=== PATIENT | male | born 1930 | race Caucasian/White ===

== ENCOUNTER 2017-09-30 11:00 | Inpatient (IN) | payer OTHER, BC ==
[2017-10-01 14:30] VITALS: BMI 19.3
[2017-10-01] MEDS ORDERED: SODIUM CHLORIDE 0.45% 1,000 ML IV SCH (15:00)
--- NOTE | 2017-10-01 15:18 | HP ---
Admitting History and Physical - Primary Care Physician PCP: Michael Lenz (While in hospital [facility]) - Admission Chief Complaint: None offered History of Present Illness: 86 yo male with PMHx noted below. Sent in for EVAR 10/01/17. Resting comfortably without complaint. His initial H&P/pre-op clearance was completed on 09/24/[address] Lenz. While patient is in the hospital he will be followed by the [facility]. 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 No: AFIB, Aneurysm, Aortic Insufficiency, Aortic Stenosis, CHF, Deep Vein Thrombosis, [place], Mitral Insufficiency, Mitral Stenosis, Murmur, Pulmonary Hypertension Musculoskeletal: Yes: Chronic low back pain (with radiculopathy) Rheumatology: Yes: Gout, Other (Polymyalgia Rheumatica) Endocrine: Yes: Hypothyroidism. No: [place]'s Disease, [place]'s Disease, Diabetes Insipidus, Diabetes Mellitus, Hyperparathyroidism, Hyperthyroidism, Osteopenia, SIADH, Other - Past Surgical History Past Surgical History: Yes: Appendectomy, CABG ([facility]), Tonsillectomy. No: None, AAA Repair, AICD, Amputation, Arthrosocopy, AV Fistula/Graft, Bariatric Surgery , Breast Biopsy, Bypass, Carotid Endarterectomy, Cataract Removal, Cholecystectomy, Colectomy, Colonoscopy, Colostomy, Craniotomy, , Cystectomy, Hernia Repair, Hysterectomy, Ileal Conduit, Ileosotomy, Joint Replacement, Kidney Transplant, Laminectomy, Liver Transplant, Mastectomy, Nephrectomy, Oopherectomy, Orchiectomy, Permanent Pacemaker, Prostatectomy, Splenectomy, Stent, Thoracotomy, TURP, Tubal Ligation, Upper Endoscopy, Valve Replacement, Vasectomy, Vein Stripping/Ligation - Advance Directives Advance Directives: Yes: Health Care Proxy - Smoking History Smoking history: Never smoked Have you smoked in the past 12 months: No Aproximately how many cigarettes per day: 0 - Alcohol/Substance Use Hx Alcohol Use: Yes (wine rarely) <Elvin Garcia P - Last Filed: 10/01/17 15:13> Home Medications <Elvin Garcia P - Last Filed: 10/01/17 15:13> <Cong Morris - Last Filed: 10/02/17 11:04> - Allergies Allergies/Adverse Reactions: Allergies Allergy/AdvReac Type Severity Reaction Status Date / Time No Known Allergies Allergy Unverified 02/07/12 18:12 - Home Medications Home Medications: Ambulatory Orders Metoprolol Tartrate [Lopressor -] 50 mg PO BID #0 tablet 02/09/12 Levothyroxine [Synthroid -] 50 mcg PO DAILY 12/19/14 Cholecalciferol (Vitamin D3) [Vitamin D3] 5,000 unit PO DAILY 12/20/14 Brimonidine Tartrate/Timolol [Combigan Eye Drops] 1 drop OD DAILY 10/01/17 Brimonidine Tartrate/Timolol [Combigan Eye Drops] 5 ml OS BID 10/01/17 Eluxadoline [Viberzi] 75 mg PO DAILY 10/01/17 Ibuprofen [Advil -] 200 mg PO PRN PRN 10/01/17 Review of Systems - Review of Systems Constitutional: reports: No Symptoms Eyes: reports: No Symptoms HENT: reports: No Symptoms Neck: reports: No Symptoms Cardiovascular: reports: No Symptoms Respiratory: reports: No Symptoms Gastrointestinal: reports: No Symptoms Genitourinary: reports: No Symptoms Musculoskeletal: reports: Back Pain Integumentary: reports: No Symptoms Neurological: reports: No Symptoms Endocrine: reports: No Symptoms Hematology/Lymphatic: reports: No Symptoms Psychiatric: reports: No Symptoms <Elvin Garcia - Last Filed: 10/01/17 15:13> Physical Examination Vital Signs: Vital Signs Temperature 97.3 F L 10/01/17 14:11 Pulse Rate 57 L 10/01/17 14:11 Respiratory Rate 20 10/01/17 14:11 Blood Pressure 88/51 10/01/17 14:11 O2 Sat by Pulse Oximetry (%) 98 10/01/17 14:11 Constitutional: Yes: Well Nourished, No Distress, Calm Eyes: Yes: WNL HENT: Yes: WNL, Atraumatic, Normocephalic Neck: Yes: WNL, Trachea Midline Cardiovascular: Yes: WNL, Regular Rate and Rhythm Respiratory: Yes: WNL, Regular, CTA Bilaterally Gastrointestinal: Yes: WNL, Normal Bowel Sounds. No: Pulsatile Mass ...Rectal Exam: Yes: Deferred Renal/: Yes: WNL Musculoskeletal: Yes: WNL Extremities: Yes: WNL Edema: No Peripheral Pulses WNL: Yes Integumentary: Yes: WNL Neurological: Yes: WNL, Alert ...Motor Strength: WNL Psychiatric: Yes: WNL, Alert <Elvin Garcia P - Last Filed: 10/01/17 15:13> Vital Signs: Vital Signs Temperature 98.5 F 10/02/17 06:00 Pulse Rate 53 L 10/02/17 06:00 Respiratory Rate 20 10/02/17 06:00 Blood Pressure 107/63 10/02/17 06:00 O2 Sat by Pulse Oximetry (%) 100 10/01/17 20:52 <Cong Morris - Last Filed: 10/02/17 11:04> Problem List - Problems (1) Aneurysm of infrarenal abdominal aorta Code(s): I71.4 - ABDOMINAL AORTIC ANEURYSM, WITHOUT RUPTURE <Elvin Garcia P - Last Filed: 10/01/17 15:13> Assessment/Plan Patient is pre-op for EVAR 10/02/17 NPO after midnight except PO meds IV hydration Type and screen SCIP iv abx ordered GI / DVT ppx Medically cleared for procedure (clearance is in pt's paper chart) <Elvin Garcia P - Last Filed: 10/01/17 15:13> History reviewed. Patient with enlarging AAA over past 3 years with rapid rate of growth. Discussed risks of surgery at length with patient and HCP and they wish to proceed. <Cong Morris - Last Filed: 10/02/17 11:04>
[2017-10-01] MEDS: METOPROLOL TARTRATE 50 MG TABLET (FP) PO SCH (21:27)
[2017-10-02] MEDS ORDERED: LEVOTHYROXINE NA 50 MCG TABLET (FP) PO SCH (07:00)
[2017-10-02] MEDS ORDERED: LIDOCAINE HCL 1%, 10 MG/ML (20ML VIAL) ONE (07:30)
[2017-10-02] MEDS ORDERED: HEPARIN NA (PORCINE) 5,000 UNITS/ML 1ML VIAL ONE (07:30)
[2017-10-02] MEDS ORDERED: CEFAZOLIN 1 GM PUSH 1 GM/10 ML DISP.SYRIN IVPUSH ONE (08:00)
[2017-10-02] MEDS ORDERED: MIDAZOLAM HCL 2 MG/2 ML SINGLE DOSE VIAL ONE ×3 (08:11→10:23)
[2017-10-02] MEDS ORDERED: ceFAZolin SODIUM 1 GM VIAL IVPB ONE (08:23)
[2017-10-02] MEDS ORDERED: LIDOCAINE HCL 1%, 10 MG/ML (50 mL VIAL) IJ ONE (08:29)
[2017-10-02] MEDS ORDERED: PROPOFOL 20 ML ONE ×5 (08:33)
[2017-10-02] MEDS ORDERED: PATIENT'S OWN MEDICATION (NON-FORMULARY) (Brimonidine Tartrate/Timolol [Combigan 0.2%-0.5% OD SCH (10:00)
[2017-10-02] MEDS ORDERED: ELUXADOLINE 75 MG PO SCH (10:00)
[2017-10-02] MEDS ORDERED: CHOLECALCIFEROL (VITAMIN D3) 1,000 UNIT TABLET (FP) PO SCH (10:00)
[2017-10-02] MEDS: METOPROLOL TARTRATE 50 MG TABLET (FP) PO SCH ×2 (10:04→21:43)
[2017-10-02] MEDS ORDERED: PROMETHAZINE HCL 25 MG/1 ML VIAL IVPUSH PRN ×2 (11:00→11:45)
[2017-10-02] MEDS ORDERED: oxyCODONE HCL 5 MG TABLET PO PRN ×2 (11:00→11:45)
[2017-10-02] MEDS ORDERED: ONDANSETRON 4 MG/2 ML VIAL IVPUSH PRN ×3 (11:00→21:25)
[2017-10-02] MEDS ORDERED: LACTATED RINGERS SOLUTION 1,000 ML IV SCH ×2 (11:00→11:45)
--- NOTE | 2017-10-02 11:20 | OP ---
Operative Note - Note: Operative Date: 10/02/17 Pre-Operative Diagnosis: Abdominal aortic aneurysm Operation: Percutaneous endovascular repair of abdominal aortic aneurysm. Bilateral iliac angioplasty Findings: Infrarenal saccular aneurysms of abdominal aorta with maximum diameter 6 cm Implants: Cook AAA stent graft main body with 2 docking limbs Post-Operative Diagnosis: Same as Pre-op Surgeon: Cong Morris Hoeing Row Boss: Elvin Garcia Anesthesiologist/FLOOR LAYER TILE: Sathish Ragland Anesthesia: Fractional Estimated Blood Loss (mls): 100
--- NOTE | 2017-10-02 11:36 | SURG ---
Surgery Computer Scientist Note Computer Scientist: Elvin Garcia PA-C Date of Service: 10/02/17 Diagnosis: Infrarenal Abdominal aortic aneurysm Procedure: Percutaneous endovascular repair of abdominal aortic aneurysm. Bilateral iliac angioplasty I was present for the entirety of the operative procedure. For further detail, please refer to operative report. Visit type - Case Type Case Type: Scheduled Admission
--- NOTE | 2017-10-02 13:18 | CONSULT ---
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 No: AFIB, Aneurysm, Aortic Insufficiency, Aortic Stenosis, CHF, Deep Vein Thrombosis, [place], Mitral Insufficiency, Mitral Stenosis, Murmur, Pulmonary Hypertension Musculoskeletal: Yes: Chronic low back pain (with radiculopathy) Rheumatology: Yes: Gout, Other (Polymyalgia Rheumatica) Endocrine: Yes: Hypothyroidism. No: [place]'s Disease, [place]'s Disease, Diabetes Insipidus, Diabetes Mellitus, Hyperparathyroidism, Hyperthyroidism, Osteopenia, SIADH, Other - Past Surgical History Past Surgical History: Yes: Appendectomy, CABG ([facility]), Tonsillectomy. No: None, AAA Repair, AICD, Amputation, Arthrosocopy, AV Fistula/Graft, Bariatric Surgery , Breast Biopsy, Bypass, Carotid Endarterectomy, Cataract Removal, Cholecystectomy, Colectomy, Colonoscopy, Colostomy, Craniotomy, , Cystectomy, Hernia Repair, Hysterectomy, Ileal Conduit, Ileosotomy, Joint Replacement, Kidney Transplant, Laminectomy, Liver Transplant, Mastectomy, Nephrectomy, Oopherectomy, Orchiectomy, Permanent Pacemaker, Prostatectomy, Splenectomy, Stent, Thoracotomy, TURP, Tubal Ligation, Upper Endoscopy, Valve Replacement, Vasectomy, Vein Stripping/Ligation - Alcohol/Substance Use Hx Alcohol Use: Yes (wine rarely) - Smoking History Smoking history: Never smoked Have you smoked in the past 12 months: No Aproximately how many cigarettes per day: 0 Home Medications - Allergies Allergies/Adverse Reactions: Allergies Allergy/AdvReac Type Severity Reaction Status Date / Time No Known Allergies Allergy Unverified 02/07/12 18:12 - Home Medications Home Medications: Ambulatory Orders Metoprolol Tartrate [Lopressor -] 50 mg PO BID #0 tablet 02/09/12 Levothyroxine [Synthroid -] 50 mcg PO DAILY 05/24/15 Cholecalciferol (Vitamin D3) [Vitamin D3] 5,000 unit PO DAILY 12/20/14 Brimonidine Tartrate/Timolol [Combigan Eye Drops] 1 drop OD DAILY 10/01/17 Brimonidine Tartrate/Timolol [Combigan Eye Drops] 5 ml OS BID 10/01/17 Eluxadoline [Viberzi] 75 mg PO DAILY 10/01/17 Ibuprofen [Advil -] 200 mg PO PRN PRN 10/01/17 Review of Systems - Review of Systems Constitutional: denies: Chills, Fever Physical Exam Vital Signs: Vital Signs Temperature 97.6 F 10/02/17 10:57 Pulse Rate 56 L 10/02/17 12:30 Respiratory Rate 16 10/02/17 12:30 Blood Pressure 118/43 10/02/17 12:30 O2 Sat by Pulse Oximetry (%) 100 10/02/17 12:30 Constitutional: Yes: No Distress, Calm Cardiovascular: Yes: Regular Rate and Rhythm Respiratory: Yes: CTA Bilaterally Gastrointestinal: Yes: Normal Bowel Sounds, Soft. No: Tenderness Renal/: Yes: Other (left groin-- surgical site-- no hematoma) Edema: No Imaging - Results EKG: Other (Ekg -- office-- noted -- NSR) Problem List - Problems (1) Aneurysm of infrarenal abdominal aorta Assessment/Plan: s/p repair today check labs in AM check post op EKG clear liquid diet per Surgeon Lovenox sc for DVT prophylaxis Code(s): I71.4 - ABDOMINAL AORTIC ANEURYSM, WITHOUT RUPTURE (2) CAD (coronary artery disease) Assessment/Plan: clinically stable continue with Lopressor and ASA Code(s): I25.10 - ATHSCL HEART DISEASE OF [place] CORONARY ARTERY W/O ANG PCTRS Qualifiers: [place] vs. transplanted heart: [place] heart Associated angina: without angina (3) HTN (hypertension) Assessment/Plan: controlled continue with Lopressor Code(s): I10 - ESSENTIAL (PRIMARY) HYPERTENSION (4) Hypothyroid Assessment/Plan: continue with Synthroid Code(s): E03.9 - HYPOTHYROIDISM, UNSPECIFIED Qualifiers: Hypothyroidism type: other Qualified Code(s): E03.8 - Other specified hypothyroidism Assessment/Plan PLAN Noted meds Pt will start clears per surgeon continue with meds check post op EKG Lovenox sc for DVT prophylaxis
[2017-10-02] MEDS: SODIUM CHLORIDE 0.45% 1,000 ML IV SCH ×2 (14:00)
--- NOTE | 2017-10-02 14:34 | EKG ---
Test Reason : Blood Pressure : / mmHG Vent. Rate : 060 BPM Atrial Rate : 060 BPM P-R Int : 222 ms QRS Dur : 084 ms QT Int : 424 ms P-R-T Axes : 084 031 036 degrees QTc Int : 424 ms SINUS RHYTHM WITH 1ST DEGREE A-V BLOCK LOW VOLTAGE QRS BORDERLINE ECG WHEN COMPARED WITH ECG OF 19-DEC-2014 18:55, IN INTERVAL HAS INCREASED Confirmed by LETHA DOSHI, CHARLOTTE ([id number]) on 10/02/2017 2:34:11 PM Referred By: Cong Morris Confirmed By:CHARLOTTE MONAE MD
[2017-10-02] MEDS: ASPIRIN 81 MG CHEWABLE TABLETS PO SCH (16:08)
[2017-10-02] MEDS: PATIENT'S OWN MEDICATION (NON-FORMULARY) (Brimonidine Tartrate/Timolol [Combigan 0.2%-0.5% OS SCH (16:10)
--- NOTE | 2017-10-02 17:00 | PN ---
Progress Note (short form) - Note Progress Note: Patient received from OR in ICU for close monitoring post op. Pt had Infrarenal saccular aneurysm of abdominal aorta with a diameter of 6cm, underwent Percutaneous endovascular repair of abdominal aortic aneurysm with B/L iliac angioplasty done today. Currently hemodynamically stable. No complaints.
[2017-10-02 17:39] LABS: BASO % 0.2 % (0-2.0); EOS % 1.4 % (0-4.5); HEMATOCRIT 33.4 % (35.4-49); HEMOGLOBIN 11.6 GM/dL (11.7-16.9); LYMPH % 8.1 % (8-40); MCH 31.8 pg (25.7-33.7); MCHC 34.8 g/dl (32.0-35.9); MEAN CELL VOLUME 91.1 fl (80-96); MEAN PLT VOLUME 8.4 fl (7.5-11.1); MONO % 11.2 % (3.8-10.2); NEUT % 79.1 % (42.8-82.8); PLATELET COUNT 166 K/MM3 (134-434); RBC 3.66 M/mm3 (4.00-5.60); RDW 12.7 % (11.9-15.9); WHITE BLOOD COUNT 10.2 K/mm3 (4.0-10.0)
[2017-10-02 17:54] LABS: ALBUMIN 3.4 g/dl (3.4-5.0); ANION GAP 14 (8-16); BILIRUBIN,TOTAL 0.8 mg/dL (0.2-1.0); BLOOD UREA NITROGEN 29 mg/dL (7-18); CALCIUM 8.7 mg/dL (8.5-10.1); CHLORIDE 103 mmol/L (98-107); CO2 24 mmol/L (21-32); CREATININE 1.5 mg/dL (0.7-1.3); GLUCOSE,RANDOM 105 mg/dL (74-106); MAGNESIUM 1.9 mg/dL (1.8-2.4); PHOSPHOROUS 2.6 mg/dL (2.5-4.9); POTASSIUM 3.7 mmol/L (3.5-5.1); SGOT/AST 26 U/L (15-37); SGPT/ALT 25 U/L (12-78); SODIUM 141 mmol/L (136-145); TOT PROT 6.7 g/dl (6.4-8.2)
[2017-10-02 17:55] LABS: ALK PHOS 94 U/L (45-117)
[2017-10-02] MEDS ORDERED: CEFAZOLIN 1 GM/D5W 50 ML IVPB SCH (18:00)
[2017-10-02] MEDS: CEFAZOLIN 1 GM/D5W 1 GM/50 ML BAG IVPB SCH (19:00)
--- NOTE | 2017-10-02 19:08 | CONSULT ---
Consult - text type - Consultation Consultation Note: [facility] CC: POD #0 overnight observation HPI: Briefly Mr Kamara 86 yo male with PMHx of CAD, HTN, HL, known enlarging AAA admitted for EVAR 10/01/[address] Morris. Surgery (Percutaneous endovascular repair of abdominal aortic aneurysm. Bilateral iliac angioplasty) was uneventful, estimated blood loss on 100cc. Pt recovered in PACU well admitted to ICU for overnight observation. Pt alert, mildly confused, without significant pain or distress, ambulatory with assist and tolerating clears. 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 No: AFIB, Aneurysm, Aortic Insufficiency, Aortic Stenosis, CHF, Deep Vein Thrombosis, [place], Mitral Insufficiency, Mitral Stenosis, Murmur, Pulmonary Hypertension Musculoskeletal: Yes: Chronic low back pain (with radiculopathy) Rheumatology: Yes: Gout, Other (Polymyalgia Rheumatica) Endocrine: Yes: Hypothyroidism. No: [place]'s Disease, [place]'s Disease, Diabetes Insipidus, Diabetes Mellitus, Hyperparathyroidism, Hyperthyroidism, Osteopenia, SIADH, Other - Past Surgical History Past Surgical History: Yes: Appendectomy, CABG ([facility]), Tonsillectomy. No: None, AAA Repair, AICD, Amputation, Arthrosocopy, AV Fistula/Graft, Bariatric Surgery , Breast Biopsy, Bypass, Carotid Endarterectomy, Cataract Removal, Cholecystectomy, Colectomy, Colonoscopy, Colostomy, Craniotomy, , Cystectomy, Hernia Repair, Hysterectomy, Ileal Conduit, Ileosotomy, Joint Replacement, Kidney Transplant, Laminectomy, Liver Transplant, Mastectomy, Nephrectomy, Oopherectomy, Orchiectomy, Permanent Pacemaker, Prostatectomy, Splenectomy, Stent, Thoracotomy, TURP, Tubal Ligation, Upper Endoscopy, Valve Replacement, Vasectomy, Vein Stripping/Ligation - Advance Directives Advance Directives: Yes: Health Care Proxy - Smoking History Smoking history: Never smoked Have you smoked in the past 12 months: No Aproximately how many cigarettes per day: 0 - Alcohol/Substance Use Hx Alcohol Use: Yes (wine rarely) Ambulatory Orders Metoprolol Tartrate [Lopressor -] 50 mg PO BID #0 tablet 02/09/12 Levothyroxine [Synthroid -] 50 mcg PO DAILY 12/19/14 Cholecalciferol (Vitamin D3) [Vitamin D3] 5,000 unit PO DAILY 12/20/14 Brimonidine Tartrate/Timolol [Combigan Eye Drops] 1 drop OD DAILY 10/01/17 Brimonidine Tartrate/Timolol [Combigan Eye Drops] 5 ml OS BID 10/01/17 Eluxadoline [Viberzi] 75 mg PO DAILY 10/01/17 Ibuprofen [Advil -] 200 mg PO PRN PRN 10/01/17 Active Medications Aspirin (Asa -) 81 mg PO DAILY [facility] Last Admin: 10/02/17 16:08 Dose: Not Given Chlorhexidine Gluconate (Hibiclens For Decolonization -) 1 applic TP HS [facility] Cholecalciferol (Vitamin D3 -) 5,000 unit PO DAILY [facility] Enoxaparin Sodium (Lovenox -) 40 mg SQ DAILY [facility] Cefazolin Sodium (Ancef 1 Gm Premixed Ivpb -) 1 gm in 50 mls @ 100 mls/hr IVPB Q8H-IV [facility] Stop: 10/03/17 02:29 Sodium Chloride (1/2 Normal Saline) 1,000 mls @ 60 mls/hr IV ASDIR [facility] Last Admin: 10/02/17 14:00 Dose: 0 mls Levothyroxine Sodium (Synthroid -) 50 mcg PO DAILY@0700 [facility] Metoprolol Tartrate (Lopressor -) 50 mg PO BID [facility] Mupirocin (Bactroban Ointment (For Decolonization) -) 1 applic NS BID [facility] Stop: 10/07/17 21:59 Non-Formulary Medication (Brimonidine Tartrate/Timolol [Combigan 0.2%-0.5% Eye Drops]) 1 drop OD DAILY [facility] Non-Formulary Medication (Brimonidine Tartrate/Timolol [Combigan 0.2%-0.5% Eye Drops]) 5 ml OS BID [facility] Non-Formulary Medication (Eluxadoline [Viberzi]) 75 mg PO DAILY [facility] Oxycodone HCl (Roxicodone -) 5 mg PO Q4H PRN PRN Reason: PAIN LEVEL 1-5 Stop: 10/03/17 10:59 CBC, BMP 10/02/17 17:00 10/02/17 17:00 PE: Gen: eld man, awake, alert, mildly confused (apparently baseline) PULM: clear anterior, no wheezes CV: RRR, no m/r/g appreciated ABD: soft, no palpable masses, + BS, loose stool EXT: w/w/p, no edema NEuro: non focal A/ 86 y/o man POD #0 Percutaneous endovascular repair of abdominal aortic aneurysm. Bilateral iliac angioplasty recovering well P/ -o/n observation -lovenox for DVT prophy -oxycodone for pain control -ok for clears diet
--- NOTE | 2017-10-02 20:25 | OP ---
DATE OF OPERATION: 10/02/2017 SURGEON: Cong Godoy M.D. RANCH HAND SUPERVISOR: Sean Lu PROCEDURE: Percutaneous endovascular repair of abdominal aortic aneurysm with bilateral iliac angioplasty. PREOPERATIVE DIAGNOSIS: Abdominal aortic aneurysm. POSTOPERATIVE DIAGNOSIS: Abdominal aortic aneurysm. ANESTHESIA: Fractional. ANESTHESIOLOGIST: Sathish Ragland M.D. OPERATIVE FINDINGS: There were 2 infrarenal saccular aneurysms of the abdominal aorta with the largest measuring approximately 6 cm in greatest diameter. There was moderate stenosis of the proximal common iliac artery on both sides. Both renal arteries were patent with an obvious stenosis in the right renal artery. OPERATIVE PROCEDURE: Following routine patient identification, intravenous sedation was established. The abdomen and both groins were prepped with Chloraprep. Timeout was performed. Using real time duplex imaging, the right common femoral artery was identified at a point proximal to the bifurcation, free of atherosclerotic plaque. Lidocaine was infiltrated in the skin and subcutaneous tissue over the artery, and under duplex guidance, a Micropuncture needle was advanced from the skin into the artery. A Micropuncture wire was advanced proximally into the iliac artery, and the needle was exchanged for a 5 [place] catheter. A DadaJOE.comson wire was then advanced through the catheter into the iliac artery. The catheter was removed and a 6 [place] sheath was replaced. Two Proglide Perclose devices were then placed at 10 o'clock and 2 o'clock positions in the artery but not tightened. An 8 [place] sheath was then exchanged over the wire into the vessel. The left femoral artery sheath was then placed in similar fashion, and again 2 Proglides were placed at the 10 o'clock and 2 o'clock position but not tightened. The 8 [place] sheath was placed to that side. The patient was systemically heparinized. An angle tip wire and catheter were then advanced through the left sheath, then under fluoroscopic guidance the wire catheter advanced into the aorta above the level of the aneurysm. A pigtail marking catheter was then placed over the wire and used to perform a contrast angiogram using digital technique. The location of the renal arteries was marked. A Lunderquist wire was then advanced through the right femoral sheath with the aid of a Glidecath into the thoracic aorta. The Cook bifurcated aortic stent graft main body was then prepped and exchanged over the wire on the right side and advanced into the abdominal aorta. The first 2 stents of the device were deployed, and then repeat magnified imaging of the renal arteries was obtained in order to position the stent graft, which was then deployed at this level. The graft was opened until the contralateral gate was visualized. The pigtail catheter was removed over a wire and then wire and catheter used to cannulate the contralateral gate. This required placement of a 12 [place] sheath, and the left iliac artery for support. The wire was advanced into the thoracic aorta, and pigtail catheter placed over the wire and contrast injected to confirm intraluminal placement. The suprarenal stent was then deployed. The left iliac artery was then mapped with contrast injection through the sheath, and the left iliac docking limb was positioned and deployed down to the bifurcation of the iliac artery. The remainder of the main body was deployed, and then the right iliac artery was mapped with contrast injection, and the right iliac limb placed in a similar fashion. A Coda balloon was used to dilate the proximal stent graft at the area of juncture at the bifurcation and both distal iliac arteries. Pigtail catheter was replaced, and repeat imaging was performed. This revealed a good proximal seal with no evidence of endoleak, and flow through both limbs with evidence of some stenosis at the bifurcated area. Decision was made to perform balloon angioplasty. The wires were replaced through the stent graft and two 10-mm x 40 mm angioplasty balloons were inflated simultaneously in a kissing balloon fashion to treat the iliac arteries. This required dilatation in 2 areas with angiogram in between until a final angiogram showed good flow through both iliac limbs with no significant residual stenosis. The balloons were removed. The left femoral sheath was then backed out while the Perclose sutures were tightened around the wire. Hemostasis looked good. The wire was removed, and the Perclose was fully tightened and then cut. The right femoral sheath was removed in a similar fashion with closure using the Perclose device without complication. Pressure was applied to both groins until bleeding ceased. The skin wounds were closed with subcuticular sutures of 4-0 Biosyn and sterile dressings were applied, and the patient was taken to the recovery room in stable condition. CONG GODOY M.D. [id number]
[2017-10-02] MEDS: QUEtiapine FUMARATE 25 MG TABLET (FP) PO SCH (21:44)
[2017-10-02] MEDS: CHLORHEXIDINE GLUCONATE 4% CLEANSER FOR DECOLONIZATION TP SCH (22:14)
[2017-10-02] MEDS: MUPIROCIN 2% TOPICAL OINTMENT FOR DECOLONIZATION NS SCH (22:15)
[2017-10-03] MEDS: CEFAZOLIN 1 GM/D5W 1 GM/50 ML BAG IVPB SCH (01:37)
[2017-10-03 06:28] LABS: HEMATOCRIT 28.7 % (35.4-49); MCH 31.7 pg (25.7-33.7); MCHC 34.8 g/dl (32.0-35.9); MEAN CELL VOLUME 90.9 fl (80-96); MEAN PLT VOLUME 8.3 fl (7.5-11.1); PLATELET COUNT 148 K/MM3 (134-434); RBC 3.15 M/mm3 (4.00-5.60); RDW 12.5 % (11.9-15.9); WHITE BLOOD COUNT 10.9 K/mm3 (4.0-10.0)
[2017-10-03] MEDS: LEVOTHYROXINE NA 50 MCG TABLET (FP) PO SCH (06:52)
[2017-10-03 06:57] LABS: CHLORIDE 103 mmol/L (98-107); POTASSIUM 3.4 mmol/L (3.5-5.1); SODIUM 141 mmol/L (136-145)
[2017-10-03 07:09] LABS: ALBUMIN 3.1 g/dl (3.4-5.0); ALK PHOS 84 U/L (45-117); ANION GAP 13 (8-16); BILIRUBIN,TOTAL 0.8 mg/dL (0.2-1.0); BLOOD UREA NITROGEN 29 mg/dL (7-18); CALCIUM 8.4 mg/dL (8.5-10.1); CO2 25 mmol/L (21-32); CREATININE 1.7 mg/dL (0.7-1.3); GLUCOSE,RANDOM 115 mg/dL (74-106); SGOT/AST 49 U/L (15-37); SGPT/ALT 25 U/L (12-78); TOT PROT 5.9 g/dl (6.4-8.2)
--- NOTE | 2017-10-03 08:10 | PN ---
Progress Note, Physician Chief Complaint: Day #1 s/p endovasclar AAA repair - Current Medication List Current Medications: Active Medications Aspirin (Asa -) 81 mg PO DAILY [facility] Last Admin: 10/02/17 16:08 Dose: Not Given Chlorhexidine Gluconate (Hibiclens For Decolonization -) 1 applic TP HS [facility] Last Admin: 10/02/17 22:14 Dose: 1 applic Cholecalciferol (Vitamin D3 -) 5,000 unit PO DAILY [facility] Enoxaparin Sodium (Lovenox -) 40 mg SQ DAILY [facility] Sodium Chloride (1/2 Normal Saline) 1,000 mls @ 60 mls/hr IV ASDIR [facility] Last Admin: 10/02/17 14:00 Dose: 60 mls/hr Levothyroxine Sodium (Synthroid -) 50 mcg PO DAILY@0700 [facility] Last Admin: 10/03/17 06:52 Dose: 50 mcg Metoprolol Tartrate (Lopressor -) 50 mg PO BID [facility] Last Admin: 10/02/17 21:43 Dose: 50 mg Mupirocin (Bactroban Ointment (For Decolonization) -) 1 applic NS BID [facility] Stop: 10/07/17 21:59 Last Admin: 10/02/17 22:15 Dose: 1 applic Non-Formulary Medication (Brimonidine Tartrate/Timolol [Combigan 0.2%-0.5% Eye Drops]) 1 drop OD DAILY [facility] Non-Formulary Medication (Brimonidine Tartrate/Timolol [Combigan 0.2%-0.5% Eye Drops]) 5 ml OS BID [facility] Non-Formulary Medication (Eluxadoline [Viberzi]) 75 mg PO DAILY [facility] Ondansetron HCl (Zofran Injection) 4 mg IVPUSH Q6H PRN PRN Reason: NAUSEA Last Admin: 10/02/17 21:43 Dose: 4 mg Oxycodone HCl (Roxicodone -) 5 mg PO Q4H PRN PRN Reason: PAIN LEVEL 1-5 Stop: 10/03/17 10:59 Quetiapine Fumarate (Seroquel -) 25 mg PO HS [facility] Last Admin: 10/02/17 21:44 Dose: 25 mg - Objective Vital Signs: Vital Signs Temperature 98.2 F 10/03/17 06:00 Pulse Rate 67 10/03/17 06:00 Respiratory Rate 16 10/03/17 06:00 Blood Pressure 112/52 10/03/17 06:00 O2 Sat by Pulse Oximetry (%) 95 10/02/17 21:00 Labs: CBC, BMP 10/03/17 05:40 10/03/17 05:40 Assessment/Plan Pt with some confusion this am in ICU. VSS, no apparent anethetic issues
[2017-10-03] MEDS ORDERED: ACETAMINOPHEN 1000 MG/100 ML VIAL (NON FORMULARY) IVPB PRN ×3 (08:14→15:06)
[2017-10-03] MEDS ORDERED: ACETAMINOPHEN 325 MG TABLET (FP) PO PRN ×2 (08:18→15:07)
--- NOTE | 2017-10-03 08:24 | PN ---
Progress Note (short form) - Note Progress Note: POD#1 Pt with confusion overnight, also having diarrhea(non-bloody). Penny catheter placed for urinary retention yesterday. Vital Signs Period Temp Pulse Resp BP Sys/Michel Pulse Ox Last 24 Hr 97.6 F-98.6 F 56-98 14-22 112-1126/43-69 95-100 UOP: 800ml clear/yellow urine GEN: Alert and follows to commands, not oriented to place/person Neuro: moving all extremities. tool and die repair strenth equal b/l CV: RRR Lungs: CTA b/l ABD: soft, non-distended, non-tender. B/l groins c/d/i with dressing. No evidence of hematoma LE: +2 DP pulses/feet warm b/l. 5/5 plantar flexion b/l CBC, BMP 03//18 05:40 03//18 05:40 Laboratory Tests 10/02/18 //18 17:00 17:00 WBC 10.2 H Hgb 11.6 L D Hct 33.4 L D Plt Count 166 Sodium 141 Potassium 3.7 Chloride 103 Carbon Dioxide 24 Anion Gap 14 BUN 29 H Creatinine 1.5 H A/p: 86 yo male s/p EVAR, POD#1 with h/o IBS Pt with multiple diarrhea episodes with a h/o IBS, ordered his IBS medications to start now, also c/diff pending. GI consult with his GI physician Dr. Salazar ordered Continue IV hydration while having diarrhea with some confusion, oral intake may be poor Pt with restraint and augustine, confused but non combative. OOB to chair when less confused Hold narcotics, IV tylenol/oral tylenol for pain D/w Dr. Morris
[2017-10-03] MEDS: ASPIRIN 81 MG CHEWABLE TABLETS PO SCH (09:26)
[2017-10-03] MEDS: ENOXAPARIN NA (PORCINE) 40 MG/0.4 ML DISP.SYRIN SQ SCH (09:27)
[2017-10-03] MEDS: METOPROLOL TARTRATE 50 MG TABLET (FP) PO SCH ×2 (09:27→21:26)
[2017-10-03] MEDS: MUPIROCIN 2% TOPICAL OINTMENT FOR DECOLONIZATION NS SCH ×2 (09:28→21:25)
[2017-10-03] MEDS: CHOLECALCIFEROL (VITAMIN D3) 1,000 UNIT TABLET (FP) PO SCH (09:28)
[2017-10-03] MEDS ORDERED: ENOXAPARIN NA (PORCINE) 40 MG/0.4 ML DISP.SYRIN SQ SCH (10:00)
[2017-10-03] MEDS ORDERED: ELUXADOLINE 75 MG PO SCH (10:00)
[2017-10-03] MEDS ORDERED: POTASSIUM CHLORIDE TABS 20 MEQ TABLET.ER (FP) PO ONE (10:00)
--- NOTE | 2017-10-03 10:28 | PN ---
Progress Note, Physician Chief Complaint: pt confused last night trying to climb out of bed, sotelo also placed yesterday as he was retaining Pt in ICU for observation- POD #2 Pt telling me that he tried going to bank and is unable to d o so Spoke with DR Lenz-- PMD-- pt is mild dementia- able to make needs known - Current Medication List Current Medications: Active Medications Acetaminophen (Tylenol -) 650 mg PO Q6H PRN PRN Reason: PAIN Acetaminophen (Ofirmev Injection -) 1,000 mg IVPB Q8H PRN PRN Reason: PAIN Aspirin (Asa -) 81 mg PO DAILY [facility] Last Admin: 10/03/17 09:26 Dose: 81 mg Chlorhexidine Gluconate (Hibiclens For Decolonization -) 1 applic TP HS [facility] Last Admin: 10/02/17 22:14 Dose: 1 applic Cholecalciferol (Vitamin D3 -) 5,000 unit PO DAILY [facility] Last Admin: 10/03/17 09:28 Dose: 5,000 unit Enoxaparin Sodium (Lovenox -) 40 mg SQ DAILY [facility] Last Admin: 10/03/17 09:27 Dose: 40 mg Sodium Chloride (1/2 Normal Saline) 1,000 mls @ 60 mls/hr IV ASDIR [facility] Last Admin: 10/02/17 14:00 Dose: 60 mls/hr Levothyroxine Sodium (Synthroid -) 50 mcg PO DAILY@0700 [facility] Last Admin: 10/03/17 06:52 Dose: 50 mcg Metoprolol Tartrate (Lopressor -) 50 mg PO BID [facility] Last Admin: 10/03/17 09:27 Dose: 50 mg Mupirocin (Bactroban Ointment (For Decolonization) -) 1 applic NS BID [facility] Stop: 10/07/17 21:59 Last Admin: 10/03/17 09:28 Dose: 1 applic Non-Formulary Medication (Brimonidine Tartrate/Timolol [Combigan 0.2%-0.5% Eye Drops]) 1 drop OD DAILY [facility] Non-Formulary Medication (Brimonidine Tartrate/Timolol [Combigan 0.2%-0.5% Eye Drops]) 5 ml OS BID [facility] Non-Formulary Medication (Eluxadoline [Viberzi]) 75 mg PO BID [facility] Ondansetron HCl (Zofran Injection) 4 mg IVPUSH Q6H PRN PRN Reason: NAUSEA Last Admin: 10/02/17 21:43 Dose: 4 mg Quetiapine Fumarate (Seroquel -) 25 mg PO HS [facility] Last Admin: 10/02/17 21:44 Dose: 25 mg - Objective Vital Signs: Vital Signs Temperature 98.2 F 10/03/17 06:00 Pulse Rate 102 H 10/03/17 08:00 Respiratory Rate 20 10/03/17 08:00 Blood Pressure 133/84 10/03/17 08:00 O2 Sat by Pulse Oximetry (%) 95 10/02/17 21:00 Constitutional: Yes: No Distress, Calm Cardiovascular: Yes: Regular Rate and Rhythm Respiratory: Yes: CTA Bilaterally Gastrointestinal: Yes: Normal Bowel Sounds, Soft. No: Tenderness Genitourinary: Yes: Other (groin-- b/l-- no hematoma) Edema: No Labs: CBC, BMP 10/03/17 05:40 10/03/17 05:40 Problem List - Problems (1) Aneurysm of infrarenal abdominal aorta Assessment/Plan: s/p repair POD #2 post op EKG -- noted-- NSR Lovenox sc for DVT prophylaxis Code(s): I71.4 - ABDOMINAL AORTIC ANEURYSM, WITHOUT RUPTURE (2) CAD (coronary artery disease) Assessment/Plan: clinically stable continue with Lopressor and ASA Code(s): I25.10 - ATHSCL HEART DISEASE OF [place] CORONARY ARTERY W/O ANG PCTRS Qualifiers: [place] vs. transplanted heart: [place] heart Associated angina: without angina (3) HTN (hypertension) Assessment/Plan: controlled continue with Lopressor Code(s): I10 - ESSENTIAL (PRIMARY) HYPERTENSION (4) Hypothyroid Assessment/Plan: continue with Synthroid Code(s): E03.9 - HYPOTHYROIDISM, UNSPECIFIED Qualifiers: Hypothyroidism type: other Qualified Code(s): E03.8 - Other specified hypothyroidism (5) Diarrhea Assessment/Plan: stool for cdiff sent pt received post op antibiotics, but also has a h/o IBS-- GI - Dr wang consulted Code(s): R19.7 - DIARRHEA, UNSPECIFIED (6) Metabolic encephalopathy Assessment/Plan: Mild dementia Altered mental status due to surgery , anesthesia , pain meds Tylenol only for now will try voiding trial in AM Code(s): G93.41 - METABOLIC ENCEPHALOPATHY
[2017-10-03] MEDS ORDERED: SODIUM CHLORIDE 0.45% 1,000 ML IV SCH (11:30)
--- NOTE | 2017-10-03 12:25 | PN ---
Physical Exam: SUBJECTIVE: Pt overnight reported to be confused and agitated pulling off leads and IV's. Pt had augustine vest placed which did not help with his potential for self-harm in his confused state and limb restraints were then added. Pt also reported to have urinary retention with a 600cc bladder scan. Pt had sotelo placed and had 800cc of urine drain. Currently patient is alert and oriented only to self. Pt denies any pain. Pt overnight had multiple watery bowel movements which pt states is his normal IBS response, however a c. diff culture was also sent. No blood in stool was noted at all. OBJECTIVE: Vital Signs Period Temp Pulse Resp BP Sys/Michel Pulse Ox Last 24 Hr 98.0 F-98.6 F 56-102 16-22 112-1126/43-84 95-100 GENERAL: NAD, awake, pleasant, oriented x1 HEENT: No JVD, EOMI, OTTO, NC/AT, sclera anicteric LUNGS: CTA bilaterally, no wheezes, no crackles, no accessory muscle use. HEART: RRR, S1, S2 without murmur ABDOMEN: Soft, nontender, nondistended, normoactive bowel sounds, no guarding, no bruit auscultated, groin incisions C/D/I with Tegaderm and 4x4 EXTREMITIES: 2+ DP pulses, warm, well-perfused, no edema. NEUROLOGICAL: Cranial nerves II through XII grossly intact. Strength 5/5 throughout with appropriate following of commands. Sensations intact throughout. PSYCH: Normal mood, normal affect. SKIN: Warm, dry, normal turgor, no rashes or lesions noted, incisions as above Laboratory Results - last 24 hr 10/03/17 05:40 WBC 10.9 H RBC 3.15 L Hgb 10.0 L D Hct 28.7 L MCV 90.9 MCH 31.7 MCHC 34.8 RDW 12.5 Plt Count 148 MPV 8.3 Neutrophils % Lymphocytes % Monocytes % Eosinophils % Basophils % Sodium Potassium Chloride Carbon Dioxide Anion Gap BUN Creatinine Creat Clearance w eGFR Random Glucose Calcium Phosphorus Magnesium Total Bilirubin AST ALT Alkaline Phosphatase Total Protein Albumin 10/03/17 05:40 WBC RBC Hgb Hct MCV MCH MCHC RDW Plt Count MPV Neutrophils % Lymphocytes % Monocytes % Eosinophils % Basophils % Sodium 141 Potassium 3.4 L Chloride 103 Carbon Dioxide 25 Anion Gap 13 BUN 29 H Creatinine 1.7 H Creat Clearance w eGFR 38.41 Random Glucose 115 H Calcium 8.4 L Phosphorus Magnesium Total Bilirubin 0.8 AST 49 H D ALT 25 Alkaline Phosphatase 84 Total Protein 5.9 L Albumin 3.1 L Active Medications Generic Name Dose Route Start Last Admin Trade Name Freq PRN Reason Stop Dose Admin Acetaminophen 650 mg 10/03/17 08:18 Tylenol - PO Q6H PRN PAIN Acetaminophen 1,000 mg 10/03/17 09:18 Ofirmev Injection - IVPB Q8H PRN PAIN Aspirin 81 mg 10/02/17 11:30 10/03/17 09:26 Asa - PO 81 mg DAILY [facility] Administration Chlorhexidine Gluconate 1 applic 10/02/17 22:00 10/02/17 22:14 Hibiclens For Decolonization - TP 1 applic HS [facility]Y Administration Cholecalciferol 5,000 unit 10/03/17 10:00 10/03/17 09:28 Vitamin D3 - PO 5,000 unit DAILY [facility] Administration Enoxaparin Sodium 40 mg 10/03/17 10:00 10/03/17 09:27 Lovenox - SQ 40 mg DAILY [facility] Administration Sodium Chloride 1,000 mls @ 75 mls/hr 10/03/17 11:30 1/2 Normal Saline IV ASDIR [facility] Levothyroxine Sodium 50 mcg 10/03/17 07:00 10/03/17 06:52 Synthroid - PO 50 mcg DAILY@0700 [facility] Administration Metoprolol Tartrate 50 mg 10/02/17 22:00 10/03/17 09:27 Lopressor - PO 50 mg BID [facility] Administration Mupirocin 1 applic 10/02/17 22:00 10/03/17 09:28 Bactroban Ointment (For Decolonization) - NS 10/07/17 21:59 1 applic BID [facility] Administration Non-Formulary Medication 1 drop 10/03/17 10:00 Brimonidine Tartrate/Timolol [Combigan 0.2%-0.5% Eye Drops] OD DAILY [facility] Non-Formulary Medication 5 ml 10/02/17 22:00 Brimonidine Tartrate/Timolol [Combigan 0.2%-0.5% Eye Drops] OS BID [facility] Non-Formulary Medication 75 mg 10/03/17 10:00 Eluxadoline [Viberzi] PO BID [facility] Ondansetron HCl 4 mg 10/02/17 21:25 10/02/17 21:43 Zofran Injection IVPUSH 4 mg Q6H PRN Administration NAUSEA Quetiapine Fumarate 25 mg 10/02/17 22:00 10/02/17 21:44 Seroquel - PO 25 mg HS [facility]STY Administration ASSESSMENT/PLAN: 86yo M s/p percutaneous EVAR with bilateral angioplasty of the iliac arteries Neuro: Confusion: Most likely sundowning in elderly patient --On rounds with attending patient had improvement to orientation to place and self --Will trial off limb restraints Continue Seroquel 25mg PO HS Continue to reorient as necessary Resp: No respiratory distress Cardiovascular: AAA s/p EVAR POD1 --Dr. Morris on case --Monitor of any signs of bleeding --Clear liquids currently; if tolerates can advance to soft diet ( lactose free) --Control BP with Lopressor 50mg PO BID Renal: Renal insufficiency --Monitor Cr --Pt looks dry today and most likely prerenal with suspected improvement with diet and fluids as needed FEN: Fluids: Can increased to 1/2NS @75cc/hr Electrolyte abnormalities: Hypokalemia repleted with Kdur 40mEq Nutrition: Clear liquids; advance to soft as tolerated PPX: DVT - SCDs in place Deconditioning: OOB to chair today Case discussed with Dr. Shahida Pierson, DO - IM PGY-1 Visit type - Emergency Visit Emergency Visit: No - New Patient This patient is new to me today: No - Critical Care Critical Care patient: Yes Total Critical Care Time (in minutes): 35 Critical Care Statement: The care of this patient involved high complexity decision making to prevent further life threatening deterioration of the patient 's condition and/or to evaluate & treat vital organ system(s) failure or risk of failure.
--- NOTE | 2017-10-03 12:28 | PN ---
Teaching Attending Note Name of Resident: Sathish Pierson ATTENDING PHYSICIAN STATEMENT I saw and evaluated the patient. I reviewed the resident's note and discussed the case with the resident. I agree with the resident's findings and plan as documented. SUBJECTIVE: Patient seen and examined in the ICU. Awake and interactive. Was confused overnight, requiring Seroquel. Denies CP or SOB. Intake & Output 09/30/17 10/01/17 10/02/17 10/03/17 23:59 23:59 23:59 23:59 Intake Total 441 2621 861 Output Total 550 800 Balance 441 2071 61 Weight 126 lb 14.4 oz 137 lb 3.2 oz Last Vital Signs Temp Pulse Resp BP Pulse Ox 98.0 F 66 20 129/63 95 10/03/17 10:00 10/03/17 10:00 10/03/17 10:00 10/03/17 10:00 10/02/17 21:00 Active Medications Acetaminophen (Tylenol -) 650 mg PO Q6H PRN PRN Reason: PAIN Acetaminophen (Ofirmev Injection -) 1,000 mg IVPB Q8H PRN PRN Reason: PAIN Aspirin (Asa -) 81 mg PO DAILY [facility] Last Admin: 10/03/17 09:26 Dose: 81 mg Chlorhexidine Gluconate (Hibiclens For Decolonization -) 1 applic TP HS [facility] Last Admin: 10/02/17 22:14 Dose: 1 applic Cholecalciferol (Vitamin D3 -) 5,000 unit PO DAILY [facility] Last Admin: 10/03/17 09:28 Dose: 5,000 unit Enoxaparin Sodium (Lovenox -) 40 mg SQ DAILY [facility] Last Admin: 10/03/17 09:27 Dose: 40 mg Sodium Chloride (1/2 Normal Saline) 1,000 mls @ 75 mls/hr IV ASDIR [facility] Levothyroxine Sodium (Synthroid -) 50 mcg PO DAILY@0700 [facility] Last Admin: 10/03/17 06:52 Dose: 50 mcg Metoprolol Tartrate (Lopressor -) 50 mg PO BID [facility] Last Admin: 10/03/17 09:27 Dose: 50 mg Mupirocin (Bactroban Ointment (For Decolonization) -) 1 applic NS BID [facility] Stop: 10/07/17 21:59 Last Admin: 10/03/17 09:28 Dose: 1 applic Non-Formulary Medication (Brimonidine Tartrate/Timolol [Combigan 0.2%-0.5% Eye Drops]) 1 drop OD DAILY [facility] Non-Formulary Medication (Brimonidine Tartrate/Timolol [Combigan 0.2%-0.5% Eye Drops]) 5 ml OS BID [facility] Non-Formulary Medication (Eluxadoline [Viberzi]) 75 mg PO BID [facility] Ondansetron HCl (Zofran Injection) 4 mg IVPUSH Q6H PRN PRN Reason: NAUSEA Last Admin: 10/02/17 21:43 Dose: 4 mg Quetiapine Fumarate (Seroquel -) 25 mg PO HS [facility] Last Admin: 10/02/17 21:44 Dose: 25 mg PE: Gen: awake, alert, mildly confused (apparently baseline) PULM: clear anterior, no wheezes CV: RRR, no m/r/g appreciated ABD: soft, no palpable masses, + BS, loose stool EXT: w/w/p, no edema NEuro: non focal Laboratory Results - last 24 hr 10/02/17 10/02/17 10/03/17 17:00 17:00 05:40 WBC 10.2 H 10.9 H RBC 3.66 L 3.15 L Hgb 11.6 L D 10.0 L D Hct 33.4 L D 28.7 L MCV 91.1 90.9 MCH 31.8 31.7 MCHC 34.8 34.8 RDW 12.7 12.5 Plt Count 166 148 MPV 8.4 8.3 Neutrophils % 79.1 D Lymphocytes % 8.1 D Monocytes % 11.2 H Eosinophils % 1.4 Basophils % 0.2 Sodium 141 Potassium 3.7 Chloride 103 Carbon Dioxide 24 Anion Gap 14 BUN 29 H Creatinine 1.5 H Creat Clearance w eGFR 44.37 Random Glucose 105 Calcium 8.7 Phosphorus 2.6 Magnesium 1.9 Total Bilirubin 0.8 D AST 26 D ALT 25 D Alkaline Phosphatase 94 Total Protein 6.7 Albumin 3.4 10/03/17 05:40 WBC RBC Hgb Hct MCV MCH MCHC RDW Plt Count MPV Neutrophils % Lymphocytes % Monocytes % Eosinophils % Basophils % Sodium 141 Potassium 3.4 L Chloride 103 Carbon Dioxide 25 Anion Gap 13 BUN 29 H Creatinine 1.7 H Creat Clearance w eGFR 38.41 Random Glucose 115 H Calcium 8.4 L Phosphorus Magnesium Total Bilirubin 0.8 AST 49 H D ALT 25 Alkaline Phosphatase 84 Total Protein 5.9 L Albumin 3.1 L IMP: 86 M, POD #1 Percutaneous endovascular repair of abdominal aortic aneurysm / Bilateral iliac angioplasty Confusion Renal Insufficiency PLAN: Fall precautions VTE prophylaxis Oxycodone for pain control PO as tolerated IVF Follow renal function Incentive Spirometry Dr Pinedo Critical care time spent in reviewing chart, evaluating patient and formulating plan - 36 minutes.
[2017-10-03] MEDS ORDERED: PT OWN MED DRAWER 7, Y5N ONE (17:35)
[2017-10-03] MEDS: PATIENT'S OWN MEDICATION (NON-FORMULARY) (Brimonidine Tartrate/Timolol [Combigan 0.2%-0.5% OD SCH (19:18)
[2017-10-03] MEDS: ELUXADOLINE 75 MG PO SCH ×2 (19:18→21:25)
--- NOTE | 2017-10-03 20:20 | CON.GI ---
Consult Consult Specialty:: GI Referred by:: Dr Yessy Singh - History of Present Illness History of Present Illness: 86 y/o male with PMH of IBS was asked to be seen because of diarrhea. He was admitted for AAA repair. He underwent percutaneous repair by Dr Morris . He was doing well until today when he developed watery diarrhea. He was previously on clear liquids and today was on soft diet. He received antibiotic this admission. - Past Medical History FOURCHETTE SEWER: Yes: Dementia Cardio/Vascular: Yes: CAD (CABG- 2004), HTN, Hyperlipdemia, Other (infrarenal AAA 4.7cm (November 2014)). No: AFIB, Aneurysm, Aortic Insufficiency, Aortic Stenosis, CHF, Deep Vein Thrombosis, AL, Mitral Insufficiency, Mitral Stenosis, Murmur, Pulmonary Hypertension Musculoskeletal: Yes: Chronic low back pain (with radiculopathy) Rheumatology: Yes: Gout, Other (Polymyalgia Rheumatica) Endocrine: Yes: Hypothyroidism. No: Meally's Disease, Newhall's Disease, Diabetes Insipidus, Diabetes Mellitus, Hyperparathyroidism, Hyperthyroidism, Osteopenia, SIADH, Other - Past Surgical History Past Surgical History: Yes: Appendectomy, CABG ([facility]), Tonsillectomy. No: None, AAA Repair, AICD, Amputation, Arthrosocopy, AV Fistula/Graft, Bariatric Surgery , Breast Biopsy, Bypass, Carotid Endarterectomy, Cataract Removal, Cholecystectomy, Colectomy, Colonoscopy, Colostomy, Craniotomy, , Cystectomy, Hernia Repair, Hysterectomy, Ileal Conduit, Ileosotomy, Joint Replacement, Kidney Transplant, Laminectomy, Liver Transplant, Mastectomy, Nephrectomy, Oopherectomy, Orchiectomy, Permanent Pacemaker, Prostatectomy, Splenectomy, Stent, Thoracotomy, TURP, Tubal Ligation, Upper Endoscopy, Valve Replacement, Vasectomy, Vein Stripping/Ligation - Alcohol/Substance Use Hx Alcohol Use: Yes (wine rarely) - Smoking History Smoking history: Never smoked Have you smoked in the past 12 months: No Aproximately how many cigarettes per day: 0 Home Medications - Allergies Allergies/Adverse Reactions: Allergies Allergy/AdvReac Type Severity Reaction Status Date / Time No Known Allergies Allergy Unverified 02/07/12 18:12 - Home Medications Home Medications: Ambulatory Orders Metoprolol Tartrate [Lopressor -] 50 mg PO BID #0 tablet 02/09/12 Levothyroxine [Synthroid -] 50 mcg PO DAILY 12/19/14 Cholecalciferol (Vitamin D3) [Vitamin D3] 5,000 unit PO DAILY 12/20/14 Brimonidine Tartrate/Timolol [Combigan Eye Drops] 1 drop OD DAILY 10/01/17 Brimonidine Tartrate/Timolol [Combigan Eye Drops] 5 ml OS BID 10/01/17 Eluxadoline [Viberzi] 75 mg PO DAILY 10/01/17 Ibuprofen [Advil -] 200 mg PO PRN PRN 10/01/17 Physical Exam-GI Vital Signs: Vital Signs Temperature 98.6 F 10/03/17 18:00 Pulse Rate 62 10/03/17 18:00 Respiratory Rate 18 10/03/17 18:00 Blood Pressure 127/57 10/03/17 18:00 O2 Sat by Pulse Oximetry (%) 95 10/02/17 21:00 Constitutional: Yes: No Distress Eyes: Yes: Conjunctiva Clear HENT: Yes: Atraumatic Neck: Yes: Supple Cardiovascular: Yes: Regular Rate and Rhythm Respiratory: Yes: CTA Bilaterally ...Palpate: Yes: Soft. No: Firm/Rigid, Guarding, Hepatomegaly, Mass, Pulsatile Mass, Splenomegaly, Tenderness Labs: CBC, BMP 10/03/17 05:40 10/03/17 05:40 Problem List - Problems (1) Diarrhea Assessment/Plan: possibly osmotic diarrhea from increased sugar load , lactose intorance and possibly c.diff colitis R>stool wbc low fiber lactose free diet empiric treatment with Flagyl if no clinical improvement Code(s): R19.7 - DIARRHEA, UNSPECIFIED
[2017-10-03] MEDS: CHLORHEXIDINE GLUCONATE 4% CLEANSER FOR DECOLONIZATION TP SCH (21:26)
[2017-10-03] MEDS: QUEtiapine FUMARATE 25 MG TABLET (FP) PO SCH (21:26)
[2017-10-04] MEDS: LEVOTHYROXINE NA 50 MCG TABLET (FP) PO SCH (06:19)
[2017-10-04 06:28] LABS: HEMATOCRIT 28.9 % (35.4-49); HEMOGLOBIN 10.1 GM/dL (11.7-16.9); MCH 32.1 pg (25.7-33.7); MCHC 35.1 g/dl (32.0-35.9); MEAN CELL VOLUME 91.4 fl (80-96); MEAN PLT VOLUME 8.5 fl (7.5-11.1); PLATELET COUNT 132 K/MM3 (134-434); RBC 3.16 M/mm3 (4.00-5.60); RDW 12.9 % (11.9-15.9); WHITE BLOOD COUNT 10.3 K/mm3 (4.0-10.0)
[2017-10-04 07:00] LABS: ANION GAP 9 (8-16); BLOOD UREA NITROGEN 29 mg/dL (7-18); CALCIUM 8.1 mg/dL (8.5-10.1); CHLORIDE 107 mmol/L (98-107); CO2 25 mmol/L (21-32); CREATININE 2.1 mg/dL (0.7-1.3); GLUCOSE,RANDOM 81 mg/dL (74-106); PHOSPHOROUS 2.5 mg/dL (2.5-4.9); POTASSIUM 3.8 mmol/L (3.5-5.1); SODIUM 141 mmol/L (136-145)
--- NOTE | 2017-10-04 08:17 | PN ---
Physical Exam: SUBJECTIVE: No acute events overnight. Pt was pleasant overnight and slept. Currently pt still has sotelo. Denies any complaints. No reports of diarrhea last night. Pt reports continued tolerance to soft diet and is doing well. OBJECTIVE: Vital Signs Period Temp Pulse Resp BP Sys/Michel Pulse Ox Last 24 Hr 98.0 F-98.6 F 53-66 16-24 85-129/43-63 99 GENERAL: NAD, awake, pleasant, oriented x3 HEENT: No JVD, EOMI, OTTO, NC/AT, sclera anicteric LUNGS: CTA bilaterally, no wheezes, no crackles, no accessory muscle use. HEART: RRR, S1, S2 without murmur ABDOMEN: Soft, nontender, nondistended, normoactive bowel sounds, no guarding, no bruit auscultated, groin incisions C/D/I with Tegaderm and 4x4 EXTREMITIES: 2+ DP pulses, warm, well-perfused, no edema. NEUROLOGICAL: Nonfocal. Normal speech, facial symmetry, gait not observed SKIN: Warm, dry, normal turgor, no rashes or lesions noted, incisions as above Laboratory Results - last 24 hr 10/04/17 10/04/17 05:40 05:40 WBC 10.3 H RBC 3.16 L Hgb 10.1 L Hct 28.9 L MCV 91.4 MCH 32.1 MCHC 35.1 RDW 12.9 Plt Count 132 L MPV 8.5 Neutrophils % No Result Required. Lymphocytes % No Result Required. Sodium 141 Potassium 3.8 Chloride 107 Carbon Dioxide 25 Anion Gap 9 BUN 29 H Creatinine 2.1 H D Random Glucose 81 D Calcium 8.1 L Phosphorus 2.5 Magnesium 2.0 Active Medications Generic Name Dose Route Start Last Admin Trade Name Freq PRN Reason Stop Dose Admin Acetaminophen 1,000 mg 10/03/17 15:06 Ofirmev Injection - IVPB Q8H PRN Pain 7-10 Acetaminophen 650 mg 10/03/17 15:07 Tylenol - PO Q6H PRN Pain 4-6 Aspirin 81 mg 10/02/17 11:30 10/03/17 09:26 Asa - PO 81 mg DAILY [facility]STY Administration Chlorhexidine Gluconate 1 applic 10/02/17 22:00 10/03/17 21:26 Hibiclens For Decolonization - TP 1 applic HS [facility]Y Administration Cholecalciferol 5,000 unit 10/03/17 10:00 10/03/17 09:28 Vitamin D3 - PO 5,000 unit DAILY [facility] Administration Enoxaparin Sodium 40 mg 10/03/17 10:00 10/03/17 09:27 Lovenox - SQ 40 mg DAILY [facility]Y Administration Sodium Chloride 1,000 mls @ 75 mls/hr 10/03/17 11:30 10/03/17 13:00 1/2 Normal Saline IV 75 mls/hr ASDIR [facility] Administration Levothyroxine Sodium 50 mcg 10/03/17 07:00 10/04/17 06:19 Synthroid - PO 50 mcg DAILY@0700 [facility] Administration Metoprolol Tartrate 50 mg 10/02/17 22:00 10/03/17 21:26 Lopressor - PO 50 mg BID [facility]Y Administration Mupirocin 1 applic 10/02/17 22:00 10/03/17 21:25 Bactroban Ointment (For Decolonization) - NS 10/07/17 21:59 1 applic BID [facility]Y Administration Non-Formulary Medication 1 drop 10/03/17 10:00 10/03/17 19:18 Brimonidine Tartrate/Timolol [Combigan 0.2%-0.5% Eye Drops] OD Not Given DAILY [facility] Non-Formulary Medication 75 mg 10/03/17 10:00 10/03/17 21:25 Eluxadoline [Viberzi] PO 75 mg BID [facility]STY Administration Non-Formulary Medication 1 each 10/03/17 15:15 10/03/17 19:19 Patient's Own Med OU Not Given DAILY [facility]Y Ondansetron HCl 4 mg 10/02/17 21:25 10/02/17 21:43 Zofran Injection IVPUSH 4 mg Q6H PRN Administration NAUSEA Quetiapine Fumarate 25 mg 10/02/17 22:00 10/03/17 21:26 Seroquel - PO 25 mg HS [facility]RISTY Administration ASSESSMENT/PLAN: 86yo M s/p percutaneous EVAR with bilateral angioplasty of the iliac arteries Neuro: Confusion: Resolved Most likely sundowning in elderly patient Continue Seroquel 25mg PO HS --Discontinue Resp: No respiratory distress Cardiovascular: AAA s/p EVAR POD2 --Dr. Morris on case --Monitor of any signs of bleeding --Tolerating soft diet; will f/u C diff and discuss with surgery about potential of discharge --Control BP with Lopressor 50mg PO BID Renal: MALINDA --Monitor Cr --DAVE vs. Prerenal causes from decreased fluid intake --Continue to encourage intake of fluids --Discontinue sotelo today and trial voiding ID: Watery diarrhea --F/u c diff culture --No episodes since FEN: Fluids: Can bolus as needed Electrolyte abnormalities: None currently Nutrition: Soft diet (lactose free) PPX: DVT - SCDs in place Deconditioning: OOB to continue Dispo: Finalizing workup; d/c planning; can at least transfer out of ICU Case discussed with Dr. Shahida Pierson, DO - IM PGY-1 Visit type - Emergency Visit Emergency Visit: No - New Patient This patient is new to me today: No - Critical Care Critical Care patient: No
--- NOTE | 2017-10-04 08:28 | PN ---
Progress Note (short form) - Note Progress Note: POD #2 Alert. In bed with augustine restraints. Per RN notes, patient continues to have watery diarrhea (condition present prior too surgery). Dr. Salazar(GI) consult appreciated. Appears less confused today (h/o Dementia). Denies n/v/f/c, CP, palpitations, SOB, numbness/tingling to LE. Last Vital Signs Temp Pulse Resp BP Pulse Ox 98.4 F 53 L 20 93/59 99 10/04/17 06:00 10/04/17 06:00 10/04/17 06:00 10/04/17 06:00 10/03/17 20:25 CBC, BMP 10/04/17 05:40 10/04/17 05:40 Gen: alert. nad ABD: soft. nt. nd Bilat groins: dressings c/d/i. no hematoma LE: + dp pulses bilat <Elvin Garcia P - Last Filed: 10/04/17 08:29> - Note Progress Note: Cr increase 2.1. Mild dehydration from diarrhea. Recheck tomorrow. <Cong Morris - Last Filed: 10/04/17 12:23> Problem List - Problems (1) Aneurysm of infrarenal abdominal aorta Assessment/Plan: POD #3 s/p EVAR, bilat iliac angioplasty. IBS with continuous watery diarrhea. C.Diff pending. If negative can go home today with his girlfriend/caregiver if she feels comfortable. If not, arrangements must be made for custodial. Spoke with ICU resident Daren Garcia and let him know that Case management/Production Operator should be made aware. From a surgical standpoint, patient is cleared for discharge. Cont ICU management at this time Code(s): I71.4 - ABDOMINAL AORTIC ANEURYSM, WITHOUT RUPTURE <Elvin Garcia - Last Filed: 10/04/17 08:29>
[2017-10-04] MEDS ORDERED: PT OWN MED DRAWER 7, Y5N ONE (09:15)
--- NOTE | 2017-10-04 09:27 | PN ---
Progress Note, Physician History of Present Illness: pt seen/ examined in icu. chart reviewed. comfortable. happy mood today -- pt reports diarrhea better denies abd pain. pod # 3 - Current Medication List Current Medications: Active Medications Acetaminophen (Ofirmev Injection -) 1,000 mg IVPB Q8H PRN PRN Reason: Pain 7-10 Acetaminophen (Tylenol -) 650 mg PO Q6H PRN PRN Reason: Pain 4-6 Aspirin (Asa -) 81 mg PO DAILY [facility] Last Admin: 10/03/17 09:26 Dose: 81 mg Chlorhexidine Gluconate (Hibiclens For Decolonization -) 1 applic TP HS [facility] Last Admin: 10/03/17 21:26 Dose: 1 applic Cholecalciferol (Vitamin D3 -) 5,000 unit PO DAILY [facility] Last Admin: 10/03/17 09:28 Dose: 5,000 unit Enoxaparin Sodium (Lovenox -) 40 mg SQ DAILY [facility] Last Admin: 10/03/17 09:27 Dose: 40 mg Potassium Chloride 10 meq/ (Sodium Chloride) 1,005 mls @ 100 mls/hr IVPB Q10H [facility] Levothyroxine Sodium (Synthroid -) 50 mcg PO DAILY@0700 [facility] Last Admin: 10/04/17 06:19 Dose: 50 mcg Metoprolol Tartrate (Lopressor -) 50 mg PO BID [facility] Last Admin: 10/03/17 21:26 Dose: 50 mg Mupirocin (Bactroban Ointment (For Decolonization) -) 1 applic NS BID [facility] Stop: 10/07/17 21:59 Last Admin: 10/03/17 21:25 Dose: 1 applic Non-Formulary Medication (Brimonidine Tartrate/Timolol [Combigan 0.2%-0.5% Eye Drops]) 1 drop OD DAILY [facility] Last Admin: 10/03/17 19:18 Dose: Not Given Non-Formulary Medication (Eluxadoline [Viberzi]) 75 mg PO BID [facility] Last Admin: 10/03/17 21:25 Dose: 75 mg Non-Formulary Medication (Patient's Own Med) 1 each OU DAILY [facility] Last Admin: 10/03/17 19:19 Dose: Not Given Ondansetron HCl (Zofran Injection) 4 mg IVPUSH Q6H PRN PRN Reason: NAUSEA Last Admin: 10/02/17 21:43 Dose: 4 mg Quetiapine Fumarate (Seroquel -) 25 mg PO HS [facility] Last Admin: 10/03/17 21:26 Dose: 25 mg - Objective Vital Signs: Vital Signs Temperature 98.4 F 10/04/17 06:00 Pulse Rate 53 L 10/04/17 06:00 Respiratory Rate 20 10/04/17 06:00 Blood Pressure 93/59 10/04/17 06:00 O2 Sat by Pulse Oximetry (%) 99 10/03/17 20:25 Constitutional: Yes: No Distress, Calm Eyes: Yes: Conjunctiva Clear Neck: Yes: Supple Cardiovascular: Yes: Regular Rate and Rhythm Respiratory: Yes: CTA Bilaterally Gastrointestinal: Yes: Soft Edema: No Neurological: Yes: Alert Labs: CBC, BMP 10/04/17 05:40 10/04/17 05:40 Problem List - Problems (1) Acute renal insufficiency Code(s): N28.9 - DISORDER OF KIDNEY AND URETER, UNSPECIFIED (2) Aneurysm of infrarenal abdominal aorta Code(s): I71.4 - ABDOMINAL AORTIC ANEURYSM, WITHOUT RUPTURE (3) CAD (coronary artery disease) Code(s): I25.10 - ATHSCL HEART DISEASE OF [place] CORONARY ARTERY W/O ANG PCTRS Qualifiers: [place] vs. transplanted heart: [place] heart Associated angina: without angina (4) Diarrhea Code(s): R19.7 - DIARRHEA, UNSPECIFIED Assessment/Plan Fluids-- increase BP on low side gi consult noted/ appreciated diet changed monitor f/u labs monitor renal function. oob - chair physical therapy. Can transfer to floor. will follow
[2017-10-04] MEDS: MUPIROCIN 2% TOPICAL OINTMENT FOR DECOLONIZATION NS SCH (09:32)
[2017-10-04] MEDS: PATIENT'S OWN MEDICATION (NON-FORMULARY) (Brimonidine Tartrate/Timolol [Combigan 0.2%-0.5% OD SCH (09:32)
[2017-10-04] MEDS: ELUXADOLINE 75 MG PO SCH ×2 (09:32→21:29)
[2017-10-04] MEDS: METOPROLOL TARTRATE 50 MG TABLET (FP) PO SCH (09:33)
[2017-10-04] MEDS: ASPIRIN 81 MG CHEWABLE TABLETS PO SCH (09:33)
[2017-10-04] MEDS: ENOXAPARIN NA (PORCINE) 40 MG/0.4 ML DISP.SYRIN SQ SCH (09:33)
[2017-10-04 09:55] LABS: ANISOCYTOSIS 0; MACROCYTOSIS 0; OVALOCYTE 1+; PLATELET ESTIMATE DECREASED
[2017-10-04] MEDS ORDERED: POTASSIUM CHLORIDE 10 MEQ in SODIUM CHLORIDE 1,000 ML IVPB SCH (10:30)
--- NOTE | 2017-10-04 11:46 | PN ---
Teaching Attending Note Name of Resident: Sathish Pierson ATTENDING PHYSICIAN STATEMENT I saw and evaluated the patient. I reviewed the resident's note and discussed the case with the resident. I agree with the resident's findings and plan as documented. SUBJECTIVE: Patient seen and examined in the ICU. Awake and alert. Feels well. Denies CP or SOB. Intake & Output 10/01/17 10/02/17 10/03/17 10/04/17 23:59 23:59 23:59 23:59 Intake Total 441 2621 2161 625 Output Total 550 1400 400 Balance 441 2071 761 225 Weight 126 lb 14.4 oz 137 lb 3.2 oz 127 lb 5 oz Last Vital Signs Temp Pulse Resp BP Pulse Ox 98 F 74 18 116/49 99 10/04/17 10:00 10/04/17 10:00 10/04/17 10:00 10/04/17 10:00 10/04/17 09:00 Active Medications Acetaminophen (Ofirmev Injection -) 1,000 mg IVPB Q8H PRN PRN Reason: Pain 7-10 Acetaminophen (Tylenol -) 650 mg PO Q6H PRN PRN Reason: Pain 4-6 Aspirin (Asa -) 81 mg PO DAILY [facility] Last Admin: 10/04/17 09:33 Dose: 81 mg Chlorhexidine Gluconate (Hibiclens For Decolonization -) 1 applic TP HS [facility] Last Admin: 10/03/17 21:26 Dose: 1 applic Cholecalciferol (Vitamin D3 -) 5,000 unit PO DAILY [facility] Last Admin: 10/03/17 09:28 Dose: 5,000 unit Enoxaparin Sodium (Lovenox -) 40 mg SQ DAILY [facility] Last Admin: 10/04/17 09:33 Dose: 40 mg Potassium Chloride 10 meq/ (Sodium Chloride) 1,005 mls @ 100 mls/hr IVPB Q10H [facility] Last Admin: 10/04/17 11:21 Dose: 100 mls/hr Levothyroxine Sodium (Synthroid -) 50 mcg PO DAILY@0700 [facility] Last Admin: 10/04/17 06:19 Dose: 50 mcg Metoprolol Tartrate (Lopressor -) 50 mg PO BID [facility] Last Admin: 10/04/17 09:33 Dose: 50 mg Mupirocin (Bactroban Ointment (For Decolonization) -) 1 applic NS BID [facility] Stop: 10/07/17 21:59 Last Admin: 10/04/17 09:32 Dose: 1 applic Non-Formulary Medication (Brimonidine Tartrate/Timolol [Combigan 0.2%-0.5% Eye Drops]) 1 drop OD DAILY [facility] Last Admin: 10/04/17 09:32 Dose: 1 drop Non-Formulary Medication (Eluxadoline [Viberzi]) 75 mg PO BID [facility] Last Admin: 10/04/17 09:32 Dose: 75 mg Non-Formulary Medication (Patient's Own Med) 1 each OU DAILY [facility] Last Admin: 10/04/17 09:32 Dose: 1 each Ondansetron HCl (Zofran Injection) 4 mg IVPUSH Q6H PRN PRN Reason: NAUSEA Last Admin: 10/02/17 21:43 Dose: 4 mg Quetiapine Fumarate (Seroquel -) 25 mg PO HS [facility] Last Admin: 10/03/17 21:26 Dose: 25 mg PE: Gen: awake, alert, NAD PULM: clear anterior, no wheezes CV: RRR, no m/r/g appreciated ABD: soft, no palpable masses, + BS EXT: w/w/p, no edema NEuro: non focal Laboratory Results - last 24 hr 10/04/17 10/04/17 10/04/17 05:40 05:40 06:00 WBC 10.3 H RBC 3.16 L Hgb 10.1 L Hct 28.9 L MCV 91.4 MCH 32.1 MCHC 35.1 RDW 12.9 Plt Count 132 L MPV 8.5 Neutrophils % No Result Required. Lymphocytes % No Result Required. Sodium 141 Potassium 3.8 Chloride 107 Carbon Dioxide 25 Anion Gap 9 BUN 29 H Creatinine 2.1 H D Random Glucose 81 D Calcium 8.1 L Phosphorus 2.5 Magnesium 2.0 Stool Occult Blood Negative IMP: 86 M, POD #2 Percutaneous endovascular repair of abdominal aortic aneurysm / Bilateral iliac angioplasty Confusion Renal Insufficiency (?) Component of DAVE PLAN: Fall precautions VTE prophylaxis Oxycodone for pain control PO as tolerated IVF Follow renal function Incentive Spirometry Floor Dr Pinedo
[2017-10-04] MEDS: CHOLECALCIFEROL (VITAMIN D3) 1,000 UNIT TABLET (FP) PO SCH (12:11)
--- NOTE | 2017-10-04 15:34 | PN ---
Progress Note, Physician Chief Complaint: diarrhea History of Present Illness: Received patient in chair s/p AAA repair, doing well. He reported one episode of diarrhea today, he denies abdominal pain, nausea and vomiting tolerating soft diet, however patient's nurse Marylou reported that there was no evidence of diarrhea when changing patient's diaper today. negative C-Diff. - Current Medication List Current Medications: Active Medications Acetaminophen (Ofirmev Injection -) 1,000 mg IVPB Q8H PRN PRN Reason: Pain 7-10 Acetaminophen (Tylenol -) 650 mg PO Q6H PRN PRN Reason: Pain 4-6 Aspirin (Asa -) 81 mg PO DAILY [facility] Last Admin: 10/04/17 09:33 Dose: 81 mg Chlorhexidine Gluconate (Hibiclens For Decolonization -) 1 applic TP HS [facility] Last Admin: 10/03/17 21:26 Dose: 1 applic Cholecalciferol (Vitamin D3 -) 5,000 unit PO DAILY [facility] Last Admin: 10/04/17 12:11 Dose: 5,000 unit Enoxaparin Sodium (Lovenox -) 40 mg SQ DAILY [facility] Last Admin: 10/04/17 09:33 Dose: 40 mg Potassium Chloride 10 meq/ (Sodium Chloride) 1,005 mls @ 100 mls/hr IVPB Q10H [facility] Last Admin: 10/04/17 11:21 Dose: 100 mls/hr Levothyroxine Sodium (Synthroid -) 50 mcg PO DAILY@0700 [facility] Last Admin: 10/04/17 06:19 Dose: 50 mcg Metoprolol Tartrate (Lopressor -) 50 mg PO BID [facility] Last Admin: 10/04/17 09:33 Dose: 50 mg Mupirocin (Bactroban Ointment (For Decolonization) -) 1 applic NS BID [facility] Stop: 10/07/17 21:59 Last Admin: 10/04/17 09:32 Dose: 1 applic Non-Formulary Medication (Brimonidine Tartrate/Timolol [Combigan 0.2%-0.5% Eye Drops]) 1 drop OD DAILY [facility] Last Admin: 10/04/17 09:32 Dose: 1 drop Non-Formulary Medication (Eluxadoline [Viberzi]) 75 mg PO BID [facility] Last Admin: 10/04/17 09:32 Dose: 75 mg Non-Formulary Medication (Patient's Own Med) 1 each OU DAILY [facility] Last Admin: 10/04/17 09:32 Dose: 1 each Ondansetron HCl (Zofran Injection) 4 mg IVPUSH Q6H PRN PRN Reason: NAUSEA Last Admin: 10/02/17 21:43 Dose: 4 mg Quetiapine Fumarate (Seroquel -) 25 mg PO HS [facility] Last Admin: 10/03/17 21:26 Dose: 25 mg - Objective Vital Signs: Vital Signs Temperature 98 F 10/04/17 10:00 Pulse Rate 63 10/04/17 12:00 Respiratory Rate 19 10/04/17 12:00 Blood Pressure 104/49 10/04/17 12:00 O2 Sat by Pulse Oximetry (%) 99 10/04/17 09:00 Constitutional: Yes: Well Nourished, No Distress, Calm Eyes: Yes: Conjunctiva Clear HENT: Yes: Atraumatic Cardiovascular: Yes: Regular Rate and Rhythm Respiratory: Yes: Regular, CTA Bilaterally Gastrointestinal: Yes: Normal Bowel Sounds, Soft. No: Distention, Palpable Mass , Rectal Bleeding, Tenderness, Epigastrium, Tenderness, Rebound, Vomiting Labs: CBC, BMP 10/04/17 05:40 10/04/17 05:40 Problem List - Problems (1) Diarrhea Assessment/Plan: recommendations: 1) continue Lactose free diet 2) colonoscopy outpatient Code(s): R19.7 - DIARRHEA, UNSPECIFIED
[2017-10-04] MEDS ORDERED: ACETAMINOPHEN 1000 MG/100 ML VIAL (NON FORMULARY) IVPB PRN (19:15)
[2017-10-04] MEDS ORDERED: ACETAMINOPHEN 325 MG TABLET (FP) PO PRN (19:15)
[2017-10-04] MEDS: METOPROLOL TARTRATE 25 MG TABLET (FP) PO SCH (21:29)
[2017-10-04] MEDS ORDERED: METOPROLOL TARTRATE 50 MG TABLET (FP) PO SCH (22:00)
[2017-10-04] MEDS ORDERED: QUEtiapine FUMARATE 25 MG TABLET (FP) PO SCH (22:00)
[2017-10-05 06:27] LABS: BASO % 0.3 % (0-2.0); EOS % 8.4 % (0-4.5); HEMATOCRIT 25.1 % (35.4-49); HEMOGLOBIN 8.8 GM/dL (11.7-16.9); LYMPH % 19.5 % (8-40); MCH 32.2 pg (25.7-33.7); MCHC 34.9 g/dl (32.0-35.9); MEAN CELL VOLUME 92.1 fl (80-96); MEAN PLT VOLUME 8.5 fl (7.5-11.1); MONO % 13.3 % (3.8-10.2); NEUT % 58.5 % (42.8-82.8); PLATELET COUNT 131 K/MM3 (134-434); RBC 2.73 M/mm3 (4.00-5.60); WHITE BLOOD COUNT 6.3 K/mm3 (4.0-10.0)
[2017-10-05] MEDS: LEVOTHYROXINE NA 50 MCG TABLET (FP) PO SCH (06:27)
[2017-10-05 06:40] LABS: ALBUMIN 2.5 g/dl (3.4-5.0); ANION GAP 10 (8-16); BLOOD UREA NITROGEN 34 mg/dL (7-18); CALCIUM 7.7 mg/dL (8.5-10.1); CHLORIDE 108 mmol/L (98-107); CO2 23 mmol/L (21-32); GLUCOSE,RANDOM 79 mg/dL (74-106); POTASSIUM 3.5 mmol/L (3.5-5.1); SODIUM 141 mmol/L (136-145)
[2017-10-05 06:44] LABS: ALK PHOS 60 U/L (45-117); BILIRUBIN,TOTAL 0.5 mg/dL (0.2-1.0); CREATININE 1.8 mg/dL (0.7-1.3); SGOT/AST 30 U/L (15-37); SGPT/ALT 15 U/L (12-78)
[2017-10-05] MEDS ORDERED: PT OWN MED DRAWER 7, Y5N ONE ×4 (08:56→16:28)
--- NOTE | 2017-10-05 09:44 | PN ---
Progress Note (short form) - Note Progress Note: Seen and examined in ICU Denies: CP/SOB/N/V/abd pain awaiting transfer to floor Penny placed for failure to void Current Medications Acetaminophen (Tylenol -) 650 mg PO Q6H PRN PRN Reason: Pain 4-6 Acetaminophen (Ofirmev Injection -) 1,000 mg IVPB Q8H PRN PRN Reason: Pain 7-10 Aspirin (Asa -) 81 mg PO DAILY [facility] Cholecalciferol (Vitamin D3 -) 5,000 unit PO DAILY [facility] Enoxaparin Sodium (Lovenox -) 30 mg SQ DAILY [facility] Levothyroxine Sodium (Synthroid -) 50 mcg PO DAILY@0700 [facility] Last Admin: 10/05/17 06:27 Dose: 50 mcg Metoprolol Tartrate (Lopressor -) 25 mg PO BID [facility] Last Admin: 10/04/17 21:29 Dose: Not Given Non-Formulary Medication (Brimonidine Tartrate/Timolol [Combigan 0.2%-0.5% Eye Drops]) 1 drop OD DAILY [facility] Non-Formulary Medication (Eluxadoline [Viberzi]) 75 mg PO BID [facility] Last Admin: 10/04/17 21:29 Dose: 75 mg Non-Formulary Medication (Patient's Own Med) 1 each OU DAILY [facility] Quetiapine Fumarate (Seroquel -) 25 mg PO HS [facility] Last Admin: 10/04/17 21:29 Dose: 25 mg Vital Signs Period Temp Pulse Resp BP Sys/Michel Pulse Ox Last 24 Hr 98 F-99.2 F 53-74 17-22 101-144/48-65 99-100 Intake & Output 10/02/17 10/03/17 10/04/17 10/05/17 23:59 23:59 23:59 23:59 Intake Total 2621 2161 2165 700 Output Total 550 8500 655 2502 Balance 2071 761 1465 -500 Weight 62.233 kg 57.748 kg 59.449 kg General: awake, alert and cooperative Neuro: CN grossly intact Pulm: CTA CV: RRR Abd: SNTND, groin dressing c/d/i Ext: WWP no edema CBCD WBC 6.3 K/mm3 (4.0-10.0) D 10/05/17 06:00 RBC 2.73 M/mm3 (4.00-5.60) L 10/05/17 06:00 Hgb 8.8 GM/dL (11.7-16.9) L D 10/05/17 06:00 Hct 25.1 % (35.4-49) L 10/05/17 06:00 MCV 92.1 fl (80-96) 10/05/17 06:00 MCHC 34.9 g/dl (32.0-35.9) 10/05/17 06:00 RDW 13.0 % (11.9-15.9) 10/05/17 06:00 Plt Count 131 K/MM3 (134-434) L 10/05/17 06:00 MPV 8.5 fl (7.5-11.1) 10/05/17 06:00 CMP Sodium 141 mmol/L (136-145) 10/05/17 06:00 Potassium 3.5 mmol/L (3.5-5.1) 10/05/17 06:00 Chloride 108 mmol/L (98-107) H 10/05/17 06:00 Carbon Dioxide 23 mmol/L (21-32) 10/05/17 06:00 Anion Gap 10 (8-16) 10/05/17 06:00 BUN 34 mg/dL (7-18) H 10/05/17 06:00 Creatinine 1.8 mg/dL (0.7-1.3) H 10/05/17 06:00 Creat Clearance w eGFR 35.95 (>60) 10/05/17 06:00 Calcium 7.7 mg/dL (8.5-10.1) L 10/05/17 06:00 Total Bilirubin 0.5 mg/dL (0.2-1.0) D 10/05/17 06:00 AST 30 U/L (15-37) D 10/05/17 06:00 ALT 15 U/L (12-78) D 10/05/17 06:00 Alkaline Phosphatase 60 U/L (45-117) D 10/05/17 06:00 Total Protein 5.0 g/dl (6.4-8.2) L 10/05/17 06:00 Albumin 2.5 g/dl (3.4-5.0) L 10/05/17 06:00 IMP: 86 M, POD #3 Percutaneous endovascular repair of abdominal aortic aneurysm / Bilateral iliac angioplasty Resolving Confusion Renal Insufficiency (?) Component of DAVE PLAN: Hgb drown trending, no sign of bleeding will recheck in PM Fall precautions VTE prophylaxis Oxycodone for pain control PO as tolerated IVF Follow renal function Incentive Spirometry Floor
[2017-10-05] MEDS ORDERED: ENOXAPARIN NA (PORCINE) 40 MG/0.4 ML DISP.SYRIN SQ SCH (10:00)
[2017-10-05] MEDS: ASPIRIN 81 MG CHEWABLE TABLETS PO SCH (10:11)
[2017-10-05] MEDS: METOPROLOL TARTRATE 25 MG TABLET (FP) PO SCH ×2 (10:11→23:09)
[2017-10-05] MEDS: ELUXADOLINE 75 MG PO SCH ×2 (10:14→23:09)
[2017-10-05] MEDS: PATIENT'S OWN MEDICATION (NON-FORMULARY) (Brimonidine Tartrate/Timolol [Combigan 0.2%-0.5% OD SCH (10:15)
[2017-10-05] MEDS: ENOXAPARIN NA (PORCINE) 30 MG/0.3 ML DISP.SYRIN SQ SCH (10:18)
[2017-10-05] MEDS: CHOLECALCIFEROL (VITAMIN D3) 1,000 UNIT TABLET (FP) PO SCH (10:19)
--- NOTE | 2017-10-05 11:03 | PN ---
Progress Note, Physician Chief Complaint: had urinary retention last night -- sotelo replaced again no complaints - Current Medication List Current Medications: Active Medications Acetaminophen (Tylenol -) 650 mg PO Q6H PRN PRN Reason: Pain 4-6 Acetaminophen (Ofirmev Injection -) 1,000 mg IVPB Q8H PRN PRN Reason: Pain 7-10 Aspirin (Asa -) 81 mg PO DAILY [facility] Last Admin: 10/05/17 10:11 Dose: 81 mg Cholecalciferol (Vitamin D3 -) 5,000 unit PO DAILY [facility] Last Admin: 10/05/17 10:19 Dose: 5,000 unit Enoxaparin Sodium (Lovenox -) 30 mg SQ DAILY [facility] Last Admin: 10/05/17 10:18 Dose: 30 mg Levothyroxine Sodium (Synthroid -) 50 mcg PO DAILY@0700 [facility] Last Admin: 10/05/17 06:27 Dose: 50 mcg Metoprolol Tartrate (Lopressor -) 25 mg PO BID [facility] Last Admin: 10/05/17 10:11 Dose: 25 mg Non-Formulary Medication (Brimonidine Tartrate/Timolol [Combigan 0.2%-0.5% Eye Drops]) 1 drop OD DAILY [facility] Last Admin: 10/05/17 10:15 Dose: 1 drop Non-Formulary Medication (Eluxadoline [Viberzi]) 75 mg PO BID [facility] Last Admin: 10/05/17 10:14 Dose: 75 mg Non-Formulary Medication (Patient's Own Med) 1 each OU DAILY [facility] Last Admin: 10/05/17 10:15 Dose: 1 each Quetiapine Fumarate (Seroquel -) 25 mg PO HS [facility] Last Admin: 10/04/17 21:29 Dose: 25 mg - Objective Vital Signs: Vital Signs Temperature 98.3 F 10/05/17 10:00 Pulse Rate 80 10/05/17 10:00 Respiratory Rate 17 10/05/17 10:00 Blood Pressure 136/62 10/05/17 10:00 O2 Sat by Pulse Oximetry (%) 100 10/05/17 08:00 Constitutional: Yes: No Distress Cardiovascular: Yes: Regular Rate and Rhythm Respiratory: Yes: CTA Bilaterally Gastrointestinal: Yes: Normal Bowel Sounds, Soft. No: Abdomen, Obese, Tenderness Edema: No Labs: CBC, BMP 10/05/17 06:00 10/05/17 06:00 Problem List - Problems (1) Aneurysm of infrarenal abdominal aorta Code(s): I71.4 - ABDOMINAL AORTIC ANEURYSM, WITHOUT RUPTURE (2) CAD (coronary artery disease) Code(s): I25.10 - ATHSCL HEART DISEASE OF [place] CORONARY ARTERY W/O ANG PCTRS Qualifiers: [place] vs. transplanted heart: [place] heart Associated angina: without angina (3) HTN (hypertension) Code(s): I10 - ESSENTIAL (PRIMARY) HYPERTENSION (4) Hypothyroid Code(s): E03.9 - HYPOTHYROIDISM, UNSPECIFIED Qualifiers: Hypothyroidism type: other Qualified Code(s): E03.8 - Other specified hypothyroidism (5) Diarrhea Code(s): R19.7 - DIARRHEA, UNSPECIFIED (6) Metabolic encephalopathy Code(s): G93.41 - METABOLIC ENCEPHALOPATHY Assessment/Plan PLAN failed voiding trial As per nurse, there was resistance when placing a sotelo-- start Flomax-- possible BPH baseline mental status now-- pt is more alert and oriented-- dc Seroquel-- was started here when pt became agitated post op Lovenox for DVT prophylaxis renal function better OOB
--- NOTE | 2017-10-05 12:22 | PN ---
Progress Note (short form) - Note Progress Note: VSS Had catheter placed due to inability to void Groin wounds clean and dry Mental status improving Cr at baseline 1.8 Stable OK for discharge or transfer. If catheter can be removed it would be preferable.
[2017-10-05] MEDS: TAMSULOSIN HCL 0.4 MG CAP.ER.24H (FP) PO SCH (14:00)
[2017-10-05 15:42] LABS: HEMATOCRIT 26.2 % (35.4-49); MCH 31.5 pg (25.7-33.7); MCHC 34.4 g/dl (32.0-35.9); MEAN CELL VOLUME 91.7 fl (80-96); MEAN PLT VOLUME 7.9 fl (7.5-11.1); PLATELET COUNT 133 K/MM3 (134-434); RBC 2.85 M/mm3 (4.00-5.60); RDW 12.9 % (11.9-15.9); WHITE BLOOD COUNT 6.8 K/mm3 (4.0-10.0)
[2017-10-05] MEDS: PATIENT'S OWN MEDICATION (NON-FORMULARY) (Brimonidine Tartrate/Timolol [Combigan 0.2%-0.5% OS SCH ×2 (17:47)
[2017-10-06] MEDS: LEVOTHYROXINE NA 50 MCG TABLET (FP) PO SCH (06:17)
[2017-10-06 08:23] LABS: HEMOGLOBIN 9.3 GM/dL (11.7-16.9); MCH 31.7 pg (25.7-33.7); MCHC 34.6 g/dl (32.0-35.9); MEAN CELL VOLUME 91.4 fl (80-96); MEAN PLT VOLUME 7.9 fl (7.5-11.1); PLATELET COUNT 154 K/MM3 (134-434); RBC 2.95 M/mm3 (4.00-5.60); WHITE BLOOD COUNT 6.2 K/mm3 (4.0-10.0)
[2017-10-06 08:30] LABS: ANION GAP 10 (8-16); BLOOD UREA NITROGEN 29 mg/dL (7-18); CHLORIDE 106 mmol/L (98-107); CO2 24 mmol/L (21-32); CREATININE 1.4 mg/dL (0.7-1.3); GLUCOSE,RANDOM 83 mg/dL (74-106); PHOSPHOROUS 1.9 mg/dL (2.5-4.9); POTASSIUM 3.3 mmol/L (3.5-5.1); SODIUM 140 mmol/L (136-145)
[2017-10-06] MEDS ORDERED: POTASSIUM CHLORIDE TABS 20 MEQ TABLET.ER (FP) PO ONE (08:41)
[2017-10-06] MEDS: TAMSULOSIN HCL 0.4 MG CAP.ER.24H (FP) PO SCH (08:56)
[2017-10-06] MEDS: METOPROLOL TARTRATE 25 MG TABLET (FP) PO SCH ×2 (09:50→22:13)
[2017-10-06] MEDS: ASPIRIN 81 MG CHEWABLE TABLETS PO SCH (09:50)
[2017-10-06] MEDS: CHOLECALCIFEROL (VITAMIN D3) 1,000 UNIT TABLET (FP) PO SCH (09:50)
[2017-10-06] MEDS: ENOXAPARIN NA (PORCINE) 30 MG/0.3 ML DISP.SYRIN SQ SCH (09:50)
[2017-10-06] MEDS: ELUXADOLINE 75 MG PO SCH ×2 (09:51→22:13)
[2017-10-06] MEDS: PATIENT'S OWN MEDICATION (NON-FORMULARY) (Brimonidine Tartrate/Timolol [Combigan 0.2%-0.5% OD SCH (09:52)
--- NOTE | 2017-10-06 12:05 | PN ---
Progress Note, Physician Chief Complaint: no complaints wants to remove sotelo - Current Medication List Current Medications: Active Medications Acetaminophen (Tylenol -) 650 mg PO Q6H PRN PRN Reason: Pain 4-6 Acetaminophen (Ofirmev Injection -) 1,000 mg IVPB Q8H PRN PRN Reason: Pain 7-10 Aspirin (Asa -) 81 mg PO DAILY [facility] Last Admin: 10/06/17 09:50 Dose: 81 mg Cholecalciferol (Vitamin D3 -) 5,000 unit PO DAILY [facility] Last Admin: 10/06/17 09:50 Dose: 5,000 unit Enoxaparin Sodium (Lovenox -) 30 mg SQ DAILY [facility] Last Admin: 10/06/17 09:50 Dose: 30 mg Levothyroxine Sodium (Synthroid -) 50 mcg PO DAILY@0700 [facility] Last Admin: 10/06/17 06:17 Dose: 50 mcg Metoprolol Tartrate (Lopressor -) 25 mg PO BID [facility] Last Admin: 10/06/17 09:50 Dose: 25 mg Non-Formulary Medication (Brimonidine Tartrate/Timolol [Combigan 0.2%-0.5% Eye Drops]) 1 drop OD DAILY [facility] Last Admin: 10/06/17 09:52 Dose: 1 drop Non-Formulary Medication (Eluxadoline [Viberzi]) 75 mg PO BID [facility] Last Admin: 10/06/17 09:51 Dose: 75 mg Non-Formulary Medication (Patient's Own Med) 1 each OU DAILY [facility] Last Admin: 10/06/17 09:51 Dose: 1 each Tamsulosin HCl (Flomax -) 0.4 mg PO DAILY@0830 [facility] Last Admin: 10/06/17 08:56 Dose: 0.4 mg - Objective Vital Signs: Vital Signs Temperature 99.1 F 10/06/17 11:01 Pulse Rate 67 10/06/17 11:01 Respiratory Rate 20 10/06/17 11:01 Blood Pressure 141/72 10/06/17 11:01 O2 Sat by Pulse Oximetry (%) 100 10/05/17 21:00 Constitutional: Yes: No Distress Cardiovascular: Yes: Regular Rate and Rhythm Respiratory: Yes: CTA Bilaterally Gastrointestinal: Yes: Normal Bowel Sounds, Soft. No: Tenderness Edema: No Labs: CBC, BMP 10/06/17 06:48 10/06/17 06:48 Problem List - Problems (1) Aneurysm of infrarenal abdominal aorta Code(s): I71.4 - ABDOMINAL AORTIC ANEURYSM, WITHOUT RUPTURE (2) CAD (coronary artery disease) Code(s): I25.10 - ATHSCL HEART DISEASE OF [place] CORONARY ARTERY W/O ANG PCTRS Qualifiers: [place] vs. transplanted heart: [place] heart Associated angina: without angina (3) HTN (hypertension) Code(s): I10 - ESSENTIAL (PRIMARY) HYPERTENSION (4) Hypothyroid Code(s): E03.9 - HYPOTHYROIDISM, UNSPECIFIED Qualifiers: Hypothyroidism type: other Qualified Code(s): E03.8 - Other specified hypothyroidism (5) Diarrhea Code(s): R19.7 - DIARRHEA, UNSPECIFIED (6) Metabolic encephalopathy Code(s): G93.41 - METABOLIC ENCEPHALOPATHY Assessment/Plan PLAN failed voiding trial As per nurse, there was resistance when placing a sotelo-- started Flomax-- possible BPH baseline mental status now-- pt is more alert and oriented-- dc Seroquel-- was started here when pt became agitated post op Lovenox for DVT prophylaxis renal function better OOB replace potassium OOB daily will remove sotelo in AM
[2017-10-07] MEDS: LEVOTHYROXINE NA 50 MCG TABLET (FP) PO SCH (06:20)
[2017-10-07 08:24] LABS: ANION GAP 11 (8-16); BLOOD UREA NITROGEN 25 mg/dL (7-18); CHLORIDE 105 mmol/L (98-107); CO2 25 mmol/L (21-32); CREATININE 1.4 mg/dL (0.7-1.3); GLUCOSE,RANDOM 82 mg/dL (74-106); POTASSIUM 3.8 mmol/L (3.5-5.1); SODIUM 141 mmol/L (136-145)
--- NOTE | 2017-10-07 08:34 | PN ---
Progress Note (short form) - Note Progress Note: No c/o VSS Abd soft Groins healing well, no swelling Feet warm Stable Discharge as per Medicine I will see in my office in 1 week.
--- NOTE | 2017-10-07 10:28 | DS ---
Physical Examination Vital Signs: Vital Signs Temperature 99 F 10/07/17 06:43 Pulse Rate 56 L 10/07/17 06:43 Respiratory Rate 20 10/07/17 06:43 Blood Pressure 130/62 10/07/17 06:43 O2 Sat by Pulse Oximetry (%) 99 10/06/17 21:00 Findings/Remarks: patient seen and examined. Comfortable No complaints Feels well. All follow-ups noted. Constitutional: Yes: No Distress Eyes: Yes: Conjunctiva Clear Neck: Yes: Supple Cardiovascular: Yes: Regular Rate and Rhythm Respiratory: Yes: CTA Bilaterally Gastrointestinal: Yes: Soft Edema: No Neurological: Yes: Alert Psychiatric: Yes: Alert Labs: CBC, BMP 10/06/17 06:48 10/07/17 07:35 Discharge Summary Reason For Visit: ABDOMINAL AORTIC ANEURYSM Current Active Problems Acute renal insufficiency (Acute) Aneurysm of infrarenal abdominal aorta (Acute) CAD (coronary artery disease) (Acute) Diarrhea (Acute) Diarrhea (Acute) HTN (hypertension) (Acute) Hypothyroid (Acute) Metabolic encephalopathy (Acute) Hospital Course: patient 86 year-old male--- with past medical history as mentioned--- underwent , S/P Percutaneous endovascular repair of abdominal aortic aneurysm / Bilateral iliac angioplasty. hospital course complicated by confusion/and acute renal insufficiency Now much better Renal function back to baseline. the patient now cleared by his--- vascular surgeon for discharge Medications reconciled. Will discharge today Penny removed today for voiding trial If patient passes urine--- Will discharge today patient also started on Flomax Plan discussed in detail with nursing staff. Patient also instructed to follow up with his PMD next week as well as surgeon as advised. Medications prescribed as needed. Condition: Stable - Instructions Diet, Activity, Other Instructions: Dr. Morris's Discharge Instructions Post Operative Instructions Physical activity Resume your normal everyday activity as tolerated no heavy lifting or exercise until seen by your surgeon. You may walk unlimited amounts of and climb stairs. You may resume driving the car when you feel safe and comfortable behind the wheel. Wound care If you have a bandage, leave it on, and keep dry for 48 - 72 hours. After that time discard the outer bandage. Diet There are no dietary restrictions. Eat healthy, high-fiber foods. Drink 6 to 8 glasses of liquid each day. This will assist in keeping your bowels are regular. Pain management You may take Tylenol or acetaminophen or Ibuprofen (for example, Motrin, Advil etc.) Any pain prescription medication ordered should be taken as prescribed for moderate to severe pain. Call Dr. Morris for any of the following: Severe pain not relieved by medication Fever of 101 or higher Excessive bleeding or drainage on dressing Inability to urinate Call the office for a post operative appointment in 7 - 10 days. Referrals: Beto Alonso MD [Staff Physician] - Michael Lezn MD [Staff Physician] - Disposition: HOME - Home Medications Comprehensive Discharge Medication List: Ambulatory Orders Levothyroxine [Synthroid -] 50 mcg PO DAILY 12/19/14 Cholecalciferol (Vitamin D3) [Vitamin D3] 5,000 unit PO DAILY 12/20/14 Brimonidine Tartrate/Timolol [Combigan 0.2%-0.5% Eye Drops] 1 drop OD DAILY 01/13 Brimonidine Tartrate/Timolol [Combigan 0.2%-0.5% Eye Drops] 5 ml OS BID Eluxadoline [Viberzi] 75 mg PO DAILY 10/01/17 Acetaminophen [Tylenol .Regular Strength -] 650 mg PO Q6H PRN tablet 10/07/17 Aspirin [ASA -] 81 mg PO DAILY tab.chew 10/07/17 Metoprolol Tartrate [Lopressor -] 25 mg PO BID #60 tablet 10/07/17 Tamsulosin HCl [Flomax -] 0.4 mg PO DAILY@0830 #30 cap.er.24h 10/07/17
[2017-10-07] MEDS: TAMSULOSIN HCL 0.4 MG CAP.ER.24H (FP) PO SCH (10:53)
[2017-10-07] MEDS: ASPIRIN 81 MG CHEWABLE TABLETS PO SCH (10:53)
[2017-10-07] MEDS: PATIENT'S OWN MEDICATION (NON-FORMULARY) (Brimonidine Tartrate/Timolol [Combigan 0.2%-0.5% OD SCH (10:54)
[2017-10-07] MEDS: ENOXAPARIN NA (PORCINE) 30 MG/0.3 ML DISP.SYRIN SQ SCH (10:55)
[2017-10-07] MEDS: METOPROLOL TARTRATE 25 MG TABLET (FP) PO SCH (10:55)
[2017-10-07] MEDS: ELUXADOLINE 75 MG PO SCH (10:55)
--- NOTE | 2017-10-07 10:55 | PN ---
Progress Note (short form) - Note Progress Note: Feels well. No acute events overnight. Denies CP or SOB. Intake & Output 10/04/17 10/05/17 10/06/17 10/07/17 22:59 22:59 23:59 23:59 Intake Total Output Total 600 Balance -600 Weight 110 lb 6 oz Last Vital Signs Temp Pulse Resp BP Pulse Ox 99 F 56 L 20 130/62 99 10/07/17 06:43 10/07/17 06:43 10/07/17 06:43 10/07/17 06:43 10/06/17 21:00 Active Medications Acetaminophen (Tylenol -) 650 mg PO Q6H PRN PRN Reason: Pain 4-6 Acetaminophen (Ofirmev Injection -) 1,000 mg IVPB Q8H PRN PRN Reason: Pain 7-10 Aspirin (Asa -) 81 mg PO DAILY [facility] Last Admin: 10/06/17 09:50 Dose: 81 mg Cholecalciferol (Vitamin D3 -) 5,000 unit PO DAILY [facility] Last Admin: 10/06/17 09:50 Dose: 5,000 unit Enoxaparin Sodium (Lovenox -) 30 mg SQ DAILY [facility] Last Admin: 10/06/17 09:50 Dose: 30 mg Levothyroxine Sodium (Synthroid -) 50 mcg PO DAILY@0700 [facility] Last Admin: 10/07/17 06:20 Dose: 50 mcg Metoprolol Tartrate (Lopressor -) 25 mg PO BID [facility] Last Admin: 10/06/17 22:13 Dose: 25 mg Non-Formulary Medication (Brimonidine Tartrate/Timolol [Combigan 0.2%-0.5% Eye Drops]) 1 drop OD DAILY [facility] Last Admin: 10/06/17 09:52 Dose: 1 drop Non-Formulary Medication (Eluxadoline [Viberzi]) 75 mg PO BID [facility] Last Admin: 10/06/17 22:13 Dose: 75 mg Non-Formulary Medication (Patient's Own Med) 1 each OU DAILY [facility] Last Admin: 10/06/17 09:51 Dose: 1 each Tamsulosin HCl (Flomax -) 0.4 mg PO DAILY@0830 [facility] Last Admin: 10/06/17 08:56 Dose: 0.4 mg PE: Gen: awake, alert, NAD PULM: clear, no wheezes CV: RRR ABD: soft, no palpable masses, + BS EXT: w/w/p, no edema Neuro: non focal Laboratory Results - last 24 hr 10/07/17 07:35 Sodium 141 Potassium 3.8 Chloride 105 Carbon Dioxide 25 Anion Gap 11 BUN 25 H Creatinine 1.4 H Random Glucose 82 Calcium 8.0 L IMP: 86 M, S/P Percutaneous endovascular repair of abdominal aortic aneurysm / Bilateral iliac angioplasty Resolved confusion Renal Insufficiency (?) Component of DAVE PLAN: Pain control PO as tolerated Incentive Spirometry D/C planning Dr Pinedo
[2017-10-07] MEDS: CHOLECALCIFEROL (VITAMIN D3) 1,000 UNIT TABLET (FP) PO SCH (10:56)
--- NOTE | 2017-10-07 15:53 | PN ---
Progress Note, Physician Chief Complaint: diarrhea History of Present Illness: Patient in bed he denies diarrhea, pending discharge if passes trial of void. No nausea, no vomiting, no abdominal pain. VSS. - Current Medication List Current Medications: Active Medications Acetaminophen (Tylenol -) 650 mg PO Q6H PRN PRN Reason: Pain 4-6 Acetaminophen (Ofirmev Injection -) 1,000 mg IVPB Q8H PRN PRN Reason: Pain 7-10 Aspirin (Asa -) 81 mg PO DAILY [facility] Last Admin: 10/07/17 10:53 Dose: 81 mg Cholecalciferol (Vitamin D3 -) 5,000 unit PO DAILY [facility] Last Admin: 10/07/17 10:56 Dose: 5,000 unit Enoxaparin Sodium (Lovenox -) 30 mg SQ DAILY [facility] Last Admin: 10/07/17 10:55 Dose: 30 mg Levothyroxine Sodium (Synthroid -) 50 mcg PO DAILY@0700 [facility] Last Admin: 10/07/17 06:20 Dose: 50 mcg Metoprolol Tartrate (Lopressor -) 25 mg PO BID [facility] Last Admin: 10/07/17 10:55 Dose: 25 mg Non-Formulary Medication (Brimonidine Tartrate/Timolol [Combigan 0.2%-0.5% Eye Drops]) 1 drop OD DAILY [facility] Last Admin: 10/07/17 10:54 Dose: 1 drop Non-Formulary Medication (Eluxadoline [Viberzi]) 75 mg PO BID [facility] Last Admin: 10/07/17 10:55 Dose: 75 mg Non-Formulary Medication (Patient's Own Med) 1 each OU DAILY [facility] Last Admin: 10/07/17 10:56 Dose: 1 each Tamsulosin HCl (Flomax -) 0.4 mg PO DAILY@0830 [facility] Last Admin: 10/07/17 10:53 Dose: 0.4 mg - Objective Vital Signs: Vital Signs Temperature 98.2 F 10/07/17 15:11 Pulse Rate 67 10/07/17 15:11 Respiratory Rate 16 10/07/17 15:11 Blood Pressure 135/87 10/07/17 15:11 O2 Sat by Pulse Oximetry (%) 99 10/06/17 21:00 Constitutional: Yes: Well Nourished, No Distress, Calm Eyes: Yes: Conjunctiva Clear HENT: Yes: Atraumatic Cardiovascular: Yes: Regular Rate and Rhythm Respiratory: Yes: Regular, CTA Bilaterally Gastrointestinal: Yes: Normal Bowel Sounds, Soft. No: Hemorrhoids, Rectal Bleeding, Tenderness, Tenderness, Epigastrium Genitourinary: Yes: Anuria Labs: CBC, BMP 10/06/17 06:48 10/07/17 07:35 Problem List - Problems (1) Diarrhea Assessment/Plan: recommendations: 1) continue Lactose free diet 2) colonoscopy outpatient Code(s): R19.7 - DIARRHEA, UNSPECIFIED
[2017-10-07 18:05] VITALS: BP 144/69; PULSE 58; TEMP 99.7
== END 2017-10-07 19:04 | disposition home health service (06) | DRG 268 ==
LOC: J6S 10-01 13:27 → EDSTATUS 10-02 11:30 → JICU 10-02 16:15 → J8W 10-05 16:50
PROVIDERS: ADMIT Surgery; ATTEND Surgery
PROC: 047 Lower Arteries, Dilation (ICD-10-PCS; 2017-10-02)
PROC: 047D3ZZ Dilation of Left Common Iliac Artery, Percutaneous Approach (ICD-10-PCS; 2017-10-02)
PROC: 047C3ZZ Dilation of Right Common Iliac Artery, Percutaneous Approach (ICD-10-PCS; 2017-10-02)
PROC: 3E05317 Introduction of Other Thrombolytic into Peripheral Artery, Percutaneous Approach (ICD-10-PCS; 2017-10-02)
PROC: B41DZZZ Fluoroscopy of Aorta and Bilateral Lower Extremity Arteries (ICD-10-PCS; 2017-10-02)
PROC: [UNRECOGNIZED PROCEDURE] (principal; 2017-10-02 08:00)
DX: I71.4 Abdominal aortic aneurysm, without rupture (principal); G93.41 Metabolic encephalopathy; N17.9 Acute kidney failure, unspecified; Z78.1 Physical restraint status; I25.10 Atherosclerotic heart disease of native coronary artery without angina pectoris; I10 Essential (primary) hypertension; E78.5 Hyperlipidemia, unspecified; M54.16 Radiculopathy, lumbar region; E03.9 Hypothyroidism, unspecified; M35.3 Polymyalgia rheumatica; M10.9 Gout, unspecified; R33.9 Retention of urine, unspecified; E87.6 Hypokalemia; R41.0 Disorientation, unspecified; K58.0 Irritable bowel syndrome with diarrhea; I70.203 Unspecified atherosclerosis of native arteries of extremities, bilateral legs; I70.1 Atherosclerosis of renal artery
CPT/HCPCS: 36415; 71045-TC-FY; 76000-TC-FY; 80048; 80053; 82272; 83735; 84100; 85025; 85027; 86850; 86900; 86901; 87205; 87324; 87449; 93005; 93010; 94010; 94760; 97116-GP; 97161-GP; J1644; J7030

== ENCOUNTER 2017-10-14 20:10 | Emergency (ER) | payer OTHER, BC ==
[2017-10-14 20:15] VITALS: BP 140/70; PULSE 64; TEMP 97.6; BMI 19.3
--- NOTE | 2017-10-14 21:17 | PDOC ---
History of Present Illness - General History Source: Patient Exam Limitations: No Limitations - History of Present Illness Initial Comments: 10/14/17 21:18 The patient is a 86 year old male with a significant past medical history of HTN , hypothyroidism and CAD who presents to the ED with complaints of urinary retention since earlier today. Patient states he had a AAA surgery last week and was discharged home with a sotelo catheter this morning. He reports his visiting nurse removed the catheter at 7am this morning and he has not been able to urinate since then. Denies fevers or chills. Denies any other symptoms PAST MEDICAL HISTORY: HTN, hypothyroidism, CAD PAST SURGICAL HISTORY: AAA surgery FAMILY HISTORY: no pertinent history SOCIAL HISTORY: Pt lives with family and is employed. MEDICATIONS: reviewed ALLERGIES: As per nursing notes General: No fevers or chills, no weakness, no weight loss HEENT: No change in vision. No sore throat,. No ear pain CardioVascular: No chest pain or shortness of breath Respiratory:No cough, or wheezing. Gastrointestinal: no nausea, vomiting, diarrhea or constipation, No rectal bleeding Genitourinary: + urinary retention. No dysuria, hematuria, or frequency Musculoskeletal: No joint or muscle pain or swelling Neurologic: No headache, vertigo, dizziness or loss of consciousness Psychiatric: nor depression Skin: No rashes or easy bruising Endocrine: no increased thirst or abnormal weight change Allergic: no skin or latex allergy All other systems reviewed and normal GENERAL: The patient is awake, alert, and fully oriented, in no acute distress. HEAD: Normal with no signs of trauma. EYES: Pupils equal, round and reactive to light, extraocular movements intact, sclera anicteric, conjunctiva clear. EXTREMITIES: Normal range of motion, no edema. Abdomen: + Bladder palpable to below the umbilicus, no flank pain. Soft, nondistended, normal bowel sounds, nontender to palpation diffusely NEUROLOGICAL: Normal speech, normal gait. PSYCH: Normal mood, normal affect. SKIN: Warm, Dry, normal turgor, no rashes or lesions noted. <Nikos Shea - Last Filed: 10/14/17 21:17> - General History Source: Patient Exam Limitations: No Limitations - History of Present Illness Initial Comments: A portion of this note was documented by scribe services under my direction. I have reviewed the details of the note, within reason, and agree with the documentation. The case summary and management plan written by me. Assessment and plan: This is a 6-year-old male who comes in complaining of acute urinary retention times approximately 14 hours since his catheter is removed at 7 AM this morning. Nursing attempted to place a urinary catheter and attempted to place a coud without success. Dr. Shabazz urology was called and was successful at placing a catheter. Make sure he gets into the joint patient was started on Cipro and Flomax. Patient will follow-up with Dr. Shabazz in one week for removal of the catheter. Patient discharged home <Leo Iraheta I - Last Filed: 10/14/17 22:05> - General Chief Complaint: Urinary Problem Stated Complaint: URINARY RETENTION Time Seen by Provider: 10/14/17 20:13 Past History <Nikos Shea - Last Filed: 10/14/17 21:17> - Past Medical History Cardiac Disorders: Yes (H/O AORTIC ANEURYSM) COPD: No GI Disorders: Yes (? diarrhea ?IBS) Disorders: No HTN: Yes Thyroid Disease: Yes (hypothyroidism, POLYMYALGIA) - Surgical History Abdominal Surgery: Yes (HERNIA REPAIR UMBILICAL) Cardiac Surgery: Yes (CABG) - Suicide/Smoking/Psychosocial Hx Smoking Status: No Smoking History: Never smoked Have you smoked in the past 12 months: No Number of Cigarettes Smoked Daily: 0 Hx Alcohol Use: Yes (wine rarely) Drug/Substance Use Hx: No Substance Use Type: None Hx Substance Use Treatment: No <Leo Iraheta I - Last Filed: 10/14/17 22:05> - Past Medical History Allergies/Adverse Reactions: Allergies Allergy/AdvReac Type Severity Reaction Status Date / Time Penicillins Allergy Verified 10/14/17 20:12 Home Medications: Ambulatory Orders Levothyroxine [Synthroid -] 50 mcg PO DAILY 12/19/14 Cholecalciferol (Vitamin D3) [Vitamin D3] 5,000 unit PO DAILY 12/20/14 Brimonidine Tartrate/Timolol [Combigan 0.2%-0.5% Eye Drops] 1 drop OD DAILY 01/13 Brimonidine Tartrate/Timolol [Combigan 0.2%-0.5% Eye Drops] 5 ml OS BID Eluxadoline [Viberzi] 75 mg PO DAILY 10/01/17 Acetaminophen [Tylenol .Regular Strength -] 650 mg PO Q6H PRN tablet 10/07/17 Aspirin [ASA -] 81 mg PO DAILY tab.chew 10/07/17 Metoprolol Tartrate [Lopressor -] 25 mg PO BID #60 tablet 10/07/17 Tamsulosin HCl [Flomax -] 0.4 mg PO DAILY@0830 #30 cap.er.24h 10/07/17 Ciprofloxacin [Cipro (Restricted To Id)] 250 mg PO BID #14 tablet 10/14/17 Tamsulosin HCl [Flomax] 0.4 mg PO DAILY #7 cap.er.24h 10/14/17 *Physical Exam - Vital Signs Last Vital Signs Temp Pulse Resp BP Pulse Ox 97.6 F 64 18 140/70 100 10/14/17 20:10 10/14/17 20:10 10/14/17 20:10 10/14/17 20:10 10/14/17 20:10 <Nikos Shea - Last Filed: 10/14/17 21:17> - Vital Signs Last Vital Signs Temp Pulse Resp BP Pulse Ox 97.6 F 64 18 140/70 100 10/14/17 20:10 10/14/17 20:10 10/14/17 20:10 10/14/17 20:10 10/14/17 20:10 <Leo Iraheta I - Last Filed: 10/14/17 22:05> *DC/Admit/Observation/Transfer - Attestations Scribe Attestion: 10/14/17 21:19 Documentation prepared by Nikos Shea, acting as medical geneticist for Leo Iraheta MD <Nikos Shea - Last Filed: 10/14/17 21:17> - Discharge Dispostion Admit: No <Leo Iraheta I - Last Filed: 10/14/17 22:05> Diagnosis at time of Disposition: Urinary retention - Discharge Dispostion Disposition: HOME Condition at time of disposition: Stable - Referrals Referrals: Michael Lenz MD [Primary Care Provider] - - Patient Instructions Additional Instructions: Keep the catheter in until you see Dr. Shabazz in 1 week. Follow-up with Dr. Shabazz in 1 week/ Take Cipro to prevent infection one tablet twice a day. Take Flomax to help keep your urine flowing. Return to the emergency department immediately with ANY new, persistent or worsening symptoms. Continue any medications as previously prescribed by your physician. You should follow up with your primary doctor as soon as possible regarding today's emergency department visit. . Please make sure your doctor reviews the results of your emergency evaluation. Thank you for coming to the Emergency Department today for your care. It was a pleasure to see you today. Please note that your evaluation is INCOMPLETE until you follow-up with your doctor. - Post Discharge Activity
[2017-10-14] MEDS ORDERED: CIPROFLOXACIN 500 MG TABLET (RESTRICTED TO ID) PO ONE (21:55)
[2017-10-14] MEDS ORDERED: TAMSULOSIN HCL 0.4 MG CAP.ER.24H (FP) PO ONE (22:00)
[2017-10-14] MEDS ORDERED: TAMSULOSIN HCL 0.4 MG CAP.ER.24H (FP) ONE (22:13)
[2017-10-14] MEDS ORDERED: CIPROFLOXACIN 250 MG TABLET (RESTRICTED TO ID) PO ONE (22:13)
== END 2017-10-14 22:25 | disposition home or self-care (01) ==
LOC: FER 20:10
PROC: 0T9B70Z Drainage of Bladder with Drainage Device, Via Natural or Artificial Opening (ICD-10-PCS; principal; 2017-10-14)
DX: R33.9 Retention of urine, unspecified (principal); I10 Essential (primary) hypertension; I25.10 Atherosclerotic heart disease of native coronary artery without angina pectoris; E03.9 Hypothyroidism, unspecified
CPT/HCPCS: 99281-25

== ENCOUNTER 2018-02-15 20:06 | Inpatient (IN) | payer OTHER, BC ==
--- NOTE | 2018-02-15 21:27 | PDOC ---
History of Present Illness - General Chief Complaint: Back Pain Stated Complaint: BACK PAIN Time Seen by Provider: 02/15/18 20:38 History Source: Patient, Family Exam Limitations: Dementia - History of Present Illness Initial Comments: This is an 87 YOM with h/o HTN, hypothyroidism, CAD, AAA with repair earlier this year, and chronic lumbar back pain and spinal stenosis noted on imaging 3 years ago, who presents to the ED with increased chronic low back pain for the past 4 days with worsening of his chronic BLE weakness. His attempted to get him up from his bed several times today and he would not get up, which is abnormal for him. He stated his legs were to weak to stand or walk. He did not eat anything all day. Otherwise he denies any new f/c/n/v/d/c, DUEÑAS, CP, SOB, numbness, tingling, cough, runny nose, congestion, dysuria, or other symptoms. Past History - Past Medical History Allergies/Adverse Reactions: Allergies Allergy/AdvReac Type Severity Reaction Status Date / Time No Known Allergies Allergy Verified 02/15/18 21:28 Home Medications: Ambulatory Orders Levothyroxine [Synthroid -] 50 mcg PO DAILY 12/19/14 Cholecalciferol (Vitamin D3) [Vitamin D3] 5,000 unit PO DAILY 12/20/14 Brimonidine Tartrate/Timolol [Combigan 0.2%-0.5% Eye Drops] 1 drop OD DAILY 01/13 Brimonidine Tartrate/Timolol [Combigan 0.2%-0.5% Eye Drops] 5 ml OS BID Eluxadoline [Viberzi] 75 mg PO DAILY 10/01/17 Acetaminophen [Tylenol .Regular Strength -] 650 mg PO Q6H PRN tablet 10/07/17 Aspirin [ASA -] 81 mg PO DAILY tab.chew 10/07/17 Metoprolol Tartrate [Lopressor -] 25 mg PO BID #60 tablet 10/07/17 Cardiac Disorders: Yes (H/O AORTIC ANEURYSM) COPD: No GI Disorders: Yes (? diarrhea ?IBS) Disorders: No HTN: Yes Thyroid Disease: Yes (hypothyroidism, POLYMYALGIA) - Surgical History Abdominal Surgery: Yes (HERNIA REPAIR UMBILICAL) Cardiac Surgery: Yes (CABG) - Suicide/Smoking/Psychosocial Hx Smoking Status: No Smoking History: Never smoked Have you smoked in the past 12 months: No Number of Cigarettes Smoked Daily: 0 Information on smoking cessation initiated: No Hx Alcohol Use: Yes Drug/Substance Use Hx: No Substance Use Type: None Hx Substance Use Treatment: No Review of Systems - Review of Systems Able to Perform ROS?: No (dementia) *Physical Exam - Vital Signs Last Vital Signs Temp Pulse Resp BP Pulse Ox 99.0 F 82 18 178/89 98 02/15/18 20:26 02/15/18 20:26 02/15/18 20:26 02/15/18 20:02/15/18 20:26 - Physical Exam General Appearance: Yes: Nourished, Appropriately Dressed, Other (awake, alert, oriented to self and date and city and hospital but not to age, answers simple questions appropriately, at bedside). No: Apparent Distress HEENT: positive: EOMI, Normal Voice, Hearing Grossly Normal, Other (right pupil round and reactive to light, left pupil fixed dilated nonreactive stated chronic d/t multiple surgeries and eye injury). negative: Scleral Icterus (R), Scleral Icterus (L), Nasal Congestion Neck: positive: Trachea midline, Supple. negative: Tender, Rigid Respiratory/Chest: positive: Lungs Clear, Normal Breath Sounds. negative: Respiratory Distress, Crackles, Rhonchi, Stridor, Wheezing Cardiovascular: positive: Regular Rhythm, Regular Rate. negative: Edema, JVD, Murmur Gastrointestinal/Abdominal: positive: Normal Bowel Sounds, Soft. negative: Tender, Organomegaly, Pulsatile Mass, Guarding Musculoskeletal: positive: Normal Inspection. negative: Decreased Range of Motion, Vertebral Tenderness Extremity: positive: Normal Capillary Refill, Normal Inspection, Normal Range of Motion. negative: Tender, Cyanosis Integumentary: positive: Normal Color, Dry, Warm. negative: Erythema, Rash, Bruising Neurologic: positive: bar tacker sewing machine II-XII NML intact, Fully Oriented, Alert, Normal Mood/ Affect, Normal Response, Finger to Nose (normal), Other (gait not tested, motor strength 4/5 BLE and 5/5 BUE). negative: EOM Palsy, Facial Droop, Numbness, Sensory Deficit Heart Score/ECG Review #1 Sinus rhythm, rate of 53, 1st degree AV block, normal axis, normal QTc, no ST-T changes. ED Treatment Course - LABORATORY CBC & Chemistry Diagram: 02/16/18 09:05 02/16/18 09:05 Medical Decision Making - Medical Decision Making Pt with h/o milder low back pain and lumbar spinal stenosis p/w worsened low back pain, worsened chronic BLE weakness. No additional new red flag symptoms (see HPI). Initial Vital Signs Temp Pulse Resp BP Pulse Ox 99.0 F 82 18 178/89 98 02/15/18 20:26 02/15/18 20:26 02/15/18 20:26 02/15/18 20:26 02/15/18 20:26 Exam: As noted in Physical Exam section. DDX IBNLT: spinal stenosis, DDD, DJD, osteophyte, cauda equina syndrome, disc herniation or vertebral fracture with cord or nerve compression, infectious disease (meningitis, encephalitis, spinal epidural abscess jian w/ IVDA), cancer mets, spinal epidural hematoma, conus medullaris, Guillain-[place], botulism, neurosyphilis, syringomyelia, muscle strain/sprain, muscle weakness related to electrolyte derangement, infection, malnourishment, muscle breakdown e.g. statin use, etc W/U ordered: Labs as noted below, EKG, lumbar spine CT, CXR TX ordered: IVF Laboratory Tests 02/15/18 02/15/18 02/15/18 23:00 23:00 23:00 WBC 7.8 RBC 4.07 Hgb 12.1 Hct 35.4 D MCV 87.0 MCH 29.6 MCHC 34.1 RDW 13.7 Plt Count 197 D MPV 7.2 L Absolute Neuts (auto) 4.2 Neutrophils % 54.0 Lymphocytes % 31.1 D Monocytes % 10.4 H Eosinophils % 4.0 Basophils % 0.5 Nucleated RBC % 0 Sodium 142 Potassium 4.0 Chloride 109 H Carbon Dioxide 29 Anion Gap 4 L BUN 30 H Creatinine 2.0 H Creat Clearance w eGFR 31.76 Random Glucose 86 Calcium 9.4 Phosphorus 2.9 D Total Bilirubin 0.9 AST 15 D ALT 14 Alkaline Phosphatase 59 Creatine Kinase 27 L Troponin I < 0.02 Total Protein 6.9 Albumin 3.9 Urine Color Urine Appearance Urine pH Ur Specific [place] Urine Protein Urine Glucose (UA) Urine Ketones Urine Blood Urine Nitrite Urine Bilirubin Urine Urobilinogen Ur Leukocyte Esterase Urine WBC (Auto) Urine RBC (Auto) Urine Mucus 02/16/18 02:10 WBC RBC Hgb Hct MCV MCH MCHC RDW Plt Count MPV Absolute Neuts (auto) Neutrophils % Lymphocytes % Monocytes % Eosinophils % Basophils % Nucleated RBC % Sodium Potassium Chloride Carbon Dioxide Anion Gap BUN Creatinine Creat Clearance w eGFR Random Glucose Calcium Phosphorus Total Bilirubin AST ALT Alkaline Phosphatase Creatine Kinase Troponin I Total Protein Albumin Urine Color Yellow Urine Appearance Clear Urine pH 7.[address] 1.015 Urine Protein 2+ H Urine Glucose (UA) Negative Urine Ketones Negative Urine Blood Negative Urine Nitrite Negative Urine Bilirubin Negative Urine Urobilinogen Negative Ur Leukocyte Esterase Negative Urine WBC (Auto) 1 Urine RBC (Auto) 7 Urine Mucus Rare CXR: Nothing acute. CT/LUMBAR SPINE CT W/O CONTRAST CT scan of the lumbar spine performed in the axial plane with multiplanar reformatting HISTORY: Leg weakness FINDINGS: Degenerative discogenic narrowing L4-5 with irregularity of the superior endplate of L5 and inferior endplate of L4. Grade 1 anterolisthesis L4 on L5 Relative spinal stenosis at L4-5 Degenerative discogenic narrowing L5-S1 Irregular superior endplate of L3 compatible with wedging or compression fracture type deformity Abdominal aortic aneurysm with stent graft repair of lower abdominal aorta and iliac arteries IMPRESSION: Significant degenerative changes of lower lumbar spine as described Recommend MRI for better characterization. Consider neurology consult PRELIMINARY REPORT PROVIDED BY RADIOLOGIST [employer]ODUCTION ASSISTANT Reassessment: Exam unchanged, patient comfortable staying for further workup. ADMIT The patient require further hospital observation, workup, and treatment. Microblog sent to [facility] for admission. Spoke with admitting team business services representative, in agreement Pt to be admitted to Med/ Surg Obs. Decision to Admit order placed to admitting team covering attending Dr. Geronimo. *DC/Admit/Observation/Transfer Diagnosis at time of Disposition: MALINDA (acute kidney injury) Spinal stenosis Qualifiers: Spinal region: unspecified Qualified Code(s): M48.00 - Spinal stenosis, site unspecified Failure to thrive Qualifiers: Failure to thrive age range: in adult Qualified Code(s): R62.7 - Adult failure to thrive - Discharge Dispostion Condition at time of disposition: Guarded Decision to Admit order: Yes - Referrals - Patient Instructions - Post Discharge Activity
--- NOTE | 2018-02-15 22:08 | PDOC ---
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 The patients states that the patient has a chronic history of back pain and lower leg weakness but she states its been worse than usual. She states that this morning he did not get out of bed because he complained of difficulty moving his legs. She also reports decreased PO intake of both solids/liquids. Patient has baseline dementia and is unable to provide the rest of his history. He denies any current pain. 02/15/18 22:47 <Shelia Neumann - Last Filed: 02/15/18 22:47> - Resident Resident Name: Rema Fuchs - ED Attending Attestation I have performed the following: I have examined & evaluated the patient, The case was reviewed & discussed with the resident, I agree w/resident's findings & plan, Exceptions are as noted - Physicial Exam PE: GENERAL: Awake, alert, and fully oriented, in no acute distress HEAD: No signs of trauma EYES: PERRLA, EOMI, sclera anicteric, conjunctiva clear ENT: Auricles normal inspection, hearing grossly normal, nares patent, oropharynx clear without exudates. Moist mucosa NECK: Normal ROM, supple, no lymphadenopathy, JVD, or masses LUNGS: Breath sounds equal, clear to auscultation bilaterally. No wheezes, and no crackles HEART: Regular rate and rhythm, normal S1 and S2, no murmurs, rubs or gallops ABDOMEN: Soft, nontender, normoactive bowel sounds. No guarding, no rebound. No masses EXTREMITIES: Normal range of motion, no edema. No clubbing or cyanosis. No cords, erythema, or tenderness NEUROLOGICAL: Cranial nerves II through XII grossly intact. Normal speech. Sensation intact. Motor 5/5 LLE. R foot 4/5 plantarflexion. SKIN: Warm, Dry, normal turgor, no rashes or lesions noted. SPINE: No midline tenderness. - Medical Decision Making Pt is poor historian, presenting with lower extremity weakness and low back pain. He has history of low back pain in the past, but never accompanied by weakness. Will obtain CT lumbar spine to start evaluation, as MRI is not available at this hour. Likely admission. <Lorraine Bhatt - Last Filed: 02/20/18 08:28>
[2018-02-15 23:17] LABS: BASO % 0.5 % (0-2.0); HEMATOCRIT 35.4 % (35.4-49); HEMOGLOBIN 12.1 GM/dL (11.7-16.9); LYMPH % 31.1 % (8-40); MCH 29.6 pg (25.7-33.7); MCHC 34.1 g/dl (32.0-35.9); MEAN PLT VOLUME 7.2 fl (7.5-11.1); MONO % 10.4 % (3.8-10.2); PLATELET COUNT 197 K/MM3 (134-434); RBC 4.07 M/mm3 (4.00-5.60); RDW 13.7 % (11.9-15.9); WHITE BLOOD COUNT 7.8 K/mm3 (4.0-10.0)
[2018-02-15 23:40] LABS: ALBUMIN 3.9 g/dl (3.4-5.0); ALK PHOS 59 U/L (45-117); ANION GAP 4 (8-16); BILIRUBIN,TOTAL 0.9 mg/dL (0.2-1.0); BLOOD UREA NITROGEN 30 mg/dL (7-18); CALCIUM 9.4 mg/dL (8.5-10.1); CHLORIDE 109 mmol/L (98-107); CO2 29 mmol/L (21-32); GLUCOSE,RANDOM 86 mg/dL (74-106); PHOSPHOROUS 2.9 mg/dL (2.5-4.9); SGOT/AST 15 U/L (15-37); SGPT/ALT 14 U/L (12-78); SODIUM 142 mmol/L (136-145); TOT PROT 6.9 g/dl (6.4-8.2)
[2018-02-16 02:31] LABS: URINE APPEARANCE CLEAR; URINE BILIRUBIN NEGATIVE (<2.0 mg/dL); URINE COLOR YELLOW; URINE GLUCOSE (UA) NEGATIVE (NEGATIVE); URINE KETONE NEGATIVE (NEGATIVE); URINE LEUK ESTERASE NEGATIVE (NEGATIVE); URINE NITRITE NEGATIVE (NEGATIVE); URINE UROBILINOGEN NEGATIVE mg/dL (0.2-1.0)
[2018-02-16 02:37] LABS: URINE PROTEIN 2+ (NEGATIVE)
[2018-02-16 02:39] LABS: URINE MUCUS RARE
--- NOTE | 2018-02-16 03:34 | PN ---
Teaching Attending Note Name of Resident: Ganga Corrales ATTENDING PHYSICIAN STATEMENT I saw and evaluated the patient. I reviewed the resident's note and discussed the case with the resident. I agree with the resident's findings and plan as documented. 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 The patients states that the patient has a chronic history of back pain and lower leg weakness but she states its been worse than usual. She states that this morning he did not get out of bed because he complained of difficulty moving his legs. She also reports decreased PO intake of both solids/liquids. Patient has baseline dementia and is unable to provide the rest of his history. He denies any current pain. OBJECTIVE: Alert, frail looking and in no distress Vital Signs Period Temp Pulse Resp BP Sys/Michel Pulse Ox Last 24 Hr 99.0 F 82 18 178-178/89-89 98 HEENT: No Jaundice, eye redness or discharge, PERRLA, EOMI. Normocephalic, atraumatic. External ears are normal and hearing is grossly intact. No nasal discharge. Neck: Supple, nontender. No palpable adenopathy or thyromegaly. No JVD Chest: Good effort. Clear to auscultation and percussion. Heart: Regular. No S3, rub or murmur Abdomen: Not distended, soft, nontender and no HSM. No rebound or guarding. Normoactive bowel sounds. Ext: Peripheral pulses intact. No leg edema. Lumbar spine tenderness. Skin: Warm and dry. No petechiae, rash or ecchymosis. Neuro: Alert. Oriented x3. CN 2-12 grossly intact. Sensation grossly intact in all four extremities; right LE weakness. Plantar reflexes are flexor. Gait not tested for safety reasons. Home Medications Medication Instructions Recorded Levothyroxine [Synthroid -] 50 mcg PO DAILY 12/19/14 Cholecalciferol (Vitamin D3) 5,000 unit PO DAILY 12/20/14 [Vitamin D3] Brimonidine Tartrate/Timolol 1 drop OD DAILY 10/01/17 [Combigan 0.2%-0.5% Eye Drops] Brimonidine Tartrate/Timolol 5 ml OS BID 10/01/17 [Combigan 0.2%-0.5% Eye Drops] Eluxadoline [Viberzi] 75 mg PO DAILY 10/01/17 Acetaminophen [Tylenol .Regular 650 mg PO Q6H PRN tablet 10/07/17 Strength -] Aspirin [ASA -] 81 mg PO DAILY tab.chew 10/07/17 Metoprolol Tartrate [Lopressor -] 25 mg PO BID #60 tablet 10/07/17 Abnormal Lab Results 02/15/18 02/15/18 02/15/18 23:00 23:00 23:00 MPV 7.2 L Monocytes % 10.4 H Chloride 109 H Anion Gap 4 L BUN 30 H Creatinine 2.0 H Creatine Kinase 27 L Urine Protein 02/16/18 02:10 MPV Monocytes % Chloride Anion Gap BUN Creatinine Creatine Kinase Urine Protein 2+ H ASSESSMENT AND PLAN: 1. Low back pain - CT shows L3 compression fracture of uncertain age and spinal stenosis. Will get MRI, consult neurology and PT. Tylenol, warm compress and lidoderm patch for pain control. 2. CKD - Unclear if it has ever been evaluated. Low anion gap suggests multiple myeloma. Get kidney sonogram, SPEP, UPEP; Encourage liberal oral fluid intake (> 2.5L/day) to correct any superimposed dehydration. Consult nephrology and avoid nephrotoxic agents such as NSAIDS, aminoglycosides, contrast dyes and certain alternative medicine products. 3. DVT prophylaxis - Heparin 5000u sq tid. 4. Advance directives - Full code
--- NOTE | 2018-02-16 06:31 | HP ---
CHIEF COMPLAINT: low back pain PCP: HISTORY OF PRESENT ILLNESS: Pt. is a poor historian. pt. stated that the back pain began in his dentist chair about a week ago. States the pain is 3/10. Dring the middle of acquiring the Hx. Pt. forgets why he is in the hospital and tries to talk about a woman he is in love with, named Brandy(?) ER course was notable for: (1)EKG, CXR, Lumbar Spine CT (2)Tylenol (3)UA, Trop Recent Travel: Did not ask PAST MEDICAL HISTORY: Prostate problems, syncope, HTN as per nurse PAST SURGICAL HISTORY: CABG(2004) x4 Stent, AAA repair (09/2017) Social History: Smoking:no Alcohol:no Drugs: no Family History: None Allergies No Known Allergies Allergy (Verified 02/15/18 21:28) HOME MEDICATIONS: Home Medications Medication Instructions Recorded Levothyroxine [Synthroid -] 50 mcg PO DAILY 12/19/14 Cholecalciferol (Vitamin D3) 5,000 unit PO DAILY 12/20/14 [Vitamin D3] Brimonidine Tartrate/Timolol 1 drop OD DAILY 10/01/17 [Combigan 0.2%-0.5% Eye Drops] Brimonidine Tartrate/Timolol 5 ml OS BID 10/01/17 [Combigan 0.2%-0.5% Eye Drops] Eluxadoline [Viberzi] 75 mg PO DAILY 10/01/17 Acetaminophen [Tylenol .Regular 650 mg PO Q6H PRN tablet 10/07/17 Strength -] Aspirin [ASA -] 81 mg PO DAILY tab.chew 10/07/17 Metoprolol Tartrate [Lopressor -] 25 mg PO BID #60 tablet 10/07/17 REVIEW OF SYSTEMS CONSTITUTIONAL: Absent: fever, chills, diaphoresis, generalized weakness, malaise, loss of appetite, weight change HEENT: Absent: rhinorrhea, nasal congestion, throat pain, throat swelling, difficulty swallowing, mouth swelling, ear pain, eye pain, visual changes CARDIOVASCULAR: Absent: chest pain, syncope, palpitations, irregular heart rate, lightheadedness , peripheral edema RESPIRATORY: Absent: cough, shortness of breath, dyspnea with exertion, orthopnea, wheezing, stridor, hemoptysis GASTROINTESTINAL: Absent: abdominal pain, abdominal distension, nausea, vomiting, diarrhea, constipation, melena, hematochezia GENITOURINARY: Absent: dysuria, frequency, urgency, hesitancy, hematuria, flank pain, genital pain MUSCULOSKELETAL: Absent: myalgia, arthralgia, joint swelling, back pain, neck pain SKIN: Absent: rash, itching, pallor HEMATOLOGIC/IMMUNOLOGIC: Absent: easy bleeding, easy bruising, lymphadenopathy, frequent infections ENDOCRINE: Absent: unexplained weight gain, unexplained weight loss, heat intolerance, cold intolerance NEUROLOGIC: unsteady gait Absent: headache, focal weakness or paresthesias, dizziness, seizure, mental status changes, bladder or bowel incontinence PSYCHIATRIC: Absent: anxiety, depression, suicidal or homicidal ideation, hallucinations. PHYSICAL EXAMINATION Vital Signs - 24 hr 02/15/18 02/15/18 20:26 21:20 Temperature 99.0 F Pulse Rate 82 Respiratory 18 Rate Blood Pressure 178/89 178/89 O2 Sat by Pulse 98 Oximetry (%) GENERAL: Awake, alert, and oriented only to name, in no acute distress. EYES: Pupils equal, round and reactive to light, extraocular movements intact, sclera anicteric, conjunctiva clear. EARS, NOSE, THROAT: nares patent, oropharynx with yellowish-green plaques, discolored teeth, mal odor, moist mucous membranes. LUNGS: Breath sounds equal, clear to auscultation bilaterally. No wheezes, and no crackles. No accessory muscle use. No CVA tenderness HEART: Regular rate and rhythm, normal S1 and S2 without murmur ABDOMEN: Soft, nontender, not distended, normoactive bowel sounds, no guarding, no rebound. UPPER EXTREMITIES: 5/5 strength, warm, well-perfused. No cyanosis. No peripheral edema. LOWER EXTREMITIES: 5/5 strength, warm, well-perfused. No calf tenderness. No peripheral edema. NEUROLOGICAL: Cranial nerves II-XII intact. Normal speech. Abnormal gait, could not stand. PSYCHIATRIC: Cooperative. Good eye contact. Appropriate mood and affect. SKIN: Warm, dry, normal turgor Laboratory Results - last 24 hr 02/15/18 02/15/18 02/15/18 23:00 23:00 23:00 WBC 7.8 RBC 4.07 Hgb 12.1 Hct 35.4 D MCV 87.0 MCH 29.6 MCHC 34.1 RDW 13.7 Plt Count 197 D MPV 7.2 L Absolute Neuts (auto) 4.2 Neutrophils % 54.0 Lymphocytes % 31.1 D Monocytes % 10.4 H Eosinophils % 4.0 Basophils % 0.5 Nucleated RBC % 0 Sodium 142 Potassium 4.0 Chloride 109 H Carbon Dioxide 29 Anion Gap 4 L BUN 30 H Creatinine 2.0 H Creat Clearance w eGFR 31.76 Random Glucose 86 Calcium 9.4 Phosphorus 2.9 D Total Bilirubin 0.9 AST 15 D ALT 14 Alkaline Phosphatase 59 Creatine Kinase 27 L Troponin I < 0.02 Total Protein 6.9 Albumin 3.9 Urine Color Urine Appearance Urine pH Ur Specific [place] Urine Protein Urine Glucose (UA) Urine Ketones Urine Blood Urine Nitrite Urine Bilirubin Urine Urobilinogen Ur Leukocyte Esterase Urine WBC (Auto) Urine RBC (Auto) Urine Mucus 02/16/18 02:10 WBC RBC Hgb Hct MCV MCH MCHC RDW Plt Count MPV Absolute Neuts (auto) Neutrophils % Lymphocytes % Monocytes % Eosinophils % Basophils % Nucleated RBC % Sodium Potassium Chloride Carbon Dioxide Anion Gap BUN Creatinine Creat Clearance w eGFR Random Glucose Calcium Phosphorus Total Bilirubin AST ALT Alkaline Phosphatase Creatine Kinase Troponin I Total Protein Albumin Urine Color Yellow Urine Appearance Clear Urine pH 7.0 Ur Specific [place] 1.015 Urine Protein 2+ H Urine Glucose (UA) Negative Urine Ketones Negative Urine Blood Negative Urine Nitrite Negative Urine Bilirubin Negative Urine Urobilinogen Negative Ur Leukocyte Esterase Negative Urine WBC (Auto) 1 Urine RBC (Auto) 7 Urine Mucus Rare Kidney US(02/16/18): Right kidney slightly atrophic ASSESSMENT/PLAN: 87 y.o. M, w/ PMHx. of CABG(2004) x4 Stent, AAA repair (09/2017), Prostate problems, syncope, HTN as per nurse, presents with difficulty standing. #Low back pain - Tylenol - warm compress - CBC, CMP, Mag, Phos - Lidodderm patch - MRI - PT #Proteinuria - SPEP - UPEP - Kidney US - encourage 2.5 L fluid intake - f/u Hx. of Prostate "problems" #HTN - moitor BP - resume home BP medications #DVT PPx. - Heparin 5k SQ #Dispo -med/surg Visit type - Emergency Visit Emergency Visit: Yes ED Registration Date: 02/16/18 Care time: The patient presented to the Emergency Department on the above date and was hospitalized for further evaluation of their emergent condition. - New Patient This patient is new to me today: Yes Date on this admission: 02/18/18 - Critical Care Critical Care patient: No Hospitalist Screening - Colonoscopy Questionnaire Colonoscopy Questionnaire: Colonoscopy Questionnaire - Patient: 50 - 75 years old and never had a screening colonoscopy: Unknown (Pt. cannot recall) History of colon or rectal polyps, or CA: Unknown History of IBD, Crohn's disease or UC: Unknown History of abdominal radiation therapy as a child: Unknown - Relative: 1 with colon or rectal CA, or polyps at age 60 or younger: Unknown Colon or rectal CA diagnosed at age 45 or younger: Unknown Multiple relatives with colon or rectal CA: Unknown (Pt. cannot recall) - Outcome: Screening Result: Negative Screen
[2018-02-16] MEDS ORDERED: ACETAMINOPHEN 325 MG TABLET (FP) PO PRN ×2 (07:40→19:47)
--- NOTE | 2018-02-16 08:35 | EKG ---
Test Reason : Blood Pressure : / mmHG Vent. Rate : 053 BPM Atrial Rate : 053 BPM P-R Int : 210 ms QRS Dur : 070 ms QT Int : 422 ms P-R-T Axes : 097 012 038 degrees QTc Int : 395 ms SINUS BRADYCARDIA WITH 1ST DEGREE A-V BLOCK OTHERWISE NORMAL ECG WHEN COMPARED WITH ECG OF 02-OCT-2017 13:32, NO SIGNIFICANT CHANGE WAS FOUND Confirmed by LETHA DOSHI, CHARLOTTE ([id number]) on 02/16/2018 8:35:07 AM Referred By: Confirmed By:CHARLOTTE MONAE MD
[2018-02-16] MEDS ORDERED: HEPARIN NA (PORCINE) 5,000 UNITS/ML 1ML VIAL ONE (09:26)
[2018-02-16 09:33] LABS: BASO % 0.4 % (0-2.0); EOS % 3.9 % (0-4.5); HEMATOCRIT 37.7 % (35.4-49); HEMOGLOBIN 12.8 GM/dL (11.7-16.9); LYMPH % 28.7 % (8-40); MCH 29.4 pg (25.7-33.7); MCHC 33.9 g/dl (32.0-35.9); MEAN CELL VOLUME 86.8 fl (80-96); PLATELET COUNT 215 K/MM3 (134-434); RBC 4.35 M/mm3 (4.00-5.60); RDW 13.9 % (11.9-15.9); WHITE BLOOD COUNT 7.9 K/mm3 (4.0-10.0)
[2018-02-16] MEDS: HEPARIN NA (PORCINE) 5,000 UNITS/ML 1ML VIAL SQ SCH ×2 (09:40→22:30)
[2018-02-16 09:55] LABS: ANION GAP 11 (8-16); BLOOD UREA NITROGEN 27 mg/dL (7-18); CALCIUM 9.5 mg/dL (8.5-10.1); CHLORIDE 107 mmol/L (98-107); CO2 26 mmol/L (21-32); CREATININE 1.9 mg/dL (0.7-1.3); GLUCOSE,RANDOM 82 mg/dL (74-106); MAGNESIUM 2.1 mg/dL (1.8-2.4); PHOSPHOROUS 2.7 mg/dL (2.5-4.9); POTASSIUM 3.5 mmol/L (3.5-5.1); SODIUM 144 mmol/L (136-145)
--- NOTE | 2018-02-16 10:23 | CONSULT ---
Consult - text type - Consultation Consultation Note: Renal Consult for MALINDA vs. CKD This is a 87 year old Gentleman with PMhx of Hypertension, CAD, AAA s/p repair earlier this year, Chronic lower back pain, Spinal Stenosis who presented with increased Lower back pain and LE weakness with Cr of 2. Pt denies any history of CKD, kidney stones, hematuira. Does use NSAIDs on occasion for back pain. Has back pain but no bone pain elsewhere in the body. No CP, sob, abd pain, N/V/ D. Urinating w/o difficulty. no KI/ARBs on Home meds. No rash, fever, chills. no recent contrast exposure or abx use. PMhx: as above Allergies: NKDA Family Hx: NC Social Hx: No T/A/D ROS: as per HPI, all other pertinent ros negative Home Medications Medication Instructions Recorded Levothyroxine [Synthroid -] 50 mcg PO DAILY 12/19/14 Cholecalciferol (Vitamin D3) 5,000 unit PO DAILY 12/20/14 [Vitamin D3] Brimonidine Tartrate/Timolol 1 drop OD DAILY 10/01/17 [Combigan 0.2%-0.5% Eye Drops] Brimonidine Tartrate/Timolol 5 ml OS BID 10/01/17 [Combigan 0.2%-0.5% Eye Drops] Eluxadoline [Viberzi] 75 mg PO DAILY 10/01/17 Acetaminophen [Tylenol .Regular 650 mg PO Q6H PRN tablet 10/07/17 Strength -] Aspirin [ASA -] 81 mg PO DAILY tab.chew 10/07/17 Metoprolol Tartrate [Lopressor -] 25 mg PO BID #60 tablet 10/07/17 Vital Signs Temperature 99.2 F 02/16/18 06:52 Pulse Rate 63 02/16/18 06:52 Respiratory Rate 15 02/16/18 06:52 Blood Pressure 123/104 02/16/18 06:52 O2 Sat by Pulse Oximetry (%) 98 02/16/18 06:52 Intake & Output 02/13/18 02/14/18 02/15/18 02/16/18 23:59 23:59 23:59 23:59 Weight 57.606 kg NAD awake and alert neck supple, no JVD, Dry MM RRR, No M/R/G B/L AE, CTA, no rales or wheeze soft NT/ND, no rebound/guarding, hepatomegaly no bladder distension or tenderness No LE edema, clubbing or cyanosis CBC, BMP 02/16/18 09:05 02/16/18 09:05 Laboratory Tests 02/16/18 02/16/18 02/16/18 02:10 09:05 09:05 Calcium 9.5 Magnesium 2.1 Urine Protein 2+ H Urine Nitrite Negative Urine WBC (Auto) 1 Urine RBC (Auto) 7 SIMRAN M-Varun Pending Current Medications Acetaminophen (Tylenol -) 650 mg PO Q6H PRN PRN Reason: Fever Or Pain Heparin Sodium (Porcine) (Heparin -) 5,000 unit SQ TID KRISTY Last Admin: 02/16/18 09:40 Dose: 5,000 unit Lidocaine (Lidoderm Patch -) 1 patch TP DAILY [facility] Miscellaneous (Lidoderm Patch Removal) 1 each MC DAILY@2200 [facility] 87 year old Gentleman with PMhx of Hypertension, CAD, AAA s/p repair earlier this year, Chronic lower back pain, Spinal Stenosis who presented with increased Lower back pain and LE weakness with Cr of 2. #MALINDA on CKD vs. Progressive CKD #Lower back pain #Proteinuria #Low Anion gap r/o MM Prior labs from this year correlate with CKD Check urine studies for FeNa, UPCR Check US of the kidney and bladder would benefit from trial of isotoinc saline continue pain control w/o NSIADs dose all meds for CrCL < 30 no indication for [employer] agree that myloma should be ruled out, however no hypercalceima/anemia at the present time SPEP collected f/u imaging studies of the lower back Thank you Will follow Jay Diaz DO
[2018-02-16] MEDS: LIDOCAINE 5% TOPICAL PATCH TP SCH (10:42)
[2018-02-16] MEDS: SODIUM CHLORIDE 1,000 ML IV SCH (16:57)
[2018-02-16] MEDS ORDERED: LIDOCAINE PATCH REMOVAL MC SCH (22:00)
[2018-02-16] MEDS ORDERED: METOPROLOL TARTRATE 25 MG TABLET (FP) PO SCH (22:00)
[2018-02-16] MEDS: traMADol HCL 50 MG TABLET PO PRN (22:30)
[2018-02-16] MEDS: GABAPENTIN 100 MG CAPSULE (FP) PO SCH (22:31)
[2018-02-17] MEDS ORDERED: hydrALAZINE HCL 20 MG/ML VIAL IVPUSH ONE ×2 (00:04→07:30)
[2018-02-17] MEDS ORDERED: hydrALAZINE HCL 25 MG TABLET (FP) PO ONE ×3 (00:09→05:47)
[2018-02-17] MEDS: SODIUM CHLORIDE 1,000 ML IV SCH (03:23)
[2018-02-17] MEDS: traMADol HCL 50 MG TABLET PO PRN (04:49)
[2018-02-17] MEDS ORDERED: SODIUM CHLORIDE 1,000 ML IV SCH (06:00)
[2018-02-17] MEDS: GABAPENTIN 100 MG CAPSULE (FP) PO SCH ×3 (06:02→21:46)
[2018-02-17] MEDS: HEPARIN NA (PORCINE) 5,000 UNITS/ML 1ML VIAL SQ SCH (06:03)
[2018-02-17] MEDS ORDERED: LEVOTHYROXINE NA 50 MCG TABLET (FP) PO SCH (07:00)
[2018-02-17 07:13] LABS: BASO % 0.5 % (0-2.0); EOS % 2.6 % (0-4.5); HEMATOCRIT 39.1 % (35.4-49); HEMOGLOBIN 13.6 GM/dL (11.7-16.9); LYMPH % 24.5 % (8-40); MCH 29.8 pg (25.7-33.7); MCHC 34.8 g/dl (32.0-35.9); MEAN CELL VOLUME 85.6 fl (80-96); MEAN PLT VOLUME 6.9 fl (7.5-11.1); MONO % 10.5 % (3.8-10.2); NEUT % 61.9 % (42.8-82.8); PLATELET COUNT 226 K/MM3 (134-434); RBC 4.56 M/mm3 (4.00-5.60); RDW 13.8 % (11.9-15.9); WHITE BLOOD COUNT 7.3 K/mm3 (4.0-10.0)
--- NOTE | 2018-02-17 07:21 | HOSP ---
Physical Examination Vital Signs: Vital Signs Temperature 98.9 F 02/17/18 07:00 Pulse Rate 60 02/17/18 07:00 Respiratory Rate 19 02/17/18 07:00 Blood Pressure 196/84 02/17/18 07:00 O2 Sat by Pulse Oximetry (%) 99 02/17/18 07:00 Hospitalist Encounter Assessment: Was called to see patient because of elevated BP. On arriving at the bedside, pt was groaning and holding his penis. BP was 215 systolic. Hydralazine was ordered. Bladder scan was ordered and revealed retention of 800 ml. Pt was alert and oriented to self only. Chart revealed hx of dementia, but unclear what pt's baseline was. Emily richter was called. Head CT revealed subdural with mass effect and midline shift. All code richter labs were drawn, and pt was transferred to Tele. Visit type - Emergency Visit Emergency Visit: No - New Patient This patient is new to me today: Yes Date on this admission: 02/17/18 - Critical Care Critical Care patient: No
[2018-02-17 07:36] LABS: ALBUMIN 4.1 g/dl (3.4-5.0); ANION GAP 9 (8-16); BLOOD UREA NITROGEN 26 mg/dL (7-18); CALCIUM 9.3 mg/dL (8.5-10.1); CHLORIDE 108 mmol/L (98-107); CO2 26 mmol/L (21-32); GLUCOSE,RANDOM 86 mg/dL (74-106); POTASSIUM 3.7 mmol/L (3.5-5.1); SGOT/AST 24 U/L (15-37); SODIUM 143 mmol/L (136-145)
[2018-02-17 07:39] LABS: ALK PHOS 67 U/L (45-117); BILIRUBIN,TOTAL 1.1 mg/dL (0.2-1.0); CREATININE 1.8 mg/dL (0.7-1.3); HDL CHOLESTEROL 44 mg/dL (40-60); PHOSPHOROUS 2.5 mg/dL (2.5-4.9); SGPT/ALT 14 U/L (12-78); TOT PROT 7.4 g/dl (6.4-8.2)
[2018-02-17] MEDS ORDERED: DEXAMETHASONE SOD PHOSPHATE 10 MG/1 ML VIAL IVPUSH SCH (07:40)
[2018-02-17] MEDS ORDERED: FUROSEMIDE 40 MG/4 ML INJECTABLE VIAL IVPUSH ONE (08:00)
[2018-02-17] MEDS ORDERED: LABETALOL HCL 5 MG/1 ML (100MG/20 ML VIAL) ONE (08:53)
--- NOTE | 2018-02-17 08:59 | CONSULT ---
Consult - text type - Consultation Consultation Note: Neurology History of Present Illness Initial Comments: This is an 87 YOM with h/o HTN, hypothyroidism, CAD, AAA with repair earlier this year, and chronic lumbar back pain and spinal stenosis noted on imaging 3 years ago, who presented to the ED with increased chronic low back pain for the past 4 days with worsening of his chronic BLE weakness. His attempted to get him up from his bed but would not get up, which is abnormal for him. He stated his legs were too weak to stand or walk. He was admitted to the hospital and CT L spine showed degenerative changes. Overnight, with altered mental status and CT head completed which I reviewed and showed acute SDH 1.7-1.9cm in size per report with mass effect and right to left shift. NSGY consulted, awaiting evaluation. Patient transferred to ICU and under close monitoring. BPs during my visit were >200 systolic, advised tighter control, goal <160 for today and < 140 overnight. Discussed with residents in detail and nurse. Also recommended seizure ppx, Keppra 750mg twice daily given large size of blood products. Past History - Past Medical History Allergies/Adverse Reactions: Allergies Allergy/AdvReac Type Severity Reaction Status Date / Time No Known Allergies Allergy Verified 02/15/18 21:28 Home Medications: Ambulatory Orders Levothyroxine [Synthroid -] 50 mcg PO DAILY 12/19/14 Cholecalciferol (Vitamin D3) [Vitamin D3] 5,000 unit PO DAILY 12/20/14 Brimonidine Tartrate/Timolol [Combigan 0.2%-0.5% Eye Drops] 1 drop OD DAILY 01/13 Brimonidine Tartrate/Timolol [Combigan 0.2%-0.5% Eye Drops] 5 ml OS BID Eluxadoline [Viberzi] 75 mg PO DAILY 10/01/17 Acetaminophen [Tylenol .Regular Strength -] 650 mg PO Q6H PRN tablet 10/07/17 Aspirin [ASA -] 81 mg PO DAILY tab.chew 10/07/17 Metoprolol Tartrate [Lopressor -] 25 mg PO BID #60 tablet 10/07/17 Cardiac Disorders: Yes (H/O AORTIC ANEURYSM) COPD: No GI Disorders: Yes (? diarrhea ?IBS) Disorders: No HTN: Yes Thyroid Disease: Yes (hypothyroidism, POLYMYALGIA) - Surgical History Abdominal Surgery: Yes (HERNIA REPAIR UMBILICAL) Cardiac Surgery: Yes (CABG) - Suicide/Smoking/Psychosocial Hx Smoking Status: No Smoking History: Never smoked Have you smoked in the past 12 months: No Number of Cigarettes Smoked Daily: 0 Information on smoking cessation initiated: No Hx Alcohol Use: Yes Drug/Substance Use Hx: No Substance Use Type: None Hx Substance Use Treatment: No Review of Systems - Review of Systems Able to Perform ROS?: No (dementia) *Physical Exam Vital Signs Period Temp Pulse Resp BP Sys/Michel Pulse Ox Last 24 Hr 98.0 F-98.9 F 59-77 18-20 149-215/74-141 98-99 - Physical Exam General Appearance: Yes: Nourished, Appropriately Dressed, Not answering questions, somnolent HEENT: positive: EOMI, Normal Voice, Hearing Grossly Normal, Other (right pupil round and reactive to light, left pupil fixed dilated nonreactive stated chronic d/t multiple surgeries and eye injury). negative: Scleral Icterus (R), Scleral Icterus (L), Nasal Congestion Neck: positive: Trachea midline, Supple. negative: Tender, Rigid Respiratory/Chest: positive: Lungs Clear, Normal Breath Sounds. negative: Respiratory Distress, Crackles, Rhonchi, Stridor, Wheezing Cardiovascular: positive: Regular Rhythm, Regular Rate. negative: Edema, JVD, Murmur Gastrointestinal/Abdominal: positive: Normal Bowel Sounds, Soft. negative: Tender, Organomegaly, Pulsatile Mass, Guarding Musculoskeletal: positive: Normal Inspection. negative: Decreased Range of Motion, Vertebral Tenderness Extremity: positive: Normal Capillary Refill, Normal Inspection, Normal Range of Motion. negative: Tender, Cyanosis Integumentary: positive: Normal Color, Dry, Warm. negative: Erythema, Rash, Bruising Neurologic: No facial droop, responds to voice, sensory intact to tactile stim , moves extremities but not participating in confrontation testing CBCD WBC 7.3 K/mm3 (4.0-10.0) 02/17/18 05:30 RBC 4.56 M/mm3 (4.00-5.60) 02/17/18 05:30 Hgb 13.6 GM/dL (11.7-16.9) 02/17/18 05:30 Hct 39.1 % (35.4-49) 02/17/18 05:30 MCV 85.6 fl (80-96) 02/17/18 05:30 MCHC 34.8 g/dl (32.0-35.9) 02/17/18 05:30 RDW 13.8 % (11.9-15.9) 02/17/18 05:30 Plt Count 226 K/MM3 (134-434) 02/17/18 05:30 MPV 6.9 fl (7.5-11.1) L 02/17/18 05:30 CMP Sodium 143 mmol/L (136-145) 02/17/18 05:30 Potassium 3.7 mmol/L (3.5-5.1) 02/17/18 05:30 Chloride 108 mmol/L (98-107) H 02/17/18 05:30 Carbon Dioxide 26 mmol/L (21-32) 02/17/18 05:30 Anion Gap 9 (8-16) 02/17/18 05:30 BUN 26 mg/dL (7-18) H 02/17/18 05:30 Creatinine 1.8 mg/dL (0.7-1.3) H 02/17/18 05:30 Creat Clearance w eGFR 35.87 (>60) 02/17/18 05:30 Calcium 9.3 mg/dL (8.5-10.1) 02/17/18 05:30 Total Bilirubin 1.1 mg/dL (0.2-1.0) H 02/17/18 05:30 AST 24 U/L (15-37) D 02/17/18 05:30 ALT 14 U/L (12-78) 02/17/18 05:30 Alkaline Phosphatase 67 U/L (45-117) 02/17/18 05:30 Total Protein 7.4 g/dl (6.4-8.2) 02/17/18 05:30 Albumin 4.1 g/dl (3.4-5.0) 02/17/18 05:[address] L spine reviewed Medical Decision Making 87 YOM with h/o HTN, hypothyroidism, CAD, AAA with repair earlier this year, and chronic lumbar back pain and spinal stenosis noted on imaging 3 years ago, who presented to the ED with increased chronic low back pain for the past 4 days with worsening of his chronic BLE weakness. His attempted to get him up from his bed but would not get up, which is abnormal for him. He stated his legs were too weak to stand or walk. He was admitted to the hospital and CT L spine showed degenerative changes. Overnight, with altered mental status and CT head completed which I reviewed and showed acute SDH 1.7-1.9cm in size per report with mass effect and right to left shift. Patient transferred to ICU and under close monitoring. BPs during my visit were >200 systolic, advised tighter control, goal <160 for today and < 140 overnight. Discussed with residents in detail and nurse. Also recommended seizure ppx, Keppra 750mg twice daily given large size of blood products. Monitor airway protection, intubation if required. Hold any antiplatelet medication (on ASA, Plavix at home) NSGY consulted, awaiting evaluation. Critical care 45 mins.
[2018-02-17] MEDS: LABETALOL HCL INJECTION 1,000 MG in SODIUM CHLORIDE 800 ML IV SCH (09:00)
[2018-02-17] MEDS ORDERED: METOPROLOL TARTRATE 5 MG/5 ML VIAL IVPUSH ONE (09:30)
[2018-02-17] MEDS ORDERED: PATIENT'S OWN MEDICATION (NON-FORMULARY) (Brimonidine Tartrate/Timolol [Combigan 0.2%-0.5% OD SCH (10:00)
[2018-02-17] MEDS ORDERED: TIMOLOL 0.5% OPHTHALMIC SOL 5 ML BOTTLE OD SCH (10:00)
[2018-02-17] MEDS ORDERED: BRIMONIDINE TARTRATE 0.2% OPHTHALMIC 5 ML BOTTLE OD SCH (10:00)
[2018-02-17] MEDS ORDERED: ASPIRIN 81 MG CHEWABLE TABLETS PO SCH (10:00)
[2018-02-17] MEDS ORDERED: traMADol HCL 50 MG TABLET PO PRN (10:19)
[2018-02-17] MEDS ORDERED: ACETAMINOPHEN 325 MG TABLET (FP) PO PRN (10:19)
[2018-02-17 10:24] LABS: INR 1.34 (0.82-1.09); PROTHROMBIN TIME (PATIENT) 15.1 SEC (9.7-13.0)
--- NOTE | 2018-02-17 10:51 | CONSULT ---
Admitting History and Physical - Primary Care Physician PCP: Marv Harding - Admission History of Present Illness: 87 year old Gentleman with PMhx of Hypertension, CAD, AAA s/p repair earlier this year, Chronic lower back pain, Spinal Stenosis who presented with increased Lower back pain and LE weakness with Cr of 2. 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 No: AFIB, Aneurysm, Aortic Insufficiency, Aortic Stenosis, CHF, Deep Vein Thrombosis, NE, Mitral Insufficiency, Mitral Stenosis, Murmur, Pulmonary Hypertension Musculoskeletal: Yes: Chronic low back pain (with radiculopathy) Rheumatology: Yes: Gout, Other (Polymyalgia Rheumatica) Endocrine: Yes: Hypothyroidism. No: Brandt's Disease, [place]'s Disease, Diabetes Insipidus, Diabetes Mellitus, Hyperparathyroidism, Hyperthyroidism, Osteopenia, SIADH, Other - Past Surgical History Past Surgical History: Yes: Appendectomy, CABG ([facility]), Tonsillectomy. No: None, AAA Repair, AICD, Amputation, Arthrosocopy, AV Fistula/Graft, Bariatric Surgery , Breast Biopsy, Bypass, Carotid Endarterectomy, Cataract Removal, Cholecystectomy, Colectomy, Colonoscopy, Colostomy, Craniotomy, , Cystectomy, Hernia Repair, Hysterectomy, Ileal Conduit, Ileosotomy, Joint Replacement, Kidney Transplant, Laminectomy, Liver Transplant, Mastectomy, Nephrectomy, Oopherectomy, Orchiectomy, Permanent Pacemaker, Prostatectomy, Splenectomy, Stent, Thoracotomy, TURP, Tubal Ligation, Upper Endoscopy, Valve Replacement, Vasectomy, Vein Stripping/Ligation - Advance Directives Advance Directives: Yes: Health Care Proxy - Smoking History Smoking history: Never smoked Have you smoked in the past 12 months: No Aproximately how many cigarettes per day: 0 - Alcohol/Substance Use Hx Alcohol Use: Yes (SOCIALLY) History - Admission Reason For Visit: ACUTE KIDNEY INJURY/FAILURE TO THRIVE/ - Diagnostics CT Scan: Report Reviewed (CT head-acute SDH 1.7-1.9cm in size per report with mass effect and right to left shift) - General Mental Status: Awake and Alert, Able to Follow Commands (simple 1 stage only), Forgetful, Vague, Confused Attention: Distractible, Mild Impairment Ability to Follow Directions: Fair Head/Neck Control: Fair - Hearing Hearing: Impaired Hearing Aide: No With Patient: No Speech Evaluation - Communication Primary Language: TANZANIAN Communication: Yes: Simple Responses Oral Expression Ability: Yes: Mild Impairment, Moderate Impairment - Speech Production Able to Make Needs Known: Yes: Mildly Impaired, Moderately Impaired Intelligibility: Yes: Mildly Impaired - Speech Characteristics Voice Loudness: Normal Voice Pitch: Yes: Normal Voice Phonatory-based Quality: Yes: Normal Speech Pattern: Impaired Speech Clarity: < 50% Nasal Resonance: Normal Articulation: Yes: Imprecise Rate of Speech: Too Slow - Language/Auditory Comprehension Follows: Yes: 1 Stage Simple Commands Observation: Comprehends Conversational Speech: Yes (simple, if loud enough), Benefits from Slow Speech: Yes, Benefits from Repetiton: Yes, Benefits from Increased Volume of Speech: Yes - Language/Verbal Expression Aphasia: Yes: Anomia (perseverative), Impaired Repetition (on low probability, longer sentences), Apraxia, Sound Errors Able to Respond to Simple Queries: Yes: Moderately Impaired Able to Communicate Wants and Needs: Yes: Moderately Impaired Functional Communication Status: Yes: Moderately Impaired Aware of Errors: No Attempts to Correct Errors: No Attention: Yes: Distractible - Swallow Evaluation/Bedside Assessment Current Nutritional Intake: NPO Oral Secretions: Yes: WFL Dentition: Yes: Adequate, Missing Teeth (posteriorally) Facial Symmetry at Rest: Facial Droop Right Against Resistance Opening: Weak Against Resistance Closing: Weak Pucker Lips: Normal Smile: Normal Lingual Movement: Symmetric Lingual Speed of Movement: Reduced Lingual Movement Strgth Against Opposition: Reduced Velopharyngeal Movement: Normal Laryngeal Movement: Labored,delay initiation Rate of Intake: Slow/Holding Labial Seal: WFL Oral Prep Time: Increased A-P Transit: Impaired Timing of Swallow: Delayed Coughing/Throat Clear: Yes (1 hard, brief cough with 3 oz water test) Recommendations - Speech Evaluation, Impression/Plan Impression: Pt is verbal, imprecise slow articulation, perseverative responses, limited ability to respond to simple questions, Language deficits/confusion. Delayed swalow. Nursing has concern of Apnea/risk of need for intubation/ not stable neurologically. To keep NPO today. Meds ok in applesauce. - Disposition Discharge to: To be Determined - Dysphagia Impressions/Plan Swallowing Skills: Impaired Dysphagia Impressions: Ongoing Evaluation *Silent aspiration: cannot be R/O at bedside - Recommendations Diet Consistency: NPO Medication Administration: Crushed with applesauce Liquids: NPO
[2018-02-17] MEDS: levETIRAcetam 500 MG/5 ML INJECTION VIAL IVPB SCH ×2 (11:00→21:58)
--- NOTE | 2018-02-17 11:17 | PN ---
Progress Note (short form) - Note Progress Note: Renal follow up for MALINDA/CKD Pt seen and examined at the bedside s/p FINGER BUFF SEWER for hyperetnsion yesterday and CT head showed acute on chronic subdural hematoma Bladder scan showed urinary retention and sotelo was inserted BP being controlled with IV Labetalol Vital Signs Temperature 98.9 F 02/17/18 07:00 Pulse Rate 64 02/17/18 09:36 Respiratory Rate 19 02/17/18 07:00 Blood Pressure 170/73 02/17/18 09:36 O2 Sat by Pulse Oximetry (%) 99 02/17/18 07:00 Intake & Output 02/14/18 02/15/18 02/16/18 02/17/18 23:59 23:59 23:59 23:59 Intake Total 150 1100 Output Total 900 Balance 150 200 Weight 57.606 kg 57.606 kg NAD awake and alert speech appears more garbled today Neck supple, no JVD RRR, no M/R no rales soft NT/ND no LE edema, clubbing or cyanosis CBC, BMP 02/17/18 05:30 02/17/18 05:30 Current Medications Acetaminophen (Tylenol -) 650 mg PO Q6H PRN PRN Reason: FEVER Brimonidine Tartrate (Alphagan 0.2% -) 1 drop OD BID [facility] Gabapentin (Neurontin -) 100 mg PO TID [facility] Labetalol HCl 1,000 mg/ Sodium (Chloride) 1,000 mls @ 120 mls/hr IV TITR [facility] Last Admin: 02/17/18 09:00 Dose: 2 mg/min, 120 mls/hr Levetiracetam (Keppra Injection -) 750 mg IVPB BID [facility] Last Admin: 02/17/18 11:00 Dose: 750 mg Levothyroxine Sodium (Synthroid -) 50 mcg PO DAILY@0700 [facility] Lidocaine (Lidoderm Patch -) 1 patch TP DAILY [facility] Miscellaneous (Lidoderm Patch Removal) 1 each MC DAILY@2200 [facility] Timolol Maleate (Timoptic 0.5%) 1 drop OD BID [facility] Tramadol HCl (Ultram -) 50 mg PO Q6H PRN PRN Reason: PAIN LEVEL 4 - 6 87 year old Gentleman with PMhx of Hypertension, CAD, AAA s/p repair earlier this year, Chronic lower back pain, Spinal Stenosis who presented with increased Lower back pain and LE weakness with Cr of 2. #MALINDA on CKD vs. 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
--- NOTE | 2018-02-17 11:32 | EKG ---
Test Reason : Blood Pressure : / mmHG Vent. Rate : 051 BPM Atrial Rate : 051 BPM P-R Int : 210 ms QRS Dur : 086 ms QT Int : 474 ms P-R-T Axes : 059 -03 044 degrees QTc Int : 436 ms SINUS BRADYCARDIA WITH 1ST DEGREE A-V BLOCK OTHERWISE NORMAL ECG WHEN COMPARED WITH ECG OF 15-FEB-2018 23:53, NO SIGNIFICANT CHANGE WAS FOUND Confirmed by LETHA DOSHI, CHARLOTTE ([id number]) on 02/17/2018 11:32:12 AM Referred By: ERIK THOMAS DR Confirmed By:CHARLOTTE MONAE MD
--- NOTE | 2018-02-17 11:39 | PN ---
Progress Note (short form) - Note Progress Note: Pt seen/ examined in icu Chart reviewed awake/ comfortable denies pain answers simple questions slowly Vital Signs Temp 98.9 F 02/17/18 07:00 Pulse 64 02/17/18 09:36 Resp 19 02/17/18 07:00 BP 170/73 02/17/18 09:36 Pulse Ox 99 02/17/18 07:00 Intake & Output 02/16/18 02/16/18 02/17/18 11:59 23:59 11:59 Intake Total 150 1100 Output Total 900 Balance 150 200 Weight 127 lb Intake: IV 150 900 Normal Saline - 1,000 ml 150 900 @ 75 mls/hr IV ASDIR KRISTY Rx#:[id number] Oral 200 Output: Urine 900 Penny 900 Other: Voiding Method Urinal Indwelling Catheter # Unmeasured Voids Void 2 1 Height 5 ft 8 in Body Mass Index (BMI) 19.3 Weight Measurement Method Stated by Patient Active Medications Acetaminophen (Tylenol -) 650 mg PO Q6H PRN PRN Reason: FEVER Brimonidine Tartrate (Alphagan 0.2% -) 1 drop OD BID [facility] Gabapentin (Neurontin -) 100 mg PO TID [facility] Labetalol HCl 1,000 mg/ Sodium (Chloride) 1,000 mls @ 120 mls/hr IV TITR [facility] Last Admin: 02/17/18 09:00 Dose: 2 mg/min, 120 mls/hr Levetiracetam (Keppra Injection -) 750 mg IVPB BID [facility] Last Admin: 02/17/18 11:00 Dose: 750 mg Levothyroxine Sodium (Synthroid -) 50 mcg PO DAILY@0700 [facility] Lidocaine (Lidoderm Patch -) 1 patch TP DAILY [facility] Miscellaneous (Lidoderm Patch Removal) 1 each MC DAILY@2200 [facility] Timolol Maleate (Timoptic 0.5%) 1 drop OD BID [facility] Tramadol HCl (Ultram -) 50 mg PO Q6H PRN PRN Reason: PAIN LEVEL 4 - 6 CBC, BMP 02/17/18 05:30 02/17/18 05:30 Microbiology 02/16/18 02:10 Urine Culture - Final Urine - Urine Clean Catch NO GROWTH OBTAINED ct head - reviewed Physical exam Awake. heent- no jvd PERRLA lungs- clear cvs- s1, s2 rrr abd- soft ext- no edema neuro- non focal A/p Acute Left SDH 1.7-1.9 cm-- with mass effect and shift. HTN Hypothyroidism AAA CAD Monitor closely in icu Meds reviewed Discussed with Resident team' Discussed with also No steroids per Neurology Neurosurgery consult requested condition gaurded continue present care Discussed with pts also cc time 40 min will follow
[2018-02-17] MEDS: LIDOCAINE 5% TOPICAL PATCH TP SCH (12:29)
--- NOTE | 2018-02-17 15:28 | PN ---
Teaching Attending Note Name of Resident: Farhan Armijo ATTENDING PHYSICIAN STATEMENT I saw and evaluated the patient. I reviewed the resident's note and discussed the case with the resident. I agree with the resident's findings and plan as documented. SUBJECTIVE: Patient seen and examined in the ICU. Awake and interactive but confused. Denies CP or SOB. Denies DUEÑAS, BOV, dizziness, etc. Intake & Output 02/14/18 02/15/18 02/16/18 02/17/18 23:59 23:59 23:59 23:59 Intake Total 150 1100 Output Total 900 Balance 150 200 Weight 126 lb 15.992 oz 127 lb Last Vital Signs Temp Pulse Resp BP Pulse Ox 98.9 F 53 L 19 144/67 99 02/17/18 07:00 02/17/18 13:30 02/17/18 07:00 02/17/18 13:30 02/17/18 07:00 Active Medications Acetaminophen (Tylenol -) 650 mg PO Q6H PRN PRN Reason: FEVER Brimonidine Tartrate (Alphagan 0.2% -) 1 drop OD BID [facility] Gabapentin (Neurontin -) 100 mg PO TID [facility] Last Admin: 02/17/18 14:32 Dose: Not Given Labetalol HCl 1,000 mg/ Sodium (Chloride) 1,000 mls @ 120 mls/hr IV TITR [facility] Last Infusion: 02/17/18 13:30 Dose: 0 mg/min, 0 mls/hr Levetiracetam (Keppra Injection -) 750 mg IVPB BID [facility] Last Admin: 02/17/18 11:00 Dose: 750 mg Levothyroxine Sodium (Synthroid -) 50 mcg PO DAILY@0700 [facility] Lidocaine (Lidoderm Patch -) 1 patch TP DAILY [facility] Miscellaneous (Lidoderm Patch Removal) 1 each MC DAILY@2200 [facility] Timolol Maleate (Timoptic 0.5%) 1 drop OD BID [facility] Tramadol HCl (Ultram -) 50 mg PO Q6H PRN PRN Reason: PAIN LEVEL 4 - 6 General Appearance: Yes: Awake and alert, NAD HEENT: (-) Pallor, left pupillary changes, (-) Icterus Neck: positive: Trachea midline, Supple. negative: Tender, Rigid Respiratory/Chest: positive: Clear, (-) Crackles, Wheezing Cardiovascular: positive: Regular Rhythm, Regular Rate. negative: Edema, JVD, Murmur Gastrointestinal/Abdominal: positive: Normal Bowel Sounds, Soft. negative: Organomegaly, Pulsatile Mass, Guarding Musculoskeletal: positive: Normal Inspection. negative: Decreased Range of Motion, Vertebral Tenderness Extremity: positive: Normal Capillary Refill, Normal Inspection, Normal Range of Motion. negative: Tender, Cyanosis Integumentary: positive: Normal Color, Dry, Warm. negative: Erythema, Rash, Bruising Neurologic: No facial droop, non-focal CBCD WBC 7.3 K/mm3 (4.0-10.0) 02/17/18 05:30 RBC 4.56 M/mm3 (4.00-5.60) 02/17/18 05:30 Hgb 13.6 GM/dL (11.7-16.9) 02/17/18 05:30 Hct 39.1 % (35.4-49) 02/17/18 05:30 MCV 85.6 fl (80-96) 02/17/18 05:30 MCHC 34.8 g/dl (32.0-35.9) 02/17/18 05:30 RDW 13.8 % (11.9-15.9) 02/17/18 05:30 Plt Count 226 K/MM3 (134-434) 02/17/18 05:30 MPV 6.9 fl (7.5-11.1) L 02/17/18 05:30 CMP Sodium 143 mmol/L (136-145) 02/17/18 05:30 Potassium 3.7 mmol/L (3.5-5.1) 02/17/18 05:30 Chloride 108 mmol/L (98-107) H 02/17/18 05:30 Carbon Dioxide 26 mmol/L (21-32) 02/17/18 05:30 Anion Gap 9 (8-16) 02/17/18 05:30 BUN 26 mg/dL (7-18) H 02/17/18 05:30 Creatinine 1.8 mg/dL (0.7-1.3) H 02/17/18 05:30 Creat Clearance w eGFR 35.87 (>60) 02/17/18 05:30 Calcium 9.3 mg/dL (8.5-10.1) 02/17/18 05:30 Total Bilirubin 1.1 mg/dL (0.2-1.0) H 02/17/18 05:30 AST 24 U/L (15-37) D 02/17/18 05:30 ALT 14 U/L (12-78) 02/17/18 05:30 Alkaline Phosphatase 67 U/L (45-117) 02/17/18 05:30 Total Protein 7.4 g/dl (6.4-8.2) 02/17/18 05:30 Albumin 4.1 g/dl (3.4-5.0) 02/17/18 05:30 IMP: Acute Left SDH 1.7-1.9 cm mass effect and shift. HTN Hypothyroidism AAA CAD PLAN: Follow Neuro exam O2 as needed Aspiration precautions Neurosurigcal consult and for possible OR Intervention SCDkeith Franks BP control: goal < 140, unless symptoms of hypoperfusion with lowering Seizure precautions ICU monitoring Dr Pinedo Critical care time spent in reviewing chart, evaluating patient and formulating plan - 36 minutes.
[2018-02-17] MEDS ORDERED: LIDOCAINE 1%/EPI 1:100000 (20 ML MULTI DOSE VIAL) ONE (17:38)
[2018-02-17] MEDS ORDERED: BUPIVACAINE HCL/PF 0.5% (5MG/ML) 10 ML VIAL ONE (17:38)
--- NOTE | 2018-02-17 20:58 | PN ---
Physical Exam: SUBJECTIVE: Patient seen and examined today in icu. Pt is disoriented and does not remember how he arrived at hospital. Was scheduled for surgical evacuation of subdural hematoma but surgery postponed until tomorrow per neurosurgery. OBJECTIVE: Vital Signs Period Temp Pulse Resp BP Sys/Michel Pulse Ox Last 24 Hr 98.2 F-98.9 F 49-77 10-20 140-215/64-141 98-100 GENERAL: Disoriented HEAD: NC/AT EYES: Clouding. EOMI. ENT: WNL NECK: No JVD. LUNGS: CTA B/L HEART: RRR ABDOMEN: NT, No Distension, No HSM EXTREMITIES: No CCE NEUROLOGICAL: Unable to observe observed. SKIN: Warm. Laboratory Results - last 24 hr 02/17/18 02/17/18 02/17/18 05:30 05:30 05:30 WBC 7.3 RBC 4.56 Hgb 13.6 Hct 39.1 MCV 85.6 MCH 29.8 MCHC 34.8 RDW 13.8 Plt Count 226 MPV 6.9 L Absolute Neuts (auto) 4.5 Neutrophils % 61.9 Lymphocytes % 24.5 Monocytes % 10.5 H Eosinophils % 2.6 Basophils % 0.5 Nucleated RBC % 0 PT with INR INR Sodium 143 Cancelled Potassium 3.7 Cancelled Chloride 108 H Cancelled Carbon Dioxide 26 Cancelled Anion Gap 9 Cancelled BUN 26 H Cancelled Creatinine 1.8 H Cancelled Creat Clearance w eGFR 35.87 Cancelled POC Glucometer Random Glucose 86 Cancelled Calcium 9.3 Cancelled Phosphorus 2.5 Magnesium 2.0 Total Bilirubin 1.1 H Cancelled AST 24 D Cancelled ALT 14 Cancelled Alkaline Phosphatase 67 Cancelled Total Protein 7.4 Cancelled Albumin 4.1 Cancelled HDL Cholesterol 44 Cancelled Blood Type Antibody Screen 02/17/18 02/17/18 02/17/18 05:30 10:15 18:23 WBC RBC Hgb Hct MCV MCH MCHC RDW Plt Count MPV Absolute Neuts (auto) Neutrophils % Lymphocytes % Monocytes % Eosinophils % Basophils % Nucleated RBC % PT with INR 15.10 H INR 1.34 H Sodium Potassium Chloride Carbon Dioxide Anion Gap BUN Creatinine Creat Clearance w eGFR POC Glucometer [id number] Random Glucose Calcium Phosphorus Magnesium Total Bilirubin AST ALT Alkaline Phosphatase Total Protein Albumin HDL Cholesterol Blood Type O NEGATIVE Antibody Screen Negative Active Medications Generic Name Dose Route Start Last Admin Trade Name Freq PRN Reason Stop Dose Admin Acetaminophen 650 mg 02/17/18 10:19 Tylenol - PO Q6H PRN FEVER Brimonidine Tartrate 1 drop 02/17/18 22:00 Alphagan 0.2% - OD BID [facility] Gabapentin 100 mg 02/17/18 14:00 02/17/18 14:32 Neurontin - PO Not Given TID KRISTY Labetalol HCl 1,000 mg/ Sodium 1,000 mls @ 120 mls/hr 02/17/18 08:45 13:30 Chloride IV 0 mg/min TITR KRISTY 0 mls/hr Infusion 2 MG/MIN Levetiracetam 750 mg 02/17/18 10:00 02/17/18 11:00 Keppra Injection - IVPB 750 mg BID KRIST[facility] Administration Levothyroxine Sodium 50 mcg 02/18/18 07:00 Synthroid - PO DAILY@0700 [facility] Lidocaine 1 patch 02/18/18 10:00 Lidoderm Patch - TP DAILY [facility] Miscellaneous 1 each 02/17/18 22:00 Lidoderm Patch Removal MC DAILY@2200 [facility] Timolol Maleate 1 drop 02/17/18 22:00 Timoptic 0.5% OD BID [facility] Tramadol HCl 50 mg 02/17/18 10:19 Ultram - PO Q6H PRN PAIN LEVEL 4 - 6 ASSESSMENT/PLAN: 87 y/o gentleman with a PMH of HTN, Dementia, HLD, 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 Neuro- Disoriented Neurosurgery on board. Pt to have subdural hematoma evacuated by Dr Nolasco either tonight or early tomorrow morning. Keppra [address] Head 02/17/18---> acute SDH 1.7-1.9cm in size per report with mass effect and right to left shift. Hypertensive Urgency: Labetalol gtt 120 mls/hr Hypothyroidism: -Levothyroxine 50 mcg PO Daily FEN No Fluids Monitor Electrolytes NPO DVT ppx: SCD's Dispo: Monitor in ICU. Neurosurgical evac tomorrow. BP control: goal 140-160, unless symptoms of hypoperfusion with lowering Visit type - Emergency Visit Emergency Visit: Yes ED Registration Date: 02/16/18 Care time: The patient presented to the Emergency Department on the above date and was hospitalized for further evaluation of their emergent condition. - New Patient This patient is new to me today: Yes Date on this admission: 02/17/18 - Critical Care Critical Care patient: Yes Total Critical Care Time (in minutes): 37 Critical Care Statement: The care of this patient involved high complexity decision making to prevent further life threatening deterioration of the patient 's condition and/or to evaluate & treat vital organ system(s) failure or risk of failure.
[2018-02-17] MEDS ORDERED: PT OWN MED DRAWER 7, Y5N ONE (21:00)
[2018-02-17] MEDS: BRIMONIDINE TARTRATE 0.2% OPHTHALMIC 5 ML BOTTLE OD SCH (21:45)
[2018-02-17] MEDS: TIMOLOL 0.5% OPHTHALMIC SOL 5 ML BOTTLE OD SCH (21:46)
[2018-02-17] MEDS ORDERED: LIDOCAINE PATCH REMOVAL MC SCH ×2 (22:00)
[2018-02-17 22:02] LABS: INR 1.35 (0.82-1.09); PROTHROMBIN TIME (PATIENT) 15.2 SEC (9.7-13.0)
[2018-02-17 22:21] LABS: BASO % 0.3 % (0-2.0); EOS % 1.1 % (0-4.5); HEMATOCRIT 36.4 % (35.4-49); HEMOGLOBIN 12.5 GM/dL (11.7-16.9); LYMPH % 18.5 % (8-40); MCH 29.8 pg (25.7-33.7); MCHC 34.3 g/dl (32.0-35.9); MEAN CELL VOLUME 86.8 fl (80-96); MEAN PLT VOLUME 6.9 fl (7.5-11.1); MONO % 11.8 % (3.8-10.2); NEUT % 68.3 % (42.8-82.8); PLATELET COUNT 216 K/MM3 (134-434); RBC 4.19 M/mm3 (4.00-5.60); RDW 13.8 % (11.9-15.9)
[2018-02-17 22:42] LABS: TRIGLYCERIDES 114 mg/dL (35-160)
[2018-02-17 22:44] LABS: CHOLESTEROL 173 mg/dL (50-200)
[2018-02-18 05:58] LABS: BASO % 0.4 % (0-2.0); EOS % 2.2 % (0-4.5); HEMATOCRIT 33.1 % (35.4-49); HEMOGLOBIN 11.5 GM/dL (11.7-16.9); LYMPH % 24.4 % (8-40); MCH 29.9 pg (25.7-33.7); MCHC 34.8 g/dl (32.0-35.9); MONO % 12.3 % (3.8-10.2); NEUT % 60.7 % (42.8-82.8); PLATELET COUNT 189 K/MM3 (134-434); RBC 3.85 M/mm3 (4.00-5.60); RDW 13.9 % (11.9-15.9); WHITE BLOOD COUNT 8.1 K/mm3 (4.0-10.0)
[2018-02-18 06:33] LABS: ALBUMIN 3.5 g/dl (3.4-5.0); ANION GAP 8 (8-16); BLOOD UREA NITROGEN 27 mg/dL (7-18); CALCIUM 8.6 mg/dL (8.5-10.1); CHLORIDE 108 mmol/L (98-107); CO2 27 mmol/L (21-32); GLUCOSE,RANDOM 81 mg/dL (74-106); POTASSIUM 3.8 mmol/L (3.5-5.1); SODIUM 143 mmol/L (136-145)
[2018-02-18 06:36] LABS: ALK PHOS 56 U/L (45-117); BILIRUBIN,TOTAL 0.8 mg/dL (0.2-1.0); CREATININE 2.1 mg/dL (0.7-1.3); SGOT/AST 13 U/L (15-37); SGPT/ALT 12 U/L (12-78); TOT PROT 6.2 g/dl (6.4-8.2)
[2018-02-18] MEDS: GABAPENTIN 100 MG CAPSULE (FP) PO SCH ×3 (06:47→21:28)
[2018-02-18] MEDS ORDERED: LEVOTHYROXINE NA 50 MCG TABLET (FP) PO SCH (07:00)
--- NOTE | 2018-02-18 09:15 | PN ---
Progress Note (short form) - Note Progress Note: Neurology History of Present Illness Initial Comments: 87 YOM with h/o HTN, hypothyroidism, CAD, AAA with repair earlier this year, and chronic lumbar back pain and spinal stenosis noted on imaging 3 years ago, who presented to the ED with increased chronic low back pain for the past 4 days with worsening of his chronic BLE weakness. His attempted to get him up from his bed but would not get up, which is abnormal for him. He stated his legs were too weak to stand or walk. He was admitted to the hospital and CT L spine showed degenerative changes. On night of admission, noted to have altered mental status and CT head completed which I reviewed and showed acute SDH 1.7- 1.9cm in size per report with mass effect and right to left shift. NSGY consulted, reportedly for surgical intervention per resident notes. Remains ICU and under close monitoring. BPs during my visit were >160 systolic, advised tighter control, goal <140 now. Discussed with residents. Started on Keppra 750mg twice daily given large size of blood products. No seizure events. Is more awake and alert for me today. Able to tell me he's in the hospital. Was not aware of date. Active Medications Acetaminophen (Tylenol -) 650 mg PO Q6H PRN PRN Reason: FEVER Brimonidine Tartrate (Alphagan 0.2% -) [address] [facility] Last Admin: 02/17/18 21:45 Dose: 1 drop Gabapentin (Neurontin -) [address] [facility] Last Admin: 02/18/18 06:47 Dose: Not Given Labetalol HCl 1,000 mg/ Sodium (Chloride) 1,000 mls @ 120 mls/hr IV TITR [facility] Last Infusion: 02/17/18 13:30 Dose: 0 mg/min, 0 mls/hr Levetiracetam (Keppra Injection -) [address] [facility] Last Admin: 02/17/18 21:58 Dose: 750 mg Levothyroxine Sodium (Synthroid -) 50 mcg PO DAILY@0700 [facility] Last Admin: 02/18/18 06:47 Dose: Not Given Lidocaine (Lidoderm Patch -) [address] [facility] Miscellaneous (Lidoderm Patch Removal) 1 each MC DAILY@2200 [facility] Last Admin: 02/17/18 21:45 Dose: 1 each Timolol Maleate (Timoptic 0.5%) 1 drop OD BID [facility] Last Admin: 02/17/18 21:46 Dose: 1 drop Tramadol HCl (Ultram -) 50 mg PO Q6H PRN PRN Reason: PAIN LEVEL 4 - 6 *Physical Exam Vital Signs Period Temp Pulse Resp BP Sys/Michel Pulse Ox Last 24 Hr 97.8 F-98.6 F 47-66 8-18 140-172/48-83 100-100 - Physical Exam General Appearance: Yes: Nourished, Appropriately Dressed, Not answering questions, somnolent HEENT: positive: EOMI, Normal Voice, Hearing Grossly Normal, Other (right pupil round and reactive to light, left pupil fixed dilated nonreactive stated chronic d/t multiple surgeries and eye injury). negative: Scleral Icterus (R), Scleral Icterus (L), Nasal Congestion Neck: positive: Trachea midline, Supple. negative: Tender, Rigid Respiratory/Chest: positive: Lungs Clear, Normal Breath Sounds. negative: Respiratory Distress, Crackles, Rhonchi, Stridor, Wheezing Cardiovascular: positive: Regular Rhythm, Regular Rate. negative: Edema, JVD, Murmur Gastrointestinal/Abdominal: positive: Normal Bowel Sounds, Soft. negative: Tender, Organomegaly, Pulsatile Mass, Guarding Musculoskeletal: positive: Normal Inspection. negative: Decreased Range of Motion, Vertebral Tenderness Extremity: positive: Normal Capillary Refill, Normal Inspection, Normal Range of Motion. negative: Tender, Cyanosis Integumentary: positive: Normal Color, Dry, Warm. negative: Erythema, Rash, Bruising Neurologic: No facial droop, responds to voice, sensory intact to tactile stim , moves extremities but not participating in confrontation testing CBCD WBC 8.1 K/mm3 (4.0-10.0) 02/18/18 05:30 RBC 3.85 M/mm3 (4.00-5.60) L 02/18/18 05:30 Hgb 11.5 GM/dL (11.7-16.9) L 02/18/18 05:30 Hct 33.1 % (35.4-49) L 02/18/18 05:30 MCV 86.0 fl (80-96) 02/18/18 05:30 MCHC 34.8 g/dl (32.0-35.9) 02/18/18 05:30 RDW 13.9 % (11.9-15.9) 02/18/18 05:30 Plt Count 189 K/MM3 (134-434) 02/18/18 05:30 MPV 7.0 fl (7.5-11.1) L 02/18/18 05:30 CMP Sodium 143 mmol/L (136-145) 02/18/18 05:30 Potassium 3.8 mmol/L (3.5-5.1) 02/18/18 05:30 Chloride 108 mmol/L (98-107) H 02/18/18 05:30 Carbon Dioxide 27 mmol/L (21-32) 02/18/18 05:30 Anion Gap 8 (8-16) 02/18/18 05:30 BUN 27 mg/dL (7-18) H 02/18/18 05:30 Creatinine 2.1 mg/dL (0.7-1.3) H 02/18/18 05:30 Creat Clearance w eGFR 30.02 (>60) 02/18/18 05:30 Calcium 8.6 mg/dL (8.5-10.1) 02/18/18 05:30 Total Bilirubin 0.8 mg/dL (0.2-1.0) 02/18/18 05:30 AST 13 U/L (15-37) L D 02/18/18 05:30 ALT 12 U/L (12-78) 02/18/18 05:30 Alkaline Phosphatase 56 U/L (45-117) D 02/18/18 05:30 Total Protein 6.2 g/dl (6.4-8.2) L 02/18/18 05:30 Albumin 3.5 g/dl (3.4-5.0) 02/18/18 05:[address] L spine reviewed Medical Decision Making 87 YOM with h/o HTN, hypothyroidism, CAD, AAA with repair earlier this year, and chronic lumbar back pain and spinal stenosis noted on imaging 3 years ago, who presented to the ED with increased chronic low back pain for the past 4 days with worsening of his chronic BLE weakness. His attempted to get him up from his bed but would not get up, which is abnormal for him. He stated his legs were too weak to stand or walk. He was admitted to the hospital and CT L spine showed degenerative changes. On night of admission, noted to have altered mental status and CT head completed which I reviewed and showed acute SDH 1.7- 1.9cm in size per report with mass effect and right to left shift. NSGY consulted, reportedly for surgical intervention per resident notes. Remains ICU and under close monitoring. BPs during my visit were >160 systolic, advised tighter control, goal <140 now. Discussed with residents. Started on Keppra 750mg twice daily given large size of blood products. No seizure events. Is more awake and alert for me today. Able to tell me he's in the hospital. Was not aware of date. Hold any antiplatelet medication (on ASA, Plavix at home) Defer to NSGY regarding operative mgmt if indicated. Continue close monitoring, stat CT head for any deterioration in mental status. Monitor airway protection, intubation if required. Critical care 40 mins.
--- NOTE | 2018-02-18 09:25 | CONSULT ---
Consult - text type - Consultation Consultation Note: NEUROSURGERY CONSULTATION Donta Kamara is an 87 year old male who presented to the [facility] ER yesterday with a 4 day history of altered mental status. On examination, he is sleeping, but awakens to voice. He is confused and does not answer questions, although he acknowledges his name. He is able to follow complex commands with some coaxing and has a Right Pronator drift. CT Head reveals a 1.9 cm Left subacute Subdural hematoma with a fluid level. He is not known to be taking any anticoagulation and while this may represent the appearance of a hyperacute Subdural hematoma in a fully anticoagulated patient, the history, time course and medical record all strongly suggest a subacute subdural hematoma which is liquifying. There appears to be a membrane between the hematoma and the pial surface and there is CSF within sulci adjacent to the hematoma and no underlying edema which is a positive prognostic sign. Although irregular, the hematoma does not appear to be multiloculated. The patient has 8 mm of midline shift. The risks, benefits and alternatives to craniotomy and evacuation of the hematoma were discussed with the medical team and the patient' s significant other who consent to surgery. All questions were answered.
[2018-02-18] MEDS: TIMOLOL 0.5% OPHTHALMIC SOL 5 ML BOTTLE OD SCH ×2 (09:29→21:27)
[2018-02-18] MEDS: BRIMONIDINE TARTRATE 0.2% OPHTHALMIC 5 ML BOTTLE OD SCH ×2 (09:30→21:27)
[2018-02-18] MEDS: LABETALOL HCL INJECTION 1,000 MG in SODIUM CHLORIDE 800 ML IV SCH (09:34)
[2018-02-18] MEDS: LIDOCAINE 5% TOPICAL PATCH TP SCH ×2 (09:36→10:00)
[2018-02-18] MEDS: levETIRAcetam 500 MG/5 ML INJECTION VIAL IVPB SCH ×2 (09:36→21:28)
[2018-02-18] MEDS ORDERED: GENTAMICIN SO4 80 MG/2 ML VIAL ONE (09:42)
[2018-02-18] MEDS ORDERED: LIDOCAINE 1%/EPI 1:100000 (20 ML MULTI DOSE VIAL) ONE (09:42)
[2018-02-18] MEDS ORDERED: BUPIVACAINE HCL/PF 0.5% (5MG/ML) 10 ML VIAL ONE (09:43)
[2018-02-18] MEDS ORDERED: THROMBIN (BOVINE) 20,000 UNIT VIAL TP ONE (09:43)
--- NOTE | 2018-02-18 10:32 | PN ---
Progress Note, Physician Chief Complaint: Undergoing PT no distress awaiting to go to OR for craniotomy Found to have altered mentation on the floors-- CT head showed SDH - Current Medication List Current Medications: Active Medications Acetaminophen (Tylenol -) 650 mg PO Q6H PRN PRN Reason: FEVER Brimonidine Tartrate (Alphagan 0.2% -) 1 drop OD BID [facility] Last Admin: 02/18/18 09:30 Dose: 1 drop Gabapentin (Neurontin -) 100 mg PO TID [facility] Last Admin: 02/18/18 06:47 Dose: Not Given Labetalol HCl 1,000 mg/ Sodium (Chloride) 1,000 mls @ 120 mls/hr IV TITR [facility] Last Admin: 02/18/18 09:34 Dose: Not Given Levetiracetam (Keppra Injection -) 750 mg IVPB BID [facility] Last Admin: 02/18/18 09:36 Dose: 750 mg Levothyroxine Sodium (Synthroid -) 50 mcg PO DAILY@0700 [facility] Last Admin: 02/18/18 06:47 Dose: Not Given Lidocaine (Lidoderm Patch -) 1 patch TP DAILY [facility] Last Admin: 02/18/18 09:36 Dose: 1 patch Miscellaneous (Lidoderm Patch Removal) 1 each MC DAILY@2200 [facility] Last Admin: 02/17/18 21:45 Dose: 1 each Timolol Maleate (Timoptic 0.5%) 1 drop OD BID [facility] Last Admin: 02/18/18 09:29 Dose: 1 drop Tramadol HCl (Ultram -) 50 mg PO Q6H PRN PRN Reason: PAIN LEVEL 4 - 6 - Objective Vital Signs: Vital Signs Temperature 97.8 F 02/18/18 02:00 Pulse Rate 50 L 02/18/18 09:34 Respiratory Rate 13 02/18/18 09:00 Blood Pressure 155/68 02/18/18 09:34 O2 Sat by Pulse Oximetry (%) 100 02/18/18 08:06 Constitutional: Yes: No Distress, Calm Cardiovascular: Yes: Regular Rate and Rhythm Respiratory: Yes: CTA Bilaterally Gastrointestinal: Yes: Normal Bowel Sounds, Soft. No: Tenderness Edema: No Labs: CBC, BMP 02/18/18 05:30 02/18/18 05:30 INR, PTT INR 1.35 (0.82-1.09) H 02/17/18 21:15 Problem List - Problems (1) Subdural hemorrhage Code(s): I62.00 - NONTRAUMATIC SUBDURAL HEMORRHAGE, UNSPECIFIED (2) CAD (coronary artery disease) Code(s): I25.10 - ATHSCL HEART DISEASE OF [place] CORONARY ARTERY W/O ANG PCTRS Qualifiers: [place] vs. transplanted heart: [place] heart Associated angina: without angina (3) HTN (hypertension) Code(s): I10 - ESSENTIAL (PRIMARY) HYPERTENSION (4) Hypothyroid Code(s): E03.9 - HYPOTHYROIDISM, UNSPECIFIED Qualifiers: Hypothyroidism type: other Qualified Code(s): E03.8 - Other specified hypothyroidism (5) Metabolic encephalopathy Code(s): G93.41 - METABOLIC ENCEPHALOPATHY Assessment/Plan PLAN For OR today Neurosurgery eval noted post op ICU continue with current care Spoke with ICU team
--- NOTE | 2018-02-18 11:41 | PN ---
Teaching Attending Note Name of Resident: Farhan Armijo ATTENDING PHYSICIAN STATEMENT I saw and evaluated the patient. I reviewed the resident's note and discussed the case with the resident. I agree with the resident's findings and plan as documented. SUBJECTIVE: Patient seen and examined in the ICU. Awake and interactive but mildly confused. Denies CP or SOB. Denies DUEÑAS, BOV, dizziness, etc. Neuro exam unchanged. Intake & Output 02/15/18 02/16/18 02/17/18 02/18/18 23:59 23:59 23:59 23:59 Intake Total 150 1400 120 Output Total 1550 75 Balance 150 -150 45 Weight 126 lb 15.992 oz 127 lb Last Vital Signs Temp Pulse Resp BP Pulse Ox 98.1 F 54 L 15 149/46 100 02/18/18 10:00 02/18/18 11:00 02/18/18 11:00 02/18/18 11:00 02/18/18 08:06 Active Medications Acetaminophen (Tylenol -) 650 mg PO Q6H PRN PRN Reason: FEVER Brimonidine Tartrate (Alphagan 0.2% -) 1 drop OD BID [facility] Last Admin: 02/18/18 09:30 Dose: 1 drop Gabapentin (Neurontin -) 100 mg PO TID [facility] Last Admin: 02/18/18 06:47 Dose: Not Given Labetalol HCl 1,000 mg/ Sodium (Chloride) 1,000 mls @ 120 mls/hr IV TITR [facility] Last Admin: 02/18/18 09:34 Dose: Not Given Levetiracetam (Keppra Injection -) 750 mg IVPB BID [facility] Last Admin: 02/18/18 09:36 Dose: 750 mg Levothyroxine Sodium (Synthroid -) 50 mcg PO DAILY@0700 [facility] Last Admin: 02/18/18 06:47 Dose: Not Given Lidocaine (Lidoderm Patch -) 1 patch TP DAILY [facility] Last Admin: 02/18/18 09:36 Dose: 1 patch Miscellaneous (Lidoderm Patch Removal) 1 each MC DAILY@2200 [facility] Last Admin: 02/17/18 21:45 Dose: 1 each Timolol Maleate (Timoptic 0.5%) 1 drop OD BID [facility] Last Admin: 02/18/18 09:29 Dose: 1 drop Tramadol HCl (Ultram -) 50 mg PO Q6H PRN PRN Reason: PAIN LEVEL 4 - 6 General Appearance: Yes: Awake and alert, NAD HEENT: (-) Pallor, left pupillary changes, (-) Icterus Neck: positive: Trachea midline, Supple. negative: Tender, Rigid Respiratory/Chest: positive: Clear, (-) Crackles, Wheezing Cardiovascular: positive: Regular Rhythm, Regular Rate. negative: Edema, JVD, Murmur Gastrointestinal/Abdominal: positive: Normal Bowel Sounds, Soft. negative: Organomegaly, Pulsatile Mass, Guarding Musculoskeletal: positive: Normal Inspection. negative: Decreased Range of Motion, Vertebral Tenderness Extremity: positive: Normal Capillary Refill, Normal Inspection, Normal Range of Motion. negative: Tender, Cyanosis Integumentary: positive: Normal Color, Dry, Warm. negative: Erythema, Rash, Bruising Neurologic: No facial droop, non-focal Laboratory Results - last 24 hr 02/17/18 02/17/18 02/17/18 18:23 21:15 21:45 WBC RBC Hgb Hct MCV MCH MCHC RDW Plt Count MPV Absolute Neuts (auto) Neutrophils % Lymphocytes % Monocytes % Eosinophils % Basophils % Nucleated RBC % PT with INR 15.20 H INR 1.35 H Sodium Potassium Chloride Carbon Dioxide Anion Gap BUN Creatinine Creat Clearance w eGFR POC Glucometer 95.32484 Random Glucose Calcium Phosphorus Magnesium Total Bilirubin AST ALT Alkaline Phosphatase Creatine Kinase 49 Troponin I < 0.02 Total Protein Albumin Triglycerides Cholesterol 173 Total LDL Cholesterol Blood Type Antibody Screen 02/17/18 02/17/18 02/17/18 21:45 21:45 21:45 WBC 8.0 RBC 4.19 Hgb 12.5 Hct 36.4 MCV 86.8 MCH 29.8 MCHC 34.3 RDW 13.8 Plt Count 216 MPV 6.9 L Absolute Neuts (auto) 5.5 Neutrophils % 68.3 Lymphocytes % 18.5 D Monocytes % 11.8 H Eosinophils % 1.1 Basophils % 0.3 Nucleated RBC % 0 PT with INR INR Sodium Potassium Chloride Carbon Dioxide Anion Gap BUN Creatinine Creat Clearance w eGFR POC Glucometer Random Glucose Calcium Phosphorus Magnesium Total Bilirubin AST ALT Alkaline Phosphatase Creatine Kinase Troponin I Total Protein Albumin Triglycerides 114 Cholesterol Total LDL Cholesterol 116 H Blood Type O NEGATIVE Antibody Screen Negative 02/18/18 02/18/18 05:30 05:30 WBC 8.1 RBC 3.85 L Hgb 11.5 L Hct 33.1 L MCV 86.0 MCH 29.9 MCHC 34.8 RDW 13.9 Plt Count 189 MPV 7.0 L Absolute Neuts (auto) 4.9 Neutrophils % 60.7 Lymphocytes % 24.4 D Monocytes % 12.3 H Eosinophils % 2.2 D Basophils % 0.4 Nucleated RBC % 0 PT with INR INR Sodium 143 Potassium 3.8 Chloride 108 H Carbon Dioxide 27 Anion Gap 8 BUN 27 H Creatinine 2.1 H Creat Clearance w eGFR 30.02 POC Glucometer Random Glucose 81 Calcium 8.6 Phosphorus 4.0 D Magnesium 2.0 Total Bilirubin 0.8 AST 13 L D ALT 12 Alkaline Phosphatase 56 D Creatine Kinase Troponin I Total Protein 6.2 L Albumin 3.5 Triglycerides Cholesterol Total LDL Cholesterol Blood Type Antibody Screen IMP: Acute Left SDH 1.7-1.9 cm mass effect and shift. HTN Hypothyroidism AAA CAD PLAN: For OR today Follow Neuro exam O2 as needed Aspiration precautions SCDs Tiny BP monitoring: keep below [address] Pinedo Critical care time spent in reviewing chart, evaluating patient and formulating plan - 36 minutes.
[2018-02-18] MEDS ORDERED: ROCURONIUM BROMIDE 50 MG/5 ML VIAL ONE ×2 (11:49→13:21)
[2018-02-18] MEDS ORDERED: PROPOFOL 20 ML ONE ×5 (11:49)
[2018-02-18] MEDS ORDERED: fentaNYL CITRATE 250 MCG/5 ML VIAL ONE (11:49)
[2018-02-18] MEDS ORDERED: SUCCINYLCHOLINE CHLORIDE 200 MG/10 ML VIAL ONE (11:50)
[2018-02-18] MEDS ORDERED: LIDOCAINE HCL/PF 2% SDV 5ML VIAL ONE (11:53)
[2018-02-18 12:48] LABS: URINE APPEARANCE CLEAR; URINE BILIRUBIN NEGATIVE (<2.0 mg/dL); URINE COLOR DKYELLOW; URINE GLUCOSE (UA) NEGATIVE (NEGATIVE); URINE KETONE NEGATIVE (NEGATIVE); URINE LEUK ESTERASE 1+ (NEGATIVE); URINE NITRITE NEGATIVE (NEGATIVE); URINE PROTEIN 2+ (NEGATIVE); URINE UROBILINOGEN NEGATIVE mg/dL (0.2-1.0)
[2018-02-18 12:50] LABS: URINE HYALINE CAST 1 /lpf; URINE MUCUS RARE
[2018-02-18] MEDS ORDERED: ePHEDrine SULFATE 50 MG/1 ML AMPULE ONE (13:01)
[2018-02-18] MEDS ORDERED: VANCOMYCIN 1,000 MG VIAL (RESTRICTED TO ID ONLY) ONE (13:03)
[2018-02-18] MEDS ORDERED: ceFAZolin SODIUM 1 GM VIAL ONE ×2 (13:03→20:34)
[2018-02-18] MEDS ORDERED: ceFAZolin SODIUM 1 GM VIAL IVPB ONE (13:06)
[2018-02-18] MEDS ORDERED: VANCOMYCIN 1,000 MG VIAL (RESTRICTED TO ID ONLY) IVPB ONE ×2 (13:07)
[2018-02-18] MEDS ORDERED: THROMBIN (BOVINE) 5,000 UNIT VIAL TP ONE (13:19)
[2018-02-18] MEDS ORDERED: DEXAMETHASONE SOD PHOSPHATE 4 MG/1 ML VIAL ONE (13:21)
[2018-02-18] MEDS ORDERED: NEOSTIGMINE METHYLSULFATE 0.5 MG/ML - 10 ML MDV ONE (13:42)
[2018-02-18] MEDS ORDERED: LIDOCAINE HCL 1%, 10 MG/ML (20ML VIAL) INF ONE (14:00)
[2018-02-18] MEDS ORDERED: ONDANSETRON 4 MG/2 ML VIAL ONE (14:06)
[2018-02-18] MEDS ORDERED: LABETALOL HCL 5 MG/1 ML (100MG/20 ML VIAL) ONE (14:35)
[2018-02-18] MEDS ORDERED: ACETAMINOPHEN 1000 MG/100 ML VIAL (NON FORMULARY) IVPB PRN (14:51)
--- NOTE | 2018-02-18 14:57 | OP ---
Operative Note - Note: Operative Date: 02/18/18 Pre-Operative Diagnosis: left subdural hematoma Operation: craniotomy and evaucation of hematoma Surgeon: Judd Nolasco Steel Pourer: Miriam Carroll Anesthesiologist/ELECTRICAL ENGINEERING DRAFTSPERSON: Alexandria Trimble Anesthesia: General Estimated Blood Loss (mls): 30 Drains, Volume Out (mls): 200 (sotelo) Fluid Volume Replaced (mls): 1,700 Operative Report Dictated: Yes
--- NOTE | 2018-02-18 15:13 | SURG ---
Surgery Health Club Manager Note Health Club Manager: Miriam Carroll PA-C Date of Service: 02/18/18 Diagnosis: left subdural hematoma Procedure: craniotomy and evacuation of hematoma I was present for the entirety of the operative procedure. For further detail, please refer to operative report. Visit type - Case Type Case Type: ED Admission - Emergency Emergency Visit: Yes ED Registration Date: 02/16/18 Care time: The patient presented to the Emergency Department on the above date and was hospitalized for further evaluation of their emergent condition. - New patient This patient is new to me today: Yes Date on this admission: 02/18/18
[2018-02-18] MEDS: SODIUM CHLORIDE 1,000 ML IV SCH (15:35)
--- NOTE | 2018-02-18 16:44 | PN ---
Physical Exam: SUBJECTIVE: Patient seen and examined today in icu. Pt resting in bed, S/P subdural evacuation. Incoherent. OBJECTIVE: Vital Signs Period Temp Pulse Resp BP Sys/Michel Pulse Ox Last 24 Hr 97.7 F-98.5 F 47-74 8-17 136-184/33-94 100-100 GENERAL: Not oriented to place or time. HEAD: NC/AT EYES: EOMI. ENT: MMM NECK: Supple. LUNGS: CTA B/L. HEART: RRR ABDOMEN: ND, NT, No HSM. EXTREMITIES: No CCE NEUROLOGICAL: PSYCH: Normal mood, normal affect. SKIN: Warm, pale. Laboratory Results - last 24 hr 02/17/18 02/17/18 02/17/18 18:23 21:15 21:45 WBC RBC Hgb Hct MCV MCH MCHC RDW Plt Count MPV Absolute Neuts (auto) Neutrophils % Lymphocytes % Monocytes % Eosinophils % Basophils % Nucleated RBC % PT with INR 15.20 H INR 1.35 H Sodium Potassium Chloride Carbon Dioxide Anion Gap BUN Creatinine Creat Clearance w eGFR POC Glucometer 95.03784 Random Glucose Calcium Phosphorus Magnesium Total Bilirubin AST ALT Alkaline Phosphatase Creatine Kinase 49 Troponin I < 0.02 Total Protein Albumin Triglycerides Cholesterol 173 Total LDL Cholesterol Urine Color Urine Appearance Urine pH Ur Specific [place] Urine Protein Urine Glucose (UA) Urine Ketones Urine Blood Urine Nitrite Urine Bilirubin Urine Urobilinogen Ur Leukocyte Esterase Urine WBC (Auto) Urine RBC (Auto) Hyaline Casts Urine Mucus Blood Type Antibody Screen 02/17/18 02/17/18 02/17/18 21:45 21:45 21:45 WBC 8.0 RBC 4.19 Hgb 12.5 Hct 36.4 MCV 86.8 MCH 29.8 MCHC 34.3 RDW 13.8 Plt Count 216 MPV 6.9 L Absolute Neuts (auto) 5.5 Neutrophils % 68.3 Lymphocytes % 18.5 D Monocytes % 11.8 H Eosinophils % 1.1 Basophils % 0.3 Nucleated RBC % 0 PT with INR INR Sodium Potassium Chloride Carbon Dioxide Anion Gap BUN Creatinine Creat Clearance w eGFR POC Glucometer Random Glucose Calcium Phosphorus Magnesium Total Bilirubin AST ALT Alkaline Phosphatase Creatine Kinase Troponin I Total Protein Albumin Triglycerides 114 Cholesterol Total LDL Cholesterol 116 H Urine Color Urine Appearance Urine pH Ur Specific [place] Urine Protein Urine Glucose (UA) Urine Ketones Urine Blood Urine Nitrite Urine Bilirubin Urine Urobilinogen Ur Leukocyte Esterase Urine WBC (Auto) Urine RBC (Auto) Hyaline Casts Urine Mucus Blood Type O NEGATIVE Antibody Screen Negative 02/18/18 02/18/18 02/18/18 05:30 05:30 11:30 WBC 8.1 RBC 3.85 L Hgb 11.5 L Hct 33.1 L MCV 86.0 MCH 29.9 MCHC 34.8 RDW 13.9 Plt Count 189 MPV 7.0 L Absolute Neuts (auto) 4.9 Neutrophils % 60.7 Lymphocytes % 24.4 D Monocytes % 12.3 H Eosinophils % 2.2 D Basophils % 0.4 Nucleated RBC % 0 PT with INR INR Sodium 143 Potassium 3.8 Chloride 108 H Carbon Dioxide 27 Anion Gap 8 BUN 27 H Creatinine 2.1 H Creat Clearance w eGFR 30.02 POC Glucometer Random Glucose 81 Calcium 8.6 Phosphorus 4.0 D Magnesium 2.0 Total Bilirubin 0.8 AST 13 L D ALT 12 Alkaline Phosphatase 56 D Creatine Kinase Troponin I Total Protein 6.2 L Albumin 3.5 Triglycerides Cholesterol Total LDL Cholesterol Urine Color Dkyellow Urine Appearance Clear Urine pH 5.0 D Ur Specific [place] 1.024 Urine Protein 2+ H Urine Glucose (UA) Negative Urine Ketones Negative Urine Blood Negative Urine Nitrite Negative Urine Bilirubin Negative Urine Urobilinogen Negative Ur Leukocyte Esterase 1+ H Urine WBC (Auto) 38 Urine RBC (Auto) 7 Hyaline Casts 1 Urine Mucus Rare Blood Type Antibody Screen Active Medications Generic Name Dose Route Start Last Admin Trade Name Freq PRN Reason Stop Dose Admin Acetaminophen 650 mg 02/17/18 10:19 Tylenol - PO Q6H PRN FEVER Acetaminophen 1,000 mg 02/18/18 14:51 Ofirmev Injection - IVPB Q6H PRN PAIN LEVEL 1 - 3 Brimonidine Tartrate 1 drop 02/17/18 22:00 02/18/18 09:30 Alphagan 0.2% - OD 1 drop BID [facility] Administration Chlorhexidine Gluconate 1 applic 02/18/18 22:00 Hibiclens For Decolonization - TP HS [facility] Gabapentin 100 mg 02/17/18 14:00 02/18/18 14:00 Neurontin - PO Not Given TID [facility] Labetalol HCl 1,000 mg/ Sodium 1,000 mls @ 120 mls/hr 02/17/18 08:45 09:34 Chloride IV Not Given TITR [facility] 2 MG/MIN Sodium Chloride 1,000 mls @ 75 mls/hr 02/18/18 15:00 02/18/18 15:35 Normal Saline - IV 75 mls/hr ASDIR [facility] Administration Cefazolin Sodium 1 gm/ 50 mls @ 100 mls/hr 02/18/18 21:00 Dextrose IVPB 02/19/18 05:29 Q8H [facility] Levetiracetam 750 mg 02/17/18 10:00 02/18/18 09:36 Keppra Injection - IVPB 750 mg BID [facility] Administration Levothyroxine Sodium 50 mcg 02/18/18 07:00 02/18/18 06:47 Synthroid - PO Not Given DAILY@0700 [facility] Lidocaine 1 patch 02/18/18 10:00 02/18/18 09:36 Lidoderm Patch - TP 1 patch DAILY [facility] Administration Miscellaneous 1 each 02/17/18 22:00 02/17/18 21:45 Lidoderm Patch Removal MC 1 each DAILY@2200 [facility] Administration Morphine Sulfate 2 mg 02/18/18 14:52 Morphine Sulfate IVPUSH Q4H PRN PAIN LEVEL 1-5 Mupirocin 1 applic 02/18/18 22:00 Bactroban Ointment (For Decolonization) - NS 02/23/18 21:59 BID [facility] Timolol Maleate 1 drop 02/17/18 22:00 02/18/18 09:29 Timoptic 0.5% OD 1 drop BID [facility] Administration Tramadol HCl 50 mg 02/17/18 10:19 Ultram - PO Q6H PRN PAIN LEVEL 4 - 6 ASSESSMENT/PLAN: 87 y/o gentleman with a PMH of HTN, Dementia, HLD, 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 Neuro- Disoriented Neurosurgery on board. Pt s/p subdural hematoma evacuated by Dr Nolasco this afternoon. Keppra [address] Head 02/17/18---> acute SDH 1.7-1.9cm in size per report with mass effect and right to left shift. Hypertensive Urgency: Labetalol gtt 120 mls/hr I.D Cefazolin Sodium 1 gm/ 50 mls @ 100 mls/hr IVPB Q8H Hypothyroidism: -Levothyroxine 50 mcg PO Daily FEN Normal Saline Monitor Electrolytes NPO DVT ppx: SCD's Dispo: Monitor in ICU. Visit type - Emergency Visit Emergency Visit: Yes ED Registration Date: 02/16/18 Care time: The patient presented to the Emergency Department on the above date and was hospitalized for further evaluation of their emergent condition. - New Patient This patient is new to me today: No - Critical Care Critical Care patient: Yes Total Critical Care Time (in minutes): 35 Critical Care Statement: The care of this patient involved high complexity decision making to prevent further life threatening deterioration of the patient 's condition and/or to evaluate & treat vital organ system(s) failure or risk of failure.
--- NOTE | 2018-02-18 16:50 | PN ---
Progress Note (short form) - Note Progress Note: Renal follow up for MALINDA/CKD Pt seen and examined in the ICU S/P subdural evacuation. awake but confused making urine not able to provide ROS Vital Signs Temperature 97.8 F 02/18/18 16:28 Pulse Rate 78 02/18/18 16:28 Respiratory Rate 20 02/18/18 16:28 Blood Pressure 172/80 02/18/18 16:28 O2 Sat by Pulse Oximetry (%) 100 02/18/18 08:06 Intake & Output 02/15/18 02/16/18 02/17/18 02/18/18 23:59 23:59 23:59 23:59 Intake Total 150 1400 120 Output Total 1550 825 Balance 150 -150 -705 Weight 57.606 kg 57.606 kg NAD dressing over head Neck supple, no JVD RRR, no M/R no rales soft NT/ND no LE edema, clubbing or cyanosis CBC, BMP 02/18/18 05:30 02/18/18 05:30 Current Medications Acetaminophen (Tylenol -) 650 mg PO Q6H PRN PRN Reason: FEVER Acetaminophen (Ofirmev Injection -) 1,000 mg IVPB Q6H PRN PRN Reason: PAIN LEVEL 1 - 3 Brimonidine Tartrate (Alphagan 0.2% -) 1 drop OD BID [facility] Last Admin: 02/18/18 09:30 Dose: 1 drop Chlorhexidine Gluconate (Hibiclens For Decolonization -) 1 applic TP HS [facility] Gabapentin (Neurontin -) 100 mg PO TID [facility] Last Admin: 02/18/18 14:00 Dose: Not Given Labetalol HCl 1,000 mg/ Sodium (Chloride) 1,000 mls @ 120 mls/hr IV TITR [facility] Last Admin: 02/18/18 09:34 Dose: Not Given Sodium Chloride (Normal Saline -) 1,000 mls @ 75 mls/hr IV ASDIR [facility] Last Admin: 02/18/18 15:35 Dose: 75 mls/hr Cefazolin Sodium 1 gm/ (Dextrose) 50 mls @ 100 mls/hr IVPB Q8H [facility] Stop: 02/19/18 05:29 Levetiracetam (Keppra Injection -) 750 mg IVPB BID [facility] Last Admin: 07/24/18 09:36 Dose: 750 mg Levothyroxine Sodium (Synthroid -) 50 mcg PO DAILY@0700 [facility] Last Admin: 02/18/18 06:47 Dose: Not Given Lidocaine (Lidoderm Patch -) 1 patch TP DAILY [facility] Last Admin: 02/18/18 09:36 Dose: 1 patch Miscellaneous (Lidoderm Patch Removal) 1 each MC DAILY@2200 [facility] Last Admin: 02/17/18 21:45 Dose: 1 each Morphine Sulfate (Morphine Sulfate) 2 mg IVPUSH Q4H PRN PRN Reason: PAIN LEVEL 1-5 Mupirocin (Bactroban Ointment (For Decolonization) -) 1 applic NS BID [facility] Stop: 02/23/18 21:59 Timolol Maleate (Timoptic 0.5%) 1 drop OD BID [facility] Last Admin: 02/18/18 09:29 Dose: 1 drop Tramadol HCl (Ultram -) 50 mg PO Q6H PRN PRN Reason: PAIN LEVEL 4 - 6 87 year old Gentleman with PMhx of Hypertension, CAD, AAA s/p repair earlier this year, Chronic lower back pain, Spinal Stenosis who presented with increased Lower back pain and LE weakness with Cr of 2. #MALINDA on CKD vs. Progressive CKD #Lower back pain #Proteinuria #Subdrual Hematoma Cr darren today, ? related to BP control causing mild renal hypoprofusion no nephrotoxin exposure noted would continue to trend BUN/Cr and electrolytes continue Labetalol gtt for BP control neurosurgical follow up Jay Diaz DO
[2018-02-18] MEDS ORDERED: traMADol HCL 50 MG TABLET PO PRN (17:10)
[2018-02-18] MEDS ORDERED: ACETAMINOPHEN 325 MG TABLET (FP) PO PRN (17:10)
[2018-02-18] MEDS ORDERED: LABETALOL HCL INJECTION 1,000 MG in SODIUM CHLORIDE 800 ML IV SCH (19:15)
[2018-02-18] MEDS ORDERED: DEXTROSE 5%-WATER - 50 ML IVPB ONE (20:34)
[2018-02-18] MEDS ORDERED: PT OWN MED DRAWER 7, Y5N ONE (21:02)
[2018-02-18] MEDS: CEFAZOLIN 1 GM in DEXTROSE 5%-WATER - 50 ML IVPB SCH (21:26)
[2018-02-18] MEDS: MUPIROCIN 2% TOPICAL OINTMENT FOR DECOLONIZATION NS SCH (21:27)
[2018-02-18] MEDS ORDERED: LIDOCAINE PATCH REMOVAL MC SCH ×2 (22:00)
[2018-02-18] MEDS ORDERED: CHLORHEXIDINE GLUCONATE 4% CLEANSER FOR DECOLONIZATION TP SCH (22:00)
[2018-02-18] MEDS: MORPHINE SULFATE 2 MG/ML VIAL IVPUSH PRN (22:16)
[2018-02-19] MEDS: MORPHINE SULFATE 2 MG/ML VIAL IVPUSH PRN (02:51)
[2018-02-19 05:51] LABS: HEMOGLOBIN 10.9 GM/dL (11.7-16.9); LYMPH % 6.4 % (8-40); MCH 29.6 pg (25.7-33.7); MCHC 34.1 g/dl (32.0-35.9); MEAN CELL VOLUME 86.9 fl (80-96); MEAN PLT VOLUME 7.2 fl (7.5-11.1); MONO % 6.3 % (3.8-10.2); NEUT % 87.3 % (42.8-82.8); PLATELET COUNT 209 K/MM3 (134-434); RBC 3.68 M/mm3 (4.00-5.60); RDW 13.8 % (11.9-15.9); WHITE BLOOD COUNT 7.8 K/mm3 (4.0-10.0)
[2018-02-19] MEDS ORDERED: ceFAZolin SODIUM 1 GM VIAL ONE ×2 (05:51→09:20)
[2018-02-19] MEDS ORDERED: DEXTROSE 5%-WATER - 50 ML IVPB ONE ×2 (05:51→09:20)
[2018-02-19] MEDS: CEFAZOLIN 1 GM in DEXTROSE 5%-WATER - 50 ML IVPB SCH (05:55)
[2018-02-19] MEDS: GABAPENTIN 100 MG CAPSULE (FP) PO SCH ×3 (05:56→22:01)
[2018-02-19 06:15] LABS: CALCIUM 8.1 mg/dL (8.5-10.1); CHLORIDE 109 mmol/L (98-107); POTASSIUM 3.6 mmol/L (3.5-5.1); SODIUM 142 mmol/L (136-145)
[2018-02-19 06:19] LABS: ALBUMIN 3.3 g/dl (3.4-5.0); ALK PHOS 57 U/L (45-117); ANION GAP 10 (8-16); BILIRUBIN,TOTAL 0.5 mg/dL (0.2-1.0); BLOOD UREA NITROGEN 29 mg/dL (7-18); CO2 23 mmol/L (21-32); CREATININE 2.2 mg/dL (0.7-1.3); GLUCOSE,RANDOM 121 mg/dL (74-106); MAGNESIUM 1.8 mg/dL (1.8-2.4); PHOSPHOROUS 3.2 mg/dL (2.5-4.9); SGOT/AST 42 U/L (15-37); SGPT/ALT 15 U/L (12-78); TOT PROT 6.1 g/dl (6.4-8.2)
[2018-02-19] MEDS ORDERED: LEVOTHYROXINE NA 50 MCG TABLET (FP) PO SCH (07:00)
[2018-02-19] MEDS: SODIUM CHLORIDE 1,000 ML IV SCH ×3 (07:48→18:25)
--- NOTE | 2018-02-19 08:57 | PN ---
Progress Note (short form) - Note Progress Note: Neurology History of Present Illness Initial Comments: 87 YOM with h/o HTN, hypothyroidism, CAD, AAA with repair earlier this year, and chronic lumbar back pain and spinal stenosis noted on imaging 3 years ago, who presented to the ED with increased chronic low back pain for the past 4 days with worsening of his chronic BLE weakness. His attempted to get him up from his bed but would not get up, which is abnormal for him. He stated his legs were too weak to stand or walk. He was admitted to the hospital and CT L spine showed degenerative changes. On night of admission, noted to have altered mental status and CT head completed which I reviewed and showed acute SDH 1.7- 1.9cm in size per report with mass effect and right to left shift. NSGY completed surgical intervention as documented. Remains ICU and under close monitoring. BPs during my visit are now < 130 systolic. Discussed with nurse. Remains on Keppra 750mg twice daily given large size of blood products. No seizure events. Remains awake and alert for me today. Able to tell me he's in the hospital. Was not aware of date. Per nurse was aggitated, wrist restraints in place. Otherwise cooperative for me. Active Medications Acetaminophen (Ofirmev Injection -) 1,000 mg IVPB Q6H PRN PRN Reason: PAIN LEVEL 1 - 3 Acetaminophen (Tylenol -) 650 mg PO Q6H PRN PRN Reason: FEVER Brimonidine Tartrate (Alphagan 0.2% -) 1 drop OD BID [facility] Last Admin: 02/18/18 21:27 Dose: 1 drop Chlorhexidine Gluconate (Hibiclens For Decolonization -) 1 applic TP HS [facility] Last Admin: 02/18/18 21:28 Dose: 1 applic Gabapentin (Neurontin -) 100 mg PO TID [facility] Last Admin: 02/19/18 05:56 Dose: 100 mg Sodium Chloride (Normal Saline -) 1,000 mls @ 75 mls/hr IV ASDIR [facility] Last Admin: 02/19/18 07:48 Dose: 75 mls/hr Labetalol HCl 1,000 mg/ Sodium (Chloride) 1,000 mls @ 120 mls/hr IV TITR [facility]; Protocol Last Admin: 02/19/18 02:00 Dose: 1 mg/min, 60 mls/hr Levetiracetam (Keppra Injection -) 750 mg IVPB BID [facility] Last Admin: 02/18/18 21:28 Dose: 750 mg Levothyroxine Sodium (Synthroid -) 50 mcg PO DAILY@0700 [facility] Last Admin: 02/19/18 06:25 Dose: 50 mcg Lidocaine (Lidoderm Patch -) 1 patch TP DAILY [facility] Miscellaneous (Lidoderm Patch Removal) 1 each MC DAILY@2200 [facility] Last Admin: 02/18/18 21:28 Dose: Not Given Morphine Sulfate (Morphine Sulfate) 2 mg IVPUSH Q4H PRN PRN Reason: PAIN LEVEL 1-5 Last Admin: 02/19/18 02:51 Dose: 2 mg Mupirocin (Bactroban Ointment (For Decolonization) -) 1 applic NS BID [facility] Stop: 02/23/18 21:59 Last Admin: 02/18/18 21:27 Dose: 1 applic Timolol Maleate (Timoptic 0.5%) 1 drop OD BID [facility] Last Admin: 02/18/18 21:27 Dose: 1 drop Tramadol HCl (Ultram -) 50 mg PO Q6H PRN PRN Reason: PAIN LEVEL 4 - 6 *Physical Exam Vital Signs Period Temp Pulse Resp BP Sys/Michel Pulse Ox Last 24 Hr 97.7 F-98.2 F 49-82 13-20 135-187/33-94 100-100 - Physical Exam General Appearance: Yes: Nourished, Appropriately Dressed, Not answering questions, somnolent HEENT: positive: EOMI, Normal Voice, Hearing Grossly Normal, Other (right pupil round and reactive to light, left pupil fixed dilated nonreactive stated chronic d/t multiple surgeries and eye injury). negative: Scleral Icterus (R), Scleral Icterus (L), Nasal Congestion Neck: positive: Trachea midline, Supple. negative: Tender, Rigid Respiratory/Chest: positive: Lungs Clear, Normal Breath Sounds. negative: Respiratory Distress, Crackles, Rhonchi, Stridor, Wheezing Cardiovascular: positive: Regular Rhythm, Regular Rate. negative: Edema, JVD, Murmur Gastrointestinal/Abdominal: positive: Normal Bowel Sounds, Soft. negative: Tender, Organomegaly, Pulsatile Mass, Guarding Musculoskeletal: positive: Normal Inspection. negative: Decreased Range of Motion, Vertebral Tenderness Extremity: positive: Normal Capillary Refill, Normal Inspection, Normal Range of Motion. negative: Tender, Cyanosis Integumentary: positive: Normal Color, Dry, Warm. negative: Erythema, Rash, Bruising Neurologic: No facial droop, responds to voice, sensory intact to tactile stim , moves extremities but not participating in confrontation testing CBCD WBC 7.8 K/mm3 (4.0-10.0) 02/19/18 05:30 RBC 3.68 M/mm3 (4.00-5.60) L 02/19/18 05:30 Hgb 10.9 GM/dL (11.7-16.9) L 02/19/18 05:30 Hct 32.0 % (35.4-49) L 02/19/18 05:30 MCV 86.9 fl (80-96) 02/19/18 05:30 MCHC 34.1 g/dl (32.0-35.9) 02/19/18 05:30 RDW 13.8 % (11.9-15.9) 02/19/18 05:30 Plt Count 209 K/MM3 (134-434) 02/19/18 05:30 MPV 7.2 fl (7.5-11.1) L 02/19/18 05:30 CMP Sodium 142 mmol/L (136-145) 02/19/18 05:30 Potassium 3.6 mmol/L (3.5-5.1) 02/19/18 05:30 Chloride 109 mmol/L (98-107) H 02/19/18 05:30 Carbon Dioxide 23 mmol/L (21-32) 02/19/18 05:30 Anion Gap 10 (8-16) 02/19/18 05:30 BUN 29 mg/dL (7-18) H 02/19/18 05:30 Creatinine 2.2 mg/dL (0.7-1.3) H 02/19/18 05:30 Creat Clearance w eGFR 28.45 (>60) 02/19/18 05:30 Calcium 8.1 mg/dL (8.5-10.1) L 02/19/18 05:30 Total Bilirubin 0.5 mg/dL (0.2-1.0) 02/19/18 05:30 AST 42 U/L (15-37) H D 02/19/18 05:30 ALT 15 U/L (12-78) D 02/19/18 05:30 Alkaline Phosphatase 57 U/L (45-117) 02/19/18 05:30 Total Protein 6.1 g/dl (6.4-8.2) L 02/19/18 05:30 Albumin 3.3 g/dl (3.4-5.0) L 02/19/18 05:[address] L spine reviewed Medical Decision Making 87 YOM with h/o HTN, hypothyroidism, CAD, AAA with repair earlier this year, and chronic lumbar back pain and spinal stenosis noted on imaging 3 years ago, who presented to the ED with increased chronic low back pain for the past 4 days with worsening of his chronic BLE weakness. His attempted to get him up from his bed but would not get up, which is abnormal for him. He stated his legs were too weak to stand or walk. He was admitted to the hospital and CT L spine showed degenerative changes. On night of admission, noted to have altered mental status and CT head completed which I reviewed and showed acute SDH 1.7- 1.9cm in size per report with mass effect and right to left shift. NSGY consulted, reportedly for surgical intervention per resident notes. Remains ICU and under close monitoring. BPs during my visit are now < 130 systolic. Discussed with nurse. Remains on Keppra 750mg twice daily given large size of blood products. No seizure events. Remains awake and alert for me today. Able to tell me he's in the hospital. Was not aware of date. Per nurse was aggitated , wrist restraints in place. Otherwise cooperative for me. Continue to hold any antiplatelet medication (on ASA, Plavix at home) Continue close monitoring, stat CT head for any deterioration in mental status. Monitor airway protection, repeat CT head, post-op recommended to evaluate for any residual blood products. Critical care 35 mins.
--- NOTE | 2018-02-19 09:27 | PN ---
Progress Note (short form) - Note Progress Note: POD#1 Pt in ICU overnight, started labetolol drip for SBP over 160 last night Vital Signs Period Temp Pulse Resp BP Sys/Michel Pulse Ox Last 24 Hr 97.7 F-98.2 F 50-82 13-20 135-187/33-94 99-100 FC:1350 urine GEN: Pt resting comfortably Neuro: confused but follows commands, b/l manager human capital strength equal and moving all extremities. His incision remains intact/aquacel dressing. No evidence of bleeding. CBC, BMP 02/19/18 05:30 02/19/18 05:30 A/P: 87 yo male s/p craniotomy with left subdural hematoma evacuation PT remains stable Npo for now, awaiting speech and swallow eval IV hydration Continue aquacel dressing D/w the pts evaluation/plan with Dr. Nolasco
[2018-02-19] MEDS: levETIRAcetam 500 MG/5 ML INJECTION VIAL IVPB SCH ×2 (09:51→22:00)
[2018-02-19] MEDS: MUPIROCIN 2% TOPICAL OINTMENT FOR DECOLONIZATION NS SCH ×2 (09:52→22:03)
[2018-02-19] MEDS: BRIMONIDINE TARTRATE 0.2% OPHTHALMIC 5 ML BOTTLE OD SCH ×2 (09:52→22:02)
[2018-02-19] MEDS: TIMOLOL 0.5% OPHTHALMIC SOL 5 ML BOTTLE OD SCH ×2 (09:52→22:02)
[2018-02-19] MEDS ORDERED: LIDOCAINE 5% TOPICAL PATCH TP SCH (10:00)
--- NOTE | 2018-02-19 10:33 | PN ---
Progress Note, Physician Chief Complaint: s/p craniotomy Pt is awake, moves all limbs no headaches - Current Medication List Current Medications: Active Medications Acetaminophen (Ofirmev Injection -) 1,000 mg IVPB Q6H PRN PRN Reason: PAIN LEVEL 1 - 3 Acetaminophen (Tylenol -) 650 mg PO Q6H PRN PRN Reason: FEVER Brimonidine Tartrate (Alphagan 0.2% -) 1 drop OD BID [facility] Last Admin: 02/19/18 09:52 Dose: 1 drop Chlorhexidine Gluconate (Hibiclens For Decolonization -) 1 applic TP HS [facility] Last Admin: 02/18/18 21:28 Dose: 1 applic Gabapentin (Neurontin -) 100 mg PO TID [facility] Last Admin: 02/19/18 05:56 Dose: 100 mg Sodium Chloride (Normal Saline -) 1,000 mls @ 75 mls/hr IV ASDIR [facility] Last Admin: 02/19/18 07:48 Dose: 75 mls/hr Labetalol HCl 1,000 mg/ Sodium (Chloride) 1,000 mls @ 120 mls/hr IV TITR [facility]; Protocol Last Admin: 02/19/18 02:00 Dose: 1 mg/min, 60 mls/hr Levetiracetam (Keppra Injection -) 750 mg IVPB BID [facility] Last Admin: 02/19/18 09:51 Dose: 750 mg Levothyroxine Sodium (Synthroid -) 50 mcg PO DAILY@0700 [facility] Last Admin: 02/19/18 06:25 Dose: 50 mcg Lidocaine (Lidoderm Patch -) 1 patch TP DAILY [facility] Miscellaneous (Lidoderm Patch Removal) 1 each MC DAILY@2200 [facility] Last Admin: 02/18/18 21:28 Dose: Not Given Morphine Sulfate (Morphine Sulfate) 2 mg IVPUSH Q4H PRN PRN Reason: PAIN LEVEL 1-5 Last Admin: 02/19/18 02:51 Dose: 2 mg Mupirocin (Bactroban Ointment (For Decolonization) -) 1 applic NS BID [facility] Stop: 02/23/18 21:59 Last Admin: 02/19/18 09:52 Dose: 1 applic Timolol Maleate (Timoptic 0.5%) 1 drop OD BID [facility] Last Admin: 02/19/18 09:52 Dose: 1 drop Tramadol HCl (Ultram -) 50 mg PO Q6H PRN PRN Reason: PAIN LEVEL 4 - 6 - Objective Vital Signs: Vital Signs Temperature 98.0 F 02/19/18 10:00 Pulse Rate 74 02/19/18 10:00 Respiratory Rate 12 02/19/18 10:00 Blood Pressure 152/59 02/19/18 10:00 O2 Sat by Pulse Oximetry (%) 99 02/19/18 09:00 Constitutional: Yes: No Distress, Calm Cardiovascular: Yes: Regular Rate and Rhythm Respiratory: Yes: Diminished Gastrointestinal: Yes: Normal Bowel Sounds, Soft. No: Tenderness Edema: No Neurological: Yes: Alert ...Motor Strength: WNL Psychiatric: Yes: Alert Labs: CBC, BMP 02/19/18 05:30 02/19/18 05:30 INR, PTT INR 1.35 (0.82-1.09) H 02/17/18 21:15 Problem List - Problems (1) Subdural hemorrhage Code(s): I62.00 - NONTRAUMATIC SUBDURAL HEMORRHAGE, UNSPECIFIED (2) CAD (coronary artery disease) Code(s): I25.10 - ATHSCL HEART DISEASE OF [place] CORONARY ARTERY W/O ANG PCTRS Qualifiers: [place] vs. transplanted heart: [place] heart Associated angina: without angina (3) Acute renal insufficiency Code(s): N28.9 - DISORDER OF KIDNEY AND URETER, UNSPECIFIED (4) Hypothyroid Code(s): E03.9 - HYPOTHYROIDISM, UNSPECIFIED Qualifiers: Hypothyroidism type: other Qualified Code(s): E03.8 - Other specified hypothyroidism Assessment/Plan PLAN s/p craniotomy iv fluids Swallow eval trial of puree diet Pt eval post op ICU continue with current care Spoke with ICU team
--- NOTE | 2018-02-19 11:38 | PN ---
Progress Note, Physician Chief Complaint: s/p evacuation of subdural hematoma under general anesthesia History of Present Illness: post op day one. - Current Medication List Current Medications: Active Medications Acetaminophen (Ofirmev Injection -) 1,000 mg IVPB Q6H PRN PRN Reason: PAIN LEVEL 1 - 3 Acetaminophen (Tylenol -) 650 mg PO Q6H PRN PRN Reason: FEVER Brimonidine Tartrate (Alphagan 0.2% -) 1 drop OD BID [facility] Last Admin: 02/19/18 09:52 Dose: 1 drop Chlorhexidine Gluconate (Hibiclens For Decolonization -) 1 applic TP HS [facility] Last Admin: 02/18/18 21:28 Dose: 1 applic Gabapentin (Neurontin -) 100 mg PO TID [facility] Last Admin: 02/19/18 05:56 Dose: 100 mg Sodium Chloride (Normal Saline -) 1,000 mls @ 75 mls/hr IV ASDIR [facility] Last Admin: 02/19/18 07:48 Dose: 75 mls/hr Labetalol HCl 1,000 mg/ Sodium (Chloride) 1,000 mls @ 120 mls/hr IV TITR [facility]; Protocol Last Admin: 02/19/18 02:00 Dose: 1 mg/min, 60 mls/hr Levetiracetam (Keppra Injection -) 750 mg IVPB BID [facility] Last Admin: 02/19/18 09:51 Dose: 750 mg Levothyroxine Sodium (Synthroid -) 50 mcg PO DAILY@0700 [facility] Last Admin: 02/19/18 06:25 Dose: 50 mcg Lidocaine (Lidoderm Patch -) 1 patch TP DAILY [facility] Last Admin: 02/19/18 10:30 Dose: Not Given Miscellaneous (Lidoderm Patch Removal) 1 each MC DAILY@2200 [facility] Last Admin: 02/18/18 21:28 Dose: Not Given Morphine Sulfate (Morphine Sulfate) 2 mg IVPUSH Q4H PRN PRN Reason: PAIN LEVEL 1-5 Last Admin: 02/19/18 02:51 Dose: 2 mg Mupirocin (Bactroban Ointment (For Decolonization) -) 1 applic NS BID [facility] Stop: 02/23/18 21:59 Last Admin: 02/19/18 09:52 Dose: 1 applic Timolol Maleate (Timoptic 0.5%) 1 drop OD BID [facility] Last Admin: 02/19/18 09:52 Dose: 1 drop Tramadol HCl (Ultram -) 50 mg PO Q6H PRN PRN Reason: PAIN LEVEL 4 - 6 - Objective Vital Signs: Vital Signs Temperature 98.0 F 02/19/18 10:00 Pulse Rate 74 02/19/18 10:00 Respiratory Rate 12 02/19/18 10:00 Blood Pressure 152/59 02/19/18 10:00 O2 Sat by Pulse Oximetry (%) 99 02/19/18 09:00 Constitutional: Yes: Well Nourished Cardiovascular: Yes: WNL Respiratory: Yes: WNL Gastrointestinal: Yes: WNL Labs: CBC, BMP 02/19/18 05:30 02/19/18 05:30 INR, PTT INR 1.35 (0.82-1.09) H 02/17/18 21:15 Assessment/Plan Patient confused but responsive. No acute distress. No adverse events from anesthetic apparent. Will sign off care at this time.
--- NOTE | 2018-02-19 11:51 | PN ---
Teaching Attending Note Name of Resident: Farhan Armijo ATTENDING PHYSICIAN STATEMENT I saw and evaluated the patient. I reviewed the resident's note and discussed the case with the resident. I agree with the resident's findings and plan as documented. SUBJECTIVE: Patient seen and examined in the ICU. POD #1: Left craniotomy and evacuation of a Sudural hematoma Awake and interactive but slightly more confused than yesterday. Denies CP or SOB. Less LUE drift is noted. Denies DUEÑAS, BOV, dizziness, etc. Intake & Output 02/16/18 02/17/18 02/18/18 02/19/18 23:59 23:59 23:59 23:59 Intake Total 150 1400 595 895 Output Total 1550 1125 300 Balance 150 -150 -530 595 Weight 127 lb 127 lb Last Vital Signs Temp Pulse Resp BP Pulse Ox 98.0 F 74 12 152/59 99 02/19/18 10:00 02/19/18 10:00 02/19/18 10:00 02/19/18 10:00 02/19/18 09:00 Active Medications Acetaminophen (Ofirmev Injection -) 1,000 mg IVPB Q6H PRN PRN Reason: PAIN LEVEL 1 - 3 Acetaminophen (Tylenol -) 650 mg PO Q6H PRN PRN Reason: FEVER Brimonidine Tartrate (Alphagan 0.2% -) 1 drop OD BID [facility] Last Admin: 02/19/18 09:52 Dose: 1 drop Chlorhexidine Gluconate (Hibiclens For Decolonization -) 1 applic TP HS [facility] Last Admin: 02/18/18 21:28 Dose: 1 applic Gabapentin (Neurontin -) 100 mg PO TID [facility] Last Admin: 02/19/18 05:56 Dose: 100 mg Sodium Chloride (Normal Saline -) 1,000 mls @ 75 mls/hr IV ASDIR [facility] Last Admin: 02/19/18 07:48 Dose: 75 mls/hr Labetalol HCl 1,000 mg/ Sodium (Chloride) 1,000 mls @ 120 mls/hr IV TITR [facility]; Protocol Last Admin: 02/19/18 02:00 Dose: 1 mg/min, 60 mls/hr Levetiracetam (Keppra Injection -) 750 mg IVPB BID [facility] Last Admin: 02/19/18 09:51 Dose: 750 mg Levothyroxine Sodium (Synthroid -) 50 mcg PO DAILY@0700 [facility] Last Admin: 02/19/18 06:25 Dose: 50 mcg Lidocaine (Lidoderm Patch -) 1 patch TP DAILY [facility] Last Admin: 02/19/18 10:30 Dose: Not Given Miscellaneous (Lidoderm Patch Removal) 1 each MC DAILY@2200 [facility] Last Admin: 02/18/18 21:28 Dose: Not Given Morphine Sulfate (Morphine Sulfate) 2 mg IVPUSH Q4H PRN PRN Reason: PAIN LEVEL 1-5 Last Admin: 02/19/18 02:51 Dose: 2 mg Mupirocin (Bactroban Ointment (For Decolonization) -) 1 applic NS BID [facility] Stop: 02/23/18 21:59 Last Admin: 02/19/18 09:52 Dose: 1 applic Timolol Maleate (Timoptic 0.5%) 1 drop OD BID [facility] Last Admin: 02/19/18 09:52 Dose: 1 drop Tramadol HCl (Ultram -) 50 mg PO Q6H PRN PRN Reason: PAIN LEVEL 4 - 6 General Appearance: Yes: Awake and alert, NAD HEENT: (-) Pallor, left pupillary changes, (-) Icterus Neck: positive: Trachea midline, Supple. negative: Tender, Rigid Respiratory/Chest: positive: Clear, (-) Crackles, Wheezing Cardiovascular: positive: Regular Rhythm, Regular Rate. negative: Edema, JVD, Murmur Gastrointestinal/Abdominal: positive: Normal Bowel Sounds, Soft. negative: Organomegaly, Pulsatile Mass, Guarding Musculoskeletal: positive: Normal Inspection. negative: Decreased Range of Motion, Vertebral Tenderness Extremity: positive: Normal Capillary Refill, Normal Inspection, Normal Range of Motion. negative: Tender, Cyanosis Integumentary: positive: Normal Color, Dry, Warm. negative: Erythema, Rash, Bruising Neurologic: No facial droop, non-focal Laboratory Results - last 24 hr 02/16/18 02/18/18 02/19/18 09:05 11:30 05:30 WBC 7.8 RBC 3.68 L Hgb 10.9 L Hct 32.0 L MCV 86.9 MCH 29.6 MCHC 34.1 RDW 13.8 Plt Count 209 MPV 7.2 L Absolute Neuts (auto) 6.8 Neutrophils % 87.3 H D Lymphocytes % 6.4 L D Monocytes % 6.3 Eosinophils % 0.0 D Basophils % 0.0 Nucleated RBC % 0 Sodium Potassium Chloride Carbon Dioxide Anion Gap BUN Creatinine Creat Clearance w eGFR Random Glucose Calcium Phosphorus Magnesium Total Bilirubin AST ALT Alkaline Phosphatase Total Protein Total Protein (PEP) 6.6 Albumin Albumin (PEP) 3.5 Globulin 3.1 Albumin/Globulin Ratio 1.1 Beta Globulins 1.0 Urine Color Dkyellow Urine Appearance Clear Urine pH 5.0 D Ur Specific [place] 1.024 Urine Protein 2+ H Urine Glucose (UA) Negative Urine Ketones Negative Urine Blood Negative Urine Nitrite Negative Urine Bilirubin Negative Urine Urobilinogen Negative Ur Leukocyte Esterase 1+ H Urine WBC (Auto) 38 Urine RBC (Auto) 7 Hyaline Casts 1 Urine Mucus Rare SIMRAN M-Varun Not observed 02/19/18 05:30 WBC RBC Hgb Hct MCV MCH MCHC RDW Plt Count MPV Absolute Neuts (auto) Neutrophils % Lymphocytes % Monocytes % Eosinophils % Basophils % Nucleated RBC % Sodium 142 Potassium 3.6 Chloride 109 H Carbon Dioxide 23 Anion Gap 10 BUN 29 H Creatinine 2.2 H Creat Clearance w eGFR 28.45 Random Glucose 121 H D Calcium 8.1 L Phosphorus 3.2 Magnesium 1.8 Total Bilirubin 0.5 AST 42 H D ALT 15 D Alkaline Phosphatase 57 Total Protein 6.1 L Total Protein (PEP) Albumin 3.3 L Albumin (PEP) Globulin Albumin/Globulin Ratio Beta Globulins Urine Color Urine Appearance Urine pH Ur Specific [place] Urine Protein Urine Glucose (UA) Urine Ketones Urine Blood Urine Nitrite Urine Bilirubin Urine Urobilinogen Ur Leukocyte Esterase Urine WBC (Auto) Urine RBC (Auto) Hyaline Casts Urine Mucus SIMRAN M-Varun IMP: POD #1: Left craniotomy and evacuation of a Sudural hematoma Acute Left SDH 1.7-1.9 cm mass effect and shift. HTN Hypothyroidism AAA CAD PLAN: Follow Neuro exam O2 as needed Aspiration precautions SCDs Kepp BP monitoring: keep below [address] Pinedo Critical care time spent in reviewing chart, evaluating patient and formulating plan - 36 minutes.
--- NOTE | 2018-02-19 12:49 | PN ---
Progress Note, [employer] - Note Progress Note: Attempted to see pt yeserday but NPO/sx. Looking well today, s/p Pre-Operative Diagnosis: left subdural hematoma Operation: craniotomy and evaucation of hematoma Verbal, confused. Good vocal quality. Speech production more precise than 02/17 and more alert. Tolerating puree and nectar thick. Aspiration risk as he talks and jokes/ laughs with food in oral cavity/pharynx. Greater risk with solids. 3 oz water still with responsive cough. Continue puree/nectar for now. Encourage pt not to speak until after he swallows. Neck roll for head support to eliminate head extension which opens airway and increases risk of aspiration.
[2018-02-19] MEDS ORDERED: LYTES/YERBA SANTA 240 ML BOTTLE MM PRN ×2 (13:03→18:25)
--- NOTE | 2018-02-19 13:06 | PN ---
Progress Note (short form) - Note Progress Note: Renal follow up for MALINDA/CKD Pt seen and examined in the ICU awake and alert speech appears better denies any acute compalints nurse reports confusion and some agitation overnight Vital Signs Temperature 98.3 F 02/19/18 12:00 Pulse Rate 72 02/19/18 12:00 Respiratory Rate 17 02/19/18 12:00 Blood Pressure 132/60 02/19/18 12:00 O2 Sat by Pulse Oximetry (%) 99 02/19/18 09:00 Intake & Output 02/16/18 02/17/18 02/18/18 02/19/18 23:59 23:59 23:59 23:59 Intake Total 150 1400 595 995 Output Total 1550 1125 300 Balance 150 -150 -530 695 Weight 57.606 kg 57.606 kg NAD Dry MM dressing over head Neck supple, no JVD RRR, no M/R no rales soft NT/ND no LE edema, clubbing or cyanosis CBC, BMP 02/19/18 05:30 02/19/18 05:30 Current Medications Acetaminophen (Ofirmev Injection -) 1,000 mg IVPB Q6H PRN PRN Reason: PAIN LEVEL 1 - 3 Acetaminophen (Tylenol -) 650 mg PO Q6H PRN PRN Reason: FEVER Brimonidine Tartrate (Alphagan 0.2% -) 1 drop OD BID [facility] Last Admin: 02/19/18 09:52 Dose: 1 drop Chlorhexidine Gluconate (Hibiclens For Decolonization -) 1 applic TP HS [facility] Last Admin: 02/18/18 21:28 Dose: 1 applic Gabapentin (Neurontin -) 100 mg PO TID [facility] Last Admin: 02/19/18 13:03 Dose: 100 mg Sodium Chloride (Normal Saline -) 1,000 mls @ 75 mls/hr IV ASDIR [facility] Last Admin: 02/19/18 07:48 Dose: 75 mls/hr Labetalol HCl 1,000 mg/ Sodium (Chloride) 1,000 mls @ 120 mls/hr IV TITR [facility]; Protocol Last Admin: 02/19/18 02:00 Dose: 1 mg/min, 60 mls/hr Levetiracetam (Keppra Injection -) 750 mg IVPB BID [facility] Last Admin: 02/19/18 09:51 Dose: 750 mg Levothyroxine Sodium (Synthroid -) 50 mcg PO DAILY@0700 [facility] Last Admin: 02/19/18 06:25 Dose: 50 mcg Lidocaine (Lidoderm Patch -) 1 patch TP DAILY [facility] Last Admin: 02/19/18 10:30 Dose: Not Given Miscellaneous (Lidoderm Patch Removal) 1 each MC DAILY@2200 [facility] Last Admin: 02/18/18 21:28 Dose: Not Given Morphine Sulfate (Morphine Sulfate) 2 mg IVPUSH Q4H PRN PRN Reason: PAIN LEVEL 1-5 Last Admin: 02/19/18 02:51 Dose: 2 mg Mupirocin (Bactroban Ointment (For Decolonization) -) 1 applic NS BID [facility] Stop: 02/23/18 21:59 Last Admin: 02/19/18 09:52 Dose: 1 applic Saliva Substitute (Mouthkote Solution -) 1 applic MM DAILY PRN PRN Reason: dry mouth Timolol Maleate (Timoptic 0.5%) 1 drop OD BID [facility] Last Admin: 02/19/18 09:52 Dose: 1 drop Tramadol HCl (Ultram -) 50 mg PO Q6H PRN PRN Reason: PAIN LEVEL 4 - 6 87 year old Gentleman with PMhx of Hypertension, CAD, AAA s/p repair earlier this year, Chronic lower back pain, Spinal Stenosis who presented with increased Lower back pain and LE weakness with Cr of 2. #MALINDA on CKD vs. Progressive CKD #Proteinuria #Subdrual Hematoma Renal function unchanged at this time BP controlled with Labetalol gtt started on IVF yesterday, would continue for now as long as BP does not rise too much Trend renal function and electrolytes Jay Diaz DO
[2018-02-19] MEDS ORDERED: METOPROLOL TARTRATE 25 MG TABLET (FP) PO ONE (14:30)
[2018-02-19] MEDS ORDERED: MORPHINE SULFATE 2 MG/ML VIAL IVPUSH PRN (18:25)
[2018-02-19] MEDS ORDERED: ACETAMINOPHEN 325 MG TABLET (FP) PO PRN (18:25)
[2018-02-19] MEDS ORDERED: ACETAMINOPHEN 1000 MG/100 ML VIAL (NON FORMULARY) IVPB PRN (18:25)
[2018-02-19] MEDS ORDERED: traMADol HCL 50 MG TABLET PO PRN (18:25)
--- NOTE | 2018-02-19 19:23 | PN ---
Physical Exam: SUBJECTIVE: Patient seen and examined this am and evening in icu. Pt remains confused. Responds to verbal commands. Denies cp, sob, jeffries, fever, nausea, or vomiting. OBJECTIVE: Vital Signs Period Temp Pulse Resp BP Sys/Michel Pulse Ox Last 24 Hr 97.8 F-98.3 F 57-82 12-18 128-187/55-92 99-100 GENERAL: Not oriented to place or time. HEAD: Bandage on head s/p craniotomy. EYES: EOMI. ENT: MMM NECK: Supple. LUNGS: CTA B/L. HEART: RRR ABDOMEN: ND, NT, No HSM. EXTREMITIES: No CCE NEUROLOGICAL: Strength improving all extremities. No Sensory deficits observed. PSYCH: Normal mood, normal affect. SKIN: Warm, pale Laboratory Results - last 24 hr 02/16/18 02/19/18 02/19/18 09:05 05:30 05:30 WBC 7.8 RBC 3.68 L Hgb 10.9 L Hct 32.0 L MCV 86.9 MCH 29.6 MCHC 34.1 RDW 13.8 Plt Count 209 MPV 7.2 L Absolute Neuts (auto) 6.8 Neutrophils % 87.3 H D Lymphocytes % 6.4 L D Monocytes % 6.3 Eosinophils % 0.0 D Basophils % 0.0 Nucleated RBC % 0 Sodium 142 Potassium 3.6 Chloride 109 H Carbon Dioxide 23 Anion Gap 10 BUN 29 H Creatinine 2.2 H Creat Clearance w eGFR 28.45 Random Glucose 121 H D Calcium 8.1 L Phosphorus 3.2 Magnesium 1.8 Total Bilirubin 0.5 AST 42 H D ALT 15 D Alkaline Phosphatase 57 Total Protein 6.1 L Total Protein (PEP) 6.6 Albumin 3.3 L Albumin (PEP) 3.5 Globulin 3.1 Albumin/Globulin Ratio 1.1 Beta Globulins 1.0 SIMRAN M-Varun Not observed Active Medications Generic Name Dose Route Start Last Admin Trade Name Freq PRN Reason Stop Dose Admin Acetaminophen 650 mg 02/19/18 18:25 Tylenol - PO Q6H PRN FEVER Acetaminophen 1,000 mg 02/19/18 18:25 Ofirmev Injection - IVPB Q6H PRN PAIN LEVEL 1 - 3 Brimonidine Tartrate 1 drop 02/19/18 22:00 Alphagan 0.2% - OD BID [facility] Chlorhexidine Gluconate 1 applic 02/19/18 22:00 Hibiclens For Decolonization - TP HS [facility] Gabapentin 100 mg 02/19/18 22:00 Neurontin - PO TID [facility] Sodium Chloride 1,000 mls @ 75 mls/hr 02/19/18 18:25 02/19/18 18:25 Normal Saline - IV 75 mls/hr ASDIR KRISTY Administration Levetiracetam 500 mg 02/19/18 22:00 Keppra Injection - IVPB BID [facility] Levothyroxine Sodium 50 mcg 02/20/18 07:00 Synthroid - PO DAILY@0700 [facility] Lidocaine 1 patch 02/20/18 10:00 Lidoderm Patch - TP DAILY [facility] Metoprolol Tartrate 25 mg 02/19/18 22:00 Lopressor - PO BID [facility] Miscellaneous 1 each 02/19/18 22:00 Lidoderm Patch Removal MC DAILY@2200 [facility] Morphine Sulfate 2 mg 02/19/18 18:25 Morphine Sulfate IVPUSH Q4H PRN PAIN LEVEL 1-3 Mupirocin 1 applic 02/19/18 22:00 Bactroban Ointment (For Decolonization) - NS 02/23/18 21:59 BID [facility] Saliva Substitute 1 applic 02/19/18 18:25 Mouthkote Solution - MM DAILY PRN dry mouth Timolol Maleate 1 drop 02/19/18 22:00 Timoptic 0.5% OD BID [facility] Tramadol HCl 50 mg 02/19/18 18:25 Ultram - PO Q6H PRN PAIN LEVEL 4 - 6 ASSESSMENT/PLAN: 87 y/o gentleman with a PMH of HTN, Dementia, HLD, 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 Neuro- Disoriented Pt s/p subdural hematoma evacuated by Dr Nolasco yesterday Keppra 750 mg IVPB BID for seizure ppx. CT Head 02/17/18---> acute SDH 1.7-1.9cm in size per report with mass effect and right to left shift. Hypertensive Urgency: Labetalol gtt 120 mls/hr. Currently off. will continue if BP rises. Renal BUN/CR 29/2.2. MALINDA on CKD vs. Progressive CKD? Urine Protein 2+. Continue to trend renal function and electrolytes. Hypothyroidism: -Levothyroxine 50 mcg PO Daily FEN Normal Saline Monitor Electrolytes NPO DVT ppx: SCD's Dispo: Monitor in ICU. Visit type - Emergency Visit Emergency Visit: Yes ED Registration Date: 02/19/18 Care time: The patient presented to the Emergency Department on the above date and was hospitalized for further evaluation of their emergent condition. - New Patient This patient is new to me today: No - Critical Care Critical Care patient: Yes Total Critical Care Time (in minutes): 35 Critical Care Statement: The care of this patient involved high complexity decision making to prevent further life threatening deterioration of the patient 's condition and/or to evaluate & treat vital organ system(s) failure or risk of failure.
[2018-02-19] MEDS: LIDOCAINE PATCH REMOVAL MC SCH (21:51)
[2018-02-19] MEDS ORDERED: PT OWN MED DRAWER 7, Y5N ONE (21:55)
[2018-02-19] MEDS: CHLORHEXIDINE GLUCONATE 4% CLEANSER FOR DECOLONIZATION TP SCH (22:00)
[2018-02-19] MEDS ORDERED: METOPROLOL TARTRATE 25 MG TABLET (FP) PO SCH (22:00)
[2018-02-19] MEDS ORDERED: LIDOCAINE PATCH REMOVAL MC SCH (22:00)
[2018-02-20] MEDS: METOPROLOL TARTRATE 25 MG TABLET (FP) PO SCH ×3 (00:54→22:25)
[2018-02-20] MEDS: SODIUM CHLORIDE 1,000 ML IV SCH (05:49)
[2018-02-20] MEDS: GABAPENTIN 100 MG CAPSULE (FP) PO SCH ×3 (05:58→22:24)
[2018-02-20] MEDS: LEVOTHYROXINE NA 50 MCG TABLET (FP) PO SCH (06:00)
[2018-02-20 06:44] LABS: BASO % 0.3 % (0-2.0); EOS % 1.5 % (0-4.5); HEMATOCRIT 27.1 % (35.4-49); HEMOGLOBIN 9.4 GM/dL (11.7-16.9); LYMPH % 27.2 % (8-40); MCH 30.3 pg (25.7-33.7); MCHC 34.8 g/dl (32.0-35.9); MEAN PLT VOLUME 7.3 fl (7.5-11.1); MONO % 10.2 % (3.8-10.2); NEUT % 60.8 % (42.8-82.8); PLATELET COUNT 172 K/MM3 (134-434); RBC 3.12 M/mm3 (4.00-5.60); RDW 13.9 % (11.9-15.9); WHITE BLOOD COUNT 7.3 K/mm3 (4.0-10.0)
[2018-02-20 06:58] LABS: CHLORIDE 117 mmol/L (98-107); POTASSIUM 4.3 mmol/L (3.5-5.1); SODIUM 147 mmol/L (136-145)
[2018-02-20 07:10] LABS: ALBUMIN 2.9 g/dl (3.4-5.0); ALK PHOS 45 U/L (45-117); ANION GAP 9 (8-16); BILIRUBIN,TOTAL 0.6 mg/dL (0.2-1.0); BLOOD UREA NITROGEN 29 mg/dL (7-18); CALCIUM 7.8 mg/dL (8.5-10.1); CO2 21 mmol/L (21-32); CREATININE 1.8 mg/dL (0.7-1.3); GLUCOSE,RANDOM 75 mg/dL (74-106); PHOSPHOROUS 1.9 mg/dL (2.5-4.9); SGOT/AST 58 U/L (15-37); SGPT/ALT 14 U/L (12-78); TOT PROT 5.1 g/dl (6.4-8.2)
[2018-02-20] MEDS: levETIRAcetam 500 MG/5 ML INJECTION VIAL IVPB SCH ×2 (09:49→22:24)
[2018-02-20] MEDS: TIMOLOL 0.5% OPHTHALMIC SOL 5 ML BOTTLE OD SCH ×2 (09:50→22:25)
[2018-02-20] MEDS: BRIMONIDINE TARTRATE 0.2% OPHTHALMIC 5 ML BOTTLE OD SCH ×2 (09:50→22:25)
[2018-02-20] MEDS: LIDOCAINE 5% TOPICAL PATCH TP SCH (09:51)
[2018-02-20] MEDS: MUPIROCIN 2% TOPICAL OINTMENT FOR DECOLONIZATION NS SCH ×2 (09:51→22:26)
--- NOTE | 2018-02-20 10:15 | PN ---
Progress Note (short form) - Note Progress Note: Neurology History of Present Illness Initial Comments: 87 YOM with h/o HTN, hypothyroidism, CAD, AAA with repair earlier this year, and chronic lumbar back pain and spinal stenosis noted on imaging 3 years ago, who presented to the ED with increased chronic low back pain for the past 4 days with worsening of his chronic BLE weakness. His attempted to get him up from his bed but would not get up, which is abnormal for him. He stated his legs were too weak to stand or walk. He was admitted to the hospital and CT L spine showed degenerative changes. On night of admission, noted to have altered mental status and CT head completed which I reviewed and showed acute SDH 1.7- 1.9cm in size per report with mass effect and right to left shift. NSGY completed surgical intervention as documented. Remains ICU and under close monitoring. BPs during my visit are > 150 systolic. Discussed with nurse. Remains on Keppra 750mg twice daily given large size of blood products. No seizure events. Remains awake and alert for me today. Able to tell me he's in the hospital. Was not aware of date. Repeat CT head 02/18 with still midline some midline shift. Active Medications Acetaminophen (Tylenol -) 650 mg PO Q6H PRN PRN Reason: FEVER Acetaminophen (Ofirmev Injection -) 1,000 mg IVPB Q6H PRN PRN Reason: PAIN LEVEL 1 - 3 Last Admin: 02/19/18 22:00 Dose: 1,000 mg Brimonidine Tartrate (Alphagan 0.2% -) 1 drop OD BID [facility] Last Admin: 02/20/18 09:50 Dose: 1 drop Chlorhexidine Gluconate (Hibiclens For Decolonization -) 1 applic TP HS [facility] Last Admin: 02/19/18 22:00 Dose: 1 applic Gabapentin (Neurontin -) 100 mg PO TID [facility] Last Admin: 02/20/18 05:58 Dose: 100 mg Sodium Chloride (Normal Saline -) 1,000 mls @ 75 mls/hr IV ASDIR [facility] Last Admin: 02/20/18 05:49 Dose: 75 mls/hr Levetiracetam (Keppra Injection -) 500 mg IVPB BID [facility] Last Admin: 02/20/18 09:49 Dose: 500 mg Levothyroxine Sodium (Synthroid -) 50 mcg PO DAILY@0700 [facility] Last Admin: 02/20/18 06:00 Dose: 50 mcg Lidocaine (Lidoderm Patch -) 1 patch TP DAILY [facility] Last Admin: 02/20/18 09:51 Dose: 1 patch Metoprolol Tartrate (Lopressor -) 25 mg PO BID [facility] Last Admin: 02/20/18 09:51 Dose: Not Given Miscellaneous (Lidoderm Patch Removal) 1 each MC DAILY@2200 [facility] Last Admin: 02/19/18 21:51 Dose: Not Given Morphine Sulfate (Morphine Sulfate) 2 mg IVPUSH Q4H PRN PRN Reason: PAIN LEVEL 1-3 Mupirocin (Bactroban Ointment (For Decolonization) -) 1 applic NS BID [facility] Stop: 02/23/18 21:59 Last Admin: 02/20/18 09:51 Dose: 1 applic Saliva Substitute (Mouthkote Solution -) 1 applic MM DAILY PRN PRN Reason: dry mouth Timolol Maleate (Timoptic 0.5%) 1 drop OD BID [facility] Last Admin: 02/20/18 09:50 Dose: 1 drop Tramadol HCl (Ultram -) 50 mg PO Q6H PRN PRN Reason: PAIN LEVEL 4 - 6 *Physical Exam Vital Signs Period Temp Pulse Resp BP Sys/Michel Pulse Ox Last 24 Hr 97.9 F-98.6 F 40-82 14-18 126-158/56-92 99-99 - Physical Exam General Appearance: Yes: Nourished, Appropriately Dressed, Not answering questions, somnolent HEENT: positive: EOMI, Normal Voice, Hearing Grossly Normal, Other (right pupil round and reactive to light, left pupil fixed dilated nonreactive stated chronic d/t multiple surgeries and eye injury). negative: Scleral Icterus (R), Scleral Icterus (L), Nasal Congestion Neck: positive: Trachea midline, Supple. negative: Tender, Rigid Respiratory/Chest: positive: Lungs Clear, Normal Breath Sounds. negative: Respiratory Distress, Crackles, Rhonchi, Stridor, Wheezing Cardiovascular: positive: Regular Rhythm, Regular Rate. negative: Edema, JVD, Murmur Gastrointestinal/Abdominal: positive: Normal Bowel Sounds, Soft. negative: Tender, Organomegaly, Pulsatile Mass, Guarding Musculoskeletal: positive: Normal Inspection. negative: Decreased Range of Motion, Vertebral Tenderness Extremity: positive: Normal Capillary Refill, Normal Inspection, Normal Range of Motion. negative: Tender, Cyanosis Integumentary: positive: Normal Color, Dry, Warm. negative: Erythema, Rash, Bruising Neurologic: No facial droop, responds to voice, sensory intact to tactile stim , moves extremities but not participating in confrontation testing CBCD WBC 7.3 K/mm3 (4.0-10.0) 02/20/18 05:30 RBC 3.12 M/mm3 (4.00-5.60) L 02/20/18 05:30 Hgb 9.4 GM/dL (11.7-16.9) L 02/20/18 05:30 Hct 27.1 % (35.4-49) L D 02/20/18 05:30 MCV 87.0 fl (80-96) 02/20/18 05:30 MCHC 34.8 g/dl (32.0-35.9) 02/20/18 05:30 RDW 13.9 % (11.9-15.9) 02/20/18 05:30 Plt Count 172 K/MM3 (134-434) 02/20/18 05:30 MPV 7.3 fl (7.5-11.1) L 02/20/18 05:30 CMP Sodium 147 mmol/L (136-145) H 02/20/18 05:30 Potassium 4.3 mmol/L (3.5-5.1) 02/20/18 05:30 Chloride 117 mmol/L (98-107) H 02/20/18 05:30 Carbon Dioxide 21 mmol/L (21-32) 02/20/18 05:30 Anion Gap 9 (8-16) 02/20/18 05:30 BUN 29 mg/dL (7-18) H 02/20/18 05:30 Creatinine 1.8 mg/dL (0.7-1.3) H 02/20/18 05:30 Creat Clearance w eGFR 35.87 (>60) 02/20/18 05:30 Random Glucose 75 mg/dL (74-106) D 02/20/18 05:30 Calcium 7.8 mg/dL (8.5-10.1) L 02/20/18 05:30 Total Bilirubin 0.6 mg/dL (0.2-1.0) 02/20/18 05:30 AST 58 U/L (15-37) H D 02/20/18 05:30 ALT 14 U/L (12-78) 02/20/18 05:30 Alkaline Phosphatase 45 U/L (45-117) D 02/20/18 05:30 Total Protein 5.1 g/dl (6.4-8.2) L 02/20/18 05:30 Albumin 2.9 g/dl (3.4-5.0) L 02/20/18 05:30 CARDIAC ENZYMES Creatine Kinase 49 IU/L (39-308) 02/17/18 21:45 Troponin I < 0.02 ng/ml (0.00-0.05) 02/17/18 21:[address] L spine reviewed Medical Decision Making 87 YOM with h/o HTN, hypothyroidism, CAD, AAA with repair earlier this year, and chronic lumbar back pain and spinal stenosis noted on imaging 3 years ago, who presented to the ED with increased chronic low back pain for the past 4 days with worsening of his chronic BLE weakness. His attempted to get him up from his bed but would not get up, which is abnormal for him. He stated his legs were too weak to stand or walk. He was admitted to the hospital and CT L spine showed degenerative changes. On night of admission, noted to have altered mental status and CT head completed which I reviewed and showed acute SDH 1.7- 1.9cm in size per report with mass effect and right to left shift. NSGY consulted, reportedly for surgical intervention per resident notes. Remains ICU and under close monitoring. BPs during my visit are > 150 systolic. Discussed with nurse. Remains on Keppra 750mg twice daily given large size of blood products. No seizure events. Remains awake and alert for me today. Able to tell me he's in the hospital. Was not aware of date. Per nurse was aggitated, wrist restraints in place. Otherwise cooperative for me. Continue to hold any antiplatelet medication (on ASA, Plavix at home) Continue close monitoring, stat CT head for any deterioration in mental status. Monitor airway protection. Critical care 35 mins.
--- NOTE | 2018-02-20 10:53 | PN ---
Progress Note, Physician Chief Complaint: s/p craniotomy Pt is awake, moves all limbs no headaches - Current Medication List Current Medications: Active Medications Acetaminophen (Tylenol -) 650 mg PO Q6H PRN PRN Reason: FEVER Acetaminophen (Ofirmev Injection -) 1,000 mg IVPB Q6H PRN PRN Reason: PAIN LEVEL 1 - 3 Last Admin: 02/19/18 22:00 Dose: 1,000 mg Brimonidine Tartrate (Alphagan 0.2% -) 1 drop OD BID [facility] Last Admin: 02/20/18 09:50 Dose: 1 drop Chlorhexidine Gluconate (Hibiclens For Decolonization -) 1 applic TP HS [facility] Last Admin: 02/19/18 22:00 Dose: 1 applic Gabapentin (Neurontin -) 100 mg PO TID [facility] Last Admin: 02/20/18 05:58 Dose: 100 mg Sodium Chloride (Normal Saline -) 1,000 mls @ 75 mls/hr IV ASDIR [facility] Last Admin: 02/20/18 05:49 Dose: 75 mls/hr Levetiracetam (Keppra Injection -) 500 mg IVPB BID [facility] Last Admin: 02/20/18 09:49 Dose: 500 mg Levothyroxine Sodium (Synthroid -) 50 mcg PO DAILY@0700 [facility] Last Admin: 02/20/18 06:00 Dose: 50 mcg Lidocaine (Lidoderm Patch -) 1 patch TP DAILY [facility] Last Admin: 02/20/18 09:51 Dose: 1 patch Metoprolol Tartrate (Lopressor -) 25 mg PO BID [facility] Last Admin: 02/20/18 09:51 Dose: Not Given Miscellaneous (Lidoderm Patch Removal) 1 each MC DAILY@2200 [facility] Last Admin: 02/19/18 21:51 Dose: Not Given Morphine Sulfate (Morphine Sulfate) 2 mg IVPUSH Q4H PRN PRN Reason: PAIN LEVEL 1-3 Mupirocin (Bactroban Ointment (For Decolonization) -) 1 applic NS BID [facility] Stop: 02/23/18 21:59 Last Admin: 02/20/18 09:51 Dose: 1 applic Saliva Substitute (Mouthkote Solution -) 1 applic MM DAILY PRN PRN Reason: dry mouth Timolol Maleate (Timoptic 0.5%) 1 drop OD BID [facility] Last Admin: 02/20/18 09:50 Dose: 1 drop Tramadol HCl (Ultram -) 50 mg PO Q6H PRN PRN Reason: PAIN LEVEL 4 - 6 - Objective Vital Signs: Vital Signs Temperature 98.1 F 02/20/18 10:00 Pulse Rate 55 L 02/20/18 10:00 Respiratory Rate 15 02/20/18 10:00 Blood Pressure 158/67 02/20/18 10:00 O2 Sat by Pulse Oximetry (%) 99 02/20/18 08:00 Constitutional: Yes: No Distress, Calm Cardiovascular: Yes: Regular Rate and Rhythm Respiratory: Yes: CTA Bilaterally Gastrointestinal: Yes: Normal Bowel Sounds, Soft. No: Tenderness Edema: No Neurological: Yes: Alert ...Motor Strength: WNL Labs: CBC, BMP 02/20/18 05:30 02/20/18 05:30 INR, PTT INR 1.35 (0.82-1.09) H 02/17/18 21:15 Problem List - Problems (1) Subdural hemorrhage Code(s): I62.00 - NONTRAUMATIC SUBDURAL HEMORRHAGE, UNSPECIFIED (2) CAD (coronary artery disease) Code(s): I25.10 - ATHSCL HEART DISEASE OF [place] CORONARY ARTERY W/O ANG PCTRS Qualifiers: [place] vs. transplanted heart: burns [place] heart Associated angina: without angina (3) Acute renal insufficiency Code(s): N28.9 - DISORDER OF KIDNEY AND URETER, UNSPECIFIED (4) Hypothyroid Code(s): E03.9 - HYPOTHYROIDISM, UNSPECIFIED Qualifiers: Hypothyroidism type: other Qualified Code(s): E03.8 - Other specified hypothyroidism Assessment/Plan PLAN s/p craniotomy and evacuation of SDH Swallow eval noted Pt eval continue with current care renal function better
--- NOTE | 2018-02-20 12:16 | PN ---
Progress Note (short form) - Note Progress Note: surgery POD #2 Craniotomy with evacuation of SDH. Patient seen and examined at the bedside resting comfortably. Vital Signs Temp 97.9 F 02/20/18 12:00 Pulse 42 L 02/20/18 12:00 Resp 15 02/20/18 12:00 BP 148/64 02/20/18 12:00 Pulse Ox 99 02/20/18 08:00 Intake & Output 02/19/18 02/20/18 02/20/18 23:59 11:59 23:59 Intake Total 2125 625 Output Total 550 800 Balance 1575 -175 Intake: IV 1485 525 Normal Saline - 1,000 ml 1275 525 @ 75 mls/hr IV ASDIR KRISTY Rx#:[id number] Normodyne Injection - 1, 210 000 mg In Normal Saline - 800 ml @ 2 MG/MIN 120 mls/hr IV TITR KRISTY Rx#: [id number] IVPB 300 100 Oral 340 Output: Urine 550 800 Penny 550 800 Other: Voiding Method Indwelling Catheter Indwelling Catheter CBC, BMP 02/20/18 05:30 02/20/18 05:30 PE: resting comfortably, NAD, confused but easily follow commands unlabored resp on RA PEERRL Neuro: following commands, 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 His incision remains intact/aquacel dressing. No evidence of d/c or bleeding. B/L LE comartments soft, supple and non-tender with +2 pedal pulses. + dorsi/ plantar flexion. Problem List - Problems (1) S/P craniotomy Assessment/Plan: s/p Evacuation of SDH doing well and remains stable. 1) maintain Aquacell dressing, may apply clean dry dressing as needed 2) OOB with assist as tolerated- fall risk 3) pain mngt 4) d/c planning Evaluation and plan discussed with Dr. Nolasco Code(s): Z98.890 - OTHER SPECIFIED POSTPROCEDURAL STATES
--- NOTE | 2018-02-20 12:51 | PN ---
Progress Note, LOAN INSPECTOR - Note Progress Note: Tolerating puree and nectar thick. Aspiration risk as he talks and jokes/ laughs with food in oral cavity/pharynx. Greater risk with solids. 3 oz water still with responsive cough. Continue puree/nectar. Encourage pt not to speak until after he swallows. Neck roll for head support to eliminate head extension which opens airway and increases risk of aspiration. Defer diet upgrade due to increased aspiration risk. Pt enjoys present diet and is tolerating it well
--- NOTE | 2018-02-20 14:14 | PN ---
Teaching Attending Note Name of Resident: Farhan Armijo ATTENDING PHYSICIAN STATEMENT I saw and evaluated the patient. I reviewed the resident's note and discussed the case with the resident. I agree with the resident's findings and plan as documented. SUBJECTIVE: Patient seen and examined in the ICU. POD #2: Left craniotomy and evacuation of a Sudural hematoma Slepy but easily arousable. Interactive but remains confused. Denies CP or SOB. Denies DUEÑAS, BOV, dizziness, etc. Intake & Output 02/17/18 02/18/18 02/19/18 02/20/18 23:59 23:59 23:59 23:59 Intake Total 9457 599 6527 1275 Output Total 1550 5811 720 3334 Balance -150 -530 2170 -25 Weight 127 lb 132 lb 6 oz Last Vital Signs Temp Pulse Resp BP Pulse Ox 97.9 F 42 L 15 148/64 99 02/20/18 12:00 02/20/18 12:00 02/20/18 12:00 02/20/18 12:00 02/20/18 08:00 Active Medications Acetaminophen (Tylenol -) 650 mg PO Q6H PRN PRN Reason: FEVER Acetaminophen (Ofirmev Injection -) 1,000 mg IVPB Q6H PRN PRN Reason: PAIN LEVEL 1 - 3 Last Admin: 02/19/18 22:00 Dose: 1,000 mg Brimonidine Tartrate (Alphagan 0.2% -) 1 drop OD BID [facility] Last Admin: 02/20/18 09:50 Dose: 1 drop Chlorhexidine Gluconate (Hibiclens For Decolonization -) 1 applic TP HS [facility] Last Admin: 02/19/18 22:00 Dose: 1 applic Chlorthalidone (Hygroton -) 25 mg PO DAILY [facility] Gabapentin (Neurontin -) 100 mg PO TID [facility] Last Admin: 02/20/18 13:38 Dose: 100 mg Levetiracetam (Keppra Injection -) 500 mg IVPB BID [facility] Last Admin: 02/20/18 09:49 Dose: 500 mg Levothyroxine Sodium (Synthroid -) 50 mcg PO DAILY@0700 [facility] Last Admin: 02/20/18 06:00 Dose: 50 mcg Lidocaine (Lidoderm Patch -) 1 patch TP DAILY [facility] Last Admin: 02/20/18 09:51 Dose: 1 patch Metoprolol Tartrate (Lopressor -) 25 mg PO BID [facility] Last Admin: 02/20/18 09:51 Dose: Not Given Miscellaneous (Lidoderm Patch Removal) 1 each MC DAILY@2200 [facility] Last Admin: 02/19/18 21:51 Dose: Not Given Morphine Sulfate (Morphine Sulfate) 2 mg IVPUSH Q4H PRN PRN Reason: PAIN LEVEL 1-3 Mupirocin (Bactroban Ointment (For Decolonization) -) 1 applic NS BID [facility] Stop: 02/23/18 21:59 Last Admin: 02/20/18 09:51 Dose: 1 applic Saliva Substitute (Mouthkote Solution -) 1 applic MM DAILY PRN PRN Reason: dry mouth Timolol Maleate (Timoptic 0.5%) 1 drop OD BID [facility] Last Admin: 02/20/18 09:50 Dose: 1 drop Tramadol HCl (Ultram -) 50 mg PO Q6H PRN PRN Reason: PAIN LEVEL 4 - 6 General Appearance: Yes: Awake and alert, NAD HEENT: (-) Pallor, left pupillary changes, (-) Icterus Neck: positive: Trachea midline, Supple. negative: Tender, Rigid Respiratory/Chest: positive: Clear, (-) Crackles, Wheezing Cardiovascular: positive: Regular Rhythm, Regular Rate. negative: Edema, JVD, Murmur Gastrointestinal/Abdominal: positive: Normal Bowel Sounds, Soft. negative: Organomegaly, Pulsatile Mass, Guarding Musculoskeletal: positive: Normal Inspection. negative: Decreased Range of Motion, Vertebral Tenderness Extremity: positive: Normal Capillary Refill, Normal Inspection, Normal Range of Motion. negative: Tender, Cyanosis Integumentary: positive: Normal Color, Dry, Warm. negative: Erythema, Rash, Bruising Neurologic: No facial droop, non-focal Laboratory Results - last 24 hr 02/20/18 02/20/18 05:30 05:30 WBC 7.3 RBC 3.12 L Hgb 9.4 L Hct 27.1 L D MCV 87.0 MCH 30.3 MCHC 34.8 RDW 13.9 Plt Count 172 MPV 7.3 L Absolute Neuts (auto) 4.5 Neutrophils % 60.8 D Lymphocytes % 27.2 D Monocytes % 10.2 Eosinophils % 1.5 D Basophils % 0.3 D Nucleated RBC % 0 Sodium 147 H Potassium 4.3 Chloride 117 H Carbon Dioxide 21 Anion Gap 9 BUN 29 H Creatinine 1.8 H Creat Clearance w eGFR 35.87 Random Glucose 75 D Calcium 7.8 L Phosphorus 1.9 L D Magnesium 2.0 Total Bilirubin 0.6 AST 58 H D ALT 14 Alkaline Phosphatase 45 D Total Protein 5.1 L Albumin 2.9 L IMP: POD #2: Left craniotomy and evacuation of a Sudural hematoma Acute Left SDH 1.7-1.9 cm mass effect and shift. HTN Hypothyroidism AAA CAD PLAN: Follow Neuro exam O2 as needed Aspiration precautions SCDs Tiny BP monitoring: keep below [address] Pinedo Critical care time spent in reviewing chart, evaluating patient and formulating plan - 36 minutes.
[2018-02-20] MEDS ORDERED: PT OWN MED DRAWER 7, Y5N ONE (14:17)
[2018-02-20] MEDS: CHLORTHALIDONE 25 MG TABLET PO SCH (16:15)
--- NOTE | 2018-02-20 16:21 | PN ---
Progress Note (short form) - Note Progress Note: Renal follow up for MALINDA/CKD Pt seen and examined in the ICU sleeping but arouseable no overnight events on IVF Vital Signs Temperature 98.1 F 02/20/18 16:00 Pulse Rate 45 L 02/20/18 16:00 Respiratory Rate 16 02/20/18 16:00 Blood Pressure 156/57 02/20/18 16:00 O2 Sat by Pulse Oximetry (%) 99 02/20/18 08:00 Intake & Output 02/17/18 02/18/18 02/19/18 02/20/18 23:59 23:59 23:59 23:59 Intake Total 0046 822 2490 1425 Output Total 1550 8983 644 0206 Balance -150 -530 2170 125 Weight 57.606 kg 60.044 kg NAD Dry MM dressing over head Neck supple, no JVD RRR, no M/R no rales soft NT/ND no LE edema, clubbing or cyanosis CBC, BMP 02/20/18 05:30 02/20/18 05:30 Current Medications Acetaminophen (Tylenol -) 650 mg PO Q6H PRN PRN Reason: FEVER Brimonidine Tartrate (Alphagan 0.2% -) 1 drop OD BID [facility] Last Admin: 02/20/18 09:50 Dose: 1 drop Chlorhexidine Gluconate (Hibiclens For Decolonization -) 1 applic TP HS [facility] Last Admin: 02/19/18 22:00 Dose: 1 applic Chlorthalidone (Hygroton -) 25 mg PO DAILY [facility] Last Admin: 02/20/18 16:15 Dose: 25 mg Gabapentin (Neurontin -) 100 mg PO TID [facility] Last Admin: 02/20/18 13:38 Dose: 100 mg Levetiracetam (Keppra Injection -) 500 mg IVPB BID [facility] Last Admin: 02/20/18 09:49 Dose: 500 mg Levothyroxine Sodium (Synthroid -) 50 mcg PO DAILY@0700 [facility] Last Admin: 02/20/18 06:00 Dose: 50 mcg Lidocaine (Lidoderm Patch -) 1 patch TP DAILY [facility] Last Admin: 02/20/18 09:51 Dose: 1 patch Metoprolol Tartrate (Lopressor -) 25 mg PO BID [facility] Last Admin: 02/20/18 09:51 Dose: Not Given Miscellaneous (Lidoderm Patch Removal) 1 each DAILY@2200 [facility] Last Admin: 02/19/18 21:51 Dose: Not Given Morphine Sulfate (Morphine Sulfate) 2 mg IVPUSH Q4H PRN PRN Reason: PAIN LEVEL 1-3 Mupirocin (Bactroban Ointment (For Decolonization) -) 1 applic NS BID [facility] Stop: 02/23/18 21:59 Last Admin: 02/20/18 09:51 Dose: 1 applic Saliva Substitute (Mouthkote Solution -) 1 applic MM DAILY PRN PRN Reason: dry mouth Timolol Maleate (Timoptic 0.5%) 1 drop OD BID [facility] Last Admin: 02/20/18 09:50 Dose: 1 drop Tramadol HCl (Ultram -) 50 mg PO Q6H PRN PRN Reason: PAIN LEVEL 4 - 6 87 year old Gentleman with PMhx of Hypertension, CAD, AAA s/p repair earlier this year, Chronic lower back pain, Spinal Stenosis who presented with increased Lower back pain and LE weakness with Cr of 2. #MALINDA on CKD vs. Progressive CKD #Proteinuria #Subdrual Hematoma Renal function stable at this time and pt with good urine output can d/c IVF as BP is high and pt with ICH BP meds changed to oral, can consider starting CCB for better BP control (i.e. Nifedipine 30mg daily) Trend renal function and electrolytes Neurosurgery follow up ICU monitoring Jay Diaz DO
--- NOTE | 2018-02-20 18:46 | PN ---
Physical Exam: SUBJECTIVE: Patient seen and examined OBJECTIVE: Vital Signs Period Temp Pulse Resp BP Sys/Michel Pulse Ox Last 24 Hr 97.9 F-98.6 F 40-82 13-18 126-170/57-90 99-99 GENERAL: The patient is awake, alert, and fully oriented, in no acute distress. HEAD: Normal with no signs of trauma. EYES: PERRL, extraocular movements intact, sclera anicteric, conjunctiva clear. No ptosis. ENT: Ears normal, nares patent, oropharynx clear without exudates, moist mucous membranes. NECK: Trachea midline, full range of motion, supple. LUNGS: Breath sounds equal, clear to auscultation bilaterally, no wheezes, no crackles, no accessory muscle use. HEART: Regular rate and rhythm, S1, S2 without murmur, rub or gallop. ABDOMEN: Soft, nontender, nondistended, normoactive bowel sounds, no guarding, no rebound, no hepatosplenomegaly, no masses. EXTREMITIES: 2+ pulses, warm, well-perfused, no edema. NEUROLOGICAL: Cranial nerves II through XII grossly intact. Normal speech, gait not observed. PSYCH: Normal mood, normal affect. SKIN: Warm, dry, normal turgor, no rashes or lesions noted Laboratory Results - last 24 hr 02/20/18 02/20/18 05:30 05:30 WBC 7.3 RBC 3.12 L Hgb 9.4 L Hct 27.1 L D MCV 87.0 MCH 30.3 MCHC 34.8 RDW 13.9 Plt Count 172 MPV 7.3 L Absolute Neuts (auto) 4.5 Neutrophils % 60.8 D Lymphocytes % 27.2 D Monocytes % 10.2 Eosinophils % 1.5 D Basophils % 0.3 D Nucleated RBC % 0 Sodium 147 H Potassium 4.3 Chloride 117 H Carbon Dioxide 21 Anion Gap 9 BUN 29 H Creatinine 1.8 H Creat Clearance w eGFR 35.87 Random Glucose 75 D Calcium 7.8 L Phosphorus 1.9 L D Magnesium 2.0 Total Bilirubin 0.6 AST 58 H D ALT 14 Alkaline Phosphatase 45 D Total Protein 5.1 L Albumin 2.9 L Active Medications Generic Name Dose Route Start Last Admin Trade Name Freq PRN Reason Stop Dose Admin Acetaminophen 650 mg 02/19/18 18:25 Tylenol - PO Q6H PRN FEVER Brimonidine Tartrate 1 drop 02/19/18 22:00 02/20/18 09:50 Alphagan 0.2% - OD 1 drop BID K[facility]ST[facility] Administration Chlorhexidine Gluconate 1 applic 02/19/18 22:00 02/19/18 22:00 Hibiclens For Decolonization - TP 1 applic HS KRISTY Administration Chlorthalidone 25 mg 02/20/18 13:00 02/20/18 16:15 Hygroton - PO 25 mg DAILY K[facility]ST[facility] Administration Gabapentin 100 mg 02/19/18 22:00 02/20/18 13:38 Neurontin - PO 100 mg TID KRISTY Administration Levetiracetam 500 mg 02/19/18 22:00 02/20/18 09:49 Keppra Injection - IVPB 500 mg BID [facility] Administration Levothyroxine Sodium 50 mcg 02/20/18 07:00 02/20/18 06:00 Synthroid - PO 50 mcg DAILY@0700 [facility] Administration Lidocaine 1 patch 02/20/18 10:00 02/20/18 09:51 Lidoderm Patch - TP 1 patch DAILY [facility] Administration Metoprolol Tartrate 25 mg 02/19/18 22:00 02/20/18 09:51 Lopressor - PO Not Given BID [facility] Miscellaneous 1 each 02/19/18 22:00 02/19/18 21:51 Lidoderm Patch Removal MC Not Given DAILY@2200 K[facility]ST[facility] Morphine Sulfate 2 mg 02/19/18 18:25 Morphine Sulfate IVPUSH Q4H PRN PAIN LEVEL 1-3 Mupirocin 1 applic 02/19/18 22:00 02/20/18 09:51 Bactroban Ointment (For Decolonization) - NS 02/23/18 21:59 1 applic BID [facility] Administration Saliva Substitute 1 applic 02/19/18 18:25 Mouthkote Solution - MM DAILY PRN dry mouth Timolol Maleate 1 drop 02/19/18 22:00 02/20/18 09:50 Timoptic 0.5% OD 1 drop BID [facility] Administration Tramadol HCl 50 mg 02/19/18 18:25 Ultram - PO Q6H PRN PAIN LEVEL 4 - 6 ASSESSMENT/PLAN: 87 y/o gentleman with a PMH of HTN, Dementia, HLD, 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 Neuro- Disoriented Pt s/p subdural hematoma evacuated by Dr Nolasco. Keppra 750 mg IVPB BID for seizure ppx. CT Head 02/18/18---> No Discrete infarct seen. Periventricular white matter microvascular ischemic gliosis. No Obhstructive Hydrocephalus. No Gross soft tissue or mass noted. Hypertensive Urgency: Lopressor 25 mg PO BID Chlorthalidone 25 mg PO Daily Renal BUN/CR 29/1.8 today 02/20/18. Continue to trend renal function and electrolytes. Hypothyroidism: -Levothyroxine 50 mcg PO Daily FEN No Fluids Monitor Electrolytes Dysphagia Puree DVT ppx: SCD's Dispo: Monitor in ICU. Visit type - Emergency Visit Emergency Visit: Yes ED Registration Date: 02/19/18 Care time: The patient presented to the Emergency Department on the above date and was hospitalized for further evaluation of their emergent condition. - New Patient This patient is new to me today: No - Critical Care Critical Care patient: Yes Total Critical Care Time (in minutes): 36 Critical Care Statement: The care of this patient involved high complexity decision making to prevent further life threatening deterioration of the patient 's condition and/or to evaluate & treat vital organ system(s) failure or risk of failure.
[2018-02-20] MEDS ORDERED: amLODIPine BESYLATE 10 MG TABLET (FP) PO ONE (20:45)
[2018-02-20] MEDS: CHLORHEXIDINE GLUCONATE 4% CLEANSER FOR DECOLONIZATION TP SCH (22:25)
[2018-02-20] MEDS: LIDOCAINE PATCH REMOVAL MC SCH (22:27)
[2018-02-21] MEDS: LEVOTHYROXINE NA 50 MCG TABLET (FP) PO SCH (06:54)
[2018-02-21] MEDS: GABAPENTIN 100 MG CAPSULE (FP) PO SCH ×3 (06:54→22:25)
[2018-02-21 08:51] LABS: BASO % 0.4 % (0-2.0); EOS % 2.8 % (0-4.5); HEMATOCRIT 31.8 % (35.4-49); HEMOGLOBIN 10.9 GM/dL (11.7-16.9); LYMPH % 23.9 % (8-40); MCH 29.8 pg (25.7-33.7); MCHC 34.2 g/dl (32.0-35.9); MEAN CELL VOLUME 87.1 fl (80-96); MEAN PLT VOLUME 7.2 fl (7.5-11.1); MONO % 10.4 % (3.8-10.2); NEUT % 62.5 % (42.8-82.8); PLATELET COUNT 203 K/MM3 (134-434); RBC 3.65 M/mm3 (4.00-5.60); RDW 13.9 % (11.9-15.9); WHITE BLOOD COUNT 7.8 K/mm3 (4.0-10.0)
[2018-02-21 09:01] LABS: ALBUMIN 3.1 g/dl (3.4-5.0); ALK PHOS 51 U/L (45-117); ANION GAP 8 (8-16); BILIRUBIN,TOTAL 0.7 mg/dL (0.2-1.0); BLOOD UREA NITROGEN 22 mg/dL (7-18); CALCIUM 8.4 mg/dL (8.5-10.1); CHLORIDE 114 mmol/L (98-107); CO2 25 mmol/L (21-32); CREATININE 1.6 mg/dL (0.7-1.3); GLUCOSE,RANDOM 83 mg/dL (74-106); POTASSIUM 3.5 mmol/L (3.5-5.1); SGOT/AST 53 U/L (15-37); SGPT/ALT 14 U/L (12-78); SODIUM 147 mmol/L (136-145); TOT PROT 5.6 g/dl (6.4-8.2)
[2018-02-21] MEDS ORDERED: hydrALAZINE HCL 20 MG/ML VIAL IVPUSH PRN (09:16)
[2018-02-21] MEDS ORDERED: PT OWN MED DRAWER 7, Y5N ONE ×2 (09:53→22:23)
--- NOTE | 2018-02-21 09:54 | PN ---
Progress Note, Physician Chief Complaint: s/p craniotomy Pt is awake, moves all limbs no headaches confused able to eat - Current Medication List Current Medications: Active Medications Acetaminophen (Tylenol -) 650 mg PO Q6H PRN PRN Reason: FEVER Brimonidine Tartrate (Alphagan 0.2% -) 1 drop OD BID [facility] Last Admin: 02/20/18 22:25 Dose: 1 drop Chlorhexidine Gluconate (Hibiclens For Decolonization -) 1 applic TP HS [facility] Last Admin: 02/20/18 22:25 Dose: 1 applic Chlorthalidone (Hygroton -) 25 mg PO DAILY [facility] Last Admin: 02/20/18 16:15 Dose: 25 mg Docusate Sodium (Colace -) 100 mg PO DAILY [facility] Gabapentin (Neurontin -) 100 mg PO TID [facility] Last Admin: 02/21/18 06:54 Dose: 100 mg Hydralazine HCl (Apresoline Injection -) 10 mg IVPUSH Q6H PRN PRN Reason: HYPERTENSION Levetiracetam (Keppra Injection -) 500 mg IVPB BID [facility] Last Admin: 02/20/18 22:24 Dose: 500 mg Levothyroxine Sodium (Synthroid -) 50 mcg PO DAILY@0700 [facility] Last Admin: 02/21/18 06:54 Dose: 50 mcg Lidocaine (Lidoderm Patch -) 1 patch TP DAILY [facility] Last Admin: 02/20/18 09:51 Dose: 1 patch Metoprolol Tartrate (Lopressor -) 25 mg PO BID [facility] Last Admin: 02/20/18 22:25 Dose: Not Given Miscellaneous (Lidoderm Patch Removal) 1 each MC DAILY@2200 [facility] Last Admin: 02/20/18 22:27 Dose: Not Given Morphine Sulfate (Morphine Sulfate) 2 mg IVPUSH Q4H PRN PRN Reason: PAIN LEVEL 1-3 Mupirocin (Bactroban Ointment (For Decolonization) -) 1 applic NS BID [facility] Stop: 02/23/18 21:59 Last Admin: 02/20/18 22:26 Dose: 1 applic Saliva Substitute (Mouthkote Solution -) 1 applic MM DAILY PRN PRN Reason: dry mouth Timolol Maleate (Timoptic 0.5%) 1 drop OD BID [facility] Last Admin: 02/20/18 22:25 Dose: 1 drop Tramadol HCl (Ultram -) 50 mg PO Q6H PRN PRN Reason: PAIN LEVEL 4 - 6 Last Admin: 02/20/18 23:24 Dose: 50 mg - Objective Vital Signs: Vital Signs Temperature 98.0 F 02/21/18 02:00 Pulse Rate 61 02/21/18 06:00 Respiratory Rate 16 02/21/18 06:00 Blood Pressure 170/71 02/21/18 06:00 O2 Sat by Pulse Oximetry (%) 99 02/20/18 20:25 Constitutional: Yes: No Distress Cardiovascular: Yes: Regular Rate and Rhythm Respiratory: Yes: CTA Bilaterally Gastrointestinal: Yes: Normal Bowel Sounds, Soft. No: Tenderness Edema: No Labs: CBC, BMP 02/21/18 08:36 02/21/18 08:36 INR, PTT INR 1.35 (0.82-1.09) H 02/17/18 21:15 Problem List - Problems (1) Subdural hemorrhage Code(s): I62.00 - NONTRAUMATIC SUBDURAL HEMORRHAGE, UNSPECIFIED (2) CAD (coronary artery disease) Code(s): I25.10 - ATHSCL HEART DISEASE OF [place] CORONARY ARTERY W/O ANG PCTRS Qualifiers: [place] vs. transplanted heart: [place] heart Associated angina: without angina (3) Acute renal insufficiency Code(s): N28.9 - DISORDER OF KIDNEY AND URETER, UNSPECIFIED (4) Hypothyroid Code(s): E03.9 - HYPOTHYROIDISM, UNSPECIFIED Qualifiers: Hypothyroidism type: other Qualified Code(s): E03.8 - Other specified hypothyroidism Assessment/Plan PLAN s/p craniotomy and evacuation of SDH renal function better Pt eval continue with current care
[2018-02-21] MEDS: DOCUSATE SODIUM 100 MG CAPSULE (FP) PO SCH (09:57)
[2018-02-21] MEDS: MUPIROCIN 2% TOPICAL OINTMENT FOR DECOLONIZATION NS SCH ×2 (09:58→22:28)
[2018-02-21] MEDS: METOPROLOL TARTRATE 25 MG TABLET (FP) PO SCH ×2 (09:59→22:26)
[2018-02-21] MEDS: LIDOCAINE 5% TOPICAL PATCH TP SCH (09:59)
[2018-02-21] MEDS: CHLORTHALIDONE 25 MG TABLET PO SCH (09:59)
[2018-02-21] MEDS: levETIRAcetam 500 MG/5 ML INJECTION VIAL IVPB SCH ×2 (09:59→22:25)
[2018-02-21] MEDS: TIMOLOL 0.5% OPHTHALMIC SOL 5 ML BOTTLE OD SCH ×2 (10:03→22:27)
[2018-02-21] MEDS: BRIMONIDINE TARTRATE 0.2% OPHTHALMIC 5 ML BOTTLE OD SCH ×2 (10:03→22:27)
--- NOTE | 2018-02-21 10:04 | PN ---
Progress Note (short form) - Note Progress Note: Neurology History of Present Illness Initial Comments: 87 YOM with h/o HTN, hypothyroidism, CAD, AAA with repair earlier this year, and chronic lumbar back pain and spinal stenosis noted on imaging 3 years ago, who presented to the ED with increased chronic low back pain for the past 4 days with worsening of his chronic BLE weakness. His attempted to get him up from his bed but would not get up, which is abnormal for him. He stated his legs were too weak to stand or walk. He was admitted to the hospital and CT L spine showed degenerative changes. On night of admission, noted to have altered mental status and CT head completed which I reviewed and showed acute SDH 1.7- 1.9cm in size per report with mass effect and right to left shift. NSGY completed surgical intervention as documented. Remains ICU and under close monitoring. BPs during my visit are > 170 systolic. Discussed with nurse. Remains on Keppra 750mg twice daily for now. No seizure events. Remains awake and alert for me today. Able to tell me he's in the hospital. Was not aware of date. Repeat CT head 02/18 with still midline some midline shift but evacuated blood products. His BP's are elevated and discussed with ICU team for tighter control though heart rate has been low (40's at times) making it difficult. Has been ordered for hydralazine. Active Medications Acetaminophen (Tylenol -) 650 mg PO Q6H PRN PRN Reason: FEVER Brimonidine Tartrate (Alphagan 0.2% -) 1 drop OD BID [facility] Last Admin: 02/20/18 22:25 Dose: 1 drop Chlorhexidine Gluconate (Hibiclens For Decolonization -) 1 applic TP HS [facility] Last Admin: 02/20/18 22:25 Dose: 1 applic Chlorthalidone (Hygroton -) 25 mg PO DAILY [facility] Last Admin: 02/20/18 16:15 Dose: 25 mg Docusate Sodium (Colace -) 100 mg PO DAILY [facility] Gabapentin (Neurontin -) 100 mg PO TID [facility] Last Admin: 02/21/18 06:54 Dose: 100 mg Hydralazine HCl (Apresoline Injection -) 10 mg IVPUSH Q6H PRN PRN Reason: HYPERTENSION Levetiracetam (Keppra Injection -) 500 mg IVPB BID [facility] Last Admin: 02/20/18 22:24 Dose: 500 mg Levothyroxine Sodium (Synthroid -) 50 mcg PO DAILY@0700 [facility] Last Admin: 02/21/18 06:54 Dose: 50 mcg Lidocaine (Lidoderm Patch -) 1 patch TP DAILY [facility] Last Admin: 02/20/18 09:51 Dose: 1 patch Metoprolol Tartrate (Lopressor -) 25 mg PO BID [facility] Last Admin: 02/20/18 22:25 Dose: Not Given Miscellaneous (Lidoderm Patch Removal) 1 each MC DAILY@2200 [facility] Last Admin: 02/20/18 22:27 Dose: Not Given Morphine Sulfate (Morphine Sulfate) 2 mg IVPUSH Q4H PRN PRN Reason: PAIN LEVEL 1-3 Mupirocin (Bactroban Ointment (For Decolonization) -) 1 applic NS BID [facility] Stop: 02/23/18 21:59 Last Admin: 02/20/18 22:26 Dose: 1 applic Saliva Substitute (Mouthkote Solution -) 1 applic MM DAILY PRN PRN Reason: dry mouth Timolol Maleate (Timoptic 0.5%) 1 drop OD BID [facility] Last Admin: 02/20/18 22:25 Dose: 1 drop Tramadol HCl (Ultram -) 50 mg PO Q6H PRN PRN Reason: PAIN LEVEL 4 - 6 Last Admin: 02/20/18 23:24 Dose: 50 mg *Physical Exam Vital Signs Period Temp Pulse Resp BP Sys/Michel Pulse Ox Last 24 Hr 97.9 F-98.2 F 40-68 13-21 148-180/57-83 99 - Physical Exam General Appearance: Yes: Nourished, Appropriately Dressed, Not answering questions, somnolent HEENT: positive: EOMI, Normal Voice, Hearing Grossly Normal, Other (right pupil round and reactive to light, left pupil fixed dilated nonreactive stated chronic d/t multiple surgeries and eye injury). negative: Scleral Icterus (R), Scleral Icterus (L), Nasal Congestion Neck: positive: Trachea midline, Supple. negative: Tender, Rigid Respiratory/Chest: positive: Lungs Clear, Normal Breath Sounds. negative: Respiratory Distress, Crackles, Rhonchi, Stridor, Wheezing Cardiovascular: positive: Regular Rhythm, Regular Rate. negative: Edema, JVD, Murmur Gastrointestinal/Abdominal: positive: Normal Bowel Sounds, Soft. negative: Tender, Organomegaly, Pulsatile Mass, Guarding Musculoskeletal: positive: Normal Inspection. negative: Decreased Range of Motion, Vertebral Tenderness Extremity: positive: Normal Capillary Refill, Normal Inspection, Normal Range of Motion. negative: Tender, Cyanosis Integumentary: positive: Normal Color, Dry, Warm. negative: Erythema, Rash, Bruising Neurologic: No facial droop, responds to voice, sensory intact to tactile stim , moves extremities but not participating in confrontation testing CBCD WBC 7.8 K/mm3 (4.0-10.0) 02/21/18 08:36 RBC 3.65 M/mm3 (4.00-5.60) L 02/21/18 08:36 Hgb 10.9 GM/dL (11.7-16.9) L 02/21/18 08:36 Hct 31.8 % (35.4-49) L D 02/21/18 08:36 MCV 87.1 fl (80-96) 02/21/18 08:36 MCHC 34.2 g/dl (32.0-35.9) 02/21/18 08:36 RDW 13.9 % (11.9-15.9) 02/21/18 08:36 Plt Count 203 K/MM3 (134-434) 02/21/18 08:36 MPV 7.2 fl (7.5-11.1) L 02/21/18 08:36 CMP Sodium 147 mmol/L (136-145) H 02/21/18 08:36 Potassium 3.5 mmol/L (3.5-5.1) 02/21/18 08:36 Chloride 114 mmol/L (98-107) H 02/21/18 08:36 Carbon Dioxide 25 mmol/L (21-32) 02/21/18 08:36 Anion Gap 8 (8-16) 02/21/18 08:36 BUN 22 mg/dL (7-18) H 02/21/18 08:36 Creatinine 1.6 mg/dL (0.7-1.3) H 02/21/18 08:36 Creat Clearance w eGFR 41.09 (>60) 02/21/18 08:36 Calcium 8.4 mg/dL (8.5-10.1) L 02/21/18 08:36 Total Bilirubin 0.7 mg/dL (0.2-1.0) 02/21/18 08:36 AST 53 U/L (15-37) H 02/21/18 08:36 ALT 14 U/L (12-78) 02/21/18 08:36 Alkaline Phosphatase 51 U/L (45-117) 02/21/18 08:36 Total Protein 5.6 g/dl (6.4-8.2) L 02/21/18 08:36 Albumin 3.1 g/dl (3.4-5.0) L 02/21/18 08:[address] L spine reviewed Medical Decision Making 87 YOM with h/o HTN, hypothyroidism, CAD, AAA with repair earlier this year, and chronic lumbar back pain and spinal stenosis noted on imaging 3 years ago, who presented to the ED with increased chronic low back pain for the past 4 days with worsening of his chronic BLE weakness. His attempted to get him up from his bed but would not get up, which is abnormal for him. He stated his legs were too weak to stand or walk. He was admitted to the hospital and CT L spine showed degenerative changes. On night of admission, noted to have altered mental status and CT head completed which I reviewed and showed acute SDH 1.7- 1.9cm in size per report with mass effect and right to left shift. NSGY consulted, reportedly for surgical intervention per resident notes. Remains ICU and under close monitoring. BPs during my visit are > 170 systolic. Discussed with ICU staff. Remains on Keppra 750mg twice daily for now. Can be taperred to 500mg twice daily on discharge, then discontinued in 6-8 weeks. No seizure events. Remains awake and alert for me today. Able to tell me he's in the hospital. Was not aware of date. Continue to hold any antiplatelet medication ( on ASA, Plavix at home) Continue close monitoring, stat CT head for any deterioration in mental status. His BP's are elevated and discussed with ICU team for tighter control though heart rate has been low (40's at times) making it difficult. Has been ordered for hydralazine.. Critical care 40 mins.
[2018-02-21 10:43] LABS: PHOSPHOROUS 1.9 mg/dL (2.5-4.9)
[2018-02-21] MEDS: amLODIPine BESYLATE 5 MG TABLET (FP) PO SCH (12:05)
--- NOTE | 2018-02-21 13:12 | PN ---
Teaching Attending Note Name of Resident: Farhan Armijo ATTENDING PHYSICIAN STATEMENT I saw and evaluated the patient. I reviewed the resident's note and discussed the case with the resident. I agree with the resident's findings and plan as documented. SUBJECTIVE: Patient seen and examined in the ICU. POD #3: Left craniotomy and evacuation of a Sudural hematoma More awake and alert today. Knows he is in the hospital. Remains confused. Denies CP or SOB. Denies DUEÑAS, BOV, dizziness, etc. Intake & Output 02/18/18 02/19/18 02/20/18 02/21/18 23:59 23:59 23:59 23:59 Intake Total 595 3020 1425 260 Output Total 5897 338 0612 2600 Balance -530 2170 -575 -2340 Weight 127 lb 132 lb 6 oz 137 lb 9.095 oz 132 lb 0.91 oz Last Vital Signs Temp Pulse Resp BP Pulse Ox 98.8 F 52 L 19 157/59 99 02/21/18 10:00 02/21/18 12:00 02/21/18 12:00 02/21/18 12:00 02/21/18 09:00 Active Medications Acetaminophen (Tylenol -) 650 mg PO Q6H PRN PRN Reason: FEVER Amlodipine Besylate (Norvasc -) 5 mg PO DAILY [facility] Last Admin: 02/21/18 12:05 Dose: 5 mg Brimonidine Tartrate (Alphagan 0.2% -) 1 drop OD BID [facility] Last Admin: 02/21/18 10:03 Dose: 1 drop Chlorhexidine Gluconate (Hibiclens For Decolonization -) 1 applic TP HS [facility] Last Admin: 02/20/18 22:25 Dose: 1 applic Chlorthalidone (Hygroton -) 25 mg PO DAILY [facility] Last Admin: 02/21/18 09:59 Dose: 25 mg Docusate Sodium (Colace -) 100 mg PO DAILY [facility] Last Admin: 02/21/18 09:57 Dose: 100 mg Gabapentin (Neurontin -) 100 mg PO TID [facility] Last Admin: 02/21/18 06:54 Dose: 100 mg Levetiracetam (Keppra Injection -) 500 mg IVPB BID [facility] Last Admin: 02/21/18 09:59 Dose: 500 mg Levothyroxine Sodium (Synthroid -) 50 mcg PO DAILY@0700 [facility] Last Admin: 02/21/18 06:54 Dose: 50 mcg Lidocaine (Lidoderm Patch -) 1 patch TP DAILY [facility] Last Admin: 02/21/18 09:59 Dose: 1 patch Metoprolol Tartrate (Lopressor -) 25 mg PO BID [facility] Last Admin: 02/21/18 09:59 Dose: Not Given Miscellaneous (Lidoderm Patch Removal) 1 each MC DAILY@2200 [facility] Last Admin: 02/20/18 22:27 Dose: Not Given Morphine Sulfate (Morphine Sulfate) 2 mg IVPUSH Q4H PRN PRN Reason: PAIN LEVEL 1-3 Mupirocin (Bactroban Ointment (For Decolonization) -) 1 applic NS BID [facility] Stop: 02/23/18 21:59 Last Admin: 02/21/18 09:58 Dose: 1 applic Saliva Substitute (Mouthkote Solution -) 1 applic MM DAILY PRN PRN Reason: dry mouth Timolol Maleate (Timoptic 0.5%) 1 drop OD BID [facility] Last Admin: 02/21/18 10:03 Dose: 1 drop Tramadol HCl (Ultram -) 50 mg PO Q6H PRN PRN Reason: PAIN LEVEL 4 - 6 Last Admin: 02/20/18 23:24 Dose: 50 mg General Appearance: Yes: Awake and alert, NAD HEENT: (-) Pallor, left pupillary changes, (-) Icterus Neck: positive: Trachea midline, Supple. negative: Tender, Rigid Respiratory/Chest: positive: Clear, (-) Crackles, Wheezing Cardiovascular: positive: Regular Rhythm, Regular Rate. negative: Edema, JVD, Murmur Gastrointestinal/Abdominal: positive: Normal Bowel Sounds, Soft. negative: Organomegaly, Pulsatile Mass, Guarding Musculoskeletal: positive: Normal Inspection. negative: Decreased Range of Motion, Vertebral Tenderness Extremity: positive: Normal Capillary Refill, Normal Inspection, Normal Range of Motion. negative: Tender, Cyanosis Integumentary: positive: Normal Color, Dry, Warm. negative: Erythema, Rash, Bruising Neurologic: No facial droop, non-focal Laboratory Results - last 24 hr 02/21/18 02/21/18 02/21/18 08:36 08:36 09:55 WBC 7.8 RBC 3.65 L Hgb 10.9 L Hct 31.8 L D MCV 87.1 MCH 29.8 MCHC 34.2 RDW 13.9 Plt Count 203 MPV 7.2 L Absolute Neuts (auto) 4.9 Neutrophils % 62.5 Lymphocytes % 23.9 Monocytes % 10.4 H Eosinophils % 2.8 D Basophils % 0.4 Nucleated RBC % 0 Sodium 147 H Potassium 3.5 Chloride 114 H Carbon Dioxide 25 Anion Gap 8 BUN 22 H Creatinine 1.6 H Creat Clearance w eGFR 41.09 Random Glucose 83 Calcium 8.4 L Phosphorus 1.9 L Magnesium 2.0 Total Bilirubin 0.7 AST 53 H ALT 14 Alkaline Phosphatase 51 Total Protein 5.6 L Albumin 3.1 L IMP: POD #3: Left craniotomy and evacuation of a Sudural hematoma Acute Left SDH 1.7-1.9 cm mass effect and shift. HTN Hypothyroidism AAA CAD PLAN: Follow Neuro exam O2 as needed Aspiration precautions SCDs Tiny BP monitoring: keep below 140 Seizure precautions Stroke unit monitoring Dr Pinedo Critical care time spent in reviewing chart, evaluating patient and formulating plan - 36 minutes.
--- NOTE | 2018-02-21 14:07 | PN ---
Progress Note (short form) - Note Progress Note: covering dr hatfield 87 year old Gentleman with PMhx of Hypertension, CAD, AAA s/p repair earlier this year, Chronic lower back pain, Spinal Stenosis/increased Lower back pain and LE weakness with Cr of 2. MALINDA on CKD vs. Progressive CKD Proteinuria Subdrual Hematoma Current Medications Acetaminophen (Tylenol -) 650 mg PO Q6H PRN PRN Reason: FEVER Amlodipine Besylate (Norvasc -) 5 mg PO DAILY [facility] Last Admin: 02/21/18 12:05 Dose: 5 mg Brimonidine Tartrate (Alphagan 0.2% -) 1 drop OD BID [facility] Last Admin: 02/21/18 10:03 Dose: 1 drop Chlorhexidine Gluconate (Hibiclens For Decolonization -) 1 applic TP HS [facility] Last Admin: 02/20/18 22:25 Dose: 1 applic Chlorthalidone (Hygroton -) 25 mg PO DAILY [facility] Last Admin: 02/21/18 09:59 Dose: 25 mg Docusate Sodium (Colace -) 100 mg PO DAILY [facility] Last Admin: 02/21/18 09:57 Dose: 100 mg Gabapentin (Neurontin -) 100 mg PO TID [facility] Last Admin: 02/21/18 06:54 Dose: 100 mg Levetiracetam (Keppra Injection -) 500 mg IVPB BID [facility] Last Admin: 02/21/18 09:59 Dose: 500 mg Levothyroxine Sodium (Synthroid -) 50 mcg PO DAILY@0700 [facility] Last Admin: 02/21/18 06:54 Dose: 50 mcg Lidocaine (Lidoderm Patch -) 1 patch TP DAILY [facility] Last Admin: 02/21/18 09:59 Dose: 1 patch Metoprolol Tartrate (Lopressor -) 25 mg PO BID [facility] Last Admin: 02/21/18 09:59 Dose: Not Given Miscellaneous (Lidoderm Patch Removal) 1 each MC DAILY@2200 [facility] Last Admin: 02/20/18 22:27 Dose: Not Given Morphine Sulfate (Morphine Sulfate) 2 mg IVPUSH Q4H PRN PRN Reason: PAIN LEVEL 1-3 Mupirocin (Bactroban Ointment (For Decolonization) -) 1 applic NS BID [facility] Stop: 02/23/18 21:59 Last Admin: 02/21/18 09:58 Dose: 1 applic Saliva Substitute (Mouthkote Solution -) 1 applic MM DAILY PRN PRN Reason: dry mouth Timolol Maleate (Timoptic 0.5%) 1 drop OD BID [facility] Last Admin: 02/21/18 10:03 Dose: 1 drop Tramadol HCl (Ultram -) 50 mg PO Q6H PRN PRN Reason: PAIN LEVEL 4 - 6 Last Admin: 02/20/18 23:24 Dose: 50 mg Last Vital Signs Temp Pulse Resp BP Pulse Ox 98.8 F 52 L 19 157/59 99 02/21/18 10:00 02/21/18 12:00 02/21/18 12:00 02/21/18 12:00 02/21/18 09:00 CBC, BMP 02/21/18 08:36 02/21/18 08:36 malinda renal function improved hypernatremia 2/2 poor intake/dysphagia
--- NOTE | 2018-02-21 19:00 | PN ---
Physical Exam: SUBJECTIVE: Patient seen and examined this am and evening in icu. Pt oob and sitting in chair (feeding himself), eating dinner. Much more functional and alert. Girlfriend at bedside. OBJECTIVE: Vital Signs Period Temp Pulse Resp BP Sys/Michel Pulse Ox Last 24 Hr 97.2 F-98.8 F 40-72 14-21 150-180/59-76 99-99 GENERAL: Sitting in chair, appropriately responding to questions. HEAD: Bandage on head. EYES: EOMI. ENT: WNL NECK: No JVD. Trachea midline LUNGS: CTA B/L HEART: RRR. ABDOMEN: NT, ND, No HSM EXTREMITIES: No CCE. NEUROLOGICAL: Strength upper and lower extremities 4-5+. SKIN: No observed lesions or rashes. Laboratory Results - last 24 hr 02/21/18 02/21/18 02/21/18 08:36 08:36 09:55 WBC 7.8 RBC 3.65 L Hgb 10.9 L Hct 31.8 L D MCV 87.1 MCH 29.8 MCHC 34.2 RDW 13.9 Plt Count 203 MPV 7.2 L Absolute Neuts (auto) 4.9 Neutrophils % 62.5 Lymphocytes % 23.9 Monocytes % 10.4 H Eosinophils % 2.8 D Basophils % 0.4 Nucleated RBC % 0 Sodium 147 H Potassium 3.5 Chloride 114 H Carbon Dioxide 25 Anion Gap 8 BUN 22 H Creatinine 1.6 H Creat Clearance w eGFR 41.09 Random Glucose 83 Calcium 8.4 L Phosphorus 1.9 L Magnesium 2.0 Total Bilirubin 0.7 AST 53 H ALT 14 Alkaline Phosphatase 51 Total Protein 5.6 L Albumin 3.1 L Active Medications Generic Name Dose Route Start Last Admin Trade Name Freq PRN Reason Stop Dose Admin Acetaminophen 650 mg 02/19/18 18:25 Tylenol - PO Q6H PRN FEVER Amlodipine Besylate 5 mg 02/21/18 11:30 02/21/18 12:05 Norvasc - PO 5 mg DAILY [facility] Administration Brimonidine Tartrate 1 drop 02/19/18 22:00 02/21/18 10:03 Alphagan 0.2% - OD 1 drop BID [facility] Administration Chlorhexidine Gluconate 1 applic 02/19/18 22:00 02/20/18 22:25 Hibiclens For Decolonization - TP 1 applic HS [facility] Administration Chlorthalidone 25 mg 02/20/18 13:00 02/21/18 09:59 Hygroton - PO 25 mg DAILY [facility] Administration Docusate Sodium 100 mg 02/21/18 10:00 02/21/18 09:57 Colace - PO 100 mg DAILY [facility] Administration Gabapentin 100 mg 02/19/18 22:00 02/21/18 14:36 Neurontin - PO 100 mg TID [facility] Administration Levetiracetam 500 mg 02/19/18 22:00 02/21/18 09:59 Keppra Injection - IVPB 500 mg BID [facility] Administration Levothyroxine Sodium 50 mcg 02/20/18 07:00 02/21/18 06:54 Synthroid - PO 50 mcg DAILY@0700 [facility] Administration Lidocaine 1 patch 02/20/18 10:00 02/21/18 09:59 Lidoderm Patch - TP 1 patch DAILY [facility] Administration Metoprolol Tartrate 25 mg 02/19/18 22:00 02/21/18 09:59 Lopressor - PO Not Given BID [facility] Miscellaneous 1 each 02/19/18 22:00 02/20/18 22:27 Lidoderm Patch Removal MC Not Given DAILY@2200 [facility] Morphine Sulfate 2 mg 02/19/18 18:25 Morphine Sulfate IVPUSH Q4H PRN PAIN LEVEL 1-3 Mupirocin 1 applic 02/19/18 22:00 02/21/18 09:58 Bactroban Ointment (For Decolonization) - NS 02/23/18 21:59 1 applic BID [facility] Administration Saliva Substitute 1 applic 02/19/18 18:25 Mouthkote Solution - MM DAILY PRN dry mouth Timolol Maleate 1 drop 02/19/18 22:00 02/21/18 10:03 Timoptic 0.5% OD 1 drop BID [facility] Administration Tramadol HCl 50 mg 02/19/18 18:25 02/20/18 23:24 Ultram - PO 50 mg Q6H PRN Administration PAIN LEVEL 4 - 6 ASSESSMENT/PLAN: 87 y/o gentleman with a PMH of HTN, Dementia, HLD, 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 Neuro: Pt s/p subdural hematoma evacuated by Dr Nolasco. POD #3 Keppra 750 mg IVPB BID for seizure ppx. CT Head 02/18/18---> No Discrete infarct seen. Periventricular white matter microvascular ischemic gliosis. No Obhstructive Hydrocephalus. No Gross soft tissue or mass noted. Hypertensive Urgency: Started today on Norvasc 5 mg po daily Lopressor 25 mg PO BID-Not given due to Bradycardia Chlorthalidone 25 mg PO Daily Renal BUN/CR 22/1.6 today 02/20/18. Continue to trend renal function and electrolytes. Hypothyroidism: -Levothyroxine 50 mcg PO Daily FEN No Fluids Monitor Electrolytes Dysphagia Puree DVT ppx: SCD's Dispo: Monitor in ICU. Visit type - Emergency Visit Emergency Visit: Yes ED Registration Date: 02/19/18 Care time: The patient presented to the Emergency Department on the above date and was hospitalized for further evaluation of their emergent condition. - New Patient This patient is new to me today: No - Critical Care Critical Care patient: Yes Total Critical Care Time (in minutes): 35 Critical Care Statement: The care of this patient involved high complexity decision making to prevent further life threatening deterioration of the patient 's condition and/or to evaluate & treat vital organ system(s) failure or risk of failure.
[2018-02-21] MEDS: CHLORHEXIDINE GLUCONATE 4% CLEANSER FOR DECOLONIZATION TP SCH (22:28)
[2018-02-21] MEDS: LIDOCAINE PATCH REMOVAL MC SCH (22:28)
[2018-02-22 05:49] LABS: HEMATOCRIT 32.9 % (35.4-49); HEMOGLOBIN 11.5 GM/dL (11.7-16.9); MCH 29.9 pg (25.7-33.7); MCHC 34.9 g/dl (32.0-35.9); MEAN CELL VOLUME 85.7 fl (80-96); MEAN PLT VOLUME 7.1 fl (7.5-11.1); PLATELET COUNT 221 K/MM3 (134-434); RBC 3.83 M/mm3 (4.00-5.60); RDW 13.6 % (11.9-15.9); WHITE BLOOD COUNT 7.3 K/mm3 (4.0-10.0)
[2018-02-22] MEDS: LEVOTHYROXINE NA 50 MCG TABLET (FP) PO SCH (06:14)
[2018-02-22] MEDS: GABAPENTIN 100 MG CAPSULE (FP) PO SCH ×3 (06:14→21:46)
[2018-02-22 06:20] LABS: ALBUMIN 3.2 g/dl (3.4-5.0); ANION GAP 9 (8-16); BLOOD UREA NITROGEN 21 mg/dL (7-18); CALCIUM 8.5 mg/dL (8.5-10.1); CHLORIDE 109 mmol/L (98-107); CO2 26 mmol/L (21-32); CREATININE 1.6 mg/dL (0.7-1.3); GLUCOSE,RANDOM 83 mg/dL (74-106); MAGNESIUM 1.8 mg/dL (1.8-2.4); POTASSIUM 3.3 mmol/L (3.5-5.1); SODIUM 144 mmol/L (136-145)
[2018-02-22] MEDS: DOCUSATE SODIUM 100 MG CAPSULE (FP) PO SCH (09:29)
[2018-02-22] MEDS: amLODIPine BESYLATE 5 MG TABLET (FP) PO SCH (09:29)
[2018-02-22] MEDS: levETIRAcetam 500 MG/5 ML INJECTION VIAL IVPB SCH ×2 (09:30→21:45)
[2018-02-22] MEDS: LIDOCAINE 5% TOPICAL PATCH TP SCH (09:30)
[2018-02-22] MEDS: METOPROLOL TARTRATE 25 MG TABLET (FP) PO SCH ×2 (09:30→21:45)
[2018-02-22] MEDS: CHLORTHALIDONE 25 MG TABLET PO SCH (09:32)
[2018-02-22] MEDS: BRIMONIDINE TARTRATE 0.2% OPHTHALMIC 5 ML BOTTLE OD SCH ×2 (09:53→22:00)
[2018-02-22] MEDS: TIMOLOL 0.5% OPHTHALMIC SOL 5 ML BOTTLE OD SCH ×2 (09:53→22:00)
[2018-02-22] MEDS: MUPIROCIN 2% TOPICAL OINTMENT FOR DECOLONIZATION NS SCH ×2 (09:54→21:44)
--- NOTE | 2018-02-22 11:16 | PN ---
Progress Note, Physician Chief Complaint: s/p craniotomy Pt is awake, moves all limbs no headaches confused able to eat - Current Medication List Current Medications: Active Medications Acetaminophen (Tylenol -) 650 mg PO Q6H PRN PRN Reason: FEVER Amlodipine Besylate (Norvasc -) 5 mg PO DAILY [facility] Last Admin: 02/22/18 09:29 Dose: 5 mg Brimonidine Tartrate (Alphagan 0.2% -) 1 drop OD BID [facility] Last Admin: 02/22/18 09:53 Dose: 1 drop Chlorhexidine Gluconate (Hibiclens For Decolonization -) 1 applic TP HS [facility] Last Admin: 02/21/18 22:28 Dose: 1 applic Chlorthalidone (Hygroton -) 25 mg PO DAILY [facility] Last Admin: 02/22/18 09:32 Dose: 25 mg Docusate Sodium (Colace -) 100 mg PO DAILY [facility] Last Admin: 02/22/18 09:29 Dose: 100 mg Gabapentin (Neurontin -) 100 mg PO TID [facility] Last Admin: 02/22/18 06:14 Dose: 100 mg Levetiracetam (Keppra Injection -) 500 mg IVPB BID [facility] Last Admin: 02/22/18 09:30 Dose: 500 mg Levothyroxine Sodium (Synthroid -) 50 mcg PO DAILY@0700 [facility] Last Admin: 02/22/18 06:14 Dose: 50 mcg Lidocaine (Lidoderm Patch -) 1 patch TP DAILY [facility] Last Admin: 02/22/18 09:30 Dose: 1 patch Metoprolol Tartrate (Lopressor -) 25 mg PO BID [facility] Last Admin: 02/22/18 09:30 Dose: 25 mg Miscellaneous (Lidoderm Patch Removal) 1 each MC DAILY@2200 [facility] Last Admin: 02/21/18 22:28 Dose: 1 each Morphine Sulfate (Morphine Sulfate) 2 mg IVPUSH Q4H PRN PRN Reason: PAIN LEVEL 1-3 Mupirocin (Bactroban Ointment (For Decolonization) -) 1 applic NS BID [facility] Stop: 02/23/18 21:59 Last Admin: 02/22/18 09:54 Dose: 1 applic Saliva Substitute (Mouthkote Solution -) 1 applic MM DAILY PRN PRN Reason: dry mouth Timolol Maleate (Timoptic 0.5%) 1 drop OD BID [facility] Last Admin: 02/22/18 09:53 Dose: 1 drop Tramadol HCl (Ultram -) 50 mg PO Q6H PRN PRN Reason: PAIN LEVEL 4 - 6 Last Admin: 02/20/18 23:24 Dose: 50 mg - Objective Vital Signs: Vital Signs Temperature 97.6 F 02/22/18 10:00 Pulse Rate 70 02/22/18 10:00 Respiratory Rate 22 02/22/18 10:00 Blood Pressure 177/92 02/22/18 10:00 O2 Sat by Pulse Oximetry (%) 99 02/22/18 09:00 Constitutional: Yes: No Distress Cardiovascular: Yes: Regular Rate and Rhythm Respiratory: Yes: CTA Bilaterally Gastrointestinal: Yes: Normal Bowel Sounds, Soft. No: Tenderness Edema: No Labs: CBC, BMP 02/22/18 05:30 02/22/18 05:30 INR, PTT INR 1.35 (0.82-1.09) H 02/17/18 21:15 Problem List - Problems (1) Subdural hemorrhage Code(s): I62.00 - NONTRAUMATIC SUBDURAL HEMORRHAGE, UNSPECIFIED (2) CAD (coronary artery disease) Code(s): I25.10 - ATHSCL HEART DISEASE OF [place] CORONARY ARTERY W/O ANG PCTRS Qualifiers: [place] vs. transplanted heart: [place] heart Associated angina: without angina (3) Acute renal insufficiency Code(s): N28.9 - DISORDER OF KIDNEY AND URETER, UNSPECIFIED (4) Hypothyroid Code(s): E03.9 - HYPOTHYROIDISM, UNSPECIFIED Qualifiers: Hypothyroidism type: other Qualified Code(s): E03.8 - Other specified hypothyroidism Assessment/Plan PLAN s/p craniotomy and evacuation of SDH renal function better Pt eval continue with current care
--- NOTE | 2018-02-22 12:12 | PN ---
Progress Note (short form) - Note Progress Note: Neurology History of Present Illness Initial Comments: 87 YOM with h/o HTN, hypothyroidism, CAD, AAA with repair earlier this year, and chronic lumbar back pain and spinal stenosis noted on imaging 3 years ago, who presented to the ED with increased chronic low back pain for the past 4 days with worsening of his chronic BLE weakness. His attempted to get him up from his bed but would not get up, which is abnormal for him. He stated his legs were too weak to stand or walk. He was admitted to the hospital and CT L spine showed degenerative changes. On night of admission, noted to have altered mental status and CT head completed which I reviewed and showed acute SDH 1.7- 1.9cm in size per report with mass effect and right to left shift. NSGY completed surgical intervention as documented. Remains ICU and under close monitoring. BPs during my visit are > 170 systolic. Discussed with nurse. Remains on Keppra 750mg twice daily for now. No seizure events. Remains awake but remains confused. BP's remain elevated and discussed with ICU team for tighter control though heart rate has been low (40's at times) making it difficult. Has been ordered for hydralazine. Advised tighter bp control. Active Medications Acetaminophen (Tylenol -) 650 mg PO Q6H PRN PRN Reason: FEVER Amlodipine Besylate (Norvasc -) 5 mg PO DAILY [facility] Last Admin: 02/22/18 09:29 Dose: 5 mg Brimonidine Tartrate (Alphagan 0.2% -) 1 drop OD BID [facility] Last Admin: 02/22/18 09:53 Dose: 1 drop Chlorhexidine Gluconate (Hibiclens For Decolonization -) 1 applic TP HS [facility] Last Admin: 02/21/18 22:28 Dose: 1 applic Chlorthalidone (Hygroton -) 25 mg PO DAILY [facility] Last Admin: 02/22/18 09:32 Dose: 25 mg Docusate Sodium (Colace -) 100 mg PO DAILY [facility] Last Admin: 02/22/18 09:29 Dose: 100 mg Gabapentin (Neurontin -) 100 mg PO TID [facility] Last Admin: 02/22/18 06:14 Dose: 100 mg Levetiracetam (Keppra Injection -) 500 mg IVPB BID [facility] Last Admin: 02/22/18 09:30 Dose: 500 mg Levothyroxine Sodium (Synthroid -) 50 mcg PO DAILY@0700 [facility] Last Admin: 02/22/18 06:14 Dose: 50 mcg Lidocaine (Lidoderm Patch -) 1 patch TP DAILY [facility] Last Admin: 02/22/18 09:30 Dose: 1 patch Metoprolol Tartrate (Lopressor -) 25 mg PO BID [facility] Last Admin: 02/22/18 09:30 Dose: 25 mg Miscellaneous (Lidoderm Patch Removal) 1 each MC DAILY@2200 [facility] Last Admin: 02/21/18 22:28 Dose: 1 each Morphine Sulfate (Morphine Sulfate) 2 mg IVPUSH Q4H PRN PRN Reason: PAIN LEVEL 1-3 Mupirocin (Bactroban Ointment (For Decolonization) -) 1 applic NS BID [facility] Stop: 02/23/18 21:59 Last Admin: 02/22/18 09:54 Dose: 1 applic Saliva Substitute (Mouthkote Solution -) 1 applic MM DAILY PRN PRN Reason: dry mouth Timolol Maleate (Timoptic 0.5%) 1 drop OD BID [facility] Last Admin: 02/22/18 09:53 Dose: 1 drop Tramadol HCl (Ultram -) 50 mg PO Q6H PRN PRN Reason: PAIN LEVEL 4 - 6 Last Admin: 02/20/18 23:24 Dose: 50 mg *Physical Exam Vital Signs Temperature 97.6 F 02/22/18 10:00 Pulse Rate 70 02/22/18 10:00 Respiratory Rate 22 02/22/18 10:00 Blood Pressure 177/92 02/22/18 10:00 O2 Sat by Pulse Oximetry (%) 99 02/22/18 09:00 - Physical Exam General Appearance: Yes: Nourished, Appropriately Dressed, Not answering questions, somnolent HEENT: positive: EOMI, Normal Voice, Hearing Grossly Normal, Other (right pupil round and reactive to light, left pupil fixed dilated nonreactive stated chronic d/t multiple surgeries and eye injury). negative: Scleral Icterus (R), Scleral Icterus (L), Nasal Congestion Neck: positive: Trachea midline, Supple. negative: Tender, Rigid Respiratory/Chest: positive: Lungs Clear, Normal Breath Sounds. negative: Respiratory Distress, Crackles, Rhonchi, Stridor, Wheezing Cardiovascular: positive: Regular Rhythm, Regular Rate. negative: Edema, JVD, Murmur Gastrointestinal/Abdominal: positive: Normal Bowel Sounds, Soft. negative: Tender, Organomegaly, Pulsatile Mass, Guarding Musculoskeletal: positive: Normal Inspection. negative: Decreased Range of Motion, Vertebral Tenderness Extremity: positive: Normal Capillary Refill, Normal Inspection, Normal Range of Motion. negative: Tender, Cyanosis Integumentary: positive: Normal Color, Dry, Warm. negative: Erythema, Rash, Bruising Neurologic: No facial droop, responds to voice, sensory intact to tactile stim , moves extremities but not participating in confrontation testing CBCD WBC 7.3 K/mm3 (4.0-10.0) 02/22/18 05:30 RBC 3.83 M/mm3 (4.00-5.60) L 02/22/18 05:30 Hgb 11.5 GM/dL (11.7-16.9) L 02/22/18 05:30 Hct 32.9 % (35.4-49) L 02/22/18 05:30 MCV 85.7 fl (80-96) 02/22/18 05:30 MCHC 34.9 g/dl (32.0-35.9) 02/22/18 05:30 RDW 13.6 % (11.9-15.9) 02/22/18 05:30 Plt Count 221 K/MM3 (134-434) 02/22/18 05:30 MPV 7.1 fl (7.5-11.1) L 02/22/18 05:30 CMP Sodium 144 mmol/L (136-145) 02/22/18 05:30 Potassium 3.3 mmol/L (3.5-5.1) L 02/22/18 05:30 Chloride 109 mmol/L (98-107) H 02/22/18 05:30 Carbon Dioxide 26 mmol/L (21-32) 02/22/18 05:30 Anion Gap 9 (8-16) 02/22/18 05:30 BUN 21 mg/dL (7-18) H 02/22/18 05:30 Creatinine 1.6 mg/dL (0.7-1.3) H 02/22/18 05:30 Creat Clearance w eGFR 41.09 (>60) 02/22/18 05:30 Calcium 8.5 mg/dL (8.5-10.1) 02/22/18 05:30 Total Bilirubin 0.7 mg/dL (0.2-1.0) 02/21/18 08:36 AST 53 U/L (15-37) H 02/21/18 08:36 ALT 14 U/L (12-78) 02/21/18 08:36 Alkaline Phosphatase 51 U/L (45-117) 02/21/18 08:36 Total Protein 5.6 g/dl (6.4-8.2) L 02/21/18 08:36 Albumin 3.2 g/dl (3.4-5.0) L 02/22/18 05:[address] L spine reviewed Medical Decision Making 87 YOM with h/o HTN, hypothyroidism, CAD, AAA with repair earlier this year, and chronic lumbar back pain and spinal stenosis noted on imaging 3 years ago, who presented to the ED with increased chronic low back pain for the past 4 days with worsening of his chronic BLE weakness. His attempted to get him up from his bed but would not get up, which is abnormal for him. He stated his legs were too weak to stand or walk. He was admitted to the hospital and CT L spine showed degenerative changes. On night of admission, noted to have altered mental status and CT head completed which I reviewed and showed acute SDH 1.7- 1.9cm in size per report with mass effect and right to left shift. NSGY consulted, reportedly for surgical intervention per resident notes. Remains ICU and under close monitoring. BPs during my visit are > 170 systolic. Discussed with ICU staff. Remains on Keppra 750mg twice daily for now. Can be taperred to 500mg twice daily on discharge, then discontinued in 6-8 weeks. No seizure events. Remains awake and alert for me today. Able to tell me he's in the hospital. Was not aware of date. Continue to hold any antiplatelet medication ( on ASA, Plavix at home) Continue close monitoring, stat CT head for any deterioration in mental status. His BP's are elevated and discussed with ICU team for tighter control though heart rate has been low (40's at times) making it difficult. Has been ordered for hydralazine, use as able. Critical care 35 mins.
[2018-02-22] MEDS ORDERED: hydrALAZINE HCL 20 MG/ML VIAL IVPUSH PRN (14:15)
--- NOTE | 2018-02-22 17:14 | PN ---
Progress Note (short form) - Note Progress Note: PULM CCM SUBJECTIVE: Patient seen and examined in the ICU. Now POD #4: Left craniotomy and evacuation of a Sudural hematoma 24Hr -no acute events, awaiting bed on floor/stroke unit Vital Signs Temp 97.8 F 02/22/18 14:00 Pulse 54 L 02/22/18 16:00 Resp 17 02/22/18 16:00 BP 142/66 02/22/18 16:00 Pulse Ox 99 02/22/18 09:00 Intake & Output 02/21/18 02/22/18 02/22/18 23:59 11:59 23:59 Intake Total 510 50 220 Output Total 1200 1400 820 Balance -690 -1350 -600 Weight 59.9 kg Intake: IVPB 100 100 Oral 410 50 120 Output: Urine 1200 1400 820 Penny 1200 1400 820 Other: Voiding Method Indwelling Catheter Indwelling Catheter Bowel Movement Yes # Bowel Movements 1 Body Mass Index (BMI) 20.0 Current Medications Acetaminophen (Tylenol -) 650 mg PO Q6H PRN PRN Reason: FEVER Amlodipine Besylate (Norvasc -) 5 mg PO DAILY [facility] Last Admin: 02/22/18 09:29 Dose: 5 mg Brimonidine Tartrate (Alphagan 0.2% -) 1 drop OD BID [facility] Last Admin: 02/22/18 09:53 Dose: 1 drop Chlorhexidine Gluconate (Hibiclens For Decolonization -) 1 applic TP HS [facility] Last Admin: 02/21/18 22:28 Dose: 1 applic Chlorthalidone (Hygroton -) 25 mg PO DAILY [facility] Last Admin: 02/22/18 09:32 Dose: 25 mg Docusate Sodium (Colace -) 100 mg PO DAILY [facility] Last Admin: 02/22/18 09:29 Dose: 100 mg Gabapentin (Neurontin -) 100 mg PO TID [facility] Last Admin: 02/22/18 13:08 Dose: 100 mg Hydralazine HCl (Apresoline Injection -) 10 mg IVPUSH Q6H PRN PRN Reason: HYPERTENSION Levetiracetam (Keppra Injection -) 500 mg IVPB BID [facility] Last Admin: 02/22/18 09:30 Dose: 500 mg Levothyroxine Sodium (Synthroid -) 50 mcg PO DAILY@0700 [facility] Last Admin: 02/22/18 06:14 Dose: 50 mcg Lidocaine (Lidoderm Patch -) 1 patch TP DAILY [facility] Last Admin: 02/22/18 09:30 Dose: 1 patch Metoprolol Tartrate (Lopressor -) 25 mg PO BID [facility] Last Admin: 02/22/18 09:30 Dose: 25 mg Miscellaneous (Lidoderm Patch Removal) 1 each MC DAILY@2200 [facility] Last Admin: 02/21/18 22:28 Dose: 1 each Morphine Sulfate (Morphine Sulfate) 2 mg IVPUSH Q4H PRN PRN Reason: PAIN LEVEL 1-3 Mupirocin (Bactroban Ointment (For Decolonization) -) 1 applic NS BID [facility] Stop: 02/23/18 21:59 Last Admin: 02/22/18 09:54 Dose: 1 applic Saliva Substitute (Mouthkote Solution -) 1 applic MM DAILY PRN PRN Reason: dry mouth Timolol Maleate (Timoptic 0.5%) 1 drop OD BID [facility] Last Admin: 02/22/18 09:53 Dose: 1 drop Tramadol HCl (Ultram -) 50 mg PO Q6H PRN PRN Reason: PAIN LEVEL 4 - 6 Last Admin: 02/20/18 23:24 Dose: 50 mg General Appearance: Yes: Awake and alert, mildly confused but oriented to self, hospital HEENT: non icteric, EOMI Neck: positive: Trachea midline, Supple. negative: Tender, Rigid Respiratory/Chest: positive: Clear, (-) Crackles, Wheezing Cardiovascular: positive: Regular Rhythm, Regular Rate. negative: Edema, JVD, Murmur Gastrointestinal/Abdominal: soft, NT, ND Musculoskeletal: WNL Extremity: positive: Normal Capillary Refill, Normal Inspection, Normal Range of Motion. negative: Tender, Cyanosis Integumentary: positive: Normal Color, Dry, Warm. negative: Erythema, Rash, Bruising Neurologic: No facial droop, non-focal Laboratory Results - last 24 hr 02/22/18 02/22/18 05:30 05:30 WBC 7.3 RBC 3.83 L Hgb 11.5 L Hct 32.9 L MCV 85.7 MCH 29.9 MCHC 34.9 RDW 13.6 Plt Count 221 MPV 7.1 L Sodium 144 Potassium 3.3 L Chloride 109 H Carbon Dioxide 26 Anion Gap 9 BUN 21 H Creatinine 1.6 H Creat Clearance w eGFR 41.09 Random Glucose 83 Calcium 8.5 Phosphorus 2.0 L Magnesium 1.8 Albumin 3.2 L IMP: POD #3: Left craniotomy and evacuation of a Sudural hematoma Acute Left SDH 1.7-1.9 cm mass effect and shift. HTN Hypothyroidism AAA CAD PLAN: Follow Neuro exam O2 as needed Aspiration precautions SCDs Keppra BP monitoring: keep below 140 , Hydralazine PRN, yanet limiting increase in BB Seizure precautions Stroke unit monitoring [place] ACNP 4868
--- NOTE | 2018-02-22 21:10 | PN ---
Progress Note (short form) - Note Progress Note: covering dr hatfield 87 year old Gentleman with PMhx of Hypertension, CAD, AAA s/p repair earlier this year, Chronic lower back pain, Spinal Stenosis/increased Lower back pain and LE weakness with Cr of 2. MALINDA on CKD vs. Progressive CKD Proteinuria Subdrual Hematoma Current Medications Acetaminophen (Tylenol -) 650 mg PO Q6H PRN PRN Reason: FEVER Amlodipine Besylate (Norvasc -) 5 mg PO DAILY [facility] Last Admin: 02/22/18 09:29 Dose: 5 mg Brimonidine Tartrate (Alphagan 0.2% -) 1 drop OD BID [facility] Last Admin: 02/22/18 09:53 Dose: 1 drop Chlorhexidine Gluconate (Hibiclens For Decolonization -) 1 applic TP HS [facility] Last Admin: 02/21/18 22:28 Dose: 1 applic Chlorthalidone (Hygroton -) 25 mg PO DAILY [facility] Last Admin: 02/22/18 09:32 Dose: 25 mg Docusate Sodium (Colace -) 100 mg PO DAILY [facility] Last Admin: 02/22/18 09:29 Dose: 100 mg Gabapentin (Neurontin -) 100 mg PO TID [facility] Last Admin: 02/22/18 13:08 Dose: 100 mg Hydralazine HCl (Apresoline Injection -) 10 mg IVPUSH Q6H PRN PRN Reason: HYPERTENSION Levetiracetam (Keppra Injection -) 500 mg IVPB BID [facility] Last Admin: 02/22/18 09:30 Dose: 500 mg Levothyroxine Sodium (Synthroid -) 50 mcg PO DAILY@0700 [facility] Last Admin: 02/22/18 06:14 Dose: 50 mcg Lidocaine (Lidoderm Patch -) 1 patch TP DAILY [facility] Last Admin: 02/22/18 09:30 Dose: 1 patch Metoprolol Tartrate (Lopressor -) 25 mg PO BID [facility] Last Admin: 02/22/18 09:30 Dose: 25 mg Miscellaneous (Lidoderm Patch Removal) 1 each MC DAILY@2200 [facility] Last Admin: 02/21/18 22:28 Dose: 1 each Morphine Sulfate (Morphine Sulfate) 2 mg IVPUSH Q4H PRN PRN Reason: PAIN LEVEL 1-3 Mupirocin (Bactroban Ointment (For Decolonization) -) 1 applic NS BID [facility] Stop: 02/23/18 21:59 Last Admin: 02/22/18 09:54 Dose: 1 applic Saliva Substitute (Mouthkote Solution -) 1 applic MM DAILY PRN PRN Reason: dry mouth Timolol Maleate (Timoptic 0.5%) 1 drop OD BID [facility] Last Admin: 02/22/18 09:53 Dose: 1 drop Tramadol HCl (Ultram -) 50 mg PO Q6H PRN PRN Reason: PAIN LEVEL 4 - 6 Last Admin: 02/20/18 23:24 Dose: 50 mg Last Vital Signs Temp Pulse Resp BP Pulse Ox 97.8 F 60 16 150/72 99 02/22/18 14:00 02/22/18 20:00 02/22/18 20:00 02/22/18 20:00 02/22/18 09:00 CBC, BMP 02/22/18 05:30 02/22/18 05:30 malinda renal function improved hypernatremia improved hypokalemia/ nutritional depleted
[2018-02-22] MEDS: CHLORHEXIDINE GLUCONATE 4% CLEANSER FOR DECOLONIZATION TP SCH (21:44)
[2018-02-22] MEDS: LIDOCAINE PATCH REMOVAL MC SCH (21:45)
[2018-02-23] MEDS: GABAPENTIN 100 MG CAPSULE (FP) PO SCH ×3 (06:04→22:05)
[2018-02-23] MEDS: LEVOTHYROXINE NA 50 MCG TABLET (FP) PO SCH (06:04)
[2018-02-23] MEDS: METOPROLOL TARTRATE 25 MG TABLET (FP) PO SCH ×2 (09:20→22:05)
[2018-02-23] MEDS: DOCUSATE SODIUM 100 MG CAPSULE (FP) PO SCH (09:20)
[2018-02-23] MEDS: levETIRAcetam 500 MG/5 ML INJECTION VIAL IVPB SCH ×2 (09:20→22:05)
[2018-02-23] MEDS: CHLORTHALIDONE 25 MG TABLET PO SCH (09:21)
[2018-02-23] MEDS: MUPIROCIN 2% TOPICAL OINTMENT FOR DECOLONIZATION NS SCH (09:21)
[2018-02-23] MEDS: TIMOLOL 0.5% OPHTHALMIC SOL 5 ML BOTTLE OD SCH ×2 (09:24→22:16)
[2018-02-23] MEDS: LIDOCAINE 5% TOPICAL PATCH TP SCH (09:24)
[2018-02-23] MEDS: BRIMONIDINE TARTRATE 0.2% OPHTHALMIC 5 ML BOTTLE OD SCH ×2 (09:24→22:15)
[2018-02-23] MEDS: amLODIPine BESYLATE 5 MG TABLET (FP) PO SCH (09:30)
--- NOTE | 2018-02-23 10:27 | PN ---
Progress Note, Physician Chief Complaint: s/p craniotomy Pt is awake, moves all limbs no headaches confused able to eat - Current Medication List Current Medications: Active Medications Acetaminophen (Tylenol -) 650 mg PO Q6H PRN PRN Reason: FEVER Amlodipine Besylate (Norvasc -) 5 mg PO DAILY [facility] Last Admin: 02/23/18 09:30 Dose: 5 mg Brimonidine Tartrate (Alphagan 0.2% -) 1 drop OD BID [facility] Last Admin: 02/23/18 09:24 Dose: 1 drop Chlorhexidine Gluconate (Hibiclens For Decolonization -) 1 applic TP HS [facility] Last Admin: 02/22/18 21:44 Dose: 1 applic Chlorthalidone (Hygroton -) 25 mg PO DAILY [facility] Last Admin: 02/23/18 09:21 Dose: 25 mg Docusate Sodium (Colace -) 100 mg PO DAILY [facility] Last Admin: 02/23/18 09:20 Dose: 100 mg Gabapentin (Neurontin -) 100 mg PO TID [facility] Last Admin: 02/23/18 06:04 Dose: 100 mg Hydralazine HCl (Apresoline Injection -) 10 mg IVPUSH Q6H PRN PRN Reason: HYPERTENSION Levetiracetam (Keppra Injection -) 500 mg IVPB BID [facility] Last Admin: 02/23/18 09:20 Dose: 500 mg Levothyroxine Sodium (Synthroid -) 50 mcg PO DAILY@0700 [facility] Last Admin: 02/23/18 06:04 Dose: 50 mcg Lidocaine (Lidoderm Patch -) 1 patch TP DAILY [facility] Last Admin: 02/23/18 09:24 Dose: 1 patch Metoprolol Tartrate (Lopressor -) 25 mg PO BID [facility] Last Admin: 02/23/18 09:20 Dose: 25 mg Miscellaneous (Lidoderm Patch Removal) 1 each MC DAILY@2200 [facility] Last Admin: 02/22/18 21:45 Dose: 1 each Morphine Sulfate (Morphine Sulfate) 2 mg IVPUSH Q4H PRN PRN Reason: PAIN LEVEL 1-3 Mupirocin (Bactroban Ointment (For Decolonization) -) 1 applic NS BID [facility] Stop: 02/23/18 21:59 Last Admin: 02/23/18 09:21 Dose: 1 applic Saliva Substitute (Mouthkote Solution -) 1 applic MM DAILY PRN PRN Reason: dry mouth Timolol Maleate (Timoptic 0.5%) 1 drop OD BID [facility] Last Admin: 02/23/18 09:24 Dose: 1 drop Tramadol HCl (Ultram -) 50 mg PO Q6H PRN PRN Reason: PAIN LEVEL 4 - 6 Last Admin: 02/20/18 23:24 Dose: 50 mg - Objective Vital Signs: Vital Signs Temperature 98.6 F 02/23/18 06:00 Pulse Rate 56 L 02/23/18 10:00 Respiratory Rate 17 02/23/18 10:00 Blood Pressure 164/75 02/23/18 10:00 O2 Sat by Pulse Oximetry (%) 99 02/22/18 09:00 Constitutional: Yes: No Distress, Calm Cardiovascular: Yes: Regular Rate and Rhythm Respiratory: Yes: CTA Bilaterally Gastrointestinal: Yes: Normal Bowel Sounds, Soft. No: Tenderness Edema: No Labs: CBC, BMP 02/22/18 05:30 02/22/18 05:30 INR, PTT INR 1.35 (0.82-1.09) H 02/17/18 21:15 Problem List - Problems (1) Subdural hemorrhage Code(s): I62.00 - NONTRAUMATIC SUBDURAL HEMORRHAGE, UNSPECIFIED (2) CAD (coronary artery disease) Code(s): I25.10 - ATHSCL HEART DISEASE OF [place] CORONARY ARTERY W/O ANG PCTRS Qualifiers: [place] vs. transplanted heart: [place] heart Associated angina: without angina (3) Acute renal insufficiency Code(s): N28.9 - DISORDER OF KIDNEY AND URETER, UNSPECIFIED (4) Hypothyroid Code(s): E03.9 - HYPOTHYROIDISM, UNSPECIFIED Qualifiers: Hypothyroidism type: other Qualified Code(s): E03.8 - Other specified hypothyroidism Assessment/Plan PLAN s/p craniotomy and evacuation of SDH renal function better Pt eval continue with current care awaiting transfer to floors
--- NOTE | 2018-02-23 13:03 | PN ---
Progress Note (short form) - Note Progress Note: Neurology History of Present Illness Initial Comments: 87 YOM with h/o HTN, hypothyroidism, CAD, AAA with repair earlier this year, and chronic lumbar back pain and spinal stenosis noted on imaging 3 years ago, who presented to the ED with increased chronic low back pain for the past 4 days with worsening of his chronic BLE weakness. His attempted to get him up from his bed but would not get up, which is abnormal for him. He stated his legs were too weak to stand or walk. He was admitted to the hospital and CT L spine showed degenerative changes. On night of admission, noted to have altered mental status and CT head completed which I reviewed and showed acute SDH 1.7- 1.9cm in size per report with mass effect and right to left shift. NSGY completed surgical intervention as documented. Remains ICU and under close monitoring. BPs during my visit are > 170 systolic. Discussed with nurse. On Keppra 500mg twice daily for now. No seizure events. Blood pressure improved, 150's with stable hr in 60's during my visit. Has been ordered for hydralazine. Advised tight bp control. Remains interactive and cooperative but unsure of location and with confusion. Active Medications Acetaminophen (Tylenol -) 650 mg PO Q6H PRN PRN Reason: FEVER Amlodipine Besylate (Norvasc -) 5 mg PO DAILY [facility] Last Admin: 02/23/18 09:30 Dose: 5 mg Brimonidine Tartrate (Alphagan 0.2% -) 1 drop OD BID [facility] Last Admin: 02/23/18 09:24 Dose: 1 drop Chlorhexidine Gluconate (Hibiclens For Decolonization -) 1 applic TP HS [facility] Last Admin: 02/22/18 21:44 Dose: 1 applic Chlorthalidone (Hygroton -) 25 mg PO DAILY [facility] Last Admin: 02/23/18 09:21 Dose: 25 mg Docusate Sodium (Colace -) 100 mg PO DAILY [facility] Last Admin: 02/23/18 09:20 Dose: 100 mg Gabapentin (Neurontin -) 100 mg PO TID [facility] Last Admin: 02/23/18 13:01 Dose: 100 mg Hydralazine HCl (Apresoline Injection -) 10 mg IVPUSH Q6H PRN PRN Reason: HYPERTENSION Levetiracetam (Keppra Injection -) 500 mg IVPB BID [facility] Last Admin: 02/23/18 09:20 Dose: 500 mg Levothyroxine Sodium (Synthroid -) 50 mcg PO DAILY@0700 [facility] Last Admin: 02/23/18 06:04 Dose: 50 mcg Lidocaine (Lidoderm Patch -) 1 patch TP DAILY [facility] Last Admin: 02/23/18 09:24 Dose: 1 patch Metoprolol Tartrate (Lopressor -) 25 mg PO BID [facility] Last Admin: 02/23/18 09:20 Dose: 25 mg Miscellaneous (Lidoderm Patch Removal) 1 each MC DAILY@2200 [facility] Last Admin: 02/22/18 21:45 Dose: 1 each Morphine Sulfate (Morphine Sulfate) 2 mg IVPUSH Q4H PRN PRN Reason: PAIN LEVEL 1-3 Mupirocin (Bactroban Ointment (For Decolonization) -) 1 applic NS BID [facility] Stop: 02/23/18 21:59 Last Admin: 02/23/18 09:21 Dose: 1 applic Saliva Substitute (Mouthkote Solution -) 1 applic MM DAILY PRN PRN Reason: dry mouth Timolol Maleate (Timoptic 0.5%) 1 drop OD BID [facility] Last Admin: 02/23/18 09:24 Dose: 1 drop Tramadol HCl (Ultram -) 50 mg PO Q6H PRN PRN Reason: PAIN LEVEL 4 - 6 Last Admin: 02/20/18 23:24 Dose: 50 mg *Physical Exam Vital Signs Period Temp Pulse Resp BP Sys/Michel Pulse Ox Last 24 Hr 97.8 F-98.6 F 49-68 16-24 131-169/57-91 - Physical Exam General Appearance: Yes: Nourished, Appropriately Dressed, Not answering questions, somnolent HEENT: positive: EOMI, Normal Voice, Hearing Grossly Normal, Other (right pupil round and reactive to light, left pupil fixed dilated nonreactive stated chronic d/t multiple surgeries and eye injury). negative: Scleral Icterus (R), Scleral Icterus (L), Nasal Congestion Neck: positive: Trachea midline, Supple. negative: Tender, Rigid Respiratory/Chest: positive: Lungs Clear, Normal Breath Sounds. negative: Respiratory Distress, Crackles, Rhonchi, Stridor, Wheezing Cardiovascular: positive: Regular Rhythm, Regular Rate. negative: Edema, JVD, Murmur Gastrointestinal/Abdominal: positive: Normal Bowel Sounds, Soft. negative: Tender, Organomegaly, Pulsatile Mass, Guarding Musculoskeletal: positive: Normal Inspection. negative: Decreased Range of Motion, Vertebral Tenderness Extremity: positive: Normal Capillary Refill, Normal Inspection, Normal Range of Motion. negative: Tender, Cyanosis Integumentary: positive: Normal Color, Dry, Warm. negative: Erythema, Rash, Bruising Neurologic: No facial droop, responds to voice, sensory intact to tactile stim , moves extremities but not participating in confrontation testing CBCD WBC 7.3 K/mm3 (4.0-10.0) 02/22/18 05:30 RBC 3.83 M/mm3 (4.00-5.60) L 02/22/18 05:30 Hgb 11.5 GM/dL (11.7-16.9) L 02/22/18 05:30 Hct 32.9 % (35.4-49) L 02/22/18 05:30 MCV 85.7 fl (80-96) 02/22/18 05:30 MCHC 34.9 g/dl (32.0-35.9) 02/22/18 05:30 RDW 13.6 % (11.9-15.9) 02/22/18 05:30 Plt Count 221 K/MM3 (134-434) 02/22/18 05:30 MPV 7.1 fl (7.5-11.1) L 02/22/18 05:30 CMP Sodium 144 mmol/L (136-145) 02/22/18 05:30 Potassium 3.3 mmol/L (3.5-5.1) L 02/22/18 05:30 Chloride 109 mmol/L (98-107) H 02/22/18 05:30 Carbon Dioxide 26 mmol/L (21-32) 02/22/18 05:30 Anion Gap 9 (8-16) 02/22/18 05:30 BUN 21 mg/dL (7-18) H 02/22/18 05:30 Creatinine 1.6 mg/dL (0.7-1.3) H 02/22/18 05:30 Creat Clearance w eGFR 41.09 (>60) 02/22/18 05:30 Calcium 8.5 mg/dL (8.5-10.1) 02/22/18 05:30 Total Bilirubin 0.7 mg/dL (0.2-1.0) 02/21/18 08:36 AST 53 U/L (15-37) H 02/21/18 08:36 ALT 14 U/L (12-78) 02/21/18 08:36 Alkaline Phosphatase 51 U/L (45-117) 02/21/18 08:36 Total Protein 5.6 g/dl (6.4-8.2) L 02/21/18 08:36 Albumin 3.2 g/dl (3.4-5.0) L 02/22/18 05:[address] L spine reviewed Medical Decision Making 87 YOM with h/o HTN, hypothyroidism, CAD, AAA with repair earlier this year, and chronic lumbar back pain and spinal stenosis noted on imaging 3 years ago, who presented to the ED with increased chronic low back pain for the past 4 days with worsening of his chronic BLE weakness. His attempted to get him up from his bed but would not get up, which is abnormal for him. He stated his legs were too weak to stand or walk. He was admitted to the hospital and CT L spine showed degenerative changes. On night of admission, noted to have altered mental status and CT head completed which I reviewed and showed acute SDH 1.7- 1.9cm in size per report with mass effect and right to left shift. NSGY consulted, reportedly for surgical intervention per resident notes. Remains ICU and under close monitoring. BPs during my visit are > 170 systolic. Discussed with ICU staff. On Keppra 500mg twice daily for now. No seizure events. Blood pressure improved, 150's with stable hr in 60's during my visit. Has been ordered for hydralazine. Advised tight bp control. Remains interactive and cooperative but unsure of location and with confusion. No seizure events. Remains awake and alert for me today. Able to tell me he's in the hospital. Was not aware of date. If NSGY ok to restart antiplatelet medication, this should be considered. Critical care 35 mins.
--- NOTE | 2018-02-23 15:36 | PN ---
Progress Note (short form) - Note Progress Note: PULM CCM SUBJECTIVE: Patient seen and examined in the ICU. Now POD #5: Left craniotomy and evacuation of a Sudural hematoma 24Hr -in for floor bed -BP sligtly better controlled Vital Signs Temp 98.2 F 02/23/18 12:00 Pulse 56 L 02/23/18 14:00 Resp 17 02/23/18 14:00 BP 156/67 02/23/18 14:00 Pulse Ox 99 02/22/18 09:00 Intake & Output 02/22/18 02/23/18 02/23/18 23:59 11:59 23:59 Intake Total 220 220 220 Output Total 820 500 800 Balance -600 -280 -580 Weight 60.373 kg Intake: IVPB 100 100 100 Oral 120 120 120 Output: Urine 820 500 Penny 820 500 Emesis 800 Other: Voiding Method Indwelling Catheter Indwelling Catheter # Unmeasured Voids Void 2 Bowel Movement Yes Yes Yes # Bowel Movements 1 2 1 Weight Measurement Method Built in [facility] Current Medications Acetaminophen (Tylenol -) 650 mg PO Q6H PRN PRN Reason: FEVER Amlodipine Besylate (Norvasc -) 5 mg PO DAILY [facility] Last Admin: 02/23/18 09:30 Dose: 5 mg Brimonidine Tartrate (Alphagan 0.2% -) 1 drop OD BID [facility] Last Admin: 02/23/18 09:24 Dose: 1 drop Chlorhexidine Gluconate (Hibiclens For Decolonization -) 1 applic TP HS [facility] Last Admin: 02/22/18 21:44 Dose: 1 applic Chlorthalidone (Hygroton -) 25 mg PO DAILY [facility] Last Admin: 02/23/18 09:21 Dose: 25 mg Docusate Sodium (Colace -) 100 mg PO DAILY [facility] Last Admin: 02/23/18 09:20 Dose: 100 mg Gabapentin (Neurontin -) 100 mg PO TID [facility] Last Admin: 02/23/18 13:01 Dose: 100 mg Hydralazine HCl (Apresoline Injection -) 10 mg IVPUSH Q6H PRN PRN Reason: HYPERTENSION Levetiracetam (Keppra Injection -) 500 mg IVPB BID [facility] Last Admin: 02/23/18 09:20 Dose: 500 mg Levothyroxine Sodium (Synthroid -) 50 mcg PO DAILY@0700 [facility] Last Admin: 02/23/18 06:04 Dose: 50 mcg Lidocaine (Lidoderm Patch -) 1 patch TP DAILY [facility] Last Admin: 02/23/18 09:24 Dose: 1 patch Metoprolol Tartrate (Lopressor -) 25 mg PO BID [facility] Last Admin: 02/23/18 09:20 Dose: 25 mg Miscellaneous (Lidoderm Patch Removal) 1 each MC DAILY@2200 [facility] Last Admin: 02/22/18 21:45 Dose: 1 each Morphine Sulfate (Morphine Sulfate) 2 mg IVPUSH Q4H PRN PRN Reason: PAIN LEVEL 1-3 Mupirocin (Bactroban Ointment (For Decolonization) -) 1 applic NS BID [facility] Stop: 02/23/18 21:59 Last Admin: 02/23/18 09:21 Dose: 1 applic Saliva Substitute (Mouthkote Solution -) 1 applic MM DAILY PRN PRN Reason: dry mouth Timolol Maleate (Timoptic 0.5%) 1 drop OD BID [facility] Last Admin: 02/23/18 09:24 Dose: 1 drop Tramadol HCl (Ultram -) 50 mg PO Q6H PRN PRN Reason: PAIN LEVEL 4 - 6 Last Admin: 02/20/18 23:24 Dose: 50 mg General Appearance: Yes: Awake and alert, thinks is at rehab HEENT: non icteric, EOMI Neck: positive: Trachea midline, Supple. negative: Tender, Rigid Respiratory/Chest: positive: Clear, (-) Crackles, Wheezing Cardiovascular: positive: Regular Rhythm, Regular Rate. negative: Edema, JVD, Murmur Gastrointestinal/Abdominal: soft, NT, ND Musculoskeletal: WNL Extremity: positive: Normal Capillary Refill, Normal Inspection, Normal Range of Motion. negative: Tender, Cyanosis Integumentary: positive: Normal Color, Dry, Warm. negative: Erythema, Rash, Bruising Neurologic: No facial droop, non-focal, more confused today. thinks is Fall and at Rehab. CBC, BMP 02/22/18 05:30 02/22/18 05:30 IMP: POD #3: Left craniotomy and evacuation of a Sudural hematoma Acute Left SDH 1.7-1.9 cm mass effect and shift. HTN Hypothyroidism AAA CAD PLAN: Follow Neuro exams O2 as needed Aspiration precautions SCDs Keppra BP monitoring: keep below 140 , Hydralazine PRN, yanet limiting increase in BB Seizure precautions Restart ASA if ok with neuro surgery Stroke unit monitoring, still awaiting bed on floor Monalisa ACNP [id number]
--- NOTE | 2018-02-23 15:37 | PN ---
Progress Note (short form) - Note Progress Note: PULM CCM SUBJECTIVE: Patient seen and examined in the ICU. Now POD #5: Left craniotomy and evacuation of a Sudural hematoma 24Hr -in for floor bed -BP sligtly better controlled Vital Signs Temp 98.2 F 02/23/18 12:00 Pulse 56 L 02/23/18 14:00 Resp 17 02/23/18 14:00 BP 156/67 02/23/18 14:00 Pulse Ox 99 02/22/18 09:00 Intake & Output 02/22/18 02/23/18 02/23/18 23:59 11:59 23:59 Intake Total 220 220 220 Output Total 820 500 800 Balance -600 -280 -580 Weight 60.373 kg Intake: IVPB 100 100 100 Oral 120 120 120 Output: Urine 820 500 Penny 820 500 Emesis 800 Other: Voiding Method Indwelling Catheter Indwelling Catheter # Unmeasured Voids Void 2 Bowel Movement Yes Yes Yes # Bowel Movements 1 2 1 Weight Measurement Method Built in [facility] Current Medications Acetaminophen (Tylenol -) 650 mg PO Q6H PRN PRN Reason: FEVER Amlodipine Besylate (Norvasc -) 5 mg PO DAILY [facility] Last Admin: 02/23/18 09:30 Dose: 5 mg Brimonidine Tartrate (Alphagan 0.2% -) 1 drop OD BID [facility] Last Admin: 02/23/18 09:24 Dose: 1 drop Chlorhexidine Gluconate (Hibiclens For Decolonization -) 1 applic TP HS [facility] Last Admin: 02/22/18 21:44 Dose: 1 applic Chlorthalidone (Hygroton -) 25 mg PO DAILY [facility] Last Admin: 02/23/18 09:21 Dose: 25 mg Docusate Sodium (Colace -) 100 mg PO DAILY [facility] Last Admin: 02/23/18 09:20 Dose: 100 mg Gabapentin (Neurontin -) 100 mg PO TID [facility] Last Admin: 02/23/18 13:01 Dose: 100 mg Hydralazine HCl (Apresoline Injection -) 10 mg IVPUSH Q6H PRN PRN Reason: HYPERTENSION Levetiracetam (Keppra Injection -) 500 mg IVPB BID [facility] Last Admin: 02/23/18 09:20 Dose: 500 mg Levothyroxine Sodium (Synthroid -) 50 mcg PO DAILY@0700 [facility] Last Admin: 02/23/18 06:04 Dose: 50 mcg Lidocaine (Lidoderm Patch -) 1 patch TP DAILY [facility] Last Admin: 02/23/18 09:24 Dose: 1 patch Metoprolol Tartrate (Lopressor -) 25 mg PO BID [facility] Last Admin: 02/23/18 09:20 Dose: 25 mg Miscellaneous (Lidoderm Patch Removal) 1 each MC DAILY@2200 [facility] Last Admin: 02/22/18 21:45 Dose: 1 each Morphine Sulfate (Morphine Sulfate) 2 mg IVPUSH Q4H PRN PRN Reason: PAIN LEVEL 1-3 Mupirocin (Bactroban Ointment (For Decolonization) -) 1 applic NS BID [facility] Stop: 02/23/18 21:59 Last Admin: 02/23/18 09:21 Dose: 1 applic Saliva Substitute (Mouthkote Solution -) 1 applic MM DAILY PRN PRN Reason: dry mouth Timolol Maleate (Timoptic 0.5%) 1 drop OD BID [facility] Last Admin: 02/23/18 09:24 Dose: 1 drop Tramadol HCl (Ultram -) 50 mg PO Q6H PRN PRN Reason: PAIN LEVEL 4 - 6 Last Admin: 02/20/18 23:24 Dose: 50 mg General Appearance: Yes: Awake and alert, thinks is at rehab HEENT: non icteric, EOMI Neck: positive: Trachea midline, Supple. negative: Tender, Rigid Respiratory/Chest: positive: Clear, (-) Crackles, Wheezing Cardiovascular: positive: Regular Rhythm, Regular Rate. negative: Edema, JVD, Murmur Gastrointestinal/Abdominal: soft, NT, ND Musculoskeletal: WNL Extremity: positive: Normal Capillary Refill, Normal Inspection, Normal Range of Motion. negative: Tender, Cyanosis Integumentary: positive: Normal Color, Dry, Warm. negative: Erythema, Rash, Bruising Neurologic: No facial droop, non-focal, more confused today. thinks is Fall and at Rehab. CBC, BMP 02/22/18 05:30 02/22/18 05:30 IMP: POD #3: Left craniotomy and evacuation of a Sudural hematoma Acute Left SDH 1.7-1.9 cm mass effect and shift. HTN Hypothyroidism AAA CAD PLAN: Follow Neuro exams O2 as needed Aspiration precautions SCDs Keppra BP monitoring: keep below 140 , Hydralazine PRN, yanet limiting increase in BB Seizure precautions Restart ASA if ok with neuro surgery Stroke unit monitoring, still awaiting bed on floor Monalisa ACNP [id number]
[2018-02-23] MEDS: KCL 10 MEQ IVPB 10 MEQ/100 ML INFUS.BAG IVPB SCH ×2 (17:34→18:34)
[2018-02-23] MEDS ORDERED: PT OWN MED DRAWER 7, Y5N ONE (21:57)
[2018-02-23] MEDS: LIDOCAINE PATCH REMOVAL MC SCH (22:06)
[2018-02-23] MEDS: CHLORHEXIDINE GLUCONATE 4% CLEANSER FOR DECOLONIZATION TP SCH (22:06)
[2018-02-24 05:51] LABS: HEMATOCRIT 33.2 % (35.4-49); HEMOGLOBIN 11.8 GM/dL (11.7-16.9); MCH 30.2 pg (25.7-33.7); MCHC 35.5 g/dl (32.0-35.9); MEAN CELL VOLUME 84.9 fl (80-96); PLATELET COUNT 220 K/MM3 (134-434); RBC 3.91 M/mm3 (4.00-5.60); RDW 13.6 % (11.9-15.9); WHITE BLOOD COUNT 8.2 K/mm3 (4.0-10.0)
[2018-02-24] MEDS: GABAPENTIN 100 MG CAPSULE (FP) PO SCH ×3 (06:21→21:30)
[2018-02-24 06:45] LABS: ALBUMIN 3.4 g/dl (3.4-5.0); ANION GAP 6 (8-16); BLOOD UREA NITROGEN 23 mg/dL (7-18); CALCIUM 8.5 mg/dL (8.5-10.1); CHLORIDE 108 mmol/L (98-107); CO2 27 mmol/L (21-32); CREATININE 1.7 mg/dL (0.7-1.3); GLUCOSE,RANDOM 81 mg/dL (74-106); POTASSIUM 3.4 mmol/L (3.5-5.1); SGOT/AST 21 U/L (15-37); SGPT/ALT 15 U/L (12-78); SODIUM 141 mmol/L (136-145)
[2018-02-24 06:47] LABS: ALK PHOS 60 U/L (45-117); BILIRUBIN,TOTAL 0.8 mg/dL (0.2-1.0); TOT PROT 6.2 g/dl (6.4-8.2)
[2018-02-24] MEDS: LEVOTHYROXINE NA 50 MCG TABLET (FP) PO SCH (06:53)
--- NOTE | 2018-02-24 09:42 | PN ---
Progress Note (short form) - Note Progress Note: Neurology History of Present Illness Initial Comments: 87 YOM with h/o HTN, hypothyroidism, CAD, AAA with repair earlier this year, and chronic lumbar back pain and spinal stenosis noted on imaging 3 years ago, who presented to the ED with increased chronic low back pain for the past 4 days with worsening of his chronic BLE weakness. His attempted to get him up from his bed but would not get up, which is abnormal for him. He stated his legs were too weak to stand or walk. He was admitted to the hospital and CT L spine showed degenerative changes. On night of admission, noted to have altered mental status and CT head completed which I reviewed and showed acute SDH 1.7- 1.9cm in size per report with mass effect and right to left shift. NSGY completed surgical intervention as documented. Remains ICU and under close monitoring.On Keppra 500mg twice daily for now, changed from IV to PO. No seizure events. Blood pressure improved, 150's/160's. Remains interactive and cooperative but unsure of location and with confusion. Will likely need rehab once stabilized. Active Medications Acetaminophen (Tylenol -) 650 mg PO Q6H PRN PRN Reason: FEVER Amlodipine Besylate (Norvasc -) 5 mg PO DAILY [facility] Last Admin: 02/23/18 09:30 Dose: 5 mg Brimonidine Tartrate (Alphagan 0.2% -) 1 drop OD BID [facility] Last Admin: 02/23/18 22:15 Dose: 1 drop Chlorhexidine Gluconate (Hibiclens For Decolonization -) 1 applic TP HS [facility] Last Admin: 02/23/18 22:06 Dose: 1 applic Chlorthalidone (Hygroton -) 25 mg PO DAILY [facility] Last Admin: 02/23/18 09:21 Dose: 25 mg Docusate Sodium (Colace -) 100 mg PO DAILY [facility] Last Admin: 02/23/18 09:20 Dose: 100 mg Gabapentin (Neurontin -) 100 mg PO TID [facility] Last Admin: 02/24/18 06:21 Dose: 100 mg Hydralazine HCl (Apresoline Injection -) 10 mg IVPUSH Q6H PRN PRN Reason: HYPERTENSION Levetiracetam (Keppra -) 500 mg PO BID [facility] Levothyroxine Sodium (Synthroid -) 50 mcg PO DAILY@0700 [facility] Last Admin: 02/24/18 06:53 Dose: 50 mcg Lidocaine (Lidoderm Patch -) 1 patch TP DAILY [facility] Last Admin: 02/23/18 09:24 Dose: 1 patch Metoprolol Tartrate (Lopressor -) 25 mg PO BID [facility] Last Admin: 02/23/18 22:05 Dose: 25 mg Miscellaneous (Lidoderm Patch Removal) 1 each MC DAILY@2200 [facility] Last Admin: 02/23/18 22:06 Dose: 1 each Saliva Substitute (Mouthkote Solution -) 1 applic MM DAILY PRN PRN Reason: dry mouth Timolol Maleate (Timoptic 0.5%) 1 drop OD BID [facility] Last Admin: 02/23/18 22:16 Dose: 1 drop *Physical Exam Vital Signs Temperature 97.5 F L 02/24/18 06:00 Pulse Rate 54 L 02/24/18 08:00 Respiratory Rate 20 02/24/18 08:00 Blood Pressure 161/58 02/24/18 08:00 O2 Sat by Pulse Oximetry (%) 99 02/22/18 09:00 - Physical Exam General Appearance: Yes: Nourished, Appropriately Dressed, Not answering questions, somnolent HEENT: positive: EOMI, Normal Voice, Hearing Grossly Normal, Other (right pupil round and reactive to light, left pupil fixed dilated nonreactive stated chronic d/t multiple surgeries and eye injury). negative: Scleral Icterus (R), Scleral Icterus (L), Nasal Congestion Neck: positive: Trachea midline, Supple. negative: Tender, Rigid Respiratory/Chest: positive: Lungs Clear, Normal Breath Sounds. negative: Respiratory Distress, Crackles, Rhonchi, Stridor, Wheezing Cardiovascular: positive: Regular Rhythm, Regular Rate. negative: Edema, JVD, Murmur Gastrointestinal/Abdominal: positive: Normal Bowel Sounds, Soft. negative: Tender, Organomegaly, Pulsatile Mass, Guarding Musculoskeletal: positive: Normal Inspection. negative: Decreased Range of Motion, Vertebral Tenderness Extremity: positive: Normal Capillary Refill, Normal Inspection, Normal Range of Motion. negative: Tender, Cyanosis Integumentary: positive: Normal Color, Dry, Warm. negative: Erythema, Rash, Bruising Neurologic: No facial droop, responds to voice, sensory intact to tactile stim , moves extremities but not participating in confrontation testing CBCD WBC 8.2 K/mm3 (4.0-10.0) 02/24/18 05:30 RBC 3.91 M/mm3 (4.00-5.60) L 02/24/18 05:30 Hgb 11.8 GM/dL (11.7-16.9) 02/24/18 05:30 Hct 33.2 % (35.4-49) L 02/24/18 05:30 MCV 84.9 fl (80-96) 02/24/18 05:30 MCHC 35.5 g/dl (32.0-35.9) 02/24/18 05:30 RDW 13.6 % (11.9-15.9) 02/24/18 05:30 Plt Count 220 K/MM3 (134-434) 02/24/18 05:30 MPV 7.0 fl (7.5-11.1) L 02/24/18 05:30 CMP Sodium 141 mmol/L (136-145) 02/24/18 05:30 Potassium 3.4 mmol/L (3.5-5.1) L 02/24/18 05:30 Chloride 108 mmol/L (98-107) H 02/24/18 05:30 Carbon Dioxide 27 mmol/L (21-32) 02/24/18 05:30 Anion Gap 6 (8-16) L 02/24/18 05:30 BUN 23 mg/dL (7-18) H 02/24/18 05:30 Creatinine 1.7 mg/dL (0.7-1.3) H 02/24/18 05:30 Creat Clearance w eGFR 38.32 (>60) 02/24/18 05:30 Calcium 8.5 mg/dL (8.5-10.1) 02/24/18 05:30 Total Bilirubin 0.8 mg/dL (0.2-1.0) 02/24/18 05:30 AST 21 U/L (15-37) D 02/24/18 05:30 ALT 15 U/L (12-78) 02/24/18 05:30 Alkaline Phosphatase 60 U/L (45-117) 02/24/18 05:30 Total Protein 6.2 g/dl (6.4-8.2) L 02/24/18 05:30 Albumin 3.4 g/dl (3.4-5.0) 02/24/18 05:[address] L spine reviewed Medical Decision Making 87 YOM with h/o HTN, hypothyroidism, CAD, AAA with repair earlier this year, and chronic lumbar back pain and spinal stenosis noted on imaging 3 years ago, who presented to the ED with increased chronic low back pain for the past 4 days with worsening of his chronic BLE weakness. His attempted to get him up from his bed but would not get up, which is abnormal for him. He stated his legs were too weak to stand or walk. He was admitted to the hospital and CT L spine showed degenerative changes. On night of admission, noted to have altered mental status and CT head completed which I reviewed and showed acute SDH 1.7- 1.9cm in size per report with mass effect and right to left shift with neurosurgical intervention Remains ICU and under close monitoring. On Keppra 500mg twice daily for now, changed from IV to PO. No seizure events. Blood pressure improved, 150's-160's Has been ordered for hydralazine. Advised tight bp control. Remains interactive and cooperative but unsure of location and with confusion. If NSGY ok to restart antiplatelet medication, this should be considered. Critical care 35 mins.
[2018-02-24] MEDS ORDERED: levETIRAcetam 500 MG TABLET (FP) PO SCH (10:00)
[2018-02-24] MEDS: TIMOLOL 0.5% OPHTHALMIC SOL 5 ML BOTTLE OD SCH ×2 (10:01→21:40)
[2018-02-24] MEDS: DOCUSATE SODIUM 100 MG CAPSULE (FP) PO SCH (10:01)
[2018-02-24] MEDS: BRIMONIDINE TARTRATE 0.2% OPHTHALMIC 5 ML BOTTLE OD SCH ×2 (10:01→21:40)
[2018-02-24] MEDS: amLODIPine BESYLATE 5 MG TABLET (FP) PO SCH (10:02)
[2018-02-24] MEDS: LIDOCAINE 5% TOPICAL PATCH TP SCH (10:02)
[2018-02-24] MEDS: CHLORTHALIDONE 25 MG TABLET PO SCH (10:02)
[2018-02-24] MEDS: METOPROLOL TARTRATE 25 MG TABLET (FP) PO SCH ×2 (10:02→21:30)
--- NOTE | 2018-02-24 11:06 | PN ---
Progress Note, Physician Chief Complaint: The patient seen in the ICU. Seems awake, but slightly confused. Not in any distress. History of Present Illness: 87 YOM with h/o HTN, hypothyroidism, CAD, AAA with repair earlier this year, and chronic lumbar back pain and spinal stenosis noted on imaging 3 years ago, who presented to the ED with increased chronic low back pain with worsening of his chronic BLE weakness. He was admitted to the hospital and CT L spine showed degenerative changes. On night of admission, noted to have altered mental status and CT head showed acute SDH 1.7-1.9cm in size with mass effect and right to left shift. Had surgical intervention. Remains ICU and under close monitoring. Had developed acute deterioration of the kidney functions and hence the renal follow up. - Current Medication List Current Medications: Active Medications Acetaminophen (Tylenol -) 650 mg PO Q6H PRN PRN Reason: FEVER Amlodipine Besylate (Norvasc -) 5 mg PO DAILY [facility] Last Admin: 02/24/18 10:02 Dose: 5 mg Brimonidine Tartrate (Alphagan 0.2% -) 1 drop OD BID [facility] Last Admin: 02/24/18 10:01 Dose: 1 drop Chlorhexidine Gluconate (Hibiclens For Decolonization -) 1 applic TP HS [facility] Last Admin: 02/23/18 22:06 Dose: 1 applic Chlorthalidone (Hygroton -) 25 mg PO DAILY [facility] Last Admin: 02/24/18 10:02 Dose: 25 mg Docusate Sodium (Colace -) 100 mg PO DAILY [facility] Last Admin: 02/24/18 10:01 Dose: 100 mg Gabapentin (Neurontin -) 100 mg PO TID [facility] Last Admin: 02/24/18 06:21 Dose: 100 mg Hydralazine HCl (Apresoline Injection -) 10 mg IVPUSH Q6H PRN PRN Reason: HYPERTENSION Levetiracetam (Keppra -) 500 mg PO BID [facility] Last Admin: 02/24/18 10:05 Dose: 500 mg Levothyroxine Sodium (Synthroid -) 50 mcg PO DAILY@0700 [facility] Last Admin: 02/24/18 06:53 Dose: 50 mcg Lidocaine (Lidoderm Patch -) 1 patch TP DAILY [facility] Last Admin: 02/24/18 10:02 Dose: 1 patch Metoprolol Tartrate (Lopressor -) 25 mg PO BID [facility] Last Admin: 02/24/18 10:02 Dose: Not Given Miscellaneous (Lidoderm Patch Removal) 1 each MC DAILY@2200 [facility] Last Admin: 02/23/18 22:06 Dose: 1 each Saliva Substitute (Mouthkote Solution -) 1 applic MM DAILY PRN PRN Reason: dry mouth Timolol Maleate (Timoptic 0.5%) 1 drop OD BID [facility] Last Admin: 02/24/18 10:01 Dose: 1 drop - Objective Vital Signs: Vital Signs Temperature 98.3 F 02/24/18 10:00 Pulse Rate 60 02/24/18 10:00 Respiratory Rate 19 02/24/18 10:00 Blood Pressure 153/53 02/24/18 10:00 O2 Sat by Pulse Oximetry (%) 99 02/22/18 09:00 Constitutional: Yes: No Distress, Calm Eyes: Yes: Conjunctiva Clear HENT: Yes: Other (Surgical dressing in place) Neck: Yes: Trachea Midline Cardiovascular: Yes: S1, S2 Respiratory: Yes: CTA Bilaterally Gastrointestinal: Yes: Normal Bowel Sounds Musculoskeletal: Yes: Back Pain Neurological: Yes: Weakness. No: Oriented Labs: CBC, BMP 02/24/18 05:30 02/24/18 05:30 INR, PTT INR 1.35 (0.82-1.09) H 02/17/18 21:15 Problem List - Problems (1) MALINDA (acute kidney injury) Code(s): N17.9 - ACUTE KIDNEY FAILURE, UNSPECIFIED (2) S/P craniotomy Code(s): Z98.890 - OTHER SPECIFIED POSTPROCEDURAL STATES (3) Spinal stenosis Code(s): M48.00 - SPINAL STENOSIS, SITE UNSPECIFIED Qualifiers: Spinal region: unspecified Qualified Code(s): M48.00 - Spinal stenosis, site unspecified (4) Subdural hemorrhage Code(s): I62.00 - NONTRAUMATIC SUBDURAL HEMORRHAGE, UNSPECIFIED (5) Aneurysm of infrarenal abdominal aorta Code(s): I71.4 - ABDOMINAL AORTIC ANEURYSM, WITHOUT RUPTURE (6) CAD (coronary artery disease) Code(s): I25.10 - ATHSCL HEART DISEASE OF [place] CORONARY ARTERY W/O ANG PCTRS Qualifiers: [place] vs. transplanted heart: [place] heart Associated angina: without angina (7) HTN (hypertension) Code(s): I10 - ESSENTIAL (PRIMARY) HYPERTENSION (8) Hypothyroid Code(s): E03.9 - HYPOTHYROIDISM, UNSPECIFIED Qualifiers: Hypothyroidism type: other Qualified Code(s): E03.8 - Other specified hypothyroidism Assessment/Plan 87 year old Gentleman with PMhx of Hypertension, CAD, AAA s/p repair earlier this year, Chronic lower back pain, Spinal Stenosis who presented with increased Lower back pain and LE weakness with Cr of 2. The patient had craniotomy for subdural hematoma. The renal functions are slowly improving. No overt Electrolyte abnormalities, except for mild Hypokalemia, which is due to the long acting Thiazide diuretic. #MALINDA on CKD ..Renal functions stable at this point. #Proteinuria #Subdrual Hematoma # Hypokalemia. Will start KCl supplements. Check serum Mg levels. Thanks again. Diana Almeida MD
--- NOTE | 2018-02-24 11:27 | PN ---
Teaching Attending Note Name of Resident: Farhan Armijo ATTENDING PHYSICIAN STATEMENT I saw and evaluated the patient. I reviewed the resident's note and discussed the case with the resident. I agree with the resident's findings and plan as documented. SUBJECTIVE: Patient seen and examined in the ICU. POD #6: Left craniotomy and evacuation of a Sudural hematoma Awake and alert. Remains mildly confused. Denies CP or SOB. Denies DUEÑAS, BOV, dizziness, etc. Intake & Output 02/21/18 02/22/18 02/23/18 02/24/18 23:59 23:59 23:59 23:59 Intake Total 770 270 540 230 Output Total 3800 2220 2200 1100 Balance -3030 -1950 -1660 -870 Weight 132 lb 0.91 oz 132 lb 0.91 oz 133 lb 1.6 oz 125 lb 10.616 oz Last Vital Signs Temp Pulse Resp BP Pulse Ox 98.3 F 60 19 153/53 99 02/24/18 10:00 02/24/18 10:00 02/24/18 10:00 02/24/18 10:00 02/22/18 09:00 Active Medications Acetaminophen (Tylenol -) 650 mg PO Q6H PRN PRN Reason: FEVER Amlodipine Besylate (Norvasc -) 5 mg PO DAILY [facility] Last Admin: 02/24/18 10:02 Dose: 5 mg Brimonidine Tartrate (Alphagan 0.2% -) 1 drop OD BID [facility] Last Admin: 02/24/18 10:01 Dose: 1 drop Chlorhexidine Gluconate (Hibiclens For Decolonization -) 1 applic TP HS [facility] Last Admin: 02/23/18 22:06 Dose: 1 applic Chlorthalidone (Hygroton -) 25 mg PO DAILY [facility] Last Admin: 02/24/18 10:02 Dose: 25 mg Docusate Sodium (Colace -) 100 mg PO DAILY [facility] Last Admin: 02/24/18 10:01 Dose: 100 mg Gabapentin (Neurontin -) 100 mg PO TID [facility] Last Admin: 02/24/18 06:21 Dose: 100 mg Hydralazine HCl (Apresoline Injection -) 10 mg IVPUSH Q6H PRN PRN Reason: HYPERTENSION Levetiracetam (Keppra -) 500 mg PO BID [facility] Last Admin: 02/24/18 10:05 Dose: 500 mg Levothyroxine Sodium (Synthroid -) 50 mcg PO DAILY@0700 [facility] Last Admin: 02/24/18 06:53 Dose: 50 mcg Lidocaine (Lidoderm Patch -) 1 patch TP DAILY [facility] Last Admin: 02/24/18 10:02 Dose: 1 patch Metoprolol Tartrate (Lopressor -) 25 mg PO BID [facility] Last Admin: 02/24/18 10:02 Dose: Not Given Miscellaneous (Lidoderm Patch Removal) 1 each MC DAILY@2200 [facility] Last Admin: 02/23/18 22:06 Dose: 1 each Potassium Chloride (K-Dur -) 20 meq PO DAILY [facility] Saliva Substitute (Mouthkote Solution -) 1 applic MM DAILY PRN PRN Reason: dry mouth Timolol Maleate (Timoptic 0.5%) 1 drop OD BID [facility] Last Admin: 02/24/18 10:01 Dose: 1 drop General Appearance: Yes: Awake and alert, NAD HEENT: (-) Pallor, left pupillary changes, (-) Icterus Neck: positive: Trachea midline, Supple. negative: Tender, Rigid Respiratory/Chest: positive: Clear, (-) Crackles, Wheezing Cardiovascular: positive: Regular Rhythm, Regular Rate. negative: Edema, JVD, Murmur Gastrointestinal/Abdominal: positive: Normal Bowel Sounds, Soft. negative: Organomegaly, Pulsatile Mass, Guarding Musculoskeletal: positive: Normal Inspection. negative: Decreased Range of Motion, Vertebral Tenderness Extremity: positive: Normal Capillary Refill, Normal Inspection, Normal Range of Motion. negative: Tender, Cyanosis Integumentary: positive: Normal Color, Dry, Warm. negative: Erythema, Rash, Bruising Neurologic: No facial droop, non-focal Laboratory Results - last 24 hr 02/24/18 02/24/18 05:30 05:30 WBC 8.2 RBC 3.91 L Hgb 11.8 Hct 33.2 L MCV 84.9 MCH 30.2 MCHC 35.5 RDW 13.6 Plt Count 220 MPV 7.0 L Sodium 141 Potassium 3.4 L Chloride 108 H Carbon Dioxide 27 Anion Gap 6 L BUN 23 H Creatinine 1.7 H Creat Clearance w eGFR 38.32 Random Glucose 81 Calcium 8.5 Total Bilirubin 0.8 AST 21 D ALT 15 Alkaline Phosphatase 60 Total Protein 6.2 L Albumin 3.4 IMP: POD #6: Left craniotomy and evacuation of a Sudural hematoma Acute Left SDH 1.7-1.9 cm mass effect and shift. HTN Hypothyroidism AAA CAD PLAN: Follow Neuro exam O2 as needed Aspiration precautions SCDs Tiny Seizure precautions Clarify with Neurosurgery when ok for antiplatelet Stroke unit monitoring Dr Pinedo
--- NOTE | 2018-02-24 11:46 | PN ---
Progress Note (short form) - Note Progress Note: Pt seen/ examined in icu. Chart reviewed. awake/ comfortable denies pain somewhat confused afebrile Pod # 6 Vital Signs Temp 98.3 F 02/24/18 10:00 Pulse 60 02/24/18 10:00 Resp 19 02/24/18 10:00 BP 153/53 02/24/18 10:00 Pulse Ox 99 02/22/18 09:00 Intake & Output 02/23/18 02/23/18 02/24/18 11:59 23:59 11:59 Intake Total 220 320 230 Output Total 500 1700 1100 Balance -280 -1380 -870 Weight 133 lb 1.6 oz 125 lb 10.616 oz Intake: IVPB 100 200 Oral 120 120 230 Output: Urine 698 967 0326 Penny 218 152 0727 Emesis 800 Other: Voiding Method Indwelling Catheter Indwelling Catheter Indwelling Catheter Bowel Movement Yes Yes # Bowel Movements 2 1 Weight Measurement Method Built in Bedscale Built in Bedscale Active Medications Acetaminophen (Tylenol -) 650 mg PO Q6H PRN PRN Reason: FEVER Amlodipine Besylate (Norvasc -) 5 mg PO DAILY [facility] Last Admin: 02/24/18 10:02 Dose: 5 mg Brimonidine Tartrate (Alphagan 0.2% -) 1 drop OD BID [facility] Last Admin: 02/24/18 10:01 Dose: 1 drop Chlorhexidine Gluconate (Hibiclens For Decolonization -) 1 applic TP HS [facility] Last Admin: 02/23/18 22:06 Dose: 1 applic Chlorthalidone (Hygroton -) 25 mg PO DAILY [facility] Last Admin: 02/24/18 10:02 Dose: 25 mg Docusate Sodium (Colace -) 100 mg PO DAILY [facility] Last Admin: 02/24/18 10:01 Dose: 100 mg Gabapentin (Neurontin -) 100 mg PO TID [facility] Last Admin: 02/24/18 06:21 Dose: 100 mg Hydralazine HCl (Apresoline Injection -) 10 mg IVPUSH Q6H PRN PRN Reason: HYPERTENSION Levetiracetam (Keppra -) 500 mg PO BID [facility] Last Admin: 02/24/18 10:05 Dose: 500 mg Levothyroxine Sodium (Synthroid -) 50 mcg PO DAILY@0700 [facility] Last Admin: 02/24/18 06:53 Dose: 50 mcg Lidocaine (Lidoderm Patch -) 1 patch TP DAILY [facility] Last Admin: 02/24/18 10:02 Dose: 1 patch Metoprolol Tartrate (Lopressor -) 25 mg PO BID [facility] Last Admin: 02/24/18 10:02 Dose: Not Given Miscellaneous (Lidoderm Patch Removal) 1 each MC DAILY@2200 [facility] Last Admin: 02/23/18 22:06 Dose: 1 each Potassium Chloride (K-Dur -) 20 meq PO DAILY [facility] Saliva Substitute (Mouthkote Solution -) 1 applic MM DAILY PRN PRN Reason: dry mouth Timolol Maleate (Timoptic 0.5%) 1 drop OD BID [facility] Last Admin: 02/24/18 10:01 Dose: 1 drop CBC, BMP 02/24/18 05:30 02/24/18 05:30 physical Exam. Constitutional: Yes: No Distress, Calm. comfortable. Cardiovascular: Yes: Regular Rate and Rhythm Respiratory: Yes: CTA Bilaterally. Gastrointestinal: Yes: Normal Bowel Sounds, Soft. No: Tenderness Edema: No Problem List - Problems (1) Subdural hemorrhage Code(s): I62.00 - NONTRAUMATIC SUBDURAL HEMORRHAGE, UNSPECIFIED (2) CAD (coronary artery disease) Code(s): I25.10 - ATHSCL HEART DISEASE OF [place] CORONARY ARTERY W/O ANG PCTRS Qualifiers: [place] vs. transplanted heart: [place] heart Associated angina: without angina (3) Acute renal insufficiency Code(s): N28.9 - DISORDER OF KIDNEY AND URETER, UNSPECIFIED (4) Hypothyroid Code(s): E03.9 - HYPOTHYROIDISM, UNSPECIFIED Qualifiers: Hypothyroidism type: other Qualified Code(s): E03.8 - Other specified hypothyroidism Assessment/Plan stable s/p craniotomy and evacuation of SDH continue present care meds reviewed physical therapy will need str d/c planning discussed with icu attending Discussed with nursing staff also. will follow.
[2018-02-24] MEDS: ASPIRIN 81 MG CHEWABLE TABLETS PO SCH (12:50)
[2018-02-24] MEDS: HEPARIN NA (PORCINE) 5,000 UNITS/ML 1ML VIAL SQ SCH ×2 (15:08→21:31)
[2018-02-24] MEDS ORDERED: LYTES/YERBA SANTA 240 ML BOTTLE MM PRN (16:54)
[2018-02-24] MEDS ORDERED: hydrALAZINE HCL 20 MG/ML VIAL IVPUSH PRN (16:54)
[2018-02-24] MEDS ORDERED: ACETAMINOPHEN 325 MG TABLET (FP) PO PRN (16:54)
--- NOTE | 2018-02-24 17:05 | PN ---
Physical Exam: SUBJECTIVE: Patient seen and examined this am and early afternoon. Pt sitting upright in bed, feeding himself. Pt thought he was home. Still disoriented. Denies any cp, sob, jeffries, nausea, or vomiting. OBJECTIVE: Vital Signs Period Temp Pulse Resp BP Sys/Michel Pulse Ox Last 24 Hr 97.5 F-98.8 F 48-64 15-21 139-185/53-73 GENERAL: Sitting upright in bed, appropriately responding to questions. HEAD: Bandage on head. EYES: EOMI. ENT: WNL NECK: No JVD. Trachea midline LUNGS: CTA B/L HEART: RRR. ABDOMEN: NT, ND, No HSM EXTREMITIES: No CCE. NEUROLOGICAL: Strength upper and lower extremities 4+ SKIN: Bandage on head. Laboratory Results - last 24 hr 02/24/18 02/24/18 05:30 05:30 WBC 8.2 RBC 3.91 L Hgb 11.8 Hct 33.2 L MCV 84.9 MCH 30.2 MCHC 35.5 RDW 13.6 Plt Count 220 MPV 7.0 L Sodium 141 Potassium 3.4 L Chloride 108 H Carbon Dioxide 27 Anion Gap 6 L BUN 23 H Creatinine 1.7 H Creat Clearance w eGFR 38.32 Random Glucose 81 Calcium 8.5 Total Bilirubin 0.8 AST 21 D ALT 15 Alkaline Phosphatase 60 Total Protein 6.2 L Albumin 3.4 Active Medications Generic Name Dose Route Start Last Admin Trade Name Freq PRN Reason Stop Dose Admin Acetaminophen 650 mg 02/19/18 18:25 Tylenol - PO Q6H PRN FEVER Amlodipine Besylate 5 mg 02/21/18 11:30 02/24/18 10:02 Norvasc - PO 5 mg DAILY [facility] Administration Aspirin 81 mg 02/24/18 12:45 02/24/18 12:50 Asa - PO 81 mg DAILY [facility] Administration Brimonidine Tartrate 1 drop 02/19/18 22:00 02/24/18 10:01 Alphagan 0.2% - OD 1 drop BID [facility] Administration Chlorhexidine Gluconate 1 applic 02/19/18 22:00 02/23/18 22:06 Hibiclens For Decolonization - TP 1 applic HS [facility] Administration Chlorthalidone 25 mg 02/20/18 13:00 02/24/18 10:02 Hygroton - PO 25 mg DAILY [facility] Administration Docusate Sodium 100 mg 02/21/18 10:00 02/24/18 10:01 Colace - PO 100 mg DAILY [facility] Administration Gabapentin 100 mg 02/19/18 22:00 02/24/18 13:03 Neurontin - PO 100 mg TID [facility] Administration Heparin Sodium (Porcine) 5,000 unit 02/24/18 14:00 02/24/18 15:08 Heparin - SQ 5,000 unit TID [facility] Administration Hydralazine HCl 10 mg 02/22/18 14:15 Apresoline Injection - IVPUSH Q6H PRN HYPERTENSION Levetiracetam 500 mg 02/24/18 10:00 02/24/18 10:05 Keppra - PO 500 mg BID [facility] Administration Levothyroxine Sodium 50 mcg 02/20/18 07:00 02/24/18 06:53 Synthroid - PO 50 mcg DAILY@0700 [facility] Administration Lidocaine 1 patch 02/20/18 10:00 02/24/18 10:02 Lidoderm Patch - TP 1 patch DAILY [facility] Administration Metoprolol Tartrate 25 mg 02/19/18 22:00 02/24/18 10:02 Lopressor - PO Not Given BID [facility] Miscellaneous 1 each 02/19/18 22:00 02/23/18 22:06 Lidoderm Patch Removal MC 1 each DAILY@2200 [facility] Administration Potassium Chloride 20 meq 02/25/18 10:00 K-Dur - PO DAILY [facility] Saliva Substitute 1 applic 02/19/18 18:25 Mouthkote Solution - MM DAILY PRN dry mouth Timolol Maleate 1 drop 02/19/18 22:00 02/24/18 10:01 Timoptic 0.5% OD 1 drop BID [facility] Administration ASSESSMENT/PLAN: 87 y/o gentleman with a PMH of HTN, Dementia, HLD, 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 Neuro: Pt s/p subdural hematoma evacuated by Dr Nolasco. POD #6 Keppra 500 mg PO BID for seizure ppx. Changed from IV to PO. CT Head 02/18/18---> No Discrete infarct seen. Periventricular white matter microvascular ischemic gliosis. No Obstructive Hydrocephalus. No Gross soft tissue or mass noted. -Spoke with Dr Nolasco today--Resume ASA 81 mg po and Heparin SQ 5,000 U TID. Hypertensive Urgency: - Norvasc 5 mg po daily - Lopressor 25 mg PO BID-Not given due to Bradycardia - Chlorthalidone 25 mg PO Daily -Hydralazine 10 mg IVPUSH Q6H PRN---> Started today -Blood pressure improved, 150's-160's Renal -BUN/CR 23/1.7 today 02/20/18. -Continue to trend renal function and electrolytes. -Nephro on board. Dr Almeida. Recommendations below: 1. Will start KCl supplements. 2. Check serum Mg levels. Hypothyroidism: -Levothyroxine 50 mcg PO Daily FEN No Fluids Monitor Electrolytes- K+ 3.4 this AM. Dysphagia Puree DVT ppx: SCD's. Per Neurosurgery, OK to start Heparin SQ TID 5K U. Dispo: Pt transferred to med-surg this afternoon. . Visit type - Emergency Visit Emergency Visit: Yes ED Registration Date: 02/19/18 Care time: The patient presented to the Emergency Department on the above date and was hospitalized for further evaluation of their emergent condition. - New Patient This patient is new to me today: No - Critical Care Critical Care patient: Yes Total Critical Care Time (in minutes): 36 Critical Care Statement: The care of this patient involved high complexity decision making to prevent further life threatening deterioration of the patient 's condition and/or to evaluate & treat vital organ system(s) failure or risk of failure.
[2018-02-24] MEDS: levETIRAcetam 500 MG TABLET (FP) PO SCH (21:30)
[2018-02-24] MEDS ORDERED: LIDOCAINE PATCH REMOVAL MC SCH ×2 (22:00)
[2018-02-24] MEDS ORDERED: PT OWN MED DRAWER 7, Y5N ONE (23:10)
[2018-02-25] MEDS: GABAPENTIN 100 MG CAPSULE (FP) PO SCH ×2 (06:04→14:23)
[2018-02-25] MEDS: HEPARIN NA (PORCINE) 5,000 UNITS/ML 1ML VIAL SQ SCH ×2 (06:04→14:23)
[2018-02-25] MEDS ORDERED: LEVOTHYROXINE NA 50 MCG TABLET (FP) PO SCH (07:00)
[2018-02-25] MEDS ORDERED: PT OWN MED DRAWER 7, Y5N ONE (09:24)
[2018-02-25] MEDS: levETIRAcetam 500 MG TABLET (FP) PO SCH (09:34)
[2018-02-25] MEDS: ASPIRIN 81 MG CHEWABLE TABLETS PO SCH (09:34)
[2018-02-25] MEDS: BRIMONIDINE TARTRATE 0.2% OPHTHALMIC 5 ML BOTTLE OD SCH (09:34)
--- NOTE | 2018-02-25 09:34 | PN ---
Progress Note (short form) - Note Progress Note: Neurology History of Present Illness Initial Comments: 87 YOM with h/o HTN, hypothyroidism, CAD, AAA with repair earlier this year, and chronic lumbar back pain and spinal stenosis noted on imaging 3 years ago, who presented to the ED with increased chronic low back pain for the past 4 days with worsening of his chronic BLE weakness. His attempted to get him up from his bed but would not get up, which is abnormal for him. He stated his legs were too weak to stand or walk. He was admitted to the hospital and CT L spine showed degenerative changes. On night of admission, noted to have altered mental status and CT head completed which I reviewed and showed acute SDH 1.7- 1.9cm in size per report with mass effect and right to left shift. NSGY completed surgical intervention as documented. Downgraded to floor from ICU. On Keppra 500mg twice daily for now, on PO. No seizure events. Blood pressure improved, 150's/160's. Remains interactive and cooperative but unsure of location and with confusion. Will likely need rehab, placement planning now that downgraded. Antiplatelet medication has been restarted. Active Medications Acetaminophen (Tylenol -) 650 mg PO Q6H PRN PRN Reason: FEVER Last Admin: 02/25/18 02:11 Dose: 650 mg Amlodipine Besylate (Norvasc -) 5 mg PO DAILY [facility] Aspirin (Asa -) 81 mg PO DAILY [facility] Last Admin: 02/24/18 12:50 Dose: 81 mg Brimonidine Tartrate (Alphagan 0.2% -) 1 drop OD BID [facility] Last Admin: 02/24/18 21:40 Dose: 1 drop Chlorthalidone (Hygroton -) 25 mg PO DAILY [facility] Docusate Sodium (Colace -) 100 mg PO DAILY [facility] Gabapentin (Neurontin -) 100 mg PO TID [facility] Last Admin: 02/25/18 06:04 Dose: 100 mg Heparin Sodium (Porcine) (Heparin -) 5,000 unit SQ TID [facility] Last Admin: 02/25/18 06:04 Dose: 5,000 unit Hydralazine HCl (Apresoline Injection -) 10 mg IVPUSH Q6H PRN PRN Reason: HYPERTENSION Last Admin: 02/25/18 01:12 Dose: 10 mg Levetiracetam (Keppra -) 500 mg PO BID [facility] Last Admin: 02/24/18 21:30 Dose: 500 mg Levothyroxine Sodium (Synthroid -) 50 mcg PO DAILY@0700 [facility] Last Admin: 02/25/18 06:04 Dose: 50 mcg Lidocaine (Lidoderm Patch -) 1 patch TP DAILY [facility] Metoprolol Tartrate (Lopressor -) 25 mg PO BID [facility] Last Admin: 02/24/18 21:30 Dose: 25 mg Miscellaneous (Lidoderm Patch Removal) 1 each MC DAILY@2200 [facility] Last Admin: 02/24/18 21:31 Dose: 1 each Potassium Chloride (K-Dur -) 20 meq PO DAILY [facility] Saliva Substitute (Mouthkote Solution -) 1 applic MM DAILY PRN PRN Reason: dry mouth Timolol Maleate (Timoptic 0.5%) 1 drop OD BID [facility] Last Admin: 02/24/18 21:40 Dose: 1 drop *Physical Exam Vital Signs Temperature 98.5 F 02/25/18 06:00 Pulse Rate 68 02/25/18 06:00 Respiratory Rate 20 02/25/18 06:00 Blood Pressure 150/72 02/25/18 06:00 O2 Sat by Pulse Oximetry (%) 96 02/24/18 20:53 - Physical Exam General Appearance: Yes: Nourished, Appropriately Dressed, Not answering questions, somnolent HEENT: positive: EOMI, Normal Voice, Hearing Grossly Normal, Other (right pupil round and reactive to light, left pupil fixed dilated nonreactive stated chronic d/t multiple surgeries and eye injury). negative: Scleral Icterus (R), Scleral Icterus (L), Nasal Congestion Neck: positive: Trachea midline, Supple. negative: Tender, Rigid Respiratory/Chest: positive: Lungs Clear, Normal Breath Sounds. negative: Respiratory Distress, Crackles, Rhonchi, Stridor, Wheezing Cardiovascular: positive: Regular Rhythm, Regular Rate. negative: Edema, JVD, Murmur Gastrointestinal/Abdominal: positive: Normal Bowel Sounds, Soft. negative: Tender, Organomegaly, Pulsatile Mass, Guarding Musculoskeletal: positive: Normal Inspection. negative: Decreased Range of Motion, Vertebral Tenderness Extremity: positive: Normal Capillary Refill, Normal Inspection, Normal Range of Motion. negative: Tender, Cyanosis Integumentary: positive: Normal Color, Dry, Warm. negative: Erythema, Rash, Bruising Neurologic: No facial droop, responds to voice, sensory intact to tactile stim , moves extremities but not participating in confrontation testing CBCD WBC 8.2 K/mm3 (4.0-10.0) 02/24/18 05:30 RBC 3.91 M/mm3 (4.00-5.60) L 02/24/18 05:30 Hgb 11.8 GM/dL (11.7-16.9) 02/24/18 05:30 Hct 33.2 % (35.4-49) L 02/24/18 05:30 MCV 84.9 fl (80-96) 02/24/18 05:30 MCHC 35.5 g/dl (32.0-35.9) 02/24/18 05:30 RDW 13.6 % (11.9-15.9) 02/24/18 05:30 Plt Count 220 K/MM3 (134-434) 02/24/18 05:30 MPV 7.0 fl (7.5-11.1) L 02/24/18 05:30 CMP Sodium 141 mmol/L (136-145) 02/24/18 05:30 Potassium 3.4 mmol/L (3.5-5.1) L 02/24/18 05:30 Chloride 108 mmol/L (98-107) H 02/24/18 05:30 Carbon Dioxide 27 mmol/L (21-32) 02/24/18 05:30 Anion Gap 6 (8-16) L 02/24/18 05:30 BUN 23 mg/dL (7-18) H 02/24/18 05:30 Creatinine 1.7 mg/dL (0.7-1.3) H 02/24/18 05:30 Creat Clearance w eGFR 38.32 (>60) 02/24/18 05:30 Random Glucose 81 mg/dL (74-106) 02/24/18 05:30 Calcium 8.5 mg/dL (8.5-10.1) 02/24/18 05:30 Total Bilirubin 0.8 mg/dL (0.2-1.0) 02/24/18 05:30 AST 21 U/L (15-37) D 02/24/18 05:30 ALT 15 U/L (12-78) 02/24/18 05:30 Alkaline Phosphatase 60 U/L (45-117) 02/24/18 05:30 Total Protein 6.2 g/dl (6.4-8.2) L 02/24/18 05:30 Albumin 3.4 g/dl (3.4-5.0) 02/24/18 05:30 CARDIAC ENZYMES Creatine Kinase 49 IU/L (39-308) 02/17/18 21:45 Troponin I < 0.02 ng/ml (0.00-0.05) 02/17/18 21:[address] L spine reviewed Medical Decision Making 87 YOM with h/o HTN, hypothyroidism, CAD, AAA with repair earlier this year, and chronic lumbar back pain and spinal stenosis noted on imaging 3 years ago, who presented to the ED with increased chronic low back pain for the past 4 days with worsening of his chronic BLE weakness. His attempted to get him up from his bed but would not get up, which is abnormal for him. He stated his legs were too weak to stand or walk. He was admitted to the hospital and CT L spine showed degenerative changes. On night of admission, noted to have altered mental status and CT head completed which I reviewed and showed acute SDH 1.7- 1.9cm in size per report with mass effect and right to left shift with neurosurgical intervention Downgraded to floor On Keppra 500mg twice daily for now, PO. No seizure events. Blood pressure improved, 150's-160's Has been ordered for hydralazine. Advised tight bp control. Remains interactive and cooperative but unsure of location and with confusion. Antiplatelet medication restated Neurologically stable, rehab placement/planning fall precautions avoid any further head injury
[2018-02-25] MEDS: TIMOLOL 0.5% OPHTHALMIC SOL 5 ML BOTTLE OD SCH (09:35)
[2018-02-25] MEDS: METOPROLOL TARTRATE 25 MG TABLET (FP) PO SCH (09:36)
[2018-02-25] MEDS ORDERED: DOCUSATE SODIUM 100 MG CAPSULE (FP) PO SCH (10:00)
[2018-02-25] MEDS ORDERED: POTASSIUM CHLORIDE TABS 10 MEQ TABLET.ER (FP) PO SCH ×2 (10:00)
[2018-02-25] MEDS ORDERED: amLODIPine BESYLATE 5 MG TABLET (FP) PO SCH (10:00)
[2018-02-25] MEDS ORDERED: CHLORTHALIDONE 25 MG TABLET PO SCH (10:00)
[2018-02-25] MEDS ORDERED: LIDOCAINE 5% TOPICAL PATCH TP SCH (10:00)
--- NOTE | 2018-02-25 10:14 | PN ---
Progress Note, Physician Chief Complaint: see dc summary - Current Medication List Current Medications: Active Medications Acetaminophen (Tylenol -) 650 mg PO Q6H PRN PRN Reason: FEVER Last Admin: 02/25/18 02:11 Dose: 650 mg Amlodipine Besylate (Norvasc -) 5 mg PO DAILY [facility] Last Admin: 02/25/18 09:34 Dose: 5 mg Aspirin (Asa -) 81 mg PO DAILY [facility] Last Admin: 02/25/18 09:34 Dose: 81 mg Brimonidine Tartrate (Alphagan 0.2% -) 1 drop OD BID [facility] Last Admin: 02/25/18 09:34 Dose: 1 drop Chlorthalidone (Hygroton -) 25 mg PO DAILY [facility] Last Admin: 02/25/18 09:34 Dose: 25 mg Docusate Sodium (Colace -) 100 mg PO DAILY [facility] Last Admin: 02/25/18 09:34 Dose: 100 mg Gabapentin (Neurontin -) 100 mg PO TID [facility] Last Admin: 02/25/18 06:04 Dose: 100 mg Heparin Sodium (Porcine) (Heparin -) 5,000 unit SQ TID [facility] Last Admin: 02/25/18 06:04 Dose: 5,000 unit Hydralazine HCl (Apresoline Injection -) 10 mg IVPUSH Q6H PRN PRN Reason: HYPERTENSION Last Admin: 02/25/18 01:12 Dose: 10 mg Levetiracetam (Keppra -) 500 mg PO BID [facility] Last Admin: 02/25/18 09:34 Dose: 500 mg Levothyroxine Sodium (Synthroid -) 50 mcg PO DAILY@0700 [facility] Last Admin: 02/25/18 06:04 Dose: 50 mcg Lidocaine (Lidoderm Patch -) 1 patch TP DAILY [facility] Last Admin: 02/25/18 09:35 Dose: 1 patch Metoprolol Tartrate (Lopressor -) 25 mg PO BID [facility] Last Admin: 02/25/18 09:36 Dose: 25 mg Miscellaneous (Lidoderm Patch Removal) 1 each MC DAILY@2200 [facility] Last Admin: 02/24/18 21:31 Dose: 1 each Potassium Chloride (K-Dur -) 20 meq PO DAILY [facility] Last Admin: 02/25/18 09:36 Dose: 20 meq Saliva Substitute (Mouthkote Solution -) 1 applic MM DAILY PRN PRN Reason: dry mouth Timolol Maleate (Timoptic 0.5%) 1 drop OD BID [facility] Last Admin: 02/25/18 09:35 Dose: 1 drop - Objective Vital Signs: Vital Signs Temperature 98.5 F 02/25/18 06:00 Pulse Rate 68 02/25/18 06:00 Respiratory Rate 20 02/25/18 06:00 Blood Pressure 150/72 02/25/18 06:00 O2 Sat by Pulse Oximetry (%) 96 02/24/18 20:53 Labs: CBC, BMP 02/24/18 05:30 02/24/18 05:30 INR, PTT INR 1.35 (0.82-1.09) H 02/17/18 21:15 Problem List - Problems (1) Subdural hemorrhage Code(s): I62.00 - NONTRAUMATIC SUBDURAL HEMORRHAGE, UNSPECIFIED (2) CAD (coronary artery disease) Code(s): I25.10 - ATHSCL HEART DISEASE OF [place] CORONARY ARTERY W/O ANG PCTRS Qualifiers: [place] vs. transplanted heart: [place] heart Associated angina: without angina (3) Acute renal insufficiency Code(s): N28.9 - DISORDER OF KIDNEY AND URETER, UNSPECIFIED (4) Hypothyroid Code(s): E03.9 - HYPOTHYROIDISM, UNSPECIFIED Qualifiers: Hypothyroidism type: other Qualified Code(s): E03.8 - Other specified hypothyroidism
--- NOTE | 2018-02-25 11:09 | PN ---
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 Aspiration risk as he talks and jokes/ laughs with food in oral cavity/pharynx. Greater risk with solids. 3 oz water still with responsive cough. Encourage pt not to speak until after he swallows. Neck roll for head support to eliminate head extension which opens airway and increases risk of aspiration. . Selected Entries 02/19/18 02/20/18 02/24/18 09:01 08:00 10:29 Breakfast 100% 100% Lunch 75% Supper Temperature 02/24/18 02/24/18 02/25/18 13:43 18:00 00:57 Breakfast Lunch 50% Supper 50% Temperature 98.7 F 02/25/18 02/25/18 06:00 10:00 Breakfast Lunch Supper Temperature 98.5 F 98.3 F Laboratory Tests 02/24/18 05:30 WBC 8.2 Pt sleepy. Defer diet upgrade due to increased aspiration risk. Pt enjoys present diet and is tolerating it well . Continue puree/nectar
--- NOTE | 2018-02-25 12:19 | DS ---
Physical Examination Vital Signs: Vital Signs Temperature 98.3 F 02/25/18 10:00 Pulse Rate 88 02/25/18 10:00 Respiratory Rate 20 02/25/18 10:00 Blood Pressure 156/76 02/25/18 10:00 O2 Sat by Pulse Oximetry (%) 96 02/25/18 09:00 Constitutional: Yes: No Distress Cardiovascular: Yes: Regular Rate and Rhythm Respiratory: Yes: CTA Bilaterally Gastrointestinal: Yes: Normal Bowel Sounds, Soft. No: Tenderness Edema: No Labs: CBC, BMP 02/24/18 05:30 02/24/18 05:30 Discharge Summary Reason For Visit: ACUTE KIDNEY INJURY/FAILURE TO THRIVE/ Current Active Problems MALINDA (acute kidney injury) (Acute) Failure to thrive (Acute) S/P craniotomy (Acute) Spinal stenosis (Acute) Subdural hemorrhage (Acute) Hospital Course: ER HISTORY - History of Present Illness Initial Comments: This is an 87 Yr male with h/o HTN, hypothyroidism, CAD, AAA with repair earlier this year, and chronic lumbar back pain and spinal stenosis noted on imaging 3 years ago, who presents to the ED with increased chronic low back pain for the past 4 days with worsening of his chronic BLE weakness. His attempted to get him up from his bed several times today and he would not get up , which is abnormal for him. He stated his legs were to weak to stand or walk. He did not eat anything all day. Hospital Course Pt had HTN emergency- CT head- subdural hemorrhage on left Evacuated by Neurosurgeon on 02/18 Had acute on CKD - seen by Renal - renal function better BP better pt was in ICU post op-- post op uneventful will need SNF for rehab Condition: Improved - Instructions Referrals: Michael Lenz MD [Primary Care Provider] - Disposition: [facility]ILITY - Home Medications Comprehensive Discharge Medication List: Ambulatory Orders Levothyroxine [Synthroid -] 50 mcg PO DAILY 12/19/14 Cholecalciferol (Vitamin D3) [Vitamin D3] 5,000 unit PO DAILY 12/20/14 Brimonidine Tartrate/Timolol [Combigan 0.2%-0.5% Eye Drops] 1 drop OD DAILY 01/13 Brimonidine Tartrate/Timolol [Combigan 0.2%-0.5% Eye Drops] 5 ml OS BID Eluxadoline [Viberzi] 75 mg PO DAILY 10/01/17 Acetaminophen [Tylenol .Regular Strength -] 650 mg PO Q6H PRN tablet 10/07/17 Aspirin [ASA -] 81 mg PO DAILY tab.chew 10/07/17 Metoprolol Tartrate [Lopressor -] 25 mg PO BID #60 tablet 10/07/17
[2018-02-25] MEDS ORDERED: amLODIPine BESYLATE 10 MG TABLET (FP) PO SCH (12:32)
[2018-02-25 13:46] VITALS: BP 124/63; PULSE 62; TEMP 97.5
== END 2018-02-25 18:30 | DRG 26 ==
LOC: SUPCPDRO 20:06 → JER 20:06 → JERBED 02-16 00:35 → UNDOADMOB 02-16 00:35 → INTOOBSV 02-16 00:35 → JERBED 02-16 07:30 → J6S 02-16 16:25 → JERBED 02-17 06:39 → J4W 02-17 06:40 → JICU 02-17 08:26 → OBSVTOIN 02-19 11:30 → JICU 02-19 13:59 → J7W 02-24 16:13
PROVIDERS: ADMIT Internal Medicine; ATTEND Internal Medicine
PROC: 00940ZZ Drainage of Intracranial Subdural Space, Open Approach (ICD-10-PCS; principal; 2018-02-18 11:00)
DX: I62.01 Nontraumatic acute subdural hemorrhage (principal); N17.9 Acute kidney failure, unspecified; E87.0 Hyperosmolality and hypernatremia; R62.7 Adult failure to thrive; I16.0 Hypertensive urgency; E87.6 Hypokalemia; R13.10 Dysphagia, unspecified; I12.9 Hypertensive chronic kidney disease with stage 1 through stage 4 chronic kidney disease, or unspecified chronic kidney disease; N18.9 Chronic kidney disease, unspecified; E03.9 Hypothyroidism, unspecified; M48.061 Spinal stenosis, lumbar region without neurogenic claudication; R80.9 Proteinuria, unspecified; I25.10 Atherosclerotic heart disease of native coronary artery without angina pectoris; M54.5 Low back pain; Z95.1 Presence of aortocoronary bypass graft; I44.0 Atrioventricular block, first degree; F03.90 Unspecified dementia, unspecified severity, without behavioral disturbance, psychotic disturbance, mood disturbance, and anxiety; M10.9 Gout, unspecified; M35.3 Polymyalgia rheumatica
CPT/HCPCS: 36415; 70450-TC; 71045-TC-FY; 72131-TC; 76775-TC; 80048; 80053; 81003; 81015; 82040; 82465; 82550; 82570; 82962; 83718; 83721; 83735; 84100; 84155; 84156; 84165; 84300; 84478; 84484; 85025; 85027; 85610; 86850; 86900; 86901; 87086; 93005; 93010; 97116-GP; 97161-GP; 99284-25; G0378; J0131; J1644; J7030

== ENCOUNTER 2018-03-16 12:45 | Inpatient (IN) | payer OTHER, BC ==
--- NOTE | 2018-03-16 12:56 | PDOC ---
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 The patient's GF/MOPA states that over the last week the patient has had a gradual decrease in functionality including decreased ability to ambulate, feed himself and write. Per the MOPA, he is also eating less than usual and per the fdc, he has been hiding food/ requiring more assistance to eat. Per MOPA, no recent fevers, on ASA 81 daily, no cough, no V/D. 03/16/18 13:01 Past History - Past Medical History Allergies/Adverse Reactions: Allergies Allergy/AdvReac Type Severity Reaction Status Date / Time No Known Allergies Allergy Verified 03/16/18 12:52 Home Medications: Ambulatory Orders Brimonidine Tartrate/Timolol [Combigan 0.2%-0.5% Eye Drops] 1 drop OD DAILY 01/13 Eluxadoline [Viberzi] 75 mg PO DAILY 10/01/17 Aspirin [ASA -] 81 mg PO DAILY tab.chew 10/07/17 Metoprolol Tartrate [Lopressor -] 25 mg PO BID #60 tablet 10/07/17 Acetaminophen [Tylenol .Regular Strength -] 650 mg PO Q6H PRN #30 tablet Amlodipine Besylate [Norvasc -] 10 mg PO DAILY #30 tablet 02/25/18 Chlorthalidone [Hygroton -] 25 mg PO DAILY #30 tablet 02/25/18 Docusate Sodium [Colace -] 100 mg PO DAILY #60 capsule 02/25/18 Gabapentin [Neurontin -] 100 mg PO TID #90 capsule 02/25/18 Potassium Chloride [K-Dur -] 20 meq PO DAILY #30 tablet.er 02/25/18 levETIRAcetam [Keppra -] 500 mg PO BID #60 tablet 02/25/18 Levothyroxine [Synthroid -] 50 mcg PO DAILY@0600 03/16/18 Cardiac Disorders: Yes (AAA- repair september 2017, AAA repair, CABG) COPD: No GI Disorders: Yes (IBS) Disorders: Yes (prostate disease) HTN: Yes Thyroid Disease: Yes (hypothyroidism, POLYMYALGIA) - Surgical History Abdominal Surgery: Yes (UMBILICAL HERNIA REPAIR-) Cardiac Surgery: Yes (CABG) - Suicide/Smoking/Psychosocial Hx Smoking Status: No Smoking History: Never smoked Have you smoked in the past 12 months: No Number of Cigarettes Smoked Daily: 0 Hx Alcohol Use: Yes (SOCIALLY) Drug/Substance Use Hx: No Substance Use Type: None Hx Substance Use Treatment: No Review of Systems - Review of Systems Able to Perform ROS?: Yes Comments:: GENERAL/CONSTITUTIONAL: No fever or chills CARDIOVASCULAR: No chest pain RESPIRATORY: No cough GASTROINTESTINAL: No vomiting, diarrhea GENITOURINARY: No dysuria, frequency, or change in urination NEUROLOGIC: No headache 03/16/18 18:39 *Physical Exam - Vital Signs Vital Signs Temp Pulse Resp BP Pulse Ox 98.0 F 69 20 152/62 100 03/16/18 19:30 03/16/18 19:30 03/16/18 19:30 03/16/18 19:30 03/16/18 19:30 03/16/18 23:40 - Physical Exam Comments: GENERAL: Awake, oriented to person not place or time HEAD: Left parietal bandage EYES: R pupil 2mm reactive; L pupil fixed (looks traumatic and per MOPA has been like that for 3.5y) ENT: Auricles normal inspection, hearing grossly normal, nares patent, oropharynx clear without exudates. Moist mucosa NECK: Normal ROM, supple, no lymphadenopathy LUNGS: No distress, speaks full sentences, clear to auscultation bilaterally HEART:Regular rate and rhythm, normal S1 and S2, no murmurs appreciated, peripheral pulses normal and equal bilaterally ABDOMEN: Soft, nontender, normoactive bowel sounds. No guarding, no rebound. EXTREMITIES : No edema. No clubbing or cyanosis NEUROLOGICAL: Cranial nerves II through XII grossly intact. No focal sensorimotor deficits. Strength 4/5 throughout SKIN: Warm, Dry, normal turgor 03/16/18 18:41 Critical Care Time/MDM Note - Medical Decision Making Note: The patient is an 87M with a history of CVA s/p evacuation (02/18/2018), AAA s/p repair, and CABG who presents from [facility] for altered mental status and failure to thrive. ED Course CMP, CBC, Trop I, UA, UCx, Coags CT Head, ECG, CXR Trop I mild elevation to 0.09, ECG without acute change or ST elevation CT Head with evidence of acute subdural hematoma Dr. Nolasco contacted given recent surgical hx 03/16/18 14:[address] Harding, will admit with ICU consult/placement 03/16/18 14:51 Patient transfused plt given ASA usage at fdc and re-bleed Plan for admission to ICU for neuro checks and obs for re-bleed 03/16/18 15:29 Dispo: ICU 03/16/18 18:44 03/16/18 18:46 Discharge Disposition - Diagnosis Cerebrovascular accident (CVA) - Discharge Dispostion Condition at time of disposition: Guarded Decision to Admit order: Yes - Referrals - Patient Instructions - Post Discharge Activity
--- NOTE | 2018-03-16 12:57 | PDOC ---
Attending Attestation - Medical Decision Making 03/16/18 14:37 Pt presents to the ED complaining of 03/16/18 14:39 Pt presents to the ED after sent in for 5 days of slowly declining mental status. History of subdural, s/p craniotomy. On exam, patient is awake and cooperative but clearly confused. CT shows acute on chronic subdural. Ct from 02/18 shows complete evacuation of the subdural . Case discussed with Dr. Rhoades who recommends admission, holding ASA and platelet function testing. Will consult critical care and admit to medicine. <Cassy Alford - Last Filed: 03/16/18 14:37> - HPI HPI: 03/16/18 15:19 The patient is an 87-year-old male presents to the emergency department via EMS from [facility] with AMS. As per the NV, the patient presents secondary to altered mental status for the past 5 days with failure to thrive. NV reports, the patient at baseline was able to ambulate, feed himself and was able to write. For the past 5 days, the patients been nonambulatory and unable to feed himself. The patient is s/p craniotomy and evacuation of hematoma 02/18/[address] Patrick Nolasco PMHx: HTN, Prostate problems, L. orbital fracture with decreased vision, Gout, Osteopenia, CAD, and hx of umbilical hernia. PSHx: CABG(2004) x4 Stent, Percutaneous endovascular repair of Abdominal Aortic Aneurysm. Bilateral iliac angioplasty (09/2017), Craniotomy and evacuation of hematoma (02/18/2018). Appendectomy, tonsillectomy PCP: Michael Wells MD Neurosurgery: Dr. Patrick Nolasco. - Physicial Exam PE: 03/16/18 15:26 GENERAL: (+) Alert and oriented x1. No acute distress. HEAD: No signs of trauma LUNGS: Breath sounds equal, clear to auscultation bilaterally. No wheezes, and no crackles HEART: Regular rate and rhythm, normal S1 and S2, no murmurs, rubs or gallops ABDOMEN: Soft, nontender, normoactive bowel sounds. No guarding, no rebound. No masses EXTREMITIES: Moving all extremity. no edema. No clubbing or cyanosis. No cords , erythema, or tenderness NEUROLOGICAL: 4/5 B/l lower extremity strength. Oriented to person only. Response to questions and answers them but appears mildly confused. SKIN: Warm, Dry, normal turgor, no rashes or lesions noted. - Medical Decision Making 03/16/18 14:[address] Nolasco at 2:27 pm, spoke with the answering service, who informed us that Dr. Nolasco [place] and the best way to contact the doctor is through [employer]. Fragegglog was sent at 14:32. Fragegglog was responded by Dr. Nolasco at 14:34. 03/16/18 14:[address] Yessy Rothman for admission, spoke with the answering service. Waiting for a call back from Dr. Harding. 03/16/18 15:[address] Harding. <Yuli Gale - Last Filed: 03/16/18 15:44>
[2018-03-16 13:28] LABS: HEMATOCRIT 30.8 % (35.4-49); HEMOGLOBIN 11.1 GM/dL (11.7-16.9); MCH 30.2 pg (25.7-33.7); MCHC 36.1 g/dl (32.0-35.9); MEAN CELL VOLUME 83.7 fl (80-96); MEAN PLT VOLUME 6.8 fl (7.5-11.1); PLATELET COUNT 231 K/MM3 (134-434); RBC 3.68 M/mm3 (4.00-5.60); RDW 12.7 % (11.9-15.9); WHITE BLOOD COUNT 7.4 K/mm3 (4.0-10.0)
[2018-03-16 13:39] LABS: INR 1.33 (0.83-1.09)
[2018-03-16 13:42] LABS: ACTIVATED PTT 33.5 SECONDS (25.2-36.5)
[2018-03-16] MEDS ORDERED: SODIUM CHLORIDE 0.9% 500 ML INFUS.BAG IV ONE (13:46)
[2018-03-16 13:50] LABS: ALBUMIN 3.3 g/dl (3.4-5.0); ANION GAP 10 (8-16); BILIRUBIN,TOTAL 0.5 mg/dL (0.2-1.0); BLOOD UREA NITROGEN 35 mg/dL (7-18); CALCIUM 9.1 mg/dL (8.5-10.1); CHLORIDE 97 mmol/L (98-107); CO2 30 mmol/L (21-32); GLUCOSE,RANDOM 119 mg/dL (74-106); POTASSIUM 3.1 mmol/L (3.5-5.1); SGOT/AST 18 U/L (15-37); SGPT/ALT 15 U/L (12-78); SODIUM 137 mmol/L (136-145); TOT PROT 6.7 g/dl (6.4-8.2)
[2018-03-16 13:51] LABS: ALK PHOS 96 U/L (45-117)
--- NOTE | 2018-03-16 16:35 | CONSULT ---
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 Pt denies any complaints at this time including DUEÑAS, dizziness, visual changes, hearing changes, N/V/F/C, CP, SOB, dysuria, diarrhea, abd pain. He is AAOx2 (knows his name and that he is in a hospital). Pt denies falling. Pt was found to have acute on chronic subdural hematoma with midline shift of 0.8 cm which is unchanged from previous head CT. Subdural hematoma is measured at 1.2 cm currently. 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 PSHx: CABG(2004) x4 Stent, AAA repair (09/2017), Craniectomy s/p subdural hematoma (January 2018) SH: denies smoking, drinking, drugs Allergies: NKDA REVIEW OF SYSTEMS: CONSTITUTIONAL: Absent: fever, chills HEENT: Absent: hearing changes, visual changes CARDIOVASCULAR: Absent: chest pain, lightheadedness RESPIRATORY: Absent: shortness of breath GASTROINTESTINAL: Absent: abdominal pain, nausea, vomiting, diarrhea GENITOURINARY: Absent: dysuria NEUROLOGIC: Absent: headache, focal weakness or paresthesias, dizziness PHYSICAL EXAMINATION Vital Signs - 24 hr 03/16/18 03/16/18 12:52 14:48 Temperature 98.6 F Pulse Rate 57 L Pulse Rate [ 61 Apical] Respiratory 17 16 Rate Blood Pressure 131/61 Blood Pressure 144/67 [Right Arm] O2 Sat by Pulse 99 100 Oximetry (%) GENERAL: Awake, alert, and oriented to self and place. In no acute distress. HEAD: s/p L sided craniectomy EYES: R eye round and reactive to light. L pupil fixed and dilated (was noted on previous admission chart work). EARS, NOSE, THROAT: Ears normal, nares patent. Moist mucous membranes. NECK: Normal range of motion, supple. LUNGS: Breath sounds equal, clear to auscultation bilaterally. HEART: Regular rate and rhythm, normal S1 and S2 ABDOMEN: Soft, nontender, not distended, normoactive bowel sounds MUSCULOSKELETAL: No CVA tenderness. UPPER EXTREMITIES: warm, well-perfused. LOWER EXTREMITIES: warm, well-perfused. No calf tenderness. No peripheral edema. NEUROLOGICAL: Cranial nerves II-XII intact. Normal speech. 5/5 b/l UE and LE strength. PSYCHIATRIC: Cooperative. Good eye contact. Appropriate mood and affect. SKIN: Warm, dry Laboratory Results - last 24 hr 03/16/18 03/16/18 03/16/18 13:00 13:00 13:00 WBC 7.4 RBC 3.68 L Hgb 11.1 L Hct 30.8 L MCV 83.7 MCH 30.2 MCHC 36.1 H RDW 12.7 Plt Count 231 MPV 6.8 L PT with INR INR PTT (Actin FS) Sodium 137 Potassium 3.1 L Chloride 97 L D Carbon Dioxide 30 Anion Gap 10 BUN 35 H Creatinine 2.0 H Creat Clearance w eGFR 31.76 Random Glucose 119 H D Calcium 9.1 Total Bilirubin 0.5 AST 18 ALT 15 Alkaline Phosphatase 96 D Creatine Kinase 21 L Troponin I 0.09 H D Total Protein 6.7 Albumin 3.3 L Blood Type Antibody Screen 03/16/18 03/16/18 13:00 14:31 WBC RBC Hgb Hct MCV MCH MCHC RDW Plt Count MPV PT with INR 15.00 H INR 1.33 H PTT (Actin FS) 33.5 Sodium Potassium Chloride Carbon Dioxide Anion Gap BUN Creatinine Creat Clearance w eGFR Random Glucose Calcium Total Bilirubin AST ALT Alkaline Phosphatase Creatine Kinase Troponin I Total Protein Albumin Blood Type O NEGATIVE Antibody Screen Negative ASSESSMENT/PLAN: 87 y/o M w/PMH HTN, Dementia, HLD, 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 Found to have acute on chronic subdural hematoma. -Acute on chronic subdural hematoma -Stop ASA -Neurosurgery consult -Midline shift is same as previous admission's midline shift -No focal neurological deficits seen at this time -Neuro checks q2h -CT head tomorrow to check for evolution of subdural hematoma -receiving platelets in ER -Keep head of bed elevated to 30 degrees -NPO for now -continue keppra -goal BP <140 systolic unless signs of hypoperfusion -Elevated trops -will continue to trend, unlikely to be ACS -pt has CKD and may be not be clearing trops -CKD -Cr near baseline -Continue to monitor -HTN -goal sBP <140 unless signs of hypoperfusion -DVT ppx -SCDs -FEN -No fluids at this time -Monitor electrolytes. Hypokalemia - repleted -NPO Dispo: Can monitor in ICU. If pt remains stable and no evolution of subdural hematoma or neurological deficits seen pt can likely be monitored on tele. Visit type - Emergency Visit Emergency Visit: Yes ED Registration Date: 03/16/18 Care time: The patient presented to the Emergency Department on the above date and was hospitalized for further evaluation of their emergent condition. - New Patient This patient is new to me today: Yes Date on this admission: 03/16/18 - Critical Care Critical Care patient: Yes Total Critical Care Time (in minutes): 49 Critical Care Statement: The care of this patient involved high complexity decision making to prevent further life threatening deterioration of the patient 's condition and/or to evaluate & treat vital organ system(s) failure or risk of failure.
[2018-03-16] MEDS ORDERED: KCL 10 MEQ IVPB 10 MEQ/100 ML INFUS.BAG IVPB ONE ×2 (17:03→18:10)
[2018-03-16] MEDS: KCL 10 MEQ IVPB 10 MEQ/100 ML INFUS.BAG IVPB SCH ×3 (17:21→19:30)
--- NOTE | 2018-03-16 19:12 | EKG ---
Test Reason : Blood Pressure : / mmHG Vent. Rate : 062 BPM Atrial Rate : 061 BPM P-R Int : 000 ms QRS Dur : 084 ms QT Int : 412 ms P-R-T Axes : 000 029 030 degrees QTc Int : 418 ms POOR DATA QUALITY, INTERPRETATION MAY BE ADVERSELY AFFECTED NORMAL SINUS RHYTHM NONSPECIFIC ST ABNORMALITY ABNORMAL ECG Confirmed by MD VENKATA, JOSÉ MANUEL ([id number]) on 03/16/2018 7:12:05 PM Referred By: Confirmed By:JOSÉ MANUEL HASTINGS MD
--- NOTE | 2018-03-16 19:13 | EKG ---
Test Reason : Blood Pressure : / mmHG Vent. Rate : 055 BPM Atrial Rate : 055 BPM P-R Int : 000 ms QRS Dur : 086 ms QT Int : 428 ms P-R-T Axes : 000 013 012 degrees QTc Int : 409 ms POOR DATA QUALITY, INTERPRETATION MAY BE ADVERSELY AFFECTED NORMAL SINUS RHYTHM NONSPECIFIC ST ABNORMALITY ST DEPRESSION, CONSIDER SUBENDOCARDIAL INJURY OR DIGITALIS EFFECT ABNORMAL ECG Confirmed by MD VENKATA, JOSÉ MANUEL (2013) on 03/16/2018 7:13:21 PM Referred By: Confirmed By:JOSÉ MANUEL HASTINGS MD
[2018-03-16] MEDS: levETIRAcetam 500 MG/5 ML INJECTION VIAL IVPB SCH (22:58)
[2018-03-17] MEDS ORDERED: PT OWN MED DRAWER 7, Y5N ONE (06:03)
[2018-03-17 06:32] LABS: BASO % 0.4 % (0-2.0); HEMATOCRIT 27.8 % (35.4-49); HEMOGLOBIN 10.2 GM/dL (11.7-16.9); LYMPH % 19.1 % (8-40); MCH 30.3 pg (25.7-33.7); MCHC 36.7 g/dl (32.0-35.9); MEAN CELL VOLUME 82.6 fl (80-96); MEAN PLT VOLUME 7.3 fl (7.5-11.1); MONO % 11.6 % (3.8-10.2); NEUT % 64.9 % (42.8-82.8); PLATELET COUNT 283 K/MM3 (134-434); RBC 3.37 M/mm3 (4.00-5.60); RDW 12.7 % (11.9-15.9); WHITE BLOOD COUNT 7.3 K/mm3 (4.0-10.0)
[2018-03-17 06:49] LABS: ALBUMIN 3.4 g/dl (3.4-5.0); ALK PHOS 92 U/L (45-117); ANION GAP 11 (8-16); BILIRUBIN,TOTAL 0.7 mg/dL (0.2-1.0); BLOOD UREA NITROGEN 28 mg/dL (7-18); CALCIUM 9.2 mg/dL (8.5-10.1); CHLORIDE 99 mmol/L (98-107); CO2 29 mmol/L (21-32); CREATININE 1.6 mg/dL (0.7-1.3); GLUCOSE,RANDOM 81 mg/dL (74-106); SGOT/AST 17 U/L (15-37); SGPT/ALT 19 U/L (12-78); SODIUM 139 mmol/L (136-145); TOT PROT 6.8 g/dl (6.4-8.2)
[2018-03-17 06:50] LABS: INR 1.35 (0.83-1.09); PROTHROMBIN TIME (PATIENT) 15.2 SEC (9.7-13.0)
[2018-03-17 06:53] LABS: ACTIVATED PTT 33.6 SECONDS (25.2-36.5)
[2018-03-17] MEDS ORDERED: LEVOTHYROXINE SODIUM 100 MCG VIAL IVPUSH SCH (07:00)
[2018-03-17 07:02] LABS: POTASSIUM 2.7 mmol/L (3.5-5.1)
[2018-03-17] MEDS: KCL 10 MEQ IVPB 10 MEQ/100 ML INFUS.BAG IVPB SCH ×4 (08:00→14:00)
[2018-03-17] MEDS ORDERED: ACETAMINOPHEN 325 MG TABLET (FP) PO PRN (10:07)
[2018-03-17] MEDS: amLODIPine BESYLATE 10 MG TABLET (FP) PO SCH (10:14)
[2018-03-17] MEDS: levETIRAcetam 500 MG/5 ML INJECTION VIAL IVPB SCH ×2 (10:14→22:45)
--- NOTE | 2018-03-17 10:15 | HP ---
Admitting History and Physical - Primary Care Physician PCP: Marv Harding - Admission History of Present Illness: Pt seen/ examined in icu Chart reviewed Case was discussed with er attending yesterday Per er notes The patient is an 87-year-old male presents to the emergency department via EMS from [facility] with AMS. As per the RI, the patient presents secondary to altered mental status for the past 5 days with failure to thrive. RI reports, the patient at baseline was able to ambulate, feed himself and was able to write. For the past 5 days, the patients been nonambulatory and unable to feed himself. The patient is s/p craniotomy and evacuation of hematoma 02/18/[address] Patrick Nolasco PMHx: HTN, Prostate problems, L. orbital fracture with decreased vision, Gout, Osteopenia, CAD, and hx of umbilical hernia. PSHx: CABG(2004) x4 Stent, Percutaneous endovascular repair of Abdominal Aortic Aneurysm. Bilateral iliac angioplasty (09/2017), Craniotomy and evacuation of hematoma (02/18/2018). Appendectomy, tonsillectomy PCP: Michael Wells MD Neurosurgery: Dr. Patrick Nolasco. Pt known to me from recent Hospitalization. 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 No: AFIB, Aneurysm, Aortic Insufficiency, Aortic Stenosis, CHF, Deep Vein Thrombosis, HI, Mitral Insufficiency, Mitral Stenosis, Murmur, Pulmonary Hypertension Musculoskeletal: Yes: Chronic low back pain (with radiculopathy) Rheumatology: Yes: Gout, Other (Polymyalgia Rheumatica) Endocrine: Yes: Hypothyroidism. No: Laurens's Disease, Archie's Disease, Diabetes Insipidus, Diabetes Mellitus, Hyperparathyroidism, Hyperthyroidism, Osteopenia, SIADH, Other - Past Surgical History Past Surgical History: Yes: Appendectomy, CABG ([facility]), Tonsillectomy. No: None, AAA Repair, AICD, Amputation, Arthrosocopy, AV Fistula/Graft, Bariatric Surgery , Breast Biopsy, Bypass, Carotid Endarterectomy, Cataract Removal, Cholecystectomy, Colectomy, Colonoscopy, Colostomy, Craniotomy, , Cystectomy, Hernia Repair, Hysterectomy, Ileal Conduit, Ileosotomy, Joint Replacement, Kidney Transplant, Laminectomy, Liver Transplant, Mastectomy, Nephrectomy, Oopherectomy, Orchiectomy, Permanent Pacemaker, Prostatectomy, Splenectomy, Stent, Thoracotomy, TURP, Tubal Ligation, Upper Endoscopy, Valve Replacement, Vasectomy, Vein Stripping/Ligation - Advance Directives Advance Directives: Yes: Living Will, Health Care Proxy, DNR, Organ Donor, Tissue Donor, MOLST - Smoking History Smoking history: Never smoked Have you smoked in the past 12 months: No Aproximately how many cigarettes per day: 0 - Alcohol/Substance Use Hx Alcohol Use: Yes (SOCIALLY) Home Medications - Allergies Allergies/Adverse Reactions: Allergies Allergy/AdvReac Type Severity Reaction Status Date / Time No Known Allergies Allergy Verified 03/16/18 12:52 - Home Medications Home Medications: Ambulatory Orders Brimonidine Tartrate/Timolol [Combigan 0.2%-0.5% Eye Drops] 1 drop OD DAILY 01/13 Eluxadoline [Viberzi] 75 mg PO DAILY 10/01/17 Aspirin [ASA -] 81 mg PO DAILY tab.chew 10/07/17 Metoprolol Tartrate [Lopressor -] 25 mg PO BID #60 tablet 10/07/17 Acetaminophen [Tylenol .Regular Strength -] 650 mg PO Q6H PRN #30 tablet Amlodipine Besylate [Norvasc -] 10 mg PO DAILY #30 tablet 02/25/18 Chlorthalidone [Hygroton -] 25 mg PO DAILY #30 tablet 02/25/18 Docusate Sodium [Colace -] 100 mg PO DAILY #60 capsule 02/25/18 Gabapentin [Neurontin -] 100 mg PO TID #90 capsule 02/25/18 Potassium Chloride [K-Dur -] 20 meq PO DAILY #30 tablet.er 02/25/18 levETIRAcetam [Keppra -] 500 mg PO BID #60 tablet 02/25/18 Levothyroxine [Synthroid -] 50 mcg PO DAILY@0600 03/16/18 Review of Systems Findings/Remarks: see [place] Physical Examination Vital Signs: Vital Signs Temperature 98.0 F 03/16/18 19:30 Pulse Rate 77 03/17/18 08:00 Respiratory Rate 18 03/17/18 08:00 Blood Pressure 147/66 03/17/18 08:00 O2 Sat by Pulse Oximetry (%) 100 03/16/18 21:00 Constitutional: Yes: No Distress, Calm Eyes: Yes: PERRL Neck: Yes: Supple, Trachea Midline Cardiovascular: Yes: Regular Rate and Rhythm Respiratory: Yes: CTA Bilaterally Gastrointestinal: Yes: Soft Edema: No Neurological: Yes: Alert Labs: CBC, BMP 03/17/18 05:30 03/17/18 05:30 Imaging - Results Chest X-ray: Report Reviewed Cat Scan: Report Reviewed EKG: Report Reviewed Problem List - Problems (1) HTN (hypertension) Code(s): I10 - ESSENTIAL (PRIMARY) HYPERTENSION (2) Hypothyroid Code(s): E03.9 - HYPOTHYROIDISM, UNSPECIFIED Qualifiers: Hypothyroidism type: other Qualified Code(s): E03.8 - Other specified hypothyroidism (3) S/P craniotomy Code(s): Z98.890 - OTHER SPECIFIED POSTPROCEDURAL STATES (4) Subdural hemorrhage Code(s): I62.00 - NONTRAUMATIC SUBDURAL HEMORRHAGE, UNSPECIFIED (5) Hypokalemia Code(s): E87.6 - HYPOKALEMIA Assessment/Plan Monitor in icu Neuro - surgery to follow Meds -- restart-- order written d/c asa condition gaurded discussed with icu team also currently npo Fix levi will follow cc time 35 min
--- NOTE | 2018-03-17 10:58 | PN ---
Teaching Attending Note Name of Resident: Farhan Armijo ATTENDING PHYSICIAN STATEMENT I saw and evaluated the patient. I reviewed the resident's note and discussed the case with the resident. I agree with the resident's findings and plan as documented. SUBJECTIVE: Pt seen and examined in the ICU. Denies headache, nausea or vomiting. No current complaints. OBJECTIVE: Vital Signs Period Temp Pulse Resp BP Sys/Michel Pulse Ox Last 24 Hr 97.8 F-98.6 F 57-77 13-20 131-168/58-71 99-100 Intake & Output 03/14/18 03/15/18 03/16/18 03/17/18 23:59 23:59 23:59 23:59 Intake Total 100 Balance 100 Weight 90.718 kg Gen: NAD at rest Heart: RRR Lung: decreased breath sounds at the bases Abd: soft, nontender Ext: no edema Neuro: nonfocal CBC, BMP 03/17/18 05:30 03/17/18 05:30 Active Medications Acetaminophen (Tylenol -) 650 mg PO Q6H PRN PRN Reason: FEVER Amlodipine Besylate (Norvasc -) 10 mg PO DAILY [facility] Last Admin: 03/17/18 10:14 Dose: 10 mg Brimonidine Tartrate (Alphagan 0.2% -) 1 drop OD DAILY [facility] Chlorhexidine Gluconate (Hibiclens For Decolonization -) 1 applic TP HS [facility] Chlorthalidone (Hygroton -) 25 mg PO DAILY [facility] Docusate Sodium (Colace -) 100 mg PO DAILY [facility] Potassium Chloride (Potassium Chloride 10 Meq Premix Ivpb -) 10 meq in 100 mls @ 100 mls/hr IVPB Q60M [facility] Stop: 03/17/18 11:14 Last Admin: 03/17/18 10:00 Dose: 100 mls/hr Levetiracetam (Keppra Injection -) 500 mg IVPB BID [facility] Last Admin: 03/17/18 10:14 Dose: 500 mg Levothyroxine Sodium (Synthroid -) 50 mcg PO DAILY@0600 [facility] Metoprolol Tartrate (Lopressor -) 25 mg PO BID [facility] Mupirocin (Bactroban Ointment (For Decolonization) -) 1 applic NS BID [facility] Stop: 03/22/18 21:59 Non-Formulary Medication (Eluxadoline [Viberzi]) 75 mg PO DAILY KRISTY Pantoprazole Sodium (Protonix Iv) 40 mg IVPUSH DAILY KRISTY Timolol Maleate (Timoptic 0.5%) 1 drop OD DAILY KRISTY ASSESSMENT AND PLAN: Acute on Chronic Subdural Hematoma +Troponins likely Demand Ischemia HTN CKD Hypothyroidism - repeat CT head - replete lytes - PO as tolerated - on empiric antiepileptics - mechanical DVT prophylaxis - can monitor on floor if no surgical intervention planned
[2018-03-17] MEDS: PANTOPRAZOLE SODIUM 40 MG VIAL IVPUSH SCH (11:00)
[2018-03-17] MEDS ORDERED: FUROSEMIDE 40 MG/4 ML INJECTABLE VIAL IVPUSH ONE (12:00)
[2018-03-17] MEDS ORDERED: GABAPENTIN 100 MG CAPSULE (FP) PO SCH (14:00)
--- NOTE | 2018-03-17 18:26 | PN ---
Physical Exam: SUBJECTIVE: Patient seen and examined this am and afternoon in icu. Pt resting in bed, not oriented to place or time. Denies cp or sob. Family at bedside. Spoke to Brandy, pt's girlfriend this evening. OBJECTIVE: Vital Signs Period Temp Pulse Resp BP Sys/Michel Pulse Ox Last 24 Hr 98.0 F-98.1 F 58-78 18-20 147-168/58-71 97-100 GENERAL: HEAD: Bandage on head. EYES: Left pupil dilated. ENT: MMM NECK: No JVD LUNGS: Dec BS at bases. HEART: RRR. ABDOMEN: Soft, Nt, ND, No HSM. EXTREMITIES: thin, muscle wasting. NEUROLOGICAL: Confused, strength 4+ throughout. PSYCH: Normal mood, normal affect. SKIN: Laboratory Results - last 24 hr 03/16/18 03/17/18 03/17/18 19:10 05:30 05:30 WBC 7.3 RBC 3.37 L Hgb 10.2 L Hct 27.8 L MCV 82.6 MCH 30.3 MCHC 36.7 H RDW 12.7 Plt Count 283 D MPV 7.3 L Absolute Neuts (auto) 4.7 Neutrophils % 64.9 Lymphocytes % 19.1 D Monocytes % 11.6 H Eosinophils % 4.0 Basophils % 0.4 Nucleated RBC % 0 PT with INR 15.20 H INR 1.35 H PTT (Actin FS) 33.6 Sodium Potassium Chloride Carbon Dioxide Anion Gap BUN Creatinine Creat Clearance w eGFR Random Glucose Calcium Total Bilirubin AST ALT Alkaline Phosphatase Troponin I 0.06 H D Total Protein Albumin 03/17/18 05:30 WBC RBC Hgb Hct MCV MCH MCHC RDW Plt Count MPV Absolute Neuts (auto) Neutrophils % Lymphocytes % Monocytes % Eosinophils % Basophils % Nucleated RBC % PT with INR INR PTT (Actin FS) Sodium 139 Potassium 2.7 L* Chloride 99 Carbon Dioxide 29 Anion Gap 11 BUN 28 H Creatinine 1.6 H Creat Clearance w eGFR 41.09 Random Glucose 81 D Calcium 9.2 Total Bilirubin 0.7 AST 17 ALT 19 D Alkaline Phosphatase 92 Troponin I 0.06 H Total Protein 6.8 Albumin 3.4 Active Medications Generic Name Dose Route Start Last Admin Trade Name Freq PRN Reason Stop Dose Admin Acetaminophen 650 mg 03/17/18 10:07 Tylenol - PO Q6H PRN FEVER Amlodipine Besylate 10 mg 08/20/18 10:00 03/17/18 10:14 Norvasc - PO 10 mg DAILY KRISTY Administration Brimonidine Tartrate 1 drop 03/18/18 10:00 Alphagan 0.2% - OD DAILY KRISTY Chlorhexidine Gluconate 1 applic 03/17/18 22:00 Hibiclens For Decolonization - TP HS KRISTY Chlorthalidone 25 mg 03/18/18 10:00 Hygroton - PO DAILY KRISTY Docusate Sodium 100 mg 03/18/18 10:00 Colace - PO DAILY KRISTY Levetiracetam 500 mg 03/16/18 22:00 03/17/18 10:14 Keppra Injection - IVPB 500 mg BID KRISTY Administration Levothyroxine Sodium 50 mcg 03/18/18 06:00 Synthroid - PO DAILY@0600 KRISTY Metoprolol Tartrate 25 mg 03/17/18 22:00 Lopressor - PO BID [facility] Mupirocin 1 applic 03/17/18 22:00 Bactroban Ointment (For Decolonization) - NS 03/22/18 21:59 BID [facility] Non-Formulary Medication 75 mg 03/18/18 10:00 Eluxadoline [Viberzi] PO DAILY [facility] Pantoprazole Sodium 40 mg 03/17/18 10:00 03/17/18 11:00 Protonix Iv IVPUSH 40 mg DAILY [facility] Administration Timolol Maleate 1 drop 03/18/18 10:00 Timoptic 0.5% OD DAILY [facility] ASSESSMENT/PLAN: 87 y/o M w/PMH HTN, Dementia, HLD, 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 for change in mental status over the last 5 days Neuro: Acute on Chronic Subdural Hematoma -Keppra 500 mg IVPB BID - CT Head W/O Contrast 03/17/18--> Large left subdural hematoma with areas of bright signal which could represent subacute or superimposed recent bleed. Midline shift appears worse as compared to yesterday study. Personally reviewed CT scan with Dr Fontaine this afternoon. - Possible Subdural Evacuation of hematoma with Dr Nolasco tomorrow 03/18/18 --NPO HTN -Hygroton 25 mg PO DAILY -Norvasc 10 mg po daily -Lopressor 25 mg PO Daily --Goal SBP <140 unless signs of hypoperfusion FEN No Fluids Monitor electrolytes NPO After Midnight DVT ppx: Mechanical Dispo Continue to monitor in icu. Visit type - Emergency Visit Emergency Visit: Yes ED Registration Date: 03/16/18 Care time: The patient presented to the Emergency Department on the above date and was hospitalized for further evaluation of their emergent condition. - New Patient This patient is new to me today: Yes Date on this admission: 03/17/18 - Critical Care Critical Care patient: Yes Total Critical Care Time (in minutes): 35 Critical Care Statement: The care of this patient involved high complexity decision making to prevent further life threatening deterioration of the patient 's condition and/or to evaluate & treat vital organ system(s) failure or risk of failure.
[2018-03-17] MEDS: CHLORHEXIDINE GLUCONATE 4% CLEANSER FOR DECOLONIZATION TP SCH (22:45)
[2018-03-17] MEDS: MUPIROCIN 2% TOPICAL OINTMENT FOR DECOLONIZATION NS SCH (22:45)
[2018-03-17] MEDS: METOPROLOL TARTRATE 25 MG TABLET (FP) PO SCH (22:45)
[2018-03-18] MEDS ORDERED: LEVOTHYROXINE NA 50 MCG TABLET (FP) PO SCH (06:00)
[2018-03-18 06:27] LABS: BASO % 0.5 % (0-2.0); EOS % 5.1 % (0-4.5); HEMATOCRIT 28.5 % (35.4-49); HEMOGLOBIN 10.4 GM/dL (11.7-16.9); LYMPH % 18.9 % (8-40); MCH 30.1 pg (25.7-33.7); MCHC 36.5 g/dl (32.0-35.9); MEAN CELL VOLUME 82.3 fl (80-96); MEAN PLT VOLUME 6.8 fl (7.5-11.1); MONO % 11.8 % (3.8-10.2); NEUT % 63.7 % (42.8-82.8); PLATELET COUNT 279 K/MM3 (134-434); RBC 3.47 M/mm3 (4.00-5.60); RDW 12.6 % (11.9-15.9); WHITE BLOOD COUNT 7.4 K/mm3 (4.0-10.0)
[2018-03-18 06:52] LABS: CHLORIDE 100 mmol/L (98-107); SODIUM 141 mmol/L (136-145)
[2018-03-18 07:03] LABS: ALBUMIN 3.2 g/dl (3.4-5.0); ALK PHOS 87 U/L (45-117); ANION GAP 11 (8-16); BILIRUBIN,TOTAL 0.8 mg/dL (0.2-1.0); BLOOD UREA NITROGEN 23 mg/dL (7-18); CALCIUM 9.2 mg/dL (8.5-10.1); CO2 30 mmol/L (21-32); CREATININE 1.4 mg/dL (0.7-1.3); GLUCOSE,RANDOM 76 mg/dL (74-106); MAGNESIUM 1.6 mg/dL (1.8-2.4); PHOSPHOROUS 2.2 mg/dL (2.5-4.9); SGOT/AST 21 U/L (15-37); SGPT/ALT 15 U/L (12-78); TOT PROT 6.4 g/dl (6.4-8.2)
[2018-03-18] MEDS ORDERED: MAGNESIUM SULF 50% (8.12 MEQ/2 ML-1 GM VIAL) IVPB ONE ×2 (07:21→07:22)
[2018-03-18 07:22] LABS: POTASSIUM 2.9 mmol/L (3.5-5.1)
--- NOTE | 2018-03-18 07:30 | PN ---
Progress Note (short form) - Note Progress Note: Pt seen/ examined with CLIENT PROFESSIONAL Jessie in icu Case discussed comfortable Vital Signs Temp 97.4 F L 03/18/18 06:00 Pulse 64 03/18/18 06:00 Resp 16 03/18/18 04:00 BP 154/75 03/18/18 06:00 Pulse Ox 97 03/17/18 21:00 Intake & Output 03/17/18 03/17/18 03/18/18 11:59 23:59 11:59 Intake Total 600 100 Output Total 300 600 Balance 300 -500 Weight 117 lb 14.4 oz Intake: IVPB 600 100 Output: Urine 300 600 Void 300 600 Other: Voiding Method Indwelling Catheter # Unmeasured Voids Void 1 2 Weight Measurement Method Built in [facility] Active Medications Acetaminophen (Tylenol -) 650 mg PO Q6H PRN PRN Reason: FEVER Amlodipine Besylate (Norvasc -) 10 mg PO DAILY [facility] Last Admin: 03/17/18 10:14 Dose: 10 mg Brimonidine Tartrate (Alphagan 0.2% -) 1 drop OD DAILY [facility] Chlorhexidine Gluconate (Hibiclens For Decolonization -) 1 applic TP HS [facility] Last Admin: 03/17/18 22:45 Dose: 1 applic Chlorthalidone (Hygroton -) 25 mg PO DAILY [facility] Docusate Sodium (Colace -) 100 mg PO DAILY [facility] Potassium Chloride (Potassium Chloride 10 Meq Premix Ivpb -) 10 meq in 100 mls @ 100 mls/hr IVPB Q60M [facility] Stop: 03/18/18 10:29 Potassium Phosphate 30 mm/ (Dextrose) 260 mls @ 62.5 mls/hr IVPB ONCE ONE Stop: 03/18/18 11:34 Levetiracetam (Keppra Injection -) 500 mg IVPB BID [facility] Last Admin: 03/17/18 22:45 Dose: 500 mg Levothyroxine Sodium (Synthroid -) 50 mcg PO DAILY@0600 [facility] Last Admin: 03/18/18 06:25 Dose: 50 mcg Magnesium Sulfate (Magnesium Sulfate) 2 gm IVPB ONCE ONE Stop: 03/18/18 07:22 Magnesium Sulfate (Magnesium Sulfate) 2 gm IVPB ONCE ONE Stop: 03/18/18 07:23 Metoprolol Tartrate (Lopressor -) 25 mg PO BID [facility] Last Admin: 03/17/18 22:45 Dose: 25 mg Mupirocin (Bactroban Ointment (For Decolonization) -) 1 applic NS BID [facility] Stop: 03/22/18 21:59 Last Admin: 03/17/18 22:45 Dose: 1 applic Non-Formulary Medication (Eluxadoline [Viberzi]) 75 mg PO DAILY [facility] Pantoprazole Sodium (Protonix Iv) 40 mg IVPUSH DAILY [facility] Last Admin: 03/17/18 11:00 Dose: 40 mg Timolol Maleate (Timoptic 0.5%) 1 drop OD DAILY KRISTY CBC, BMP 03/18/18 05:30 03/18/18 05:30 Physical Exam. N-awake, confused cvs-s1s2 lungs-clear abd-soft,nt LE- no edema A/P Subdural hematoma - acute on chronic- for possible evacuation s/p craniotomy- 01/2018 CAD- h/o CABG DEMENTIA Infrarenal AAA repair-2017 hypokalemia, hypomagnesemia- replace Discussed with icu Resident also will follow Problem List - Problems (1) HTN (hypertension) Code(s): I10 - ESSENTIAL (PRIMARY) HYPERTENSION (2) Hypothyroid Code(s): E03.9 - HYPOTHYROIDISM, UNSPECIFIED Qualifiers: Hypothyroidism type: other Qualified Code(s): E03.8 - Other specified hypothyroidism (3) S/P craniotomy Code(s): Z98.890 - OTHER SPECIFIED POSTPROCEDURAL STATES (4) Subdural hemorrhage Code(s): I62.00 - NONTRAUMATIC SUBDURAL HEMORRHAGE, UNSPECIFIED (5) Hypokalemia Code(s): E87.6 - HYPOKALEMIA
[2018-03-18] MEDS ORDERED: POTASSIUM PHOSPHATE 15 MM in DEXTROSE 5%-WATER - 250 ML IVPB ONE (08:00)
[2018-03-18] MEDS ORDERED: POTASSIUM PHOSPHATE 30 MM in DEXTROSE 5%-WATER - 250 ML IVPB ONE (08:00)
[2018-03-18] MEDS ORDERED: MAGNESIUM SULFATE IN WATER 2 GM/50 ML IVPB IVPB ONE (08:00)
[2018-03-18] MEDS ORDERED: GENTAMICIN SO4 80 MG/2 ML VIAL ONE (08:10)
[2018-03-18] MEDS ORDERED: LIDOCAINE 1%/EPI 1:100000 (20 ML MULTI DOSE VIAL) ONE (08:10)
[2018-03-18] MEDS ORDERED: ROCURONIUM BROMIDE 50 MG/5 ML VIAL ONE (08:42)
[2018-03-18] MEDS ORDERED: PROPOFOL 20 ML ONE (08:42)
[2018-03-18] MEDS ORDERED: ETOMIDATE 20 MG/10 ML AMPUL IVPUSH ONE (08:42)
[2018-03-18] MEDS ORDERED: MIDAZOLAM HCL 2 MG/2 ML SINGLE DOSE VIAL ONE (08:42)
--- NOTE | 2018-03-18 08:55 | PN ---
Progress Note (short form) - Note Progress Note: patient seen and examined in ICU along with dr JONES Alert oriented x1 no distress for possible OR today Vital Signs Temp 99.3 F 03/18/18 07:58 Pulse 74 03/18/18 07:58 Resp 16 03/18/18 07:58 BP 137/71 03/18/18 07:58 Pulse Ox 96 03/18/18 08:01 Intake & Output 03/17/18 03/17/18 03/18/18 11:59 23:59 11:59 Intake Total 600 100 Output Total 300 600 Balance 300 -500 Weight 117 lb 14.4 oz Intake: IVPB 600 100 Output: Urine 300 600 Void 300 600 Other: Voiding Method Indwelling Catheter # Unmeasured Voids Void 1 2 Weight Measurement Method Built in [facility] Active Medications Acetaminophen (Tylenol -) 650 mg PO Q6H PRN PRN Reason: FEVER Amlodipine Besylate (Norvasc -) 10 mg PO DAILY [facility] Last Admin: 03/17/18 10:14 Dose: 10 mg Brimonidine Tartrate (Alphagan 0.2% -) 1 drop OD DAILY [facility] Chlorhexidine Gluconate (Hibiclens For Decolonization -) 1 applic TP HS [facility] Last Admin: 03/17/18 22:45 Dose: 1 applic Chlorthalidone (Hygroton -) 25 mg PO DAILY [facility] Docusate Sodium (Colace -) 100 mg PO DAILY [facility] Potassium Chloride (Potassium Chloride 10 Meq Premix Ivpb -) 10 meq in 100 mls @ 100 mls/hr IVPB Q60M [facility] Stop: 03/18/18 10:29 Potassium Phosphate 15 mm/ (Dextrose) 255 mls @ 63.75 mls/hr IVPB ONCE ONE Stop: 03/18/18 11:59 Magnesium Sulfate (Magnesium Sulf 2 G/50 Ml Bag) 2 gm in 50 mls @ 50 mls/hr IVPB ONCE ONE Stop: 03/18/18 08:59 Last Admin: 03/18/18 07:47 Dose: 50 mls/hr Levetiracetam (Keppra Injection -) 500 mg IVPB BID [facility] Last Admin: 03/17/18 22:45 Dose: 500 mg Levothyroxine Sodium (Synthroid -) 50 mcg PO DAILY@0600 [facility] Last Admin: 03/18/18 06:25 Dose: 50 mcg Metoprolol Tartrate (Lopressor -) 25 mg PO BID [facility] Last Admin: 03/17/18 22:45 Dose: 25 mg Mupirocin (Bactroban Ointment (For Decolonization) -) 1 applic NS BID [facility] Stop: 03/22/18 21:59 Last Admin: 03/17/18 22:45 Dose: 1 applic Non-Formulary Medication (Eluxadoline [Viberzi]) 75 mg PO DAILY [facility] Pantoprazole Sodium (Protonix Iv) 40 mg IVPUSH DAILY [facility] Last Admin: 03/17/18 11:00 Dose: 40 mg Timolol Maleate (Timoptic 0.5%) 1 drop OD DAILY [facility] CBC,CMP WBC 7.4 K/mm3 (4.0-10.0) 03/18/18 05:30 RBC 3.47 M/mm3 (4.00-5.60) L 03/18/18 05:30 Hgb 10.4 GM/dL (11.7-16.9) L 03/18/18 05:30 Hct 28.5 % (35.4-49) L 03/18/18 05:30 MCV 82.3 fl (80-96) 03/18/18 05:30 MCH 30.1 pg (25.7-33.7) 03/18/18 05:30 MCHC 36.5 g/dl (32.0-35.9) H 03/18/18 05:30 RDW 12.6 % (11.9-15.9) 03/18/18 05:30 Plt Count 279 K/MM3 (134-434) 03/18/18 05:30 MPV 6.8 fl (7.5-11.1) L 03/18/18 05:30 Absolute Neuts (auto) 4.8 K/mm3 (1.5-8.0) 03/18/18 05:30 Neutrophils % 63.7 % (42.8-82.8) 03/18/18 05:30 Lymphocytes % 18.9 % (8-40) 03/18/18 05:30 Monocytes % 11.8 % (3.8-10.2) H 03/18/18 05:30 Eosinophils % 5.1 % (0-4.5) H 03/18/18 05:30 Basophils % 0.5 % (0-2.0) 03/18/18 05:30 Nucleated RBC % 0 % (0-0) 03/18/18 05:30 Sodium 141 mmol/L (136-145) 03/18/18 05:30 Potassium 2.9 mmol/L (3.5-5.1) L* 03/18/18 05:30 Chloride 100 mmol/L (98-107) 03/18/18 05:30 Carbon Dioxide 30 mmol/L (21-32) 03/18/18 05:30 Anion Gap 11 (8-16) 03/18/18 05:30 BUN 23 mg/dL (7-18) H 03/18/18 05:30 Creatinine 1.4 mg/dL (0.7-1.3) H 03/18/18 05:30 Creat Clearance w eGFR 47.94 (>60) 03/18/18 05:30 Random Glucose 76 mg/dL (74-106) 03/18/18 05:30 Calcium 9.2 mg/dL (8.5-10.1) 03/18/18 05:30 Phosphorus 2.2 mg/dL (2.5-4.9) L 03/18/18 05:30 Magnesium 1.6 mg/dL (1.8-2.4) L 03/18/18 05:30 Total Bilirubin 0.8 mg/dL (0.2-1.0) 03/18/18 05:30 AST 21 U/L (15-37) D 03/18/18 05:30 ALT 15 U/L (12-78) D 03/18/18 05:30 Alkaline Phosphatase 87 U/L (45-117) 03/18/18 05:30 Creatine Kinase 21 IU/L (39-308) L 03/16/18 13:00 Troponin I 0.06 ng/ml (0.00-0.05) H 03/17/18 05:30 Total Protein 6.4 g/dl (6.4-8.2) 03/18/18 05:30 Albumin 3.2 g/dl (3.4-5.0) L 03/18/18 05:30 N-awake, confused cvs-s1s2 lungs-clear abd-soft,nt LE- no edema A/P Subdural hematoma - acute on chronic- for possible evacuation s/p craniotomy- 01/2018 CAD- h/o CABG DEMENTIA Infrarenal AAA repair-2018 hypokalemia, hypomagnesemia- replace Problem List - Problems (1) Subdural hemorrhage Code(s): I62.00 - NONTRAUMATIC SUBDURAL HEMORRHAGE, UNSPECIFIED (2) CAD (coronary artery disease) Code(s): I25.10 - ATHSCL HEART DISEASE OF [place] CORONARY ARTERY W/O ANG PCTRS Qualifiers: [place] vs. transplanted heart: [place] heart Associated angina: without angina (3) Hypokalemia Code(s): E87.6 - HYPOKALEMIA (4) Hypokalemia Code(s): E87.6 - HYPOKALEMIA
[2018-03-18] MEDS: KCL 10 MEQ IVPB 10 MEQ/100 ML INFUS.BAG IVPB SCH ×3 (08:59→13:00)
[2018-03-18] MEDS ORDERED: THROMBIN (BOVINE) 5,000 UNIT VIAL TP ONE (09:00)
[2018-03-18] MEDS ORDERED: ceFAZolin SODIUM 1 GM VIAL ONE (09:34)
[2018-03-18] MEDS ORDERED: VANCOMYCIN 1,000 MG VIAL (RESTRICTED TO ID ONLY) ONE (09:34)
[2018-03-18] MEDS ORDERED: ceFAZolin SODIUM 1 GM VIAL IVPB ONE (09:39)
[2018-03-18] MEDS ORDERED: VANCOMYCIN 1,000 MG VIAL (RESTRICTED TO ID ONLY) IVPB ONE (09:39)
[2018-03-18] MEDS ORDERED: LIDOCAINE 1%/EPI 1:100000 (50 ML MULTI DOSE VIAL) INF ONE (09:42)
[2018-03-18] MEDS ORDERED: ePHEDrine SULFATE 50 MG/1 ML AMPULE ONE (09:55)
[2018-03-18] MEDS ORDERED: DOCUSATE SODIUM 100 MG CAPSULE (FP) PO SCH (10:00)
[2018-03-18] MEDS ORDERED: CHLORTHALIDONE 25 MG TABLET PO SCH (10:00)
[2018-03-18] MEDS ORDERED: ELUXADOLINE 75 MG PO SCH (10:00)
[2018-03-18] MEDS ORDERED: PATIENT'S OWN MEDICATION (NON-FORMULARY) (Brimonidine Tartrate/Timolol [Combigan 0.2%-0.5% OD SCH (10:00)
[2018-03-18] MEDS ORDERED: NEOSTIGMINE METHYLSULFATE 0.5 MG/ML - 10 ML MDV ONE (10:21)
[2018-03-18] MEDS ORDERED: GLYCOPYRROLATE 0.2 MG/1 ML VIAL ONE (10:30)
[2018-03-18] MEDS ORDERED: ONDANSETRON 4 MG/2 ML VIAL ONE (10:32)
--- NOTE | 2018-03-18 11:48 | PN ---
Teaching Attending Note Name of Resident: Farhan Armijo ATTENDING PHYSICIAN STATEMENT I saw and evaluated the patient. I reviewed the resident's note and discussed the case with the resident. I agree with the resident's findings and plan as documented. SUBJECTIVE: Pt seen and examined in the ICU. s/p michelle hole/hematoma evacuation. Post op CT head read pending but appears to have post op changes. OBJECTIVE: Vital Signs Period Temp Pulse Resp BP Sys/Michel Pulse Ox Last 24 Hr 97 F-99.3 F 64-94 15-85 129-179/67-87 96-99 Intake & Output 03/15/18 03/16/18 03/17/18 03/18/18 23:59 23:59 23:59 23:59 Intake Total 100 600 500 Output Total 300 603 Balance 100 300 -103 Weight 90.718 kg 53.479 kg Gen: somnolent Heart: RRR Lung: decreased breath sounds at the bases Abd: soft, nontender Ext: no edema CBC, BMP 03/18/18 05:30 03/18/18 05:30 Active Medications Acetaminophen (Tylenol -) 650 mg PO Q6H PRN PRN Reason: FEVER Amlodipine Besylate (Norvasc -) 10 mg PO DAILY [facility] Last Admin: 03/17/18 10:14 Dose: 10 mg Brimonidine Tartrate (Alphagan 0.2% -) 1 drop OD DAILY [facility] Chlorhexidine Gluconate (Hibiclens For Decolonization -) 1 applic TP HS [facility] Last Admin: 03/17/18 22:45 Dose: 1 applic Chlorthalidone (Hygroton -) 25 mg PO DAILY [facility] Docusate Sodium (Colace -) 100 mg PO DAILY [facility] Potassium Phosphate 15 mm/ (Dextrose) 255 mls @ 63.75 mls/hr IVPB ONCE ONE Stop: 03/18/18 11:59 Last Admin: 03/18/18 09:00 Dose: 63.75 mls/hr Levetiracetam (Keppra Injection -) 500 mg IVPB BID [facility] Last Admin: 03/17/18 22:45 Dose: 500 mg Levothyroxine Sodium (Synthroid -) 50 mcg PO DAILY@0600 [facility] Last Admin: 03/18/18 06:25 Dose: 50 mcg Metoprolol Tartrate (Lopressor -) 25 mg PO BID [facility] Last Admin: 03/17/18 22:45 Dose: 25 mg Mupirocin (Bactroban Ointment (For Decolonization) -) 1 applic NS BID [facility] Stop: 03/22/18 21:59 Last Admin: 03/17/18 22:45 Dose: 1 applic Non-Formulary Medication (Eluxadoline [Viberzi]) 75 mg PO DAILY [facility] Pantoprazole Sodium (Protonix Iv) 40 mg IVPUSH DAILY [facility] Last Admin: 03/17/18 11:00 Dose: 40 mg Timolol Maleate (Timoptic 0.5%) 1 drop OD DAILY [facility] ASSESSMENT AND PLAN: Acute on Chronic Subdural Hematoma +Troponins likely Demand Ischemia HTN CKD Hypothyroidism - f/u CT head - replete lytes - PO as tolerated - IVF - on empiric antiepileptics - mechanical DVT prophylaxis
[2018-03-18] MEDS: levETIRAcetam 500 MG/5 ML INJECTION VIAL IVPB SCH (12:00)
[2018-03-18] MEDS: PANTOPRAZOLE SODIUM 40 MG VIAL IVPUSH SCH (12:02)
[2018-03-18] MEDS ORDERED: PT OWN MED DRAWER 7, Y5N ONE ×2 (12:18→14:48)
[2018-03-18] MEDS: BRIMONIDINE TARTRATE 0.2% OPHTHALMIC 5 ML BOTTLE OD SCH (12:21)
[2018-03-18] MEDS ORDERED: SODIUM CHLORIDE 1,000 ML IV SCH (12:30)
[2018-03-18] MEDS: MUPIROCIN 2% TOPICAL OINTMENT FOR DECOLONIZATION NS SCH ×2 (14:39→22:00)
[2018-03-18] MEDS: METOPROLOL TARTRATE 25 MG TABLET (FP) PO SCH ×2 (14:42→23:29)
[2018-03-18] MEDS: amLODIPine BESYLATE 10 MG TABLET (FP) PO SCH (14:43)
[2018-03-18] MEDS: TIMOLOL 0.5% OPHTHALMIC SOL 5 ML BOTTLE OD SCH (14:45)
[2018-03-18] MEDS: ACETAMINOPHEN 1000 MG/100 ML VIAL (NON FORMULARY) IVPB PRN (15:50)
[2018-03-18 16:25] LABS: ALBUMIN 3.3 g/dl (3.4-5.0); ANION GAP 11 MMOL/L (8-16); BILIRUBIN,TOTAL 0.5 mg/dL (0.2-1.0); BLOOD UREA NITROGEN 22 mg/dL (7-18); CHLORIDE 98 mmol/L (98-107); CO2 30 mmol/L (21-32); CREATININE 1.5 mg/dL (0.7-1.3); GLUCOSE,RANDOM 88 mg/dL (74-106); POTASSIUM 3.4 mmol/L (3.5-5.1); SGOT/AST 22 U/L (15-37); SGPT/ALT 16 U/L (12-78); SODIUM 139 mmol/L (136-145); TOT PROT 6.5 g/dl (6.4-8.2)
[2018-03-18 16:26] LABS: ALK PHOS 88 U/L (45-117)
--- NOTE | 2018-03-18 17:05 | PN ---
Physical Exam: SUBJECTIVE: Patient seen and examined this am and afternoon (post-op). Pt underwent evacuation of a subdural hematoma this afternoon with Dr Nolasco. Pt now resting in bed. OBJECTIVE: Vital Signs Period Temp Pulse Resp BP Sys/Michel Pulse Ox Last 24 Hr 97 F-99.3 F 64-94 12-85 129-179/67-87 96-100 GENERAL: Obtunded, not oriented to place or time HEAD: Bandage on left parietal region of head. EYES: Left pupil dilated. ENT: MMM NECK: No JVD LUNGS: Dec BS at bases. HEART: RRR. ABDOMEN: Soft, Nt, ND, No HSM. EXTREMITIES: thin, muscle wasting. SKIN: No Rashes or lesions appreciated. Laboratory Results - last 24 hr 03/18/18 03/18/18 03/18/18 05:30 05:30 15:00 WBC 7.4 RBC 3.47 L Hgb 10.4 L Hct 28.5 L MCV 82.3 MCH 30.1 MCHC 36.5 H RDW 12.6 Plt Count 279 MPV 6.8 L Absolute Neuts (auto) 4.8 Neutrophils % 63.7 Lymphocytes % 18.9 Monocytes % 11.8 H Eosinophils % 5.1 H Basophils % 0.5 Nucleated RBC % 0 Sodium 141 139 Potassium 2.9 L* 3.4 L Chloride 100 98 Carbon Dioxide 30 30 Anion Gap 11 11 BUN 23 H 22 H Creatinine 1.4 H 1.5 H Creat Clearance w eGFR 47.94 44.27 Random Glucose 76 88 Calcium 9.2 9.0 Phosphorus 2.2 L Magnesium 1.6 L Total Bilirubin 0.8 0.5 AST 21 D 22 ALT 15 D 16 Alkaline Phosphatase 87 88 Total Protein 6.4 6.5 Albumin 3.2 L 3.3 L Active Medications Generic Name Dose Route Start Last Admin Trade Name Freq PRN Reason Stop Dose Admin Acetaminophen 650 mg 03/17/18 10:07 Tylenol - PO Q6H PRN FEVER Acetaminophen 1,000 mg 03/18/18 15:11 03/18/18 15:50 Ofirmev Injection - IVPB 1,000 mg Q6H PRN Administration PAIN LEVEL 6-10 Amlodipine Besylate 10 mg 03/17/18 10:00 03/18/18 14:43 Norvasc - PO Not Given DAILY [facility] Brimonidine Tartrate 1 drop 03/18/18 10:00 03/18/18 12:21 Alphagan 0.2% - OD 1 drop DAILY [facility] Administration Chlorhexidine Gluconate 1 applic 03/17/18 22:00 03/17/18 22:45 Hibiclens For Decolonization - TP 1 applic HS [facility] Administration Chlorthalidone 25 mg 03/18/18 10:00 03/18/18 14:42 Hygroton - PO Not Given DAILY [facility] Docusate Sodium 100 mg 03/18/18 10:00 03/18/18 14:42 Colace - PO Not Given DAILY [facility] Sodium Chloride 1,000 mls @ 50 mls/hr 03/18/18 12:30 03/18/18 12:28 Normal Saline - IV 03/19/18 12:26 50 mls/hr ASDIR [facility] Administration Levetiracetam 500 mg 03/16/18 22:00 03/18/18 12:00 Keppra Injection - IVPB 500 mg BID [facility] Administration Levothyroxine Sodium 50 mcg 03/18/18 06:00 03/18/18 06:25 Synthroid - PO 50 mcg DAILY@0600 [facility] Administration Metoprolol Tartrate 25 mg 03/17/18 22:00 03/18/18 14:42 Lopressor - PO Not Given BID [facility] Mupirocin 1 applic 03/17/18 22:00 03/18/18 14:39 Bactroban Ointment (For Decolonization) - NS 03/22/18 21:59 1 applic BID [facility] Administration Non-Formulary Medication 75 mg 03/18/18 10:00 Eluxadoline [Viberzi] PO DAILY [facility] Pantoprazole Sodium 40 mg 03/17/18 10:00 03/18/18 12:02 Protonix Iv IVPUSH 40 mg DAILY [facility] Administration Timolol Maleate 1 drop 03/18/18 10:00 03/18/18 14:45 Timoptic 0.5% OD 1 drop DAILY [facility] Administration ASSESSMENT/PLAN: 87 y/o M w/PMH HTN, Dementia, HLD, 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 Midline shift appears worse as compared to yesterday study. Personally reviewed CT scan with Dr Fontaine this afternoon. POD #0 Evacuation of Subdural Hematoma. CT Head s/p Evacuation 03/18---> Status post left parietal craniotomy. Evacuation of left subdural hematoma. most of left subdural hematoma evacuated. Postsurgical pneumocephalus along the left frontal, parietal convexities is noted. HTN -Hygroton 25 mg PO DAILY -Norvasc 10 mg po daily -Lopressor 25 mg PO Daily --Goal SBP <140 unless signs of hypoperfusion FEN NS @ 50 ml/hr Monitor electrolytes NPO DVT ppx: Mechanical Dispo Continue to monitor in icu. Visit type - Emergency Visit Emergency Visit: Yes ED Registration Date: 03/16/18 Care time: The patient presented to the Emergency Department on the above date and was hospitalized for further evaluation of their emergent condition. - New Patient This patient is new to me today: No - Critical Care Critical Care patient: Yes Total Critical Care Time (in minutes): 35 Critical Care Statement: The care of this patient involved high complexity decision making to prevent further life threatening deterioration of the patient 's condition and/or to evaluate & treat vital organ system(s) failure or risk of failure.
[2018-03-18] MEDS ORDERED: LORazepam 2 MG/ML SDV VIAL IVPUSH ONE ×2 (19:39→19:44)
[2018-03-18] MEDS ORDERED: LORazepam 2 MG/ML SDV VIAL ONE (19:41)
[2018-03-18] MEDS ORDERED: levETIRAcetam 500 MG/5 ML INJECTION VIAL IVPB ONE ×3 (19:49→20:43)
--- NOTE | 2018-03-18 20:49 | PN ---
Progress Note (short form) - Note Progress Note: The patient started seizing-face twitching and grimacing that it generalized. The patient was given Ativan 0.5 mg x 4, keppra 500 mg IV ONCE. I called Dr Nolasco-neurosurgery, that recommended continue medical treatment and if seizure doesn't stop in about an hour to consult neurology and let them decide about imaging. Dr Stokes-neurology, recommended stat CT, CMP, additional dose of Keppra 1000mg and continue 1500 mg BID and Dilantin 1 g if that doesn't help. After reviewing Keppra dose based on Cr clearance, I ordered 1000 mg keppra BID. Will follow. Problem List - Problems (1) MALINDA (acute kidney injury) Code(s): N17.9 - ACUTE KIDNEY FAILURE, UNSPECIFIED (2) Aneurysm of infrarenal abdominal aorta Code(s): I71.4 - ABDOMINAL AORTIC ANEURYSM, WITHOUT RUPTURE (3) CAD (coronary artery disease) Code(s): I25.10 - ATHSCL HEART DISEASE OF [place] CORONARY ARTERY W/O ANG PCTRS Qualifiers: [place] vs. transplanted heart: [place] heart Associated angina: without angina (4) HTN (hypertension) Code(s): I10 - ESSENTIAL (PRIMARY) HYPERTENSION (5) S/P craniotomy Code(s): Z98.890 - OTHER SPECIFIED POSTPROCEDURAL STATES
[2018-03-18 21:42] LABS: ALK PHOS 82 U/L (45-117); ANION GAP 9 MMOL/L (8-16); BILIRUBIN,TOTAL 0.5 mg/dL (0.2-1.0); BLOOD UREA NITROGEN 20 mg/dL (7-18); CALCIUM 8.6 mg/dL (8.5-10.1); CHLORIDE 99 mmol/L (98-107); CO2 30 mmol/L (21-32); CREATININE 1.5 mg/dL (0.7-1.3); GLUCOSE,RANDOM 88 mg/dL (74-106); POTASSIUM 3.3 mmol/L (3.5-5.1); SGOT/AST 22 U/L (15-37); SGPT/ALT 15 U/L (12-78); SODIUM 138 mmol/L (136-145); TOT PROT 6.1 g/dl (6.4-8.2)
[2018-03-18] MEDS ORDERED: METOPROLOL TARTRATE 5 MG/5 ML VIAL IVPUSH ONE (23:18)
[2018-03-18] MEDS: CHLORHEXIDINE GLUCONATE 4% CLEANSER FOR DECOLONIZATION TP SCH (23:29)
[2018-03-19 06:24] LABS: HEMATOCRIT 31.9 % (35.4-49); HEMOGLOBIN 11.1 GM/dL (11.7-16.9); MCH 28.8 pg (25.7-33.7); MCHC 34.9 g/dl (32.0-35.9); MEAN CELL VOLUME 82.5 fl (80-96); MEAN PLT VOLUME 6.6 fl (7.5-11.1); PLATELET COUNT 281 K/MM3 (134-434); RBC 3.87 M/mm3 (4.00-5.60); RDW 12.9 % (11.9-15.9); WHITE BLOOD COUNT 11.2 K/mm3 (4.0-10.0)
[2018-03-19 07:04] LABS: CHLORIDE 99 mmol/L (98-107); SODIUM 140 mmol/L (136-145)
[2018-03-19] MEDS ORDERED: PT OWN MED DRAWER 7, Y5N ONE ×3 (07:31→10:13)
[2018-03-19] MEDS ORDERED: SODIUM CHLORIDE 0.9%/KCL 20 MEQ/1,000 ML INFUS.BAG IV SCH ×2 (07:45→16:36)
[2018-03-19] MEDS ORDERED: KCL 10 MEQ IVPB 10 MEQ/100 ML INFUS.BAG IVPB SCH (08:00)
[2018-03-19] MEDS: KCL 10 MEQ IVPB 10 MEQ/100 ML INFUS.BAG IVPB SCH ×2 (08:20→09:18)
[2018-03-19 08:33] LABS: ALBUMIN 3.2 g/dl (3.4-5.0); ALK PHOS 86 U/L (45-117); ANION GAP 12 MMOL/L (8-16); BILIRUBIN,TOTAL 0.8 mg/dL (0.2-1.0); BLOOD UREA NITROGEN 18 mg/dL (7-18); CALCIUM 8.7 mg/dL (8.5-10.1); CO2 29 mmol/L (21-32); CREATININE 1.4 mg/dL (0.7-1.3); GLUCOSE,RANDOM 80 mg/dL (74-106); MAGNESIUM 1.5 mg/dL (1.8-2.4); PHOSPHOROUS 2.5 mg/dL (2.5-4.9); SGOT/AST 20 U/L (15-37); TOT PROT 6.4 g/dl (6.4-8.2)
[2018-03-19] MEDS: levETIRAcetam 500 MG/5 ML INJECTION VIAL IVPB SCH ×3 (08:35→21:34)
[2018-03-19 08:40] LABS: SGPT/ALT 14 U/L (12-78)
[2018-03-19 08:42] LABS: POTASSIUM 2.8 mmol/L (3.5-5.1)
--- NOTE | 2018-03-19 08:50 | CON.NEURO ---
Consult - Past Medical History [employer]ATEGIST: Yes: Dementia Cardio/Vascular: Yes: CAD (CABG- 2004), HTN, Hyperlipdemia, Other (infrarenal AAA 4.7cm (November 2014)). No: AFIB, Aneurysm, Aortic Insufficiency, Aortic Stenosis, CHF, Deep Vein Thrombosis, MD, Mitral Insufficiency, Mitral Stenosis, Murmur, Pulmonary Hypertension Musculoskeletal: Yes: Chronic low back pain (with radiculopathy) Rheumatology: Yes: Gout, Other (Polymyalgia Rheumatica) Endocrine: Yes: Hypothyroidism. No: Towner's Disease, Archie's Disease, Diabetes Insipidus, Diabetes Mellitus, Hyperparathyroidism, Hyperthyroidism, Osteopenia, SIADH, Other - Past Surgical History Past Surgical History: Yes: Appendectomy, CABG ([facility]), Tonsillectomy. No: None, AAA Repair, AICD, Amputation, Arthrosocopy, AV Fistula/Graft, Bariatric Surgery , Breast Biopsy, Bypass, Carotid Endarterectomy, Cataract Removal, Cholecystectomy, Colectomy, Colonoscopy, Colostomy, Craniotomy, , Cystectomy, Hernia Repair, Hysterectomy, Ileal Conduit, Ileosotomy, Joint Replacement, Kidney Transplant, Laminectomy, Liver Transplant, Mastectomy, Nephrectomy, Oopherectomy, Orchiectomy, Permanent Pacemaker, Prostatectomy, Splenectomy, Stent, Thoracotomy, TURP, Tubal Ligation, Upper Endoscopy, Valve Replacement, Vasectomy, Vein Stripping/Ligation - Alcohol/Substance Use Hx Alcohol Use: Yes (SOCIALLY) - Smoking History Smoking history: Never smoked Have you smoked in the past 12 months: No Aproximately how many cigarettes per day: 0 Home Medications - Allergies Allergies/Adverse Reactions: Allergies Allergy/AdvReac Type Severity Reaction Status Date / Time No Known Allergies Allergy Verified 03/16/18 12:52 - Home Medications Home Medications: Ambulatory Orders Brimonidine Tartrate/Timolol [Combigan 0.2%-0.5% Eye Drops] 1 drop OD DAILY 01/13 Eluxadoline [Viberzi] 75 mg PO DAILY 10/01/17 Aspirin [ASA -] 81 mg PO DAILY tab.chew 10/07/17 Metoprolol Tartrate [Lopressor -] 25 mg PO BID #60 tablet 10/07/17 Acetaminophen [Tylenol .Regular Strength -] 650 mg PO Q6H PRN #30 tablet Amlodipine Besylate [Norvasc -] 10 mg PO DAILY #30 tablet 02/25/18 Chlorthalidone [Hygroton -] 25 mg PO DAILY #30 tablet 02/25/18 Docusate Sodium [Colace -] 100 mg PO DAILY #60 capsule 02/25/18 Gabapentin [Neurontin -] 100 mg PO TID #90 capsule 02/25/18 Potassium Chloride [K-Dur -] 20 meq PO DAILY #30 tablet.er 02/25/18 levETIRAcetam [Keppra -] 500 mg PO BID #60 tablet 02/25/18 Levothyroxine [Synthroid -] 50 mcg PO DAILY@0600 03/16/18 Physical Exam-Neuro Vital Signs: Vital Signs Temperature 97.8 F 03/19/18 06:00 Pulse Rate 94 H 03/19/18 06:00 Respiratory Rate 22 03/19/18 06:00 Blood Pressure 144/82 03/19/18 06:00 O2 Sat by Pulse Oximetry (%) 100 03/18/18 12:00 Labs: CBC, BMP 03/19/18 05:30 03/19/18 05:30 INR, PTT INR 1.35 (0.83-1.09) H 03/17/18 05:30 Assessment/Plan CC seizure after subdural hematoma evacuation HPI 87 year old male came from [place] for mental status change. He has history of craniotomy and evacuation of subdural hematoma on February [address] Rad Wilson. Patient under went repeat craniotectomy and hematoma evacuation. FOllowing surgery he has worsening of seizure and was given ativan and keppra was upped. He keep having right side face seizure this morning. He isnot waking up and remain sedated. PMHx: HTN, Prostate problems, L. orbital fracture with decreased vision, Gout, Osteopenia, CAD, and hx of umbilical hernia. PSHx: CABG(2004) x4 Stent, Percutaneous endovascular repair of Abdominal Aortic Aneurysm. Bilateral iliac angioplasty (09/2017), Craniotomy and evacuation of hematoma (02/18/2018). Appendectomy, tonsillectomy FH,SH,ROS reviewed in chart Allergies/Adverse Reactions: Allergies Allergy/AdvReac Type Severity Reaction Status Date / Time No Known Allergies Allergy Verified 03/16/18 12:52 Home Medications: Brimonidine Tartrate/Timolol [Combigan 0.2%-0.5% Eye Drops] 1 drop OD DAILY 01/13 Eluxadoline [Viberzi] 75 mg PO DAILY 10/01/17 Aspirin [ASA -] 81 mg PO DAILY tab.chew 10/07/17 Metoprolol Tartrate [Lopressor -] 25 mg PO BID #60 tablet 10/07/17 Acetaminophen [Tylenol .Regular Strength -] 650 mg PO Q6H PRN #30 tablet Amlodipine Besylate [Norvasc -] 10 mg PO DAILY #30 tablet 02/25/18 Chlorthalidone [Hygroton -] 25 mg PO DAILY #30 tablet 02/25/18 Docusate Sodium [Colace -] 100 mg PO DAILY #60 capsule 02/25/18 Gabapentin [Neurontin -] 100 mg PO TID #90 capsule 02/25/18 Potassium Chloride [K-Dur -] 20 meq PO DAILY #30 tablet.er 02/25/18 levETIRAcetam [Keppra -] 500 mg PO BID #60 tablet 02/25/18 Levothyroxine [Synthroid -] 50 mcg PO DAILY@0600 03/16/18 Neurological Examinatoin Sedated, and not following command, there is right face twitching seen , THere is withdrawal to painful stimuli right sided facial paralyssi seen pupils are small and left side there is eivdence of old surgery ? glaucoma there is hyper reflexia on right side planter is withdrawal on right side repeat ct showed worsening of subdural on right side Assessment- 1. Worsening of subdural , treatment as per Neurosurgery 2. Focal seizure secondary to subdural and history of craniotectomy twice Plan- EEG 2. continue keppra 1500 mg bid and morning dose can be given now and if remain to have focal seizure than add iv phosphenytoin ( load with 1 gm equivalent and continue 100 mg iv tid) plan was discussed with resident team Thanking you os much Jerardo Stokes MD
--- NOTE | 2018-03-19 08:55 | PN ---
Progress Note (short form) - Note Progress Note: ANESTHESIOLOGY POST-OP CHECK 87M s/p craniotomy and evacuation of subdural hematoma under general anesthesia , POD #1. Seizure activity overnight, lethargic. Vital Signs Temperature 97.8 F 03/19/18 06:00 Pulse Rate 94 H 03/19/18 06:00 Respiratory Rate 22 03/19/18 06:00 Blood Pressure 144/82 03/19/18 06:00 O2 Sat by Pulse Oximetry (%) 100 03/18/18 12:00 Active Medications Acetaminophen (Tylenol -) 650 mg PO Q6H PRN PRN Reason: FEVER Acetaminophen (Ofirmev Injection -) 1,000 mg IVPB Q6H PRN PRN Reason: PAIN LEVEL 6-10 Last Admin: 03/18/18 15:50 Dose: 1,000 mg Amlodipine Besylate (Norvasc -) 10 mg PO DAILY [facility] Last Admin: 03/18/18 14:43 Dose: Not Given Brimonidine Tartrate (Alphagan 0.2% -) 1 drop OD DAILY [facility] Last Admin: 03/18/18 12:21 Dose: 1 drop Chlorhexidine Gluconate (Hibiclens For Decolonization -) 1 applic TP HS [facility] Last Admin: 03/18/18 23:29 Dose: 1 applic Chlorthalidone (Hygroton -) 25 mg PO DAILY [facility] Last Admin: 03/18/18 14:42 Dose: Not Given Docusate Sodium (Colace -) 100 mg PO DAILY [facility] Last Admin: 03/18/18 14:42 Dose: Not Given Potassium Chloride/Sodium Chloride (Ns+20 Meq Kcl -) 20 meq in 1,000 mls @ 50 mls/hr IV ASDIR [facility] Last Admin: 03/19/18 08:13 Dose: 50 mls/hr Potassium Chloride (Potassium Chloride 10 Meq Premix Ivpb -) 10 meq in 100 mls @ 100 mls/hr IVPB Q60M [facility] Stop: 03/19/18 09:59 Last Admin: 03/19/18 08:20 Dose: 100 mls/hr Levetiracetam (Keppra Injection -) 1,000 mg IVPB BID [facility] Last Admin: 03/19/18 08:35 Dose: 1,000 mg Levothyroxine Sodium (Synthroid Injection -) 25 mcg IVPUSH 0700 [facility] Metoprolol Tartrate (Lopressor -) 25 mg PO BID [facility] Last Admin: 03/18/18 23:29 Dose: Not Given Mupirocin (Bactroban Ointment (For Decolonization) -) 1 applic NS BID [facility] Stop: 03/22/18 21:59 Last Admin: 03/18/18 22:00 Dose: 1 applic Non-Formulary Medication (Eluxadoline [Viberzi]) 75 mg PO DAILY [facility] Pantoprazole Sodium (Protonix Iv) 40 mg IVPUSH DAILY [facility] Last Admin: 03/18/18 12:02 Dose: 40 mg Timolol Maleate (Timoptic 0.5%) 1 drop OD DAILY [facility] Last Admin: 03/18/18 14:45 Dose: 1 drop Gen: Lethargic No apparent anesthesia complications. Continue management as per ICU team.
[2018-03-19] MEDS ORDERED: LORazepam 2 MG/ML SDV VIAL ONE (09:56)
[2018-03-19] MEDS ORDERED: LORazepam 2 MG/ML SDV VIAL IVPUSH ONE (10:00)
[2018-03-19] MEDS: BRIMONIDINE TARTRATE 0.2% OPHTHALMIC 5 ML BOTTLE OD SCH (10:08)
[2018-03-19] MEDS: PANTOPRAZOLE SODIUM 40 MG VIAL IVPUSH SCH (10:08)
[2018-03-19] MEDS: TIMOLOL 0.5% OPHTHALMIC SOL 5 ML BOTTLE OD SCH (10:08)
[2018-03-19] MEDS: MUPIROCIN 2% TOPICAL OINTMENT FOR DECOLONIZATION NS SCH ×2 (10:10→21:34)
[2018-03-19] MEDS: ACETAMINOPHEN 1000 MG/100 ML VIAL (NON FORMULARY) IVPB PRN (11:52)
--- NOTE | 2018-03-19 11:53 | PN ---
Teaching Attending Note Name of Resident: Farhan Armijo ATTENDING PHYSICIAN STATEMENT I saw and evaluated the patient. I reviewed the resident's note and discussed the case with the resident. I agree with the resident's findings and plan as documented. SUBJECTIVE: Pt seen and examined in the ICU. More lethargic today. Noted to have focal seizure activity overnight and this AM. Repeat CT head showing reaccumulation of subdural hematoma. Febrile this AM. OBJECTIVE: Vital Signs Period Temp Pulse Resp BP Sys/Michel Pulse Ox Last 24 Hr 97.6 F-101.5 F 58-108 12- 132-160/60-87 95-100 Intake & Output 03/16/18 03/17/18 03/18/18 03/19/18 23:59 23:59 23:59 23:59 Intake Total 474 922 5581 500 Output Total 300 606 Balance 002 860 1165 500 Weight 90.718 kg 53.07 kg 50 kg Gen: lethargic, mildly tachypneic at rest Heart: tachycardic, regular Lung: scattered rhonchi Abd: soft, nontender Ext: no edema CBC, BMP 03/19/18 05:30 03/19/18 05:30 Active Medications Acetaminophen (Tylenol -) 650 mg PO Q6H PRN PRN Reason: FEVER Acetaminophen (Ofirmev Injection -) 1,000 mg IVPB Q6H PRN PRN Reason: PAIN LEVEL 6-10 Last Admin: 03/19/18 11:52 Dose: 1,000 mg Amlodipine Besylate (Norvasc -) 10 mg PO DAILY ON LICENSE OF [facility] Last Admin: 03/18/18 14:43 Dose: Not Given Brimonidine Tartrate (Alphagan 0.2% -) 1 drop OD DAILY ON [facility] OF [facility] Last Admin: 03/19/18 10:08 Dose: 1 drop Chlorhexidine Gluconate (Hibiclens For Decolonization -) 1 applic TP HS ON LICENSE OF [facility] Last Admin: 03/18/18 23:29 Dose: 1 applic Chlorthalidone (Hygroton -) 25 mg PO DAILY ON [facility] Last Admin: 03/18/18 14:42 Dose: Not Given Docusate Sodium (Colace -) 100 mg PO DAILY ON [facility] OF [facility] Last Admin: 03/18/18 14:42 Dose: Not Given Potassium Chloride/Sodium Chloride (Ns+20 Meq Kcl -) 20 meq in 1,000 mls @ 50 mls/hr IV ASDIR ON LICENSE OF [facility] Last Admin: 03/19/18 08:13 Dose: 50 mls/hr Levetiracetam (Keppra Injection -) 1,000 mg IVPB BID ON LICENSE OF [facility] Last Admin: 03/19/18 10:04 Dose: Not Given Levothyroxine Sodium (Synthroid Injection -) 25 mcg IVPUSH 0700 ON [facility] OF [facility] Metoprolol Tartrate (Lopressor -) 25 mg PO BID ON [facility] OF [facility] Last Admin: 03/18/18 23:29 Dose: Not Given Mupirocin (Bactroban Ointment (For Decolonization) -) 1 applic NS BID ON [facility] OF [facility] Stop: 03/22/18 21:59 Last Admin: 03/19/18 10:10 Dose: 1 applic Non-Formulary Medication (Eluxadoline [Viberzi]) 75 mg PO DAILY ON [facility] OF [facility] Pantoprazole Sodium (Protonix Iv) 40 mg IVPUSH DAILY ON [facility] OF [facility] Last Admin: 03/19/18 10:08 Dose: 40 mg Timolol Maleate (Timoptic 0.5%) 1 drop OD DAILY ON [facility] OF [facility] Last Admin: 03/19/18 10:08 Dose: 1 drop ASSESSMENT AND PLAN: Acute on Chronic Subdural Hematoma s/p [place]/Evacuation of Hematoma +Troponins likely Demand Ischemia Acute Kidney Injury HTN CKD Hypothyroidism - send cultures - check CXR - may need intubation for airway protection - replete lytes - NPO - IVF - monitor urine output, creatinine - continue antiepileptics per neuro - mechanical DVT prophylaxis - continue ICU monitoring critical care time spent in reviewing chart, evaluating patient and formulating plan 35 min
--- NOTE | 2018-03-19 13:52 | PN ---
Progress Note (short form) - Note Progress Note: patient seen this am lethargic , had seizures last night s/p craniotomy poorly responsive ?facial twitching Vital Signs Period Temp Pulse Resp BP Sys/Michel Pulse Ox Last 24 Hr 97.8 F-101.5 F 58-108 15-26 139-160/60-87 95 Active Medications Acetaminophen (Tylenol -) 650 mg PO Q6H PRN PRN Reason: FEVER Acetaminophen (Ofirmev Injection -) 1,000 mg IVPB Q6H PRN PRN Reason: PAIN LEVEL 6-10 Last Admin: 03/19/18 11:52 Dose: 1,000 mg Amlodipine Besylate (Norvasc -) 10 mg PO DAILY [facility] Last Admin: 03/18/18 14:43 Dose: Not Given Brimonidine Tartrate (Alphagan 0.2% -) 1 drop OD DAILY [facility] Last Admin: 03/19/18 10:08 Dose: 1 drop Chlorhexidine Gluconate (Hibiclens For Decolonization -) 1 applic TP HS [facility] Last Admin: 03/18/18 23:29 Dose: 1 applic Chlorthalidone (Hygroton -) 25 mg PO DAILY [facility] Last Admin: 03/18/18 14:42 Dose: Not Given Docusate Sodium (Colace -) 100 mg PO DAILY [facility] Last Admin: 03/18/18 14:42 Dose: Not Given Potassium Chloride/Sodium Chloride (Ns+20 Meq Kcl -) 20 meq in 1,000 mls @ 50 mls/hr IV ASDIR [facility] Last Admin: 03/19/18 08:13 Dose: 50 mls/hr Levetiracetam (Keppra Injection -) 1,000 mg IVPB BID [facility] Last Admin: 03/19/18 10:04 Dose: Not Given Levothyroxine Sodium (Synthroid Injection -) 25 mcg IVPUSH 0700 [facility] Metoprolol Tartrate (Lopressor -) 25 mg PO BID [facility] Last Admin: 03/18/18 23:29 Dose: Not Given Mupirocin (Bactroban Ointment (For Decolonization) -) 1 applic NS BID [facility] Stop: 03/22/18 21:59 Last Admin: 03/19/18 10:10 Dose: 1 applic Non-Formulary Medication (Eluxadoline [Viberzi]) 75 mg PO DAILY [facility] Pantoprazole Sodium (Protonix Iv) 40 mg IVPUSH DAILY [facility] Last Admin: 03/19/18 10:08 Dose: 40 mg Timolol Maleate (Timoptic 0.5%) 1 drop OD DAILY [facility] Last Admin: 03/19/18 10:08 Dose: 1 drop CBC,CMP WBC 11.2 K/mm3 (4.0-10.0) H 03/19/18 05:30 RBC 3.87 M/mm3 (4.00-5.60) L 03/19/18 05:30 Hgb 11.1 GM/dL (11.7-16.9) L 03/19/18 05:30 Hct 31.9 % (35.4-49) L 03/19/18 05:30 MCV 82.5 fl (80-96) 03/19/18 05:30 MCH 28.8 pg (25.7-33.7) 03/19/18 05:30 MCHC 34.9 g/dl (32.0-35.9) 03/19/18 05:30 RDW 12.9 % (11.9-15.9) 03/19/18 05:30 Plt Count 281 K/MM3 (134-434) 03/19/18 05:30 MPV 6.6 fl (7.5-11.1) L 03/19/18 05:30 Absolute Neuts (auto) 4.8 K/mm3 (1.5-8.0) 03/18/18 05:30 Neutrophils % 63.7 % (42.8-82.8) 03/18/18 05:30 Lymphocytes % 18.9 % (8-40) 03/18/18 05:30 Monocytes % 11.8 % (3.8-10.2) H 03/18/18 05:30 Eosinophils % 5.1 % (0-4.5) H 03/18/18 05:30 Basophils % 0.5 % (0-2.0) 03/18/18 05:30 Nucleated RBC % 0 % (0-0) 03/18/18 05:30 Sodium 140 mmol/L (136-145) 03/19/18 05:30 Potassium 2.8 mmol/L (3.5-5.1) L* 03/19/18 05:30 Chloride 99 mmol/L (98-107) 03/19/18 05:30 Carbon Dioxide 29 mmol/L (21-32) 03/19/18 05:30 Anion Gap 12 MMOL/L (8-16) 03/19/18 05:30 BUN 18 mg/dL (7-18) 03/19/18 05:30 Creatinine 1.4 mg/dL (0.7-1.3) H 03/19/18 05:30 Creat Clearance w eGFR 47.94 (>60) 03/19/18 05:30 Random Glucose 80 mg/dL (74-106) 03/19/18 05:30 Calcium 8.7 mg/dL (8.5-10.1) 03/19/18 05:30 Phosphorus 2.5 mg/dL (2.5-4.9) 03/19/18 05:30 Magnesium 1.5 mg/dL (1.8-2.4) L 03/19/18 05:30 Total Bilirubin 0.8 mg/dL (0.2-1.0) 03/19/18 05:30 AST 20 U/L (15-37) 03/19/18 05:30 ALT 14 U/L (12-78) 03/19/18 05:30 Alkaline Phosphatase 86 U/L (45-117) 03/19/18 05:30 Creatine Kinase 21 IU/L (39-308) L 03/16/18 13:00 Troponin I 0.06 ng/ml (0.00-0.05) H 03/17/18 05:30 Total Protein 6.4 g/dl (6.4-8.2) 03/19/18 05:30 Albumin 3.2 g/dl (3.4-5.0) L 03/19/18 05:30 PHYSICAL EXAM Lethargic, facial twitching, poorly responsive cvs-s1s2 lungs-scattered rhonchi abd-soft,nt, nd LE- no edema A/P Subdural hematoma - acute on chronic- s/p evacuation post craniotomy seizures- neurology consult antiepileptics s/p craniotomy- 01/2018 CAD- h/o CABG DEMENTIA Infrarenal AAA repair-2017 monitor lytes discussed with dr woodson Problem List - Problems (1) Subdural hemorrhage Code(s): I62.00 - NONTRAUMATIC SUBDURAL HEMORRHAGE, UNSPECIFIED (2) CAD (coronary artery disease) Code(s): I25.10 - ATHSCL HEART DISEASE OF [place] CORONARY ARTERY W/O ANG PCTRS Qualifiers: [place] vs. transplanted heart: [place] heart Associated angina: without angina (3) Hypokalemia Code(s): E87.6 - HYPOKALEMIA (4) Hypokalemia Code(s): E87.6 - HYPOKALEMIA Problem List - Problems (1) Subdural hemorrhage Code(s): I62.00 - NONTRAUMATIC SUBDURAL HEMORRHAGE, UNSPECIFIED (2) CAD (coronary artery disease) Code(s): I25.10 - ATHSCL HEART DISEASE OF [place] CORONARY ARTERY W/O ANG PCTRS Qualifiers: [place] vs. transplanted heart: [place] heart Associated angina: without angina (3) Hypokalemia Code(s): E87.6 - HYPOKALEMIA (4) Hypokalemia Code(s): E87.6 - HYPOKALEMIA (5) Focal seizures Code(s): R56.9 - UNSPECIFIED CONVULSIONS (6) History of craniotomy Code(s): Z98.890 - OTHER SPECIFIED POSTPROCEDURAL STATES (7) S/P craniotomy Code(s): Z98.890 - OTHER SPECIFIED POSTPROCEDURAL STATES
[2018-03-19] MEDS ORDERED: SUCCINYLCHOLINE CHLORIDE 200 MG/10 ML VIAL ONE (14:21)
[2018-03-19] MEDS ORDERED: PROPOFOL 20 ML ONE (14:21)
[2018-03-19] MEDS ORDERED: LIDOCAINE HCL 2% 100 MG/5 ML DISP.SYRIN ONE (14:40)
[2018-03-19] MEDS ORDERED: PROPOFOL 200 MG/20 ML VIAL IVPUSH ONE (15:17)
[2018-03-19] MEDS ORDERED: LIDOCAINE HCL 2% 100 MG/5 ML DISP.SYRIN IVPUSH ONE (15:17)
[2018-03-19] MEDS ORDERED: SUCCINYLCHOLINE CHLORIDE 200 MG/10 ML VIAL IVPUSH ONE (15:17)
--- NOTE | 2018-03-19 15:26 | PROC ---
<Noam Gallego - Last Filed: 03/19/18 15:27> Intubation - Intubation Reason for Intubation: Respiratory Failure Time of Intubation: 03:10 Intubation Method: orotracheal Blade used: Mac (3) Tube Size (cm): 8.0 Tube position confirmed by: CO2 detector, Chest x-ray, Breath sounds Breath Sounds after Intubation: equal Post Intubation Xray: Yes Remarks: Pt sedated with propofol 50 mcg IV, paralyzed with succinylcholine 50 mg IV, and given lidocaine 80 mg IV. Pt then intubated with Mac 3 blade via rapid sequence intubation; grade 1 view, intubated with one pass with 8 Fr ETT, and stylet removed. Placement confirmed with CO2 colometric indicator, audible b/l breath sounds, and confirmation of ETT tip with CXR. Intubation performed under direction supervision of Dr. Anderson. <Gallo Anderson MD - Last Filed: 03/19/18 15:32> Procedure Note Procedure: I supervised and was present during the entire procedure. Gallo Anderson MD
[2018-03-19] MEDS: LEVOTHYROXINE SODIUM 100 MCG VIAL IVPUSH SCH (15:28)
[2018-03-19] MEDS: MIDAZOLAM 100 MG in SODIUM CHLORIDE 100 ML IVPB SCH (15:52)
[2018-03-19 16:26] LABS: ARTERIAL BLD GAS O2 SATURATION 95.8 % (90-98.9); ARTERIAL BLOOD GAS BASE EXCESS 1.5 meq/l (-2-2); ARTERIAL BLOOD GAS PCO2 34.2 mmHg (35-45); ARTERIAL BLOOD GAS pH 7.47 (7.35-7.45)
[2018-03-19 16:28] LABS: ALLENS TEST POSITIVE
[2018-03-19] MEDS ORDERED: PIPERACILLIN/TAZOB 3.375 GM 3.375 GM in DEXTROSE 5%-WATER - 50 ML IVPB ONE (17:00)
--- NOTE | 2018-03-19 17:22 | PN ---
Physical Exam: SUBJECTIVE: Patient seen and examined this am and afternoon in icu. Pt resting in bed s/p evacuation of subdural hematoma pod #1. Unable to arouse patient, non -responsive. Seizure activity overnight. Intubated this afternoon by Dr Noam Gallego. Brandy, girlfriend at bedside. OBJECTIVE: Vital Signs Period Temp Pulse Resp BP Sys/Michel Pulse Ox Last 24 Hr 97.8 F-101.5 F 58-108 15-26 113-160/57-87 95-95 GENERAL: Nonresponsive HEAD: Bandage on left parietal region of head. EYES: Left pupil dilated. ENT: MMM NECK: No JVD LUNGS: Dec BS at bases. Tachypneic HEART: RRR. ABDOMEN: Soft, Nt, ND, No HSM. EXTREMITIES: thin, muscle wasting. SKIN: No Rashes or lesions appreciated. Laboratory Results - last 24 hr 03/18/18 03/19/18 03/19/18 20:50 05:30 05:30 WBC 11.2 H RBC 3.87 L Hgb 11.1 L Hct 31.9 L MCV 82.5 MCH 28.8 MCHC 34.9 RDW 12.9 Plt Count 281 MPV 6.6 L Anticoagulation Therapy Puncture Site ABG pH ABG pCO2 at Pt Temp ABG pO2 at Pt Temp ABG HCO3 ABG O2 Sat (Measured) ABG O2 Content ABG Base Excess Ugo Test O2 Delivery Device Oxygen Flow Rate Vent Mode Vent Rate Mechanical Rate PEEP Pressure Support Vent Sodium 138 140 Potassium 3.3 L 2.8 L* Chloride 99 99 Carbon Dioxide 30 29 Anion Gap 9 12 BUN 20 H 18 Creatinine 1.5 H 1.4 H Creat Clearance w eGFR 44.27 47.94 Random Glucose 88 80 Calcium 8.6 8.7 Phosphorus 2.5 Magnesium 1.5 L Total Bilirubin 0.5 0.8 AST 22 20 ALT 15 14 Alkaline Phosphatase 82 86 Total Protein 6.1 L 6.4 Albumin 3.0 L 3.2 L 03/19/18 16:10 WBC RBC Hgb Hct MCV MCH MCHC RDW Plt Count MPV Anticoagulation Therapy No Result Required. Puncture Site Left radial ABG pH 7.47 H ABG pCO2 at Pt Temp 34.2 L ABG pO2 at Pt Temp 72.0 ABG HCO3 24.5 ABG O2 Sat (Measured) 95.8 ABG O2 Content 13.7 L ABG Base Excess 1.5 Ugo Test Positive O2 Delivery Device Other Oxygen Flow Rate 60% Vent Mode A/c Vent Rate 16 Mechanical Rate No Result Required. PEEP 5.0 Pressure Support Vent 400 Sodium Potassium Chloride Carbon Dioxide Anion Gap BUN Creatinine Creat Clearance w eGFR Random Glucose Calcium Phosphorus Magnesium Total Bilirubin AST ALT Alkaline Phosphatase Total Protein Albumin Active Medications Generic Name Dose Route Start Last Admin Trade Name Freq PRN Reason Stop Dose Admin Acetaminophen 1,000 mg 03/18/18 15:11 03/19/18 11:52 Ofirmev Injection - IVPB 1,000 mg Q6H PRN Administration PAIN LEVEL 6-10 Brimonidine Tartrate 1 drop 03/18/18 10:00 03/19/18 10:08 Alphagan 0.2% - OD 1 drop DAILY KRISYT Administration Chlorhexidine Gluconate 1 applic 03/17/18 22:00 03/18/18 23:29 Hibiclens For Decolonization - TP 1 applic HS [facility]RISTY Administration Chlorhexidine Gluconate 15 ml 03/19/18 22:00 Peridex - MM BID [facility] Docusate Sodium 100 mg 03/18/18 10:00 03/18/18 14:42 Colace - PO Not Given DAILY [facility] Midazolam HCl 100 mg/ Sodium 100 mls @ 2 mls/hr 03/19/18 15:30 03/19/18 15:52 Chloride IVPB 2 mg/hr TITR [facility] 2 mls/hr Administration Protocol 2 MG/HR Piperacillin Sod/Tazobactam 50 mls @ 100 mls/hr 03/19/18 17:00 Sod 3.375 gm/ Dextrose IVPB 03/19/18 17:29 ONCE ONE Protocol Potassium Chloride/Sodium Chloride 20 meq in 1,000 mls @ 75 mls/hr 03/19/18 16 :36 Ns+20 Meq Kcl - IV ASDIR [facility] Levetiracetam 1,000 mg 03/19/18 10:00 03/19/18 10:04 Keppra Injection - IVPB Not Given BID [facility] Levothyroxine Sodium 25 mcg 03/19/18 07:45 03/19/18 15:28 Synthroid Injection - IVPUSH 25 mcg 0700 [facility] Administration Metoprolol Tartrate 25 mg 03/17/18 22:00 03/18/18 23:29 Lopressor - PO Not Given BID [facility] Mupirocin 1 applic 03/17/18 22:00 03/19/18 10:10 Bactroban Ointment (For Decolonization) - NS 03/22/18 21:59 1 applic BID [facility] Administration Non-Formulary Medication 75 mg 03/18/18 10:00 Eluxadoline [Viberzi] PO DAILY [facility] Pantoprazole Sodium 40 mg 03/17/18 10:00 03/19/18 10:08 Protonix Iv IVPUSH 40 mg DAILY [facility] Administration Timolol Maleate 1 drop 03/18/18 10:00 03/19/18 10:08 Timoptic 0.5% OD 1 drop DAILY [facility] Administration ASSESSMENT/PLAN: 87 y/o M w/PMH HTN, Dementia, HLD, 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 s/p evacuation of subdural hematoma w/ craniectomy (d/c'd 02/25/18) presents to the ER from [facility] for change in mental status over the last 5 days Intubated this afternoon by Dr Noam Gallego -Midazolam 100 mls @ 2 mls/hr IVPB Neuro: Acute on Chronic Subdural Hematoma -Keppra 500 mg IVPB BID - CT Head W/O Contrast 03/17/18--> Large left subdural hematoma with areas of bright signal which could represent subacute or superimposed recent bleed. Midline shift appears worse as compared to yesterday study. Personally reviewed CT scan with Dr Fontaine this afternoon. POD #1 Evacuation of Subdural Hematoma. CT Head s/p Evacuation 03/18---> Status post left parietal craniotomy. Evacuation of left subdural hematoma. most of left subdural hematoma evacuated. Postsurgical pneumocephalus along the left frontal, parietal convexities is noted. CT Head 03/18--> shift of midline structures increased to 9 mm with new interval acute/subacute subdural hemorrhage in left posterior frontal/parietal region. -Keppra 1,000 mg BID IVPB HTN -Lopressor 25 mg PO Daily -Goal SBP <140 unless signs of hypoperfusion FEN No Fluids Monitor electrolytes NPO DVT ppx: Mechanical Dispo Continue to monitor in icu. Visit type - Emergency Visit Emergency Visit: Yes ED Registration Date: 03/16/18 Care time: The patient presented to the Emergency Department on the above date and was hospitalized for further evaluation of their emergent condition. - New Patient This patient is new to me today: No - Critical Care Critical Care patient: Yes Total Critical Care Time (in minutes): 35 Critical Care Statement: The care of this patient involved high complexity decision making to prevent further life threatening deterioration of the patient 's condition and/or to evaluate & treat vital organ system(s) failure or risk of failure.
[2018-03-19] MEDS ORDERED: DEXTROSE 5%-WATER - 100 ML IVPB ONE (17:25)
[2018-03-19] MEDS ORDERED: PIPERACILLIN/TAZOBACTAM 3.375 GM VIAL IVPB ONE (17:25)
[2018-03-19 20:37] LABS: ANION GAP 14 MMOL/L (8-16); BLOOD UREA NITROGEN 20 mg/dL (7-18); CALCIUM 8.6 mg/dL (8.5-10.1); CHLORIDE 101 mmol/L (98-107); CO2 25 mmol/L (21-32); CREATININE 1.7 mg/dL (0.7-1.3); GLUCOSE,RANDOM 80 mg/dL (74-106); POTASSIUM 3.1 mmol/L (3.5-5.1); SODIUM 140 mmol/L (136-145)
[2018-03-19] MEDS: CHLORHEXIDINE GLUCONATE 0.12% 15ML CUP MM SCH (21:34)
[2018-03-19] MEDS: CHLORHEXIDINE GLUCONATE 4% CLEANSER FOR DECOLONIZATION TP SCH (21:34)
[2018-03-20] MEDS ORDERED: PT OWN MED DRAWER 7, Y5N ONE ×2 (06:35→08:52)
[2018-03-20 06:46] LABS: HEMATOCRIT 25.9 % (35.4-49); MCH 29.1 pg (25.7-33.7); MCHC 34.7 g/dl (32.0-35.9); MEAN PLT VOLUME 7.1 fl (7.5-11.1); PLATELET COUNT 258 K/MM3 (134-434); RBC 3.09 M/mm3 (4.00-5.60); RDW 12.8 % (11.9-15.9)
[2018-03-20] MEDS: LEVOTHYROXINE SODIUM 100 MCG VIAL IVPUSH SCH (07:15)
[2018-03-20 07:24] LABS: CHLORIDE 102 mmol/L (98-107); SODIUM 143 mmol/L (136-145)
[2018-03-20 07:31] LABS: ALBUMIN 2.6 g/dl (3.4-5.0); ALK PHOS 79 U/L (45-117); ANION GAP 15 MMOL/L (8-16); BILIRUBIN,TOTAL 0.8 mg/dL (0.2-1.0); BLOOD UREA NITROGEN 22 mg/dL (7-18); CALCIUM 8.2 mg/dL (8.5-10.1); CO2 26 mmol/L (21-32); CREATININE 1.8 mg/dL (0.7-1.3); GLUCOSE,RANDOM 70 mg/dL (74-106); MAGNESIUM 1.5 mg/dL (1.8-2.4); PHOSPHOROUS 2.8 mg/dL (2.5-4.9); SGOT/AST 20 U/L (15-37); SGPT/ALT 9 U/L (12-78); TOT PROT 5.5 g/dl (6.4-8.2)
[2018-03-20 07:34] LABS: POTASSIUM 2.9 mmol/L (3.5-5.1)
[2018-03-20] MEDS ORDERED: MAGNESIUM SULF 50% (8.12 MEQ/2 ML-1 GM VIAL) IVPB ONE (08:15)
[2018-03-20] MEDS ORDERED: METOPROLOL TARTRATE 5 MG/5 ML VIAL IVPUSH ONE (08:30)
[2018-03-20] MEDS ORDERED: PIPERACILLIN/TAZOB 3.375 GM 3.375 GM in DEXTROSE 5%-WATER - 50 ML IVPB ONE (08:30)
[2018-03-20] MEDS ORDERED: POTASSIUM CHLORIDE ORAL LIQUID 20 MEQ/15 ML PO ONE (08:30)
[2018-03-20] MEDS ORDERED: DEXTROSE 5%-WATER - 50 ML IVPB ONE ×2 (08:53→17:52)
[2018-03-20] MEDS ORDERED: PIPERACILLIN/TAZOBACTAM 3.375 GM VIAL IVPB ONE ×2 (08:53→17:52)
[2018-03-20] MEDS: KCL 10 MEQ IVPB 10 MEQ/100 ML INFUS.BAG IVPB SCH ×3 (09:00→12:52)
[2018-03-20] MEDS: PANTOPRAZOLE SODIUM 40 MG VIAL IVPUSH SCH (09:42)
[2018-03-20] MEDS: CHLORHEXIDINE GLUCONATE 0.12% 15ML CUP MM SCH ×2 (09:42→21:23)
[2018-03-20] MEDS: BRIMONIDINE TARTRATE 0.2% OPHTHALMIC 5 ML BOTTLE OD SCH (09:43)
[2018-03-20] MEDS: MUPIROCIN 2% TOPICAL OINTMENT FOR DECOLONIZATION NS SCH ×2 (09:43→21:22)
[2018-03-20] MEDS: TIMOLOL 0.5% OPHTHALMIC SOL 5 ML BOTTLE OD SCH (09:43)
[2018-03-20] MEDS: levETIRAcetam 500 MG/5 ML INJECTION VIAL IVPB SCH ×2 (09:46→21:22)
--- NOTE | 2018-03-20 09:54 | PN ---
Progress Note (short form) - Note Progress Note: ID consult dictated imp/reccd 87 yo man admitted for lethargy 03/16 recent cva with hematoma evacuation 02/18, now with recurrent accumulation of subdural s/p burrhole and drainage of hematoma 03/18- yesterday with focal seizures, increased lethargy and fever intubated 03/19 for airway protection now with new RLL infiltrate no diarrhea HAP recurrent subdural hematoma seizures malinda/ckd electrolyte abnl cultures pending vancomycin one dose continue zosyn adjusted for malinda/ckd f/u cultures management of recurrent subdural per NS d/w ICU service over 40 minutes spent in the care of this critically ill ICU patient Problem List - Problems (1) Pneumonia Code(s): J18.9 - PNEUMONIA, UNSPECIFIED ORGANISM (2) Subdural hemorrhage Code(s): I62.00 - NONTRAUMATIC SUBDURAL HEMORRHAGE, UNSPECIFIED (3) Focal seizures Code(s): R56.9 - UNSPECIFIED CONVULSIONS (4) MALINDA (acute kidney injury) Code(s): N17.9 - ACUTE KIDNEY FAILURE, UNSPECIFIED (5) Electrolyte abnormality Code(s): E87.8 - OTH DISORDERS OF ELECTROLYTE AND FLUID BALANCE, NEC
--- NOTE | 2018-03-20 10:40 | PN ---
Progress Note (short form) - Note Progress Note: Pt seen/ examined in icu Intubated/ sedated Vital Signs Temp 100.5 F H 03/20/18 06:00 Pulse 115 H 03/20/18 09:45 Resp 19 03/20/18 10:38 BP 120/55 03/20/18 09:45 Pulse Ox 95 03/20/18 08:19 Intake & Output 03/19/18 03/19/18 03/20/18 11:59 23:59 11:59 Intake Total 500 1308 770 Output Total 800 100 Balance 500 508 670 Weight 110 lb 3.698 oz 50 lb 11.2 oz Intake: IV 500 652 770 NS+20 MEQ KCL - 20 meq In 650 750 1,000 ml @ 75 mls/hr IV ASDIR KRIST[facility] Rx#:[id number] Normal Saline - 1,000 ml 500 @ 50 mls/hr IV ASDIR [facility] Rx#:[id number] Versed - 100 mg In Normal 2 20 Saline - 100 ml @ 2 MG/ HR 2 mls/hr IVPB TITR K[facility] Rx#:[id number] IVPB 450 Platelets 206 Output: Urine 800 100 Void 800 100 Other: Voiding Method Indwelling Catheter Indwelling Catheter Indwelling Catheter # Unmeasured Voids Void 3 1 Bowel Movement Yes # Bowel Movements 1 Weight Measurement Method Built [facility] Bed[facility] Active Medications Acetaminophen (Ofirmev Injection -) 1,000 mg IVPB Q6H PRN PRN Reason: PAIN LEVEL 6-10 Last Admin: 03/19/18 11:52 Dose: 1,000 mg Brimonidine Tartrate (Alphagan 0.2% -) 1 drop OD DAILY [facility] Last Admin: 03/20/18 09:43 Dose: 1 drop Chlorhexidine Gluconate (Hibiclens For Decolonization -) 1 applic TP HS [facility] Last Admin: 03/19/18 21:34 Dose: 1 applic Chlorhexidine Gluconate (Peridex -) 15 ml MM BID [facility] Last Admin: 03/20/18 09:42 Dose: 15 ml Midazolam HCl 100 mg/ Sodium (Chloride) 100 mls @ 2 mls/hr IVPB TITR KRISTY; Protocol Last Admin: 03/19/18 15:52 Dose: 2 mg/hr, 2 mls/hr Potassium Chloride/Sodium Chloride (Ns+20 Meq Kcl -) 20 meq in 1,000 mls @ 75 mls/hr IV ASDIR K[facility] Last Admin: 03/19/18 17:29 Dose: Not Given Potassium Chloride (Potassium Chloride 10 Meq Premix Ivpb -) 10 meq in 100 mls @ 100 mls/hr IVPB Q60M [facility]RISTY Stop: 03/20/18 11:14 Last Admin: 03/20/18 09:00 Dose: 100 mls/hr Vancomycin HCl 1,000 mg/ (Dextrose) 250 mls @ 166.667 mls/hr IVPB ONCE ONE; Protocol Stop: 03/20/18 11:49 Piperacillin Sod/Tazobactam (Sod 3.375 gm/ Dextrose) 50 mls @ 100 mls/hr IVPB Q8H-IV KRISTY; Protocol Levetiracetam (Keppra Injection -) 1,000 mg IVPB BID [facility] Last Admin: 03/20/18 09:46 Dose: 1,000 mg Levothyroxine Sodium (Synthroid Injection -) 25 mcg IVPUSH 0700 [facility] Last Admin: 03/20/18 07:15 Dose: 25 mcg Mupirocin (Bactroban Ointment (For Decolonization) -) 1 applic NS BID [facility] Stop: 03/22/18 21:59 Last Admin: 03/20/18 09:43 Dose: 1 applic Non-Formulary Medication (Eluxadoline [Viberzi]) 75 mg PO DAILY [facility] Pantoprazole Sodium (Protonix Iv) 40 mg IVPUSH DAILY [facility] Last Admin: 03/20/18 09:42 Dose: 40 mg Timolol Maleate (Timoptic 0.5%) 1 drop OD DAILY [facility] Last Admin: 03/20/18 09:43 Dose: 1 drop CBC, BMP 03/20/18 05:25 03/20/18 05:25 Abnormal Lab Results 03/19/18 03/19/18 03/20/18 16:10 19:40 05:25 WBC 19.0 H RBC 3.09 L Hgb 9.0 L Hct 25.9 L D MPV 7.1 L ABG pH 7.47 H ABG pCO2 at Pt Temp 34.2 L ABG O2 Content 13.7 L Potassium 3.1 L BUN 20 H Creatinine 1.7 H Random Glucose Calcium Magnesium ALT Total Protein Albumin 03/20/18 05:25 WBC RBC Hgb Hct MPV ABG pH ABG pCO2 at Pt Temp ABG O2 Content Potassium 2.9 L* BUN 22 H Creatinine 1.8 H Random Glucose 70 L Calcium 8.2 L Magnesium 1.5 L ALT 9 L D Total Protein 5.5 L Albumin 2.6 L cxr - Right base infiltrate PHYSICAL EXAM Intubated/ sedated cvs-s1s2 lungs-scattered rhonchi abd-soft,nt, nd LE- no edema A/P Subdural hematoma - acute on chronic- s/p evacuation. post craniotomy seizures- antiepileptics s/p craniotomy- 01/2018 CAD- h/o CABG DEMENTIA Infrarenal AAA repair-2017 monitor lytes Vent managment abx will follow Discussed with icu team/ id/ also cc time 30 min Problem List - Problems (1) HTN (hypertension) Code(s): I10 - ESSENTIAL (PRIMARY) HYPERTENSION Qualifiers: Hypertension type: essential hypertension Qualified Code(s): I10 - Essential (primary) hypertension (2) Hypothyroid Code(s): E03.9 - HYPOTHYROIDISM, UNSPECIFIED Qualifiers: Hypothyroidism type: other Qualified Code(s): E03.8 - Other specified hypothyroidism (3) S/P craniotomy Code(s): Z98.890 - OTHER SPECIFIED POSTPROCEDURAL STATES (4) Subdural hemorrhage Code(s): I62.00 - NONTRAUMATIC SUBDURAL HEMORRHAGE, UNSPECIFIED (5) Hypokalemia Code(s): E87.6 - HYPOKALEMIA
--- NOTE | 2018-03-20 11:11 | PN ---
Teaching Attending Note Name of Resident: Farhan Armijo ATTENDING PHYSICIAN STATEMENT I saw and evaluated the patient. I reviewed the resident's note and discussed the case with the resident. I agree with the resident's findings and plan as documented. SUBJECTIVE: Pt seen and examined in the ICU. Febrile, tachypneic, lethargic suspicious for aspiration yesterday so subsequently intubated. Went into atrial fibrillation overnight. Seizure activity resolved with versed gtt. OBJECTIVE: Vital Signs Period Temp Pulse Resp BP Sys/Michel Pulse Ox Last 24 Hr 98.6 F-101.5 F 93-115 16-26 112-149/55-77 95-95 Intake & Output 03/17/18 03/18/18 03/19/18 03/20/18 23:59 23:59 23:59 23:59 Intake Total 600 2050 1808 770 Output Total 300 606 800 100 Balance 300 1444 1008 670 Weight 53.07 kg 50 kg 22.997 kg Gen: intubated, sedated Heart: irregular Lung: scattered rhonchi Abd: soft, nontender Ext: no edema CBC, BMP 03/20/18 05:25 03/20/18 05:25 Active Medications Acetaminophen (Ofirmev Injection -) 1,000 mg IVPB Q6H PRN PRN Reason: PAIN LEVEL 6-10 Last Admin: 03/19/18 11:52 Dose: 1,000 mg Brimonidine Tartrate (Alphagan 0.2% -) 1 drop OD DAILY [facility] Last Admin: 03/20/18 09:43 Dose: 1 drop Chlorhexidine Gluconate (Hibiclens For Decolonization -) 1 applic TP HS [facility] Last Admin: 03/19/18 21:34 Dose: 1 applic Chlorhexidine Gluconate (Peridex -) 15 ml MM BID KRISTY Last Admin: 03/20/18 09:42 Dose: 15 ml Midazolam HCl 100 mg/ Sodium (Chloride) 100 mls @ 2 mls/hr IVPB TITR KRISTY; Protocol Last Admin: 03/19/18 15:52 Dose: 2 mg/hr, 2 mls/hr Potassium Chloride/Sodium Chloride (Ns+20 Meq Kcl -) 20 meq in 1,000 mls @ 75 mls/hr IV ASDIR KRISTY Last Admin: 03/19/18 17:29 Dose: Not Given Potassium Chloride (Potassium Chloride 10 Meq Premix Ivpb -) 10 meq in 100 mls @ 100 mls/hr IVPB Q60M [facility] Stop: 03/20/18 11:14 Last Admin: 03/20/18 09:00 Dose: 100 mls/hr Vancomycin HCl (Vancomycin 1 Gm Premix -) 1 gm in 200 mls @ 133.333 mls/hr IVPB ONCE ONE; Protocol Stop: 03/20/18 12:59 Piperacillin Sod/Tazobactam (Sod 3.375 gm/ Dextrose) 50 mls @ 100 mls/hr IVPB Q8H-IV KRISTY; Protocol Levetiracetam (Keppra Injection -) 1,000 mg IVPB BID [facility] Last Admin: 03/20/18 09:46 Dose: 1,000 mg Levothyroxine Sodium (Synthroid Injection -) 25 mcg IVPUSH 0700 [facility] Last Admin: 03/20/18 07:15 Dose: 25 mcg Mupirocin (Bactroban Ointment (For Decolonization) -) 1 applic NS BID [facility] Stop: 03/22/18 21:59 Last Admin: 03/20/18 09:43 Dose: 1 applic Non-Formulary Medication (Eluxadoline [Viberzi]) 75 mg PO DAILY [facility] Pantoprazole Sodium (Protonix Iv) 40 mg IVPUSH DAILY [facility] Last Admin: 03/20/18 09:42 Dose: 40 mg Timolol Maleate (Timoptic 0.5%) 1 drop OD DAILY [facility] Last Admin: 03/20/18 09:43 Dose: 1 drop ASSESSMENT AND PLAN: Acute Respiratory Failure Pneumonia likely Aspiration Sepsis Acute on Chronic Subdural Hematoma s/p [place]/Evacuation of Hematoma Seizures +Troponins likely [place] Ischemia Acute Kidney Injury HTN CKD Hypothyroidism - continue antibiotics - f/u cultures - rate control - defer anticoagulation due to subdural hematoma - repeat CT head - replete lytes - IVF - monitor urine output, creatinine - continue antiepileptics per neuro - mechanical DVT prophylaxis - continue ICU monitoring - prognosis guarded critical care time spent in reviewing chart, evaluating patient and formulating plan 35 min
--- NOTE | 2018-03-20 11:13 | CONS ---
INFECTIOUS DISEASE CONSULTATION DATE OF CONSULTATION: DATE OF DICTATION: 03/20/2018 REQUESTED BY: Dr. Harding HISTORY OF PRESENT ILLNESS: This is an 87-year-old man with a recent history of craniotomy and evacuation of hematoma on February 18 at [facility]. [facility]. [facility] the [facility] with altered mental status for the last 5 days. At baseline was ambulating and feeding himself and now is unable to do this. He had a repeat CAT scan done in the emergency room and was found to have a recurrent subdural. He was admitted to the ICU, and on March 18, he was taken back to the operating room for further drainage of the subdural. His hospital course has been complicated by seizures. Yesterday, he was noted to have a focal seizure, increased lethargy, and required intubation to protect his airway. He was noted to have fever, as well. Chest x-ray was done and he was found to have a right lower lobe infiltrate. He was started on piperacillin and tazobactam. I am asked to see him for further recommendations. He is currently intubated and sedated and all the history if from chart review. PAST MEDICAL HISTORY: Notable for hypertension. He has had a left orbital fracture, gout, osteopenia, coronary artery disease, umbilical hernia, BPH. SURGICAL HISTORY: Notable for a CABG in 2004. He is also status post 4 stents. History of endovascular repair of an abdominal aortic aneurysm, bilateral iliac angioplasties, craniotomy and evacuation of hematoma February 18 of this year, appendectomy, tonsillectomy. He has a history as well of dementia, hypertension, hyperlipidemia, chronic low back pain , hypothyroidism. SOCIAL HISTORY: [facility]. No history of any cigarette use. ALLERGIES: No known drug allergies. MEDICATIONS: At the [facility] include Combigan eye drops, Viberzi, aspirin, Lopressor, amlodipine, chlorthalidone, Colace, Neurontin, potassium, Keppra, and Synthroid. REVIEW OF SYSTEMS: The nurse reports he has had no diarrhea and fevers began yesterday. PHYSICAL EXAMINATION: Vital signs: His T-maximum is 101.5 yesterday, current temperature is 100.5, pulse of 115, blood pressure is 120/55, respiratory rate is 22. He is on the ventilator with an FiO2 of 40%, saturating 95%. HEENT: He has a dressing on the left side of his head at the site of his recent surgery. He is sedated and not responding. He is orally intubated. Lungs: Have diminished breath sounds at the bases. Heart: Regular rate and rhythm. Extremities: He has peripheral IVs. There are no signs of phlebitis. His extremities are without edema. Abdomen: Soft. Nontender. There is no distention. He has a Taxus catheter draining clear, yellow urine. LABORATORIES: Notable this morning for a white count of 19,000, hemoglobin 9, platelets are 258, INR is 1.3, BUN and creatinine are 22 and 1.8 with a potassium of 2.9. Blood cultures and a sputum culture have been sent. He has no prior history of resistant organisms. IMAGING: Chest x-ray reveals a right lower lobe infiltrate. CAT scan from yesterday reveals interval size increase in the subdural hematoma. In summary, this is an 87-year-old man with hospital-acquired pneumonia, recurrent subdural hematoma, seizures, MALINDA, CKD, electrolyte abnormalities, currently intubated for airway protection. Cultures are pending. Would give him 1 dose of vancomycin, given his CKD. Continue Zosyn adjusted for this. Follow up his cultures. Management of recurrent subdural per Neurosurgery. Management of electrolyte abnormalities and volume status per Pulmonary ICU. Further recommendations to follow. The case was discussed with the ICU team. REGINA ALCANTAR M.D. [id number] MTDD
[2018-03-20] MEDS ORDERED: SODIUM CHLORIDE 1,000 ML IV STA (11:20)
[2018-03-20] MEDS ORDERED: VANCOMYCIN 1 GM PREMIX - 1 GM/200 ML BAG IVPB ONE (11:30)
--- NOTE | 2018-03-20 11:38 | PN ---
Progress Note (short form) - Note Progress Note: seizure after subdural hematoma evacuation 87 year old male came from [place] for mental status change. He has history of craniotomy and evacuation of subdural hematoma on February [address] Rad Wilson. Patient under went repeat craniotectomy and hematoma evacuation. FOllowing surgery he has worsening of seizure and was given ativan and keppra was upped. He was intubated to protect airway and now on sedation. He has not been seizing. Case discussed with resident team and ICU attending. ICU attening spoke to Dr Rad Marlow and decided to no further neurosurgery intervention at this time. P Neurological Examinatoin Intuabted and sedated and no twitching or focal seizure was seen NO withdrawal to painful stimuli pupils are small and left side there is eivdence of old surgery ? glaucoma CT scan on Ag morning,showed worsening of subdural on right side Repeat ct is planned and is pending Assessment- 1. 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 Focal seizure secondary to subdural and history of craniotectomy twice Plan- EEG 2. Conitnue keppra for now and if there is breakthrough seizure consider iv phosphenytoin plan was discussed with resident team Thanking you os much Jerardo Stokes MD
--- NOTE | 2018-03-20 15:17 | ECHO ---
Name: JOSE BLOOD Exam:Adult Echocardiogram Study Date: 03/20/2018 12:10 PM Age: 87 yrs Reason For Study: A-Fib Height: 68 in Weight: 130 lb BSA: 1.7 m2 MMode/2D Measurements & Calculations IVSd: 0.90 cm Ao root diam: 4.0 cm LVIDd: 3.8 cm LA dimension: 4.5 cm LVIDs: 2.6 cm ACS: 1.5 cm LVPWd: 0.88 cm IVSs: 1.2 cm LVPWs: 0.94 cm EDV(Teich): 61.0 ml ESV(Teich): 24.3 ml Doppler Measurements & Calculations MV E max berhane: 68.8 cm/sec Ao V2 max: 111.0 cm/sec MV A max berhane: 62.5 cm/sec Ao max P.9 mmHg MV E/A: 1.1 Ao V2 mean: 77.5 cm/sec Ao mean P.7 mmHg Ao V2 VTI: 17.7 cm AI P1/2t: 480.1 msec AI max berhane: 331.2 cm/sec TR max berhane: 241.4 cm/sec AI max P.9 mmHg TR max P.3 mmHg AI dec slope: 202.0 cm/sec2 Med Peak E' Berhane: 6.7 cm/sec Med E/e': 10.3 Lat Peak E' Berhane: 6.5 cm/sec Lat E/e': 10.6 Procedure The study was technically adequate with some images being suboptimal in quality. Left Ventricle Probably mild, concentric LVH (technically limited images for measurement). The left ventricle is nor mal in size. Ejection Fraction = 65%. No regional wall motion abnormalities noted. Right Ventricle The right ventricle is normal in size and function. Atria The left atrium is mildly dilated. Mitral Valve There is severe mitral annular calcification. There is mild to moderate mitral valve thickening. Ther e is no mitral valve stenosis. There is mild mitral regurgitation. Tricuspid Valve The tricuspid valve is not well visualized, but is grossly normal. There is moderate tricuspid regurg itation. Aortic Valve There is moderate aortic valve thickening. The aortic valve is trileaflet. No hemodynamically signifi cant valvular aortic stenosis. Mild aortic regurgitation. Pulmonic Valve The pulmonic valve is not well visualized. Trace pulmonic valvular regurgitation. Great Vessels The aortic root is normal size. Pericardium/Pleura There is no pericardial effusion. Interpretation Summary Probably mild, concentric LVH (technically limited images for measurement). The study was technically adequate with some images being suboptimal in quality. Ejection Fraction = 65%. No regional wall motion abnormalities noted. The right ventricle is normal in size and function. The left atrium is mildly dilated. There is mild mitral regurgitation. There is moderate tricuspid regurgitation. Mild aortic regurgitation. MD Chris Steve 03/20/2018 03:16 PM
--- NOTE | 2018-03-20 15:23 | EKG ---
Test Reason : Blood Pressure : / mmHG Vent. Rate : 114 BPM Atrial Rate : 228 BPM P-R Int : 000 ms QRS Dur : 086 ms QT Int : 330 ms P-R-T Axes : 265 033 -15 degrees QTc Int : 454 ms ATRIAL FLUTTER WITH 2:1 A-V CONDUCTION NONSPECIFIC ST AND T WAVE ABNORMALITY ABNORMAL ECG WHEN COMPARED WITH ECG OF 16-MAR-2018 14:43, ATRIAL FLUTTER HAS REPLACED JUNCTIONAL RHYTHM VENT. RATE HAS INCREASED BY [address] NOW DEPRESSED IN INFERIOR LEADS Confirmed by Sharon Echols ([id number]) on 03/20/2018 3:22:44 PM Referred By: RORY RIVERO DREGH Confirmed By:Sharon Echols
[2018-03-20] MEDS: PIPERACILLIN/TAZOB 3.375 GM 3.375 GM in DEXTROSE 5%-WATER - 50 ML IVPB SCH (17:55)
[2018-03-20] MEDS: SODIUM CHLORIDE 0.45%/POT 20 MEQ/1,000 ML INFUS.BAG IV SCH (17:56)
[2018-03-20 18:29] LABS: ALBUMIN 2.3 g/dl (3.4-5.0); ALK PHOS 77 U/L (45-117); ANION GAP 12 MMOL/L (8-16); BILIRUBIN,TOTAL 0.6 mg/dL (0.2-1.0); BLOOD UREA NITROGEN 26 mg/dL (7-18); CALCIUM 7.9 mg/dL (8.5-10.1); CHLORIDE 107 mmol/L (98-107); CO2 25 mmol/L (21-32); CREATININE 1.8 mg/dL (0.7-1.3); GLUCOSE,RANDOM 104 mg/dL (74-106); POTASSIUM 3.7 mmol/L (3.5-5.1); SGOT/AST 16 U/L (15-37); SGPT/ALT 9 U/L (12-78); SODIUM 144 mmol/L (136-145); TOT PROT 5.1 g/dl (6.4-8.2)
--- NOTE | 2018-03-20 19:31 | PN ---
Physical Exam: SUBJECTIVE: Patient seen and examined this am and afternoon. Pt remains unresponsive to stimuli, remains on versed drip. Sent for CT Head this afternoon. Went into A-Fib overnight. Has not had any seizure activity since yesterday. Girlfriend Brandy and friend at bedside. OBJECTIVE: Vital Signs Period Temp Pulse Resp BP Sys/Michel Pulse Ox Last 24 Hr 98.6 F-100.5 F 93-115 16-23 120-147/55-76 95-95 GENERAL: Nonresponsive HEAD: Bandage on left parietal region of head. EYES: Left pupil dilated. ENT: MMM NECK: No JVD LUNGS: Dec BS at bases. B/L rhonchi. HEART: RRR. ABDOMEN: Soft, NT, ND, No HSM. EXTREMITIES: thin, muscle wasting. SKIN: No Rashes or lesions appreciated. Laboratory Results - last 24 hr 03/19/18 03/19/18 03/20/18 19:25 19:40 05:25 WBC 19.0 H RBC 3.09 L Hgb 9.0 L Hct 25.9 L D MCV 84.0 MCH 29.1 MCHC 34.7 RDW 12.8 Plt Count 258 MPV 7.1 L Sodium 140 Potassium 3.1 L Chloride 101 Carbon Dioxide 25 Anion Gap 14 BUN 20 H Creatinine 1.7 H Creat Clearance w eGFR 38.32 Random Glucose 80 Calcium 8.6 Phosphorus Magnesium Total Bilirubin AST ALT Alkaline Phosphatase Total Protein Albumin Blood Type O NEGATIVE Antibody Screen Negative 03/20/18 03/20/18 05:25 16:15 WBC RBC Hgb Hct MCV MCH MCHC RDW Plt Count MPV Sodium 143 144 Potassium 2.9 L* 3.7 D Chloride 102 107 Carbon Dioxide 26 25 Anion Gap 15 12 BUN 22 H 26 H Creatinine 1.8 H 1.8 H Creat Clearance w eGFR 35.87 35.87 Random Glucose 70 L 104 D Calcium 8.2 L 7.9 L Phosphorus 2.8 Magnesium 1.5 L Total Bilirubin 0.8 0.6 AST 20 16 ALT 9 L D 9 L Alkaline Phosphatase 79 77 Total Protein 5.5 L 5.1 L Albumin 2.6 L 2.3 L Blood Type Antibody Screen Active Medications Generic Name Dose Route Start Last Admin Trade Name Freq PRN Reason Stop Dose Admin Acetaminophen 1,000 mg 03/18/18 15:11 03/19/18 11:52 Ofirmev Injection - IVPB 1,000 mg Q6H PRN Administration PAIN LEVEL 6-10 Brimonidine Tartrate 1 drop 03/18/18 10:00 03/20/18 09:43 Alphagan 0.2% - OD 1 drop DAILY KRISTY Administration Chlorhexidine Gluconate 1 applic 03/17/18 22:00 03/19/18 21:34 Hibiclens For Decolonization - TP 1 applic HS KRISTY Administration Chlorhexidine Gluconate 15 ml 03/19/18 22:00 03/20/18 09:42 Peridex - MM 15 ml BID KRISTY Administration Midazolam HCl 100 mg/ Sodium 100 mls @ 2 mls/hr 03/19/18 15:30 03/19/18 15:52 Chloride IVPB 2 mg/hr TITR KRISTY 2 mls/hr Administration Protocol 2 MG/HR Piperacillin Sod/Tazobactam 50 mls @ 100 mls/hr 03/20/18 18:00 03/20/18 17:55 Sod 3.375 gm/ Dextrose IVPB 100 mls/hr Q8H-IV KRISTY Administration Protocol Potassium Chloride/Sodium Chloride 20 meq in 1,000 mls @ 100 mls/hr 03/20/18 11:30 03/20/18 17:56 1/2ns+20meq Kcl IV 100 mls/hr ASDIR KRISTY Administration Levetiracetam 1,000 mg 03/19/18 10:00 03/20/18 09:46 Keppra Injection - IVPB 1,000 mg BID KRISTY Administration Levothyroxine Sodium 25 mcg 03/19/18 07:45 03/20/18 07:15 Synthroid Injection - IVPUSH 25 mcg 0700 KRISTY Administration Mupirocin 1 applic 03/17/18 22:00 03/20/18 09:43 Bactroban Ointment (For Decolonization) - NS 03/22/18 21:59 1 applic BID KRISTY Administration Pantoprazole Sodium 40 mg 03/17/18 10:00 03/20/18 09:42 Protonix Iv IVPUSH 40 mg DAILY KRISTY Administration Timolol Maleate 1 drop 03/18/18 10:00 03/20/18 09:43 Timoptic 0.5% OD 1 drop DAILY KRISTY Administration ASSESSMENT/PLAN: 87 y/o M w/PMH HTN, Dementia, HLD, 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 - CT Head W/O Contrast 03/17/18--> Large left subdural hematoma with areas of bright signal which could represent subacute or superimposed recent bleed. Midline shift appears worse as compared to yesterday study. Personally reviewed CT scan with Dr Fontaine this afternoon. CT Head 03/20---> Compared to prior CT Head 03/18 slightly diminished size of a left fontoparietal subdural hematoma. POD #2 Evacuation of Subdural Hematoma. CT Head s/p Evacuation 03/18---> Status post left parietal craniotomy. Evacuation of left subdural hematoma. most of left subdural hematoma evacuated. Postsurgical pneumocephalus along the left frontal, parietal convexities is noted. CT Head 03/18--> shift of midline structures increased to 9 mm with new interval acute/subacute subdural hemorrhage in left posterior frontal/parietal region. -Keppra 1,000 mg BID IVPB FEN No Fluids Monitor electrolytes NPO DVT ppx: Mechanical Dispo Continue to monitor in icu. Visit type - Emergency Visit Emergency Visit: Yes ED Registration Date: 03/16/18 Care time: The patient presented to the Emergency Department on the above date and was hospitalized for further evaluation of their emergent condition. - New Patient This patient is new to me today: No - Critical Care Critical Care patient: Yes Total Critical Care Time (in minutes): 35 Critical Care Statement: The care of this patient involved high complexity decision making to prevent further life threatening deterioration of the patient 's condition and/or to evaluate & treat vital organ system(s) failure or risk of failure.
[2018-03-20] MEDS: MIDAZOLAM 100 MG in SODIUM CHLORIDE 100 ML IVPB SCH (21:22)
[2018-03-20] MEDS: CHLORHEXIDINE GLUCONATE 4% CLEANSER FOR DECOLONIZATION TP SCH (21:22)
[2018-03-21] MEDS ORDERED: PIPERACILLIN/TAZOBACTAM 3.375 GM VIAL IVPB ONE ×3 (01:36→17:35)
[2018-03-21] MEDS: PIPERACILLIN/TAZOB 3.375 GM 3.375 GM in DEXTROSE 5%-WATER - 50 ML IVPB SCH ×3 (01:37→18:12)
[2018-03-21] MEDS ORDERED: DEXTROSE 5%-WATER - 50 ML IVPB ONE ×3 (01:37→17:35)
[2018-03-21] MEDS: LEVOTHYROXINE SODIUM 100 MCG VIAL IVPUSH SCH (06:07)
[2018-03-21 06:09] LABS: HEMATOCRIT 25.4 % (35.4-49); HEMOGLOBIN 8.7 GM/dL (11.7-16.9); MCH 28.9 pg (25.7-33.7); MCHC 34.2 g/dl (32.0-35.9); MEAN CELL VOLUME 84.4 fl (80-96); MEAN PLT VOLUME 7.1 fl (7.5-11.1); PLATELET COUNT 218 K/MM3 (134-434); RBC 3.01 M/mm3 (4.00-5.60); WHITE BLOOD COUNT 16.2 K/mm3 (4.0-10.0)
[2018-03-21 06:38] LABS: CHLORIDE 106 mmol/L (98-107); POTASSIUM 3.3 mmol/L (3.5-5.1); SODIUM 141 mmol/L (136-145)
[2018-03-21 06:44] LABS: ALBUMIN 2.2 g/dl (3.4-5.0); ALK PHOS 77 U/L (45-117); ANION GAP 9 MMOL/L (8-16); BILIRUBIN,TOTAL 0.5 mg/dL (0.2-1.0); BLOOD UREA NITROGEN 28 mg/dL (7-18); CALCIUM 7.8 mg/dL (8.5-10.1); CO2 26 mmol/L (21-32); CREATININE 1.8 mg/dL (0.7-1.3); GLUCOSE,RANDOM 101 mg/dL (74-106); MAGNESIUM 1.9 mg/dL (1.8-2.4); SGOT/AST 14 U/L (15-37); SGPT/ALT 7 U/L (12-78)
[2018-03-21] MEDS ORDERED: POTASSIUM PHOSPHATE 30 MM in SODIUM CHLORIDE 250 ML IVPB ONE (09:00)
--- NOTE | 2018-03-21 09:19 | PN ---
Progress Note (short form) - Note Progress Note: Sedated/ intubated All f/u noted afebrile Vital Signs Temp 98.4 F 03/21/18 06:00 Pulse 82 03/21/18 06:00 Resp 16 03/21/18 06:33 BP 138/70 03/21/18 06:00 Pulse Ox 99 03/20/18 19:48 Intake & Output 03/20/18 03/20/18 03/21/18 11:59 23:59 11:59 Intake Total 770 2353 2374 Output Total 100 750 350 Balance 670 1603 2024 Weight 111 lb 12.39 oz 114 lb 3.2 oz Intake: IV 770 1953 2224 1/2NS+20MEQ KCL 20 meq In 933 1200 1,000 ml @ 100 mls/hr IV ASDIR KRISTY Rx#: [id number] NS+20 MEQ KCL - 20 meq In 750 1,000 ml @ 75 mls/hr IV ASDIR KRISTY Rx#:[id number] Normal Saline - 1,000 ml 1000 1000 @ 1000 mls/hr IV ASDIR STA Rx#:[id number] Versed - 100 mg In Normal 20 20 24 Saline - 100 ml @ 2 MG/ HR 2 mls/hr IVPB TITR KRISTY Rx#:[id number] IVPB 400 150 Output: Urine 100 750 350 Penny 350 Void 100 750 Other: Voiding Method Indwelling Catheter External Catheter External Catheter # Unmeasured Voids Void 1 Bowel Movement Yes # Bowel Movements 1 Body Mass Index (BMI) 16.9 Weight Measurement Method Built in Bedscale Built in Bedscale Active Medications Acetaminophen (Ofirmev Injection -) 1,000 mg IVPB Q6H PRN PRN Reason: PAIN LEVEL 6-10 Last Admin: 03/19/18 11:52 Dose: 1,000 mg Brimonidine Tartrate (Alphagan 0.2% -) 1 drop OD DAILY [facility] Last Admin: 03/20/18 09:43 Dose: 1 drop Chlorhexidine Gluconate (Hibiclens For Decolonization -) 1 applic TP HS [facility] Last Admin: 03/20/18 21:22 Dose: 1 applic Chlorhexidine Gluconate (Peridex -) 15 ml MM BID [facility] Last Admin: 03/20/18 21:23 Dose: 15 ml Midazolam HCl 100 mg/ Sodium (Chloride) 100 mls @ 2 mls/hr IVPB TITR KRISTY; Protocol Last Admin: 03/20/18 21:22 Dose: 2 mg/hr, 2 mls/hr Piperacillin Sod/Tazobactam (Sod 3.375 gm/ Dextrose) 50 mls @ 100 mls/hr IVPB Q8H-IV KRISTY; Protocol Last Admin: 03/21/18 01:37 Dose: 100 mls/hr Potassium Chloride/Sodium Chloride (1/2ns+20meq Kcl) 20 meq in 1,000 mls @ 100 mls/hr IV ASDIR KRISTY Last Admin: 03/20/18 17:56 Dose: 100 mls/hr Potassium Phosphate 30 mm/ (Sodium Chloride) 260 mls @ 62.5 mls/hr IVPB ONCE ONE Stop: 03/21/18 13:09 Potassium Chloride (Potassium Chloride 10 Meq Premix Ivpb -) 10 meq in 100 mls @ 100 mls/hr IVPB Q60M KRISTY Stop: 03/21/18 12:29 Levetiracetam (Keppra Injection -) 1,000 mg IVPB BID [facility] Last Admin: 03/20/18 21:22 Dose: 1,000 mg Levothyroxine Sodium (Synthroid Injection -) 25 mcg IVPUSH 0700 [facility]CLUD[facility] Last Admin: 03/21/18 06:07 Dose: 25 mcg Mupirocin (Bactroban Ointment (For Decolonization) -) 1 applic NS BID [facility] Stop: 03/22/18 21:59 Last Admin: 03/20/18 21:22 Dose: 1 applic Pantoprazole Sodium (Protonix Iv) 40 mg IVPUSH DAILY [facility] Last Admin: 03/20/18 09:42 Dose: 40 mg Timolol Maleate (Timoptic 0.5%) 1 drop OD DAILY [facility] Last Admin: 03/20/18 09:43 Dose: 1 drop CBC, BMP 03/21/18 05:30 03/21/18 05:30 Microbiology 03/19/18 17:15 Gram Stain - Final Sputum - Endotrachea Suction/Ventilator 03/19/18 12:48 Blood Culture - Preliminary Blood - Peripheral Venous NO GROWTH OBTAINED AFTER 24 HOURS, INCUBATION TO CONTINUE FOR 4 DAYS. 03/19/18 13:05 Blood Culture - Preliminary Blood - Peripheral Venous NO GROWTH OBTAINED AFTER 24 HOURS, INCUBATION TO CONTINUE FOR [address] head-- Improvement. cxr -- reviewed-- right base infiltrate. Echo- Reviewed PHYSICAL EXAM Intubated/ sedated cvs-s1s2 lungs-scattered rhonchi abd-soft,nt, nd LE- no edema A/P Monitor closly continue present care abx will follow discussed with icu team also will follow Problem List - Problems (1) HTN (hypertension) Code(s): I10 - ESSENTIAL (PRIMARY) HYPERTENSION Qualifiers: Hypertension type: essential hypertension Qualified Code(s): I10 - Essential (primary) hypertension (2) Hypothyroid Code(s): E03.9 - HYPOTHYROIDISM, UNSPECIFIED Qualifiers: Hypothyroidism type: other Qualified Code(s): E03.8 - Other specified hypothyroidism (3) S/P craniotomy Code(s): Z98.890 - OTHER SPECIFIED POSTPROCEDURAL STATES (4) Subdural hemorrhage Code(s): I62.00 - NONTRAUMATIC SUBDURAL HEMORRHAGE, UNSPECIFIED (5) Hypokalemia Code(s): E87.6 - HYPOKALEMIA
--- NOTE | 2018-03-21 10:27 | CON.CARD ---
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 No: AFIB, Aneurysm, Aortic Insufficiency, Aortic Stenosis, CHF, Deep Vein Thrombosis, OR, Mitral Insufficiency, Mitral Stenosis, Murmur, Pulmonary Hypertension Musculoskeletal: Yes: Chronic low back pain (with radiculopathy) Rheumatology: Yes: Gout, Other (Polymyalgia Rheumatica) Endocrine: Yes: Hypothyroidism. No: Brandt's Disease, Houston's Disease, Diabetes Insipidus, Diabetes Mellitus, Hyperparathyroidism, Hyperthyroidism, Osteopenia, SIADH, Other - Past Surgical History Past Surgical History: Yes: Appendectomy, CABG ([facility]), Tonsillectomy. No: None, AAA Repair, AICD, Amputation, Arthrosocopy, AV Fistula/Graft, Bariatric Surgery , Breast Biopsy, Bypass, Carotid Endarterectomy, Cataract Removal, Cholecystectomy, Colectomy, Colonoscopy, Colostomy, Craniotomy, , Cystectomy, Hernia Repair, Hysterectomy, Ileal Conduit, Ileosotomy, Joint Replacement, Kidney Transplant, Laminectomy, Liver Transplant, Mastectomy, Nephrectomy, Oopherectomy, Orchiectomy, Permanent Pacemaker, Prostatectomy, Splenectomy, Stent, Thoracotomy, TURP, Tubal Ligation, Upper Endoscopy, Valve Replacement, Vasectomy, Vein Stripping/Ligation - Alcohol/Substance Use Hx Alcohol Use: Yes (SOCIALLY) - Smoking History Smoking history: Never smoked Have you smoked in the past 12 months: No Aproximately how many cigarettes per day: 0 Home Medications - Allergies Allergies/Adverse Reactions: Allergies Allergy/AdvReac Type Severity Reaction Status Date / Time No Known Allergies Allergy Verified 03/16/18 12:52 - Home Medications Home Medications: Ambulatory Orders Brimonidine Tartrate/Timolol [Combigan 0.2%-0.5% Eye Drops] 1 drop OD DAILY 01/13 Eluxadoline [Viberzi] 75 mg PO DAILY 10/01/17 Aspirin [ASA -] 81 mg PO DAILY tab.chew 10/07/17 Metoprolol Tartrate [Lopressor -] 25 mg PO BID #60 tablet 10/07/17 Acetaminophen [Tylenol .Regular Strength -] 650 mg PO Q6H PRN #30 tablet Amlodipine Besylate [Norvasc -] 10 mg PO DAILY #30 tablet 02/25/18 Chlorthalidone [Hygroton -] 25 mg PO DAILY #30 tablet 02/25/18 Docusate Sodium [Colace -] 100 mg PO DAILY #60 capsule 02/25/18 Gabapentin [Neurontin -] 100 mg PO TID #90 capsule 02/25/18 Potassium Chloride [K-Dur -] 20 meq PO DAILY #30 tablet.er 02/25/18 levETIRAcetam [Keppra -] 500 mg PO BID #60 tablet 02/25/18 Levothyroxine [Synthroid -] 50 mcg PO DAILY@0600 03/16/18 Review of Systems Unable to obtain ROS, reason: Sedated and intubated Vital Signs: Vital Signs Temperature 98.4 F 03/21/18 06:00 Pulse Rate 85 03/21/18 09:45 Respiratory Rate 16 03/21/18 09:10 Blood Pressure 138/70 03/21/18 06:00 O2 Sat by Pulse Oximetry (%) 99 03/21/18 09:45 Constitutional: Yes: No Distress, Calm Neck: Yes: Supple Respiratory: Yes: Intubated, Mechanically Ventilated, Rhonchi Gastrointestinal: Yes: Normal Bowel Sounds, Soft Cardiovascular: Yes: Regular Rate and Rhythm JVD: No Carotid Bruit: No Heart Sounds: Yes: S1, S2 Edema: No - Other Data Labs, Other Data: CBC, BMP 03/21/18 05:30 03/21/18 05:30 INR, PTT INR 1.35 (0.83-1.09) H 03/17/18 05:30 Atypical aflutter @ 114 Ejection Fraction %: LVEF > or = 40 % Imaging - Results Chest X-ray: Report Reviewed (Rt base infiltrate) Cat Scan: Report Reviewed (HCT: 03/20/2018 Decreased left frontoparietal SDH) Problem List - Problems (1) Demand ischemia Code(s): I24.8 - OTHER FORMS OF ACUTE ISCHEMIC HEART DISEASE (2) Atrial flutter Code(s): I48.92 - UNSPECIFIED ATRIAL FLUTTER Qualifiers: Atrial flutter type: atypical Qualified Code(s): I48.4 - Atypical atrial flutter (3) S/P CABG (coronary artery bypass graft) Code(s): Z95.1 - PRESENCE OF AORTOCORONARY BYPASS GRAFT (4) History of endovascular stent graft for abdominal aortic aneurysm (AAA) Code(s): Z95.828 - PRESENCE OF OTHER VASCULAR IMPLANTS AND GRAFTS (5) Focal seizures Code(s): R56.9 - UNSPECIFIED CONVULSIONS (6) History of craniotomy Code(s): Z98.890 - OTHER SPECIFIED POSTPROCEDURAL STATES (7) Pneumonia Code(s): J18.9 - PNEUMONIA, UNSPECIFIED ORGANISM Qualifiers: Pneumonia type: aspiration pneumonia (8) MALINDA (acute kidney injury) Code(s): N17.9 - ACUTE KIDNEY FAILURE, UNSPECIFIED (9) Aneurysm of infrarenal abdominal aorta Code(s): I71.4 - ABDOMINAL AORTIC ANEURYSM, WITHOUT RUPTURE (10) HTN (hypertension) Code(s): I10 - ESSENTIAL (PRIMARY) HYPERTENSION Qualifiers: Hypertension type: essential hypertension Qualified Code(s): I10 - Essential (primary) hypertension (11) Hypothyroid Code(s): E03.9 - HYPOTHYROIDISM, UNSPECIFIED Qualifiers: Hypothyroidism type: other Qualified Code(s): E03.8 - Other specified hypothyroidism (12) Subdural hemorrhage Code(s): I62.00 - NONTRAUMATIC SUBDURAL HEMORRHAGE, UNSPECIFIED (13) Hyperlipidemia Code(s): E78.5 - HYPERLIPIDEMIA, UNSPECIFIED Qualifiers: Hyperlipidemia type: pure hypercholesterolemia Qualified Code(s): E78.00 - Pure hypercholesterolemia, unspecified; E78.0 - Pure hypercholesterolemia (14) Hypokalemia Code(s): E87.6 - HYPOKALEMIA Assessment/Plan Mild cLVH, normal LVEF 65%, normal RV size and fxn, mild LAE, mild MR , AR and mod TR 1. Acute Respiratory Failure referable to pneumonia likely aspiration 2. Atypical atrial flutter 3. CAD s/p CABG, Demand ischemia 4. Acute on Chronic Subdural Hematoma 5. s/p [place] Hole/Evacuation of Hematoma 6. Seizure d/o 7. Acute on chronic kidney Injury 8. HTN 9. Hypothyroidism 10. AAA s/p EVAR 11. Hyperlipidemia P: 1. Resume Lopressor 25 bid, defer anticoagulation due to subdural hematoma, add Lipitor 10 qd 2. Continue antibiotics per C&S 3. Continue antiepileptics per neuro 4. Vent wean per ABG, monitor renal recovery, replete K, trops have peaked 5. Mechanical DVT and GI prophylaxis, enteral feeds 6. Thank you for consultative opportunity
[2018-03-21] MEDS: PANTOPRAZOLE SODIUM 40 MG VIAL IVPUSH SCH (11:31)
[2018-03-21] MEDS: MUPIROCIN 2% TOPICAL OINTMENT FOR DECOLONIZATION NS SCH ×2 (11:35→21:45)
[2018-03-21] MEDS: levETIRAcetam 500 MG/5 ML INJECTION VIAL IVPB SCH ×2 (11:35→21:40)
[2018-03-21] MEDS: BRIMONIDINE TARTRATE 0.2% OPHTHALMIC 5 ML BOTTLE OD SCH (11:36)
[2018-03-21] MEDS: CHLORHEXIDINE GLUCONATE 0.12% 15ML CUP MM SCH ×2 (11:36→21:46)
[2018-03-21] MEDS: SODIUM CHLORIDE 0.45%/POT 20 MEQ/1,000 ML INFUS.BAG IV SCH ×2 (11:37→18:12)
[2018-03-21] MEDS: TIMOLOL 0.5% OPHTHALMIC SOL 5 ML BOTTLE OD SCH (11:37)
--- NOTE | 2018-03-21 12:31 | PN ---
Teaching Attending Note Name of Resident: Farhan Armijo ATTENDING PHYSICIAN STATEMENT I saw and evaluated the patient. I reviewed the resident's note and discussed the case with the resident. I agree with the resident's findings and plan as documented. SUBJECTIVE: Patient seen and examined in the ICU. Remains intubated and sedated on Versed. AC mode of vent, 40% FiO2. No pressors. CXR: no gross change in bibasilar infiltrates Right > left / ETT in position OBJECTIVE: Intake & Output 03/18/18 03/19/18 03/20/18 03/21/18 23:59 23:59 23:59 23:59 Intake Total 2050 1808 3123 2374 Output Total 606 800 850 350 Balance 1444 1008 2273 4 Weight 117 lb 110 lb 3.698 oz 111 lb 12.39 oz 114 lb 3.2 oz Last Vital Signs Temp Pulse Resp BP Pulse Ox 97.1 F L 75 16 142/73 99 03/21/18 12:19 03/21/18 12:19 03/21/18 12:19 03/21/18 12:19 03/21/18 09:45 Active Medications Acetaminophen (Ofirmev Injection -) 1,000 mg IVPB Q6H PRN PRN Reason: PAIN LEVEL 6-10 Last Admin: 03/19/18 11:52 Dose: 1,000 mg Atorvastatin Calcium (Lipitor -) 10 mg NGT HS KRISTY Brimonidine Tartrate (Alphagan 0.2% -) 1 drop OD DAILY KRISTY Last Admin: 03/21/18 11:36 Dose: Not Given Chlorhexidine Gluconate (Hibiclens For Decolonization -) 1 applic TP HS KRISTY Last Admin: 03/20/18 21:22 Dose: 1 applic Chlorhexidine Gluconate (Peridex -) 15 ml MM BID KRISTY Last Admin: 03/21/18 11:36 Dose: 15 ml Midazolam HCl 100 mg/ Sodium (Chloride) 100 mls @ 2 mls/hr IVPB TITR KRISTY; Protocol Last Admin: 03/20/18 21:22 Dose: 2 mg/hr, 2 mls/hr Piperacillin Sod/Tazobactam (Sod 3.375 gm/ Dextrose) 50 mls @ 100 mls/hr IVPB Q8H-IV KRISTY; Protocol Last Admin: 03/21/18 11:31 Dose: 100 mls/hr Potassium Chloride/Sodium Chloride (1/2ns+20meq Kcl) 20 meq in 1,000 mls @ 100 mls/hr IV ASDIR [facility] Last Admin: 03/21/18 11:37 Dose: Not Given Potassium Phosphate 30 mm/ (Sodium Chloride) 260 mls @ 62.5 mls/hr IVPB ONCE ONE Stop: 03/21/18 13:09 Last Admin: 03/21/18 11:32 Dose: 62.5 mls/hr Potassium Chloride (Potassium Chloride 10 Meq Premix Ivpb -) 10 meq in 100 mls @ 100 mls/hr IVPB Q60M [facility] Stop: 03/21/18 12:59 Levetiracetam (Keppra Injection -) 1,000 mg IVPB BID [facility] Last Admin: 03/21/18 11:35 Dose: 1,000 mg Levothyroxine Sodium (Synthroid Injection -) 25 mcg IVPUSH 0700 [facility] Last Admin: 03/21/18 06:07 Dose: 25 mcg Metoprolol Tartrate (Lopressor -) 25 mg NGT BID [facility] Mupirocin (Bactroban Ointment (For Decolonization) -) 1 applic NS BID [facility] Stop: 03/22/18 21:59 Last Admin: 03/21/18 11:35 Dose: 1 applic Pantoprazole Sodium (Protonix Iv) 40 mg IVPUSH DAILY [facility] Last Admin: 03/21/18 11:31 Dose: 40 mg Timolol Maleate (Timoptic 0.5%) 1 drop OD DAILY [facility] Last Admin: 03/21/18 11:37 Dose: Not Given Gen: intubated, sedated Heart: irregular Lung: scattered rhonchi Abd: soft, nontender Ext: no edema Laboratory Results - last 24 hr 03/20/18 03/21/18 03/21/18 16:15 05:30 05:30 WBC 16.2 H RBC 3.01 L Hgb 8.7 L Hct 25.4 L MCV 84.4 MCH 28.9 MCHC 34.2 RDW 13.0 Plt Count 218 MPV 7.1 L Sodium 144 Potassium 3.7 D Chloride 107 Carbon Dioxide 25 Anion Gap 12 BUN 26 H Creatinine 1.8 H Creat Clearance w eGFR 35.87 Random Glucose 104 D Calcium 7.9 L Phosphorus Magnesium Total Bilirubin 0.6 AST 16 ALT 9 L Alkaline Phosphatase 77 Total Protein 5.1 L Albumin 2.3 L Random Vancomycin 12.83 03/21/18 05:30 WBC RBC Hgb Hct MCV MCH MCHC RDW Plt Count MPV Sodium 141 Potassium 3.3 L Chloride 106 Carbon Dioxide 26 Anion Gap 9 BUN 28 H Creatinine 1.8 H Creat Clearance w eGFR 35.87 Random Glucose 101 Calcium 7.8 L Phosphorus 2.0 L D Magnesium 1.9 D Total Bilirubin 0.5 AST 14 L ALT 7 L D Alkaline Phosphatase 77 Total Protein 5.0 L Albumin 2.2 L Random Vancomycin ASSESSMENT AND PLAN: Acute Respiratory Failure Pneumonia likely Aspiration Sepsis Acute on Chronic Subdural Hematoma s/p [place]/Evacuation of Hematoma Seizures +Troponins likely Demand Ischemia Acute Kidney Injury HTN CKD Hypothyroidism - continue antibiotics - rate control - defer anticoagulation due to subdural hematoma - replete lytes - monitor urine output, creatinine - IVF - continue antiepileptics per neuro - mechanical DVT prophylaxis - continue ICU monitoring - prognosis guarded - D/C sedation and start SBTs Dr Pinedo Critical care time spent in reviewing chart, evaluating patient and formulating plan 35 min
[2018-03-21] MEDS: METOPROLOL TARTRATE 25 MG TABLET (FP) NGT SCH ×2 (15:25→21:44)
[2018-03-21] MEDS: KCL 10 MEQ IVPB 10 MEQ/100 ML INFUS.BAG IVPB SCH (15:27)
--- NOTE | 2018-03-21 17:03 | PN ---
Progress Note (short form) - Note Progress Note: remains intubated Vital Signs Period Temp Pulse Resp BP Sys/Michel Pulse Ox Last 24 Hr 96 F-99 F 75-90 16-23 114-142/62-73 95-100 cor-rrr lungs decreased bs at bases abd soft,nt ext no edema CBC, BMP 03/21/18 05:30 03/21/18 05:30 Microbiology 03/19/18 12:48 Blood - Peripheral Venous Blood Culture - Preliminary NO GROWTH OBTAINED AFTER 48 HOURS, INCUBATION TO CONTINUE FOR 3 DAYS. 03/19/18 13:05 Blood - Peripheral Venous Blood Culture - Preliminary NO GROWTH OBTAINED AFTER 48 HOURS, INCUBATION TO CONTINUE FOR 3 DAYS. 03/19/18 17:15 Sputum - Endotrachea Suction/Ventilator Gram Stain - Final 03/19/18 17:15 Sputum - Endotrachea Suction/Ventilator Sputum Culture - Preliminary Yeast Like Organism [id number] infiltrate Current Medications Acetaminophen (Ofirmev Injection -) 1,000 mg IVPB Q6H PRN PRN Reason: PAIN LEVEL 6-10 Last Admin: 03/19/18 11:52 Dose: 1,000 mg Atorvastatin Calcium (Lipitor -) 10 mg NGT HS [facility] Brimonidine Tartrate (Alphagan 0.2% -) 1 drop OD DAILY [facility] Last Admin: 03/21/18 11:36 Dose: Not Given Chlorhexidine Gluconate (Hibiclens For Decolonization -) 1 applic TP HS [facility] Last Admin: 03/20/18 21:22 Dose: 1 applic Chlorhexidine Gluconate (Peridex -) 15 ml MM BID [facility] Last Admin: 03/21/18 11:36 Dose: 15 ml Piperacillin Sod/Tazobactam (Sod 3.375 gm/ Dextrose) 50 mls @ 100 mls/hr IVPB Q8H-IV KRISTY; Protocol Last Admin: 03/21/18 11:31 Dose: 100 mls/hr Potassium Chloride/Sodium Chloride (1/2ns+20meq Kcl) 20 meq in 1,000 mls @ 100 mls/hr IV ASDIR [facility]RIST[facility] Last Admin: 03/21/18 11:37 Dose: Not Given Levetiracetam (Keppra Injection -) 1,000 mg IVPB BID [facility] Last Admin: 03/21/18 11:35 Dose: 1,000 mg Levothyroxine Sodium (Synthroid Injection -) 25 mcg IVPUSH 0700 [facility] Last Admin: 03/21/18 06:07 Dose: 25 mcg Metoprolol Tartrate (Lopressor -) 25 mg NGT BID [facility] Last Admin: 03/21/18 15:25 Dose: 25 mg Mupirocin (Bactroban Ointment (For Decolonization) -) 1 applic NS BID [facility] Stop: 03/22/18 21:59 Last Admin: 03/21/18 11:35 Dose: 1 applic Pantoprazole Sodium (Protonix Iv) 40 mg IVPUSH DAILY [facility] Last Admin: 03/21/18 11:31 Dose: 40 mg Timolol Maleate (Timoptic 0.5%) 1 drop OD DAILY [facility] Last Admin: 03/21/18 11:37 Dose: Not Given a/p HAP recurrent subdural hematoma seizures malinda/ckd electrolyte abnl continue zosyn, f/u sputum culture Problem List - Problems (1) Pneumonia Code(s): J18.9 - PNEUMONIA, UNSPECIFIED ORGANISM Qualifiers: Pneumonia type: aspiration pneumonia (2) Subdural hemorrhage Code(s): I62.00 - NONTRAUMATIC SUBDURAL HEMORRHAGE, UNSPECIFIED (3) Focal seizures Code(s): R56.9 - UNSPECIFIED CONVULSIONS (4) MALINDA (acute kidney injury) Code(s): N17.9 - ACUTE KIDNEY FAILURE, UNSPECIFIED (5) Electrolyte abnormality Code(s): E87.8 - OTH DISORDERS OF ELECTROLYTE AND FLUID BALANCE, NEC
--- NOTE | 2018-03-21 18:24 | PN ---
Progress Note (short form) - Note Progress Note: 87 year old male had seizure after subdural hematoma evacuation .He initially came from [place] for mental status change. He has history of craniotomy and evacuation of subdural hematoma on February [address] Rad Wilson. Patient under went repeat craniotectomy and hematoma evacuation. FOllowing surgery he has worsening of seizure and was given ativan and keppra was upped. He was intubated to protect airway and now on sedation. He was seen by neurosurgery as per primary team, and was advice to treat conservative. Patient has not had any seizure and sedation is being tapered off. she is not repsonding to pain or verbal stimuli. sedation is off since 10 am Neurological Examinatoin Intuabted and and no seizure activity seen NO withdrawal to painful stimuli or verbal stimuli pupils are small and left side there is eivdence of old surgery ? glaucoma CT scan on Ag showed mild improvement Assessment- 1. 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 Focal seizure secondary to subdural and history of craniotectomy twice , and currently it is controlled Plan- currently seizure is controlled 2. Conitnue keppra for now and if there is breakthrough seizure consider maximizing medication and adding AED. plan was discussed with Resident team Thanking you os much Jerardo Stokes MD
--- NOTE | 2018-03-21 20:17 | PN ---
Physical Exam: SUBJECTIVE: Patient seen and examined this am and evening in icu. Pt remains intubated and non-responsive to stimuli. Versed stopped this morning. No acute seizure activity overnight. Girlfriend Brandy at bedside. OBJECTIVE: Vital Signs Period Temp Pulse Resp BP Sys/Michel Pulse Ox Last 24 Hr 96 F-98.6 F 75-90 16-18 114-142/62-73 98-100 GENERAL: Nonresponsive, sedation d/c'ed. HEAD: Bandage on left parietal region of head. ENT: MMM NECK: No JVD LUNGS: Dec BS at bases. B/L rhonchi. HEART: Irregular. ABDOMEN: Soft, NT, ND, No HSM. EXTREMITIES: thin, muscle wasting. SKIN: No Rashes or lesions appreciated. Laboratory Results - last 24 hr 03/21/18 03/21/18 03/21/18 05:30 05:30 05:30 WBC 16.2 H RBC 3.01 L Hgb 8.7 L Hct 25.4 L MCV 84.4 MCH 28.9 MCHC 34.2 RDW 13.0 Plt Count 218 MPV 7.1 L Sodium 141 Potassium 3.3 L Chloride 106 Carbon Dioxide 26 Anion Gap 9 BUN 28 H Creatinine 1.8 H Creat Clearance w eGFR 35.87 Random Glucose 101 Calcium 7.8 L Phosphorus 2.0 L D Magnesium 1.9 D Total Bilirubin 0.5 AST 14 L ALT 7 L D Alkaline Phosphatase 77 Total Protein 5.0 L Albumin 2.2 L Random Vancomycin 12.83 Active Medications Generic Name Dose Route Start Last Admin Trade Name Freq PRN Reason Stop Dose Admin Acetaminophen 1,000 mg 03/18/18 15:11 03/19/18 11:52 Ofirmev Injection - IVPB 1,000 mg Q6H PRN Administration PAIN LEVEL 6-10 Atorvastatin Calcium 10 mg 03/21/18 22:00 Lipitor - NGT HS KRISTY Brimonidine Tartrate 1 drop 03/18/18 10:00 03/21/18 11:36 Alphagan 0.2% - OD Not Given DAILY KRISTY Chlorhexidine Gluconate 1 applic 03/17/18 22:00 03/20/18 21:22 Hibiclens For Decolonization - TP 1 applic HS KRISTY Administration Chlorhexidine Gluconate 15 ml 03/19/18 22:00 03/21/18 11:36 Peridex - MM 15 ml BID KRISTY Administration Piperacillin Sod/Tazobactam 50 mls @ 100 mls/hr 03/20/18 18:00 03/21/18 18:12 Sod 3.375 gm/ Dextrose IVPB 100 mls/hr Q8H-IV KRISTY Administration Protocol Potassium Chloride/Sodium Chloride 20 meq in 1,000 mls @ 100 mls/hr 03/20/18 11:30 03/21/18 18:12 1/2ns+20meq Kcl IV 100 mls/hr ASDIR KRISTY Administration Levetiracetam 1,000 mg 03/19/18 10:00 03/21/18 11:35 Keppra Injection - IVPB 1,000 mg BID KRISTY Administration Levothyroxine Sodium 25 mcg 03/19/18 07:45 03/21/18 06:07 Synthroid Injection - IVPUSH 25 mcg 0700 KRISTY Administration Metoprolol Tartrate 25 mg 03/21/18 11:30 03/21/18 15:25 Lopressor - NGT 25 mg BID KRISTY Administration Mupirocin 1 applic 03/17/18 22:00 03/21/18 11:35 Bactroban Ointment (For Decolonization) - NS 03/22/18 21:59 1 applic BID KRISTY Administration Pantoprazole Sodium 40 mg 03/17/18 10:00 03/21/18 11:31 Protonix Iv IVPUSH 40 mg DAILY KRISTY Administration Timolol Maleate 1 drop 03/18/18 10:00 03/21/18 11:37 Timoptic 0.5% OD Not Given DAILY KRISTY ASSESSMENT/PLAN: 87 y/o M w/PMH HTN, Dementia, HLD, 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 -Remains Intubated -Midazolam D/C'ed this morning Neuro: Acute on Chronic Subdural Hematoma -Keppra 1,000 mg IVPB BID, may add IV Phosphenytoin per Dr Kingston if seizure activity not controlled. - CT Head W/O Contrast 03/17/18--> Large left subdural hematoma with areas of bright signal which could represent subacute or superimposed recent bleed. Midline shift appears worse as compared to yesterday study. Personally reviewed CT scan with Dr Fontaine this afternoon. CT Head 03/20---> Compared to prior CT Head 03/18 slightly diminished size of a left fontoparietal subdural hematoma. POD #3 Evacuation of Subdural Hematoma. CT Head s/p Evacuation 03/18---> Status post left parietal craniotomy. Evacuation of left subdural hematoma. most of left subdural hematoma evacuated. Postsurgical pneumocephalus along the left frontal, parietal convexities is noted. CT Head 03/18--> shift of midline structures increased to 9 mm with new interval acute/subacute subdural hemorrhage in left posterior frontal/parietal region. -Keppra 1,000 mg BID IVPB Cardio Per Dr Su---> Resume Lopressor 25 bid, defer anticoagulation due to subdural hematoma, add Lipitor 10 qd Echo 03/20--> Moderate Tricuspid regurg, EF 65%. Chest X-Ray 03/21---> Persistent right lower base infiltrate. Some infiltrate and fluid left base. FEN Potassium Chloride/Sodium Chloride 20 meq in 1,000 mls @ 100 mls/hr Monitor electrolytes NPO DVT ppx: Mechanical Dispo Continue to monitor in icu. Visit type - Emergency Visit Emergency Visit: Yes ED Registration Date: 03/16/18 Care time: The patient presented to the Emergency Department on the above date and was hospitalized for further evaluation of their emergent condition. - New Patient This patient is new to me today: No - Critical Care Critical Care patient: Yes Total Critical Care Time (in minutes): 35 Critical Care Statement: The care of this patient involved high complexity decision making to prevent further life threatening deterioration of the patient 's condition and/or to evaluate & treat vital organ system(s) failure or risk of failure.
[2018-03-21] MEDS: ATORVASTATIN CA 10 MG TABLET (FP) NGT SCH (21:40)
[2018-03-21] MEDS: CHLORHEXIDINE GLUCONATE 4% CLEANSER FOR DECOLONIZATION TP SCH (21:46)
--- NOTE | 2018-03-22 01:06 | PN ---
Progress Note (short form) - Note Progress Note: off sedation since x 12 hr. Neuro check 1am: woke up and opened eyes to painful stimulus, castellon snot follow commands. + blinking in a twitching, rhythmic movemement. does slightly move lower extremities.
[2018-03-22] MEDS: PIPERACILLIN/TAZOB 3.375 GM 3.375 GM in DEXTROSE 5%-WATER - 50 ML IVPB SCH ×3 (03:00→19:09)
[2018-03-22] MEDS ORDERED: PIPERACILLIN/TAZOBACTAM 3.375 GM VIAL IVPB ONE ×5 (04:10→19:02)
[2018-03-22] MEDS ORDERED: DEXTROSE 5%-WATER - 50 ML IVPB ONE ×4 (04:10→19:02)
[2018-03-22] MEDS ORDERED: PT OWN MED DRAWER 7, Y5N ONE ×2 (05:52→09:27)
[2018-03-22] MEDS: LEVOTHYROXINE SODIUM 100 MCG VIAL IVPUSH SCH (05:58)
[2018-03-22 06:40] LABS: BASO % 0.4 % (0-2.0); EOS % 6.9 % (0-4.5); HEMATOCRIT 24.5 % (35.4-49); HEMOGLOBIN 8.6 GM/dL (11.7-16.9); LYMPH % 9.5 % (8-40); MCH 29.5 pg (25.7-33.7); MCHC 35.2 g/dl (32.0-35.9); MEAN CELL VOLUME 83.9 fl (80-96); MONO % 8.5 % (3.8-10.2); NEUT % 74.7 % (42.8-82.8); PLATELET COUNT 248 K/MM3 (134-434); RBC 2.92 M/mm3 (4.00-5.60); WHITE BLOOD COUNT 9.8 K/mm3 (4.0-10.0)
[2018-03-22 06:55] LABS: ALBUMIN 2.1 g/dl (3.4-5.0); ANION GAP 8 MMOL/L (8-16); BLOOD UREA NITROGEN 27 mg/dL (7-18); CALCIUM 7.7 mg/dL (8.5-10.1); CHLORIDE 105 mmol/L (98-107); CO2 26 mmol/L (21-32); GLUCOSE,RANDOM 89 mg/dL (74-106); MAGNESIUM 1.7 mg/dL (1.8-2.4); POTASSIUM 3.3 mmol/L (3.5-5.1); SODIUM 139 mmol/L (136-145)
[2018-03-22 06:59] LABS: ALK PHOS 95 U/L (45-117); BILIRUBIN,TOTAL 0.5 mg/dL (0.2-1.0); CREATININE 1.6 mg/dL (0.7-1.3); PHOSPHOROUS 2.7 mg/dL (2.5-4.9); SGOT/AST 17 U/L (15-37); SGPT/ALT 8 U/L (12-78); TOT PROT 5.2 g/dl (6.4-8.2)
--- NOTE | 2018-03-22 07:25 | PN ---
Progress Note (short form) - Note Progress Note: Chief complaint: Events noted, notes reviewed, remains intubated not responsive to verbal commands but responsive to painful stimuli History of Present Illness: Seen and examined in the ICU. Events noted, notes reviewed, remains intubated not responsive to verbal commands but responsive to painful stimuli Echocardiography dated 03/20/2018 revealed mild cLVH, normal LVEF 65%, normal RV size and function, mild LAE, mild MR, AR and moderate TR Allergies: NKA. Medical therapy currently includes: Current Medications Acetaminophen (Ofirmev Injection -) 1,000 mg IVPB Q6H PRN PRN Reason: PAIN LEVEL 6-10 Last Admin: 03/19/18 11:52 Dose: 1,000 mg Atorvastatin Calcium (Lipitor -) 10 mg NGT HS [facility] Last Admin: 03/21/18 21:40 Dose: 10 mg Brimonidine Tartrate (Alphagan 0.2% -) 1 drop OD DAILY [facility] Last Admin: 03/21/18 11:36 Dose: Not Given Chlorhexidine Gluconate (Hibiclens For Decolonization -) 1 applic TP HS [facility] Last Admin: 03/21/18 21:46 Dose: 1 applic Chlorhexidine Gluconate (Peridex -) 15 ml MM BID [facility] Last Admin: 03/21/18 21:46 Dose: 15 ml Piperacillin Sod/Tazobactam (Sod 3.375 gm/ Dextrose) 50 mls @ 100 mls/hr IVPB Q8H-IV [facility]; Protocol Last Admin: 03/22/18 03:00 Dose: 100 mls/hr Potassium Chloride/Sodium Chloride (1/2ns+20meq Kcl) 20 meq in 1,000 mls @ 100 mls/hr IV ASDIR [facility] Last Admin: 03/21/18 18:12 Dose: 100 mls/hr Levetiracetam (Keppra Injection -) 1,000 mg IVPB BID [facility] Last Admin: 03/21/18 21:40 Dose: 1,000 mg Levothyroxine Sodium (Synthroid Injection -) 25 mcg IVPUSH 0700 [facility] Last Admin: 03/22/18 05:58 Dose: 25 mcg Metoprolol Tartrate (Lopressor -) 25 mg NGT BID [facility] Last Admin: 03/21/18 21:44 Dose: 25 mg Mupirocin (Bactroban Ointment (For Decolonization) -) 1 applic NS BID [facility] Stop: 03/22/18 21:59 Last Admin: 03/21/18 21:45 Dose: 1 applic Pantoprazole Sodium (Protonix Iv) 40 mg IVPUSH DAILY [facility] Last Admin: 03/21/18 11:31 Dose: 40 mg Timolol Maleate (Timoptic 0.5%) 1 drop OD DAILY [facility] Last Admin: 03/21/18 11:37 Dose: Not Given Review of Systems: Unable to Obtain Physical Examination: Vital Signs: Last Vital Signs Temp Pulse Resp BP Pulse Ox 98.2 F 69 16 130/62 100 03/22/18 05:46 03/22/18 05:46 03/22/18 07:00 03/22/18 05:46 03/21/18 20:41 Intake & Output 03/19/18 03/20/18 03/21/18 03/22/18 23:59 23:59 23:59 23:59 Intake Total 1808 3123 2838 1213 Output Total 800 850 350 700 Balance 1008 2273 2488 513 Weight 110 lb 3.698 oz 111 lb 12.39 oz 114 lb 3.2 oz 122 lb 9.232 oz Neck: Supple negative JVD no bruit appreciated Heart: S1 and S2 Regular Rate and Rhythm Lungs: Diminished Breath Sounds at the Bases Bilateral Scattered Rhonchi Abdomen: Soft benign normoactive bowel sounds Extremities: Negative edema Lab Data: ABG Results ABG pH 7.47 (7.35-7.45) H 03/19/18 16:10 ABG pCO2 at Pt Temp 34.2 mmHg (35-45) L 03/19/18 16:10 ABG pO2 at Pt Temp 72.0 mmHg (68-100) 03/19/18 16:10 ABG HCO3 24.5 meq/L (22-26) 03/19/18 16:10 ABG O2 Sat (Measured) 95.8 % (90-98.9) 03/19/18 16:10 ABG O2 Content 13.7 % vol (15-22) L 03/19/18 16:10 ABG Base Excess 1.5 meq/l (-2-2) 03/19/18 16:10 CBC, BMP 03/22/18 05:30 08/25/18 05:30 Hepatic Panel Total Bilirubin 0.5 mg/dL (0.2-1.0) 03/22/18 05:30 AST 17 U/L (15-37) D 03/22/18 05:30 ALT 8 U/L (12-78) L 03/22/18 05:30 Alkaline Phosphatase 95 U/L (45-117) D 03/22/18 05:30 Albumin 2.1 g/dl (3.4-5.0) L 03/22/18 05:30 ASSESSMENT: 1. Acute Respiratory Failure referable to probable aspiration pneumonia 2. Paroxysmal Atypical atrial flutter [id number] score of 5 3. CAD post CABG angina pectoris demand ischemia 4. Diastolic LV dysfunction with class 0-I NYHA classification LV failure 5. Acute on Chronic Subdural Hematoma post Benjamin Hole/Evacuation of Hematoma 6. Seizure disorder 7. HTN 8. Hypercholesterolemia 9. AAA post EVAR 10. Hypothyroidism 11. Acute on chronic kidney Injury 12. Anemia 13. Hypokalemia PLAN: 1. Continue Lopressor 2. Continue Lipitor 3. Defer anticoagulation due to subdural hematoma 4. Antibiotics as per primary team 5. Continue anti-epileptics per neuro service 6. Hypokalemia correction 7. Ventilator management as per the critical care team Lanre Riggs M.D.
--- NOTE | 2018-03-22 08:15 | PN ---
Progress Note (short form) - Note Progress Note: PULM/CCM Patient seen and examined in the ICU. Versed Off, opens eyes &/or grimaces to pain, remains intubated on AC mode of vent, 40% FiO2. Active Medications Acetaminophen (Ofirmev Injection -) 1,000 mg IVPB Q6H PRN PRN Reason: PAIN LEVEL 6-10 Last Admin: 03/19/18 11:52 Dose: 1,000 mg Atorvastatin Calcium (Lipitor -) 10 mg NGT HS [facility] Last Admin: 03/21/18 21:40 Dose: 10 mg Brimonidine Tartrate (Alphagan 0.2% -) 1 drop OD DAILY [facility] Last Admin: 03/22/18 09:35 Dose: 1 drop Chlorhexidine Gluconate (Hibiclens For Decolonization -) 1 applic TP HS [facility] Last Admin: 03/21/18 21:46 Dose: 1 applic Chlorhexidine Gluconate (Peridex -) 15 ml MM BID [facility] Last Admin: 03/22/18 09:34 Dose: 15 ml Piperacillin Sod/Tazobactam (Sod 3.375 gm/ Dextrose) 50 mls @ 100 mls/hr IVPB Q8H-IV [facility]; Protocol Last Admin: 03/22/18 09:33 Dose: 100 mls/hr Potassium Chloride/Sodium Chloride (1/2ns+20meq Kcl) 20 meq in 1,000 mls @ 100 mls/hr IV ASDIR [facility] Last Admin: 03/21/18 18:12 Dose: 100 mls/hr Levetiracetam (Keppra Injection -) 1,000 mg IVPB BID [facility] Last Admin: 03/22/18 09:32 Dose: 1,000 mg Levothyroxine Sodium (Synthroid Injection -) 25 mcg IVPUSH 0700 [facility] Last Admin: 03/22/18 05:58 Dose: 25 mcg Metoprolol Tartrate (Lopressor -) 25 mg NGT BID [facility] Last Admin: 03/22/18 09:30 Dose: 25 mg Mupirocin (Bactroban Ointment (For Decolonization) -) 1 applic NS BID [facility] Stop: 03/22/18 21:59 Last Admin: 03/22/18 09:35 Dose: 1 applic Pantoprazole Sodium (Protonix Iv) 40 mg IVPUSH DAILY [facility] Last Admin: 03/22/18 09:30 Dose: 40 mg Timolol Maleate (Timoptic 0.5%) 1 drop OD DAILY [facility] Last Admin: 03/22/18 09:35 Dose: 1 drop Vital Signs Period Temp Pulse Resp BP Sys/Michel Pulse Ox Last 24 Hr 97.1 F-98.2 F 67-83 10-21 130-148/60-73 96-100 Intake & Output 03/19/18 03/20/18 03/21/18 03/22/18 23:59 23:59 23:59 23:59 Intake Total 1808 3123 4138 1213 Output Total 800 850 350 700 Balance 1008 2273 3788 513 Weight 50 kg 50.7 kg 51.8 kg 55.6 kg GEN: Elderly man, asleep, intubated on the Vent, HEENT: R pupil 2mm, L pupil surgical, an-icteric, MMM PULM: scattered rhonchi CV: nml S1 S2, irreg/irreg, unalel to apprecaite any G/M?R ABD: + BS, S/S N/T N/D X4Q EXT: + Pulses, WWPX4, no edema CBC, BMP 03/22/18 05:30 03/22/18 05:30 Microbiology 03/19/18 12:48 Blood - Peripheral Venous Blood Culture - Preliminary NO GROWTH OBTAINED AFTER 48 HOURS, INCUBATION TO CONTINUE FOR 3 DAYS. 03/19/18 13:05 Blood - Peripheral Venous Blood Culture - Preliminary NO GROWTH OBTAINED AFTER 48 HOURS, INCUBATION TO CONTINUE FOR 3 DAYS. 03/19/18 17:15 Sputum - Endotrachea Suction/Ventilator Gram Stain - Final 03/19/18 17:15 Sputum - Endotrachea Suction/Ventilator Sputum Culture - Preliminary Yeast Like Organism CXR 03/22: Since the prior study of 03/21/2018 at 0754 hours, the endotracheal tube and nasogastric tube with right base infiltrate persist. The left base still shows some minimal fluid and atelectasis as well. Follow-up recommended Impression : No significant change since prior study ASSESSMENT AND PLAN: Acute Respiratory Failure Pneumonia likely Aspiration Sepsis Acute on Chronic Subdural Hematoma s/p [place] Hole/Evacuation of Hematoma Seizures +Troponins likely Demand Ischemia Acute Kidney Injury HTN CKD Hypothyroidism - SBTs - continue antibiotics - rate control - defer anticoagulation due to subdural hematoma - replete lytes - monitor urine output, creatinine - IVF - continue antiepileptics per neuro - TFs - BR - mechanical DVT prophylaxis - GI ppx (Vent) - prognosis guarded - continue ICU monitoring DGL, ACNP-[facility] ICU PULM/[facility] [id number] Critical Care Total Critical Care Time (in minutes): 38 Critical Care Statement: The care of this patient involved high complexity decision making to prevent further life threatening deterioration of the patient 's condition and/or to evaluate & treat vital organ system(s) failure or risk of failure.
--- NOTE | 2018-03-22 08:50 | PN ---
Progress Note (short form) - Note Progress Note: 87 year old male had seizure after subdural hematoma evacuation .He initially came from [place] for mental status change. He has history of craniotomy and evacuation of subdural hematoma on February [address] Rad Wilson. Patient under went repeat craniotectomy and hematoma evacuation. FOllowing surgery he has worsening of seizure and was given ativan and keppra was upped. His repeat ct head is showing improving, as per primary team, plan is to continue conservative treatment Neurological Examinatoin Intuabted and and no seizure activity seen NO withdrawal to painful stimuli or verbal stimuli pupils are small and left side there is eivdence of old surgery ? glaucoma He is off sedation and now responding to painful stimuli no response to verbal stimuli CT scan on Agust showed mild improvement Assessment- 1. 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 Focal seizure secondary to subdural and history of craniotectomy twice , and currently it is controlled . COntinue current dose of keppra - Overall prognosis is guarded - feel free to call , if any question Thanking you os much Jerardo Stokes MD
--- NOTE | 2018-03-22 09:11 | PN ---
Progress Note (short form) - Note Progress Note: remains intubated versed off NAD Vital Signs Period Temp Pulse Resp BP Sys/Michel Pulse Ox Last 24 Hr 96 F-98.2 F 67-85 10-21 128-142/60-73 96-100 cor-rrr lungs decreased bs at bases abd soft,nt ext +edema both hands CBC, BMP 03/22/18 05:30 03/22/18 05:30 Microbiology 03/19/18 12:48 Blood - Peripheral Venous Blood Culture - Preliminary NO GROWTH OBTAINED AFTER 48 HOURS, INCUBATION TO CONTINUE FOR 3 DAYS. 03/19/18 13:05 Blood - Peripheral Venous Blood Culture - Preliminary NO GROWTH OBTAINED AFTER 48 HOURS, INCUBATION TO CONTINUE FOR 3 DAYS. 03/19/18 17:15 Sputum - Endotrachea Suction/Ventilator Gram Stain - Final 03/19/18 17:15 Sputum - Endotrachea Suction/Ventilator Sputum Culture - Preliminary Yeast Like Organism a/p HAP recurrent subdural hematoma seizures malinda/ckd electrolyte abnl wbc trending down, cxray unchanged continue zosyn, f/u sputum culture final results Problem List - Problems (1) Pneumonia Code(s): J18.9 - PNEUMONIA, UNSPECIFIED ORGANISM Qualifiers: Pneumonia type: aspiration pneumonia (2) Subdural hemorrhage Code(s): I62.00 - NONTRAUMATIC SUBDURAL HEMORRHAGE, UNSPECIFIED (3) Focal seizures Code(s): R56.9 - UNSPECIFIED CONVULSIONS (4) MALINDA (acute kidney injury) Code(s): N17.9 - ACUTE KIDNEY FAILURE, UNSPECIFIED (5) Electrolyte abnormality Code(s): E87.8 - OTH DISORDERS OF ELECTROLYTE AND FLUID BALANCE, NEC
[2018-03-22] MEDS: METOPROLOL TARTRATE 25 MG TABLET (FP) NGT SCH ×2 (09:30→21:34)
[2018-03-22] MEDS: PANTOPRAZOLE SODIUM 40 MG VIAL IVPUSH SCH (09:30)
[2018-03-22] MEDS: levETIRAcetam 500 MG/5 ML INJECTION VIAL IVPB SCH ×2 (09:32→21:34)
[2018-03-22] MEDS: CHLORHEXIDINE GLUCONATE 0.12% 15ML CUP MM SCH ×2 (09:34→21:34)
[2018-03-22] MEDS: MUPIROCIN 2% TOPICAL OINTMENT FOR DECOLONIZATION NS SCH (09:35)
[2018-03-22] MEDS: BRIMONIDINE TARTRATE 0.2% OPHTHALMIC 5 ML BOTTLE OD SCH (09:35)
[2018-03-22] MEDS: TIMOLOL 0.5% OPHTHALMIC SOL 5 ML BOTTLE OD SCH (09:35)
--- NOTE | 2018-03-22 12:34 | PN ---
Progress Note (short form) - Note Progress Note: pt seen/ examined in icu off sedation remains intubated all f/u noted Vital Signs Temp 98.2 F 03/22/18 09:50 Pulse 84 03/22/18 11:49 Resp 22 03/22/18 11:49 BP 132/67 03/22/18 11:49 Pulse Ox 96 03/22/18 09:18 Intake & Output 03/21/18 03/22/18 03/22/18 23:59 11:59 23:59 Intake Total 1764 1213 Output Total 700 Balance 1764 513 Weight 122 lb 9.232 oz Intake: IV 1214 1163 1/2NS+20MEQ KCL 20 meq In 1200 1163 1,000 ml @ 100 mls/hr IV ASDIR [facility] Rx#: [id number] Versed - 100 mg In Normal 14 Saline - 100 ml @ 2 MG/ HR 2 mls/hr IVPB TITR [facility] Rx#:[id number] IVPB 550 50 Output: Urine 700 Void 700 Other: Voiding Method Indwelling Catheter External Catheter Bowel Movement No Weight Measurement Method Built in [facility] Active Medications Acetaminophen (Ofirmev Injection -) 1,000 mg IVPB Q6H PRN PRN Reason: PAIN LEVEL 6-10 Last Admin: 03/19/18 11:52 Dose: 1,000 mg Atorvastatin Calcium (Lipitor -) 10 mg NGT HS [facility] Last Admin: 03/21/18 21:40 Dose: 10 mg Brimonidine Tartrate (Alphagan 0.2% -) 1 drop OD DAILY [facility] Last Admin: 03/22/18 09:35 Dose: 1 drop Chlorhexidine Gluconate (Hibiclens For Decolonization -) 1 applic TP HS [facility] Last Admin: 03/21/18 21:46 Dose: 1 applic Chlorhexidine Gluconate (Peridex -) 15 ml MM BID [facility] Last Admin: 03/22/18 09:34 Dose: 15 ml Piperacillin Sod/Tazobactam (Sod 3.375 gm/ Dextrose) 50 mls @ 100 mls/hr IVPB Q8H-IV [facility]; Protocol Last Admin: 03/22/18 09:33 Dose: 100 mls/hr Potassium Chloride/Sodium Chloride (1/2ns+20meq Kcl) 20 meq in 1,000 mls @ 100 mls/hr IV ASDIR [facility] Last Admin: 03/21/18 18:12 Dose: 100 mls/hr Potassium Chloride (Potassium Chloride 10 Meq Premix Ivpb -) 10 meq in 100 mls @ 100 mls/hr IVPB Q60M [facility] Stop: 03/22/18 15:29 Levetiracetam (Keppra Injection -) 1,000 mg IVPB BID [facility] Last Admin: 03/22/18 09:32 Dose: 1,000 mg Levothyroxine Sodium (Synthroid Injection -) 25 mcg IVPUSH 0700 [facility] Last Admin: 03/22/18 05:58 Dose: 25 mcg Metoprolol Tartrate (Lopressor -) 25 mg NGT BID [facility] Last Admin: 03/22/18 09:30 Dose: 25 mg Mupirocin (Bactroban Ointment (For Decolonization) -) 1 applic NS BID [facility] Stop: 03/22/18 21:59 Last Admin: 03/22/18 09:35 Dose: 1 applic Pantoprazole Sodium (Protonix Iv) 40 mg IVPUSH DAILY [facility] Last Admin: 03/22/18 09:30 Dose: 40 mg Timolol Maleate (Timoptic 0.5%) 1 drop OD DAILY [facility] Last Admin: 03/22/18 09:35 Dose: 1 drop CBC, BMP 03/22/18 05:30 03/22/18 05:30 Microbiology 03/19/18 12:48 Blood Culture - Preliminary Blood - Peripheral Venous NO GROWTH OBTAINED AFTER 48 HOURS, INCUBATION TO CONTINUE FOR 3 DAYS. 03/19/18 13:05 Blood Culture - Preliminary Blood - Peripheral Venous NO GROWTH OBTAINED AFTER 48 HOURS, INCUBATION TO CONTINUE FOR 3 DAYS. 03/19/18 17:15 Gram Stain - Final Sputum - Endotrachea Suction/Ventilator Sputum Culture - Preliminary Yeast Like Organism cxr- no change PHYSICAL EXAM Intubated/opens eyes cvs-s1s2 lungs-scattered rhonchi abd-soft,nt, nd LE- no edema A/P continue present care abx weaning as tolerated start on feeding discussed with icu team/ nursing staff will follow Problem List - Problems (1) HTN (hypertension) Code(s): I10 - ESSENTIAL (PRIMARY) HYPERTENSION Qualifiers: Hypertension type: essential hypertension Qualified Code(s): I10 - Essential (primary) hypertension (2) Hypothyroid Code(s): E03.9 - HYPOTHYROIDISM, UNSPECIFIED Qualifiers: Hypothyroidism type: other Qualified Code(s): E03.8 - Other specified hypothyroidism (3) S/P craniotomy Code(s): Z98.890 - OTHER SPECIFIED POSTPROCEDURAL STATES (4) Subdural hemorrhage Code(s): I62.00 - NONTRAUMATIC SUBDURAL HEMORRHAGE, UNSPECIFIED (5) Hypokalemia Code(s): E87.6 - HYPOKALEMIA
[2018-03-22] MEDS: SODIUM CHLORIDE 0.45%/POT 20 MEQ/1,000 ML INFUS.BAG IV SCH (14:31)
[2018-03-22] MEDS: KCL 10 MEQ IVPB 10 MEQ/100 ML INFUS.BAG IVPB SCH ×3 (14:32→19:02)
[2018-03-22] MEDS: ATORVASTATIN CA 10 MG TABLET (FP) NGT SCH (21:34)
[2018-03-22] MEDS: CHLORHEXIDINE GLUCONATE 4% CLEANSER FOR DECOLONIZATION TP SCH (21:35)
[2018-03-23] MEDS ORDERED: DEXTROSE 5%-WATER - 50 ML IVPB ONE ×2 (01:21→09:40)
[2018-03-23] MEDS ORDERED: PIPERACILLIN/TAZOBACTAM 3.375 GM VIAL IVPB ONE (01:21)
[2018-03-23] MEDS: PIPERACILLIN/TAZOB 3.375 GM 3.375 GM in DEXTROSE 5%-WATER - 50 ML IVPB SCH (01:30)
[2018-03-23] MEDS: LEVOTHYROXINE SODIUM 100 MCG VIAL IVPUSH SCH (06:25)
--- NOTE | 2018-03-23 07:40 | PN ---
Progress Note (short form) - Note Progress Note: PULM/CCM Patient seen and examined in the ICU. Versed Off, remains intubated on AC mode of vent, 40% FiO2. Completely obtunded +/- sz activity through max dose Keppra. High index of suspicion for FAIL. Transfer patient to NEURO ICU Unit. NOW. Active Medications Acetaminophen (Ofirmev Injection -) 1,000 mg IVPB Q6H PRN PRN Reason: PAIN LEVEL 6-10 Last Admin: 03/19/18 11:52 Dose: 1,000 mg Atorvastatin Calcium (Lipitor -) 10 mg NGT HS [facility] Last Admin: 03/22/18 21:34 Dose: 10 mg Brimonidine Tartrate (Alphagan 0.2% -) 1 drop OD DAILY [facility] Last Admin: 03/23/18 09:45 Dose: 1 drop Chlorhexidine Gluconate (Hibiclens For Decolonization -) 1 applic TP [facility] Last Admin: 03/22/18 21:35 Dose: 1 applic Chlorhexidine Gluconate (Peridex -) 15 ml MM BID [facility] Last Admin: 03/23/18 09:45 Dose: 15 ml Potassium Chloride/Sodium Chloride (1/2ns+20meq Kcl) 20 meq in 1,000 mls @ 100 mls/hr IV ASDIR [facility] Last Admin: 03/22/18 14:31 Dose: 100 mls/hr Ceftriaxone Sodium 1 gm/ (Dextrose) 50 mls @ 100 mls/hr IVPB DAILY [facility]; Protocol Last Admin: 03/23/18 09:46 Dose: 100 mls/hr Levetiracetam (Keppra Injection -) 1,000 mg IVPB BID [facility] Last Admin: 03/23/18 09:45 Dose: 1,000 mg Levothyroxine Sodium (Synthroid Injection -) 25 mcg IVPUSH 0700 [facility] Last Admin: 03/23/18 06:25 Dose: 25 mcg Metoprolol Tartrate (Lopressor -) 25 mg NGT BID [facility] Last Admin: 03/23/18 09:45 Dose: 25 mg Pantoprazole Sodium (Protonix Iv) 40 mg IVPUSH DAILY [facility] Last Admin: 03/23/18 09:45 Dose: 40 mg Timolol Maleate (Timoptic 0.5%) 1 drop OD DAILY [facility] Last Admin: 03/23/18 09:46 Dose: 1 drop V/S Period Temp Pulse Resp BP Sys/Michel Pulse Ox Last 24 Hr 98 F-98.7 F 63-84 5-22 132-154/56-86 96-100 Intake & Output 03/20/18 03/21/18 03/22/18 03/23/18 23:59 23:59 23:59 23:59 Intake Total 3123 4138 2813 1520 Output Total 028 461 9019 500 Balance 2273 3788 1213 1020 Weight 50.7 kg 51.8 kg 55.6 kg 54.93 kg GEN: Elderly man, uncon/unresp on the Vent, HEENT: R pupil 2mm, L pupil surgical, an-icteric, MMM PULM: diminished @ the bases CV: nml S1 S2, irreg/irreg, unabele to apprecaite any G/M/R ABD: + BS, S/S N/T N/D X4Q EXT: + Pulses, WWPX4, no edema CBC, BMP 03/22/18 05:30 03/22/18 05:30 Microbiology 03/19/18 17:15 Sputum - Endotrachea Suction/Ventilator Gram Stain - Final 03/19/18 17:15 Sputum - Endotrachea Suction/Ventilator Sputum Culture - Final Yeast Like Organism 03/19/18 12:48 Blood - Peripheral Venous Blood Culture - Preliminary NO GROWTH OBTAINED AFTER 72 HOURS, INCUBATION TO CONTINUE FOR 2 DAYS. 03/19/18 13:05 Blood - Peripheral Venous Blood Culture - Preliminary NO GROWTH OBTAINED AFTER 72 HOURS, INCUBATION TO CONTINUE FOR 2 DAYS. CXR 03/22: Since the prior study of 03/21/2018 at 0754 hours, the endotracheal tube and nasogastric tube with right base infiltrate persist. The left base still shows some minimal fluid and atelectasis as well. Follow-up recommended Impression : No significant change since prior study. TTE 03/20: mild cLVH, normal LVEF 65%, normal RV size and function, mild LAE, mild MR, AR and moderate TR. ASSESS: Acute Respiratory Failure Pneumonia likely Aspiration Sepsis Acute on Chronic Subdural Hematoma s/p [place] Hole/Evacuation of Hematoma Seizures +Troponins likely Demand Ischemia Acute Kidney Injury HTN CKD Hypothyroidism PLAN: - Load fospheny X 1G - Start 100 BID Pheny - Cont Keppra - Repeat [facility] - Transfer patient to NEURO ICU Unit - [facility] Neuro - continue abx for HAP 10/05 - rate control - defer anticoagulation due to subdural hematoma - replete lytes - monitor urine output, creatinine - IVF - TFs - BR - mechanical DVT prophylaxis - GI ppx (Vent) - continue ICU monitoring DGL, ACNP-[facility] ICU PULM/CCM [id number] Critical Care Total Critical Care Time (in minutes): 38 Critical Care Statement: The care of this patient involved high complexity decision making to prevent further life threatening deterioration of the patient 's condition and/or to evaluate & treat vital organ system(s) failure or risk of failure.
--- NOTE | 2018-03-23 07:44 | PN ---
Progress Note (short form) - Note Progress Note: Chief complaint: Events noted, notes reviewed, remains intubated not responsive to verbal commands but responsive to deep tactile stimuli, sinus rhythm is noted History of Present Illness: Seen and examined in the ICU. Events noted, notes reviewed, remains intubated not responsive to verbal commands but responsive to deep tactile stimuli, sinus rhythm is noted Echocardiography dated 03/20/2018 revealed mild cLVH, normal LVEF 65%, normal RV size and function, mild LAE, mild MR, AR and moderate TR Allergies: NKA. Medical therapy currently includes: Current Medications Acetaminophen (Ofirmev Injection -) 1,000 mg IVPB Q6H PRN PRN Reason: PAIN LEVEL 6-10 Last Admin: 03/19/18 11:52 Dose: 1,000 mg Atorvastatin Calcium (Lipitor -) 10 mg NGT HS [facility] Last Admin: 03/22/18 21:34 Dose: 10 mg Brimonidine Tartrate (Alphagan 0.2% -) 1 drop OD DAILY [facility] Last Admin: 03/22/18 09:35 Dose: 1 drop Chlorhexidine Gluconate (Hibiclens For Decolonization -) 1 applic TP HS [facility] Last Admin: 03/22/18 21:35 Dose: 1 applic Chlorhexidine Gluconate (Peridex -) 15 ml MM BID [facility] Last Admin: 03/22/18 21:34 Dose: 15 ml Piperacillin Sod/Tazobactam (Sod 3.375 gm/ Dextrose) 50 mls @ 100 mls/hr IVPB Q8H-IV [facility]; Protocol Last Admin: 03/23/18 01:30 Dose: 100 mls/hr Potassium Chloride/Sodium Chloride (1/2ns+20meq Kcl) 20 meq in 1,000 mls @ 100 mls/hr IV ASDIR [facility] Last Admin: 03/22/18 14:31 Dose: 100 mls/hr Levetiracetam (Keppra Injection -) 1,000 mg IVPB BID [facility] Last Admin: 03/22/18 21:34 Dose: 1,000 mg Levothyroxine Sodium (Synthroid Injection -) 25 mcg IVPUSH 0700 [facility] Last Admin: 03/23/18 06:25 Dose: 25 mcg Metoprolol Tartrate (Lopressor -) 25 mg NGT BID [facility] Last Admin: 03/22/18 21:34 Dose: 25 mg Pantoprazole Sodium (Protonix Iv) 40 mg IVPUSH DAILY [facility] Last Admin: 03/22/18 09:30 Dose: 40 mg Timolol Maleate (Timoptic 0.5%) 1 drop OD DAILY [facility] Last Admin: 03/22/18 09:35 Dose: 1 drop Review of Systems: Unable to Obtain Physical Examination: Vital Signs: Last Vital Signs Temp Pulse Resp BP Pulse Ox 98.3 F 66 18 154/74 99 03/23/18 06:00 03/23/18 06:00 03/23/18 06:00 03/23/18 06:00 03/22/18 20:33 Intake & Output 03/20/18 03/21/18 03/22/18 03/23/18 23:59 23:59 23:59 23:59 Intake Total 3123 4138 2813 1520 Output Total 436 052 2274 500 Balance 2273 3788 1213 1020 Weight 111 lb 12.39 oz 114 lb 3.2 oz 122 lb 9.232 oz 121 lb 1.6 oz Neck: Supple negative JVD no bruit appreciated Heart: S1 and S2 Regular Rate and Rhythm Lungs: Diminished Breath Sounds at the Bases Bilateral Scattered Rhonchi Abdomen: Soft benign normoactive bowel sounds Extremities: Negative edema Lab Data: CBC, BMP 03/22/18 05:30 03/22/18 05:30 Hepatic Panel Total Bilirubin 0.5 mg/dL (0.2-1.0) 03/22/18 05:30 AST 17 U/L (15-37) D 03/22/18 05:30 ALT 8 U/L (12-78) L 03/22/18 05:30 Alkaline Phosphatase 95 U/L (45-117) D 03/22/18 05:30 Albumin 2.1 g/dl (3.4-5.0) L 03/22/18 05:30 ASSESSMENT: 1. Acute Respiratory Failure referable to probable aspiration pneumonia 2. Paroxysmal Atypical atrial flutter [id number] score of 5 currently on no A/ C 3. CAD post CABG angina pectoris demand ischemia 4. Diastolic LV dysfunction with class 0-I NYHA classification LV failure, compensated/euvolemic 5. Acute on Chronic Subdural Hematoma post Benjamin Hole/Evacuation of Hematoma 6. Seizure disorder 7. HTN 8. Hypercholesterolemia 9. AAA post EVAR 10. Hypothyroidism 11. Acute on chronic kidney Injury 12. Anemia 13. Hypokalemia PLAN: 1. Continue Lopressor 2. Continue Lipitor 3. Defer anticoagulation due to subdural hematoma 4. Antibiotics as per primary team 5. Continue anti-epileptics per neuro service 6. Follow labs from this AM 7. Ventilator management as per the critical care team Lanre Riggs M.D.
--- NOTE | 2018-03-23 08:02 | PN ---
Progress Note (short form) - Note Progress Note: remains intubated off sedation, minimally responsive Vital Signs Period Temp Pulse Resp BP Sys/Michel Pulse Ox Last 24 Hr 98 F-98.7 F 63-84 16-22 132-154/56-86 96-100 cor-rrr lungs decreased bs at bases abd soft,nt ext no edema CBC, BMP 03/22/18 05:30 03/22/18 05:30 cxray unchanged Microbiology 03/19/18 17:15 Sputum - Endotrachea Suction/Ventilator Gram Stain - Final 03/19/18 17:15 Sputum - Endotrachea Suction/Ventilator Sputum Culture - Final Yeast Like Organism 03/19/18 12:48 Blood - Peripheral Venous Blood Culture - Preliminary NO GROWTH OBTAINED AFTER 72 HOURS, INCUBATION TO CONTINUE FOR 2 DAYS. 03/19/18 13:05 Blood - Peripheral Venous Blood Culture - Preliminary NO GROWTH OBTAINED AFTER 72 HOURS, INCUBATION TO CONTINUE FOR 2 DAYS. a/p respiratory failure HAP-zosyn day #3 recurrent subdural hematoma seizures malinda/ckd electrolyte abnl wbc trending down, cxray unchanged sputum culture no pseudomonas, will de-escalate to ceftriaxone management of subdural per NS Problem List - Problems (1) Pneumonia Code(s): J18.9 - PNEUMONIA, UNSPECIFIED ORGANISM Qualifiers: Pneumonia type: aspiration pneumonia (2) Subdural hemorrhage Code(s): I62.00 - NONTRAUMATIC SUBDURAL HEMORRHAGE, UNSPECIFIED (3) Focal seizures Code(s): R56.9 - UNSPECIFIED CONVULSIONS (4) MALINDA (acute kidney injury) Code(s): N17.9 - ACUTE KIDNEY FAILURE, UNSPECIFIED (5) Electrolyte abnormality Code(s): E87.8 - OTH DISORDERS OF ELECTROLYTE AND FLUID BALANCE, NEC
[2018-03-23] MEDS ORDERED: FOSPHENYTOIN SODIUM 1,000 MG in SODIUM CHLORIDE 100 ML IVPB ONE (08:45)
--- NOTE | 2018-03-23 08:46 | PN ---
Progress Note (short form) - Note Progress Note: 87 year old male had seizure after subdural hematoma evacuation .He initially came from [place] for mental status change. He has history of craniotomy and evacuation of subdural hematoma on February [address] Rad Wilson. Patient under went repeat craniotectomy and hematoma evacuation. SUBJECTIVE : Patient is not waking up and right sided face focal seizure were noticed. Neurological Examinatoin Intuabted and off sedation and not waking up He has right sided facial twitching seen eye are conjugate deviated to right side pupils are small and left side there is eivdence of old surgery ? glaucoma He is off sedation and now responding to painful stimuli no response to verbal stimuli CT scan on Agust showed mild improvement Assessment- 1. Acute on chronic subdural , There is no no neurosurgery coverage , I suggest to repeat stat ct head and if there is worsening consider transferring to [facility] , spoke to Critical care team. 2. Focal seizure secondary to subdural and history of craniotectomy twice , a having breakthrough seizure, currently on maximal dose of keppra. I advice to load with phosphenytoin and continue iv phsphenytoin. Communicated to Critical care team. - Overall prognosis is guarded - feel free to call , if any question Thanking you os much Jerardo Stokes MD
[2018-03-23] MEDS ORDERED: cefTRIAXone SODIUM 1 GM VIAL ONE (09:40)
[2018-03-23] MEDS: levETIRAcetam 500 MG/5 ML INJECTION VIAL IVPB SCH ×2 (09:45→21:08)
[2018-03-23] MEDS: CHLORHEXIDINE GLUCONATE 0.12% 15ML CUP MM SCH (09:45)
[2018-03-23] MEDS: PANTOPRAZOLE SODIUM 40 MG VIAL IVPUSH SCH (09:45)
[2018-03-23] MEDS: BRIMONIDINE TARTRATE 0.2% OPHTHALMIC 5 ML BOTTLE OD SCH (09:45)
[2018-03-23] MEDS: METOPROLOL TARTRATE 25 MG TABLET (FP) NGT SCH ×2 (09:45→21:08)
[2018-03-23] MEDS: CEFTRIAXONE 1 GM in DEXTROSE 5%-WATER - 50 ML IVPB SCH (09:46)
[2018-03-23] MEDS: TIMOLOL 0.5% OPHTHALMIC SOL 5 ML BOTTLE OD SCH (09:46)
--- NOTE | 2018-03-23 13:12 | PN ---
Progress Note (short form) - Note Progress Note: Pt seen/ examined in icu All f/u noted Intubated off sedation but poorly responsive afebrile Vital Signs Temp 98.3 F 03/23/18 06:00 Pulse 72 03/23/18 10:00 Resp 16 03/23/18 11:59 BP 137/73 03/23/18 10:00 Pulse Ox 100 03/23/18 11:59 Intake & Output 03/22/18 03/23/18 03/23/18 23:59 11:59 23:59 Intake Total 1600 1520 Output Total 900 500 Balance 700 1020 Weight 121 lb 1.6 oz Intake: IV 1200 1200 1/2NS+20MEQ KCL 20 meq In 1200 1200 1,000 ml @ 100 mls/hr IV ASDIR KRISTY Rx#: [id number] IVPB 400 200 Tube Feeding 120 Output: Urine 900 500 Penny 400 Void 500 500 Other: Voiding Method External Catheter External Catheter Bowel Movement No Weight Measurement Method Built in [facility] Active Medications Acetaminophen (Ofirmev Injection -) 1,000 mg IVPB Q6H PRN PRN Reason: PAIN LEVEL 6-10 Last Admin: 03/19/18 11:52 Dose: 1,000 mg Atorvastatin Calcium (Lipitor -) 10 mg NGT HS [facility] Last Admin: 03/22/18 21:34 Dose: 10 mg Brimonidine Tartrate (Alphagan 0.2% -) 1 drop OD DAILY [facility] Last Admin: 03/23/18 09:45 Dose: 1 drop Chlorhexidine Gluconate (Hibiclens For Decolonization -) 1 applic TP HS [facility] Last Admin: 03/22/18 21:35 Dose: 1 applic Chlorhexidine Gluconate (Peridex -) 15 ml MM BID [facility] Last Admin: 03/23/18 09:45 Dose: 15 ml Potassium Chloride/Sodium Chloride (1/2ns+20meq Kcl) 20 meq in 1,000 mls @ 100 mls/hr IV ASDIR KRISTY Last Admin: 03/22/18 14:31 Dose: 100 mls/hr Ceftriaxone Sodium 1 gm/ (Dextrose) 50 mls @ 100 mls/hr IVPB DAILY [facility]; Protocol Last Admin: 03/23/18 09:46 Dose: 100 mls/hr Levetiracetam (Keppra Injection -) 1,000 mg IVPB BID [facility] Last Admin: 03/23/18 09:45 Dose: 1,000 mg Levothyroxine Sodium (Synthroid Injection -) 25 mcg IVPUSH 0700 [facility] Last Admin: 03/23/18 06:25 Dose: 25 mcg Metoprolol Tartrate (Lopressor -) 25 mg NGT BID [facility] Last Admin: 03/23/18 09:45 Dose: 25 mg Pantoprazole Sodium (Protonix Iv) 40 mg IVPUSH DAILY [facility] Last Admin: 03/23/18 09:45 Dose: 40 mg Phenytoin Sodium (Dilantin Injection -) 100 mg IVPB BID [facility] Timolol Maleate (Timoptic 0.5%) 1 drop OD DAILY [facility] Last Admin: 03/23/18 09:46 Dose: 1 drop CBC, BMP 03/22/18 05:30 03/22/18 05:30 Microbiology 03/19/18 17:15 Gram Stain - Final Sputum - Endotrachea Suction/Ventilator Sputum Culture - Final Yeast Like Organism 03/19/18 12:48 Blood Culture - Preliminary Blood - Peripheral Venous NO GROWTH OBTAINED AFTER 72 HOURS, INCUBATION TO CONTINUE FOR 2 DAYS. 03/19/18 13:05 Blood Culture - Preliminary Blood - Peripheral Venous NO GROWTH OBTAINED AFTER 72 HOURS, INCUBATION TO CONTINUE FOR 2 DAYS. PHYSICAL EXAM Intubated/poorly responsive cvs-s1s2 lungs-scattered rhonchi abd-soft,nt, LE- no edema A/P Overall condition same No improvement Repeat ct scan ordered continue present care abx weaning as tolerated- not candidate yet started on feeding discussed with icu team/ nursing staff will follow. Problem List - Problems (1) HTN (hypertension) Code(s): I10 - ESSENTIAL (PRIMARY) HYPERTENSION Qualifiers: Hypertension type: essential hypertension Qualified Code(s): I10 - Essential (primary) hypertension (2) Hypothyroid Code(s): E03.9 - HYPOTHYROIDISM, UNSPECIFIED Qualifiers: Hypothyroidism type: other Qualified Code(s): E03.8 - Other specified hypothyroidism (3) S/P craniotomy Code(s): Z98.890 - OTHER SPECIFIED POSTPROCEDURAL STATES (4) Subdural hemorrhage Code(s): I62.00 - NONTRAUMATIC SUBDURAL HEMORRHAGE, UNSPECIFIED (5) Hypokalemia Code(s): E87.6 - HYPOKALEMIA
[2018-03-23] MEDS: PHENYTOIN SODIUM 100 MG/2 ML VIAL IVPB SCH (17:42)
[2018-03-23] MEDS: ATORVASTATIN CA 10 MG TABLET (FP) NGT SCH (21:08)
[2018-03-23] MEDS: CHLORHEXIDINE GLUCONATE 4% CLEANSER FOR DECOLONIZATION TP SCH (21:08)
[2018-03-24] MEDS: SODIUM CHLORIDE 0.45%/POT 20 MEQ/1,000 ML INFUS.BAG IV SCH (05:10)
[2018-03-24 06:05] LABS: HEMATOCRIT 28.9 % (35.4-49); MCH 29.2 pg (25.7-33.7); MCHC 34.6 g/dl (32.0-35.9); MEAN CELL VOLUME 84.3 fl (80-96); MEAN PLT VOLUME 6.9 fl (7.5-11.1); PLATELET COUNT 296 K/MM3 (134-434); RBC 3.43 M/mm3 (4.00-5.60); WHITE BLOOD COUNT 7.4 K/mm3 (4.0-10.0)
[2018-03-24] MEDS: LEVOTHYROXINE SODIUM 100 MCG VIAL IVPUSH SCH (06:06)
[2018-03-24 06:30] LABS: ANION GAP 10 MMOL/L (8-16); BLOOD UREA NITROGEN 22 mg/dL (7-18); CALCIUM 8.1 mg/dL (8.5-10.1); CHLORIDE 103 mmol/L (98-107); CO2 25 mmol/L (21-32); GLUCOSE,RANDOM 173 mg/dL (74-106); MAGNESIUM 1.6 mg/dL (1.8-2.4); POTASSIUM 3.5 mmol/L (3.5-5.1); SODIUM 138 mmol/L (136-145)
[2018-03-24 06:34] LABS: ALK PHOS 127 U/L (45-117); BILIRUBIN,TOTAL 0.4 mg/dL (0.2-1.0); CREATININE 1.3 mg/dL (0.7-1.3); PHOSPHOROUS 2.3 mg/dL (2.5-4.9); SGOT/AST 26 U/L (15-37); SGPT/ALT 15 U/L (12-78); TOT PROT 5.1 g/dl (6.4-8.2)
--- NOTE | 2018-03-24 06:58 | PN ---
Progress Note (short form) - Note Progress Note: Chief complaint: Events noted, notes reviewed, remains intubated not responsive to verbal commands but responsive to deep tactile stimuli-opening eyes, sinus rhythm is noted/persists History of Present Illness: Seen and examined in the ICU. Events noted, notes reviewed, remains intubated not responsive to verbal commands but responsive to deep tactile stimuli- opening eyes, sinus rhythm is noted/persists Echocardiography dated 03/20/2018 revealed mild cLVH, normal LVEF 65%, normal RV size and function, mild LAE, mild MR, AR and moderate TR Allergies: NKA. Medical therapy currently includes: Current Medications Acetaminophen (Ofirmev Injection -) 1,000 mg IVPB Q6H PRN PRN Reason: PAIN LEVEL 6-10 Last Admin: 03/19/18 11:52 Dose: 1,000 mg Atorvastatin Calcium (Lipitor -) 10 mg NGT HS [facility] Last Admin: 03/23/18 21:08 Dose: 10 mg Brimonidine Tartrate (Alphagan 0.2% -) 1 drop OD DAILY [facility] Last Admin: 03/23/18 09:45 Dose: 1 drop Chlorhexidine Gluconate (Hibiclens For Decolonization -) 1 applic TP HS [facility] Last Admin: 03/23/18 21:08 Dose: 1 applic Chlorhexidine Gluconate (Peridex -) 15 ml MM BID [facility] Last Admin: 03/24/18 00:00 Dose: 15 ml Potassium Chloride/Sodium Chloride (1/2ns+20meq Kcl) 20 meq in 1,000 mls @ 100 mls/hr IV ASDIR KRISTY Last Admin: 03/24/18 05:10 Dose: 100 mls/hr Ceftriaxone Sodium 1 gm/ (Dextrose) 50 mls @ 100 mls/hr IVPB DAILY [facility]; Protocol Last Admin: 03/23/18 09:46 Dose: 100 mls/hr Levetiracetam (Keppra Injection -) 1,000 mg IVPB BID [facility] Last Admin: 03/23/18 21:08 Dose: 1,000 mg Levothyroxine Sodium (Synthroid Injection -) 25 mcg IVPUSH 0700 [facility] Last Admin: 03/24/18 06:06 Dose: 25 mcg Metoprolol Tartrate (Lopressor -) 25 mg NGT BID [facility] Last Admin: 03/23/18 21:08 Dose: 25 mg Pantoprazole Sodium (Protonix Iv) 40 mg IVPUSH DAILY [facility] Last Admin: 03/23/18 09:45 Dose: 40 mg Phenytoin Sodium (Dilantin Injection -) 100 mg IVPB BID [facility] Last Admin: 03/23/18 17:42 Dose: 100 mg Timolol Maleate (Timoptic 0.5%) 1 drop OD DAILY [facility] Last Admin: 03/23/18 09:46 Dose: 1 drop Review of Systems: Unable to Obtain Physical Examination: Vital Signs: Last Vital Signs Temp Pulse Resp BP Pulse Ox 98.7 F 70 16 157/73 100 03/24/18 06:00 03/24/18 06:00 03/24/18 06:20 03/24/18 06:00 03/23/18 19:45 Intake & Output 03/21/18 03/22/18 03/23/18 03/24/18 23:59 23:59 23:59 23:59 Intake Total 4138 2813 1620 1420 Output Total 350 1600 1100 800 Balance 3788 1213 520 620 Weight 114 lb 3.2 oz 122 lb 9.232 oz 121 lb 1.6 oz 125 lb 10.616 oz Neck: Supple negative JVD no bruit appreciated Heart: S1 and S2 Regular Rate and Rhythm Lungs: Diminished Breath Sounds at the Bases Bilateral Scattered Rhonchi Abdomen: Soft benign normoactive bowel sounds Extremities: Negative edema Lab Data: CBC, BMP 03/24/18 05:30 03/24/18 05:30 ASSESSMENT: 1. Acute Respiratory Failure referable to probable aspiration pneumonia 2. Paroxysmal Atypical atrial flutter [id number] score of 5 currently on no A/ C related to subdural hematoma 3. CAD post CABG angina pectoris demand ischemic injury 4. Diastolic LV dysfunction with class 0-I NYHA classification LV failure, compensated/euvolemic 5. Acute on Chronic Subdural Hematoma post [place]/Evacuation of Hematoma 6. Seizure disorder 7. HTN 8. Hypercholesterolemia 9. AAA post EVAR 10. Hypothyroidism 11. Acute on chronic kidney Injury 12. Anemia PLAN: 1. Continue Lopressor 2. Add ARBS with close monitoring or renal function unless contraindicated 3. Continue Lipitor 4. Defer anticoagulation for atrial flutter with [id number] score of 5 due to subdural hematoma 4. Antibiotics as per primary team 5. Continue anti-epileptics per neuro service 6. Ventilator management as per the critical care team Lanre Riggs M.D.
[2018-03-24] MEDS ORDERED: MAGNESIUM SULF 50% (8.12 MEQ/2 ML-1 GM VIAL) IVPB ONE (08:09)
[2018-03-24] MEDS ORDERED: NAPH,MB-DB/K PH,MBDB POWDER PACKET PO ONE (08:09)
[2018-03-24] MEDS ORDERED: DEXTROSE 5%-WATER - 50 ML IVPB ONE (09:06)
[2018-03-24] MEDS ORDERED: cefTRIAXone SODIUM 1 GM VIAL ONE (09:06)
--- NOTE | 2018-03-24 09:16 | PN ---
Physical Exam: SUBJECTIVE: Patient seen and examined this AM. No acute events overnight. Pt tolerated intubation overnight without sedation. He would grimace to suction, and open eyes to verbal cues. His vitals and O2 sat have been stable on the ventilator. He had no sz activity overnight. He has been draining yellow urine via Sotelo catheter. OBJECTIVE: Vital Signs Period Temp Pulse Resp BP Sys/Michel Pulse Ox Last 24 Hr 98 F-98.7 F 63-82 16-18 127-157/56-73 99-100 GENERAL: The patient is stable on ventilator, O2 sat 100%. Pt opens eyes to verbal stimuli and can squeeze my hand on command. He appears to be lying comfortably and sleeping. HEAD: Clean and intact bandage on L occiput. No visible ecchymosis or bleeds. EYES: PERRL, extraocular movements intact (pt can track my movements), sclera anicteric, conjunctiva clear. No ptosis. ENT: No visible drainage around ET tube (adequate suctioning by nursing staff), moist mucous membranes. NECK: Trachea midline, full range of motion, supple. LUNGS: Breath sounds equal, clear to auscultation bilaterally, slightly diminished and coarse over b/l bases anteriorly. Pt using abdominal/intercostal muscles to pull breaths. HEART: Regular rate and rhythm, S1, S2 without murmur, rub or gallop. ABDOMEN: Soft, nontender, nondistended, normoactive bowel sounds, no guarding, no rebound, no hepatosplenomegaly, no masses. EXTREMITIES: 2+ pulses, warm, well-perfused, no edema. NEUROLOGICAL: Pt not ambulatory, cannot assess CN function. Pt can grab my hand on command, and opens eyes to verbal calling. PSYCH: Not able to assess mood or responses. Pt minimally responsive. SKIN: Warm, dry, normal turgor, no rashes or lesions noted. I/O: 1420/800 via sotelo catheter. Ventilator settings: TV 400, PEEP 5, RR 16, FIO2 40. Laboratory Results - last 24 hr 03/24/18 03/24/18 05:30 05:30 WBC 7.4 RBC 3.43 L Hgb 10.0 L Hct 28.9 L D MCV 84.3 MCH 29.2 MCHC 34.6 RDW 13.0 Plt Count 296 MPV 6.9 L Sodium 138 Potassium 3.5 Chloride 103 Carbon Dioxide 25 Anion Gap 10 BUN 22 H Creatinine 1.3 Creat Clearance w eGFR 52.22 Random Glucose 173 H D Calcium 8.1 L Phosphorus 2.3 L Magnesium 1.6 L Total Bilirubin 0.4 AST 26 D ALT 15 D Alkaline Phosphatase 127 H D Total Protein 5.1 L Albumin 2.0 L Active Medications Generic Name Dose Route Start Last Admin Trade Name Freq PRN Reason Stop Dose Admin Acetaminophen 1,000 mg 03/18/18 15:11 03/19/18 11:52 Ofirmev Injection - IVPB 1,000 mg Q6H PRN Administration PAIN LEVEL 6-10 Atorvastatin Calcium 10 mg 03/21/18 22:00 03/23/18 21:08 Lipitor - NGT 10 mg HS KRISTY Administration Brimonidine Tartrate 1 drop 03/18/18 10:00 03/23/18 09:45 Alphagan 0.2% - OD 1 drop DAILY KRISTY Administration Chlorhexidine Gluconate 1 applic 03/17/18 22:00 03/23/18 21:08 Hibiclens For Decolonization - TP 1 applic HS KRISTY Administration Chlorhexidine Gluconate 15 ml 03/19/18 22:00 03/24/18 00:00 Peridex - MM 15 ml BID KRISTY Administration Potassium Chloride/Sodium Chloride 20 meq in 1,000 mls @ 100 mls/hr 03/20/18 11:30 03/24/18 05:10 1/2ns+20meq Kcl IV 100 mls/hr ASDIR KRISTY Administration Ceftriaxone Sodium 1 gm/ 50 mls @ 100 mls/hr 03/23/18 10:00 03/23/18 09:46 Dextrose IVPB 100 mls/hr DAILY KRISTY Administration Protocol Levetiracetam 1,000 mg 03/19/18 10:00 03/23/18 21:08 Keppra Injection - IVPB 1,000 mg BID KRISTY Administration Levothyroxine Sodium 25 mcg 03/19/18 07:45 03/24/18 06:06 Synthroid Injection - IVPUSH 25 mcg 0700 KRISTY Administration Metoprolol Tartrate 25 mg 03/21/18 11:30 03/23/18 21:08 Lopressor - NGT 25 mg BID KRISTY Administration Pantoprazole Sodium 40 mg 03/17/18 10:00 08/26/18 09:45 Protonix Iv IVPUSH 40 mg DAILY KRISTY Administration Phenytoin Sodium 100 mg 03/23/18 18:00 03/23/18 17:42 Dilantin Injection - IVPB 100 mg BID KRISTY Administration Timolol Maleate 1 drop 03/18/18 10:00 03/23/18 09:46 Timoptic 0.5% OD 1 drop DAILY KRISTY Administration Valsartan 80 mg 03/24/18 10:00 Diovan - NGT DAILY KRISTY ASSESSMENT/PLAN: 87 yo M with PMH of 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 1. Neuro Acute on chronic subdural hematoma. Repeat head CT on 03/23 showed no acute changes to 03/20 (continued L frontal parietal hematoma). Sz controlled with Dilantion 100 mg BID, Keppra 1000 mg BID 2. Cardio CAD with increased troponin - likely due to demand ischemia HTN - continue lipitor 10 mg Qday and Lopressor 25 mg BID Atypical paroxysmal A Flutter - no anti-coagulation due to hematoma 3. Respiratory ARF 2/2 to aspiration pneumonia. No WBC, initial lactic acid WNL. Cultures grew "yeast-like organism". ID following (Dr. Prasad). On Ceftriaxone 1 gm, day 2. Chest x-ray today showed continued bi-basilar infiltrates. Will continue on ventilator as pt continues to have minimal interaction and pneumonia not resolved. Attempted mechanical weaning with 10 pressure support CPAP and pt showed decreased respiratory rate. Will continue weaning challenges in SIMV mode. Daily sedation vacations, as pt hemodynamically stable. 4. Renal CKD, Creatinine and BUN WNL today. 5. GI Past AAA repair. No issues this visit. 6.. Nutrition/Electrolytes Order Processing Manager provided recommendations to advance pt feeds. Orders placed. Will monitor Mg and Phos repleted this morning. Will monitor. Problem List - Problems (1) History of craniotomy Code(s): Z98.890 - OTHER SPECIFIED POSTPROCEDURAL STATES (2) Cerebrovascular accident (CVA) Code(s): I63.9 - CEREBRAL INFARCTION, UNSPECIFIED (3) Demand ischemia Code(s): I24.8 - OTHER FORMS OF ACUTE ISCHEMIC HEART DISEASE (4) Atrial flutter Code(s): I48.92 - UNSPECIFIED ATRIAL FLUTTER Qualifiers: Atrial flutter type: atypical Qualified Code(s): I48.4 - Atypical atrial flutter (5) Electrolyte abnormality Code(s): E87.8 - OTH DISORDERS OF ELECTROLYTE AND FLUID BALANCE, NEC (6) Focal seizures Code(s): R56.9 - UNSPECIFIED CONVULSIONS (7) History of endovascular stent graft for abdominal aortic aneurysm (AAA) Code(s): Z95.828 - PRESENCE OF OTHER VASCULAR IMPLANTS AND GRAFTS Visit type - Emergency Visit Emergency Visit: Yes ED Registration Date: 03/16/18 Care time: The patient presented to the Emergency Department on the above date and was hospitalized for further evaluation of their emergent condition. - New Patient This patient is new to me today: Yes Date on this admission: 03/24/18 - Critical Care Critical Care patient: Yes Total Critical Care Time (in minutes): 40 Critical Care Statement: The care of this patient involved high complexity decision making to prevent further life threatening deterioration of the patient 's condition and/or to evaluate & treat vital organ system(s) failure or risk of failure. - Discharge Referral Referred to [facility] Yes
--- NOTE | 2018-03-24 09:59 | PN ---
Progress Note (short form) - Note Progress Note: 87 year old male had seizure after subdural hematoma evacuation .He initially came from [place] for mental status change. He has history of craniotomy and evacuation of subdural hematoma on February [address] Rad Wilson. Patient under went repeat craniotectomy and hematoma evacuation. SUBJECTIVE : He seems to be more alert and no seizure, no fever and responding to verbal stimuli and his name. Neurological Examinatoin Intuabted and off sedation and not waking up He has right sided facial twitching seen eye are conjugate deviated to right side pupils are small and left side there is eivdence of old surgery ? glaucoma He is off sedation and now responding to painful stimuli no response to verbal stimuli CT scan on Agust seems to be unchanged Assessment- 1. Acute on chronic subdural , Patient has been clinically stable and ct head is unchanged. Advise to continue both dilantin and keppra for now , advice Neurosurgery follow up 2. Focal seizure secondary to subdural and history of craniotectomy twice , no seizure now and he is more alert and reponding to verbal stimuli Overall Prognosis is guarded - feel free to call , if any question Thanking you os much Jerardo Stokes MD
[2018-03-24] MEDS: PANTOPRAZOLE SODIUM 40 MG VIAL IVPUSH SCH (10:03)
[2018-03-24] MEDS: PHENYTOIN SODIUM 100 MG/2 ML VIAL IVPB SCH ×2 (10:04→23:28)
[2018-03-24] MEDS: CEFTRIAXONE 1 GM in DEXTROSE 5%-WATER - 50 ML IVPB SCH (10:04)
[2018-03-24] MEDS: VALSARTAN 80 MG TABLET (UD) NGT SCH (10:05)
[2018-03-24] MEDS: METOPROLOL TARTRATE 25 MG TABLET (FP) NGT SCH ×2 (10:05→23:15)
[2018-03-24] MEDS: levETIRAcetam 500 MG/5 ML INJECTION VIAL IVPB SCH ×2 (10:05→23:14)
[2018-03-24] MEDS: CHLORHEXIDINE GLUCONATE 0.12% 15ML CUP MM SCH ×3 (10:06→23:15)
[2018-03-24] MEDS: BRIMONIDINE TARTRATE 0.2% OPHTHALMIC 5 ML BOTTLE OD SCH (10:15)
[2018-03-24] MEDS ORDERED: PT OWN MED DRAWER 7, Y5N ONE ×2 (10:18→23:17)
[2018-03-24] MEDS: TIMOLOL 0.5% OPHTHALMIC SOL 5 ML BOTTLE OD SCH (10:20)
--- NOTE | 2018-03-24 10:37 | PN ---
Progress Note (short form) - Note Progress Note: remains intubated off sedation, more responsive Vital Signs Period Temp Pulse Resp BP Sys/Michel Pulse Ox Last 24 Hr 98 F-98.7 F 63-82 16-18 127-157/56-73 99-100 cor-rrr lungs clear abd soft,nt ext no edema CBC, BMP 03/24/18 05:30 03/24/18 05:30 Microbiology 03/19/18 13:05 Blood - Peripheral Venous Blood Culture - Preliminary NO GROWTH OBTAINED AFTER 96 HOURS, INCUBATION TO CONTINUE FOR 1 DAYS. 03/19/18 12:48 Blood - Peripheral Venous Blood Culture - Preliminary NO GROWTH OBTAINED AFTER 96 HOURS, INCUBATION TO CONTINUE FOR 1 DAYS. 03/19/18 17:15 Sputum - Endotrachea Suction/Ventilator Gram Stain - Final 03/19/18 17:15 Sputum - Endotrachea Suction/Ventilator Sputum Culture - Final Yeast Like Organism a/p respiratory failure HAP-zosyn day #3 recurrent subdural hematoma seizures malinda/ckd electrolyte abnl wbc trending down, cxray unchanged sputum culture no pseudomonas, will de-escalate to ceftriaxone management of subdural per NS antibioitc day #4 would finish 7 days please call back if needed Problem List - Problems (1) Pneumonia Code(s): J18.9 - PNEUMONIA, UNSPECIFIED ORGANISM Qualifiers: Pneumonia type: aspiration pneumonia (2) Subdural hemorrhage Code(s): I62.00 - NONTRAUMATIC SUBDURAL HEMORRHAGE, UNSPECIFIED (3) Focal seizures Code(s): R56.9 - UNSPECIFIED CONVULSIONS (4) MALINDA (acute kidney injury) Code(s): N17.9 - ACUTE KIDNEY FAILURE, UNSPECIFIED (5) Electrolyte abnormality Code(s): E87.8 - OTH DISORDERS OF ELECTROLYTE AND FLUID BALANCE, NEC
--- NOTE | 2018-03-24 11:29 | PN ---
Progress Note (short form) - Note Progress Note: Pt seen/ examined in icu remains intubated off sedation opens eyes afebrile all f/u noted/ appreciated Vital Signs Temp 98.9 F 03/24/18 10:00 Pulse 64 03/24/18 11:13 Resp 14 03/24/18 11:13 BP 173/88 03/24/18 10:00 Pulse Ox 100 03/24/18 11:15 Intake & Output 03/23/18 03/23/18 03/24/18 11:59 23:59 11:59 Intake Total 1768 624 1620 Output Total 500 600 800 Balance 1020 -500 620 Weight 121 lb 1.6 oz 125 lb 10.616 oz Intake: IV 1200 1200 1/2NS+20MEQ KCL 20 meq In 1200 1,000 ml @ 100 mls/hr IV ASDIR KRISTY Rx#: [id number] saline lock 1200 IVPB 200 100 Tube Feeding 120 120 Tube Irrigant 100 Output: Urine 500 600 800 Void 500 600 800 Other: Voiding Method External Catheter External Catheter Body Mass Index (BMI) 18.3 Weight Measurement Method Built in Bedscale Built in Bedscale Active Medications Acetaminophen (Ofirmev Injection -) 1,000 mg IVPB Q6H PRN PRN Reason: PAIN LEVEL 6-10 Last Admin: 03/19/18 11:52 Dose: 1,000 mg Atorvastatin Calcium (Lipitor -) 10 mg NGT HS [facility] Last Admin: 03/23/18 21:08 Dose: 10 mg Brimonidine Tartrate (Alphagan 0.2% -) 1 drop OD DAILY KRISTY Last Admin: 03/24/18 10:15 Dose: 1 drop Chlorhexidine Gluconate (Hibiclens For Decolonization -) 1 applic TP HS [facility] Last Admin: 03/23/18 21:08 Dose: 1 applic Chlorhexidine Gluconate (Peridex -) 15 ml MM BID KRISTY Last Admin: 03/24/18 10:06 Dose: 15 ml Potassium Chloride/Sodium Chloride (1/2ns+20meq Kcl) 20 meq in 1,000 mls @ 100 mls/hr IV ASDIR KRISTY Last Admin: 03/24/18 05:10 Dose: 100 mls/hr Ceftriaxone Sodium 1 gm/ (Dextrose) 50 mls @ 100 mls/hr IVPB DAILY [facility]; Protocol Last Admin: 03/24/18 10:04 Dose: 100 mls/hr Levetiracetam (Keppra Injection -) 1,000 mg IVPB BID [facility] Last Admin: 03/24/18 10:05 Dose: 1,000 mg Levothyroxine Sodium (Synthroid Injection -) 25 mcg IVPUSH 0700 [facility] Last Admin: 03/24/18 06:06 Dose: 25 mcg Metoprolol Tartrate (Lopressor -) 25 mg NGT BID [facility] Last Admin: 03/24/18 10:05 Dose: 25 mg Pantoprazole Sodium (Protonix Iv) 40 mg IVPUSH DAILY [facility] Last Admin: 03/24/18 10:03 Dose: 40 mg Phenytoin Sodium (Dilantin Injection -) 100 mg IVPB BID [facility] Last Admin: 03/24/18 10:04 Dose: 100 mg Timolol Maleate (Timoptic 0.5%) 1 drop OD DAILY [facility] Last Admin: 03/24/18 10:20 Dose: 1 drop Valsartan (Diovan -) 80 mg NGT DAILY [facility] Last Admin: 03/24/18 10:05 Dose: 80 mg CBC, BMP 03/24/18 05:30 03/24/18 05:30 Microbiology 03/19/18 13:05 Blood Culture - Preliminary Blood - Peripheral Venous NO GROWTH OBTAINED AFTER 96 HOURS, INCUBATION TO CONTINUE FOR 1 DAYS. 03/19/18 12:48 Blood Culture - Preliminary Blood - Peripheral Venous NO GROWTH OBTAINED AFTER 96 HOURS, INCUBATION TO CONTINUE FOR [address] head-- no change. cxr - Reviewed PHYSICAL EXAM Intubated/drowsy- opens eyes cvs-s1s2 lungs-bilateral breath sounds abd-soft,nt, LE- no edema A/P overall stable continue present care abx weaning as tolerated- started on feeding discussed with icu team/ nursing staff Will follow Problem List - Problems (1) HTN (hypertension) Code(s): I10 - ESSENTIAL (PRIMARY) HYPERTENSION Qualifiers: Hypertension type: essential hypertension Qualified Code(s): I10 - Essential (primary) hypertension (2) Hypothyroid Code(s): E03.9 - HYPOTHYROIDISM, UNSPECIFIED Qualifiers: Hypothyroidism type: other Qualified Code(s): E03.8 - Other specified hypothyroidism (3) S/P craniotomy Code(s): Z98.890 - OTHER SPECIFIED POSTPROCEDURAL STATES (4) Subdural hemorrhage Code(s): I62.00 - NONTRAUMATIC SUBDURAL HEMORRHAGE, UNSPECIFIED (5) Hypokalemia Code(s): E87.6 - HYPOKALEMIA
--- NOTE | 2018-03-24 13:05 | PN ---
Teaching Attending Note Name of Resident: China Landry ATTENDING PHYSICIAN STATEMENT I saw and evaluated the patient. I reviewed the resident's note and discussed the case with the resident. I agree with the resident's findings and plan as documented. SUBJECTIVE: Pt seen and examined in the ICU. Remains intubated, somnolent off sedation. Opens eyes but not following commands. OBJECTIVE: Vital Signs Period Temp Pulse Resp BP Sys/Michel Pulse Ox Last 24 Hr 98 F-98.9 F 60-82 12-19 127-173/56-88 99-100 Intake & Output 03/21/18 03/22/18 03/23/18 03/24/18 23:59 23:59 23:59 23:59 Intake Total 4138 2813 1620 1420 Output Total 350 1600 1100 800 Balance 3788 1213 520 620 Weight 51.8 kg 55.6 kg 54.93 kg 57 kg Gen: intubated, somnolent Heart: RRR Lung: decreased breath sounds at the bases Abd: soft, nontender Ext: no edema CBC, BMP 03/24/18 05:30 03/24/18 05:30 Active Medications Acetaminophen (Ofirmev Injection -) 1,000 mg IVPB Q6H PRN PRN Reason: PAIN LEVEL 6-10 Last Admin: 03/19/18 11:52 Dose: 1,000 mg Atorvastatin Calcium (Lipitor -) 10 mg NGT HS [facility] Last Admin: 03/23/18 21:08 Dose: 10 mg Brimonidine Tartrate (Alphagan 0.2% -) 1 drop OD DAILY KRIST[facility] Last Admin: 03/24/18 10:15 Dose: 1 drop Chlorhexidine Gluconate (Hibiclens For Decolonization -) 1 applic TP HS [facility] Last Admin: 03/23/18 21:08 Dose: 1 applic Chlorhexidine Gluconate (Peridex -) 15 ml MM BID [facility]ST[facility] Last Admin: 03/24/18 10:06 Dose: 15 ml Potassium Chloride/Sodium Chloride (1/2ns+20meq Kcl) 20 meq in 1,000 mls @ 100 mls/hr IV ASDIR KRISTY Last Admin: 03/24/18 05:10 Dose: 100 mls/hr Ceftriaxone Sodium 1 gm/ (Dextrose) 50 mls @ 100 mls/hr IVPB DAILY [facility]; Protocol Last Admin: 03/24/18 10:04 Dose: 100 mls/hr Levetiracetam (Keppra Injection -) 1,000 mg IVPB BID [facility] Last Admin: 03/24/18 10:05 Dose: 1,000 mg Levothyroxine Sodium (Synthroid Injection -) 25 mcg IVPUSH 0700 [facility] Last Admin: 03/24/18 06:06 Dose: 25 mcg Metoprolol Tartrate (Lopressor -) 25 mg NGT BID [facility] Last Admin: 03/24/18 10:05 Dose: 25 mg Pantoprazole Sodium (Protonix Iv) 40 mg IVPUSH DAILY [facility] Last Admin: 03/24/18 10:03 Dose: 40 mg Phenytoin Sodium (Dilantin Injection -) 100 mg IVPB BID [facility] Last Admin: 03/24/18 10:04 Dose: 100 mg Timolol Maleate (Timoptic 0.5%) 1 drop OD DAILY [facility] Last Admin: 03/24/18 10:20 Dose: 1 drop Valsartan (Diovan -) 80 mg NGT DAILY [facility] Last Admin: 03/24/18 10:05 Dose: 80 mg ASSESSMENT AND PLAN: Acute Respiratory Failure Pneumonia likely Aspiration Sepsis Acute on Chronic Subdural Hematoma s/p [place] Hole/Evacuation of Hematoma Seizures +Troponins likely Demand Ischemia Atrial Fibrillation Acute Kidney Injury HTN CKD Hypothyroidism - continue antibiotics - rate control - defer anticoagulation due to subdural hematoma - d/c IVF - monitor urine output, creatinine - continue antiepileptics per neuro - hold sedation to assess mental status - spontaneous breathing trials as tolerated but would not extubate until mental status improved - enteral feeds - mechanical DVT prophylaxis - continue ICU monitoring - prognosis guarded critical care time spent in reviewing chart, evaluating patient and formulating plan 35 min
[2018-03-24] MEDS: ATORVASTATIN CA 10 MG TABLET (FP) NGT SCH (23:15)
[2018-03-24] MEDS: CHLORHEXIDINE GLUCONATE 4% CLEANSER FOR DECOLONIZATION TP SCH (23:29)
[2018-03-25] MEDS ORDERED: PT OWN MED DRAWER 7, Y5N ONE ×2 (06:20→17:05)
[2018-03-25] MEDS: LEVOTHYROXINE SODIUM 100 MCG VIAL IVPUSH SCH (06:34)
--- NOTE | 2018-03-25 06:41 | PN ---
Progress Note (short form) - Note Progress Note: Chief complaint: Events noted, notes reviewed, remains intubated not responsive to verbal commands but responsive to deep tactile stimuli-opening eyes/grimacing , sinus rhythm is noted/persists History of Present Illness: Seen and examined in the ICU. Events noted, notes reviewed, remains intubated not responsive to verbal commands but responsive to deep tactile stimuli- opening eyes/grimacing, sinus rhythm is noted/persists Blood pressure control improved Echocardiography dated 03/20/2018 revealed mild cLVH, normal LVEF 65%, normal RV size and function, mild LAE, mild MR, AR and moderate TR Allergies: NKA. Medical therapy currently includes: Current Medications Acetaminophen (Ofirmev Injection -) 1,000 mg IVPB Q6H PRN PRN Reason: PAIN LEVEL 6-10 Last Admin: 03/19/18 11:52 Dose: 1,000 mg Atorvastatin Calcium (Lipitor -) 10 mg NGT HS [facility] Last Admin: 03/24/18 23:15 Dose: 10 mg Brimonidine Tartrate (Alphagan 0.2% -) 1 drop OD DAILY [facility]RIST[facility] Last Admin: 03/24/18 10:15 Dose: 1 drop Chlorhexidine Gluconate (Hibiclens For Decolonization -) 1 applic TP HS [facility] Last Admin: 03/24/18 23:29 Dose: 1 applic Chlorhexidine Gluconate (Peridex -) 15 ml MM BID [facility] Last Admin: 03/24/18 23:15 Dose: 15 ml Ceftriaxone Sodium 1 gm/ (Dextrose) 50 mls @ 100 mls/hr IVPB DAILY [facility]; Protocol Last Admin: 03/24/18 10:04 Dose: 100 mls/hr Levetiracetam (Keppra Injection -) 1,000 mg IVPB BID [facility] Last Admin: 03/24/18 23:14 Dose: 1,000 mg Levothyroxine Sodium (Synthroid Injection -) 25 mcg IVPUSH 0700 [facility] Last Admin: 03/24/18 06:06 Dose: 25 mcg Metoprolol Tartrate (Lopressor -) 25 mg NGT BID [facility] Last Admin: 03/24/18 23:15 Dose: 25 mg Pantoprazole Sodium (Protonix Iv) 40 mg IVPUSH DAILY [facility] Last Admin: 03/24/18 10:03 Dose: 40 mg Phenytoin Sodium (Dilantin Injection -) 100 mg IVPB BID [facility] Last Admin: 03/24/18 23:28 Dose: 100 mg Timolol Maleate (Timoptic 0.5%) 1 drop OD DAILY [facility] Last Admin: 03/24/18 10:20 Dose: 1 drop Valsartan (Diovan -) 80 mg NGT DAILY [facility] Last Admin: 03/24/18 10:05 Dose: 80 mg Review of Systems: Unable to Obtain Physical Examination: Vital Signs: Last Vital Signs Temp Pulse Resp BP Pulse Ox 98 F 78 16 125/68 98 03/25/18 02:00 03/25/18 04:00 03/25/18 04:46 03/25/18 04:00 03/24/18 20:36 Intake & Output 03/22/18 03/23/18 03/24/18 03/25/18 23:59 23:59 23:59 23:59 Intake Total 2813 1620 2500 200 Output Total 1600 1100 1400 500 Balance 4091 559 4573 -300 Weight 122 lb 9.232 oz 121 lb 1.6 oz 125 lb 10.616 oz 131 lb 2 oz Neck: Supple negative JVD no bruit appreciated Heart: S1 and S2 Regular Rate and Rhythm Lungs: Diminished Breath Sounds at the Bases Bilateral Scattered Rhonchi Abdomen: Soft benign normoactive bowel sounds Extremities: Negative edema Lab Data: Blood test pending from this AM ASSESSMENT: 1. Acute Respiratory Failure referable to probable aspiration pneumonia 2. Paroxysmal Atypical atrial flutter [id number] score of 5 currently on no A/ C related to subdural hematoma 3. CAD post CABG angina pectoris demand ischemic injury 4. Diastolic LV dysfunction with class 0-I NYHA classification LV failure, compensated/euvolemic 5. Acute on Chronic Subdural Hematoma post [place] Hole/Evacuation of Hematoma 6. Seizure disorder 7. HTN 8. Hypercholesterolemia 9. AAA post EVAR 10. Hypothyroidism 11. Acute on chronic kidney Injury 12. Anemia PLAN: 1. Continue Lopressor 2. Continue Diovan 3. Continue Lipitor 4. Defer anticoagulation for atrial flutter with [id number] score of 5 due to subdural hematoma 4. Antibiotics as per primary team 5. Continue anti-epileptics per neuro service 6. Ventilator management as per the critical care team, to attempt weaning Lanre Riggs M.D.
[2018-03-25 06:52] LABS: BASO % 0.3 % (0-2.0); EOS % 7.7 % (0-4.5); HEMATOCRIT 27.1 % (35.4-49); HEMOGLOBIN 9.3 GM/dL (11.7-16.9); LYMPH % 17.3 % (8-40); MCH 28.9 pg (25.7-33.7); MCHC 34.4 g/dl (32.0-35.9); MEAN CELL VOLUME 83.9 fl (80-96); MEAN PLT VOLUME 6.9 fl (7.5-11.1); MONO % 16.3 % (3.8-10.2); NEUT % 58.4 % (42.8-82.8); PLATELET COUNT 310 K/MM3 (134-434); RBC 3.23 M/mm3 (4.00-5.60); RDW 13.2 % (11.9-15.9)
[2018-03-25 07:12] LABS: ANION GAP 7 MMOL/L (8-16); BLOOD UREA NITROGEN 19 mg/dL (7-18); CHLORIDE 102 mmol/L (98-107); CO2 28 mmol/L (21-32); CREATININE 1.4 mg/dL (0.7-1.3); GLUCOSE,RANDOM 149 mg/dL (74-106); MAGNESIUM 1.7 mg/dL (1.8-2.4); PHOSPHOROUS 2.1 mg/dL (2.5-4.9); POTASSIUM 3.1 mmol/L (3.5-5.1); SGOT/AST 24 U/L (15-37); SGPT/ALT 14 U/L (12-78); SODIUM 137 mmol/L (136-145)
[2018-03-25 07:15] LABS: ALK PHOS 114 U/L (45-117); BILIRUBIN,TOTAL 0.2 mg/dL (0.2-1.0)
--- NOTE | 2018-03-25 07:55 | PN ---
Physical Exam: SUBJECTIVE: Patient seen and examined this AM. There was no seizure activity overnight, and pt tolerated the SIMV mode without sedation or desaturations. Feeds were advanced yesterday per clinical support associate directions. Pt has been in NSR, no paroxysmal A Flutter noted. OBJECTIVE: Vital Signs Period Temp Pulse Resp BP Sys/Michel Pulse Ox Last 24 Hr 98 F-98.9 F 58-84 9-19 114-173/53-88 98-100 GENERAL: The patient opens eyes to tactile stimulation. Pt producing 13-14 respirations/min, sat 99%. Vitals have been stable, no acute distress. HEAD: Clean and intact dressing over L parietal/occiput craniotomy site. EYES: PERRL, extraocular movements intact, sclera anicteric, conjunctiva clear. No ptosis. ENT: Ears normal, nares patent, moist mucous membranes. No drainage or erythema surrounding tube. Continues to have poor cough reflex. NECK: Trachea midline, full range of motion, supple. LUNGS: Breath sounds equal, clear to auscultation bilaterally (improved at bases from yesterday), no wheezes, no crackles, no accessory muscle use. HEART: Regular rate and rhythm, S1, S2 without murmur, rub or gallop. ABDOMEN: Soft, nontender, nondistended, normoactive bowel sounds, no guarding, no rebound, no hepatosplenomegaly, no masses. EXTREMITIES: 2+ pulses, warm, well-perfused, no edema. NEUROLOGICAL: Alert to tactile stimulation. Did not perform simple command ( squeeze hand) on my exam today. Gait not observed. PSYCH: Mood/affect undetermined as pt is non-verbal and intubated. SKIN: Warm, dry, normal turgor, no rashes or lesions noted. No pitting edema. SCD in place. I/O: 580/500. Drained 300 Penny, yellow urine during exam. Vent: Changed to CPAP; TV 400, PEEP 5, PSV 8, O2 40% Laboratory Results - last 24 hr 03/25/18 03/25/18 05:30 05:30 WBC 7.0 RBC 3.23 L Hgb 9.3 L Hct 27.1 L MCV 83.9 MCH 28.9 MCHC 34.4 RDW 13.2 Plt Count 310 MPV 6.9 L Absolute Neuts (auto) 4.1 Neutrophils % 58.4 D Lymphocytes % 17.3 D Monocytes % 16.3 H D Eosinophils % 7.7 H Basophils % 0.3 Nucleated RBC % 0 Sodium 137 Potassium 3.1 L Chloride 102 Carbon Dioxide 28 Anion Gap 7 L BUN 19 H Creatinine 1.4 H Creat Clearance w eGFR 47.94 Random Glucose 149 H Calcium 8.0 L Phosphorus 2.1 L Magnesium 1.7 L Total Bilirubin 0.2 AST 24 ALT 14 Alkaline Phosphatase 114 D Total Protein 5.0 L Albumin 2.0 L Active Medications Generic Name Dose Route Start Last Admin Trade Name Freq PRN Reason Stop Dose Admin Acetaminophen 1,000 mg 03/18/18 15:11 03/19/18 11:52 Ofirmev Injection - IVPB 1,000 mg Q6H PRN Administration PAIN LEVEL 6-10 Atorvastatin Calcium 10 mg 03/21/18 22:00 03/24/18 23:15 Lipitor - NGT 10 mg HS KRISTY Administration Brimonidine Tartrate 1 drop 03/18/18 10:00 03/24/18 10:15 Alphagan 0.2% - OD 1 drop DAILY KRISTY Administration Chlorhexidine Gluconate 1 applic 03/17/18 22:00 03/24/18 23:29 Hibiclens For Decolonization - TP 1 applic HS KRISTY Administration Chlorhexidine Gluconate 15 ml 03/19/18 22:00 03/24/18 23:15 Peridex - MM 15 ml BID KRISTY Administration Ceftriaxone Sodium 1 gm/ 50 mls @ 100 mls/hr 03/23/18 10:00 03/24/18 10:04 Dextrose IVPB 100 mls/hr DAILY KRISTY Administration Protocol Potassium Chloride 10 meq in 100 mls @ 100 mls/hr 03/25/18 08:00 Potassium Chloride 10 Meq Premix Ivpb - IVPB 03/25/18 08:59 Q60M KRISTY Levetiracetam 1,000 mg 03/19/18 10:00 03/24/18 23:14 Keppra Injection - IVPB 1,000 mg BID KRISTY Administration Levothyroxine Sodium 25 mcg 03/19/18 07:45 03/25/18 06:34 Synthroid Injection - IVPUSH 25 mcg 0700 KRISTY Administration Magnesium Sulfate 1 gm 03/25/18 07:49 Magnesium Sulfate IVPB 03/25/18 07:50 ONCE ONE Metoprolol Tartrate 25 mg 03/21/18 11:30 03/24/18 23:15 Lopressor - NGT 25 mg BID KRISTY Administration Pantoprazole Sodium 40 mg 03/17/18 10:00 03/24/18 10:03 Protonix Iv IVPUSH 40 mg DAILY KRISTY Administration Phenytoin Sodium 100 mg 03/23/18 18:00 03/24/18 23:28 Dilantin Injection - IVPB 100 mg BID KRISTY Administration Potassium Chloride 40 meq 03/25/18 07:47 Potassium Chloride Oral Liquid PO 03/25/18 07:48 ONCE ONE Potassium Phos/Sodium Phos 1 packet 03/25/18 07:50 Phos-Nak Packet - PO 03/25/18 07:51 ONCE ONE Timolol Maleate 1 drop 03/18/18 10:00 03/24/18 10:20 Timoptic 0.5% OD 1 drop DAILY KRISTY Administration Valsartan 80 mg 03/24/18 10:00 03/24/18 10:05 Diovan - NGT 80 mg DAILY KRISTY Administration ASSESSMENT/PLAN: 87 yo M with PMH of 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 1. Neuro Acute on chronic subdural hematoma. Repeat head CT on 03/23 showed no acute changes to 03/20 (continued L frontal parietal hematoma). Focal sz has been controlled with [place] 100 mg BID, Keppra 1000 mg BID 2. Cardio CAD with increased troponin - likely due to demand ischemia HTN - continue lipitor 10 mg Qday and Lopressor 25 mg BID Atypical paroxysmal A Flutter - no anti-coagulation due to hematoma. Pt has been NSR. 3. Respiratory ARF 2/2 to aspiration pneumonia. No WBC, initial lactic acid WNL. Cultures grew "yeast-like organism". ID following (Dr. Prasad). On Ceftriaxone 1 gm, day 3. Chest x-ray today showed continued bi-basilar/patchy infiltrates, no significant changes from 03/24. Will continue on ventilator as pt continues to have minimal interaction and pneumonia not resolved. Pt tolerated SIMV mode, and tolerated CPAP challenge this AM. Will continue on CPAP and monitor. Daily sedation vacations, as pt hemodynamically stable. Pt has not required propofol x2 days. 4. Renal CKD, Creatinine and BUN 19/1.4 today. No intervention. 5. GI Past AAA repair. No issues this visit. 6. Nutrition/Electrolytes [employer] provided recommendations to advance pt feeds. Pt has been receiving feeds (Osmolite, 20 mL/hr, Titrate 58 cc/hr, Target 1400/24 hrs. Mg and Phos repleted this morning (Mg 1.7, Phos 2.1). Will monitor, labs to be re-drawn at 3PM today, and AM tomorrow. Problem List - Problems (1) History of craniotomy Code(s): Z98.890 - OTHER SPECIFIED POSTPROCEDURAL STATES (2) Cerebrovascular accident (CVA) Code(s): I63.9 - CEREBRAL INFARCTION, UNSPECIFIED (3) Demand ischemia Code(s): I24.8 - OTHER FORMS OF ACUTE ISCHEMIC HEART DISEASE (4) Atrial flutter Code(s): I48.92 - UNSPECIFIED ATRIAL FLUTTER Qualifiers: Atrial flutter type: atypical Qualified Code(s): I48.4 - Atypical atrial flutter (5) Electrolyte abnormality Code(s): E87.8 - OTH DISORDERS OF ELECTROLYTE AND FLUID BALANCE, NEC (6) Focal seizures Code(s): R56.9 - UNSPECIFIED CONVULSIONS (7) History of endovascular stent graft for abdominal aortic aneurysm (AAA) Code(s): Z95.828 - PRESENCE OF OTHER VASCULAR IMPLANTS AND GRAFTS Visit type - Emergency Visit Emergency Visit: Yes ED Registration Date: 03/16/18 Care time: The patient presented to the Emergency Department on the above date and was hospitalized for further evaluation of their emergent condition. - New Patient This patient is new to me today: No - Critical Care Critical Care patient: Yes Total Critical Care Time (in minutes): 30 Critical Care Statement: The care of this patient involved high complexity decision making to prevent further life threatening deterioration of the patient 's condition and/or to evaluate & treat vital organ system(s) failure or risk of failure. - Discharge Referral Referred to [facility] Med [facility] Yes
[2018-03-25] MEDS ORDERED: KCL 10 MEQ IVPB 10 MEQ/100 ML INFUS.BAG IVPB SCH (08:30)
[2018-03-25] MEDS ORDERED: POTASSIUM CHLORIDE ORAL LIQUID 20 MEQ/15 ML PO ONE (08:30)
[2018-03-25] MEDS ORDERED: MAGNESIUM 1GM/D5W 100ML - 100 ML IVPB IVPB ONE (08:30)
[2018-03-25] MEDS ORDERED: NAPH,MB-DB/K PH,MBDB POWDER PACKET PO ONE (08:30)
[2018-03-25] MEDS ORDERED: cefTRIAXone SODIUM 1 GM VIAL ONE (08:52)
[2018-03-25] MEDS ORDERED: DEXTROSE 5%-WATER - 50 ML IVPB ONE (08:52)
--- NOTE | 2018-03-25 09:28 | PN ---
Progress Note (short form) - Note Progress Note: pt seen / examined in icu Remains intubated- SIMV dont follow commands Opens eyes. Afebrile Vital Signs Temp 98.3 F 03/25/18 08:00 Pulse 78 03/25/18 08:00 Resp 12 03/25/18 08:38 BP 143/77 03/25/18 08:00 Pulse Ox 100 03/25/18 08:38 Intake & Output 03/24/18 03/24/18 03/25/18 11:59 23:59 11:59 Intake Total 1420 1080 580 Output Total 800 600 500 Balance 620 480 80 Weight 125 lb 10.616 oz 131 lb 2 oz Intake: IV 1200 400 saline lock 1200 400 IVPB 450 200 Tube Feeding 120 130 260 Tube Irrigant 100 100 120 Output: Urine 800 600 500 Void 800 600 500 Other: Voiding Method External Catheter External Catheter External Catheter Bowel Movement No No Weight Measurement Method Built in [facility] Active Medications Acetaminophen (Ofirmev Injection -) 1,000 mg IVPB Q6H PRN PRN Reason: PAIN LEVEL 6-10 Last Admin: 03/19/18 11:52 Dose: 1,000 mg Atorvastatin Calcium (Lipitor -) 10 mg NGT HS [facility] Last Admin: 03/24/18 23:15 Dose: 10 mg Brimonidine Tartrate (Alphagan 0.2% -) 1 drop OD DAILY [facility] Last Admin: 03/24/18 10:15 Dose: 1 drop Chlorhexidine Gluconate (Hibiclens For Decolonization -) 1 applic TP HS [facility] Last Admin: 03/24/18 23:29 Dose: 1 applic Chlorhexidine Gluconate (Peridex -) 15 ml MM BID [facility] Last Admin: 03/24/18 23:15 Dose: 15 ml Ceftriaxone Sodium 1 gm/ (Dextrose) 50 mls @ 100 mls/hr IVPB DAILY [facility]; Protocol Last Admin: 03/24/18 10:04 Dose: 100 mls/hr Potassium Chloride (Potassium Chloride 10 Meq Premix Ivpb -) 10 meq in 100 mls @ 100 mls/hr IVPB Q60M [facility] Stop: 03/25/18 09:29 Levetiracetam (Keppra Injection -) 1,000 mg IVPB BID [facility] Last Admin: 03/24/18 23:14 Dose: 1,000 mg Levothyroxine Sodium (Synthroid Injection -) 25 mcg IVPUSH 0700 [facility] Last Admin: 03/25/18 06:34 Dose: 25 mcg Metoprolol Tartrate (Lopressor -) 25 mg NGT BID [facility] Last Admin: 03/24/18 23:15 Dose: 25 mg Pantoprazole Sodium (Protonix Iv) 40 mg IVPUSH DAILY [facility] Last Admin: 03/24/18 10:03 Dose: 40 mg Phenytoin Sodium (Dilantin Injection -) 100 mg IVPB BID [facility] Last Admin: 03/24/18 23:28 Dose: 100 mg Timolol Maleate (Timoptic 0.5%) 1 drop OD DAILY [facility] Last Admin: 03/24/18 10:20 Dose: 1 drop Valsartan (Diovan -) 80 mg NGT DAILY [facility] Last Admin: 03/24/18 10:05 Dose: 80 mg CBC, BMP 03/25/18 05:30 03/25/18 05:30 cxr- no change PHYSICAL EXAM Intubated/drowsy- opens eyes cvs-s1s2 lungs-bilateral breath sounds-- diminished at bases abd-soft,nt,bs + LE- no edema. A/P Condition same continue present care abx weaning as tolerated- fix electrolytes will follow discussed with icu team. Problem List - Problems (1) HTN (hypertension) Code(s): I10 - ESSENTIAL (PRIMARY) HYPERTENSION Qualifiers: Hypertension type: essential hypertension Qualified Code(s): I10 - Essential (primary) hypertension (2) Hypothyroid Code(s): E03.9 - HYPOTHYROIDISM, UNSPECIFIED Qualifiers: Hypothyroidism type: other Qualified Code(s): E03.8 - Other specified hypothyroidism (3) S/P craniotomy Code(s): Z98.890 - OTHER SPECIFIED POSTPROCEDURAL STATES (4) Subdural hemorrhage Code(s): I62.00 - NONTRAUMATIC SUBDURAL HEMORRHAGE, UNSPECIFIED (5) Hypokalemia Code(s): E87.6 - HYPOKALEMIA
--- NOTE | 2018-03-25 10:56 | PN ---
Progress Note (short form) - Note Progress Note: 87 year old male had seizure after subdural hematoma evacuation .He initially came from [place] for mental status change. He has history of craniotomy and evacuation of subdural hematoma on February [address] Rad Wilson. Patient under went repeat craniotectomy and hematoma evacuation. SUBJECTIVE : condition unchanged, opens eye spontaneously and there is no focal seizure, not following command Neurological Examinatoin Intuabted and off sedation and not waking up no twitching was seen pupils are small and left side there is eivdence of old surgery ? glaucoma withdraws to painful stimuli CT scan on Agust 26 seems to be unchanged Assessment- 1. Acute on chronic subdural , Patient has been clinically stable and ct head is unchanged. Advise to continue both dilantin and keppra for now . 2. 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
[2018-03-25] MEDS: CEFTRIAXONE 1 GM in DEXTROSE 5%-WATER - 50 ML IVPB SCH (11:10)
[2018-03-25] MEDS: PANTOPRAZOLE SODIUM 40 MG VIAL IVPUSH SCH (11:10)
[2018-03-25] MEDS: CHLORHEXIDINE GLUCONATE 0.12% 15ML CUP MM SCH ×2 (11:10→21:08)
[2018-03-25] MEDS: METOPROLOL TARTRATE 25 MG TABLET (FP) NGT SCH ×2 (11:11→21:07)
[2018-03-25] MEDS: VALSARTAN 80 MG TABLET (UD) NGT SCH (11:11)
[2018-03-25] MEDS: levETIRAcetam 500 MG/5 ML INJECTION VIAL IVPB SCH ×2 (11:12→21:07)
[2018-03-25] MEDS: PHENYTOIN SODIUM 100 MG/2 ML VIAL IVPB SCH ×2 (11:12→21:07)
[2018-03-25] MEDS: BRIMONIDINE TARTRATE 0.2% OPHTHALMIC 5 ML BOTTLE OD SCH (11:13)
[2018-03-25] MEDS: TIMOLOL 0.5% OPHTHALMIC SOL 5 ML BOTTLE OD SCH (11:13)
[2018-03-25] MEDS: KCL 10 MEQ IVPB 10 MEQ/100 ML INFUS.BAG IVPB SCH ×2 (11:19→15:13)
--- NOTE | 2018-03-25 12:24 | PN ---
Teaching Attending Note Name of Resident: China Landry ATTENDING PHYSICIAN STATEMENT I saw and evaluated the patient. I reviewed the resident's note and discussed the case with the resident. I agree with the resident's findings and plan as documented. SUBJECTIVE: Pt seen and examined in the ICU. Remains intubated, slightly more alert today. Poor cough on suctioning. Tolerated SIMV yesterday. OBJECTIVE: Vital Signs Period Temp Pulse Resp BP Sys/Michle Pulse Ox Last 24 Hr 98 F-98.8 F 58-84 9-18 114-156/53-80 98-100 Intake & Output 03/22/18 03/23/18 03/24/18 03/25/18 23:59 23:59 23:59 23:59 Intake Total 2813 1620 2500 580 Output Total 1600 1100 1400 500 Balance 2109 389 0153 80 Weight 55.6 kg 54.93 kg 57 kg 59.477 kg Gen: intubated, arousable Heart: RRR Lung: decreased breath sounds at the bases Abd: soft, nontender Ext: no edema CBC, BMP 03/25/18 05:30 03/25/18 05:30 Active Medications Acetaminophen (Ofirmev Injection -) 1,000 mg IVPB Q6H PRN PRN Reason: PAIN LEVEL 6-10 Last Admin: 03/19/18 11:52 Dose: 1,000 mg Atorvastatin Calcium (Lipitor -) 10 mg NGT HS [facility] Last Admin: 03/24/18 23:15 Dose: 10 mg Brimonidine Tartrate (Alphagan 0.2% -) 1 drop OD DAILY [facility] Last Admin: 03/25/18 11:13 Dose: 1 drop Chlorhexidine Gluconate (Hibiclens For Decolonization -) 1 applic TP HS [facility] Last Admin: 03/24/18 23:29 Dose: 1 applic Chlorhexidine Gluconate (Peridex -) 15 ml MM BID [facility] Last Admin: 03/25/18 11:10 Dose: 15 ml Ceftriaxone Sodium 1 gm/ (Dextrose) 50 mls @ 100 mls/hr IVPB DAILY [facility]; Protocol Last Admin: 03/25/18 11:10 Dose: 100 mls/hr Potassium Chloride (Potassium Chloride 10 Meq Premix Ivpb -) 10 meq in 100 mls @ 100 mls/hr IVPB Q60M [facility] Stop: 03/25/18 12:29 Last Admin: 03/25/18 11:19 Dose: 100 mls/hr Levetiracetam (Keppra Injection -) 1,000 mg IVPB BID [facility] Last Admin: 03/25/18 11:12 Dose: 1,000 mg Levothyroxine Sodium (Synthroid Injection -) 25 mcg IVPUSH 0700 [facility] Last Admin: 03/25/18 06:34 Dose: 25 mcg Metoprolol Tartrate (Lopressor -) 25 mg NGT BID [facility] Last Admin: 03/25/18 11:11 Dose: 25 mg Pantoprazole Sodium (Protonix Iv) 40 mg IVPUSH DAILY [facility] Last Admin: 03/25/18 11:10 Dose: 40 mg Phenytoin Sodium (Dilantin Injection -) 100 mg IVPB BID [facility] Last Admin: 03/25/18 11:12 Dose: 100 mg Timolol Maleate (Timoptic 0.5%) 1 drop OD DAILY [facility] Last Admin: 03/25/18 11:13 Dose: 1 drop Valsartan (Diovan -) 80 mg NGT DAILY [facility] Last Admin: 03/25/18 11:11 Dose: 80 mg ASSESSMENT AND PLAN: Acute Respiratory Failure Pneumonia likely Aspiration Sepsis Acute on Chronic Subdural Hematoma s/p Benjamin Hole/Evacuation of Hematoma Seizures +Troponins likely Demand Ischemia Atrial Fibrillation Acute Kidney Injury HTN CKD Hypothyroidism - continue antibiotics - rate control - defer anticoagulation due to subdural hematoma - replete lytes - monitor urine output, creatinine - continue antiepileptics per neuro - hold all sedation to assess mental status - spontaneous breathing trials as tolerated but would not extubate until mental status improved - enteral feeds - mechanical DVT prophylaxis - continue ICU monitoring - prognosis guarded critical care time spent in reviewing chart, evaluating patient and formulating plan 35 min
[2018-03-25 17:25] LABS: ALBUMIN 1.9 g/dl (3.4-5.0); ALK PHOS 109 U/L (45-117); ANION GAP 8 MMOL/L (8-16); BILIRUBIN,TOTAL 0.2 mg/dL (0.2-1.0); BLOOD UREA NITROGEN 19 mg/dL (7-18); CALCIUM 8.1 mg/dL (8.5-10.1); CHLORIDE 103 mmol/L (98-107); CO2 27 mmol/L (21-32); CREATININE 1.3 mg/dL (0.7-1.3); GLUCOSE,RANDOM 168 mg/dL (74-106); POTASSIUM 3.7 mmol/L (3.5-5.1); SGOT/AST 29 U/L (15-37); SGPT/ALT 16 U/L (12-78); SODIUM 138 mmol/L (136-145); TOT PROT 4.7 g/dl (6.4-8.2)
[2018-03-25] MEDS: CHLORHEXIDINE GLUCONATE 4% CLEANSER FOR DECOLONIZATION TP SCH (21:08)
[2018-03-25] MEDS: ATORVASTATIN CA 10 MG TABLET (FP) NGT SCH (21:08)
[2018-03-26 06:12] LABS: BASO % 0.4 % (0-2.0); EOS % 9.7 % (0-4.5); HEMATOCRIT 26.3 % (35.4-49); LYMPH % 20.9 % (8-40); MCH 28.7 pg (25.7-33.7); MCHC 34.4 g/dl (32.0-35.9); MEAN CELL VOLUME 83.6 fl (80-96); MEAN PLT VOLUME 6.8 fl (7.5-11.1); MONO % 18.2 % (3.8-10.2); NEUT % 50.8 % (42.8-82.8); PLATELET COUNT 319 K/MM3 (134-434); RBC 3.15 M/mm3 (4.00-5.60); RDW 12.8 % (11.9-15.9); WHITE BLOOD COUNT 7.4 K/mm3 (4.0-10.0)
[2018-03-26 06:50] LABS: CHLORIDE 103 mmol/L (98-107); POTASSIUM 3.5 mmol/L (3.5-5.1); SODIUM 138 mmol/L (136-145)
[2018-03-26 06:57] LABS: ALBUMIN 1.9 g/dl (3.4-5.0); ALK PHOS 102 U/L (45-117); ANION GAP 8 MMOL/L (8-16); BILIRUBIN,TOTAL 0.2 mg/dL (0.2-1.0); BLOOD UREA NITROGEN 18 mg/dL (7-18); CO2 27 mmol/L (21-32); CREATININE 1.3 mg/dL (0.7-1.3); GLUCOSE,RANDOM 122 mg/dL (74-106); SGOT/AST 28 U/L (15-37); SGPT/ALT 18 U/L (12-78); TOT PROT 4.8 g/dl (6.4-8.2)
--- NOTE | 2018-03-26 07:12 | PN ---
Physical Exam: SUBJECTIVE: Patient seen and examined this morning. Nurse states no acute events overnight, and that he has seemed more alert to verbal and tactile cues. He has had no BM since starting feeds. He has had mild twitching movements over his R eye. He has been afebrile and vitals were stable during weaning with SIMV and CPAP ventilator modes. OBJECTIVE: Vital Signs Period Temp Pulse Resp BP Sys/Michel Pulse Ox Last 24 Hr 98.2 F-98.9 F 58-78 10-18 124-161/60-82 99-100 GENERAL: The patient is alert to verbal and tactile stimuli. Vitals stable, saturating well on ventilator. HEAD: Clean and intact bandage over L parietal/occiput. EYES: L eye possible prior glaucoma (no new changes on this admission). PERRL, extraocular movements intact, sclera anicteric, conjunctiva clear. No ptosis. ENT: Nares patent, oropharynx clear without exudates, moist mucous membranes. No secretions or erythema near tube site. NECK: Trachea midline, full range of motion, supple. LUNGS: Breath sounds equal, clear to auscultation bilaterally (prior diminished sounds at bases have improved), no wheezes, no crackles, no accessory muscle use. HEART: Regular rate and rhythm, S1, S2 without murmur, rub or gallop. ABDOMEN: Slightly distended, but soft, nontender, normoactive bowel sounds, no guarding, no rebound, no hepatosplenomegaly, no masses. EXTREMITIES: 2+ pulses, warm, well-perfused, no pedal edema. NEUROLOGICAL: Pt intubated, CN exam unable to be performed. No facial droop. Mild twitching movements over R eye. PSYCH: Unable to determine. SKIN: Warm, dry, normal turgor, no rashes or lesions noted Laboratory Results - last 24 hr 03/25/18 03/25/18 03/25/18 05:30 05:30 16:00 WBC 7.0 RBC 3.23 L Hgb 9.3 L Hct 27.1 L MCV 83.9 MCH 28.9 MCHC 34.4 RDW 13.2 Plt Count 310 MPV 6.9 L Absolute Neuts (auto) 4.1 Neutrophils % 58.4 D Lymphocytes % 17.3 D Monocytes % 16.3 H D Eosinophils % 7.7 H Basophils % 0.3 Nucleated RBC % 0 Sodium 137 138 Potassium 3.1 L 3.7 Chloride 102 103 Carbon Dioxide 28 27 Anion Gap 7 L 8 BUN 19 H 19 H Creatinine 1.4 H 1.3 Creat Clearance w eGFR 47.94 52.22 Random Glucose 149 H 168 H Calcium 8.0 L 8.1 L Phosphorus 2.1 L 2.0 L Magnesium 1.7 L 2.0 Total Bilirubin 0.2 0.2 AST 24 29 D ALT 14 16 Alkaline Phosphatase 114 D 109 Total Protein 5.0 L 4.7 L Albumin 2.0 L 1.9 L 03/26/18 03/26/18 05:30 05:30 WBC 7.4 RBC 3.15 L Hgb 9.0 L Hct 26.3 L MCV 83.6 MCH 28.7 MCHC 34.4 RDW 12.8 Plt Count 319 MPV 6.8 L Absolute Neuts (auto) 3.7 Neutrophils % 50.8 Lymphocytes % 20.9 D Monocytes % 18.2 H Eosinophils % 9.7 H Basophils % 0.4 Nucleated RBC % 0 Sodium 138 Potassium 3.5 Chloride 103 Carbon Dioxide 27 Anion Gap 8 BUN 18 Creatinine 1.3 Creat Clearance w eGFR 52.22 Random Glucose 122 H D Calcium 8.0 L Phosphorus Magnesium Total Bilirubin 0.2 AST 28 ALT 18 Alkaline Phosphatase 102 Total Protein 4.8 L Albumin 1.9 L Active Medications Generic Name Dose Route Start Last Admin Trade Name Freq PRN Reason Stop Dose Admin Acetaminophen 1,000 mg 03/18/18 15:11 03/19/18 11:52 Ofirmev Injection - IVPB 1,000 mg Q6H PRN Administration PAIN LEVEL 6-10 Atorvastatin Calcium 10 mg 03/21/18 22:00 03/25/18 21:08 Lipitor - NGT 10 mg HS KRISTY Administration Brimonidine Tartrate 1 drop 03/18/18 10:00 03/25/18 11:13 Alphagan 0.2% - OD 1 drop DAILY KRISTY Administration Chlorhexidine Gluconate 1 applic 03/17/18 22:00 03/25/18 21:08 Hibiclens For Decolonization - TP 1 applic HS KRISTY Administration Chlorhexidine Gluconate 15 ml 03/19/18 22:00 03/25/18 21:08 Peridex - MM 15 ml BID KRSITY Administration Ceftriaxone Sodium 1 gm/ 50 mls @ 100 mls/hr 03/23/18 10:00 03/25/18 11:10 Dextrose IVPB 100 mls/hr DAILY K[facility] Administration Protocol Levetiracetam 1,000 mg 03/19/18 10:00 03/25/18 21:07 Keppra Injection - IVPB 1,000 mg BID KRISTY Administration Levothyroxine Sodium 25 mcg 03/19/18 07:45 03/25/18 06:34 Synthroid Injection - IVPUSH 25 mcg 0700 KRISTY Administration Metoprolol Tartrate 25 mg 03/21/18 11:30 03/25/18 21:07 Lopressor - NGT 25 mg BID KRISTY Administration Pantoprazole Sodium 40 mg 03/17/18 10:00 03/25/18 11:10 Protonix Iv IVPUSH 40 mg DAILY K[facility]Y Administration Phenytoin Sodium 100 mg 03/23/18 18:00 03/25/18 21:07 Dilantin Injection - IVPB 100 mg BID KRISTY Administration Timolol Maleate 1 drop 03/18/18 10:00 03/25/18 11:13 Timoptic 0.5% OD 1 drop DAILY [facility] Administration Valsartan 80 mg 03/24/18 10:00 03/25/18 11:11 Diovan - NGT 80 mg DAILY K[facility] Administration ASSESSMENT/PLAN: 87 yo M with PMH of CVA s/p evacuation (January 2018), AAA repair , and CABG, presents from [facility] for monitoring after acute on chronic subdural hematoma, complicated by atypical paroxysmal A Flutter and ARF 2/2 to aspiration pneumonia. 1. Neuro Acute on chronic subdural hematoma. Repeat head CT on 03/23 showed no acute changes to 03/20 (continued L frontal parietal hematoma). Focal sz has been controlled with Dilanton 100 mg BID, Keppra 1000 mg BID 2. Cardio CAD with increased troponin - likely due to demand ischemia HTN - continue lipitor 10 mg Qday and Lopressor 25 mg BID Atypical paroxysmal A Flutter - no anti-coagulation due to hematoma. Pt has been NSR. 3. Respiratory ARF 2/2 to aspiration pneumonia. No WBC, initial lactic acid WNL. Cultures grew "yeast-like organism". ID following (Dr. Prasad). On Ceftriaxone 1 gm, day 4. Chest x-ray today showed continued bi-basilar/patchy infiltrates, but better aeration at L base. Plans to extubate today, respiratory contacted. Pt has had improved cough reflex today. Pt tolerated SIMV mode, and tolerated CPAP challenge since yesterday. Will continue to monitor if extubation possible today. Daily sedation vacations, as pt hemodynamically stable. Pt has not required propofol x3 days. 4. Renal CKD, Creatinine and BUN 18/1.3 today. No intervention. 5. GI Past AAA repair. No issues this visit. Protonix 40 mg for prophylaxis. No BM since feeds - added Senna and Colace. 6. Nutrition/Electrolytes Pharmaceutical Sales Specialist provided recommendations to advance pt feeds. Pt has been receiving feeds (Osmolite, 20 mL/hr, Titrate 58 cc/hr, Target 1400/24 hrs). Phos repleted this morning (Mg 2.0, Phos 2.1). Will monitor, labs to be re- drawn AM tomorrow. Problem List - Problems (1) History of craniotomy Code(s): Z98.890 - OTHER SPECIFIED POSTPROCEDURAL STATES (2) Cerebrovascular accident (CVA) Code(s): I63.9 - CEREBRAL INFARCTION, UNSPECIFIED (3) Demand ischemia Code(s): I24.8 - OTHER FORMS OF ACUTE ISCHEMIC HEART DISEASE (4) Atrial flutter Code(s): I48.92 - UNSPECIFIED ATRIAL FLUTTER Qualifiers: Atrial flutter type: atypical Qualified Code(s): I48.4 - Atypical atrial flutter (5) Electrolyte abnormality Code(s): E87.8 - OTH DISORDERS OF ELECTROLYTE AND FLUID BALANCE, NEC (6) Focal seizures Code(s): R56.9 - UNSPECIFIED CONVULSIONS (7) History of endovascular stent graft for abdominal aortic aneurysm (AAA) Code(s): Z95.828 - PRESENCE OF OTHER VASCULAR IMPLANTS AND GRAFTS Visit type - Emergency Visit Emergency Visit: Yes ED Registration Date: 03/16/18 Care time: The patient presented to the Emergency Department on the above date and was hospitalized for further evaluation of their emergent condition. - New Patient This patient is new to me today: No - Critical Care Critical Care patient: Yes Total Critical Care Time (in minutes): 40 Critical Care Statement: The care of this patient involved high complexity decision making to prevent further life threatening deterioration of the patient 's condition and/or to evaluate & treat vital organ system(s) failure or risk of failure. - Discharge Referral Referred to [facility] Yes
[2018-03-26] MEDS: LEVOTHYROXINE SODIUM 100 MCG VIAL IVPUSH SCH (07:16)
[2018-03-26] MEDS ORDERED: DOCUSATE NA 100 MG/10 ML UNIT-DOSE CUPS PO PRN (07:24)
[2018-03-26] MEDS ORDERED: DOCUSATE NA 100 MG/10 ML UNIT-DOSE CUPS PO ONE (07:26)
--- NOTE | 2018-03-26 09:00 | PN ---
Progress Note (short form) - Note Progress Note: 87 year old male had seizure after subdural hematoma evacuation .He initially came from [place] for mental status change. He has history of craniotomy and evacuation of subdural hematoma on February [address] Rad Wilson. Patient under went repeat craniotectomy and hematoma evacuation. SUBJECTIVE : condition unchanged, opens eye spontaneously and there is no focal seizure, not following command Neurological Examinatoin Intuabted and off sedation and not waking up no twitching was seen, pupils are small and left side there is eivdence of old surgery ? glaucoma withdraws to painful stimuli CT scan on Agust 26 seems to be unchanged Assessment- 1. Acute on chronic subdural , gag reflex is poor and cant extubate. 2. Focal seizure secondary to subdural and history of craniotectomy twice , seizure controlled , continue dilantin and keppra for now continue supportive treatment Thanking you os much Jerardo Stokes MD
[2018-03-26] MEDS ORDERED: cefTRIAXone SODIUM 1 GM VIAL ONE (09:16)
[2018-03-26] MEDS ORDERED: DEXTROSE 5%-WATER - 50 ML IVPB ONE (09:16)
[2018-03-26 09:26] LABS: PHOSPHOROUS 2.1 mg/dL (2.5-4.9)
[2018-03-26] MEDS: levETIRAcetam 500 MG/5 ML INJECTION VIAL IVPB SCH ×2 (09:28→21:07)
[2018-03-26] MEDS: CEFTRIAXONE 1 GM in DEXTROSE 5%-WATER - 50 ML IVPB SCH (09:33)
[2018-03-26] MEDS: CHLORHEXIDINE GLUCONATE 0.12% 15ML CUP MM SCH ×2 (09:36→21:08)
[2018-03-26] MEDS: PANTOPRAZOLE SODIUM 40 MG VIAL IVPUSH SCH (09:51)
[2018-03-26] MEDS: VALSARTAN 80 MG TABLET (UD) NGT SCH (09:51)
[2018-03-26] MEDS: PHENYTOIN SODIUM 100 MG/2 ML VIAL IVPB SCH ×2 (09:51→21:07)
[2018-03-26] MEDS: METOPROLOL TARTRATE 25 MG TABLET (FP) NGT SCH ×3 (09:51→21:10)
[2018-03-26] MEDS: BRIMONIDINE TARTRATE 0.2% OPHTHALMIC 5 ML BOTTLE OD SCH (11:00)
[2018-03-26] MEDS: TIMOLOL 0.5% OPHTHALMIC SOL 5 ML BOTTLE OD SCH (11:00)
--- NOTE | 2018-03-26 11:33 | PN ---
Progress Note (short form) - Note Progress Note: patient seen and examined in ICU. All follow-ups noted Overall condition same--slightly more awake and remains vent dependent Off sedation afebrile Vital Signs Temp 98.9 F 03/26/18 06:00 Pulse 66 03/26/18 06:00 Resp 12 03/26/18 09:31 BP 136/69 03/26/18 06:00 Pulse Ox 99 03/26/18 00:21 Intake & Output 03/25/18 03/25/18 03/26/18 11:59 23:59 11:59 Intake Total 580 550 920 Output Total 500 450 700 Balance 80 100 220 Weight 131 lb 2 oz 130 lb 8.218 oz Intake: IVPB 200 550 200 Tube Feeding 260 600 Tube Irrigant 120 120 Output: Urine 500 450 700 Void 500 450 700 Other: Voiding Method External Catheter External Catheter External Catheter # Unmeasured Voids Void 1 Bowel Movement No No Body Mass Index (BMI) 19.9 Weight Measurement Method Built in [facility] Active Medications Acetaminophen (Ofirmev Injection -) 1,000 mg IVPB Q6H PRN PRN Reason: PAIN LEVEL 6-10 Last Admin: 03/19/18 11:52 Dose: 1,000 mg Atorvastatin Calcium (Lipitor -) 10 mg NGT HS [facility] Last Admin: 03/25/18 21:08 Dose: 10 mg Brimonidine Tartrate (Alphagan 0.2% -) 1 drop OD DAILY [facility] Last Admin: 03/25/18 11:13 Dose: 1 drop Chlorhexidine Gluconate (Hibiclens For Decolonization -) 1 applic TP HS [facility] Last Admin: 03/25/18 21:08 Dose: 1 applic Chlorhexidine Gluconate (Peridex -) 15 ml MM BID [facility] Last Admin: 03/26/18 09:36 Dose: 15 ml Ceftriaxone Sodium 1 gm/ (Dextrose) 50 mls @ 100 mls/hr IVPB DAILY [facility]; Protocol Last Admin: 03/26/18 09:33 Dose: 100 mls/hr Levetiracetam (Keppra Injection -) 1,000 mg IVPB BID [facility] Last Admin: 03/26/18 09:28 Dose: 1,000 mg Levothyroxine Sodium (Synthroid Injection -) 25 mcg IVPUSH 0700 [facility] Last Admin: 03/26/18 07:16 Dose: 25 mcg Metoprolol Tartrate (Lopressor -) 25 mg NGT BID [facility] Last Admin: 03/26/18 09:51 Dose: 25 mg Pantoprazole Sodium (Protonix Iv) 40 mg IVPUSH DAILY [facility] Last Admin: 03/26/18 09:51 Dose: 40 mg Phenytoin Sodium (Dilantin Injection -) 100 mg IVPB BID [facility] Last Admin: 03/26/18 09:51 Dose: 100 mg Senna (Senna Oral Solution -) 8.8 mg PO HS [facility] Timolol Maleate (Timoptic 0.5%) 1 drop OD DAILY [facility] Last Admin: 03/25/18 11:13 Dose: 1 drop Valsartan (Diovan -) 80 mg NGT DAILY [facility] Last Admin: 03/26/18 09:51 Dose: 80 mg CBC, BMP 03/26/18 05:30 03/26/18 05:30 PHYSICAL EXAM Intubated/- opens eyes . Do not respond to commands [id number] lungs-bilateral breath sounds-- diminished at bases abd-soft,nt,bs + LE- no edema. A/P Condition essentially same continue present care abx weaning as tolerated- monitor lites overall condition remains guarded Will follow Continue monitoring --in critical care Problem List - Problems (1) HTN (hypertension) Code(s): I10 - ESSENTIAL (PRIMARY) HYPERTENSION Qualifiers: Hypertension type: essential hypertension Qualified Code(s): I10 - Essential (primary) hypertension (2) Hypothyroid Code(s): E03.9 - HYPOTHYROIDISM, UNSPECIFIED Qualifiers: Hypothyroidism type: other Qualified Code(s): E03.8 - Other specified hypothyroidism (3) S/P craniotomy Code(s): Z98.890 - OTHER SPECIFIED POSTPROCEDURAL STATES (4) Subdural hemorrhage Code(s): I62.00 - NONTRAUMATIC SUBDURAL HEMORRHAGE, UNSPECIFIED (5) Hypokalemia Code(s): E87.6 - HYPOKALEMIA
[2018-03-26] MEDS ORDERED: NAPH,MB-DB/K PH,MBDB POWDER PACKET PO ONE (12:30)
--- NOTE | 2018-03-26 12:38 | PN ---
Teaching Attending Note Name of Resident: China Landry ATTENDING PHYSICIAN STATEMENT I saw and evaluated the patient. I reviewed the resident's note and discussed the case with the resident. I agree with the resident's findings and plan as documented. SUBJECTIVE: Pt seen and examined in the ICU. Remains intubated, slightly more awake off sedation. Cough stronger today. Tolerating CPAP/PS. OBJECTIVE: Vital Signs Period Temp Pulse Resp BP Sys/Michel Pulse Ox Last 24 Hr 98.2 F-98.9 F 58-73 10-19 124-161/60-77 99-100 Intake & Output 03/23/18 03/24/18 03/25/18 03/26/18 23:59 23:59 23:59 23:59 Intake Total 1620 2500 1130 920 Output Total 1100 1400 950 700 Balance 520 1100 180 220 Weight 54.93 kg 57 kg 59.477 kg 59.2 kg Gen: intubated, arousable Heart: RRR Lung: decreased breath sounds at the bases Abd: soft, nontender Ext: no edema CBC, BMP 03/26/18 05:30 03/26/18 05:30 Active Medications Acetaminophen (Ofirmev Injection -) 1,000 mg IVPB Q6H PRN PRN Reason: PAIN LEVEL 6-10 Last Admin: 03/19/18 11:52 Dose: 1,000 mg Atorvastatin Calcium (Lipitor -) 10 mg NGT HS [facility] Last Admin: 03/25/18 21:08 Dose: 10 mg Brimonidine Tartrate (Alphagan 0.2% -) 1 drop OD DAILY [facility] Last Admin: 03/25/18 11:13 Dose: 1 drop Chlorhexidine Gluconate (Hibiclens For Decolonization -) 1 applic TP HS [facility] Last Admin: 03/25/18 21:08 Dose: 1 applic Chlorhexidine Gluconate (Peridex -) 15 ml MM BID [facility] Last Admin: 03/26/18 09:36 Dose: 15 ml Ceftriaxone Sodium 1 gm/ (Dextrose) 50 mls @ 100 mls/hr IVPB DAILY [facility]; Protocol Last Admin: 03/26/18 09:33 Dose: 100 mls/hr Levetiracetam (Keppra Injection -) 1,000 mg IVPB BID [facility] Last Admin: 03/26/18 09:28 Dose: 1,000 mg Levothyroxine Sodium (Synthroid Injection -) 25 mcg IVPUSH 0700 [facility] Last Admin: 03/26/18 07:16 Dose: 25 mcg Metoprolol Tartrate (Lopressor -) 25 mg NGT BID [facility] Last Admin: 03/26/18 09:51 Dose: 25 mg Pantoprazole Sodium (Protonix Iv) 40 mg IVPUSH DAILY [facility] Last Admin: 03/26/18 09:51 Dose: 40 mg Phenytoin Sodium (Dilantin Injection -) 100 mg IVPB BID [facility] Last Admin: 03/26/18 09:51 Dose: 100 mg Senna (Senna Oral Solution -) 8.8 mg PO HS [facility] Timolol Maleate (Timoptic 0.5%) 1 drop OD DAILY [facility] Last Admin: 03/25/18 11:13 Dose: 1 drop Valsartan (Diovan -) 80 mg NGT DAILY [facility] Last Admin: 03/26/18 09:51 Dose: 80 mg ASSESSMENT AND PLAN: Acute Respiratory Failure Pneumonia likely Aspiration Sepsis Acute on Chronic Subdural Hematoma s/p Benjamin Hole/Evacuation of Hematoma Seizures +Troponins likely Demand Ischemia Atrial Fibrillation Acute Kidney Injury HTN CKD Hypothyroidism - wean to extubate - continue antibiotics - rate control - defer anticoagulation due to subdural hematoma - monitor urine output, creatinine - continue antiepileptics per neuro - mechanical DVT prophylaxis - continue ICU monitoring - prognosis guarded critical care time spent in reviewing chart, evaluating patient and formulating plan 35 min
[2018-03-26] MEDS ORDERED: PT OWN MED DRAWER 7, Y5N ONE ×4 (17:29→21:27)
[2018-03-26] MEDS: SENNOSIDES 8.8 MG/5 ML BULK BOTTLE PO SCH ×2 (17:32→21:08)
[2018-03-26] MEDS: ATORVASTATIN CA 10 MG TABLET (FP) NGT SCH ×2 (21:07→21:10)
[2018-03-26] MEDS: CHLORHEXIDINE GLUCONATE 4% CLEANSER FOR DECOLONIZATION TP SCH (21:08)
[2018-03-27 06:35] LABS: BASO % 0.6 % (0-2.0); EOS % 7.1 % (0-4.5); HEMATOCRIT 30.5 % (35.4-49); HEMOGLOBIN 10.6 GM/dL (11.7-16.9); LYMPH % 16.6 % (8-40); MCH 29.1 pg (25.7-33.7); MCHC 34.8 g/dl (32.0-35.9); MEAN CELL VOLUME 83.4 fl (80-96); MEAN PLT VOLUME 6.4 fl (7.5-11.1); MONO % 13.9 % (3.8-10.2); NEUT % 61.8 % (42.8-82.8); PLATELET COUNT 393 K/MM3 (134-434); RBC 3.66 M/mm3 (4.00-5.60); RDW 13.1 % (11.9-15.9); WHITE BLOOD COUNT 9.6 K/mm3 (4.0-10.0)
[2018-03-27] MEDS: LEVOTHYROXINE SODIUM 100 MCG VIAL IVPUSH SCH (06:36)
[2018-03-27 06:51] LABS: CHLORIDE 99 mmol/L (98-107); POTASSIUM 3.4 mmol/L (3.5-5.1); SODIUM 136 mmol/L (136-145)
[2018-03-27 06:58] LABS: ALBUMIN 2.3 g/dl (3.4-5.0); ALK PHOS 133 U/L (45-117); ANION GAP 9 MMOL/L (8-16); BILIRUBIN,TOTAL 0.3 mg/dL (0.2-1.0); BLOOD UREA NITROGEN 14 mg/dL (7-18); CALCIUM 8.3 mg/dL (8.5-10.1); CO2 28 mmol/L (21-32); CREATININE 1.2 mg/dL (0.7-1.3); GLUCOSE,RANDOM 90 mg/dL (74-106); MAGNESIUM 1.7 mg/dL (1.8-2.4); PHOSPHOROUS 2.6 mg/dL (2.5-4.9); SGOT/AST 28 U/L (15-37); SGPT/ALT 19 U/L (12-78); TOT PROT 5.6 g/dl (6.4-8.2)
--- NOTE | 2018-03-27 07:39 | PN ---
Physical Exam: SUBJECTIVE: Patient seen and examined this morning. Overnight, pt has continued to have facial twitching. He has been more alert and has been tolerating extubation on Venti face mask, but has had increased secretions. Pt had 2 loose BMs yesterday after senna administration. He has continued to be afebrile and his vitals were stable. OBJECTIVE: Vital Signs Period Temp Pulse Resp BP Sys/Michel Pulse Ox Last 24 Hr 98.6 F-98.7 F 63-84 12-25 128-174/65-78 99-99 GENERAL: The pt now has spontaneous eye opening. He is alert to tactile and vocal stimuli. HEAD: Clean and intact bandage over L parietal/occiput. EYES: L eye prior/glaucoma or damage (prior L orbital fracture), PERRL, extraocular movements intact, sclera anicteric, conjunctiva clear. No ptosis. ENT: Nares patent, oropharynx clear without exudates, moist mucous membranes. Tolerating Venti face mask, clear secretions, good cough reflex. NECK: Trachea midline, full range of motion, supple. LUNGS: Breath sounds equal, coarse lung sounds at bases, no wheezes, no accessory muscle use. HEART: Regular rate and rhythm, S1, S2 without murmur, rub or gallop. ABDOMEN: Soft, nontender, nondistended, normoactive bowel sounds, no guarding, no rebound, no hepatosplenomegaly, no masses. EXTREMITIES: 2+ pulses, warm, well-perfused, no edema. NEUROLOGICAL: Unable to obtain CN exam. 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 Facial twitching when awoken. Gait not observed. PSYCH: Unable to determine mood and affect. SKIN: Warm, dry, normal turgor, no rashes or lesions noted. Laboratory Results - last 24 hr 03/26/18 03/26/18 03/27/18 05:30 05:30 05:30 WBC 9.6 RBC 3.66 L Hgb 10.6 L Hct 30.5 L D MCV 83.4 MCH 29.1 MCHC 34.8 RDW 13.1 Plt Count 393 D MPV 6.4 L Absolute Neuts (auto) 6.0 Neutrophils % 61.8 D Lymphocytes % 16.6 D Monocytes % 13.9 H Eosinophils % 7.1 H Basophils % 0.6 Nucleated RBC % 0 Sodium 138 Potassium 3.5 Chloride 103 Carbon Dioxide 27 Anion Gap 8 BUN 18 Creatinine 1.3 Creat Clearance w eGFR 52.22 Random Glucose 122 H D Calcium 8.0 L Phosphorus 2.1 L Cancelled Magnesium 2.0 Cancelled Total Bilirubin 0.2 AST 28 ALT 18 Alkaline Phosphatase 102 Total Protein 4.8 L Albumin 1.9 L 03/27/18 05:30 WBC RBC Hgb Hct MCV MCH MCHC RDW Plt Count MPV Absolute Neuts (auto) Neutrophils % Lymphocytes % Monocytes % Eosinophils % Basophils % Nucleated RBC % Sodium 136 Potassium 3.4 L Chloride 99 Carbon Dioxide 28 Anion Gap 9 BUN 14 Creatinine 1.2 Creat Clearance w eGFR 57.27 Random Glucose 90 D Calcium 8.3 L Phosphorus 2.6 D Magnesium 1.7 L Total Bilirubin 0.3 AST 28 ALT 19 Alkaline Phosphatase 133 H D Total Protein 5.6 L Albumin 2.3 L Active Medications Generic Name Dose Route Start Last Admin Trade Name Freq PRN Reason Stop Dose Admin Acetaminophen 1,000 mg 03/18/18 15:11 03/19/18 11:52 Ofirmev Injection - IVPB 1,000 mg Q6H PRN Administration PAIN LEVEL 6-10 Atorvastatin Calcium 10 mg 03/21/18 22:00 03/26/18 21:10 Lipitor - NGT Not Given HS KRISTY Brimonidine Tartrate 1 drop 03/18/18 10:00 03/26/18 11:00 Alphagan 0.2% - OD 1 drop DAILY KRISTY Administration Chlorhexidine Gluconate 1 applic 03/17/18 22:00 03/26/18 21:08 Hibiclens For Decolonization - TP 1 applic HS KRISTY Administration Chlorhexidine Gluconate 15 ml 03/19/18 22:00 03/26/18 21:08 Peridex - MM Not Given BID KRISTY Ceftriaxone Sodium 1 gm/ 50 mls @ 100 mls/hr 03/23/18 10:00 03/26/18 09:33 Dextrose IVPB 100 mls/hr DAILY KRISTY Administration Protocol Levetiracetam 1,000 mg 03/19/18 10:00 03/26/18 21:07 Keppra Injection - IVPB 1,000 mg BID KRISTY Administration Levothyroxine Sodium 25 mcg 03/19/18 07:45 03/27/18 06:36 Synthroid Injection - IVPUSH 25 mcg 0700 KRISTY Administration Metoprolol Tartrate 25 mg 03/21/18 11:30 03/26/18 21:10 Lopressor - NGT Not Given BID KRISTY Pantoprazole Sodium 40 mg 03/17/18 10:00 03/26/18 09:51 Protonix Iv IVPUSH 40 mg DAILY KRISTY Administration Phenytoin Sodium 100 mg 03/23/18 18:00 03/26/18 21:07 Dilantin Injection - IVPB 100 mg BID KRISTY Administration Senna 8.8 mg 03/26/18 07:30 03/26/18 21:08 Senna Oral Solution - PO Not Given HS KRISTY Timolol Maleate 1 drop 03/18/18 10:00 03/26/18 11:00 Timoptic 0.5% OD 1 drop DAILY KRISTY Administration Valsartan 80 mg 03/24/18 10:00 03/26/18 09:51 Diovan - NGT 80 mg DAILY KRISTY Administration ASSESSMENT/PLAN: 87 yo M with PMH of 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 1. Neuro Acute on chronic subdural hematoma. Repeat head CT on 03/23 showed no acute changes to 03/20 (continued L frontal parietal hematoma). Will repeat head CT today, will follow. Focal sz has been controlled with Dil[place] 100 mg BID, Keppra 1000 mg BID 2. Cardio CAD with increased troponin - likely due to demand ischemia HTN - continue lipitor 10 mg Qday and Lopressor 25 mg BID; Lopressor given 5 mg IV today, as pt is NPO for swallow study. Atypical paroxysmal A Flutter - no anti-coagulation due to hematoma. Pt has been NSR. 3. Respiratory ARF 2/2 to aspiration pneumonia. No WBC, initial lactic acid WNL. Cultures grew "yeast-like organism". ID following (Dr. Prasad). On Ceftriaxone 1 gm, day 5. Chest x-ray today showed continued bi-basilar/patchy infiltrates, mildly improved on the R, mildly increased on the L. Pt tolerated SIMV and CPAP, was extubated yesterday due to improved cough reflex. Pt has tolerated Venti mask @40%. Respiratory is following. Daily sedation vacations, as pt hemodynamically stable. Pt has not required propofol x4 days. 4. Renal CKD, Creatinine and BUN 14/1.2 today. No intervention. 5. GI Past AAA repair. No issues this visit. Protonix 40 mg for prophylaxis. Added Senna and Colace to improve BM. Pt had 2 loose BMs yesterday. 6. Nutrition/Electrolytes Electric Motor Fitter provided recommendations to advance pt feeds. Pt has been receiving feeds (Osmolite, 20 mL/hr, Titrate 58 cc/hr, Target 1400/24 hrs). If pt fails swallow study today, we can place NG tube for NG route medications and feeding. Mg 1.7, Phos 2.6, K 3.4 today. Repleted with 10 meQ K IVPB and Mg 1 gm IVPB today. Problem List - Problems (1) History of craniotomy Code(s): Z98.890 - OTHER SPECIFIED POSTPROCEDURAL STATES (2) Cerebrovascular accident (CVA) Code(s): I63.9 - CEREBRAL INFARCTION, UNSPECIFIED (3) Demand ischemia Code(s): I24.8 - OTHER FORMS OF ACUTE ISCHEMIC HEART DISEASE (4) Atrial flutter Code(s): I48.92 - UNSPECIFIED ATRIAL FLUTTER Qualifiers: Atrial flutter type: atypical Qualified Code(s): I48.4 - Atypical atrial flutter (5) Electrolyte abnormality Code(s): E87.8 - OTH DISORDERS OF ELECTROLYTE AND FLUID BALANCE, NEC (6) Focal seizures Code(s): R56.9 - UNSPECIFIED CONVULSIONS (7) History of endovascular stent graft for abdominal aortic aneurysm (AAA) Code(s): Z95.828 - PRESENCE OF OTHER VASCULAR IMPLANTS AND GRAFTS Visit type - Emergency Visit Emergency Visit: Yes ED Registration Date: 03/16/18 Care time: The patient presented to the Emergency Department on the above date and was hospitalized for further evaluation of their emergent condition. - New Patient This patient is new to me today: No - Critical Care Critical Care patient: Yes Total Critical Care Time (in minutes): 40 Critical Care Statement: The care of this patient involved high complexity decision making to prevent further life threatening deterioration of the patient 's condition and/or to evaluate & treat vital organ system(s) failure or risk of failure. - Discharge Referral Referred to [facility] Yes
[2018-03-27] MEDS ORDERED: POTASSIUM CHLORIDE ORAL LIQUID 20 MEQ/15 ML PO ONE (07:41)
[2018-03-27] MEDS ORDERED: MAGNESIUM 1GM/D5W 100ML - 100 ML IVPB IVPB ONE (08:45)
[2018-03-27] MEDS ORDERED: KCL 10 MEQ IVPB 10 MEQ/100 ML INFUS.BAG IVPB SCH (08:45)
[2018-03-27] MEDS ORDERED: cefTRIAXone SODIUM 1 GM VIAL ONE (09:41)
[2018-03-27] MEDS ORDERED: DEXTROSE 5%-WATER - 50 ML IVPB ONE (09:42)
[2018-03-27] MEDS ORDERED: PT OWN MED DRAWER 7, Y5N ONE (09:46)
[2018-03-27] MEDS: CHLORHEXIDINE GLUCONATE 0.12% 15ML CUP MM SCH ×3 (10:00→21:33)
[2018-03-27] MEDS: TIMOLOL 0.5% OPHTHALMIC SOL 5 ML BOTTLE OD SCH (10:00)
[2018-03-27] MEDS: CEFTRIAXONE 1 GM in DEXTROSE 5%-WATER - 50 ML IVPB SCH (10:01)
[2018-03-27] MEDS: PANTOPRAZOLE SODIUM 40 MG VIAL IVPUSH SCH (10:02)
[2018-03-27] MEDS: METOPROLOL TARTRATE 25 MG TABLET (FP) NGT SCH ×2 (10:04→21:32)
[2018-03-27] MEDS: levETIRAcetam 500 MG/5 ML INJECTION VIAL IVPB SCH ×2 (10:04→21:33)
[2018-03-27] MEDS: VALSARTAN 80 MG TABLET (UD) NGT SCH ×2 (10:04→17:00)
[2018-03-27] MEDS: PHENYTOIN SODIUM 100 MG/2 ML VIAL IVPB SCH ×2 (10:06→21:33)
[2018-03-27] MEDS: BRIMONIDINE TARTRATE 0.2% OPHTHALMIC 5 ML BOTTLE OD SCH (10:11)
--- NOTE | 2018-03-27 10:17 | PN ---
Progress Note (short form) - Note Progress Note: Patient seen and examined in ICU Extubated yesterday successfully On Ventimask Slight more responsive/opens eyes off sedation afebrile Vital Signs Temp 98.6 F 03/27/18 02:00 Pulse 67 03/27/18 06:00 Resp 20 03/27/18 06:00 BP 151/73 03/27/18 06:00 Pulse Ox 99 03/27/18 05:10 Intake & Output 03/26/18 03/26/18 03/27/18 11:59 23:59 11:59 Intake Total 920 450 Output Total 700 1000 300 Balance 220 -550 -300 Weight 130 lb 8.218 oz 125 lb 1 oz Intake: IVPB 200 450 Tube Feeding 600 Tube Irrigant 120 Output: Urine 700 1000 300 Penny 700 300 Void 700 300 Other: Voiding Method External Catheter External Catheter # Unmeasured Voids Void 1 Weight Measurement Method Built in Bedscale Built in Bedscale Active Medications Acetaminophen (Ofirmev Injection -) 1,000 mg IVPB Q6H PRN PRN Reason: PAIN LEVEL 6-10 Last Admin: 03/19/18 11:52 Dose: 1,000 mg Atorvastatin Calcium (Lipitor -) 10 mg NGT HS [facility] Last Admin: 03/26/18 21:10 Dose: Not Given Brimonidine Tartrate (Alphagan 0.2% -) 1 drop OD DAILY [facility] Last Admin: 03/27/18 10:11 Dose: 1 drop Chlorhexidine Gluconate (Hibiclens For Decolonization -) 1 applic TP HS [facility] Last Admin: 03/26/18 21:08 Dose: 1 applic Chlorhexidine Gluconate (Peridex -) 15 ml MM BID [facility] Last Admin: 03/27/18 10:03 Dose: 15 ml Ceftriaxone Sodium 1 gm/ (Dextrose) 50 mls @ 100 mls/hr IVPB DAILY [facility]; Protocol Last Admin: 03/27/18 10:01 Dose: 100 mls/hr Levetiracetam (Keppra Injection -) 1,000 mg IVPB BID [facility] Last Admin: 03/27/18 10:04 Dose: 1,000 mg Levothyroxine Sodium (Synthroid Injection -) 25 mcg IVPUSH 0700 [facility] Last Admin: 03/27/18 06:36 Dose: 25 mcg Metoprolol Tartrate (Lopressor -) 25 mg NGT BID [facility] Last Admin: 03/27/18 10:04 Dose: Not Given Pantoprazole Sodium (Protonix Iv) 40 mg IVPUSH DAILY [facility] Last Admin: 03/27/18 10:02 Dose: 40 mg Phenytoin Sodium (Dilantin Injection -) 100 mg IVPB BID [facility] Last Admin: 03/27/18 10:06 Dose: 100 mg Senna (Senna Oral Solution -) 8.8 mg PO HS [facility] Last Admin: 03/26/18 21:08 Dose: Not Given Timolol Maleate (Timoptic 0.5%) 1 drop OD DAILY [facility] Last Admin: 03/27/18 10:00 Dose: 1 drop Valsartan (Diovan -) 80 mg NGT DAILY [facility] Last Admin: 03/27/18 10:04 Dose: Not Given CBC, BMP 03/27/18 05:30 03/27/18 05:30 PHYSICAL EXAM drowsy/ somewhat arousable cvs-s1s2 lungs-bilateral breath sounds-- diminished at bases abd-soft,nt,bs + LE- no edema. A/P slight improvement continue present care abx monitor closely neuro and critical care following Monitor lites Will follow Problem List - Problems (1) HTN (hypertension) Code(s): I10 - ESSENTIAL (PRIMARY) HYPERTENSION Qualifiers: Hypertension type: essential hypertension Qualified Code(s): I10 - Essential (primary) hypertension (2) Hypothyroid Code(s): E03.9 - HYPOTHYROIDISM, UNSPECIFIED Qualifiers: Hypothyroidism type: other Qualified Code(s): E03.8 - Other specified hypothyroidism (3) S/P craniotomy Code(s): Z98.890 - OTHER SPECIFIED POSTPROCEDURAL STATES (4) Subdural hemorrhage Code(s): I62.00 - NONTRAUMATIC SUBDURAL HEMORRHAGE, UNSPECIFIED (5) Hypokalemia Code(s): E87.6 - HYPOKALEMIA
[2018-03-27] MEDS ORDERED: METOPROLOL TARTRATE 5 MG/5 ML VIAL IVPUSH ONE (12:00)
--- NOTE | 2018-03-27 12:31 | PN ---
Teaching Attending Note Name of Resident: China Landry ATTENDING PHYSICIAN STATEMENT I saw and evaluated the patient. I reviewed the resident's note and discussed the case with the resident. I agree with the resident's findings and plan as documented. SUBJECTIVE: Pt seen and examined in the ICU. Extubated yesterday without incident. Remains lethargic but arousable. Saturating well on ventimask. OBJECTIVE: Vital Signs Period Temp Pulse Resp BP Sys/Michel Pulse Ox Last 24 Hr 98.6 F-98.9 F 62-84 18-25 145-174/63-81 99-99 Intake & Output 03/24/18 03/25/18 03/26/18 03/27/18 23:59 23:59 23:59 23:59 Intake Total 2500 1130 1370 Output Total 7896 337 4437 300 Balance 1100 180 -330 -300 Weight 57 kg 59.477 kg 59.2 kg 56.727 kg Gen: lethargic but arousable Heart: RRR Lung: decreased breath sounds at the bases Abd: soft, nontender Ext: no edema CBC, BMP 03/27/18 05:30 03/27/18 05:30 Active Medications Acetaminophen (Ofirmev Injection -) 1,000 mg IVPB Q6H PRN PRN Reason: PAIN LEVEL 6-10 Last Admin: 03/19/18 11:52 Dose: 1,000 mg Atorvastatin Calcium (Lipitor -) 10 mg NGT HS [facility] Last Admin: 03/26/18 21:10 Dose: Not Given Brimonidine Tartrate (Alphagan 0.2% -) 1 drop OD DAILY [facility] Last Admin: 03/27/18 10:11 Dose: 1 drop Chlorhexidine Gluconate (Hibiclens For Decolonization -) 1 applic TP HS [facility] Last Admin: 03/26/18 21:08 Dose: 1 applic Chlorhexidine Gluconate (Peridex -) 15 ml MM BID [facility] Last Admin: 03/27/18 10:03 Dose: 15 ml Ceftriaxone Sodium 1 gm/ (Dextrose) 50 mls @ 100 mls/hr IVPB DAILY [facility]; Protocol Last Admin: 03/27/18 10:01 Dose: 100 mls/hr Levetiracetam (Keppra Injection -) 1,000 mg IVPB BID [facility] Last Admin: 03/27/18 10:04 Dose: 1,000 mg Levothyroxine Sodium (Synthroid Injection -) 25 mcg IVPUSH 0700 [facility] Last Admin: 03/27/18 06:36 Dose: 25 mcg Metoprolol Tartrate (Lopressor -) 25 mg NGT BID [facility] Last Admin: 03/27/18 10:04 Dose: Not Given Pantoprazole Sodium (Protonix Iv) 40 mg IVPUSH DAILY [facility] Last Admin: 03/27/18 10:02 Dose: 40 mg Phenytoin Sodium (Dilantin Injection -) 100 mg IVPB BID [facility] Last Admin: 03/27/18 10:06 Dose: 100 mg Senna (Senna Oral Solution -) 8.8 mg PO HS [facility] Last Admin: 03/26/18 21:08 Dose: Not Given Timolol Maleate (Timoptic 0.5%) 1 drop OD DAILY [facility] Last Admin: 03/27/18 10:00 Dose: 1 drop Valsartan (Diovan -) 80 mg NGT DAILY [facility] Last Admin: 03/27/18 10:04 Dose: Not Given ASSESSMENT AND PLAN: Acute Respiratory Failure Pneumonia likely Aspiration Sepsis Acute on Chronic Subdural Hematoma s/p Fyffe Hole/Evacuation of Hematoma Seizures +Troponins likely Demand Ischemia Atrial Fibrillation Acute Kidney Injury HTN CKD Hypothyroidism - taper FiO2 to keep SpO2 >90% - continue antibiotics - rate control - defer anticoagulation due to subdural hematoma - monitor urine output, creatinine - continue antiepileptics per neuro - swallow eval when more alert - mechanical DVT prophylaxis - continue ICU monitoring - prognosis guarded critical care time spent in reviewing chart, evaluating patient and formulating plan 35 min
--- NOTE | 2018-03-27 12:36 | CONSULT ---
Admitting History and Physical - Primary Care Physician PCP: Yessy Singh - Admission History of Present Illness: The patient is an 87-year-old male presents to the emergency department via EMS from [facility] with AMS 03/16/18. As per the [place], the patient presents secondary to altered mental status for the past 5 days with failure to thrive. [facility] reports , the patient at baseline was able to ambulate, feed himself and was able to write. For the past 5 days, the patients been nonambulatory and unable to feed himself. The patient is s/p craniotomy and evacuation of hematoma 02/18/[address] Patrick Nolasco Patient under went repeat craniotectomy and hematoma evacuation,seizure, intubated 03/19. Pt extubated 03/26 Last seen by me 02/25/18 Tolerating puree and nectar thick. Aspiration risk as he talks and jokes/ laughs with food in oral cavity/pharynx. Greater risk with solids. 3 oz water still with responsive cough. Encourage pt not to speak until after he swallows. Neck roll for head support to eliminate head extension which opens airway and increases risk of aspiration. Pt was on puree/nectar/Ensure Plus (thickened?) at [facility]. 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 No: AFIB, Aneurysm, Aortic Insufficiency, Aortic Stenosis, CHF, Deep Vein Thrombosis, NE, Mitral Insufficiency, Mitral Stenosis, Murmur, Pulmonary Hypertension Musculoskeletal: Yes: Chronic low back pain (with radiculopathy) Rheumatology: Yes: Gout, Other (Polymyalgia Rheumatica) Endocrine: Yes: Hypothyroidism. No: Bartow's Disease, [place]'s Disease, Diabetes Insipidus, Diabetes Mellitus, Hyperparathyroidism, Hyperthyroidism, Osteopenia, SIADH, Other - Past Surgical History Past Surgical History: Yes: Appendectomy, CABG ([facility]), Tonsillectomy. No: None, AAA Repair, AICD, Amputation, Arthrosocopy, AV Fistula/Graft, Bariatric Surgery , Breast Biopsy, Bypass, Carotid Endarterectomy, Cataract Removal, Cholecystectomy, Colectomy, Colonoscopy, Colostomy, Craniotomy, , Cystectomy, Hernia Repair, Hysterectomy, Ileal Conduit, Ileosotomy, Joint Replacement, Kidney Transplant, Laminectomy, Liver Transplant, Mastectomy, Nephrectomy, Oopherectomy, Orchiectomy, Permanent Pacemaker, Prostatectomy, Splenectomy, Stent, Thoracotomy, TURP, Tubal Ligation, Upper Endoscopy, Valve Replacement, Vasectomy, Vein Stripping/Ligation - Advance Directives Advance Directives: Yes: Living Will, Health Care Proxy, DNR, Organ Donor, Tissue Donor, MOLST - Smoking History Smoking history: Never smoked Have you smoked in the past 12 months: No Aproximately how many cigarettes per day: 0 - Alcohol/Substance Use Hx Alcohol Use: Yes (SOCIALLY) History - Admission Reason For Visit: SUBDURAL HEMORRHAGE - Diagnostics X-ray: Report Reviewed CT Scan: Report Reviewed MRI: Report Reviewed - General Mental Status: Lethargic (Brief eye opening and throat clearing-hoarse voice) Ability to Follow Directions: Poor Head/Neck Control: Needs Assist - Hearing Hearing: Normal Hearing Aide: No Speech Evaluation - Communication Primary Language: PERSIAN Communication: Yes: Non-Communicable - Speech Characteristics Voice Phonatory-based Quality: Yes: Hoarse, Dysphonia Articulation: Yes: Imprecise - Language/Auditory Comprehension Observation: Comprehends Conversational Speech: Yes (simple, if loud enough) - Language/Verbal Expression Aphasia: Yes: Anomia (perseverative), Impaired Repetition (on low probability, longer sentences), Apraxia, Sound Errors - Swallow Evaluation/Bedside Assessment Current Nutritional Intake: NPO A-P Transit: Impaired Recommendations - Speech Evaluation, Impression/Plan Impression: Lethargic. Insufficiently arousable for PO trials. Voice hoarse, noted when clearing his throat. Pt with baseline Dysphagia. - Disposition Discharge to: [facility] Facility - Dysphagia Impressions/Plan Swallowing Skills: Impaired Dysphagia Impressions: Too Lethargic to Assess, Suspect Aspiration *Silent aspiration: cannot be R/O at bedside Recommendations: Modified Barium Swallow (once sufficiently arousable before po trials.), Other (Consider NGT for meds/nutrition) - Recommendations Diet Consistency: NPO, Other (NGT) Liquids: NPO
--- NOTE | 2018-03-27 15:15 | PN ---
Progress Note, Physician History of Present Illness: Extubated and maintaining adequate oxygen levels on VM. - Current Medication List Current Medications: Active Medications Acetaminophen (Ofirmev Injection -) 1,000 mg IVPB Q6H PRN PRN Reason: PAIN LEVEL 6-10 Last Admin: 03/19/18 11:52 Dose: 1,000 mg Atorvastatin Calcium (Lipitor -) 10 mg NGT HS [facility] Last Admin: 03/26/18 21:10 Dose: Not Given Brimonidine Tartrate (Alphagan 0.2% -) 1 drop OD DAILY [facility] Last Admin: 03/27/18 10:11 Dose: 1 drop Chlorhexidine Gluconate (Hibiclens For Decolonization -) 1 applic TP HS [facility] Last Admin: 03/26/18 21:08 Dose: 1 applic Chlorhexidine Gluconate (Peridex -) 15 ml MM BID [facility] Last Admin: 03/27/18 10:03 Dose: 15 ml Ceftriaxone Sodium 1 gm/ (Dextrose) 50 mls @ 100 mls/hr IVPB DAILY [facility]; Protocol Last Admin: 03/27/18 10:01 Dose: 100 mls/hr Levetiracetam (Keppra Injection -) 1,000 mg IVPB BID [facility] Last Admin: 03/27/18 10:04 Dose: 1,000 mg Levothyroxine Sodium (Synthroid Injection -) 25 mcg IVPUSH 0700 [facility] Last Admin: 03/27/18 06:36 Dose: 25 mcg Metoprolol Tartrate (Lopressor -) 25 mg NGT BID [facility] Last Admin: 03/27/18 10:04 Dose: Not Given Pantoprazole Sodium (Protonix Iv) 40 mg IVPUSH DAILY [facility] Last Admin: 03/27/18 10:02 Dose: 40 mg Phenytoin Sodium (Dilantin Injection -) 100 mg IVPB BID [facility] Last Admin: 03/27/18 10:06 Dose: 100 mg Senna (Senna Oral Solution -) 8.8 mg PO HS [facility] Last Admin: 03/26/18 21:08 Dose: Not Given Timolol Maleate (Timoptic 0.5%) 1 drop OD DAILY [facility] Last Admin: 03/27/18 10:00 Dose: 1 drop Valsartan (Diovan -) 80 mg NGT DAILY [facility] Last Admin: 03/27/18 10:04 Dose: Not Given - Objective Vital Signs: Vital Signs Temperature 98.9 F 03/27/18 10:00 Pulse Rate 74 03/27/18 14:00 Respiratory Rate 18 03/27/18 14:00 Blood Pressure 142/72 03/27/18 14:00 O2 Sat by Pulse Oximetry (%) 98 03/27/18 10:00 Constitutional: Yes: No Distress, Calm Neck: Yes: Supple Cardiovascular: Yes: Regular Rate and Rhythm Respiratory: Yes: Regular, Diminished, On Venti-Mask Gastrointestinal: Yes: Soft, Hypoactive Bowel Sounds Edema: No Labs: CBC, BMP 03/27/18 05:30 03/27/18 05:30 INR, PTT INR 1.35 (0.83-1.09) H 03/17/18 05:30 - ....Imaging EKG: Report Reviewed (Tele: NSR) Problem List - Problems (1) Demand ischemia Code(s): I24.8 - OTHER FORMS OF ACUTE ISCHEMIC HEART DISEASE (2) Atrial flutter Code(s): I48.92 - UNSPECIFIED ATRIAL FLUTTER Qualifiers: Atrial flutter type: atypical Qualified Code(s): I48.4 - Atypical atrial flutter (3) S/P CABG (coronary artery bypass graft) Code(s): Z95.1 - PRESENCE OF AORTOCORONARY BYPASS GRAFT (4) History of endovascular stent graft for abdominal aortic aneurysm (AAA) Code(s): Z95.828 - PRESENCE OF OTHER VASCULAR IMPLANTS AND GRAFTS (5) Focal seizures Code(s): R56.9 - UNSPECIFIED CONVULSIONS (6) History of craniotomy Code(s): Z98.890 - OTHER SPECIFIED POSTPROCEDURAL STATES (7) Pneumonia Code(s): J18.9 - PNEUMONIA, UNSPECIFIED ORGANISM Qualifiers: Pneumonia type: aspiration pneumonia (8) MALINDA (acute kidney injury) Code(s): N17.9 - ACUTE KIDNEY FAILURE, UNSPECIFIED (9) Aneurysm of infrarenal abdominal aorta Code(s): I71.4 - ABDOMINAL AORTIC ANEURYSM, WITHOUT RUPTURE (10) HTN (hypertension) Code(s): I10 - ESSENTIAL (PRIMARY) HYPERTENSION Qualifiers: Hypertension type: essential hypertension Qualified Code(s): I10 - Essential (primary) hypertension (11) Hypothyroid Code(s): E03.9 - HYPOTHYROIDISM, UNSPECIFIED Qualifiers: Hypothyroidism type: other Qualified Code(s): E03.8 - Other specified hypothyroidism (12) Subdural hemorrhage Code(s): I62.00 - NONTRAUMATIC SUBDURAL HEMORRHAGE, UNSPECIFIED (13) Hyperlipidemia Code(s): E78.5 - HYPERLIPIDEMIA, UNSPECIFIED Qualifiers: Hyperlipidemia type: pure hypercholesterolemia Qualified Code(s): E78.00 - Pure hypercholesterolemia, unspecified; E78.0 - Pure hypercholesterolemia (14) Hypokalemia Code(s): E87.6 - HYPOKALEMIA Assessment/Plan Mild cLVH, normal LVEF 65%, normal RV size and fxn, mild LAE, mild MR , AR and mod TR 1. Post acute Respiratory Failure referable to probable aspiration pneumonia 2. Paroxysmal Atypical atrial flutter [id number] score of 5 currently on no A/ C related to subdural hematoma 3. CAD post CABG angina pectoris demand ischemic injury 4. Diastolic LV dysfunction with class 0-I NYHA classification LV failure, compensated/euvolemic 5. Acute on Chronic Subdural Hematoma post [place] Hole/Evacuation of Hematoma 6. Seizure disorder 7. HTN 8. Hypercholesterolemia 9. AAA post EVAR 10. Hypothyroidism 11. Acute on chronic kidney Injury improved 12. Anemia PLAN: 1. Continue Lopressor 25 bid 2. Continue Diovan 80 qd 3. Continue Lipitor 10 qhs 4. Defer anticoagulation for atrial flutter with [id number] score of 5 due to subdural hematoma 4. Antibiotics as per primary team 5. Continue anti-epileptics per neuro service 6. Taper FiO2 to keep SpO2 >90%, complete abx course 7. Swallow eval when more alert 8. Mechanical DVT and GI prophylaxis, replete K
[2018-03-27] MEDS: ATORVASTATIN CA 10 MG TABLET (FP) NGT SCH (21:33)
[2018-03-27] MEDS: SENNOSIDES 8.8 MG/5 ML BULK BOTTLE PO SCH (21:33)
[2018-03-27] MEDS: CHLORHEXIDINE GLUCONATE 4% CLEANSER FOR DECOLONIZATION TP SCH (21:33)
[2018-03-28] MEDS ORDERED: PT OWN MED DRAWER 7, Y5N ONE ×3 (05:10→10:20)
[2018-03-28 06:10] LABS: BASO % 0.7 % (0-2.0); HEMATOCRIT 27.2 % (35.4-49); HEMOGLOBIN 9.5 GM/dL (11.7-16.9); LYMPH % 17.5 % (8-40); MCH 29.4 pg (25.7-33.7); MCHC 34.9 g/dl (32.0-35.9); MEAN CELL VOLUME 84.1 fl (80-96); MEAN PLT VOLUME 6.1 fl (7.5-11.1); MONO % 11.8 % (3.8-10.2); PLATELET COUNT 360 K/MM3 (134-434); RBC 3.24 M/mm3 (4.00-5.60); RDW 13.1 % (11.9-15.9); WHITE BLOOD COUNT 8.3 K/mm3 (4.0-10.0)
[2018-03-28 06:20] LABS: ALBUMIN 2.2 g/dl (3.4-5.0); ALK PHOS 116 U/L (45-117); ANION GAP 9 MMOL/L (8-16); BILIRUBIN,TOTAL 0.3 mg/dL (0.2-1.0); BLOOD UREA NITROGEN 14 mg/dL (7-18); CALCIUM 8.2 mg/dL (8.5-10.1); CHLORIDE 97 mmol/L (98-107); CO2 30 mmol/L (21-32); CREATININE 1.2 mg/dL (0.7-1.3); GLUCOSE,RANDOM 121 mg/dL (74-106); MAGNESIUM 1.8 mg/dL (1.8-2.4); PHOSPHOROUS 2.6 mg/dL (2.5-4.9); POTASSIUM 3.2 mmol/L (3.5-5.1); SGOT/AST 35 U/L (15-37); SGPT/ALT 22 U/L (12-78); SODIUM 136 mmol/L (136-145); TOT PROT 5.4 g/dl (6.4-8.2)
[2018-03-28] MEDS: LEVOTHYROXINE SODIUM 100 MCG VIAL IVPUSH SCH (06:56)
--- NOTE | 2018-03-28 07:06 | PN ---
Physical Exam: SUBJECTIVE: Patient seen and examined this morning. Pt has been stable on Venti mask (40%), afebrile with stable vitals. NG tube was placed yesterday, which pt tolerated well. Feeds and medications have been continued via NG. No acute events or desaturations overnight. OBJECTIVE: Vital Signs Period Temp Pulse Resp BP Sys/Michel Pulse Ox Last 24 Hr 97.8 F-99.7 F 62-95 16-22 139-172/63-81 97-98 GENERAL: The pt now has spontaneous eye opening. He is alert to tactile and vocal stimuli. Is not following commands this morning. HEAD: Clean and intact bandage over L parietal/occiput. EYES: L eye prior/glaucoma or damage (prior L orbital fracture), PERRL, extraocular movements intact, tracking movements with his eyes, sclera anicteric , conjunctiva clear. No ptosis. ENT: Nares patent, oropharynx clear without exudates, moist mucous membranes. Tolerating Venti face mask, clear secretions, good cough reflex. NECK: Trachea midline, full range of motion, supple. LUNGS: Breath sounds equal, coarse lung sounds at bases with transmitted upper airway noises (secretions), no wheezes, no accessory muscle use. HEART: Regular rate and rhythm, S1, S2 without murmur, rub or gallop. ABDOMEN: Soft, nontender, nondistended, normoactive bowel sounds, no guarding, no rebound, no hepatosplenomegaly, no masses. EXTREMITIES: 2+ pulses, warm, well-perfused, no edema. NEUROLOGICAL: Unable to obtain CN exam. Adequate communications analyst in hands b/l. No facial twitching appreciated today. Gait not observed. PSYCH: Unable to determine mood and affect. Pt interacting with eye tracking and looking to verbal cues today. SKIN: Warm, dry, normal turgor, no rashes or lesions noted. I/O: 440/800, net -360 (feeds started again yesterday afternoon) Laboratory Results - last 24 hr 03/28/18 05:30 Sodium 136 Potassium 3.2 L Chloride 97 L Carbon Dioxide 30 Anion Gap 9 BUN 14 Creatinine 1.2 Creat Clearance w eGFR 57.27 Random Glucose 121 H D Calcium 8.2 L Phosphorus 2.6 Magnesium 1.8 Total Bilirubin 0.3 AST 35 D ALT 22 Alkaline Phosphatase 116 D Total Protein 5.4 L Albumin 2.2 L Active Medications Generic Name Dose Route Start Last Admin Trade Name Edwarq PRN Reason Stop Dose Admin Acetaminophen 1,000 mg 03/18/18 15:11 03/19/18 11:52 Ofirmev Injection - IVPB 1,000 mg Q6H PRN Administration PAIN LEVEL 6-10 Atorvastatin Calcium 10 mg 03/21/18 22:00 03/27/18 21:33 Lipitor - NGT 10 mg HS KRISTY Administration Brimonidine Tartrate 1 drop 03/18/18 10:00 03/27/18 10:11 Alphagan 0.2% - OD 1 drop DAILY KRISTY Administration Chlorhexidine Gluconate 1 applic 03/17/18 22:00 03/27/18 21:33 Hibiclens For Decolonization - TP 1 applic HS KRISTY Administration Chlorhexidine Gluconate 15 ml 03/19/18 22:00 03/27/18 21:33 Peridex - MM Not Given BID KRISTY Ceftriaxone Sodium 1 gm/ 50 mls @ 100 mls/hr 03/23/18 10:00 03/27/18 10:01 Dextrose IVPB 100 mls/hr DAILY KRISTY Administration Protocol Levetiracetam 1,000 mg 03/19/18 10:00 03/27/18 21:33 Keppra Injection - IVPB 1,000 mg BID KRISTY Administration Levothyroxine Sodium 25 mcg 03/19/18 07:45 03/28/18 06:56 Synthroid Injection - IVPUSH 25 mcg 0700 KRISTY Administration Metoprolol Tartrate 25 mg 03/21/18 11:30 03/27/18 21:32 Lopressor - NGT 25 mg BID KRISTY Administration Pantoprazole Sodium 40 mg 03/17/18 10:00 03/27/18 10:02 Protonix Iv IVPUSH 40 mg DAILY KRISTY Administration Phenytoin Sodium 100 mg 03/23/18 18:00 03/27/18 21:33 Dilantin Injection - IVPB 100 mg BID KRISTY Administration Senna 8.8 mg 03/26/18 07:30 03/27/18 21:33 Senna Oral Solution - PO Not Given HS KRISTY Timolol Maleate 1 drop 03/18/18 10:00 03/27/18 10:00 Timoptic 0.5% OD 1 drop DAILY KRISTY Administration Valsartan 80 mg 03/24/18 10:00 03/27/18 17:00 Diovan - NGT 80 mg DAILY KRISTY Administration ASSESSMENT/PLAN: 87 yo M with PMH of CVA s/p evacuation (January 2018), AAA repair , and CABG, presents from [facility] for monitoring after acute on chronic subdural hematoma, complicated by atypical paroxysmal A Flutter ( currently in NSR) and ARF 2/2 to aspiration pneumonia. 1. Neuro Acute on chronic subdural hematoma. Repeat head CT on 03/23 showed no acute changes to 03/20 (continued L frontal parietal hematoma). Repeat head CT showed no acute bleeding, minimal midline shift. Neuro team stated he is stable per neuro perspective. Focal sz has been controlled with [place] 100 mg BID, Keppra 1000 mg BID 2. Cardio CAD with increased troponin - likely due to demand ischemia HTN - continue lipitor 10 mg Qday and Lopressor 25 mg BID; Lopressor given 5 mg IV yesterday due to failing swallow study (was NPO). Continued feeds and medications via NG tube this morning. Dr Harding added: Losartan 50 mg PO Qday, Amlodipine 5 mg PO Qday Atypical paroxysmal A Flutter - no anti-coagulation due to hematoma. Pt has been NSR. 3. Respiratory ARF 2/2 to aspiration pneumonia. No WBC, initial lactic acid WNL. Cultures grew "yeast-like organism". ID following (Dr. Prasad). On Ceftriaxone 1 gm, day 6. Chest x-ray today shows continued bi-basilar/patchy infiltrates, with NG tube in place. Chest x-ray showed appropriate placement of NG tube in the stomach after repositioning. Pt tolerated SIMV and CPAP, was extubated due to improved cough reflex. Pt has tolerated Venti mask @40%. Switched from Venti mask to 3 L NC today. Pt tolerating well, saturation 95- 99% Daily sedation vacations, as pt hemodynamically stable. Pt has not required propofol x5 days. 4. Renal CKD, Creatinine and BUN 14/1.2 today. No intervention. 5. GI Past AAA repair. No issues this visit. Protonix 40 mg for prophylaxis. Added Senna and Colace to improve BM. Pt had 2 loose BMs yesterday. Pt has not needed senna x2 days. 6. Nutrition/Electrolytes Education And Training Coordinator provided recommendations to advance pt feeds. Pt has been receiving feeds (Osmolite, 20 mL/hr, Titrate 58 cc/hr, Target 1400/24 hrs). Pt failed swallow study (not alert enough to participate), continued tube feeds. Mg 1.8, Phos 2.6, K 3.2 today. Repleted with 40 meq PO and Mg 1 gm IVPB today. Problem List - Problems (1) History of craniotomy Code(s): Z98.890 - OTHER SPECIFIED POSTPROCEDURAL STATES (2) Cerebrovascular accident (CVA) Code(s): I63.9 - CEREBRAL INFARCTION, UNSPECIFIED (3) Demand ischemia Code(s): I24.8 - OTHER FORMS OF ACUTE ISCHEMIC HEART DISEASE (4) Atrial flutter Code(s): I48.92 - UNSPECIFIED ATRIAL FLUTTER Qualifiers: Atrial flutter type: atypical Qualified Code(s): I48.4 - Atypical atrial flutter (5) Electrolyte abnormality Code(s): E87.8 - OTH DISORDERS OF ELECTROLYTE AND FLUID BALANCE, NEC (6) Focal seizures Code(s): R56.9 - UNSPECIFIED CONVULSIONS (7) History of endovascular stent graft for abdominal aortic aneurysm (AAA) Code(s): Z95.828 - PRESENCE OF OTHER VASCULAR IMPLANTS AND GRAFTS Visit type - Emergency Visit Emergency Visit: Yes ED Registration Date: 03/16/18 Care time: The patient presented to the Emergency Department on the above date and was hospitalized for further evaluation of their emergent condition. - New Patient This patient is new to me today: No - Critical Care Critical Care patient: Yes Total Critical Care Time (in minutes): 35 Critical Care Statement: The care of this patient involved high complexity decision making to prevent further life threatening deterioration of the patient 's condition and/or to evaluate & treat vital organ system(s) failure or risk of failure. - Discharge Referral Referred to [facility] Med P.C.: Yes
[2018-03-28] MEDS ORDERED: POTASSIUM CHLORIDE ORAL LIQUID 20 MEQ/15 ML PO ONE (07:09)
[2018-03-28] MEDS ORDERED: MAGNESIUM SULF 50% (8.12 MEQ/2 ML-1 GM VIAL) IVPB ONE (07:10)
--- NOTE | 2018-03-28 09:32 | PN ---
Progress Note (short form) - Note Progress Note: more awake comfortable All follow-ups noted NG tube placed--- for nutrition and medications Blood pressure on the higher side--- add amlodipine. Vital Signs Temp 97.7 F 03/28/18 08:00 Pulse 72 03/28/18 08:00 Resp 16 03/28/18 08:00 BP 168/68 03/28/18 08:00 Pulse Ox 97 03/27/18 19:30 Intake & Output 03/27/18 03/27/18 03/28/18 11:59 23:59 11:59 Intake Total 200 440 Output Total 300 800 800 Balance -300 -600 -360 Weight 125 lb 1 oz 123 lb 7 oz Intake: IVPB 200 Tube Feeding 320 Tube Irrigant 120 Output: Urine 300 800 800 Penny 300 800 800 Other: Voiding Method External Catheter External Catheter Bowel Movement Yes # Bowel Movements 2 Weight Measurement Method Built in Bedscale Built in Bedscale Active Medications Acetaminophen (Ofirmev Injection -) 1,000 mg IVPB Q6H PRN PRN Reason: PAIN LEVEL 6-10 Last Admin: 03/19/18 11:52 Dose: 1,000 mg Atorvastatin Calcium (Lipitor -) 10 mg NGT HS [facility] Last Admin: 03/27/18 21:33 Dose: 10 mg Brimonidine Tartrate (Alphagan 0.2% -) 1 drop OD DAILY [facility] Last Admin: 03/27/18 10:11 Dose: 1 drop Chlorhexidine Gluconate (Hibiclens For Decolonization -) 1 applic TP HS [facility] Last Admin: 03/27/18 21:33 Dose: 1 applic Chlorhexidine Gluconate (Peridex -) 15 ml MM BID [facility] Last Admin: 03/27/18 21:33 Dose: Not Given Ceftriaxone Sodium 1 gm/ (Dextrose) 50 mls @ 100 mls/hr IVPB DAILY [facility]; Protocol Last Admin: 03/27/18 10:01 Dose: 100 mls/hr Levetiracetam (Keppra Injection -) 1,000 mg IVPB BID [facility] Last Admin: 03/27/18 21:33 Dose: 1,000 mg Levothyroxine Sodium (Synthroid Injection -) 25 mcg IVPUSH 0700 [facility] Last Admin: 03/28/18 06:56 Dose: 25 mcg Metoprolol Tartrate (Lopressor -) 25 mg NGT BID [facility] Last Admin: 08/30/18 21:32 Dose: 25 mg Pantoprazole Sodium (Protonix Iv) 40 mg IVPUSH DAILY [facility] Last Admin: 03/27/18 10:02 Dose: 40 mg Phenytoin Sodium (Dilantin Injection -) 100 mg IVPB BID [facility] Last Admin: 03/27/18 21:33 Dose: 100 mg Senna (Senna Oral Solution -) 8.8 mg PO HS [facility] Last Admin: 03/27/18 21:33 Dose: Not Given Timolol Maleate (Timoptic 0.5%) 1 drop OD DAILY [facility] Last Admin: 03/27/18 10:00 Dose: 1 drop CBC, BMP 03/28/18 05:30 03/28/18 05:30 cxr -- no change. PHYSICAL EXAM awake--do not follow commands. [id number] lungs-bilateral breath sounds-- diminished at bases abd-soft,nt,bs + LE- no edema. A/P improved continue present care abx monitor closely neuro and critical care following discussed with critical care team Monitor blood pressure Fix electrolytes Will follow Problem List - Problems (1) HTN (hypertension) Code(s): I10 - ESSENTIAL (PRIMARY) HYPERTENSION Qualifiers: Hypertension type: essential hypertension Qualified Code(s): I10 - Essential (primary) hypertension (2) Hypothyroid Code(s): E03.9 - HYPOTHYROIDISM, UNSPECIFIED Qualifiers: Hypothyroidism type: other Qualified Code(s): E03.8 - Other specified hypothyroidism (3) S/P craniotomy Code(s): Z98.890 - OTHER SPECIFIED POSTPROCEDURAL STATES (4) Subdural hemorrhage Code(s): I62.00 - NONTRAUMATIC SUBDURAL HEMORRHAGE, UNSPECIFIED (5) Hypokalemia Code(s): E87.6 - HYPOKALEMIA
--- NOTE | 2018-03-28 09:34 | PN ---
Teaching Attending Note Name of Resident: China Landry ATTENDING PHYSICIAN STATEMENT I saw and evaluated the patient. I reviewed the resident's note and discussed the case with the resident. I agree with the resident's findings and plan as documented. SUBJECTIVE: Pt seen and examined in the ICU. Remains on ventimask 40% saturating well. Slightly more alert. OBJECTIVE: Vital Signs Period Temp Pulse Resp BP Sys/Michel Pulse Ox Last 24 Hr 97.7 F-99.7 F 62-95 16-22 139-172/63-80 97-98 Intake & Output 03/25/18 03/26/18 03/27/18 03/28/18 23:59 23:59 23:59 23:59 Intake Total 1130 1370 200 440 Output Total 950 1700 1100 800 Balance 180 -330 -900 -360 Weight 59.477 kg 59.2 kg 56.727 kg 55.99 kg Gen: more alert Heart: RRR Lung: scattered rhonchi Abd: soft, nontender Ext: no edema CBC, BMP 03/28/18 05:30 03/28/18 05:30 Active Medications Acetaminophen (Ofirmev Injection -) 1,000 mg IVPB Q6H PRN PRN Reason: PAIN LEVEL 6-10 Last Admin: 03/19/18 11:52 Dose: 1,000 mg Amlodipine Besylate (Norvasc -) 5 mg PO DAILY KRISTY Atorvastatin Calcium (Lipitor -) 10 mg NGT HS [facility] Last Admin: 03/27/18 21:33 Dose: 10 mg Brimonidine Tartrate (Alphagan 0.2% -) 1 drop OD DAILY [facility]ST[facility] Last Admin: 03/27/18 10:11 Dose: 1 drop Chlorhexidine Gluconate (Hibiclens For Decolonization -) 1 applic TP HS [facility] Last Admin: 03/27/18 21:33 Dose: 1 applic Chlorhexidine Gluconate (Peridex -) 15 ml MM BID [facility] Last Admin: 03/27/18 21:33 Dose: Not Given Furosemide (Lasix Injection -) 20 mg IVPUSH ONCE ONE Stop: 03/28/18 09:29 Ceftriaxone Sodium 1 gm/ (Dextrose) 50 mls @ 100 mls/hr IVPB DAILY [facility]; Protocol Last Admin: 03/27/18 10:01 Dose: 100 mls/hr Levetiracetam (Keppra Injection -) 1,000 mg IVPB BID [facility] Last Admin: 03/27/18 21:33 Dose: 1,000 mg Levothyroxine Sodium (Synthroid Injection -) 25 mcg IVPUSH 0700 [facility] Last Admin: 03/28/18 06:56 Dose: 25 mcg Losartan Potassium (Cozaar -) 50 mg PO DAILY [facility] Metoprolol Tartrate (Lopressor -) 25 mg NGT BID [facility] Last Admin: 03/27/18 21:32 Dose: 25 mg Pantoprazole Sodium (Protonix Iv) 40 mg IVPUSH DAILY [facility] Last Admin: 03/27/18 10:02 Dose: 40 mg Phenytoin Sodium (Dilantin Injection -) 100 mg IVPB BID [facility] Last Admin: 03/27/18 21:33 Dose: 100 mg Senna (Senna Oral Solution -) 8.8 mg PO HS [facility] Last Admin: 03/27/18 21:33 Dose: Not Given Timolol Maleate (Timoptic 0.5%) 1 drop OD DAILY [facility] Last Admin: 03/27/18 10:00 Dose: 1 drop ASSESSMENT AND PLAN: Acute Respiratory Failure Pneumonia likely Aspiration Sepsis Acute on Chronic Subdural Hematoma s/p [place] Hole/Evacuation of Hematoma Seizures +Troponins likely Demand Ischemia Atrial Fibrillation Acute Kidney Injury HTN CKD Hypothyroidism - taper FiO2 to keep SpO2 >90%, can try nasal cannula - continue antibiotics - rate control - defer anticoagulation due to subdural hematoma - monitor urine output, creatinine - replete lytes - continue antiepileptics per neuro - swallow eval when more alert - mechanical DVT prophylaxis - continue ICU monitoring - prognosis guarded critical care time spent in reviewing chart, evaluating patient and formulating plan 35 min
[2018-03-28] MEDS ORDERED: FUROSEMIDE 40 MG/4 ML INJECTABLE VIAL IVPUSH ONE (09:45)
[2018-03-28] MEDS ORDERED: cefTRIAXone SODIUM 1 GM VIAL ONE (09:59)
[2018-03-28] MEDS ORDERED: DEXTROSE 5%-WATER - 50 ML IVPB ONE (10:00)
[2018-03-28] MEDS: levETIRAcetam 500 MG/5 ML INJECTION VIAL IVPB SCH ×2 (10:07→21:32)
[2018-03-28] MEDS: CEFTRIAXONE 1 GM in DEXTROSE 5%-WATER - 50 ML IVPB SCH (10:08)
[2018-03-28] MEDS: PANTOPRAZOLE SODIUM 40 MG VIAL IVPUSH SCH (10:09)
[2018-03-28] MEDS: TIMOLOL 0.5% OPHTHALMIC SOL 5 ML BOTTLE OD SCH (10:09)
[2018-03-28] MEDS: LOSARTAN POTASSIUM 50 MG TABLET (FP) PO SCH (10:09)
[2018-03-28] MEDS: BRIMONIDINE TARTRATE 0.2% OPHTHALMIC 5 ML BOTTLE OD SCH (10:09)
[2018-03-28] MEDS: METOPROLOL TARTRATE 25 MG TABLET (FP) NGT SCH ×2 (10:09→21:32)
[2018-03-28] MEDS: amLODIPine BESYLATE 5 MG TABLET (FP) PO SCH (10:09)
[2018-03-28] MEDS: CHLORHEXIDINE GLUCONATE 0.12% 15ML CUP MM SCH ×2 (10:10→21:34)
[2018-03-28] MEDS: PHENYTOIN SODIUM 100 MG/2 ML VIAL IVPB SCH ×2 (10:10→21:32)
--- NOTE | 2018-03-28 11:28 | PN ---
Progress Note (short form) - Note Progress Note: 87 year old male had seizure after subdural hematoma evacuation .He initially came from [place] for mental status change. He has history of craniotomy and evacuation of subdural hematoma on February [address] Rad Wilson. Patient under went repeat craniotectomy and hematoma evacuation. SUBJECTIVE : He is extubated and had repeat ct head , unchanged. He is able to track and opens his eye, and withdraw to pain Neurological Examinatoin extubated, has ng tube in place opens eye spontaneously , not able to communicate and track objects no twitching was seen, pupils are small and left side there is eivdence of old surgery ? glaucoma withdraws to painful stimuli CT scan done on march 27 remain unchanged Assessment- 1. 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 Focal seizure secondary to subdural and history of craniotectomy twice , seizure controlled , continue dilantin and keppra for now continue supportive treatment Thanking you os much Jerardo Stokes MD
--- NOTE | 2018-03-28 16:42 | PN ---
Progress Note, Physician History of Present Illness: Resting and maintaining adequate oxygen levels on NC. Remains in SR. - Current Medication List Current Medications: Active Medications Acetaminophen (Ofirmev Injection -) 1,000 mg IVPB Q6H PRN PRN Reason: PAIN LEVEL 6-10 Last Admin: 03/19/18 11:52 Dose: 1,000 mg Amlodipine Besylate (Norvasc -) 5 mg PO DAILY [facility] Last Admin: 03/28/18 10:09 Dose: 5 mg Atorvastatin Calcium (Lipitor -) 10 mg NGT HS [facility] Last Admin: 03/27/18 21:33 Dose: 10 mg Brimonidine Tartrate (Alphagan 0.2% -) 1 drop OD DAILY [facility] Last Admin: 03/28/18 10:09 Dose: 1 drop Chlorhexidine Gluconate (Hibiclens For Decolonization -) 1 applic TP [facility] Last Admin: 03/27/18 21:33 Dose: 1 applic Chlorhexidine Gluconate (Peridex -) 15 ml MM BID [facility] Last Admin: 03/28/18 10:10 Dose: 15 ml Ceftriaxone Sodium 1 gm/ (Dextrose) 50 mls @ 100 mls/hr IVPB DAILY [facility]; Protocol Last Admin: 03/28/18 10:08 Dose: 100 mls/hr Levetiracetam (Keppra Injection -) 1,000 mg IVPB BID [facility] Last Admin: 03/28/18 10:07 Dose: 1,000 mg Levothyroxine Sodium (Synthroid Injection -) 25 mcg IVPUSH 0700 [facility] Last Admin: 03/28/18 06:56 Dose: 25 mcg Losartan Potassium (Cozaar -) 50 mg PO DAILY [facility] Last Admin: 03/28/18 10:09 Dose: 50 mg Metoprolol Tartrate (Lopressor -) 25 mg NGT BID [facility] Last Admin: 03/28/18 10:09 Dose: 25 mg Pantoprazole Sodium (Protonix Iv) 40 mg IVPUSH DAILY [facility] Last Admin: 03/28/18 10:09 Dose: 40 mg Phenytoin Sodium (Dilantin Injection -) 100 mg IVPB BID [facility] Last Admin: 03/28/18 10:10 Dose: 100 mg Senna (Senna Oral Solution -) 8.8 mg PO [facility] Last Admin: 03/27/18 21:33 Dose: Not Given Timolol Maleate (Timoptic 0.5%) 1 drop OD DAILY [facility] Last Admin: 03/28/18 10:09 Dose: 1 drop - Objective Vital Signs: Vital Signs Temperature 98.8 F 03/28/18 12:00 Pulse Rate 60 03/28/18 16:00 Respiratory Rate 18 03/28/18 16:00 Blood Pressure 136/58 03/28/18 16:00 O2 Sat by Pulse Oximetry (%) 98 03/28/18 16:21 Constitutional: Yes: No Distress, Calm, Thin Neck: Yes: Supple Cardiovascular: Yes: Regular Rate and Rhythm Respiratory: Yes: Regular, Diminished, On Nasal O2 Gastrointestinal: Yes: Normal Bowel Sounds, Soft Edema: No Labs: CBC, BMP 03/28/18 05:30 03/28/18 05:30 INR, PTT INR 1.35 (0.83-1.09) H 03/17/18 05:30 Problem List - Problems (1) Demand ischemia Code(s): I24.8 - OTHER FORMS OF ACUTE ISCHEMIC HEART DISEASE (2) Atrial flutter Code(s): I48.92 - UNSPECIFIED ATRIAL FLUTTER Qualifiers: Atrial flutter type: atypical Qualified Code(s): I48.4 - Atypical atrial flutter (3) S/P CABG (coronary artery bypass graft) Code(s): Z95.1 - PRESENCE OF AORTOCORONARY BYPASS GRAFT (4) History of endovascular stent graft for abdominal aortic aneurysm (AAA) Code(s): Z95.828 - PRESENCE OF OTHER VASCULAR IMPLANTS AND GRAFTS (5) Focal seizures Code(s): R56.9 - UNSPECIFIED CONVULSIONS (6) History of craniotomy Code(s): Z98.890 - OTHER SPECIFIED POSTPROCEDURAL STATES (7) Pneumonia Code(s): J18.9 - PNEUMONIA, UNSPECIFIED ORGANISM Qualifiers: Pneumonia type: aspiration pneumonia (8) MALINDA (acute kidney injury) Code(s): N17.9 - ACUTE KIDNEY FAILURE, UNSPECIFIED (9) Aneurysm of infrarenal abdominal aorta Code(s): I71.4 - ABDOMINAL AORTIC ANEURYSM, WITHOUT RUPTURE (10) HTN (hypertension) Code(s): I10 - ESSENTIAL (PRIMARY) HYPERTENSION Qualifiers: Hypertension type: essential hypertension Qualified Code(s): I10 - Essential (primary) hypertension (11) Hypothyroid Code(s): E03.9 - HYPOTHYROIDISM, UNSPECIFIED Qualifiers: Hypothyroidism type: other Qualified Code(s): E03.8 - Other specified hypothyroidism (12) Subdural hemorrhage Code(s): I62.00 - NONTRAUMATIC SUBDURAL HEMORRHAGE, UNSPECIFIED (13) Hyperlipidemia Code(s): E78.5 - HYPERLIPIDEMIA, UNSPECIFIED Qualifiers: Hyperlipidemia type: pure hypercholesterolemia Qualified Code(s): E78.00 - Pure hypercholesterolemia, unspecified; E78.0 - Pure hypercholesterolemia (14) Hypokalemia Code(s): E87.6 - HYPOKALEMIA Assessment/Plan Mild cLVH, normal LVEF 65%, normal RV size and fxn, mild LAE, mild MR , AR and mod TR 1. Post acute Respiratory Failure referable to probable aspiration pneumonia 2. Paroxysmal Atypical atrial flutter [id number] score of 5 currently on no A/ C related to subdural hematoma 3. CAD post CABG angina pectoris demand ischemic injury 4. Diastolic LV dysfunction with class 0-I NYHA classification LV failure, compensated/euvolemic 5. Acute on Chronic Subdural Hematoma post [place] Hole/Evacuation of Hematoma 6. Seizure disorder 7. HTN 8. Hypercholesterolemia 9. AAA post EVAR 10. Hypothyroidism 11. Acute on chronic kidney Injury improved 12. Anemia PLAN: 1. Continue Lopressor 25 bid 2. Continue Diovan 80 qd 3. Continue Lipitor 10 qhs 4. Defer anticoagulation for atrial flutter with [id number] score of 5 due to subdural hematoma 5. Antibiotics as per primary team 6. Continue anti-epileptics per neuro service 7. Taper FiO2 to keep SpO2 >90%, complete abx course 8. Swallow eval when more alert 9. Mechanical DVT and GI prophylaxis, replete K
[2018-03-28] MEDS: ATORVASTATIN CA 10 MG TABLET (FP) NGT SCH (21:32)
[2018-03-28] MEDS: CHLORHEXIDINE GLUCONATE 4% CLEANSER FOR DECOLONIZATION TP SCH (21:32)
[2018-03-29] MEDS ORDERED: PT OWN MED DRAWER 7, Y5N ONE ×3 (04:21→09:48)
[2018-03-29 06:12] LABS: BASO % 0.5 % (0-2.0); EOS % 8.3 % (0-4.5); HEMATOCRIT 28.8 % (35.4-49); LYMPH % 15.9 % (8-40); MCH 29.2 pg (25.7-33.7); MCHC 34.8 g/dl (32.0-35.9); MEAN CELL VOLUME 83.8 fl (80-96); MEAN PLT VOLUME 6.4 fl (7.5-11.1); MONO % 12.6 % (3.8-10.2); NEUT % 62.7 % (42.8-82.8); PLATELET COUNT 335 K/MM3 (134-434); RBC 3.44 M/mm3 (4.00-5.60); WHITE BLOOD COUNT 8.7 K/mm3 (4.0-10.0)
[2018-03-29] MEDS: SENNOSIDES 8.8 MG/5 ML BULK BOTTLE PO SCH ×2 (06:34→22:29)
[2018-03-29] MEDS: LEVOTHYROXINE SODIUM 100 MCG VIAL IVPUSH SCH (06:34)
[2018-03-29 06:44] LABS: ALBUMIN 2.2 g/dl (3.4-5.0); ANION GAP 8 MMOL/L (8-16); BLOOD UREA NITROGEN 13 mg/dL (7-18); CALCIUM 7.9 mg/dL (8.5-10.1); CHLORIDE 96 mmol/L (98-107); CO2 30 mmol/L (21-32); GLUCOSE,RANDOM 117 mg/dL (74-106); MAGNESIUM 1.7 mg/dL (1.8-2.4); POTASSIUM 3.3 mmol/L (3.5-5.1); SODIUM 134 mmol/L (136-145)
[2018-03-29 06:48] LABS: ALK PHOS 118 U/L (45-117); BILIRUBIN,TOTAL 0.1 mg/dL (0.2-1.0); CREATININE 1.2 mg/dL (0.7-1.3); PHOSPHOROUS 2.5 mg/dL (2.5-4.9); SGOT/AST 69 U/L (15-37); SGPT/ALT 37 U/L (12-78); TOT PROT 5.5 g/dl (6.4-8.2)
[2018-03-29] MEDS ORDERED: ACETYLCYSTEINE 20% 200MG/ML 30 ML VIAL *FOR ORAL / INH USE ONLY NEB ONE ×2 (08:11→08:45)
[2018-03-29] MEDS ORDERED: ALBUTEROL SO4 0.083% IH SOL 2.5 MG/3 ML VIAL.NEB. NEB ONE (08:45)
[2018-03-29] MEDS ORDERED: cefTRIAXone SODIUM 1 GM VIAL ONE (08:51)
[2018-03-29] MEDS ORDERED: DEXTROSE 5%-WATER - 50 ML IVPB ONE (08:52)
--- NOTE | 2018-03-29 09:09 | PN ---
Physical Exam: SUBJECTIVE: Patient seen and examined. No acute events overnight. sating 90s on 4L NC. Eye opening. 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 NG tube feeds. OBJECTIVE: Vital Signs Period Temp Pulse Resp BP Sys/Michel Pulse Ox Last 24 Hr 98.2 F-98.8 F 60-90 16-24 113-163/46-73 98-99 GENERAL: The patient is awake, awake, non responsive to stimuli. HEAD: s/p michelle hole evac; with bandage; no erythema, drainage, swelling EYES: equal, reactive pupils ENT:NGT with crusted blood, dry nasal, mucus membranes LUNGS: scattered rhonchi HEART: Regular rate and rhythm, S1, S2 ABDOMEN: Soft, nontender, nondistended, normoactive bowel sounds, no guarding, EXTREMITIES: 2+ pulses, warm, well-perfused, no edema. NEUROLOGICAL:does not follow simple commands; pest control service sales agent strength 1/5 b/l ; unable to move arms; legs when asked; non verbal Laboratory Results - last 24 hr 03/29/18 03/29/18 05:30 05:30 WBC 8.7 RBC 3.44 L Hgb 10.0 L Hct 28.8 L MCV 83.8 MCH 29.2 MCHC 34.8 RDW 13.0 Plt Count 335 MPV 6.4 L Absolute Neuts (auto) 5.5 Neutrophils % 62.7 Lymphocytes % 15.9 Monocytes % 12.6 H Eosinophils % 8.3 H Basophils % 0.5 Nucleated RBC % 0 Sodium 134 L Potassium 3.3 L Chloride 96 L Carbon Dioxide 30 Anion Gap 8 BUN 13 Creatinine 1.2 Creat Clearance w eGFR 57.27 Random Glucose 117 H Calcium 7.9 L Phosphorus 2.5 Magnesium 1.7 L Total Bilirubin 0.1 L AST 69 H D ALT 37 D Alkaline Phosphatase 118 H Total Protein 5.5 L Albumin 2.2 L Active Medications Generic Name Dose Route Start Last Admin Trade Name Freq PRN Reason Stop Dose Admin Acetaminophen 1,000 mg 03/18/18 15:11 03/19/18 11:52 Ofirmev Injection - IVPB 1,000 mg Q6H PRN Administration PAIN LEVEL 6-10 Amlodipine Besylate 5 mg 03/28/18 10:00 03/28/18 10:09 Norvasc - PO 5 mg DAILY [facility] Administration Atorvastatin Calcium 10 mg 03/21/18 22:00 03/28/18 21:32 Lipitor - NGT 10 mg HS [facility] Administration Brimonidine Tartrate 1 drop 03/18/18 10:00 03/28/18 10:09 Alphagan 0.2% - OD 1 drop DAILY [facility] Administration Chlorhexidine Gluconate 1 applic 03/17/18 22:00 03/28/18 21:32 Hibiclens For Decolonization - TP 1 applic HS [facility] Administration Chlorhexidine Gluconate 15 ml 03/19/18 22:00 03/28/18 21:34 Peridex - MM 15 ml BID [facility] Administration Ceftriaxone Sodium 1 gm/ 50 mls @ 100 mls/hr 03/23/18 10:00 03/28/18 10:08 Dextrose IVPB 100 mls/hr DAILY [facility] Administration Protocol Levetiracetam 1,000 mg 03/19/18 10:00 03/28/18 21:32 Keppra Injection - IVPB 1,000 mg BID [facility] Administration Levothyroxine Sodium 25 mcg 03/19/18 07:45 03/29/18 06:34 Synthroid Injection - IVPUSH 25 mcg 0700 [facility] Administration Losartan Potassium 50 mg 03/28/18 10:00 03/28/18 10:09 Cozaar - PO 50 mg DAILY [facility] Administration Metoprolol Tartrate 25 mg 03/21/18 11:30 03/28/18 21:32 Lopressor - NGT 25 mg BID [facility] Administration Pantoprazole Sodium 40 mg 03/17/18 10:00 03/28/18 10:09 Protonix Iv IVPUSH 40 mg DAILY [facility] Administration Phenytoin Sodium 100 mg 03/23/18 18:00 03/28/18 21:32 Dilantin Injection - IVPB 100 mg BID [facility] Administration Senna 8.8 mg 03/26/18 07:30 03/29/18 06:34 Senna Oral Solution - PO Not Given HS [facility] Timolol Maleate 1 drop 03/18/18 10:00 03/28/18 10:09 Timoptic 0.5% OD 1 drop DAILY [facility] Administration Current Medications Generic Name Dose Route Start Last Admin Trade Name Freq PRN Reason Stop Dose Admin Acetaminophen 1,000 mg 03/18/18 15:11 03/19/18 11:52 Ofirmev Injection - IVPB 1,000 mg Q6H PRN Administration PAIN LEVEL 6-10 Amlodipine Besylate 5 mg 03/28/18 10:00 03/29/18 09:13 Norvasc - PO 5 mg DAILY [facility] Administration Atorvastatin Calcium 10 mg 03/21/18 22:00 03/28/18 21:32 Lipitor - NGT 10 mg HS [facility] Administration Brimonidine Tartrate 1 drop 03/18/18 10:00 03/29/18 09:13 Alphagan 0.2% - OD 1 drop DAILY [facility] Administration Chlorhexidine Gluconate 1 applic 03/17/18 22:00 03/28/18 21:32 Hibiclens For Decolonization - TP 1 applic HS [facility] Administration Chlorhexidine Gluconate 15 ml 03/19/18 22:00 03/29/18 09:14 Peridex - MM 15 ml BID [facility] Administration Ceftriaxone Sodium 1 gm/ 50 mls @ 100 mls/hr 03/23/18 10:00 03/29/18 09:13 Dextrose IVPB 100 mls/hr DAILY [facility] Administration Protocol Potassium Chloride 10 meq in 100 mls @ 100 mls/hr 03/29/18 10:00 Potassium Chloride 10 Meq Premix Ivpb - IVPB 03/29/18 12:59 Q60M [facility] Levetiracetam 1,000 mg 03/19/18 10:00 03/29/18 09:12 Keppra Injection - IVPB 1,000 mg BID [facility] Administration Levothyroxine Sodium 25 mcg 03/19/18 07:45 03/29/18 06:34 Synthroid Injection - IVPUSH 25 mcg 0700 [facility] Administration Losartan Potassium 50 mg 03/28/18 10:00 03/29/18 09:14 Cozaar - PO 50 mg DAILY [facility] Administration Metoprolol Tartrate 25 mg 03/21/18 11:30 03/29/18 10:30 Lopressor - NGT Not Given BID [facility] Pantoprazole Sodium 40 mg 03/17/18 10:00 03/29/18 09:13 Protonix Iv IVPUSH 40 mg DAILY [facility] Administration Phenytoin Sodium 100 mg 03/23/18 18:00 03/29/18 09:12 Dilantin Injection - IVPB 100 mg BID [facility] Administration Senna 8.8 mg 03/26/18 07:30 03/29/18 06:34 Senna Oral Solution - PO Not Given HS [facility] Timolol Maleate 1 drop 03/18/18 10:00 03/29/18 09:13 Timoptic 0.5% OD 1 drop DAILY [facility] Administration ASSESSMENT/PLAN: This is a 87 year old male with significant medical history of CAD, a flutter, hx of subdural hematoma s/p [place]/Evacuation, presented with altered mental status, acute hypoxic respiratory failure secondary to likely aspiration pneumonia. #Acute hypoxic respiratory failure secondary to aspiration pna: improved/ resolving -extubated -sating 90s on 3L NC; continue to taper down FiO2 -ceftriaxone for 7 days -cont monitor vitals, pulse ox; -cxr improved #Paroxysmal atrial flutter; currently in sinus -rate controlled with metoprolol -chadvasc 5; hold AC due to hx of subdural/michelle hole evac -scds -appreciate cardio #Diastolic heart failure: -received 20mg IV lasix yesterday with adequate response; -will give another 20mg IV lasix today; -I/Os; daily weights -monitor electrolytes -appreciate cardio #Hx of subdural hematoma; s/p [place] evacuation; 02/12 -neuro status with minimal improvement; -cont prophylactic antiepileptics; keppra -neuro checks -repeat head CT was negative for acute changes; showed some improvement -swallow eval when appropriate; now on tube feeds -appreciate neuro and neuro surgery #Seizure disorder; currently no seizure activity -cont AEs #HTN: -cont losartan ; added amlodipine for better BP control #HLD: -cont statin #hypothyroid: -cont levothyroxine #acute on Chronic CKD: improving -monitor electrolytes while on diuretics #FEN: -hypokalemia: replace -hypomag: replace -Cont tube feeds DVT: ppl: scds GI: protinix Disposition: stable to transfer to [facility] Problem List - Problems (1) Atrial flutter Code(s): I48.92 - UNSPECIFIED ATRIAL FLUTTER Qualifiers: Atrial flutter type: atypical Qualified Code(s): I48.4 - Atypical atrial flutter (2) Electrolyte abnormality Code(s): E87.8 - OTH DISORDERS OF ELECTROLYTE AND FLUID BALANCE, NEC (3) Focal seizures Code(s): R56.9 - UNSPECIFIED CONVULSIONS (4) History of craniotomy Code(s): Z98.890 - OTHER SPECIFIED POSTPROCEDURAL STATES (5) History of endovascular stent graft for abdominal aortic aneurysm (AAA) Code(s): Z95.828 - PRESENCE OF OTHER VASCULAR IMPLANTS AND GRAFTS (6) Hyperlipidemia Code(s): E78.5 - HYPERLIPIDEMIA, UNSPECIFIED Qualifiers: Hyperlipidemia type: pure hypercholesterolemia Qualified Code(s): E78.00 - Pure hypercholesterolemia, unspecified; E78.0 - Pure hypercholesterolemia (7) Hypokalemia Code(s): E87.6 - HYPOKALEMIA (8) Pneumonia Code(s): J18.9 - PNEUMONIA, UNSPECIFIED ORGANISM Qualifiers: Pneumonia type: aspiration pneumonia (9) S/P CABG (coronary artery bypass graft) Code(s): Z95.1 - PRESENCE OF AORTOCORONARY BYPASS GRAFT (10) MALINDA (acute kidney injury) Code(s): N17.9 - ACUTE KIDNEY FAILURE, UNSPECIFIED (11) Acute renal insufficiency Code(s): N28.9 - DISORDER OF KIDNEY AND URETER, UNSPECIFIED (12) Aneurysm of infrarenal abdominal aorta Code(s): I71.4 - ABDOMINAL AORTIC ANEURYSM, WITHOUT RUPTURE (13) CAD (coronary artery disease) Code(s): I25.10 - ATHSCL HEART DISEASE OF [place] CORONARY ARTERY W/O ANG PCTRS Qualifiers: [place] vs. transplanted heart: [place] heart Associated angina: without angina (14) HTN (hypertension) Code(s): I10 - ESSENTIAL (PRIMARY) HYPERTENSION Qualifiers: Hypertension type: essential hypertension Qualified Code(s): I10 - Essential (primary) hypertension (15) Hypothyroid Code(s): E03.9 - HYPOTHYROIDISM, UNSPECIFIED Qualifiers: Hypothyroidism type: other Qualified Code(s): E03.8 - Other specified hypothyroidism (16) S/P craniotomy Code(s): Z98.890 - OTHER SPECIFIED POSTPROCEDURAL STATES (17) Spinal stenosis Code(s): M48.00 - SPINAL STENOSIS, SITE UNSPECIFIED Qualifiers: Spinal region: unspecified Qualified Code(s): M48.00 - Spinal stenosis, site unspecified Visit type - Emergency Visit Emergency Visit: Yes ED Registration Date: 03/16/18 Care time: The patient presented to the Emergency Department on the above date and was hospitalized for further evaluation of their emergent condition. - New Patient This patient is new to me today: Yes Date on this admission: 03/29/18 - Critical Care Critical Care patient: Yes Total Critical Care Time (in minutes): 40 Critical Care Statement: The care of this patient involved high complexity decision making to prevent further life threatening deterioration of the patient 's condition and/or to evaluate & treat vital organ system(s) failure or risk of failure.
[2018-03-29] MEDS: levETIRAcetam 500 MG/5 ML INJECTION VIAL IVPB SCH ×2 (09:12→22:31)
[2018-03-29] MEDS: PHENYTOIN SODIUM 100 MG/2 ML VIAL IVPB SCH ×2 (09:12→22:42)
[2018-03-29] MEDS: amLODIPine BESYLATE 5 MG TABLET (FP) PO SCH (09:13)
[2018-03-29] MEDS: CEFTRIAXONE 1 GM in DEXTROSE 5%-WATER - 50 ML IVPB SCH (09:13)
[2018-03-29] MEDS: TIMOLOL 0.5% OPHTHALMIC SOL 5 ML BOTTLE OD SCH (09:13)
[2018-03-29] MEDS: BRIMONIDINE TARTRATE 0.2% OPHTHALMIC 5 ML BOTTLE OD SCH (09:13)
[2018-03-29] MEDS: PANTOPRAZOLE SODIUM 40 MG VIAL IVPUSH SCH (09:13)
[2018-03-29] MEDS: LOSARTAN POTASSIUM 50 MG TABLET (FP) PO SCH (09:14)
[2018-03-29] MEDS: CHLORHEXIDINE GLUCONATE 0.12% 15ML CUP MM SCH (09:14)
--- NOTE | 2018-03-29 09:58 | PN ---
Progress Note (short form) - Note Progress Note: overall same no new changes Vital Signs Temp 98.4 F 03/29/18 08:00 Pulse 62 03/29/18 08:00 Resp 18 03/29/18 09:00 BP 158/73 03/29/18 08:00 Pulse Ox 98 03/29/18 09:00 Intake & Output 03/28/18 03/28/18 03/29/18 11:59 23:59 11:59 Intake Total 440 880 914 Output Total 800 900 Balance -360 -20 914 Weight 123 lb 7 oz 120 lb 13.013 oz Intake: IVPB 250 200 Tube Feeding 320 510 594 Tube Irrigant 120 120 120 Output: Urine 800 900 External Catheter 900 Penny 800 Other: Voiding Method External Catheter Incontinent Diaper # Unmeasured Voids Void 1 3 Bowel Movement Yes Yes # Bowel Movements 2 1 Body Mass Index (BMI) 18.7 Weight Measurement Method Built in Bedscale Built in Bedscale Active Medications Acetaminophen (Ofirmev Injection -) 1,000 mg IVPB Q6H PRN PRN Reason: PAIN LEVEL 6-10 Last Admin: 03/19/18 11:52 Dose: 1,000 mg Amlodipine Besylate (Norvasc -) 5 mg PO DAILY [facility] Last Admin: 03/29/18 09:13 Dose: 5 mg Atorvastatin Calcium (Lipitor -) 10 mg NGT [facility] Last Admin: 03/28/18 21:32 Dose: 10 mg Brimonidine Tartrate (Alphagan 0.2% -) 1 drop OD DAILY [facility] Last Admin: 03/29/18 09:13 Dose: 1 drop Chlorhexidine Gluconate (Hibiclens For Decolonization -) 1 applic TP [facility] Last Admin: 03/28/18 21:32 Dose: 1 applic Chlorhexidine Gluconate (Peridex -) 15 ml MM BID [facility] Last Admin: 03/29/18 09:14 Dose: 15 ml Ceftriaxone Sodium 1 gm/ (Dextrose) 50 mls @ 100 mls/hr IVPB DAILY [facility]; Protocol Last Admin: 03/29/18 09:13 Dose: 100 mls/hr Potassium Chloride (Potassium Chloride 10 Meq Premix Ivpb -) 10 meq in 100 mls @ 100 mls/hr IVPB Q60M [facility] Stop: 03/29/18 12:59 Levetiracetam (Keppra Injection -) 1,000 mg IVPB BID [facility] Last Admin: 03/29/18 09:12 Dose: 1,000 mg Levothyroxine Sodium (Synthroid Injection -) 25 mcg IVPUSH 0700 [facility] Last Admin: 03/29/18 06:34 Dose: 25 mcg Losartan Potassium (Cozaar -) 50 mg PO DAILY [facility] Last Admin: 03/29/18 09:14 Dose: 50 mg Magnesium Sulfate (Magnesium Sulfate) 2 gm IVPB ONCE ONE Stop: 03/29/18 09:57 Metoprolol Tartrate (Lopressor -) 25 mg NGT BID [facility] Last Admin: 03/28/18 21:32 Dose: 25 mg Pantoprazole Sodium (Protonix Iv) 40 mg IVPUSH DAILY [facility] Last Admin: 03/29/18 09:13 Dose: 40 mg Phenytoin Sodium (Dilantin Injection -) 100 mg IVPB BID [facility] Last Admin: 03/29/18 09:12 Dose: 100 mg Senna (Senna Oral Solution -) 8.8 mg PO HS [facility] Last Admin: 03/29/18 06:34 Dose: Not Given Timolol Maleate (Timoptic 0.5%) 1 drop OD DAILY [facility] Last Admin: 03/29/18 09:13 Dose: 1 drop CBC, BMP 03/29/18 05:30 03/29/18 05:30 cxr - improved PHYSICAL EXAM awake-opens eyes cvs-[id number] lungs-bilateral breath sounds-- diminished at bases abd-soft,nt,bs + LE- no edema. A/P overall same continue present care abx monitor closely Monitor blood pressure Fix electrolytes Will follow Problem List - Problems (1) HTN (hypertension) Code(s): I10 - ESSENTIAL (PRIMARY) HYPERTENSION Qualifiers: Hypertension type: essential hypertension Qualified Code(s): I10 - Essential (primary) hypertension (2) Hypothyroid Code(s): E03.9 - HYPOTHYROIDISM, UNSPECIFIED Qualifiers: Hypothyroidism type: other Qualified Code(s): E03.8 - Other specified hypothyroidism (3) S/P craniotomy Code(s): Z98.890 - OTHER SPECIFIED POSTPROCEDURAL STATES (4) Subdural hemorrhage Code(s): I62.00 - NONTRAUMATIC SUBDURAL HEMORRHAGE, UNSPECIFIED (5) Hypokalemia Code(s): E87.6 - HYPOKALEMIA
[2018-03-29] MEDS ORDERED: MAGNESIUM SULF 50% (8.12 MEQ/2 ML-1 GM VIAL) IVPB ONE (10:00)
[2018-03-29] MEDS ORDERED: POTASSIUM CHLORIDE 20 MEQ PREMIX IVPB 100 ML IVPB ONE (10:12)
--- NOTE | 2018-03-29 10:13 | PN ---
Teaching Attending Note Name of Resident: Ligia Tierney ATTENDING PHYSICIAN STATEMENT I saw and evaluated the patient. I reviewed the resident's note and discussed the case with the resident. I agree with the resident's findings and plan as documented. SUBJECTIVE: Pt seen and examined in the ICU. Remains lethargic but arousable. Saturating well on nasal cannula. OBJECTIVE: Vital Signs Period Temp Pulse Resp BP Sys/Michel Pulse Ox Last 24 Hr 98.2 F-98.8 F 60-90 16-24 113-158/46-73 98-99 Intake & Output 03/26/18 03/27/18 03/28/18 03/29/18 23:59 23:59 23:59 23:59 Intake Total 0059 728 2180 914 Output Total 1700 1100 1700 Balance -330 -900 -380 914 Weight 59.2 kg 56.727 kg 55.99 kg 54.8 kg Gen: lethargic but arousable Heart: RRR Lung: scattered rhonchi Abd: soft, nontender Ext: no edema CBC, BMP 03/29/18 05:30 03/29/18 05:30 Active Medications Acetaminophen (Ofirmev Injection -) 1,000 mg IVPB Q6H PRN PRN Reason: PAIN LEVEL 6-10 Last Admin: 03/19/18 11:52 Dose: 1,000 mg Amlodipine Besylate (Norvasc -) 5 mg PO DAILY [facility] Last Admin: 03/29/18 09:13 Dose: 5 mg Atorvastatin Calcium (Lipitor -) 10 mg NGT HS [facility] Last Admin: 03/28/18 21:32 Dose: 10 mg Brimonidine Tartrate (Alphagan 0.2% -) 1 drop OD DAILY [facility] Last Admin: 03/29/18 09:13 Dose: 1 drop Chlorhexidine Gluconate (Hibiclens For Decolonization -) 1 applic TP HS [facility] Last Admin: 03/28/18 21:32 Dose: 1 applic Chlorhexidine Gluconate (Peridex -) 15 ml MM BID [facility] Last Admin: 03/29/18 09:14 Dose: 15 ml Furosemide (Lasix Injection -) 20 mg IVPUSH ONCE ONE Stop: 03/29/18 10:16 Ceftriaxone Sodium 1 gm/ (Dextrose) 50 mls @ 100 mls/hr IVPB DAILY [facility]; Protocol Last Admin: 03/29/18 09:13 Dose: 100 mls/hr Potassium Chloride (Potassium Chloride 10 Meq Premix Ivpb -) 10 meq in 100 mls @ 100 mls/hr IVPB Q60M [facility] Stop: 03/29/18 12:59 Levetiracetam (Keppra Injection -) 1,000 mg IVPB BID [facility] Last Admin: 03/29/18 09:12 Dose: 1,000 mg Levothyroxine Sodium (Synthroid Injection -) 25 mcg IVPUSH 0700 [facility] Last Admin: 03/29/18 06:34 Dose: 25 mcg Losartan Potassium (Cozaar -) 50 mg PO DAILY [facility] Last Admin: 03/29/18 09:14 Dose: 50 mg Metoprolol Tartrate (Lopressor -) 25 mg NGT BID [facility] Last Admin: 03/28/18 21:32 Dose: 25 mg Pantoprazole Sodium (Protonix Iv) 40 mg IVPUSH DAILY [facility] Last Admin: 03/29/18 09:13 Dose: 40 mg Phenytoin Sodium (Dilantin Injection -) 100 mg IVPB BID [facility] Last Admin: 03/29/18 09:12 Dose: 100 mg Potassium Chloride (Potassium Chloride 20 Meq Premix Ivpb -) 40 meq IVPB ONCE ONE Stop: 03/29/18 10:13 Senna (Senna Oral Solution -) 8.8 mg PO HS [facility] Last Admin: 03/29/18 06:34 Dose: Not Given Timolol Maleate (Timoptic 0.5%) 1 drop OD DAILY [facility] Last Admin: 03/29/18 09:13 Dose: 1 drop ASSESSMENT AND PLAN: Acute Respiratory Failure Pneumonia likely Aspiration Sepsis Acute on Chronic Subdural Hematoma s/p [place]/Evacuation of Hematoma Seizures +Troponins likely [place] Ischemia Atrial Fibrillation Acute Kidney Injury HTN CKD Hypothyroidism - O2 to keep SpO2 >90% - continue antibiotics - rate control - defer anticoagulation due to subdural hematoma - monitor urine output, creatinine - replete lytes - continue antiepileptics per neuro - swallow eval when more alert - mechanical DVT prophylaxis - can monitor on floor with pulse oximetry critical care time spent in reviewing chart, evaluating patient and formulating plan 35 min
[2018-03-29] MEDS ORDERED: FUROSEMIDE 40 MG/4 ML INJECTABLE VIAL IVPUSH ONE (10:15)
[2018-03-29] MEDS: METOPROLOL TARTRATE 25 MG TABLET (FP) NGT SCH ×2 (10:30→22:32)
[2018-03-29] MEDS: KCL 10 MEQ IVPB 10 MEQ/100 ML INFUS.BAG IVPB SCH ×3 (11:13→13:11)
--- NOTE | 2018-03-29 13:35 | PN ---
Progress Note (short form) - Note Progress Note: 87 year old male had seizure after subdural hematoma evacuation .He initially came from [place] for mental status change. He has history of craniotomy and evacuation of subdural hematoma on February [address] Rad Wilson. Patient under went repeat craniotectomy and hematoma evacuation. SUBJECTIVE : He is slightly more responsive but not following command yet. He is afebrile. Neurological Examinatoin extubated, Seems to be more awake , not following command opens eye spontaneously , he is able tot rack objects no twitching was seen, pupils are small and left side there is eivdence of old surgery ? glaucoma withdraws to painful stimuli CT scan done on march 27 remain unchanged Meds: Keppra 1 gm iv bid, dilantin 100 mg iv bid Assessment- 1. Acute on chronic subdural , stable. 2. Focal seizure secondary to subdural and history of craniotectomy twice , seizure controlled , continue dilantin and keppra for now continue supportive treatment Thanking you os much Jerardo Stokes MD
[2018-03-29] MEDS ORDERED: ACETAMINOPHEN 1000 MG/100 ML VIAL (NON FORMULARY) IVPB PRN (15:41)
[2018-03-29] MEDS ORDERED: CHLORHEXIDINE GLUCONATE 4% CLEANSER FOR DECOLONIZATION TP SCH (22:00)
[2018-03-29] MEDS ORDERED: CHLORHEXIDINE GLUCONATE 0.12% 15ML CUP MM SCH (22:00)
[2018-03-29] MEDS: ATORVASTATIN CA 10 MG TABLET (FP) NGT SCH (22:32)
[2018-03-30] MEDS: LEVOTHYROXINE SODIUM 100 MCG VIAL IVPUSH SCH (07:35)
[2018-03-30 07:45] LABS: BASO % 0.5 % (0-2.0); EOS % 8.7 % (0-4.5); HEMATOCRIT 29.5 % (35.4-49); HEMOGLOBIN 10.4 GM/dL (11.7-16.9); LYMPH % 16.6 % (8-40); MCH 29.5 pg (25.7-33.7); MCHC 35.4 g/dl (32.0-35.9); MEAN CELL VOLUME 83.5 fl (80-96); MEAN PLT VOLUME 6.5 fl (7.5-11.1); MONO % 14.2 % (3.8-10.2); PLATELET COUNT 333 K/MM3 (134-434); RBC 3.54 M/mm3 (4.00-5.60); RDW 13.4 % (11.9-15.9); WHITE BLOOD COUNT 8.5 K/mm3 (4.0-10.0)
[2018-03-30 08:52] LABS: CHLORIDE 96 mmol/L (98-107); SODIUM 135 mmol/L (136-145)
[2018-03-30 09:04] LABS: ALBUMIN 2.1 g/dl (3.4-5.0); ALK PHOS 111 U/L (45-117); ANION GAP 12 MMOL/L (8-16); BILIRUBIN,TOTAL 0.2 mg/dL (0.2-1.0); BLOOD UREA NITROGEN 15 mg/dL (7-18); CALCIUM 8.1 mg/dL (8.5-10.1); CO2 27 mmol/L (21-32); CREATININE 1.2 mg/dL (0.7-1.3); GLUCOSE,RANDOM 125 mg/dL (74-106); PHOSPHOROUS 2.9 mg/dL (2.5-4.9); SGPT/ALT 42 U/L (12-78); TOT PROT 5.2 g/dl (6.4-8.2)
[2018-03-30 09:17] LABS: MAGNESIUM 2.2 mg/dL (1.8-2.4); POTASSIUM 3.6 mmol/L (3.5-5.1); SGOT/AST 82 U/L (15-37)
[2018-03-30] MEDS ORDERED: cefTRIAXone SODIUM 1 GM VIAL ONE (09:54)
[2018-03-30] MEDS ORDERED: DEXTROSE 5%-WATER 100 ML IVPB ONE (09:55)
[2018-03-30] MEDS: METOPROLOL TARTRATE 25 MG TABLET (FP) NGT SCH ×2 (10:26→22:19)
[2018-03-30] MEDS: amLODIPine BESYLATE 5 MG TABLET (FP) PO SCH (10:26)
[2018-03-30] MEDS: TIMOLOL 0.5% OPHTHALMIC SOL 5 ML BOTTLE OD SCH (10:27)
[2018-03-30] MEDS: LOSARTAN POTASSIUM 50 MG TABLET (FP) PO SCH (10:27)
[2018-03-30] MEDS: BRIMONIDINE TARTRATE 0.2% OPHTHALMIC 5 ML BOTTLE OD SCH (10:27)
[2018-03-30] MEDS: PANTOPRAZOLE SODIUM 40 MG VIAL IVPUSH SCH (10:28)
[2018-03-30] MEDS: levETIRAcetam 500 MG/5 ML INJECTION VIAL IVPB SCH ×2 (10:28→22:19)
[2018-03-30] MEDS: CEFTRIAXONE 1 GM in DEXTROSE 5%-WATER 100 ML IVPB SCH (10:28)
[2018-03-30] MEDS: PHENYTOIN SODIUM 100 MG/2 ML VIAL IVPB SCH ×3 (10:28→22:19)
[2018-03-30] MEDS ORDERED: PHENYTOIN SODIUM 100 MG/2 ML VIAL IVPB ONE (13:33)
--- NOTE | 2018-03-30 13:36 | PN ---
Progress Note (short form) - Note Progress Note: 87 year old male had seizure after subdural hematoma evacuation .He initially came from [place] for mental status change. He has history of craniotomy and evacuation of subdural hematoma on February [address] Rad Wilson. Patient under went repeat craniotectomy and hematoma evacuation. SUBJECTIVE : He is now on regular floor and his condition remain same. He is not following command and right sided face focal seizure noticed. Patinet is on dilantin 100 mg iv bid and keppra 1gm iv bid. He is not following command. Neurological Examinatoin He is remain comfortable, extubated and on regular floor do not follow command and no spontaneous speech is present opens eye spontaneously , not able to communicate and track objects right sided face twitching was seen pupils are small and left side there is eivdence of old surgery ? glaucoma withdraws to painful stimuli CT scan done on march 27 remain unchanged Assessment- 1. 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 Focal seizure secondary to subdural and history of craniotectomy twice , seizure controlled , continue dilantin and keppra for now there is focal twitching of face was seen I advice to give extra 500 mg of dilantina nd increse dose to 100 mg iv tid add another AED if remain to have focal seizure repeat eeg continue supportive treatment Thanking you os much Jerardo Stokes MD
[2018-03-30] MEDS ORDERED: PT OWN MED DRAWER 7, Y5N ONE (14:02)
--- NOTE | 2018-03-30 14:08 | PN ---
Progress Note, Physician History of Present Illness: Resting and maintaining adequate oxygen levels on NC. Remains in SR. - Current Medication List Current Medications: Active Medications Acetaminophen (Ofirmev Injection -) 1,000 mg IVPB Q6H PRN PRN Reason: PAIN LEVEL 6-10 Last Admin: 03/29/18 22:29 Dose: 1,000 mg Amlodipine Besylate (Norvasc -) 5 mg PO DAILY [facility] Last Admin: 03/30/18 10:26 Dose: 5 mg Atorvastatin Calcium (Lipitor -) 10 mg NGT HS [facility] Last Admin: 03/29/18 22:32 Dose: 10 mg Brimonidine Tartrate (Alphagan 0.2% -) 1 drop OD DAILY [facility] Last Admin: 03/30/18 10:27 Dose: 1 drop Ceftriaxone Sodium 1 gm/ (Dextrose) 100 mls @ 200 mls/hr IVPB DAILY [facility]; Protocol Last Admin: 03/30/18 10:28 Dose: 200 mls/hr Levetiracetam (Keppra Injection -) 1,000 mg IVPB BID [facility] Last Admin: 03/30/18 10:28 Dose: 1,000 mg Levothyroxine Sodium (Synthroid Injection -) 25 mcg IVPUSH DAILY@0700 [facility] Last Admin: 03/30/18 07:35 Dose: 25 mcg Losartan Potassium (Cozaar -) 50 mg PO DAILY [facility] Last Admin: 03/30/18 10:27 Dose: 50 mg Metoprolol Tartrate (Lopressor -) 25 mg NGT BID [facility] Last Admin: 03/30/18 10:26 Dose: 25 mg Pantoprazole Sodium (Protonix Iv) 40 mg IVPUSH DAILY [facility] Last Admin: 03/30/18 10:28 Dose: 40 mg Phenytoin Sodium (Dilantin Injection -) 100 mg IVPB TID [facility] Senna (Senna Oral Solution -) 8.8 mg PO HS [facility] Last Admin: 03/29/18 22:29 Dose: 5 ml Timolol Maleate (Timoptic 0.5%) 1 drop OD DAILY [facility] Last Admin: 03/30/18 10:27 Dose: 1 drop - Objective Vital Signs: Vital Signs Temperature 98.6 F 03/30/18 10:00 Pulse Rate 61 03/30/18 10:00 Respiratory Rate 19 03/30/18 10:00 Blood Pressure 145/59 03/30/18 10:00 O2 Sat by Pulse Oximetry (%) 98 03/29/18 21:00 Constitutional: Yes: No Distress, Calm, Thin Neck: Yes: Supple Cardiovascular: Yes: Regular Rate and Rhythm Respiratory: Yes: Regular, Diminished, On Nasal O2 Gastrointestinal: Yes: Normal Bowel Sounds, Soft Edema: No Labs: CBC, BMP 03/30/18 07:00 03/30/18 07:00 INR, PTT INR 1.35 (0.83-1.09) H 03/17/18 05:30 - ....Imaging EKG: Report Reviewed (Tele: NSR) Problem List - Problems (1) Demand ischemia Code(s): I24.8 - OTHER FORMS OF ACUTE ISCHEMIC HEART DISEASE (2) Atrial flutter Code(s): I48.92 - UNSPECIFIED ATRIAL FLUTTER Qualifiers: Atrial flutter type: atypical Qualified Code(s): I48.4 - Atypical atrial flutter (3) S/P CABG (coronary artery bypass graft) Code(s): Z95.1 - PRESENCE OF AORTOCORONARY BYPASS GRAFT (4) History of endovascular stent graft for abdominal aortic aneurysm (AAA) Code(s): Z95.828 - PRESENCE OF OTHER VASCULAR IMPLANTS AND GRAFTS (5) Focal seizures Code(s): R56.9 - UNSPECIFIED CONVULSIONS (6) History of craniotomy Code(s): Z98.890 - OTHER SPECIFIED POSTPROCEDURAL STATES (7) Pneumonia Code(s): J18.9 - PNEUMONIA, UNSPECIFIED ORGANISM Qualifiers: Pneumonia type: aspiration pneumonia (8) MALINDA (acute kidney injury) Code(s): N17.9 - ACUTE KIDNEY FAILURE, UNSPECIFIED (9) Aneurysm of infrarenal abdominal aorta Code(s): I71.4 - ABDOMINAL AORTIC ANEURYSM, WITHOUT RUPTURE (10) HTN (hypertension) Code(s): I10 - ESSENTIAL (PRIMARY) HYPERTENSION Qualifiers: Hypertension type: essential hypertension Qualified Code(s): I10 - Essential (primary) hypertension (11) Hypothyroid Code(s): E03.9 - HYPOTHYROIDISM, UNSPECIFIED Qualifiers: Hypothyroidism type: other Qualified Code(s): E03.8 - Other specified hypothyroidism (12) Subdural hemorrhage Code(s): I62.00 - NONTRAUMATIC SUBDURAL HEMORRHAGE, UNSPECIFIED (13) Hyperlipidemia Code(s): E78.5 - HYPERLIPIDEMIA, UNSPECIFIED Qualifiers: Hyperlipidemia type: pure hypercholesterolemia Qualified Code(s): E78.00 - Pure hypercholesterolemia, unspecified; E78.0 - Pure hypercholesterolemia (14) Hypokalemia Code(s): E87.6 - HYPOKALEMIA Assessment/Plan Mild cLVH, normal LVEF 65%, normal RV size and fxn, mild LAE, mild MR , AR and mod TR 1. Post acute Respiratory Failure referable to probable aspiration pneumonia 2. Paroxysmal Atypical atrial flutter -> NSR [id number] score of 5 currently on no A/C related to subdural hematoma 3. CAD post CABG angina pectoris demand ischemic injury 4. Diastolic LV dysfunction with class 0-I NYHA classification LV failure, compensated/euvolemic 5. Acute on Chronic Subdural Hematoma post [place] Hole/Evacuation of Hematoma 6. Seizure disorder 7. HTN 8. Hypercholesterolemia 9. AAA post EVAR 10. Hypothyroidism 11. Acute on chronic kidney Injury improved 12. Anemia PLAN: 1. Continue Lopressor 25 bid, Norvasc 5 qd, losartan 50 qd as renal function stabilized 2. Continue Lipitor 10 qhs 3. Defer anticoagulation for atrial flutter with [id number] score of 5 due to subdural hematoma 4. Antibiotics as per primary team 5. Continue anti-epileptics and repeat EEG per neuro service 6. Taper FiO2 to keep SpO2 >90%, complete abx course 7. Swallow eval when more alert 8. Mechanical DVT and GI prophylaxis, replete K
--- NOTE | 2018-03-30 14:40 | PN ---
Progress Note (short form) - Note Progress Note: comfortable still same lethargic afebrile Vital Signs Temp 98.6 F 03/30/18 10:00 Pulse 61 03/30/18 10:00 Resp 19 03/30/18 10:00 BP 145/59 03/30/18 10:00 Pulse Ox 98 03/29/18 21:00 Intake & Output 03/29/18 03/30/18 03/30/18 23:59 11:59 23:59 Intake Total 1646 0 Balance 1646 0 Weight 121 lb Intake: IVPB 650 Oral 0 Tube Feeding 756 Tube Irrigant 240 Other: Voiding Method Incontinent Diaper Incontinent # Unmeasured Voids Void 2 1 2 Bowel Movement Yes Yes # Bowel Movements 1 0 Weight Measurement Method Built [facility] Active Medications Acetaminophen (Ofirmev Injection -) 1,000 mg IVPB Q6H PRN PRN Reason: PAIN LEVEL 6-10 Last Admin: 03/29/18 22:29 Dose: 1,000 mg Amlodipine Besylate (Norvasc -) 5 mg PO DAILY [facility] Last Admin: 03/30/18 10:26 Dose: 5 mg Atorvastatin Calcium (Lipitor -) 10 mg NGT HS [facility] Last Admin: 03/29/18 22:32 Dose: 10 mg Brimonidine Tartrate (Alphagan 0.2% -) 1 drop OD DAILY [facility] Last Admin: 03/30/18 10:27 Dose: 1 drop Ceftriaxone Sodium 1 gm/ (Dextrose) 100 mls @ 200 mls/hr IVPB DAILY [facility]; Protocol Last Admin: 03/30/18 10:28 Dose: 200 mls/hr Levetiracetam (Keppra Injection -) 1,000 mg IVPB BID [facility] Last Admin: 03/30/18 10:28 Dose: 1,000 mg Levothyroxine Sodium (Synthroid Injection -) 25 mcg IVPUSH DAILY@0700 [facility] Last Admin: 03/30/18 07:35 Dose: 25 mcg Losartan Potassium (Cozaar -) 50 mg PO DAILY [facility] Last Admin: 03/30/18 10:27 Dose: 50 mg Metoprolol Tartrate (Lopressor -) 25 mg NGT BID [facility] Last Admin: 03/30/18 10:26 Dose: 25 mg Pantoprazole Sodium (Protonix Iv) 40 mg IVPUSH DAILY [facility] Last Admin: 03/30/18 10:28 Dose: 40 mg Phenytoin Sodium (Dilantin Injection -) 100 mg IVPB TID [facility] Senna (Senna Oral Solution -) 8.8 mg PO HS [facility] Last Admin: 03/29/18 22:29 Dose: 5 ml Timolol Maleate (Timoptic 0.5%) 1 drop OD DAILY [facility] Last Admin: 03/30/18 10:27 Dose: 1 drop CBC, BMP 03/30/18 07:00 03/30/18 07:00 PHYSICAL EXAM drowsy--do not follow commands. ngt + cvs-s1s2 lungs-bilateral breath sounds-- diminished at bases abd-soft,nt,bs + LE- no edema. A/P overall same continue present care abx monitor Problem List - Problems (1) HTN (hypertension) Code(s): I10 - ESSENTIAL (PRIMARY) HYPERTENSION Qualifiers: Hypertension type: essential hypertension Qualified Code(s): I10 - Essential (primary) hypertension (2) Hypothyroid Code(s): E03.9 - HYPOTHYROIDISM, UNSPECIFIED Qualifiers: Hypothyroidism type: other Qualified Code(s): E03.8 - Other specified hypothyroidism (3) S/P craniotomy Code(s): Z98.890 - OTHER SPECIFIED POSTPROCEDURAL STATES (4) Subdural hemorrhage Code(s): I62.00 - NONTRAUMATIC SUBDURAL HEMORRHAGE, UNSPECIFIED (5) Hypokalemia Code(s): E87.6 - HYPOKALEMIA
--- NOTE | 2018-03-30 14:44 | PN ---
Progress Note (short form) - Note Progress Note: PULMONARY Lethargic but arousable. No fevers recorded. Vital Signs Period Temp Pulse Resp BP Sys/Michel Pulse Ox Last 24 Hr 98 F-99.9 F 61-88 16-20 134-145/56-65 98-98 Intake & Output 03/27/18 03/28/18 03/29/18 03/30/18 23:59 23:59 23:59 23:59 Intake Total 200 1320 2560 0 Output Total 1100 1700 Balance -900 -380 2560 0 Weight 56.727 kg 55.99 kg 54.8 kg 54.885 kg Gen: lethargic but arousable Heart: RRR Lung: scattered rhonchi Abd: soft, nontender Ext: no edema CBC, BMP 03/30/18 07:00 03/30/18 07:00 Active Medications Acetaminophen (Ofirmev Injection -) 1,000 mg IVPB Q6H PRN PRN Reason: PAIN LEVEL 6-10 Last Admin: 03/29/18 22:29 Dose: 1,000 mg Amlodipine Besylate (Norvasc -) 5 mg PO DAILY [facility] Last Admin: 03/30/18 10:26 Dose: 5 mg Atorvastatin Calcium (Lipitor -) 10 mg NGT HS [facility] Last Admin: 03/29/18 22:32 Dose: 10 mg Brimonidine Tartrate (Alphagan 0.2% -) 1 drop OD DAILY [facility] Last Admin: 03/30/18 10:27 Dose: 1 drop Ceftriaxone Sodium 1 gm/ (Dextrose) 100 mls @ 200 mls/hr IVPB DAILY [facility]; Protocol Last Admin: 03/30/18 10:28 Dose: 200 mls/hr Levetiracetam (Keppra Injection -) 1,000 mg IVPB BID [facility] Last Admin: 03/30/18 10:28 Dose: 1,000 mg Levothyroxine Sodium (Synthroid Injection -) 25 mcg IVPUSH DAILY@0700 [facility] Last Admin: 03/30/18 07:35 Dose: 25 mcg Losartan Potassium (Cozaar -) 50 mg PO DAILY [facility] Last Admin: 03/30/18 10:27 Dose: 50 mg Metoprolol Tartrate (Lopressor -) 25 mg NGT BID [facility] Last Admin: 03/30/18 10:26 Dose: 25 mg Pantoprazole Sodium (Protonix Iv) 40 mg IVPUSH DAILY [facility] Last Admin: 03/30/18 10:28 Dose: 40 mg Phenytoin Sodium (Dilantin Injection -) 100 mg IVPB TID [facility] Last Admin: 03/30/18 14:42 Dose: Not Given Senna (Senna Oral Solution -) 8.8 mg PO HS [facility] Last Admin: 03/29/18 22:29 Dose: 5 ml Timolol Maleate (Timoptic 0.5%) 1 drop OD DAILY [facility] Last Admin: 03/30/18 10:27 Dose: 1 drop A/P Acute Respiratory Failure Pneumonia likely Aspiration Sepsis Acute on Chronic Subdural Hematoma s/p [place] Hole/Evacuation of Hematoma Seizures +Troponins likely Demand Ischemia Atrial Fibrillation Acute Kidney Injury HTN CKD Hypothyroidism - O2 to keep SpO2 >90% - continue antibiotics - rate control - defer anticoagulation due to subdural hematoma - monitor urine output, creatinine - replete lytes - continue antiepileptics per neuro - swallow eval when more alert - mechanical DVT prophylaxis
[2018-03-30] MEDS: ATORVASTATIN CA 10 MG TABLET (FP) NGT SCH (22:19)
[2018-03-30] MEDS: SENNOSIDES 8.8 MG/5 ML BULK BOTTLE PO SCH (22:20)
[2018-03-31] MEDS: PHENYTOIN SODIUM 100 MG/2 ML VIAL IVPB SCH ×3 (05:30→21:26)
[2018-03-31] MEDS: LEVOTHYROXINE SODIUM 100 MCG VIAL IVPUSH SCH (06:37)
[2018-03-31] MEDS ORDERED: cefTRIAXone SODIUM 1 GM VIAL ONE (09:09)
[2018-03-31] MEDS ORDERED: DEXTROSE 5%-WATER 100 ML IVPB ONE (09:09)
[2018-03-31] MEDS ORDERED: PT OWN MED DRAWER 7, Y5N ONE ×2 (09:12→09:47)
[2018-03-31] MEDS: levETIRAcetam 500 MG/5 ML INJECTION VIAL IVPB SCH ×2 (09:17→21:26)
[2018-03-31] MEDS: PANTOPRAZOLE SODIUM 40 MG VIAL IVPUSH SCH (09:17)
[2018-03-31] MEDS: METOPROLOL TARTRATE 25 MG TABLET (FP) NGT SCH ×2 (10:02→21:27)
[2018-03-31] MEDS: LOSARTAN POTASSIUM 50 MG TABLET (FP) PO SCH (10:02)
[2018-03-31] MEDS: amLODIPine BESYLATE 5 MG TABLET (FP) PO SCH (10:02)
[2018-03-31] MEDS: CEFTRIAXONE 1 GM in DEXTROSE 5%-WATER 100 ML IVPB SCH (10:02)
[2018-03-31] MEDS: TIMOLOL 0.5% OPHTHALMIC SOL 5 ML BOTTLE OD SCH (10:03)
[2018-03-31] MEDS: BRIMONIDINE TARTRATE 0.2% OPHTHALMIC 5 ML BOTTLE OD SCH (10:03)
--- NOTE | 2018-03-31 11:01 | PN ---
Progress Note, Physician History of Present Illness: PULMONARY LETHARGIC,-RESP DISTRESS - Current Medication List Current Medications: Active Medications Acetaminophen (Ofirmev Injection -) 1,000 mg IVPB Q6H PRN PRN Reason: PAIN LEVEL 6-10 Last Admin: 03/29/18 22:29 Dose: 1,000 mg Amlodipine Besylate (Norvasc -) 5 mg PO DAILY [facility] Last Admin: 03/31/18 10:02 Dose: 5 mg Atorvastatin Calcium (Lipitor -) 10 mg NGT HS [facility] Last Admin: 03/30/18 22:19 Dose: 10 mg Brimonidine Tartrate (Alphagan 0.2% -) 1 drop OD DAILY [facility] Last Admin: 03/31/18 10:03 Dose: 1 drop Ceftriaxone Sodium 1 gm/ (Dextrose) 100 mls @ 200 mls/hr IVPB DAILY [facility]; Protocol Last Admin: 03/31/18 10:02 Dose: 200 mls/hr Levetiracetam (Keppra Injection -) 1,000 mg IVPB BID [facility] Last Admin: 03/31/18 09:17 Dose: 1,000 mg Levothyroxine Sodium (Synthroid Injection -) 25 mcg IVPUSH DAILY@0700 [facility] Last Admin: 03/31/18 06:37 Dose: 25 mcg Losartan Potassium (Cozaar -) 50 mg PO DAILY [facility] Last Admin: 03/31/18 10:02 Dose: 50 mg Metoprolol Tartrate (Lopressor -) 25 mg NGT BID [facility] Last Admin: 03/31/18 10:02 Dose: 25 mg Pantoprazole Sodium (Protonix Iv) 40 mg IVPUSH DAILY [facility] Last Admin: 03/31/18 09:17 Dose: 40 mg Phenytoin Sodium (Dilantin Injection -) 100 mg IVPB TID [facility] Last Admin: 03/31/18 05:30 Dose: 100 mg Senna (Senna Oral Solution -) 8.8 mg PO HS [facility] Last Admin: 03/30/18 22:20 Dose: 5 ml Timolol Maleate (Timoptic 0.5%) 1 drop OD DAILY [facility] Last Admin: 03/31/18 10:03 Dose: 1 drop - Objective Vital Signs: Vital Signs Temperature 99.4 F 03/31/18 06:00 Pulse Rate 63 03/31/18 06:00 Respiratory Rate 20 03/31/18 06:00 Blood Pressure 153/73 03/31/18 06:00 O2 Sat by Pulse Oximetry (%) 99 03/30/18 21:00 Constitutional: Yes: Thin, Other (LETHARGIC) Eyes: Yes: WNL HENT: Yes: WNL Neck: Yes: WNL Cardiovascular: Yes: Pulse Irregular, S1, S2 Respiratory: Yes: Diminished Gastrointestinal: Yes: Normal Bowel Sounds, Soft Extremities: Yes: WNL Edema: No Labs: CBC, BMP Problem List - Problems (1) Respiratory failure Code(s): J96.90 - RESPIRATORY FAILURE, UNSP, UNSP W HYPOXIA OR HYPERCAPNIA (2) History of craniotomy Code(s): Z98.890 - OTHER SPECIFIED POSTPROCEDURAL STATES (3) History of endovascular stent graft for abdominal aortic aneurysm (AAA) Code(s): Z95.828 - PRESENCE OF OTHER VASCULAR IMPLANTS AND GRAFTS (4) Pneumonia Code(s): J18.9 - PNEUMONIA, UNSPECIFIED ORGANISM Qualifiers: Pneumonia type: aspiration pneumonia (5) S/P CABG (coronary artery bypass graft) Code(s): Z95.1 - PRESENCE OF AORTOCORONARY BYPASS GRAFT (6) CAD (coronary artery disease) Code(s): I25.10 - ATHSCL HEART DISEASE OF [place] CORONARY ARTERY W/O ANG PCTRS Qualifiers: [place] vs. transplanted heart: [place] heart Associated angina: without angina (7) HTN (hypertension) Code(s): I10 - ESSENTIAL (PRIMARY) HYPERTENSION Qualifiers: Hypertension type: essential hypertension Qualified Code(s): I10 - Essential (primary) hypertension (8) Hypothyroid Code(s): E03.9 - HYPOTHYROIDISM, UNSPECIFIED Qualifiers: Hypothyroidism type: other Qualified Code(s): E03.8 - Other specified hypothyroidism (9) Afib Code(s): I48.91 - UNSPECIFIED ATRIAL FIBRILLATION (10) MALINDA (acute kidney injury) Code(s): N17.9 - ACUTE KIDNEY FAILURE, UNSPECIFIED (11) S/P craniotomy Code(s): Z98.890 - OTHER SPECIFIED POSTPROCEDURAL STATES (12) Subdural hemorrhage Code(s): I62.00 - NONTRAUMATIC SUBDURAL HEMORRHAGE, UNSPECIFIED Assessment/Plan A/P Acute Respiratory Failure Pneumonia likely Aspiration Sepsis Acute on Chronic Subdural Hematoma s/p [place] Hole/Evacuation of Hematoma Seizures +Troponins likely Demand Ischemia Atrial Fibrillation Acute Kidney Injury HTN CKD Hypothyroidism - O2 to keep SpO2 >90% - continue antibiotics - rate control - defer anticoagulation due to subdural hematoma - monitor urine output, creatinine - replete lytes - continue antiepileptics per neuro - swallow eval when more alert - mechanical DVT prophylaxis DR GONSALES
--- NOTE | 2018-03-31 12:10 | PN ---
Progress Note (short form) - Note Progress Note: on floor same dilatin was increased yesterday neurology f/u noted. Vital Signs Temp 99.4 F 03/31/18 06:00 Pulse 63 03/31/18 06:00 Resp 20 03/31/18 06:00 BP 153/73 03/31/18 06:00 Pulse Ox 99 03/30/18 21:00 Intake & Output 03/30/18 03/31/18 03/31/18 23:59 11:59 23:59 Intake Total 850 1000 Balance 850 1000 Intake: IVPB 300 400 Oral 0 Tube Feeding 400 400 Tube Irrigant 150 200 Other: Voiding Method Incontinent Incontinent # Unmeasured Voids Void 1 2 Bowel Movement No No Active Medications Acetaminophen (Ofirmev Injection -) 1,000 mg IVPB Q6H PRN PRN Reason: PAIN LEVEL 6-10 Last Admin: 03/29/18 22:29 Dose: 1,000 mg Amlodipine Besylate (Norvasc -) 5 mg PO DAILY [facility] Last Admin: 03/31/18 10:02 Dose: 5 mg Atorvastatin Calcium (Lipitor -) 10 mg NGT HS [facility] Last Admin: 03/30/18 22:19 Dose: 10 mg Brimonidine Tartrate (Alphagan 0.2% -) 1 drop OD DAILY [facility] Last Admin: 03/31/18 10:03 Dose: 1 drop Ceftriaxone Sodium 1 gm/ (Dextrose) 100 mls @ 200 mls/hr IVPB DAILY [facility]; Protocol Last Admin: 03/31/18 10:02 Dose: 200 mls/hr Levetiracetam (Keppra Injection -) 1,000 mg IVPB BID [facility] Last Admin: 03/31/18 09:17 Dose: 1,000 mg Levothyroxine Sodium (Synthroid Injection -) 25 mcg IVPUSH DAILY@0700 [facility] Last Admin: 03/31/18 06:37 Dose: 25 mcg Losartan Potassium (Cozaar -) 50 mg PO DAILY [facility] Last Admin: 03/31/18 10:02 Dose: 50 mg Metoprolol Tartrate (Lopressor -) 25 mg NGT BID [facility] Last Admin: 03/31/18 10:02 Dose: 25 mg Pantoprazole Sodium (Protonix Iv) 40 mg IVPUSH DAILY [facility] Last Admin: 03/31/18 09:17 Dose: 40 mg Phenytoin Sodium (Dilantin Injection -) 100 mg IVPB TID [facility] Last Admin: 03/31/18 05:30 Dose: 100 mg Senna (Senna Oral Solution -) 8.8 mg PO HS [facility] Last Admin: 03/30/18 22:20 Dose: 5 ml Timolol Maleate (Timoptic 0.5%) 1 drop OD DAILY [facility] Last Admin: 03/31/18 10:03 Dose: 1 drop CBC, BMP 03/30/18 07:00 03/30/18 07:00 PHYSICAL EXAM drowsy--do not follow commands. cvs-s1s2 lungs-bilateral breath sounds-- diminished at bases abd-soft,nt,bs + LE- no edema. A/P same continue present care abx monitor neuro following may need to consider peg will follow Problem List - Problems (1) HTN (hypertension) Code(s): I10 - ESSENTIAL (PRIMARY) HYPERTENSION Qualifiers: Hypertension type: essential hypertension Qualified Code(s): I10 - Essential (primary) hypertension (2) Hypothyroid Code(s): E03.9 - HYPOTHYROIDISM, UNSPECIFIED Qualifiers: Hypothyroidism type: other Qualified Code(s): E03.8 - Other specified hypothyroidism (3) S/P craniotomy Code(s): Z98.890 - OTHER SPECIFIED POSTPROCEDURAL STATES (4) Subdural hemorrhage Code(s): I62.00 - NONTRAUMATIC SUBDURAL HEMORRHAGE, UNSPECIFIED (5) Hypokalemia Code(s): E87.6 - HYPOKALEMIA
--- NOTE | 2018-03-31 14:11 | PN ---
Progress Note (short form) - Note Progress Note: 87 year old male had seizure after subdural hematoma evacuation .He initially came from [place] for mental status change. He has history of craniotomy and evacuation of subdural hematoma on February [address] Rad Wilson. Patient under went repeat craniotectomy and hematoma evacuation. SUBJECTIVE : He is now on regular floor and his condition remain same. yesterday dilantin was increased and no more seizure activity. mental status remains same . Neurological Examinatoin He is remain comfortable, extubated and on regular floor do not follow command and no spontaneous speech is present opens eye spontaneously , not able to communicate and track objects right sided face twitching was seen pupils are small and left side there is eivdence of old surgery ? glaucoma withdraws to painful stimuli CT scan done on march 27 remain unchanged Assessment- 1. 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 Focal seizure secondary to subdural and history of craniotectomy twice , seizure controlled , continue dilantin and keppra for now twitching has subsided continue current dose of AED now continue supportive treatment Thanking you os much Jerardo Stokes MD
--- NOTE | 2018-03-31 14:31 | PN ---
Progress Note, Physician History of Present Illness: Lethargic, remains in SR. - Current Medication List Current Medications: Active Medications Acetaminophen (Ofirmev Injection -) 1,000 mg IVPB Q6H PRN PRN Reason: PAIN LEVEL 6-10 Last Admin: 03/29/18 22:29 Dose: 1,000 mg Amlodipine Besylate (Norvasc -) 5 mg PO DAILY [facility] Last Admin: 03/31/18 10:02 Dose: 5 mg Atorvastatin Calcium (Lipitor -) 10 mg NGT HS [facility] Last Admin: 03/30/18 22:19 Dose: 10 mg Brimonidine Tartrate (Alphagan 0.2% -) 1 drop OD DAILY [facility] Last Admin: 03/31/18 10:03 Dose: 1 drop Ceftriaxone Sodium 1 gm/ (Dextrose) 100 mls @ 200 mls/hr IVPB DAILY [facility]; Protocol Last Admin: 03/31/18 10:02 Dose: 200 mls/hr Levetiracetam (Keppra Injection -) 1,000 mg IVPB BID [facility] Last Admin: 03/31/18 09:17 Dose: 1,000 mg Levothyroxine Sodium (Synthroid Injection -) 25 mcg IVPUSH DAILY@0700 [facility] Last Admin: 03/31/18 06:37 Dose: 25 mcg Losartan Potassium (Cozaar -) 50 mg PO DAILY [facility] Last Admin: 03/31/18 10:02 Dose: 50 mg Metoprolol Tartrate (Lopressor -) 25 mg NGT BID [facility] Last Admin: 03/31/18 10:02 Dose: 25 mg Pantoprazole Sodium (Protonix Iv) 40 mg IVPUSH DAILY [facility] Last Admin: 03/31/18 09:17 Dose: 40 mg Phenytoin Sodium (Dilantin Injection -) 100 mg IVPB TID [facility] Last Admin: 03/31/18 14:18 Dose: 100 mg Senna (Senna Oral Solution -) 8.8 mg PO HS [facility] Last Admin: 03/30/18 22:20 Dose: 5 ml Timolol Maleate (Timoptic 0.5%) 1 drop OD DAILY [facility] Last Admin: 03/31/18 10:03 Dose: 1 drop - Objective Vital Signs: Vital Signs Temperature 98.4 F 03/31/18 10:00 Pulse Rate 71 03/31/18 10:00 Respiratory Rate 20 03/31/18 10:00 Blood Pressure 183/82 03/31/18 10:00 O2 Sat by Pulse Oximetry (%) 95 03/31/18 13:04 Constitutional: Yes: No Distress, Calm Neck: Yes: Supple Cardiovascular: Yes: Regular Rate and Rhythm Respiratory: Yes: Regular, Diminished, On Nasal O2 Gastrointestinal: Yes: Normal Bowel Sounds, Soft Edema: No Labs: CBC, BMP 03/30/18 07:00 03/30/18 07:00 INR, PTT INR 1.35 (0.83-1.09) H 03/17/18 05:30 Problem List - Problems (1) Demand ischemia Code(s): I24.8 - OTHER FORMS OF ACUTE ISCHEMIC HEART DISEASE (2) Atrial flutter Code(s): I48.92 - UNSPECIFIED ATRIAL FLUTTER Qualifiers: Atrial flutter type: atypical Qualified Code(s): I48.4 - Atypical atrial flutter (3) S/P CABG (coronary artery bypass graft) Code(s): Z95.1 - PRESENCE OF AORTOCORONARY BYPASS GRAFT (4) History of endovascular stent graft for abdominal aortic aneurysm (AAA) Code(s): Z95.828 - PRESENCE OF OTHER VASCULAR IMPLANTS AND GRAFTS (5) Focal seizures Code(s): R56.9 - UNSPECIFIED CONVULSIONS (6) History of craniotomy Code(s): Z98.890 - OTHER SPECIFIED POSTPROCEDURAL STATES (7) Pneumonia Code(s): J18.9 - PNEUMONIA, UNSPECIFIED ORGANISM Qualifiers: Pneumonia type: aspiration pneumonia (8) MALINDA (acute kidney injury) Code(s): N17.9 - ACUTE KIDNEY FAILURE, UNSPECIFIED (9) Aneurysm of infrarenal abdominal aorta Code(s): I71.4 - ABDOMINAL AORTIC ANEURYSM, WITHOUT RUPTURE (10) HTN (hypertension) Code(s): I10 - ESSENTIAL (PRIMARY) HYPERTENSION Qualifiers: Hypertension type: essential hypertension Qualified Code(s): I10 - Essential (primary) hypertension (11) Hypothyroid Code(s): E03.9 - HYPOTHYROIDISM, UNSPECIFIED Qualifiers: Hypothyroidism type: other Qualified Code(s): E03.8 - Other specified hypothyroidism (12) Subdural hemorrhage Code(s): I62.00 - NONTRAUMATIC SUBDURAL HEMORRHAGE, UNSPECIFIED (13) Hyperlipidemia Code(s): E78.5 - HYPERLIPIDEMIA, UNSPECIFIED Qualifiers: Hyperlipidemia type: pure hypercholesterolemia Qualified Code(s): E78.00 - Pure hypercholesterolemia, unspecified; E78.0 - Pure hypercholesterolemia (14) Hypokalemia Code(s): E87.6 - HYPOKALEMIA Assessment/Plan Mild cLVH, normal LVEF 65%, normal RV size and fxn, mild LAE, mild MR , AR and mod TR 1. Post acute Respiratory Failure referable to probable aspiration pneumonia 2. Paroxysmal Atypical atrial flutter -> NSR [id number] score of 5 currently on no A/C related to subdural hematoma 3. CAD post CABG angina pectoris demand ischemic injury 4. Diastolic LV dysfunction with class 0-I NYHA classification LV failure, compensated/euvolemic 5. Acute on Chronic Subdural Hematoma post [place] Hole/Evacuation of Hematoma 6. Seizure disorder 7. HTN 8. Hypercholesterolemia 9. AAA post EVAR 10. Hypothyroidism 11. Acute on chronic kidney Injury improved 12. Anemia PLAN: 1. Continue Lopressor 25 bid, Norvasc 5 qd, losartan 50 qd as renal function stabilized 2. Continue Lipitor 10 qhs 3. Defer anticoagulation for atrial flutter with [id number] score of 5 due to subdural hematoma 4. Antibiotics as per primary team 5. Continue anti-epileptics and repeat EEG per neuro service 6. Taper FiO2 to keep SpO2 >90%, complete abx course 7. Swallow eval when more alert 8. Mechanical DVT and GI prophylaxis
[2018-03-31] MEDS: ATORVASTATIN CA 10 MG TABLET (FP) NGT SCH (21:26)
[2018-03-31] MEDS: SENNOSIDES 8.8 MG/5 ML BULK BOTTLE PO SCH (21:28)
[2018-04-01] MEDS: PHENYTOIN SODIUM 100 MG/2 ML VIAL IVPB SCH ×3 (05:38→22:31)
[2018-04-01] MEDS: LEVOTHYROXINE SODIUM 100 MCG VIAL IVPUSH SCH (06:24)
--- NOTE | 2018-04-01 07:56 | PN ---
Progress Note (short form) - Note Progress Note: Chief complaint: Events noted, notes reviewed, remains non verbal, not responsive to verbal commands but responsive to deep tactile stimuli-opening eyes/grimacing, sinus rhythm is noted/persists History of Present Illness: Seen and examined on telemetry. Events noted, notes reviewed, remains non verbal , not responsive to verbal commands but responsive to deep tactile stimuli- opening eyes/grimacing, sinus rhythm is noted/persists Echocardiography dated 03/20/2018 revealed mild cLVH, normal LVEF 65%, normal RV size and function, mild LAE, mild MR, AR and moderate TR Allergies: NKA. Medical therapy currently includes: Current Medications Acetaminophen (Ofirmev Injection -) 1,000 mg IVPB Q6H PRN PRN Reason: PAIN LEVEL 6-10 Last Admin: 03/29/18 22:29 Dose: 1,000 mg Amlodipine Besylate (Norvasc -) 5 mg PO DAILY [facility] Last Admin: 03/31/18 10:02 Dose: 5 mg Atorvastatin Calcium (Lipitor -) 10 mg NGT HS [facility] Last Admin: 03/31/18 21:26 Dose: 10 mg Brimonidine Tartrate (Alphagan 0.2% -) 1 drop OD DAILY [facility] Last Admin: 03/31/18 10:03 Dose: 1 drop Ceftriaxone Sodium 1 gm/ (Dextrose) 100 mls @ 200 mls/hr IVPB DAILY [facility]; Protocol Last Admin: 03/31/18 10:02 Dose: 200 mls/hr Levetiracetam (Keppra Injection -) 1,000 mg IVPB BID [facility] Last Admin: 03/31/18 21:26 Dose: 1,000 mg Levothyroxine Sodium (Synthroid Injection -) 25 mcg IVPUSH DAILY@0700 [facility] Last Admin: 04/01/18 06:24 Dose: 25 mcg Losartan Potassium (Cozaar -) 50 mg PO DAILY [facility] Last Admin: 03/31/18 10:02 Dose: 50 mg Metoprolol Tartrate (Lopressor -) 25 mg NGT BID [facility] Last Admin: 03/31/18 21:27 Dose: 25 mg Pantoprazole Sodium (Protonix Iv) 40 mg IVPUSH DAILY [facility] Last Admin: 03/31/18 09:17 Dose: 40 mg Phenytoin Sodium (Dilantin Injection -) 100 mg IVPB TID [facility] Last Admin: 04/01/18 05:38 Dose: 100 mg Senna (Senna Oral Solution -) 8.8 mg PO HS [facility] Last Admin: 03/31/18 21:28 Dose: 5 ml Timolol Maleate (Timoptic 0.5%) 1 drop OD DAILY [facility] Last Admin: 03/31/18 10:03 Dose: 1 drop Review of Systems: Unable to Obtain Physical Examination: Vital Signs: Last Vital Signs Temp Pulse Resp BP Pulse Ox 99.6 F 79 18 134/79 95 04/01/18 06:00 04/01/18 06:00 04/01/18 06:00 04/01/18 06:00 03/31/18 21:00 Intake & Output 03/29/18 03/30/18 03/31/18 04/01/18 23:59 23:59 23:59 23:59 Intake Total 2560 850 1250 0 Balance 2560 850 1250 0 Weight 120 lb 13.013 oz 121 lb Neck: Supple negative JVD no bruit appreciated Heart: S1 and S2 Regular Rate and Rhythm Lungs: Diminished Breath Sounds at the Bases Bilateral Scattered Rhonchi Abdomen: Soft benign normoactive bowel sounds Extremities: Negative edema Lab Data: CBC, BMP 03/30/18 07:00 03/30/18 07:00 ASSESSMENT: 1. post Respiratory Failure referable to probable aspiration pneumonia 2. Paroxysmal Atypical atrial flutter [id number] score of 5 currently on no A/ C related to subdural hematoma 3. CAD post CABG angina pectoris demand ischemic injury 4. Diastolic LV dysfunction with class 0-I NYHA classification LV failure, compensated/euvolemic 5. Acute on Chronic Subdural Hematoma post [place] Hole/Evacuation of Hematoma 6. Seizure disorder 7. HTN 8. Hypercholesterolemia 9. AAA post EVAR 10. Hypothyroidism 11. Acute on chronic kidney Injury 12. Anemia PLAN: 1. Continue Lopressor 2. Continue Cozaar 3. Continue Lipitor 4. Defer anticoagulation for atrial flutter with [id number] score of 5 due to subdural hematoma 5. Antibiotics as per primary team 6. Continue anti-epileptics per neuro service 7. Overall poor prognosis Lanre Riggs M.D.
[2018-04-01] MEDS ORDERED: PT OWN MED DRAWER 7, Y5N ONE ×2 (08:05→12:57)
[2018-04-01] MEDS: levETIRAcetam 500 MG/5 ML INJECTION VIAL IVPB SCH ×2 (09:12→22:55)
[2018-04-01] MEDS: amLODIPine BESYLATE 5 MG TABLET (FP) PO SCH (09:12)
[2018-04-01] MEDS: PANTOPRAZOLE SODIUM 40 MG VIAL IVPUSH SCH (09:12)
[2018-04-01] MEDS: METOPROLOL TARTRATE 25 MG TABLET (FP) NGT SCH ×2 (09:12→22:32)
[2018-04-01] MEDS: TIMOLOL 0.5% OPHTHALMIC SOL 5 ML BOTTLE OD SCH (09:13)
[2018-04-01] MEDS: BRIMONIDINE TARTRATE 0.2% OPHTHALMIC 5 ML BOTTLE OD SCH (09:13)
[2018-04-01] MEDS: LOSARTAN POTASSIUM 50 MG TABLET (FP) PO SCH (09:13)
[2018-04-01] MEDS ORDERED: cefTRIAXone SODIUM 1 GM VIAL ONE (09:14)
[2018-04-01] MEDS ORDERED: DEXTROSE 5%-WATER 100 ML IVPB ONE (09:14)
--- NOTE | 2018-04-01 09:42 | PN ---
Progress Note (short form) - Note Progress Note: 87 year old male had seizure after subdural hematoma evacuation .He initially came from [place] for mental status change. He has history of craniotomy and evacuation of subdural hematoma on February [address] Rad Wilson. Patient under went repeat craniotectomy and hematoma evacuation. SUBJECTIVE : no more seizure, and mental status remain unchanged. He is non verbal and would track object. Previous ct head were stable. Neurological Examinatoin He is remain comfortable, would open eye, non verbal and not following command opens eye spontaneously , not able to communicate and track objects no face twitching was seen pupils are small and left side there is eivdence of old surgery ? glaucoma withdraws to painful stimuli CT scan done on march 27 remain unchanged Assessment- 1. 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 Focal seizure secondary to subdural and history of craniotectomy twice , seizure controlled , continue dilantin and keppra for now twitching has subsided continue current dose of AED now continue supportive treatment Thanking you os much Jerardo Stokes MD
[2018-04-01] MEDS: CEFTRIAXONE 1 GM in DEXTROSE 5%-WATER 100 ML IVPB SCH (10:57)
--- NOTE | 2018-04-01 12:12 | PN ---
Progress Note, TRAILER STEERER - Note Progress Note: Pt continues to be lethargic, with ngt feedings. Selected Entries 03/31/18 03/31/18 03/31/18 02:00 04:30 06:00 Supper Temperature 98.6 F 98.1 F 99.4 F 03/31/18 03/31/18 03/31/18 10:00 14:00 20:36 Supper Temperature 98.4 F 98.3 F 98.2 F 03/31/18 04/01/18 04/01/18 23:16 02:00 06:00 Supper NPO Temperature 99.5 F 99.6 F Laboratory Tests 03/30/18 07:00 WBC 8.5 What are pt's end of life wishes? Consider Palliative care evaluation. PEG/ Comfort care? Pt is a full code
--- NOTE | 2018-04-01 14:26 | PN ---
Progress Note (short form) - Note Progress Note: Progress Note (short form) - Note Progress Note: lethargic on NG feeds neurology f/u noted. Vital Signs - 24 hr 03/31/18 03/31/18 04/01/18 20:36 21:00 02:00 Temperature 98.2 F 99.5 F Pulse Rate 73 76 Respiratory 18 18 18 Rate Blood Pressure 145/70 140/64 O2 Sat by Pulse 95 Oximetry (%) 04/01/18 06:00 Temperature 99.6 F Pulse Rate 79 Respiratory 18 Rate Blood Pressure 134/79 O2 Sat by Pulse Oximetry (%) Current Medications Generic Name Dose Route Start Last Admin Trade Name Freq PRN Reason Stop Dose Admin Acetaminophen 1,000 mg 03/29/18 15:41 03/29/18 22:29 Ofirmev Injection - IVPB 1,000 mg Q6H PRN Administration PAIN LEVEL 6-10 Amlodipine Besylate 5 mg 03/30/18 10:00 04/01/18 09:12 Norvasc - PO 5 mg DAILY [facility] Administration Atorvastatin Calcium 10 mg 03/29/18 22:00 03/31/18 21:26 Lipitor - NGT 10 mg HS [facility] Administration Brimonidine Tartrate 1 drop 03/30/18 10:00 04/01/18 09:13 Alphagan 0.2% - OD 1 drop DAILY [facility] Administration Ceftriaxone Sodium 1 gm/ 100 mls @ 200 mls/hr 03/30/18 10:00 04/01/18 10:57 Dextrose IVPB 200 mls/hr DAILY [facility] Administration Protocol Levetiracetam 1,000 mg 03/29/18 22:00 04/01/18 09:12 Keppra Injection - IVPB 1,000 mg BID [facility] Administration Levothyroxine Sodium 25 mcg 03/30/18 07:00 04/01/18 06:24 Synthroid Injection - IVPUSH 25 mcg DAILY@0700 [facility] Administration Losartan Potassium 50 mg 03/30/18 10:00 04/01/18 09:13 Cozaar - PO 50 mg DAILY [facility] Administration Metoprolol Tartrate 25 mg 03/29/18 22:00 04/01/18 09:12 Lopressor - NGT 25 mg BID [facility] Administration Pantoprazole Sodium 40 mg 03/30/18 10:00 04/01/18 09:12 Protonix Iv IVPUSH 40 mg DAILY [facility] Administration Phenytoin Sodium 100 mg 03/30/18 14:00 04/01/18 13:13 Dilantin Injection - IVPB 100 mg TID [facility] Administration Senna 8.8 mg 03/29/18 22:00 03/31/18 21:28 Senna Oral Solution - PO 5 ml HS [facility] Administration Timolol Maleate 1 drop 03/30/18 10:00 04/01/18 09:13 Timoptic 0.5% OD 1 drop DAILY [facility] Administration PHYSICAL EXAM drowsy--do not follow commands. cvs-s1s2 lungs-bilateral breath sounds-- diminished at bases abd-soft,nt,bs + LE- no edema. A/P same continue present care abx monitor neuro following may need to consider peg-- called and left a message with significant other- Brandy Moss Problem List - Problems (1) HTN (hypertension) Code(s): I10 - ESSENTIAL (PRIMARY) HYPERTENSION Qualifiers: Hypertension type: essential hypertension Qualified Code(s): I10 - Essential (primary) hypertension (2) Hypothyroid Code(s): E03.9 - HYPOTHYROIDISM, UNSPECIFIED Qualifiers: Hypothyroidism type: other Qualified Code(s): E03.8 - Other specified hypothyroidism (3) S/P craniotomy Code(s): Z98.890 - OTHER SPECIFIED POSTPROCEDURAL STATES (4) Subdural hemorrhage Code(s): I62.00 - NONTRAUMATIC SUBDURAL HEMORRHAGE, UNSPECIFIED (5) Hypokalemia Code(s): E87.6 - HYPOKALEMIA
[2018-04-01 16:20] VITALS: BMI 18.3
[2018-04-01] MEDS: SENNOSIDES 8.8 MG/5 ML BULK BOTTLE PO SCH (22:32)
[2018-04-01] MEDS: ATORVASTATIN CA 10 MG TABLET (FP) NGT SCH (22:32)
[2018-04-02] MEDS: PHENYTOIN SODIUM 100 MG/2 ML VIAL IVPB SCH ×3 (05:28→22:25)
[2018-04-02] MEDS: LEVOTHYROXINE SODIUM 100 MCG VIAL IVPUSH SCH (06:23)
[2018-04-02] MEDS ORDERED: PT OWN MED DRAWER 7, Y5N ONE ×3 (09:30→21:56)
[2018-04-02] MEDS ORDERED: cefTRIAXone SODIUM 1 GM VIAL ONE (09:30)
[2018-04-02] MEDS ORDERED: DEXTROSE 5%-WATER 100 ML IVPB ONE (09:31)
[2018-04-02] MEDS: CEFTRIAXONE 1 GM in DEXTROSE 5%-WATER 100 ML IVPB SCH (09:41)
[2018-04-02] MEDS: BRIMONIDINE TARTRATE 0.2% OPHTHALMIC 5 ML BOTTLE OD SCH (09:42)
[2018-04-02] MEDS: LOSARTAN POTASSIUM 50 MG TABLET (FP) PO SCH (09:42)
[2018-04-02] MEDS: amLODIPine BESYLATE 5 MG TABLET (FP) PO SCH (09:42)
[2018-04-02] MEDS: METOPROLOL TARTRATE 25 MG TABLET (FP) NGT SCH ×2 (09:42→22:26)
[2018-04-02] MEDS: levETIRAcetam 500 MG/5 ML INJECTION VIAL IVPB SCH ×2 (09:43→22:25)
[2018-04-02] MEDS: TIMOLOL 0.5% OPHTHALMIC SOL 5 ML BOTTLE OD SCH (09:44)
[2018-04-02] MEDS: PANTOPRAZOLE SODIUM 40 MG VIAL IVPUSH SCH (09:44)
--- NOTE | 2018-04-02 10:05 | PN ---
Progress Note, Physician History of Present Illness: Lethargic, nonverbal remains in SR. - Current Medication List Current Medications: Active Medications Acetaminophen (Ofirmev Injection -) 1,000 mg IVPB Q6H PRN PRN Reason: PAIN LEVEL 6-10 Last Admin: 03/29/18 22:29 Dose: 1,000 mg Amlodipine Besylate (Norvasc -) 5 mg PO DAILY [facility] Last Admin: 04/02/18 09:42 Dose: 5 mg Atorvastatin Calcium (Lipitor -) 10 mg NGT HS [facility] Last Admin: 04/01/18 22:32 Dose: 10 mg Brimonidine Tartrate (Alphagan 0.2% -) 1 drop OD DAILY [facility] Last Admin: 04/02/18 09:42 Dose: 1 drop Ceftriaxone Sodium 1 gm/ (Dextrose) 100 mls @ 200 mls/hr IVPB DAILY [facility]; Protocol Last Admin: 04/02/18 09:41 Dose: 200 mls/hr Levetiracetam (Keppra Injection -) 1,000 mg IVPB BID [facility] Last Admin: 04/02/18 09:43 Dose: 1,000 mg Levothyroxine Sodium (Synthroid Injection -) 25 mcg IVPUSH DAILY@0700 [facility] Last Admin: 04/02/18 06:23 Dose: 25 mcg Losartan Potassium (Cozaar -) 50 mg PO DAILY [facility] Last Admin: 04/02/18 09:42 Dose: 50 mg Metoprolol Tartrate (Lopressor -) 25 mg NGT BID [facility] Last Admin: 04/02/18 09:42 Dose: 25 mg Pantoprazole Sodium (Protonix Iv) 40 mg IVPUSH DAILY [facility] Last Admin: 04/02/18 09:44 Dose: 40 mg Phenytoin Sodium (Dilantin Injection -) 100 mg IVPB TID [facility] Last Admin: 04/02/18 05:28 Dose: 100 mg Senna (Senna Oral Solution -) 8.8 mg PO [facility] Last Admin: 04/01/18 22:32 Dose: 5 ml Timolol Maleate (Timoptic 0.5%) 1 drop OD DAILY [facility] Last Admin: 04/02/18 09:44 Dose: 1 drop - Objective Vital Signs: Vital Signs Temperature 98.5 F 04/02/18 05:34 Pulse Rate 84 04/02/18 05:34 Respiratory Rate 18 04/02/18 09:00 Blood Pressure 154/75 04/02/18 05:34 O2 Sat by Pulse Oximetry (%) 94 L 04/02/18 09:00 Constitutional: Yes: No Distress, Calm Neck: Yes: Supple Cardiovascular: Yes: Regular Rate and Rhythm Respiratory: Yes: Regular, Diminished, On Nasal O2 Gastrointestinal: Yes: Normal Bowel Sounds, Soft Edema: No Labs: CBC, BMP 03/30/18 07:00 03/30/18 07:00 INR, PTT INR 1.35 (0.83-1.09) H 03/17/18 05:30 Problem List - Problems (1) Demand ischemia Code(s): I24.8 - OTHER FORMS OF ACUTE ISCHEMIC HEART DISEASE (2) Atrial flutter Code(s): I48.92 - UNSPECIFIED ATRIAL FLUTTER Qualifiers: Atrial flutter type: atypical Qualified Code(s): I48.4 - Atypical atrial flutter (3) S/P CABG (coronary artery bypass graft) Code(s): Z95.1 - PRESENCE OF AORTOCORONARY BYPASS GRAFT (4) History of endovascular stent graft for abdominal aortic aneurysm (AAA) Code(s): Z95.828 - PRESENCE OF OTHER VASCULAR IMPLANTS AND GRAFTS (5) Focal seizures Code(s): R56.9 - UNSPECIFIED CONVULSIONS (6) History of craniotomy Code(s): Z98.890 - OTHER SPECIFIED POSTPROCEDURAL STATES (7) Pneumonia Code(s): J18.9 - PNEUMONIA, UNSPECIFIED ORGANISM Qualifiers: Pneumonia type: aspiration pneumonia (8) MALINDA (acute kidney injury) Code(s): N17.9 - ACUTE KIDNEY FAILURE, UNSPECIFIED (9) Aneurysm of infrarenal abdominal aorta Code(s): I71.4 - ABDOMINAL AORTIC ANEURYSM, WITHOUT RUPTURE (10) HTN (hypertension) Code(s): I10 - ESSENTIAL (PRIMARY) HYPERTENSION Qualifiers: Hypertension type: essential hypertension Qualified Code(s): I10 - Essential (primary) hypertension (11) Hypothyroid Code(s): E03.9 - HYPOTHYROIDISM, UNSPECIFIED Qualifiers: Hypothyroidism type: other Qualified Code(s): E03.8 - Other specified hypothyroidism (12) Subdural hemorrhage Code(s): I62.00 - NONTRAUMATIC SUBDURAL HEMORRHAGE, UNSPECIFIED (13) Hyperlipidemia Code(s): E78.5 - HYPERLIPIDEMIA, UNSPECIFIED Qualifiers: Hyperlipidemia type: pure hypercholesterolemia Qualified Code(s): E78.00 - Pure hypercholesterolemia, unspecified; E78.0 - Pure hypercholesterolemia (14) Hypokalemia Code(s): E87.6 - HYPOKALEMIA Assessment/Plan Mild cLVH, normal LVEF 65%, normal RV size and fxn, mild LAE, mild MR , AR and mod TR 1. Post acute Respiratory Failure referable to probable aspiration pneumonia 2. Paroxysmal Atypical atrial flutter -> NSR [id number] score of 5 currently on no A/C related to subdural hematoma 3. CAD post CABG angina pectoris demand ischemic injury 4. Diastolic LV dysfunction with class 0-I NYHA classification LV failure, compensated/euvolemic 5. Acute on Chronic Subdural Hematoma post [place] Hole/Evacuation of Hematoma 6. Seizure disorder 7. HTN 8. Hypercholesterolemia 9. AAA post EVAR 10. Hypothyroidism 11. Acute on chronic kidney Injury improved 12. Anemia PLAN: 1. Continue Lopressor 25 bid, Norvasc 5 qd, Lipitor 10 qhs, losartan 50 qd as renal function stabilized 2. Defer anticoagulation for atrial flutter with [id number] score of 5 due to subdural hematoma 3. Antibiotics as per primary team 4. Continue anti-epileptics and repeat EEG per neuro service 5. Taper FiO2 to keep SpO2 >90%, complete abx course 6. Enteral feeds via NGT 7. Mechanical DVT and GI prophylaxis 8. Goals of care to be established
--- NOTE | 2018-04-02 10:46 | PN ---
Progress Note (short form) - Note Progress Note: Progress Note (short form) - Note Progress Note: awake, does not follow me staring facial twitching undergoing EEG on NG feeds neurology f/u noted. Vital Signs - 24 hr 04/01/18 04/01/18 04/01/18 14:01 20:00 20:40 Temperature 98.4 F Pulse Rate 73 74 Respiratory 16 18 16 Rate Blood Pressure 138/63 130/70 O2 Sat by Pulse 95 95 Oximetry (%) 04/01/18 04/02/18 04/02/18 22:00 02:00 04:00 Temperature 98.6 F 98.4 F 98.4 F Pulse Rate 96 H 79 79 Respiratory 16 18 18 Rate Blood Pressure 150/80 168/84 154/68 O2 Sat by Pulse Oximetry (%) 04/02/18 04/02/18 05:34 09:00 Temperature 98.5 F Pulse Rate 84 Respiratory 18 18 Rate Blood Pressure 154/75 O2 Sat by Pulse 94 L Oximetry (%) Current Medications Generic Name Dose Route Start Last Admin Trade Name Freq PRN Reason Stop Dose Admin Acetaminophen 1,000 mg 03/29/18 15:41 03/29/18 22:29 Ofirmev Injection - IVPB 1,000 mg Q6H PRN Administration PAIN LEVEL 6-10 Amlodipine Besylate 5 mg 03/30/18 10:00 04/02/18 09:42 Norvasc - PO 5 mg DAILY [facility] Administration Atorvastatin Calcium 10 mg 03/29/18 22:00 04/01/18 22:32 Lipitor - NGT 10 mg HS [facility] Administration Brimonidine Tartrate 1 drop 03/30/18 10:00 04/02/18 09:42 Alphagan 0.2% - OD 1 drop DAILY [facility] Administration Ceftriaxone Sodium 1 gm/ 100 mls @ 200 mls/hr 03/30/18 10:00 04/02/18 09:41 Dextrose IVPB 200 mls/hr DAILY [facility] Administration Protocol Levetiracetam 1,000 mg 03/29/18 22:00 04/02/18 09:43 Keppra Injection - IVPB 1,000 mg BID [facility] Administration Levothyroxine Sodium 25 mcg 03/30/18 07:00 04/02/18 06:23 Synthroid Injection - IVPUSH 25 mcg DAILY@0700 [facility] Administration Losartan Potassium 50 mg 03/30/18 10:00 04/02/18 09:42 Cozaar - PO 50 mg DAILY [facility] Administration Metoprolol Tartrate 25 mg 03/29/18 22:00 04/02/18 09:42 Lopressor - NGT 25 mg BID [facility] Administration Pantoprazole Sodium 40 mg 03/30/18 10:00 04/02/18 09:44 Protonix Iv IVPUSH 40 mg DAILY [facility] Administration Phenytoin Sodium 100 mg 03/30/18 14:00 04/02/18 05:28 Dilantin Injection - IVPB 100 mg TID [facility] Administration Senna 8.8 mg 03/29/18 22:00 04/01/18 22:32 Senna Oral Solution - PO 5 ml HS [facility] Administration Timolol Maleate 1 drop 03/30/18 10:00 04/02/18 09:44 Timoptic 0.5% OD 1 drop DAILY [facility] Administration PHYSICAL EXAM drowsy--do not follow commands. cvs-s1s2 lungs-bilateral breath sounds--RONCHI abd-soft,nt,bs + LE- no edema. A/P same continue present care abx monitor neuro following may need to consider peg-- spoke with Brandy Moss -- she is ok for peg placement -- GI eval called spoke with Neurologist poor prognosis Problem List - Problems (1) HTN (hypertension) Code(s): I10 - ESSENTIAL (PRIMARY) HYPERTENSION Qualifiers: Hypertension type: essential hypertension Qualified Code(s): I10 - Essential (primary) hypertension (2) Hypothyroid Code(s): E03.9 - HYPOTHYROIDISM, UNSPECIFIED Qualifiers: Hypothyroidism type: other Qualified Code(s): E03.8 - Other specified hypothyroidism (3) S/P craniotomy Code(s): Z98.890 - OTHER SPECIFIED POSTPROCEDURAL STATES (4) Subdural hemorrhage Code(s): I62.00 - NONTRAUMATIC SUBDURAL HEMORRHAGE, UNSPECIFIED (5) Hypokalemia Code(s): E87.6 - HYPOKALEMIA
--- NOTE | 2018-04-02 11:15 | PN ---
Progress Note, GERMINATION TESTING MANAGER - Note Progress Note: Seen during EEG set up, pt's eyes were open, not following commands or verbalizing. Twitching noted on right side of face.
--- NOTE | 2018-04-02 12:25 | PN ---
Progress Note, Physician History of Present Illness: pulmonary poorly responsive,-resp distress - Current Medication List Current Medications: Active Medications Acetaminophen (Ofirmev Injection -) 1,000 mg IVPB Q6H PRN PRN Reason: PAIN LEVEL 6-10 Last Admin: 03/29/18 22:29 Dose: 1,000 mg Amlodipine Besylate (Norvasc -) 5 mg PO DAILY [facility] Last Admin: 04/02/18 09:42 Dose: 5 mg Atorvastatin Calcium (Lipitor -) 10 mg NGT HS [facility] Last Admin: 04/01/18 22:32 Dose: 10 mg Brimonidine Tartrate (Alphagan 0.2% -) 1 drop OD DAILY [facility] Last Admin: 04/02/18 09:42 Dose: 1 drop Ceftriaxone Sodium 1 gm/ (Dextrose) 100 mls @ 200 mls/hr IVPB DAILY [facility]; Protocol Last Admin: 04/02/18 09:41 Dose: 200 mls/hr Levetiracetam (Keppra Injection -) 1,000 mg IVPB BID [facility] Last Admin: 04/02/18 09:43 Dose: 1,000 mg Levothyroxine Sodium (Synthroid Injection -) 25 mcg IVPUSH DAILY@0700 [facility] Last Admin: 04/02/18 06:23 Dose: 25 mcg Losartan Potassium (Cozaar -) 50 mg PO DAILY [facility] Last Admin: 04/02/18 09:42 Dose: 50 mg Metoprolol Tartrate (Lopressor -) 25 mg NGT BID [facility] Last Admin: 04/02/18 09:42 Dose: 25 mg Pantoprazole Sodium (Protonix Iv) 40 mg IVPUSH DAILY [facility] Last Admin: 04/02/18 09:44 Dose: 40 mg Phenytoin Sodium (Dilantin Injection -) 100 mg IVPB TID [facility] Last Admin: 04/02/18 05:28 Dose: 100 mg Senna (Senna Oral Solution -) 8.8 mg PO HS [facility] Last Admin: 04/01/18 22:32 Dose: 5 ml Timolol Maleate (Timoptic 0.5%) 1 drop OD DAILY [facility] Last Admin: 04/02/18 09:44 Dose: 1 drop - Objective Vital Signs: Vital Signs Temperature 98.5 F 04/02/18 05:34 Pulse Rate 84 04/02/18 05:34 Respiratory Rate 18 04/02/18 09:00 Blood Pressure 154/75 04/02/18 05:34 O2 Sat by Pulse Oximetry (%) 94 L 04/02/18 09:00 Constitutional: Yes: Thin, Other (poorly responsive) Eyes: Yes: WNL HENT: Yes: WNL Neck: Yes: WNL Cardiovascular: Yes: Pulse Irregular, S1, S2 Respiratory: Yes: Diminished Gastrointestinal: Yes: Normal Bowel Sounds, Soft Extremities: Yes: WNL Edema: No Labs: CBC, BMP 03/30/18 07:00 03/30/18 07:00 INR, PTT INR 1.35 (0.83-1.09) H 03/17/18 05:30 Problem List - Problems (1) Respiratory failure Code(s): J96.90 - RESPIRATORY FAILURE, UNSP, UNSP W HYPOXIA OR HYPERCAPNIA (2) History of craniotomy Code(s): Z98.890 - OTHER SPECIFIED POSTPROCEDURAL STATES (3) History of endovascular stent graft for abdominal aortic aneurysm (AAA) Code(s): Z95.828 - PRESENCE OF OTHER VASCULAR IMPLANTS AND GRAFTS (4) Pneumonia Code(s): J18.9 - PNEUMONIA, UNSPECIFIED ORGANISM Qualifiers: Pneumonia type: aspiration pneumonia (5) S/P CABG (coronary artery bypass graft) Code(s): Z95.1 - PRESENCE OF AORTOCORONARY BYPASS GRAFT (6) CAD (coronary artery disease) Code(s): I25.10 - ATHSCL HEART DISEASE OF [place] CORONARY ARTERY W/O ANG PCTRS Qualifiers: [place] vs. transplanted heart: [place] heart Associated angina: without angina (7) HTN (hypertension) Code(s): I10 - ESSENTIAL (PRIMARY) HYPERTENSION Qualifiers: Hypertension type: essential hypertension Qualified Code(s): I10 - Essential (primary) hypertension (8) Hypothyroid Code(s): E03.9 - HYPOTHYROIDISM, UNSPECIFIED Qualifiers: Hypothyroidism type: other Qualified Code(s): E03.8 - Other specified hypothyroidism (9) Afib Code(s): I48.91 - UNSPECIFIED ATRIAL FIBRILLATION (10) MALINDA (acute kidney injury) Code(s): N17.9 - ACUTE KIDNEY FAILURE, UNSPECIFIED (11) S/P craniotomy Code(s): Z98.890 - OTHER SPECIFIED POSTPROCEDURAL STATES (12) Subdural hemorrhage Code(s): I62.00 - NONTRAUMATIC SUBDURAL HEMORRHAGE, UNSPECIFIED Assessment/Plan A/P S/P Acute Respiratory Failure Pneumonia likely Aspiration Sepsis Acute on Chronic Subdural Hematoma s/p [place]/Evacuation of Hematoma Seizures +Troponins likely [place] Ischemia Atrial Fibrillation Acute Kidney Injury HTN CKD Hypothyroidism - O2 to keep SpO2 >90% - continue antibiotics - rate control - defer anticoagulation due to subdural hematoma - monitor urine output, creatinine - replete lytes - continue antiepileptics per neuro - mechanical DVT prophylaxis DR GONSALES
--- NOTE | 2018-04-02 15:27 | CON.GI ---
Consult Consult Specialty:: GI Reason for Consultation:: PEG - History of Present Illness History of Present Illness: Chart reviewed. Events noted. GI service was called for PEG placement. - Past Medical History [employer]: Yes: Dementia Cardio/Vascular: Yes: CAD (CABG- 2004), HTN, Hyperlipdemia, Other (infrarenal AAA 4.7cm (November 2014)). No: AFIB, Aneurysm, Aortic Insufficiency, Aortic Stenosis, CHF, Deep Vein Thrombosis, DE, Mitral Insufficiency, Mitral Stenosis, Murmur, Pulmonary Hypertension Musculoskeletal: Yes: Chronic low back pain (with radiculopathy) Rheumatology: Yes: Gout, Other (Polymyalgia Rheumatica) Endocrine: Yes: Hypothyroidism. No: [place]'s Disease, Archie's Disease, Diabetes Insipidus, Diabetes Mellitus, Hyperparathyroidism, Hyperthyroidism, Osteopenia, SIADH, Other - Past Surgical History Past Surgical History: Yes: Appendectomy, CABG ([facility]), Tonsillectomy. No: None, AAA Repair, AICD, Amputation, Arthrosocopy, AV Fistula/Graft, Bariatric Surgery , Breast Biopsy, Bypass, Carotid Endarterectomy, Cataract Removal, Cholecystectomy, Colectomy, Colonoscopy, Colostomy, Craniotomy, , Cystectomy, Hernia Repair, Hysterectomy, Ileal Conduit, Ileosotomy, Joint Replacement, Kidney Transplant, Laminectomy, Liver Transplant, Mastectomy, Nephrectomy, Oopherectomy, Orchiectomy, Permanent Pacemaker, Prostatectomy, Splenectomy, Stent, Thoracotomy, TURP, Tubal Ligation, Upper Endoscopy, Valve Replacement, Vasectomy, Vein Stripping/Ligation - Alcohol/Substance Use Hx Alcohol Use: Yes (SOCIALLY) - Smoking History Smoking history: Never smoked Have you smoked in the past 12 months: No Aproximately how many cigarettes per day: 0 Home Medications - Allergies Allergies/Adverse Reactions: Allergies Allergy/AdvReac Type Severity Reaction Status Date / Time No Known Allergies Allergy Verified 03/16/18 12:52 - Home Medications Home Medications: Ambulatory Orders Brimonidine Tartrate/Timolol [Combigan 0.2%-0.5% Eye Drops] 1 drop OD DAILY 01/13 Eluxadoline [Viberzi] 75 mg PO DAILY 10/01/17 Aspirin [ASA -] 81 mg PO DAILY tab.chew 10/07/17 Metoprolol Tartrate [Lopressor -] 25 mg PO BID #60 tablet 10/07/17 Acetaminophen [Tylenol .Regular Strength -] 650 mg PO Q6H PRN #30 tablet Amlodipine Besylate [Norvasc -] 10 mg PO DAILY #30 tablet 02/25/18 Chlorthalidone [Hygroton -] 25 mg PO DAILY #30 tablet 02/25/18 Docusate Sodium [Colace -] 100 mg PO DAILY #60 capsule 02/25/18 Gabapentin [Neurontin -] 100 mg PO TID #90 capsule 02/25/18 Potassium Chloride [K-Dur -] 20 meq PO DAILY #30 tablet.er 02/25/18 levETIRAcetam [Keppra -] 500 mg PO BID #60 tablet 02/25/18 Levothyroxine [Synthroid -] 50 mcg PO DAILY@0600 03/16/18 Family Disease History - Family Disease History Family History: Unable to Obtain Physical Exam-GI Vital Signs: Vital Signs Temperature 98.2 F 04/02/18 13:59 Pulse Rate 76 04/02/18 13:59 Respiratory Rate 20 04/02/18 13:59 Blood Pressure 140/63 04/02/18 13:59 O2 Sat by Pulse Oximetry (%) 94 L 04/02/18 09:00 Constitutional: Yes: No Distress, Calm Eyes: Yes: Conjunctiva Clear HENT: Yes: Atraumatic Neck: Yes: Supple Cardiovascular: No: Bradycardia, Tachycardia Respiratory: No: Accessory Muscle Use, Bradypnea, Cough, SOB, Stridor Gastrointestinal Inspection: No: Ascites, Distention ...Auscultate: Yes: Normoactive Bowel Sounds ...Palpate: Yes: Soft. No: Firm/Rigid, Guarding, Mass, Tenderness, Tenderness, Epigastium, Tenderness, Rebound Neurological: Yes: Other (non-communcative) Labs: CBC, BMP 03/30/18 07:00 03/30/18 07:00 INR, PTT INR 1.35 (0.83-1.09) H 03/17/18 05:30 Laboratory Tests 03/16/18 03/16/18 03/16/18 13:00 13:00 13:00 WBC 7.4 RBC 3.68 L Hgb 11.1 L Hct 30.8 L MCV 83.7 MCH 30.2 MCHC 36.1 H RDW 12.7 Plt Count 231 MPV 6.8 L Absolute Neuts (auto) Neutrophils % Lymphocytes % Monocytes % Eosinophils % Basophils % Nucleated RBC % PT with INR INR PTT (Actin FS) Anticoagulation Therapy Puncture Site ABG pH ABG pCO2 at Pt Temp ABG pO2 at Pt Temp ABG HCO3 ABG O2 Sat (Measured) ABG O2 Content ABG Base Excess Ugo Test O2 Delivery Device Oxygen Flow Rate Vent Mode Vent Rate Mechanical Rate PEEP Pressure Support Vent Sodium 137 Potassium 3.1 L Chloride 97 L D Carbon Dioxide 30 Anion Gap 10 BUN 35 H Creatinine 2.0 H Creat Clearance w eGFR 31.76 Random Glucose 119 H D Calcium 9.1 Phosphorus Magnesium Total Bilirubin 0.5 AST 18 ALT 15 Alkaline Phosphatase 96 D Creatine Kinase 21 L Troponin I 0.09 H D Total Protein 6.7 Albumin 3.3 L Random Vancomycin Blood Type Antibody Screen 03/16/18 03/16/18 03/16/18 13:00 14:31 19:10 WBC RBC Hgb Hct MCV MCH MCHC RDW Plt Count MPV Absolute Neuts (auto) Neutrophils % Lymphocytes % Monocytes % Eosinophils % Basophils % Nucleated RBC % PT with INR 15.00 H INR 1.33 H PTT (Actin FS) 33.5 Anticoagulation Therapy Puncture Site ABG pH ABG pCO2 at Pt Temp ABG pO2 at Pt Temp ABG HCO3 ABG O2 Sat (Measured) ABG O2 Content ABG Base Excess Ugo Test O2 Delivery Device Oxygen Flow Rate Vent Mode Vent Rate Mechanical Rate PEEP Pressure Support Vent Sodium Potassium Chloride Carbon Dioxide Anion Gap BUN Creatinine Creat Clearance w eGFR Random Glucose Calcium Phosphorus Magnesium Total Bilirubin AST ALT Alkaline Phosphatase Creatine Kinase Troponin I 0.06 H D Total Protein Albumin Random Vancomycin Blood Type O NEGATIVE Antibody Screen Negative 03/17/18 03/17/18 03/17/18 05:30 05:30 05:30 WBC 7.3 RBC 3.37 L Hgb 10.2 L Hct 27.8 L MCV 82.6 MCH 30.3 MCHC 36.7 H RDW 12.7 Plt Count 283 D MPV 7.3 L Absolute Neuts (auto) 4.7 Neutrophils % 64.9 Lymphocytes % 19.1 D Monocytes % 11.6 H Eosinophils % 4.0 Basophils % 0.4 Nucleated RBC % 0 PT with INR 15.20 H INR 1.35 H PTT (Actin FS) 33.6 Anticoagulation Therapy Puncture Site ABG pH ABG pCO2 at Pt Temp ABG pO2 at Pt Temp ABG HCO3 ABG O2 Sat (Measured) ABG O2 Content ABG Base Excess Ugo Test O2 Delivery Device Oxygen Flow Rate Vent Mode Vent Rate Mechanical Rate PEEP Pressure Support Vent Sodium 139 Potassium 2.7 L* Chloride 99 Carbon Dioxide 29 Anion Gap 11 BUN 28 H Creatinine 1.6 H Creat Clearance w eGFR 41.09 Random Glucose 81 D Calcium 9.2 Phosphorus Magnesium Total Bilirubin 0.7 AST 17 ALT 19 D Alkaline Phosphatase 92 Creatine Kinase Troponin I 0.06 H Total Protein 6.8 Albumin 3.4 Random Vancomycin Blood Type Antibody Screen 03/18/18 03/18/18 03/18/18 05:30 05:30 15:00 WBC 7.4 RBC 3.47 L Hgb 10.4 L Hct 28.5 L MCV 82.3 MCH 30.1 MCHC 36.5 H RDW 12.6 Plt Count 279 MPV 6.8 L Absolute Neuts (auto) 4.8 Neutrophils % 63.7 Lymphocytes % 18.9 Monocytes % 11.8 H Eosinophils % 5.1 H Basophils % 0.5 Nucleated RBC % 0 PT with INR INR PTT (Actin FS) Anticoagulation Therapy Puncture Site ABG pH ABG pCO2 at Pt Temp ABG pO2 at Pt Temp ABG HCO3 ABG O2 Sat (Measured) ABG O2 Content ABG Base Excess Ugo Test O2 Delivery Device Oxygen Flow Rate Vent Mode Vent Rate Mechanical Rate PEEP Pressure Support Vent Sodium 141 139 Potassium 2.9 L* 3.4 L Chloride 100 98 Carbon Dioxide 30 30 Anion Gap 11 11 BUN 23 H 22 H Creatinine 1.4 H 1.5 H Creat Clearance w eGFR 47.94 44.27 Random Glucose 76 88 Calcium 9.2 9.0 Phosphorus 2.2 L Magnesium 1.6 L Total Bilirubin 0.8 0.5 AST 21 D 22 ALT 15 D 16 Alkaline Phosphatase 87 88 Creatine Kinase Troponin I Total Protein 6.4 6.5 Albumin 3.2 L 3.3 L Random Vancomycin Blood Type Antibody Screen 03/18/18 03/19/18 03/19/18 20:50 05:30 05:30 WBC 11.2 H RBC 3.87 L Hgb 11.1 L Hct 31.9 L MCV 82.5 MCH 28.8 MCHC 34.9 RDW 12.9 Plt Count 281 MPV 6.6 L Absolute Neuts (auto) Neutrophils % Lymphocytes % Monocytes % Eosinophils % Basophils % Nucleated RBC % PT with INR INR PTT (Actin FS) Anticoagulation Therapy Puncture Site ABG pH ABG pCO2 at Pt Temp ABG pO2 at Pt Temp ABG HCO3 ABG O2 Sat (Measured) ABG O2 Content ABG Base Excess Ugo Test O2 Delivery Device Oxygen Flow Rate Vent Mode Vent Rate Mechanical Rate PEEP Pressure Support Vent Sodium 138 140 Potassium 3.3 L 2.8 L* Chloride 99 99 Carbon Dioxide 30 29 Anion Gap 9 12 BUN 20 H 18 Creatinine 1.5 H 1.4 H Creat Clearance w eGFR 44.27 47.94 Random Glucose 88 80 Calcium 8.6 8.7 Phosphorus 2.5 Magnesium 1.5 L Total Bilirubin 0.5 0.8 AST 22 20 ALT 15 14 Alkaline Phosphatase 82 86 Creatine Kinase Troponin I Total Protein 6.1 L 6.4 Albumin 3.0 L 3.2 L Random Vancomycin Blood Type Antibody Screen 03/19/18 03/19/18 03/19/18 16:10 19:25 19:40 WBC RBC Hgb Hct MCV MCH MCHC RDW Plt Count MPV Absolute Neuts (auto) Neutrophils % Lymphocytes % Monocytes % Eosinophils % Basophils % Nucleated RBC % PT with INR INR PTT (Actin FS) Anticoagulation Therapy No Result Required. Puncture Site Left radial ABG pH 7.47 H ABG pCO2 at Pt Temp 34.2 L ABG pO2 at Pt Temp 72.0 ABG HCO3 24.5 ABG O2 Sat (Measured) 95.8 ABG O2 Content 13.7 L ABG Base Excess 1.5 Ugo Test Positive O2 Delivery Device Other Oxygen Flow Rate 60% Vent Mode A/c Vent Rate 16 Mechanical Rate No Result Required. PEEP 5.0 Pressure Support Vent 400 Sodium 140 Potassium 3.1 L Chloride 101 Carbon Dioxide 25 Anion Gap 14 BUN 20 H Creatinine 1.7 H Creat Clearance w eGFR 38.32 Random Glucose 80 Calcium 8.6 Phosphorus Magnesium Total Bilirubin AST ALT Alkaline Phosphatase Creatine Kinase Troponin I Total Protein Albumin Random Vancomycin Blood Type O NEGATIVE Antibody Screen Negative 03/20/18 03/20/18 03/20/18 05:25 05:25 16:15 WBC 19.0 H RBC 3.09 L Hgb 9.0 L Hct 25.9 L D MCV 84.0 MCH 29.1 MCHC 34.7 RDW 12.8 Plt Count 258 MPV 7.1 L Absolute Neuts (auto) Neutrophils % Lymphocytes % Monocytes % Eosinophils % Basophils % Nucleated RBC % PT with INR INR PTT (Actin FS) Anticoagulation Therapy Puncture Site ABG pH ABG pCO2 at Pt Temp ABG pO2 at Pt Temp ABG HCO3 ABG O2 Sat (Measured) ABG O2 Content ABG Base Excess Ugo Test O2 Delivery Device Oxygen Flow Rate Vent Mode Vent Rate Mechanical Rate PEEP Pressure Support Vent Sodium 143 144 Potassium 2.9 L* 3.7 D Chloride 102 107 Carbon Dioxide 26 25 Anion Gap 15 12 BUN 22 H 26 H Creatinine 1.8 H 1.8 H Creat Clearance w eGFR 35.87 35.87 Random Glucose 70 L 104 D Calcium 8.2 L 7.9 L Phosphorus 2.8 Magnesium 1.5 L Total Bilirubin 0.8 0.6 AST 20 16 ALT 9 L D 9 L Alkaline Phosphatase 79 77 Creatine Kinase Troponin I Total Protein 5.5 L 5.1 L Albumin 2.6 L 2.3 L Random Vancomycin Blood Type Antibody Screen 03/21/18 03/21/18 03/21/18 05:30 05:30 05:30 WBC 16.2 H RBC 3.01 L Hgb 8.7 L Hct 25.4 L MCV 84.4 MCH 28.9 MCHC 34.2 RDW 13.0 Plt Count 218 MPV 7.1 L Absolute Neuts (auto) Neutrophils % Lymphocytes % Monocytes % Eosinophils % Basophils % Nucleated RBC % PT with INR INR PTT (Actin FS) Anticoagulation Therapy Puncture Site ABG pH ABG pCO2 at Pt Temp ABG pO2 at Pt Temp ABG HCO3 ABG O2 Sat (Measured) ABG O2 Content ABG Base Excess Ugo Test O2 Delivery Device Oxygen Flow Rate Vent Mode Vent Rate Mechanical Rate PEEP Pressure Support Vent Sodium 141 Potassium 3.3 L Chloride 106 Carbon Dioxide 26 Anion Gap 9 BUN 28 H Creatinine 1.8 H Creat Clearance w eGFR 35.87 Random Glucose 101 Calcium 7.8 L Phosphorus 2.0 L D Magnesium 1.9 D Total Bilirubin 0.5 AST 14 L ALT 7 L D Alkaline Phosphatase 77 Creatine Kinase Troponin I Total Protein 5.0 L Albumin 2.2 L Random Vancomycin 12.83 Blood Type Antibody Screen 03/22/18 03/22/18 03/24/18 05:30 05:30 05:30 WBC 9.8 7.4 RBC 2.92 L 3.43 L Hgb 8.6 L 10.0 L Hct 24.5 L 28.9 L D MCV 83.9 84.3 MCH 29.5 29.2 MCHC 35.2 34.6 RDW 13.0 13.0 Plt Count 248 296 MPV 7.0 L 6.9 L Absolute Neuts (auto) 7.3 Neutrophils % 74.7 Lymphocytes % 9.5 D Monocytes % 8.5 Eosinophils % 6.9 H Basophils % 0.4 Nucleated RBC % 0 PT with INR INR PTT (Actin FS) Anticoagulation Therapy Puncture Site ABG pH ABG pCO2 at Pt Temp ABG pO2 at Pt Temp ABG HCO3 ABG O2 Sat (Measured) ABG O2 Content ABG Base Excess Ugo Test O2 Delivery Device Oxygen Flow Rate Vent Mode Vent Rate Mechanical Rate PEEP Pressure Support Vent Sodium 139 Potassium 3.3 L Chloride 105 Carbon Dioxide 26 Anion Gap 8 BUN 27 H Creatinine 1.6 H Creat Clearance w eGFR 41.09 Random Glucose 89 Calcium 7.7 L Phosphorus 2.7 D Magnesium 1.7 L Total Bilirubin 0.5 AST 17 D ALT 8 L Alkaline Phosphatase 95 D Creatine Kinase Troponin I Total Protein 5.2 L Albumin 2.1 L Random Vancomycin Blood Type Antibody Screen 03/24/18 03/25/18 03/25/18 05:30 05:30 05:30 WBC 7.0 RBC 3.23 L Hgb 9.3 L Hct 27.1 L MCV 83.9 MCH 28.9 MCHC 34.4 RDW 13.2 Plt Count 310 MPV 6.9 L Absolute Neuts (auto) 4.1 Neutrophils % 58.4 D Lymphocytes % 17.3 D Monocytes % 16.3 H D Eosinophils % 7.7 H Basophils % 0.3 Nucleated RBC % 0 PT with INR INR PTT (Actin FS) Anticoagulation Therapy Puncture Site ABG pH ABG pCO2 at Pt Temp ABG pO2 at Pt Temp ABG HCO3 ABG O2 Sat (Measured) ABG O2 Content ABG Base Excess Ugo Test O2 Delivery Device Oxygen Flow Rate Vent Mode Vent Rate Mechanical Rate PEEP Pressure Support Vent Sodium 138 137 Potassium 3.5 3.1 L Chloride 103 102 Carbon Dioxide 25 28 Anion Gap 10 7 L BUN 22 H 19 H Creatinine 1.3 1.4 H Creat Clearance w eGFR 52.22 47.94 Random Glucose 173 H D 149 H Calcium 8.1 L 8.0 L Phosphorus 2.3 L 2.1 L Magnesium 1.6 L 1.7 L Total Bilirubin 0.4 0.2 AST 26 D 24 ALT 15 D 14 Alkaline Phosphatase 127 H D 114 D Creatine Kinase Troponin I Total Protein 5.1 L 5.0 L Albumin 2.0 L 2.0 L Random Vancomycin Blood Type Antibody Screen 03/25/18 03/26/18 03/26/18 16:00 05:30 05:30 WBC 7.4 RBC 3.15 L Hgb 9.0 L Hct 26.3 L MCV 83.6 MCH 28.7 MCHC 34.4 RDW 12.8 Plt Count 319 MPV 6.8 L Absolute Neuts (auto) 3.7 Neutrophils % 50.8 Lymphocytes % 20.9 D Monocytes % 18.2 H Eosinophils % 9.7 H Basophils % 0.4 Nucleated RBC % 0 PT with INR INR PTT (Actin FS) Anticoagulation Therapy Puncture Site ABG pH ABG pCO2 at Pt Temp ABG pO2 at Pt Temp ABG HCO3 ABG O2 Sat (Measured) ABG O2 Content ABG Base Excess Ugo Test O2 Delivery Device Oxygen Flow Rate Vent Mode Vent Rate Mechanical Rate PEEP Pressure Support Vent Sodium 138 138 Potassium 3.7 3.5 Chloride 103 103 Carbon Dioxide 27 27 Anion Gap 8 8 BUN 19 H 18 Creatinine 1.3 1.3 Creat Clearance w eGFR 52.22 52.22 Random Glucose 168 H 122 H D Calcium 8.1 L 8.0 L Phosphorus 2.0 L 2.1 L Magnesium 2.0 2.0 Total Bilirubin 0.2 0.2 AST 29 D 28 ALT 16 18 Alkaline Phosphatase 109 102 Creatine Kinase Troponin I Total Protein 4.7 L 4.8 L Albumin 1.9 L 1.9 L Random Vancomycin Blood Type Antibody Screen 03/26/18 03/27/18 03/27/18 05:30 05:30 05:30 WBC 9.6 RBC 3.66 L Hgb 10.6 L Hct 30.5 L D MCV 83.4 MCH 29.1 MCHC 34.8 RDW 13.1 Plt Count 393 D MPV 6.4 L Absolute Neuts (auto) 6.0 Neutrophils % 61.8 D Lymphocytes % 16.6 D Monocytes % 13.9 H Eosinophils % 7.1 H Basophils % 0.6 Nucleated RBC % 0 PT with INR INR PTT (Actin FS) Anticoagulation Therapy Puncture Site ABG pH ABG pCO2 at Pt Temp ABG pO2 at Pt Temp ABG HCO3 ABG O2 Sat (Measured) ABG O2 Content ABG Base Excess Ugo Test O2 Delivery Device Oxygen Flow Rate Vent Mode Vent Rate Mechanical Rate PEEP Pressure Support Vent Sodium 136 Potassium 3.4 L Chloride 99 Carbon Dioxide 28 Anion Gap 9 BUN 14 Creatinine 1.2 Creat Clearance w eGFR 57.27 Random Glucose 90 D Calcium 8.3 L Phosphorus Cancelled 2.6 D Magnesium Cancelled 1.7 L Total Bilirubin 0.3 AST 28 ALT 19 Alkaline Phosphatase 133 H D Creatine Kinase Troponin I Total Protein 5.6 L Albumin 2.3 L Random Vancomycin Blood Type Antibody Screen 03/28/18 03/28/18 03/29/18 05:30 05:30 05:30 WBC 8.3 8.7 RBC 3.24 L 3.44 L Hgb 9.5 L 10.0 L Hct 27.2 L 28.8 L MCV 84.1 83.8 MCH 29.4 29.2 MCHC 34.9 34.8 RDW 13.1 13.0 Plt Count 360 335 MPV 6.1 L 6.4 L Absolute Neuts (auto) 5.2 5.5 Neutrophils % 63.0 62.7 Lymphocytes % 17.5 15.9 Monocytes % 11.8 H 12.6 H Eosinophils % 7.0 H 8.3 H Basophils % 0.7 0.5 Nucleated RBC % 0 0 PT with INR INR PTT (Actin FS) Anticoagulation Therapy Puncture Site ABG pH ABG pCO2 at Pt Temp ABG pO2 at Pt Temp ABG HCO3 ABG O2 Sat (Measured) ABG O2 Content ABG Base Excess Ugo Test O2 Delivery Device Oxygen Flow Rate Vent Mode Vent Rate Mechanical Rate PEEP Pressure Support Vent Sodium 136 Potassium 3.2 L Chloride 97 L Carbon Dioxide 30 Anion Gap 9 BUN 14 Creatinine 1.2 Creat Clearance w eGFR 57.27 Random Glucose 121 H D Calcium 8.2 L Phosphorus 2.6 Magnesium 1.8 Total Bilirubin 0.3 AST 35 D ALT 22 Alkaline Phosphatase 116 D Creatine Kinase Troponin I Total Protein 5.4 L Albumin 2.2 L Random Vancomycin Blood Type Antibody Screen 03/29/18 03/30/18 03/30/18 05:30 07:00 07:00 WBC 8.5 RBC 3.54 L Hgb 10.4 L Hct 29.5 L MCV 83.5 MCH 29.5 MCHC 35.4 RDW 13.4 Plt Count 333 MPV 6.5 L Absolute Neuts (auto) 5.1 Neutrophils % 60.0 Lymphocytes % 16.6 Monocytes % 14.2 H Eosinophils % 8.7 H Basophils % 0.5 Nucleated RBC % 0 PT with INR INR PTT (Actin FS) Anticoagulation Therapy Puncture Site ABG pH ABG pCO2 at Pt Temp ABG pO2 at Pt Temp ABG HCO3 ABG O2 Sat (Measured) ABG O2 Content ABG Base Excess Ugo Test O2 Delivery Device Oxygen Flow Rate Vent Mode Vent Rate Mechanical Rate PEEP Pressure Support Vent Sodium 134 L 135 L Potassium 3.3 L 3.6 Chloride 96 L 96 L Carbon Dioxide 30 27 Anion Gap 8 12 BUN 13 15 Creatinine 1.2 1.2 Creat Clearance w eGFR 57.27 57.27 Random Glucose 117 H 125 H Calcium 7.9 L 8.1 L Phosphorus 2.5 2.9 Magnesium 1.7 L 2.2 D Total Bilirubin 0.1 L 0.2 AST 69 H D 82 H ALT 37 D 42 Alkaline Phosphatase 118 H 111 Creatine Kinase Troponin I Total Protein 5.5 L 5.2 L Albumin 2.2 L 2.1 L Random Vancomycin Blood Type Antibody Screen Problem List - Problems (1) Afib Code(s): I48.91 - UNSPECIFIED ATRIAL FIBRILLATION (2) Cerebrovascular accident (CVA) Code(s): I63.9 - CEREBRAL INFARCTION, UNSPECIFIED (3) Demand ischemia Code(s): I24.8 - OTHER FORMS OF ACUTE ISCHEMIC HEART DISEASE (4) Focal seizures Code(s): R56.9 - UNSPECIFIED CONVULSIONS (5) History of craniotomy Code(s): Z98.890 - OTHER SPECIFIED POSTPROCEDURAL STATES (6) History of endovascular stent graft for abdominal aortic aneurysm (AAA) Code(s): Z95.828 - PRESENCE OF OTHER VASCULAR IMPLANTS AND GRAFTS (7) Hyperlipidemia Code(s): E78.5 - HYPERLIPIDEMIA, UNSPECIFIED Qualifiers: Hyperlipidemia type: pure hypercholesterolemia Qualified Code(s): E78.00 - Pure hypercholesterolemia, unspecified; E78.0 - Pure hypercholesterolemia (8) Hypokalemia Code(s): E87.6 - HYPOKALEMIA (9) Pneumonia Code(s): J18.9 - PNEUMONIA, UNSPECIFIED ORGANISM Qualifiers: Pneumonia type: aspiration pneumonia (10) Respiratory failure Code(s): J96.90 - RESPIRATORY FAILURE, UNSP, UNSP W HYPOXIA OR HYPERCAPNIA (11) S/P CABG (coronary artery bypass graft) Code(s): Z95.1 - PRESENCE OF AORTOCORONARY BYPASS GRAFT (12) MALINDA (acute kidney injury) Code(s): N17.9 - ACUTE KIDNEY FAILURE, UNSPECIFIED (13) Acute renal insufficiency Code(s): N28.9 - DISORDER OF KIDNEY AND URETER, UNSPECIFIED Assessment/Plan An 87M, frail with acute and chronic medical issues as outlined above who is unable to maintain any PO intake due to 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 HCP agreed to PEG placement. I discussed with her that the PEG may not prevent aspiration of food into the lung, or extend patients life. It can be used, however, for providing adequate nutrition, hydration and medications. I explained to the HCP that a small chance of bleeding and infection may occur. I informed her to expect a call from department of anesthesiology to discuss their part and potential risks. Brandy Moss verbalized understanding and consented to the procedure. The conversation was witnessed by the patients nurse.
[2018-04-02] MEDS: ATORVASTATIN CA 10 MG TABLET (FP) NGT SCH (22:26)
[2018-04-02] MEDS: SENNOSIDES 8.8 MG/5 ML BULK BOTTLE PO SCH (22:26)
[2018-04-03] MEDS ORDERED: PT OWN MED DRAWER 7, Y5N ONE ×4 (04:30→22:49)
[2018-04-03] MEDS: PHENYTOIN SODIUM 100 MG/2 ML VIAL IVPB SCH ×3 (05:20→22:48)
[2018-04-03] MEDS: LEVOTHYROXINE SODIUM 100 MCG VIAL IVPUSH SCH (06:28)
[2018-04-03 07:14] LABS: BASO % 0.4 % (0-2.0); EOS % 12.2 % (0-4.5); HEMATOCRIT 30.4 % (35.4-49); HEMOGLOBIN 10.3 GM/dL (11.7-16.9); LYMPH % 17.5 % (8-40); MCH 28.6 pg (25.7-33.7); MCHC 33.7 g/dl (32.0-35.9); MEAN CELL VOLUME 84.7 fl (80-96); MEAN PLT VOLUME 6.5 fl (7.5-11.1); MONO % 12.5 % (3.8-10.2); NEUT % 57.4 % (42.8-82.8); PLATELET COUNT 327 K/MM3 (134-434); RBC 3.59 M/mm3 (4.00-5.60); RDW 13.7 % (11.9-15.9); WHITE BLOOD COUNT 8.3 K/mm3 (4.0-10.0)
[2018-04-03 07:28] LABS: INR 1.5 (0.83-1.09)
[2018-04-03 07:58] LABS: CHLORIDE 98 mmol/L (98-107); POTASSIUM 3.6 mmol/L (3.5-5.1); SODIUM 137 mmol/L (136-145)
[2018-04-03] MEDS ORDERED: ceFAZolin SODIUM 1 GM VIAL IVPB ONE (08:00)
[2018-04-03 08:15] LABS: ALBUMIN 2.5 g/dl (3.4-5.0); ALK PHOS 119 U/L (45-117); ANION GAP 12 MMOL/L (8-16); BILIRUBIN,TOTAL 0.3 mg/dL (0.2-1.0); BLOOD UREA NITROGEN 21 mg/dL (7-18); CALCIUM 8.7 mg/dL (8.5-10.1); CO2 27 mmol/L (21-32); CREATININE 1.1 mg/dL (0.7-1.3); GLUCOSE,RANDOM 95 mg/dL (74-106); SGOT/AST 114 U/L (15-37); SGPT/ALT 78 U/L (12-78); TOT PROT 5.8 g/dl (6.4-8.2)
[2018-04-03] MEDS ORDERED: ceFAZolin SODIUM 1 GM VIAL ONE (08:21)
--- NOTE | 2018-04-03 08:40 | PROC ---
Endoscopy Procedure Endoscopy procedure completed. Please see scanned procedure report. s/p new PEG. Please see orders. Do not use the PEG until cleared by GI
[2018-04-03] MEDS ORDERED: cefTRIAXone SODIUM 1 GM VIAL ONE (09:53)
[2018-04-03] MEDS ORDERED: DEXTROSE 5%-WATER 100 ML IVPB ONE (09:53)
[2018-04-03] MEDS: CEFTRIAXONE 1 GM in DEXTROSE 5%-WATER 100 ML IVPB SCH (10:09)
[2018-04-03] MEDS: PANTOPRAZOLE SODIUM 40 MG VIAL IVPUSH SCH (10:09)
[2018-04-03] MEDS: TIMOLOL 0.5% OPHTHALMIC SOL 5 ML BOTTLE OD SCH (10:09)
[2018-04-03] MEDS: BRIMONIDINE TARTRATE 0.2% OPHTHALMIC 5 ML BOTTLE OD SCH (10:09)
--- NOTE | 2018-04-03 10:34 | PN ---
Progress Note, Physician History of Present Illness: Lethargic and poorly responsive, nonverbal and remains in SR. s/p PEG. - Current Medication List Current Medications: Active Medications Acetaminophen (Ofirmev Injection -) 1,000 mg IVPB Q6H PRN PRN Reason: PAIN LEVEL 6-10 Last Admin: 03/29/18 22:29 Dose: 1,000 mg Amlodipine Besylate (Norvasc -) 5 mg PO DAILY [facility] Last Admin: 04/02/18 09:42 Dose: 5 mg Atorvastatin Calcium (Lipitor -) 10 mg NGT HS [facility] Last Admin: 04/02/18 22:26 Dose: 10 mg Brimonidine Tartrate (Alphagan 0.2% -) 1 drop OD DAILY [facility] Last Admin: 04/03/18 10:09 Dose: 1 drop Ceftriaxone Sodium 1 gm/ (Dextrose) 100 mls @ 200 mls/hr IVPB DAILY [facility]; Protocol Last Admin: 04/03/18 10:09 Dose: 200 mls/hr Levetiracetam (Keppra Injection -) 1,000 mg IVPB BID [facility] Last Admin: 04/02/18 22:25 Dose: 1,000 mg Levothyroxine Sodium (Synthroid Injection -) 25 mcg IVPUSH DAILY@0700 [facility] Last Admin: 04/03/18 06:28 Dose: 25 mcg Losartan Potassium (Cozaar -) 50 mg PO DAILY [facility] Last Admin: 04/02/18 09:42 Dose: 50 mg Metoprolol Tartrate (Lopressor -) 25 mg NGT BID [facility] Last Admin: 04/02/18 22:26 Dose: 25 mg Pantoprazole Sodium (Protonix Iv) 40 mg IVPUSH DAILY [facility] Last Admin: 04/03/18 10:09 Dose: 40 mg Phenytoin Sodium (Dilantin Injection -) 100 mg IVPB TID [facility] Last Admin: 04/03/18 05:20 Dose: 100 mg Phytonadione (Aqua Mephy[place] Injection -) 5 mg SQ ONCE ONE Stop: 04/03/18 10:22 Senna (Senna Oral Solution -) 8.8 mg PO HS [facility] Last Admin: 04/02/18 22:26 Dose: 8.8 ml Timolol Maleate (Timoptic 0.5%) 1 drop OD DAILY [facility] Last Admin: 04/03/18 10:09 Dose: 1 drop - Objective Vital Signs: Vital Signs Temperature 98.2 F 04/03/18 09:24 Pulse Rate 70 04/03/18 09:24 Respiratory Rate 18 04/03/18 09:24 Blood Pressure 158/72 04/03/18 09:24 O2 Sat by Pulse Oximetry (%) 100 04/03/18 09:24 Constitutional: Yes: No Distress, Calm, Thin Neck: Yes: Supple Cardiovascular: Yes: Regular Rate and Rhythm Respiratory: Yes: Regular, Diminished, On Nasal O2 Gastrointestinal: Yes: Soft, Hypoactive Bowel Sounds, Other (PEG in place) Edema: No Labs: CBC, BMP 04/03/18 06:30 04/03/18 06:30 INR, PTT INR 1.50 (0.83-1.09) H 04/03/18 06:30 Problem List - Problems (1) Demand ischemia Code(s): I24.8 - OTHER FORMS OF ACUTE ISCHEMIC HEART DISEASE (2) Atrial flutter Code(s): I48.92 - UNSPECIFIED ATRIAL FLUTTER Qualifiers: Atrial flutter type: atypical Qualified Code(s): I48.4 - Atypical atrial flutter (3) S/P CABG (coronary artery bypass graft) Code(s): Z95.1 - PRESENCE OF AORTOCORONARY BYPASS GRAFT (4) History of endovascular stent graft for abdominal aortic aneurysm (AAA) Code(s): Z95.828 - PRESENCE OF OTHER VASCULAR IMPLANTS AND GRAFTS (5) Focal seizures Code(s): R56.9 - UNSPECIFIED CONVULSIONS (6) History of craniotomy Code(s): Z98.890 - OTHER SPECIFIED POSTPROCEDURAL STATES (7) Pneumonia Code(s): J18.9 - PNEUMONIA, UNSPECIFIED ORGANISM Qualifiers: Pneumonia type: aspiration pneumonia (8) MALINDA (acute kidney injury) Code(s): N17.9 - ACUTE KIDNEY FAILURE, UNSPECIFIED (9) Aneurysm of infrarenal abdominal aorta Code(s): I71.4 - ABDOMINAL AORTIC ANEURYSM, WITHOUT RUPTURE (10) HTN (hypertension) Code(s): I10 - ESSENTIAL (PRIMARY) HYPERTENSION Qualifiers: Hypertension type: essential hypertension Qualified Code(s): I10 - Essential (primary) hypertension (11) Hypothyroid Code(s): E03.9 - HYPOTHYROIDISM, UNSPECIFIED Qualifiers: Hypothyroidism type: other Qualified Code(s): E03.8 - Other specified hypothyroidism (12) Subdural hemorrhage Code(s): I62.00 - NONTRAUMATIC SUBDURAL HEMORRHAGE, UNSPECIFIED (13) Hyperlipidemia Code(s): E78.5 - HYPERLIPIDEMIA, UNSPECIFIED Qualifiers: Hyperlipidemia type: pure hypercholesterolemia Qualified Code(s): E78.00 - Pure hypercholesterolemia, unspecified; E78.0 - Pure hypercholesterolemia (14) Hypokalemia Code(s): E87.6 - HYPOKALEMIA Assessment/Plan Mild cLVH, normal LVEF 65%, normal RV size and fxn, mild LAE, mild MR , AR and mod TR 1. Post acute Respiratory Failure referable to probable aspiration pneumonia 2. Paroxysmal Atypical atrial flutter -> NSR [id number] score of 5 currently on no A/C related to subdural hematoma 3. CAD post CABG angina pectoris demand ischemic injury 4. Diastolic LV dysfunction with class 0-I NYHA classification LV failure, compensated/euvolemic 5. Acute on Chronic Subdural Hematoma post Benjamin Hole/Evacuation of Hematoma and chronic altered sensorium 6. Seizure disorder 7. HTN 8. Hypercholesterolemia 9. AAA post EVAR 10. Hypothyroidism 11. Acute on chronic kidney Injury improved 12. Anemia PLAN: 1. Continue Lopressor 25 bid, Norvasc 5 qd, Lipitor 10 qhs, losartan 50 qd as renal function stabilized 2. Defer anticoagulation for atrial flutter with [id number] score of 5 due to subdural hematoma 3. Antibiotic course per primary team 4. Continue anti-epileptics and repeat EEG per neuro service 5. Taper FiO2 to keep SpO2 >90%, complete abx course 6. Enteral feeds via PEG tube when ready 7. Mechanical DVT and GI prophylaxis
--- NOTE | 2018-04-03 10:44 | PN ---
Progress Note (short form) - Note Progress Note: Progress Note (short form) - Note Progress Note: awake, does not follow me staring facial twitching s/p peg placement 2 Vital Signs - 24 hr 04/02/18 04/02/18 04/02/18 13:59 15:46 21:00 Temperature 98.2 F Pulse Rate 76 Respiratory 20 22 Rate Blood Pressure 140/63 O2 Sat by Pulse 94 L 100 Oximetry (%) 04/02/18 04/03/18 04/03/18 22:00 02:00 06:00 Temperature 98.5 F 98.5 F 98.2 F Pulse Rate 74 73 80 Respiratory 22 19 18 Rate Blood Pressure 172/72 149/113 161/86 O2 Sat by Pulse 100 Oximetry (%) 04/03/18 04/03/18 04/03/18 08:45 09:00 09:15 Temperature 98.7 F Pulse Rate 81 70 75 Respiratory 20 17 14 Rate Blood Pressure 177/75 152/71 152/72 O2 Sat by Pulse 97 95 98 Oximetry (%) 04/03/18 09:24 Temperature 98.2 F Pulse Rate 70 Respiratory 18 Rate Blood Pressure 158/72 O2 Sat by Pulse 100 Oximetry (%) Current Medications Generic Name Dose Route Start Last Admin Trade Name Freq PRN Reason Stop Dose Admin Acetaminophen 1,000 mg 03/29/18 15:41 03/29/18 22:29 Ofirmev Injection - IVPB 1,000 mg Q6H PRN Administration PAIN LEVEL 6-10 Amlodipine Besylate 5 mg 03/30/18 10:00 04/02/18 09:42 Norvasc - PO 5 mg DAILY [facility] Administration Atorvastatin Calcium 10 mg 03/29/18 22:00 04/02/18 22:26 Lipitor - NGT 10 mg HS [facility] Administration Brimonidine Tartrate 1 drop 03/30/18 10:00 04/03/18 10:09 Alphagan 0.2% - OD 1 drop DAILY [facility] Administration Ceftriaxone Sodium 1 gm/ 100 mls @ 200 mls/hr 03/30/18 10:00 04/03/18 10:09 Dextrose IVPB 200 mls/hr DAILY [facility] Administration Protocol Levetiracetam 1,000 mg 03/29/18 22:00 04/03/18 11:00 Keppra Injection - IVPB 1,000 mg BID [facility] Administration Levothyroxine Sodium 25 mcg 03/30/18 07:00 04/03/18 06:28 Synthroid Injection - IVPUSH 25 mcg DAILY@0700 [facility] Administration Losartan Potassium 50 mg 03/30/18 10:00 04/02/18 09:42 Cozaar - PO 50 mg DAILY [facility] Administration Metoprolol Tartrate 25 mg 03/29/18 22:00 04/02/18 22:26 Lopressor - NGT 25 mg BID [facility] Administration Pantoprazole Sodium 40 mg 03/30/18 10:00 04/03/18 10:09 Protonix Iv IVPUSH 40 mg DAILY [facility] Administration Phenytoin Sodium 100 mg 03/30/18 14:00 04/03/18 05:20 Dilantin Injection - IVPB 100 mg TID [facility] Administration Senna 8.8 mg 03/29/18 22:00 04/02/18 22:26 Senna Oral Solution - PO 8.8 ml HS [facility] Administration Timolol Maleate 1 drop 03/30/18 10:00 04/03/18 10:09 Timoptic 0.5% OD 1 drop DAILY [facility] Administration Laboratory Results - last 24 hr 04/03/18 04/03/18 04/03/18 06:30 06:30 06:30 WBC 8.3 RBC 3.59 L Hgb 10.3 L Hct 30.4 L MCV 84.7 MCH 28.6 MCHC 33.7 RDW 13.7 Plt Count 327 MPV 6.5 L Absolute Neuts (auto) 4.7 Neutrophils % 57.4 Lymphocytes % 17.5 Monocytes % 12.5 H Eosinophils % 12.2 H Basophils % 0.4 Nucleated RBC % 0 PT with INR 17.00 H INR 1.50 H Sodium 137 Potassium 3.6 Chloride 98 Carbon Dioxide 27 Anion Gap 12 BUN 21 H Creatinine 1.1 Creat Clearance w eGFR > 60 Random Glucose 95 D Calcium 8.7 Total Bilirubin 0.3 AST 114 H D ALT 78 D Alkaline Phosphatase 119 H Total Protein 5.8 L Albumin 2.5 L PHYSICAL EXAM awake--do not follow commands. cvs-s1s2 lungs-bilateral breath sounds--decreased abd-soft,nt,bs + ,peg+ LE- no edema. A/P same continue present care abx monitor neuro following s/p peg start peg feedings per GI poor prognosis Problem List - Problems (1) HTN (hypertension) Code(s): I10 - ESSENTIAL (PRIMARY) HYPERTENSION Qualifiers: Hypertension type: essential hypertension Qualified Code(s): I10 - Essential (primary) hypertension (2) Hypothyroid Code(s): E03.9 - HYPOTHYROIDISM, UNSPECIFIED Qualifiers: Hypothyroidism type: other Qualified Code(s): E03.8 - Other specified hypothyroidism (3) S/P craniotomy Code(s): Z98.890 - OTHER SPECIFIED POSTPROCEDURAL STATES (4) Subdural hemorrhage Code(s): I62.00 - NONTRAUMATIC SUBDURAL HEMORRHAGE, UNSPECIFIED (5) Hypokalemia Code(s): E87.6 - HYPOKALEMIA
[2018-04-03] MEDS: levETIRAcetam 500 MG/5 ML INJECTION VIAL IVPB SCH ×2 (11:00→22:45)
[2018-04-03] MEDS ORDERED: PHYTONADIONE 10 MG/1 ML AMP SQ ONE (11:15)
[2018-04-03] MEDS: amLODIPine BESYLATE 5 MG TABLET (FP) PO SCH (11:27)
[2018-04-03] MEDS: METOPROLOL TARTRATE 25 MG TABLET (FP) NGT SCH ×2 (11:27→22:45)
[2018-04-03] MEDS: LOSARTAN POTASSIUM 50 MG TABLET (FP) PO SCH (11:27)
--- NOTE | 2018-04-03 13:05 | PN ---
Progress Note, Physician History of Present Illness: pulmonary more responsive today,-resp distress - Current Medication List Current Medications: Active Medications Acetaminophen (Ofirmev Injection -) 1,000 mg IVPB Q6H PRN PRN Reason: PAIN LEVEL 6-10 Last Admin: 03/29/18 22:29 Dose: 1,000 mg Amlodipine Besylate (Norvasc -) 5 mg PO DAILY [facility] Last Admin: 04/03/18 11:27 Dose: 5 mg Atorvastatin Calcium (Lipitor -) 10 mg NGT HS [facility] Last Admin: 04/02/18 22:26 Dose: 10 mg Brimonidine Tartrate (Alphagan 0.2% -) 1 drop OD DAILY [facility] Last Admin: 04/03/18 10:09 Dose: 1 drop Ceftriaxone Sodium 1 gm/ (Dextrose) 100 mls @ 200 mls/hr IVPB DAILY [facility]; Protocol Last Admin: 04/03/18 10:09 Dose: 200 mls/hr Levetiracetam (Keppra Injection -) 1,000 mg IVPB BID [facility] Last Admin: 04/03/18 11:00 Dose: 1,000 mg Levothyroxine Sodium (Synthroid Injection -) 25 mcg IVPUSH DAILY@0700 [facility] Last Admin: 04/03/18 06:28 Dose: 25 mcg Losartan Potassium (Cozaar -) 50 mg PO DAILY [facility] Last Admin: 04/03/18 11:27 Dose: 50 mg Metoprolol Tartrate (Lopressor -) 25 mg NGT BID [facility] Last Admin: 04/03/18 11:27 Dose: 25 mg Pantoprazole Sodium (Protonix Iv) 40 mg IVPUSH DAILY [facility] Last Admin: 04/03/18 10:09 Dose: 40 mg Phenytoin Sodium (Dilantin Injection -) 100 mg IVPB TID [facility] Last Admin: 04/03/18 05:20 Dose: 100 mg Senna (Senna Oral Solution -) 8.8 mg PO HS [facility] Last Admin: 04/02/18 22:26 Dose: 8.8 ml Timolol Maleate (Timoptic 0.5%) 1 drop OD DAILY [facility] Last Admin: 04/03/18 10:09 Dose: 1 drop - Objective Vital Signs: Vital Signs Temperature 98.2 F 04/03/18 09:24 Pulse Rate 70 04/03/18 09:24 Respiratory Rate 18 04/03/18 09:24 Blood Pressure 158/72 04/03/18 09:24 O2 Sat by Pulse Oximetry (%) 100 04/03/18 09:24 Constitutional: Yes: Calm, Thin Eyes: Yes: WNL HENT: Yes: WNL Neck: Yes: WNL Cardiovascular: Yes: Pulse Irregular, S1, S2 Respiratory: Yes: Diminished Gastrointestinal: Yes: Normal Bowel Sounds, Soft Extremities: Yes: WNL Edema: No Labs: CBC, BMP 04/03/18 06:30 04/03/18 06:30 INR, PTT INR 1.50 (0.83-1.09) H 04/03/18 06:30 Problem List - Problems (1) Respiratory failure Code(s): J96.90 - RESPIRATORY FAILURE, UNSP, UNSP W HYPOXIA OR HYPERCAPNIA (2) History of craniotomy Code(s): Z98.890 - OTHER SPECIFIED POSTPROCEDURAL STATES (3) History of endovascular stent graft for abdominal aortic aneurysm (AAA) Code(s): Z95.828 - PRESENCE OF OTHER VASCULAR IMPLANTS AND GRAFTS (4) Pneumonia Code(s): J18.9 - PNEUMONIA, UNSPECIFIED ORGANISM Qualifiers: Pneumonia type: aspiration pneumonia (5) S/P CABG (coronary artery bypass graft) Code(s): Z95.1 - PRESENCE OF AORTOCORONARY BYPASS GRAFT (6) CAD (coronary artery disease) Code(s): I25.10 - ATHSCL HEART DISEASE OF [place] CORONARY ARTERY W/O ANG PCTRS Qualifiers: [place] vs. transplanted heart: [place] heart Associated angina: without angina (7) HTN (hypertension) Code(s): I10 - ESSENTIAL (PRIMARY) HYPERTENSION Qualifiers: Hypertension type: essential hypertension Qualified Code(s): I10 - Essential (primary) hypertension (8) Hypothyroid Code(s): E03.9 - HYPOTHYROIDISM, UNSPECIFIED Qualifiers: Hypothyroidism type: other Qualified Code(s): E03.8 - Other specified hypothyroidism (9) Afib Code(s): I48.91 - UNSPECIFIED ATRIAL FIBRILLATION (10) MALINDA (acute kidney injury) Code(s): N17.9 - ACUTE KIDNEY FAILURE, UNSPECIFIED (11) S/P craniotomy Code(s): Z98.890 - OTHER SPECIFIED POSTPROCEDURAL STATES (12) Subdural hemorrhage Code(s): I62.00 - NONTRAUMATIC SUBDURAL HEMORRHAGE, UNSPECIFIED Assessment/Plan A/P S/P Acute Respiratory Failure Pneumonia likely Aspiration Sepsis Acute on Chronic Subdural Hematoma s/p Benjamin Hole/Evacuation of Hematoma Seizures +Troponins likely Demand Ischemia Atrial Fibrillation Acute Kidney Injury HTN CKD Hypothyroidism - O2 to keep SpO2 >90% - continue antibiotics - rate control - defer anticoagulation due to subdural hematoma - monitor urine output, creatinine - continue antiepileptics - mechanical DVT prophylaxis DR GONSALES
--- NOTE | 2018-04-03 13:20 | PN ---
Progress Note, WELFARE ELIGIBILITY INTERVIEWER - Note Progress Note: PEG inserted. Lethargic.Non verbal. Selected Entries 04/03/18 04/03/18 04/03/18 02:00 06:00 08:45 Supper NPO Temperature 98.5 F 98.2 F 98.7 F 04/03/18 09:24 Supper Temperature 98.2 F Laboratory Tests 04/03/18 06:30 WBC 8.3 No further f/u indicated at this time.
[2018-04-03] MEDS: ATORVASTATIN CA 10 MG TABLET (FP) NGT SCH (22:45)
[2018-04-03] MEDS: SENNOSIDES 8.8 MG/5 ML BULK BOTTLE PO SCH (22:47)
[2018-04-04] MEDS ORDERED: PT OWN MED DRAWER 7, Y5N ONE ×6 (06:30→21:10)
[2018-04-04] MEDS: LEVOTHYROXINE SODIUM 100 MCG VIAL IVPUSH SCH (06:38)
[2018-04-04] MEDS: PHENYTOIN SODIUM 100 MG/2 ML VIAL IVPB SCH ×3 (06:46→21:12)
[2018-04-04 07:31] LABS: BASO % 0.5 % (0-2.0); EOS % 15.4 % (0-4.5); HEMATOCRIT 27.3 % (35.4-49); HEMOGLOBIN 9.4 GM/dL (11.7-16.9); LYMPH % 16.4 % (8-40); MCH 29.1 pg (25.7-33.7); MCHC 34.6 g/dl (32.0-35.9); MEAN CELL VOLUME 84.1 fl (80-96); MEAN PLT VOLUME 6.5 fl (7.5-11.1); MONO % 14.5 % (3.8-10.2); NEUT % 53.2 % (42.8-82.8); PLATELET COUNT 317 K/MM3 (134-434); RBC 3.25 M/mm3 (4.00-5.60); RDW 13.6 % (11.9-15.9); WHITE BLOOD COUNT 8.2 K/mm3 (4.0-10.0)
[2018-04-04] MEDS ORDERED: cefTRIAXone SODIUM 1 GM VIAL ONE (09:21)
[2018-04-04] MEDS ORDERED: DEXTROSE 5%-WATER 100 ML IVPB ONE (09:22)
[2018-04-04] MEDS: amLODIPine BESYLATE 5 MG TABLET (FP) PO SCH (09:26)
[2018-04-04] MEDS: PANTOPRAZOLE SODIUM 40 MG VIAL IVPUSH SCH (09:26)
[2018-04-04] MEDS: CEFTRIAXONE 1 GM in DEXTROSE 5%-WATER 100 ML IVPB SCH (09:26)
[2018-04-04] MEDS: METOPROLOL TARTRATE 25 MG TABLET (FP) NGT SCH ×2 (09:26→21:12)
[2018-04-04] MEDS: LOSARTAN POTASSIUM 50 MG TABLET (FP) PO SCH (09:26)
[2018-04-04] MEDS: BRIMONIDINE TARTRATE 0.2% OPHTHALMIC 5 ML BOTTLE OD SCH (09:27)
[2018-04-04] MEDS: TIMOLOL 0.5% OPHTHALMIC SOL 5 ML BOTTLE OD SCH (09:27)
--- NOTE | 2018-04-04 10:30 | PN ---
Progress Note, Physician History of Present Illness: Lethargic and poorly responsive, nonverbal and remains in SR. s/p PEG. - Current Medication List Current Medications: Active Medications Acetaminophen (Ofirmev Injection -) 1,000 mg IVPB Q6H PRN PRN Reason: PAIN LEVEL 6-10 Last Admin: 03/29/18 22:29 Dose: 1,000 mg Amlodipine Besylate (Norvasc -) 5 mg PO DAILY [facility] Last Admin: 04/04/18 09:26 Dose: 5 mg Atorvastatin Calcium (Lipitor -) 10 mg NGT HS [facility] Last Admin: 04/03/18 22:45 Dose: 10 mg Brimonidine Tartrate (Alphagan 0.2% -) 1 drop OD DAILY [facility] Last Admin: 04/04/18 09:27 Dose: 1 drop Ceftriaxone Sodium 1 gm/ (Dextrose) 100 mls @ 200 mls/hr IVPB DAILY [facility]; Protocol Last Admin: 04/04/18 09:26 Dose: 200 mls/hr Levetiracetam (Keppra Injection -) 1,000 mg IVPB BID [facility] Last Admin: 04/03/18 22:45 Dose: 1,000 mg Levothyroxine Sodium (Synthroid Injection -) 25 mcg IVPUSH DAILY@0700 [facility] Last Admin: 04/04/18 06:38 Dose: 25 mcg Losartan Potassium (Cozaar -) 50 mg PO DAILY [facility] Last Admin: 04/04/18 09:26 Dose: 50 mg Metoprolol Tartrate (Lopressor -) 25 mg NGT BID [facility] Last Admin: 04/04/18 09:26 Dose: 25 mg Pantoprazole Sodium (Protonix Iv) 40 mg IVPUSH DAILY [facility] Last Admin: 04/04/18 09:26 Dose: 40 mg Phenytoin Sodium (Dilantin Injection -) 100 mg IVPB TID [facility] Last Admin: 04/04/18 06:46 Dose: 100 mg Senna (Senna Oral Solution -) 8.8 mg PO [facility] Last Admin: 04/03/18 22:47 Dose: 5 ml Timolol Maleate (Timoptic 0.5%) 1 drop OD DAILY [facility] Last Admin: 04/04/18 09:27 Dose: 1 drop - Objective Vital Signs: Vital Signs Temperature 98.2 F 04/04/18 06:00 Pulse Rate 81 04/04/18 06:00 Respiratory Rate 19 09/07/18 06:00 Blood Pressure 162/74 04/04/18 06:00 O2 Sat by Pulse Oximetry (%) 98 04/04/18 00:00 Constitutional: Yes: No Distress, Calm, Thin Neck: Yes: Supple Cardiovascular: Yes: Regular Rate and Rhythm Respiratory: Yes: Regular, Diminished, On Nasal O2 Gastrointestinal: Yes: Normal Bowel Sounds, Soft, Other (PEG in place) Edema: No Labs: CBC, BMP 04/04/18 06:00 04/03/18 06:30 INR, PTT INR 1.50 (0.83-1.09) H 04/03/18 06:30 - ....Imaging Chest X-ray: Report Reviewed (Right base ATX) EKG: Report Reviewed (Tele: NSR) Problem List - Problems (1) Demand ischemia Code(s): I24.8 - OTHER FORMS OF ACUTE ISCHEMIC HEART DISEASE (2) Atrial flutter Code(s): I48.92 - UNSPECIFIED ATRIAL FLUTTER Qualifiers: Atrial flutter type: atypical Qualified Code(s): I48.4 - Atypical atrial flutter (3) S/P CABG (coronary artery bypass graft) Code(s): Z95.1 - PRESENCE OF AORTOCORONARY BYPASS GRAFT (4) History of endovascular stent graft for abdominal aortic aneurysm (AAA) Code(s): Z95.828 - PRESENCE OF OTHER VASCULAR IMPLANTS AND GRAFTS (5) Focal seizures Code(s): R56.9 - UNSPECIFIED CONVULSIONS (6) History of craniotomy Code(s): Z98.890 - OTHER SPECIFIED POSTPROCEDURAL STATES (7) Pneumonia Code(s): J18.9 - PNEUMONIA, UNSPECIFIED ORGANISM Qualifiers: Pneumonia type: aspiration pneumonia (8) MALINDA (acute kidney injury) Code(s): N17.9 - ACUTE KIDNEY FAILURE, UNSPECIFIED (9) Aneurysm of infrarenal abdominal aorta Code(s): I71.4 - ABDOMINAL AORTIC ANEURYSM, WITHOUT RUPTURE (10) HTN (hypertension) Code(s): I10 - ESSENTIAL (PRIMARY) HYPERTENSION Qualifiers: Hypertension type: essential hypertension Qualified Code(s): I10 - Essential (primary) hypertension (11) Hypothyroid Code(s): E03.9 - HYPOTHYROIDISM, UNSPECIFIED Qualifiers: Hypothyroidism type: other Qualified Code(s): E03.8 - Other specified hypothyroidism (12) Subdural hemorrhage Code(s): I62.00 - NONTRAUMATIC SUBDURAL HEMORRHAGE, UNSPECIFIED (13) Hyperlipidemia Code(s): E78.5 - HYPERLIPIDEMIA, UNSPECIFIED Qualifiers: Hyperlipidemia type: pure hypercholesterolemia Qualified Code(s): E78.00 - Pure hypercholesterolemia, unspecified; E78.0 - Pure hypercholesterolemia (14) Hypokalemia Code(s): E87.6 - HYPOKALEMIA Assessment/Plan Mild cLVH, normal LVEF 65%, normal RV size and fxn, mild LAE, mild MR , AR and mod TR 1. Post acute Respiratory Failure referable to probable aspiration pneumonia 2. Paroxysmal Atypical atrial flutter -> NSR [id number] score of 5 currently on no A/C related to subdural hematoma 3. CAD post CABG angina pectoris demand ischemic injury 4. Diastolic LV dysfunction with class 0-I NYHA classification LV failure, compensated/euvolemic 5. Acute on Chronic Subdural Hematoma post [place] Hole/Evacuation of Hematoma and chronic altered sensorium 6. Seizure disorder 7. HTN 8. Hypercholesterolemia 9. AAA post EVAR 10. Hypothyroidism 11. Acute on chronic kidney Injury improved 12. Anemia PLAN: 1. Continue Lopressor 25 bid, Norvasc 5 qd, Lipitor 10 qhs, losartan 50 qd as renal function stabilized 2. Defer anticoagulation for atrial flutter with [id number] score of 5 due to subdural hematoma 3. Antibiotic course per primary team 4. Continue anti-epileptics and repeat EEG per neuro service 5. Taper FiO2 to keep SpO2 >90%, complete abx course 6. Enteral feeds via PEG tube when ready 7. Mechanical DVT and GI prophylaxis
[2018-04-04] MEDS: levETIRAcetam 500 MG/5 ML INJECTION VIAL IVPB SCH (10:55)
--- NOTE | 2018-04-04 11:46 | PN ---
Progress Note (short form) - Note Progress Note: pt seen/ examined . chart reviewed condition same peg placed nurse reports had seizure like activity earlier afebrile Vital Signs Temp 98.2 F 04/04/18 06:00 Pulse 81 04/04/18 06:00 Resp 19 04/04/18 06:00 BP 162/74 04/04/18 06:00 Pulse Ox 98 04/04/18 00:00 Intake & Output 04/03/18 04/03/18 04/04/18 11:59 23:59 11:59 Intake Total 640 300 100 Balance 640 300 100 Intake: IVPB 300 200 100 Tube Feeding 290 Tube Irrigant 50 100 Other: Voiding Method Incontinent Incontinent Diaper # Unmeasured Voids Void 3 1 2 Bowel Movement Yes No # Bowel Movements 1 Active Medications Acetaminophen (Ofirmev Injection -) 1,000 mg IVPB Q6H PRN PRN Reason: PAIN LEVEL 6-10 Last Admin: 03/29/18 22:29 Dose: 1,000 mg Amlodipine Besylate (Norvasc -) 5 mg PO DAILY [facility] Last Admin: 04/04/18 09:26 Dose: 5 mg Atorvastatin Calcium (Lipitor -) 10 mg NGT HS [facility] Last Admin: 04/03/18 22:45 Dose: 10 mg Brimonidine Tartrate (Alphagan 0.2% -) 1 drop OD DAILY [facility] Last Admin: 04/04/18 09:27 Dose: 1 drop Ceftriaxone Sodium 1 gm/ (Dextrose) 100 mls @ 200 mls/hr IVPB DAILY [facility]; Protocol Last Admin: 04/04/18 09:26 Dose: 200 mls/hr Levetiracetam (Keppra Injection -) 1,000 mg IVPB BID [facility] Last Admin: 04/04/18 10:55 Dose: 1,000 mg Levothyroxine Sodium (Synthroid Injection -) 25 mcg IVPUSH DAILY@0700 [facility] Last Admin: 04/04/18 06:38 Dose: 25 mcg Losartan Potassium (Cozaar -) 50 mg PO DAILY [facility] Last Admin: 04/04/18 09:26 Dose: 50 mg Metoprolol Tartrate (Lopressor -) 25 mg NGT BID [facility] Last Admin: 04/04/18 09:26 Dose: 25 mg Pantoprazole Sodium (Protonix Iv) 40 mg IVPUSH DAILY [facility] Last Admin: 04/04/18 09:26 Dose: 40 mg Phenytoin Sodium (Dilantin Injection -) 100 mg IVPB TID [facility] Last Admin: 04/04/18 06:46 Dose: 100 mg Senna (Senna Oral Solution -) 8.8 mg PO HS [facility] Last Admin: 04/03/18 22:47 Dose: 5 ml Timolol Maleate (Timoptic 0.5%) 1 drop OD DAILY [facility] Last Admin: 04/04/18 09:27 Dose: 1 drop CBC, BMP 04/04/18 06:00 04/03/18 06:30 PHYSICAL EXAM awake--do not follow commands. cvs-s1s2 lungs-bilateral breath sounds--decreased abd-soft,nt,bs + ,peg+ LE- no edema. A/P same continue present care abx-- d/c ? i/d to follow s/p peg increase keppra d/c planning. poor prognosis . discussed with nursing staff Problem List - Problems (1) HTN (hypertension) Code(s): I10 - ESSENTIAL (PRIMARY) HYPERTENSION Qualifiers: Hypertension type: essential hypertension Qualified Code(s): I10 - Essential (primary) hypertension (2) Hypothyroid Code(s): E03.9 - HYPOTHYROIDISM, UNSPECIFIED Qualifiers: Hypothyroidism type: other Qualified Code(s): E03.8 - Other specified hypothyroidism (3) S/P craniotomy Code(s): Z98.890 - OTHER SPECIFIED POSTPROCEDURAL STATES (4) Subdural hemorrhage Code(s): I62.00 - NONTRAUMATIC SUBDURAL HEMORRHAGE, UNSPECIFIED (5) Hypokalemia Code(s): E87.6 - HYPOKALEMIA
--- NOTE | 2018-04-04 12:43 | PN ---
Progress Note (short form) - Note Progress Note: PULMONARY CHART REVIEWED PATIENT EXAMINED NO OVERALL CHANGE IN CLINICAL EXAM LABS/MEDS/NOTES/IMAGES REVIEWED S/P Acute Respiratory Failure Pneumonia likely Aspiration Sepsis Acute on Chronic Subdural Hematoma s/p Benjamin Hole/Evacuation of Hematoma Seizures +Troponins likely Demand Ischemia Atrial Fibrillation Acute Kidney Injury HTN CKD Hypothyroidism - O2 to keep SpO2 >90% - continue antibiotics - rate control - defer anticoagulation due to subdural hematoma - monitor urine output, creatinine - replete lytes - continue antiepileptics per neuro - mechanical DVT prophylaxis Asha SANTOS MD
--- NOTE | 2018-04-04 12:46 | PN ---
Progress Note (short form) - Note Progress Note: Clinically the same. No events overnight. G-tube intact. Abdomen soft. Afebrile with normal CBC. Nutrition evaluation and recommendations noted. Please follow their recommendations. Aspiration precautions. Recall GI as needed. Problem List - Problems (1) Afib Code(s): I48.91 - UNSPECIFIED ATRIAL FIBRILLATION (2) Cerebrovascular accident (CVA) Code(s): I63.9 - CEREBRAL INFARCTION, UNSPECIFIED (3) Demand ischemia Code(s): I24.8 - OTHER FORMS OF ACUTE ISCHEMIC HEART DISEASE (4) Focal seizures Code(s): R56.9 - UNSPECIFIED CONVULSIONS (5) History of craniotomy Code(s): Z98.890 - OTHER SPECIFIED POSTPROCEDURAL STATES (6) History of endovascular stent graft for abdominal aortic aneurysm (AAA) Code(s): Z95.828 - PRESENCE OF OTHER VASCULAR IMPLANTS AND GRAFTS (7) Hyperlipidemia Code(s): E78.5 - HYPERLIPIDEMIA, UNSPECIFIED Qualifiers: Qualified Code(s): E78.00 - Pure hypercholesterolemia, unspecified; E78.0 - Pure hypercholesterolemia (8) Hypokalemia Code(s): E87.6 - HYPOKALEMIA (9) Pneumonia Code(s): J18.9 - PNEUMONIA, UNSPECIFIED ORGANISM (10) Respiratory failure Code(s): J96.90 - RESPIRATORY FAILURE, UNSP, UNSP W HYPOXIA OR HYPERCAPNIA (11) S/P CABG (coronary artery bypass graft) Code(s): Z95.1 - PRESENCE OF AORTOCORONARY BYPASS GRAFT (12) MALINDA (acute kidney injury) Code(s): N17.9 - ACUTE KIDNEY FAILURE, UNSPECIFIED (13) Acute renal insufficiency Code(s): N28.9 - DISORDER OF KIDNEY AND URETER, UNSPECIFIED
--- NOTE | 2018-04-04 17:13 | PN ---
Progress Note (short form) - Note Progress Note: 87 year old male had seizure after subdural hematoma evacuation .He initially came from [place] for mental status change. He has history of craniotomy and evacuation of subdural hematoma on February [address] Rad Wilson. Patient under went repeat craniotectomy and hematoma evacuation. SUBJECTIVE : he remains calm and no seizure activity identified. He had peg tube placement on april 03. His prognosis remains poor as he is not waking up Neurological Examinatoin He is remain comfortable, would open eye, non verbal and not following command opens eye spontaneously , not able to communicate and track objects no face twitching was seen pupils are small and left side there is eivdence of old surgery ? glaucoma withdraws to painful stimuli CT scan done on march 27 remain unchanged Assessment- 1. 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 Focal seizure secondary to subdural and history of craniotectomy twice , seizure controlled , continue dilantin and keppra for now, he is on max dose of keppra, if he have seizure, than low dose depakote could be a good choice. I would speak to his girlfriend about prognosis continue current dose of AED now continue supportive treatment Thanking you os much Jerardo Stokes MD
[2018-04-04] MEDS: levETIRAcetam 500 MG TABLET (FP) PO SCH (21:12)
[2018-04-04] MEDS: SENNOSIDES 8.8 MG/5 ML BULK BOTTLE PO SCH (21:12)
[2018-04-04] MEDS: ATORVASTATIN CA 10 MG TABLET (FP) NGT SCH (21:12)
[2018-04-05] MEDS ORDERED: PT OWN MED DRAWER 7, Y5N ONE ×5 (06:21→23:13)
[2018-04-05] MEDS: PHENYTOIN SODIUM 100 MG/2 ML VIAL IVPB SCH ×3 (06:37→22:00)
[2018-04-05] MEDS: LEVOTHYROXINE SODIUM 100 MCG VIAL IVPUSH SCH (06:37)
[2018-04-05] MEDS ORDERED: cefTRIAXone SODIUM 1 GM VIAL ONE (10:00)
[2018-04-05] MEDS ORDERED: DEXTROSE 5%-WATER 100 ML IVPB ONE (10:01)
[2018-04-05] MEDS: levETIRAcetam 500 MG TABLET (FP) PO SCH ×2 (10:03→22:00)
[2018-04-05] MEDS: PANTOPRAZOLE SODIUM 40 MG VIAL IVPUSH SCH (10:03)
[2018-04-05] MEDS: LOSARTAN POTASSIUM 50 MG TABLET (FP) PO SCH (10:03)
[2018-04-05] MEDS: METOPROLOL TARTRATE 25 MG TABLET (FP) NGT SCH ×2 (10:03→22:00)
[2018-04-05] MEDS: CEFTRIAXONE 1 GM in DEXTROSE 5%-WATER 100 ML IVPB SCH (10:03)
[2018-04-05] MEDS: amLODIPine BESYLATE 5 MG TABLET (FP) PO SCH (10:03)
[2018-04-05] MEDS: TIMOLOL 0.5% OPHTHALMIC SOL 5 ML BOTTLE OD SCH (10:04)
[2018-04-05] MEDS: BRIMONIDINE TARTRATE 0.2% OPHTHALMIC 5 ML BOTTLE OD SCH (10:04)
--- NOTE | 2018-04-05 11:40 | PN ---
Progress Note (short form) - Note Progress Note: Progress Note (short form) - Note Progress Note: awake, does not follow me staring no distress Vital Signs - 24 hr 04/04/18 04/04/18 04/04/18 18:31 21:00 22:00 Temperature 98.7 F 98.8 F Pulse Rate 71 77 Respiratory 20 18 Rate Blood Pressure 159/65 164/74 O2 Sat by Pulse 98 98 Oximetry (%) 04/05/18 04/05/18 04/05/18 02:00 06:00 09:00 Temperature 99.1 F 98.5 F Pulse Rate 70 74 Respiratory 20 20 20 Rate Blood Pressure 145/70 159/80 O2 Sat by Pulse 99 Oximetry (%) 04/05/18 04/05/18 04/05/18 10:00 11:55 14:00 Temperature 97.9 F 98.3 F Pulse Rate 73 84 Respiratory 20 20 Rate Blood Pressure 170/77 158/80 O2 Sat by Pulse 99 Oximetry (%) Current Medications Generic Name Dose Route Start Last Admin Trade Name Freq PRN Reason Stop Dose Admin Acetaminophen 1,000 mg 03/29/18 15:41 03/29/18 22:29 Ofirmev Injection - IVPB 1,000 mg Q6H PRN Administration PAIN LEVEL 6-10 Amlodipine Besylate 10 mg 04/05/18 11:40 Norvasc - PO DAILY KRISTY Atorvastatin Calcium 10 mg 03/29/18 22:00 04/04/18 21:12 Lipitor - NGT 10 mg HS KRISTY Administration Brimonidine Tartrate 1 drop 03/30/18 10:00 04/05/18 10:04 Alphagan 0.2% - OD 1 drop DAILY KRISTY Administration Ceftriaxone Sodium 1 gm/ 100 mls @ 200 mls/hr 03/30/18 10:00 04/05/18 10:03 Dextrose IVPB 200 mls/hr DAILY KRISTY Administration Protocol Levetiracetam 1,000 mg 04/04/18 22:00 04/05/18 10:03 Keppra - PO 1,000 mg BID KRISTY Administration Levothyroxine Sodium 25 mcg 03/30/18 07:00 04/05/18 06:37 Synthroid Injection - IVPUSH 25 mcg DAILY@0700 KRISTY Administration Losartan Potassium 50 mg 03/30/18 10:00 09/08/18 10:03 Cozaar - PO 50 mg DAILY KRISTY Administration Metoprolol Tartrate 25 mg 03/29/18 22:00 04/05/18 10:03 Lopressor - NGT 25 mg BID KRISTY Administration Pantoprazole Sodium 40 mg 03/30/18 10:00 04/05/18 10:03 Protonix Iv IVPUSH 40 mg DAILY KRISTY Administration Phenytoin Sodium 100 mg 03/30/18 14:00 04/05/18 14:03 Dilantin Injection - IVPB 100 mg TID KRISTY Administration Senna 8.8 mg 03/29/18 22:00 04/04/18 21:12 Senna Oral Solution - PO 5 ml HS KRISTY Administration Timolol Maleate 1 drop 03/30/18 10:00 04/05/18 10:04 Timoptic 0.5% OD 1 drop DAILY KRISTY Administration PHYSICAL EXAM awake--do not follow commands. cvs-s1s2 lungs-bilateral breath sounds--decreased abd-soft,nt,bs + ,peg+ LE- no edema. A/P same continue present care abx monitor neuro following s/p peg for MRI brain poor prognosis Problem List - Problems (1) HTN (hypertension) Code(s): I10 - ESSENTIAL (PRIMARY) HYPERTENSION Qualifiers: Hypertension type: essential hypertension Qualified Code(s): I10 - Essential (primary) hypertension (2) Hypothyroid Code(s): E03.9 - HYPOTHYROIDISM, UNSPECIFIED Qualifiers: Hypothyroidism type: other Qualified Code(s): E03.8 - Other specified hypothyroidism (3) S/P craniotomy Code(s): Z98.890 - OTHER SPECIFIED POSTPROCEDURAL STATES (4) Subdural hemorrhage Code(s): I62.00 - NONTRAUMATIC SUBDURAL HEMORRHAGE, UNSPECIFIED (5) Hypokalemia Code(s): E87.6 - HYPOKALEMIA
--- NOTE | 2018-04-05 11:51 | PN ---
Progress Note, Physician Chief Complaint: Events noted Not in distress History of Present Illness: Patient was seen and examined. Awake. Chart was reviewed - Current Medication List Current Medications: Active Medications Acetaminophen (Ofirmev Injection -) 1,000 mg IVPB Q6H PRN PRN Reason: PAIN LEVEL 6-10 Last Admin: 03/29/18 22:29 Dose: 1,000 mg Amlodipine Besylate (Norvasc -) 10 mg PO DAILY [facility] Atorvastatin Calcium (Lipitor -) 10 mg NGT HS [facility] Last Admin: 04/04/18 21:12 Dose: 10 mg Brimonidine Tartrate (Alphagan 0.2% -) 1 drop OD DAILY [facility] Last Admin: 04/05/18 10:04 Dose: 1 drop Ceftriaxone Sodium 1 gm/ (Dextrose) 100 mls @ 200 mls/hr IVPB DAILY [facility]; Protocol Last Admin: 04/05/18 10:03 Dose: 200 mls/hr Levetiracetam (Keppra -) 1,000 mg PO BID [facility] Last Admin: 04/05/18 10:03 Dose: 1,000 mg Levothyroxine Sodium (Synthroid Injection -) 25 mcg IVPUSH DAILY@0700 [facility] Last Admin: 04/05/18 06:37 Dose: 25 mcg Losartan Potassium (Cozaar -) 50 mg PO DAILY [facility] Last Admin: 04/05/18 10:03 Dose: 50 mg Metoprolol Tartrate (Lopressor -) 25 mg NGT BID [facility] Last Admin: 04/05/18 10:03 Dose: 25 mg Pantoprazole Sodium (Protonix Iv) 40 mg IVPUSH DAILY [facility] Last Admin: 04/05/18 10:03 Dose: 40 mg Phenytoin Sodium (Dilantin Injection -) 100 mg IVPB TID [facility] Last Admin: 04/05/18 06:37 Dose: 100 mg Senna (Senna Oral Solution -) 8.8 mg PO HS [facility] Last Admin: 04/04/18 21:12 Dose: 5 ml Timolol Maleate (Timoptic 0.5%) 1 drop OD DAILY [facility] Last Admin: 04/05/18 10:04 Dose: 1 drop - Objective Vital Signs: Vital Signs Temperature 98.5 F 04/05/18 06:00 Pulse Rate 74 04/05/18 06:00 Respiratory Rate 20 04/05/18 09:00 Blood Pressure 159/80 04/05/18 06:00 O2 Sat by Pulse Oximetry (%) 99 04/05/18 09:00 Neck: Yes: Supple Cardiovascular: Yes: Regular Rate and Rhythm, S1, S2 Respiratory: Yes: Diminished Gastrointestinal: Yes: Normal Bowel Sounds, Soft. No: Tenderness Edema: No Labs: CBC, BMP 04/04/18 06:00 04/03/18 06:30 INR, PTT INR 1.50 (0.83-1.09) H 04/03/18 06:30 Problem List - Problems (1) Afib Code(s): I48.91 - UNSPECIFIED ATRIAL FIBRILLATION (2) Cerebrovascular accident (CVA) Code(s): I63.9 - CEREBRAL INFARCTION, UNSPECIFIED (3) Demand ischemia Code(s): I24.8 - OTHER FORMS OF ACUTE ISCHEMIC HEART DISEASE (4) Focal seizures Code(s): R56.9 - UNSPECIFIED CONVULSIONS (5) History of endovascular stent graft for abdominal aortic aneurysm (AAA) Code(s): Z95.828 - PRESENCE OF OTHER VASCULAR IMPLANTS AND GRAFTS (6) Hyperlipidemia Code(s): E78.5 - HYPERLIPIDEMIA, UNSPECIFIED Qualifiers: Hyperlipidemia type: pure hypercholesterolemia Qualified Code(s): E78.00 - Pure hypercholesterolemia, unspecified; E78.0 - Pure hypercholesterolemia (7) S/P CABG (coronary artery bypass graft) Code(s): Z95.1 - PRESENCE OF AORTOCORONARY BYPASS GRAFT (8) CAD (coronary artery disease) Code(s): I25.10 - ATHSCL HEART DISEASE OF [place] CORONARY ARTERY W/O ANG PCTRS Qualifiers: [place] vs. transplanted heart: [place] heart Associated angina: without angina (9) HTN (hypertension) Code(s): I10 - ESSENTIAL (PRIMARY) HYPERTENSION Qualifiers: Hypertension type: essential hypertension Qualified Code(s): I10 - Essential (primary) hypertension (10) Hypothyroid Code(s): E03.9 - HYPOTHYROIDISM, UNSPECIFIED Qualifiers: Hypothyroidism type: other Qualified Code(s): E03.8 - Other specified hypothyroidism (11) Subdural hemorrhage Code(s): I62.00 - NONTRAUMATIC SUBDURAL HEMORRHAGE, UNSPECIFIED Assessment/Plan 1. Post acute Respiratory Failure referable to probable aspiration pneumonia 2. Paroxysmal Atypical atrial flutter in NSR [id number] score of 5 currently on no A/C related to subdural hematoma 3. CAD post CABG angina pectoris demand ischemic injury 4. Diastolic LV dysfunction with class 0-I NYHA classification LV failure, compensated/euvolemic 5. Acute on Chronic Subdural Hematoma post [place] Hole/Evacuation of Hematoma and chronic altered sensorium 6. Seizure disorder 7. HTN 8. Hypercholesterolemia 9. AAA post EVAR 10. Hypothyroidism 11. Acute on chronic kidney Injury improved 12. Anemia PLAN: 1. Continue Lopressor, Norvasc, Lipitor and Losartan as tolerated 2. Patient not an ideal candidate for intermediate accountant anticoagulation due to to subdural hematoma 3. Antibiotic 4. Continue anti-epileptics and repeat EEG per neuro service 5. Taper FiO2 to keep SpO2 >90% 6. Enteral feeds via PEG tube 7. DVT and GI prophylaxis Supportive care Ernie Jamison MD
--- NOTE | 2018-04-05 11:52 | PN ---
Progress Note (short form) - Note Progress Note: 87 year old male had seizure after subdural hematoma evacuation .He initially came from [place] for mental status change. He has history of craniotomy and evacuation of subdural hematoma on February [address] Rad Wilson. Patient under went repeat craniotectomy and hematoma evacuation. SUBJECTIVE : he remains calm and no seizure activity identified. He had peg tube placement on april 03. His prognosis remains poor as he is not waking up Neurological Examinatoin He is remain comfortable, would open eye, non verbal and not following command opens eye spontaneously , not able to communicate and track objects no face twitching was seen pupils are small and left side there is eivdence of old surgery ? glaucoma withdraws to painful stimuli CT scan done on march 27 remain unchanged Assessment- 1. 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 Focal seizure secondary to subdural and history of craniotectomy twice , seizure controlled , continue dilantin and keppra for now, he is on max dose of keppra, if he have seizure, than low dose depakote could be a good choice. continue supportive treatment Thanking you os much Jerardo Stokes MD
[2018-04-05] MEDS: ATORVASTATIN CA 10 MG TABLET (FP) NGT SCH (22:00)
[2018-04-05] MEDS: SENNOSIDES 8.8 MG/5 ML BULK BOTTLE PO SCH (22:00)
[2018-04-06] MEDS: LEVOTHYROXINE SODIUM 100 MCG VIAL IVPUSH SCH (06:54)
[2018-04-06] MEDS: PHENYTOIN SODIUM 100 MG/2 ML VIAL IVPB SCH ×2 (06:54→14:32)
[2018-04-06] MEDS ORDERED: PT OWN MED DRAWER 7, Y5N ONE ×5 (09:09→21:35)
[2018-04-06] MEDS ORDERED: DEXTROSE 5%-WATER 100 ML IVPB ONE (09:10)
[2018-04-06] MEDS ORDERED: cefTRIAXone SODIUM 1 GM VIAL ONE (09:10)
[2018-04-06] MEDS: levETIRAcetam 500 MG TABLET (FP) PO SCH (09:15)
[2018-04-06] MEDS: LOSARTAN POTASSIUM 50 MG TABLET (FP) PO SCH (09:15)
[2018-04-06] MEDS: METOPROLOL TARTRATE 25 MG TABLET (FP) NGT SCH ×2 (09:15→21:37)
[2018-04-06] MEDS: amLODIPine BESYLATE 10 MG TABLET (FP) PO SCH (09:15)
[2018-04-06] MEDS: PANTOPRAZOLE SODIUM 40 MG VIAL IVPUSH SCH (09:15)
[2018-04-06] MEDS: TIMOLOL 0.5% OPHTHALMIC SOL 5 ML BOTTLE OD SCH (09:16)
[2018-04-06] MEDS: BRIMONIDINE TARTRATE 0.2% OPHTHALMIC 5 ML BOTTLE OD SCH (09:16)
--- NOTE | 2018-04-06 10:19 | PN ---
Progress Note, Physician Chief Complaint: Events noted Not in distress History of Present Illness: Patient was seen and examined. Awake. Chart was reviewed - Current Medication List Current Medications: Active Medications Acetaminophen (Ofirmev Injection -) 1,000 mg IVPB Q6H PRN PRN Reason: PAIN LEVEL 6-10 Last Admin: 03/29/18 22:29 Dose: 1,000 mg Amlodipine Besylate (Norvasc -) 10 mg PO DAILY [facility] Last Admin: 04/06/18 09:15 Dose: 10 mg Atorvastatin Calcium (Lipitor -) 10 mg NGT HS [facility] Last Admin: 04/05/18 22:00 Dose: 10 mg Brimonidine Tartrate (Alphagan 0.2% -) 1 drop OD DAILY [facility] Last Admin: 04/06/18 09:16 Dose: 1 drop Levetiracetam (Keppra -) 1,000 mg PO BID [facility] Last Admin: 04/06/18 09:15 Dose: 1,000 mg Levothyroxine Sodium (Synthroid Injection -) 25 mcg IVPUSH DAILY@0700 [facility] Last Admin: 04/06/18 06:54 Dose: 25 mcg Losartan Potassium (Cozaar -) 50 mg PO DAILY [facility] Last Admin: 04/06/18 09:15 Dose: 50 mg Metoprolol Tartrate (Lopressor -) 25 mg NGT BID [facility] Last Admin: 04/06/18 09:15 Dose: 25 mg Pantoprazole Sodium (Protonix Iv) 40 mg IVPUSH DAILY [facility] Last Admin: 04/06/18 09:15 Dose: 40 mg Phenytoin Sodium (Dilantin Injection -) 100 mg IVPB TID [facility] Last Admin: 04/06/18 06:54 Dose: 100 mg Senna (Senna Oral Solution -) 8.8 mg PO [facility] Last Admin: 04/05/18 22:00 Dose: 5 ml Timolol Maleate (Timoptic 0.5%) 1 drop OD DAILY [facility] Last Admin: 04/06/18 09:16 Dose: 1 drop - Objective Vital Signs: Vital Signs Temperature 98.6 F 04/06/18 02:00 Pulse Rate 86 04/06/18 02:00 Respiratory Rate 19 04/06/18 02:00 Blood Pressure 139/51 04/06/18 02:00 O2 Sat by Pulse Oximetry (%) 99 04/05/18 21:00 Neck: Yes: Supple Cardiovascular: Yes: Regular Rate and Rhythm, S1, S2 Respiratory: Yes: Diminished Gastrointestinal: Yes: Normal Bowel Sounds, Soft. No: Tenderness Edema: No Problem List - Problems (1) Afib Code(s): I48.91 - UNSPECIFIED ATRIAL FIBRILLATION (2) Cerebrovascular accident (CVA) Code(s): I63.9 - CEREBRAL INFARCTION, UNSPECIFIED (3) Demand ischemia Code(s): I24.8 - OTHER FORMS OF ACUTE ISCHEMIC HEART DISEASE (4) Focal seizures Code(s): R56.9 - UNSPECIFIED CONVULSIONS (5) History of endovascular stent graft for abdominal aortic aneurysm (AAA) Code(s): Z95.828 - PRESENCE OF OTHER VASCULAR IMPLANTS AND GRAFTS (6) Hyperlipidemia Code(s): E78.5 - HYPERLIPIDEMIA, UNSPECIFIED Qualifiers: Hyperlipidemia type: pure hypercholesterolemia Qualified Code(s): E78.00 - Pure hypercholesterolemia, unspecified; E78.0 - Pure hypercholesterolemia (7) S/P CABG (coronary artery bypass graft) Code(s): Z95.1 - PRESENCE OF AORTOCORONARY BYPASS GRAFT (8) CAD (coronary artery disease) Code(s): I25.10 - ATHSCL HEART DISEASE OF [place] CORONARY ARTERY W/O ANG PCTRS Qualifiers: [place] vs. transplanted heart: [place] heart Associated angina: without angina (9) HTN (hypertension) Code(s): I10 - ESSENTIAL (PRIMARY) HYPERTENSION Qualifiers: Hypertension type: essential hypertension Qualified Code(s): I10 - Essential (primary) hypertension (10) Hypothyroid Code(s): E03.9 - HYPOTHYROIDISM, UNSPECIFIED Qualifiers: Hypothyroidism type: other Qualified Code(s): E03.8 - Other specified hypothyroidism (11) Subdural hemorrhage Code(s): I62.00 - NONTRAUMATIC SUBDURAL HEMORRHAGE, UNSPECIFIED Assessment/Plan 1. Post acute Respiratory Failure referable to probable aspiration pneumonia 2. Paroxysmal Atypical atrial flutter in NSR [id number] score of 5 currently on no A/C related to subdural hematoma 3. CAD post CABG angina pectoris demand ischemic injury 4. Diastolic LV dysfunction with class 0-I NYHA classification LV failure, compensated/euvolemic 5. Acute on Chronic Subdural Hematoma post [place] Hole/Evacuation of Hematoma and chronic altered sensorium 6. Seizure disorder 7. HTN 8. Hypercholesterolemia 9. AAA post EVAR 10. Hypothyroidism 11. Acute on chronic kidney Injury improved 12. Anemia PLAN: 1. Continue Lopressor, Norvasc, Lipitor and Losartan as tolerated 2. 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 Completed antibiotics 4. Continue anti-epileptics and repeat EEG per neuro service. Neuro input noted. Brain MRI pending 5. Taper FiO2 to keep SpO2 >90% 6. Enteral feeds via PEG tube 7. DVT and GI prophylaxis Supportive care Ernie Jamison MD
--- NOTE | 2018-04-06 15:39 | PN ---
Progress Note (short form) - Note Progress Note: Progress Note (short form) - Note Progress Note: awake, moaning staring no distress Vital Signs - 24 hr 04/05/18 04/05/18 04/06/18 18:16 21:00 02:00 Temperature 98.3 F 98.6 F Pulse Rate 83 86 Respiratory 20 19 Rate Blood Pressure 145/83 139/51 O2 Sat by Pulse 99 Oximetry (%) 04/06/18 10:00 Temperature 98.4 F Pulse Rate 82 Respiratory 18 Rate Blood Pressure 134/62 O2 Sat by Pulse 98 Oximetry (%) Current Medications Generic Name Dose Route Start Last Admin Trade Name Freq PRN Reason Stop Dose Admin Acetaminophen 1,000 mg 03/29/18 15:41 03/29/18 22:29 Ofirmev Injection - IVPB 1,000 mg Q6H PRN Administration PAIN LEVEL 6-10 Amlodipine Besylate 10 mg 04/05/18 11:40 04/06/18 09:15 Norvasc - PO 10 mg DAILY KRISTY Administration Atorvastatin Calcium 10 mg 03/29/18 22:00 04/05/18 22:00 Lipitor - NGT 10 mg HS KRISTY Administration Brimonidine Tartrate 1 drop 03/30/18 10:00 04/06/18 09:16 Alphagan 0.2% - OD 1 drop DAILY KRISTY Administration Levetiracetam 1,000 mg 04/04/18 22:00 04/06/18 09:15 Keppra - PO 1,000 mg BID KRISTY Administration Levothyroxine Sodium 25 mcg 03/30/18 07:00 04/06/18 06:54 Synthroid Injection - IVPUSH 25 mcg DAILY@0700 KRISTY Administration Losartan Potassium 50 mg 03/30/18 10:00 04/06/18 09:15 Cozaar - PO 50 mg DAILY KRISTY Administration Metoprolol Tartrate 25 mg 03/29/18 22:00 04/06/18 09:15 Lopressor - NGT 25 mg BID KRISTY Administration Pantoprazole Sodium 40 mg 03/30/18 10:00 04/06/18 09:15 Protonix Iv IVPUSH 40 mg DAILY KRISTY Administration Phenytoin Sodium 100 mg 03/30/18 14:00 04/06/18 14:32 Dilantin Injection - IVPB 100 mg TID KRISTY Administration Senna 8.8 mg 03/29/18 22:00 04/05/18 22:00 Senna Oral Solution - PO 5 ml HS KRISTY Administration Timolol Maleate 1 drop 03/30/18 10:00 04/06/18 09:16 Timoptic 0.5% OD 1 drop DAILY KRISTY Administration PHYSICAL EXAM awake--do not follow commands. cvs-s1s2 lungs-bilateral breath sounds--decreased abd-soft,nt,bs + ,peg+ LE- no edema. A/P same continue present care abx-completed monitor neuro following s/p peg MRI brain done-- noted poor prognosis dc planning to [place] Problem List - Problems (1) HTN (hypertension) Code(s): I10 - ESSENTIAL (PRIMARY) HYPERTENSION Qualifiers: Hypertension type: essential hypertension Qualified Code(s): I10 - Essential (primary) hypertension (2) Hypothyroid Code(s): E03.9 - HYPOTHYROIDISM, UNSPECIFIED Qualifiers: Hypothyroidism type: other Qualified Code(s): E03.8 - Other specified hypothyroidism (3) S/P craniotomy Code(s): Z98.890 - OTHER SPECIFIED POSTPROCEDURAL STATES (4) Subdural hemorrhage Code(s): I62.00 - NONTRAUMATIC SUBDURAL HEMORRHAGE, UNSPECIFIED (5) Hypokalemia Code(s): E87.6 - HYPOKALEMIA
[2018-04-06] MEDS: PHENYTOIN 100 MG/4 ML U-D CUP PEG SCH (21:37)
[2018-04-06] MEDS: SENNOSIDES 8.8 MG/5 ML BULK BOTTLE PO SCH (21:37)
[2018-04-06] MEDS: levETIRAcetam 500 MG/5 ML ORAL SOLUTION (UNIT-DOSE CUPS) PEG SCH (21:37)
[2018-04-06] MEDS: ATORVASTATIN CA 10 MG TABLET (FP) NGT SCH (21:37)
[2018-04-06] MEDS ORDERED: PHENYTOIN 100 MG/4 ML U-D CUP PEG SCH (22:00)
[2018-04-07] MEDS ORDERED: PT OWN MED DRAWER 7, Y5N ONE ×3 (05:38→22:16)
[2018-04-07] MEDS: PHENYTOIN 100 MG/4 ML U-D CUP PEG SCH ×3 (05:40→21:20)
[2018-04-07] MEDS: LEVOTHYROXINE SODIUM 100 MCG VIAL IVPUSH SCH (06:00)
[2018-04-07] MEDS: amLODIPine BESYLATE 10 MG TABLET (FP) PO SCH (09:36)
[2018-04-07] MEDS: LOSARTAN POTASSIUM 50 MG TABLET (FP) PO SCH (09:36)
[2018-04-07] MEDS: METOPROLOL TARTRATE 25 MG TABLET (FP) NGT SCH (09:37)
[2018-04-07] MEDS: levETIRAcetam 500 MG/5 ML ORAL SOLUTION (UNIT-DOSE CUPS) PEG SCH ×2 (09:37→21:21)
[2018-04-07] MEDS: PANTOPRAZOLE SOD 40 MG SUSPENSION PACKET PEG SCH (09:37)
[2018-04-07] MEDS ORDERED: PANTOPRAZOLE 40 MG TABLET (FP) PO SCH (10:00)
--- NOTE | 2018-04-07 10:17 | PN ---
Progress Note, Physician History of Present Illness: Localizes to voice, nonverbal and remains in SR, tolerating enteral feeds. - Current Medication List Current Medications: Active Medications Acetaminophen (Ofirmev Injection -) 1,000 mg IVPB Q6H PRN PRN Reason: PAIN LEVEL 6-10 Last Admin: 03/29/18 22:29 Dose: 1,000 mg Amlodipine Besylate (Norvasc -) 10 mg PO DAILY [facility] Last Admin: 04/07/18 09:36 Dose: 10 mg Atorvastatin Calcium (Lipitor -) 10 mg NGT HS [facility] Last Admin: 04/06/18 21:37 Dose: 10 mg Brimonidine Tartrate (Alphagan 0.2% -) 1 drop OD DAILY [facility] Last Admin: 04/06/18 09:16 Dose: 1 drop Levetiracetam (Keppra Oral Solution -) 1,000 mg PEG BID [facility] Last Admin: 04/07/18 09:37 Dose: 1,000 mg Levothyroxine Sodium (Synthroid Injection -) 25 mcg IVPUSH DAILY@0700 [facility] Last Admin: 04/07/18 06:00 Dose: 25 mcg Losartan Potassium (Cozaar -) 50 mg PO DAILY [facility] Last Admin: 04/07/18 09:36 Dose: 50 mg Metoprolol Tartrate (Lopressor -) 25 mg NGT BID [facility] Last Admin: 04/07/18 09:37 Dose: 25 mg Pantoprazole Sodium (Protonix Packets For Oral Suspension -) 40 mg PEG DAILY [facility] Last Admin: 04/07/18 09:37 Dose: 40 mg Phenytoin Sodium (Dilantin Oral Suspension -) 100 mg PEG TID [facility] Last Admin: 04/07/18 05:40 Dose: 100 mg Senna (Senna Oral Solution -) 8.8 mg PO HS [facility] Last Admin: 04/06/18 21:37 Dose: 5 ml Timolol Maleate (Timoptic 0.5%) 1 drop OD DAILY [facility] Last Admin: 04/06/18 09:16 Dose: 1 drop - Objective Vital Signs: Vital Signs Temperature 98.4 F 04/07/18 06:00 Pulse Rate 79 04/07/18 06:00 Respiratory Rate 20 04/07/18 06:00 Blood Pressure 155/78 04/07/18 06:00 O2 Sat by Pulse Oximetry (%) 100 04/06/18 21:00 Constitutional: Yes: No Distress, Calm, Thin Neck: Yes: Supple Cardiovascular: Yes: Regular Rate and Rhythm Respiratory: Yes: Regular, Diminished Gastrointestinal: Yes: Normal Bowel Sounds, Soft, Other (PEG in place) Edema: No Labs: CBC, BMP 04/04/18 06:00 04/03/18 06:30 INR, PTT INR 1.50 (0.83-1.09) H 04/03/18 06:30 Problem List - Problems (1) Demand ischemia Code(s): I24.8 - OTHER FORMS OF ACUTE ISCHEMIC HEART DISEASE (2) Atrial flutter Code(s): I48.92 - UNSPECIFIED ATRIAL FLUTTER Qualifiers: Atrial flutter type: atypical Qualified Code(s): I48.4 - Atypical atrial flutter (3) S/P CABG (coronary artery bypass graft) Code(s): Z95.1 - PRESENCE OF AORTOCORONARY BYPASS GRAFT (4) History of endovascular stent graft for abdominal aortic aneurysm (AAA) Code(s): Z95.828 - PRESENCE OF OTHER VASCULAR IMPLANTS AND GRAFTS (5) Focal seizures Code(s): R56.9 - UNSPECIFIED CONVULSIONS (6) History of craniotomy Code(s): Z98.890 - OTHER SPECIFIED POSTPROCEDURAL STATES (7) Pneumonia Code(s): J18.9 - PNEUMONIA, UNSPECIFIED ORGANISM Qualifiers: Pneumonia type: aspiration pneumonia (8) MALINDA (acute kidney injury) Code(s): N17.9 - ACUTE KIDNEY FAILURE, UNSPECIFIED (9) Aneurysm of infrarenal abdominal aorta Code(s): I71.4 - ABDOMINAL AORTIC ANEURYSM, WITHOUT RUPTURE (10) HTN (hypertension) Code(s): I10 - ESSENTIAL (PRIMARY) HYPERTENSION Qualifiers: Hypertension type: essential hypertension Qualified Code(s): I10 - Essential (primary) hypertension (11) Hypothyroid Code(s): E03.9 - HYPOTHYROIDISM, UNSPECIFIED Qualifiers: Hypothyroidism type: other Qualified Code(s): E03.8 - Other specified hypothyroidism (12) Subdural hemorrhage Code(s): I62.00 - NONTRAUMATIC SUBDURAL HEMORRHAGE, UNSPECIFIED (13) Hyperlipidemia Code(s): E78.5 - HYPERLIPIDEMIA, UNSPECIFIED Qualifiers: Hyperlipidemia type: pure hypercholesterolemia Qualified Code(s): E78.00 - Pure hypercholesterolemia, unspecified; E78.0 - Pure hypercholesterolemia (14) Hypokalemia Code(s): E87.6 - HYPOKALEMIA Assessment/Plan Mild cLVH, normal LVEF 65%, normal RV size and fxn, mild LAE, mild MR , AR and mod TR 04/05/2018 Brain MRI: stable left SDH with midline shift 04/05/2018 EEGL Tempoparietal epiletptiform distrubance 1. Post acute Respiratory Failure referable to probable aspiration pneumonia 2. Paroxysmal Atypical atrial flutter in NSR [id number] score of 5 currently on no A/C related to subdural hematoma 3. CAD post CABG angina pectoris demand ischemic injury 4. Diastolic LV dysfunction with class 0-I NYHA classification LV failure, compensated/euvolemic 5. Acute on Chronic Subdural Hematoma post [place] Hole/Evacuation of Hematoma and chronic altered sensorium 6. Status epilepticus 7. HTN 8. Hypercholesterolemia 9. AAA post EVAR 10. Hypothyroidism 11. Acute on chronic kidney Injury improved 12. Anemia PLAN: 1. Continue Lopressor 25 bid, Norvasc 10 qd, Lipitor 10 qhs and Losartan 50 qd as tolerated 2. Patient not an ideal candidate for fpc anticoagulation due to to subdural hematoma 3. Completed empiric antibiotic course 4. Continue anti-epileptics titration per neuro 5. Taper FiO2 to keep SpO2 >90% 6. Enteral feeds via PEG tube 7. DVT and GI prophylaxis 8. D/c planning back to [facility]
[2018-04-07] MEDS ORDERED: METOPROLOL TARTRATE 50 MG TABLET (FP) NGT SCH (11:21)
--- NOTE | 2018-04-07 11:21 | PN ---
Progress Note (short form) - Note Progress Note: Pt seen/ examined chart reviewed awake/ comfortable dont communicate afebrile tolerating feeding Vital Signs Temp 98.4 F 04/07/18 06:00 Pulse 79 04/07/18 06:00 Resp 20 04/07/18 06:00 BP 155/78 04/07/18 06:00 Pulse Ox 100 04/06/18 21:00 Intake & Output 04/06/18 04/06/18 04/07/18 11:59 23:59 11:59 Intake Total 1060 400 Balance 1060 400 Intake: IVPB 100 Tube Feeding 540 225 Tube Irrigant 420 175 Other: Voiding Method Incontinent Incontinent Incontinent # Unmeasured Voids Void 2 2 Bowel Movement No Yes # Bowel Movements 2 Active Medications Acetaminophen (Ofirmev Injection -) 1,000 mg IVPB Q6H PRN PRN Reason: PAIN LEVEL 6-10 Last Admin: 03/29/18 22:29 Dose: 1,000 mg Amlodipine Besylate (Norvasc -) 10 mg PO DAILY [facility] Last Admin: 04/07/18 09:36 Dose: 10 mg Atorvastatin Calcium (Lipitor -) 10 mg NGT [facility] Last Admin: 04/06/18 21:37 Dose: 10 mg Brimonidine Tartrate (Alphagan 0.2% -) 1 drop OD DAILY [facility] Last Admin: 04/06/18 09:16 Dose: 1 drop Levetiracetam (Keppra Oral Solution -) 1,000 mg PEG BID [facility] Last Admin: 04/07/18 09:37 Dose: 1,000 mg Levothyroxine Sodium (Synthroid Injection -) 25 mcg IVPUSH DAILY@0700 [facility] Last Admin: 04/07/18 06:00 Dose: 25 mcg Losartan Potassium (Cozaar -) 50 mg PO DAILY [facility] Last Admin: 04/07/18 09:36 Dose: 50 mg Pantoprazole Sodium (Protonix Packets For Oral Suspension -) 40 mg PEG DAILY [facility] Last Admin: 04/07/18 09:37 Dose: 40 mg Phenytoin Sodium (Dilantin Oral Suspension -) 100 mg PEG TID [facility] Last Admin: 04/07/18 05:40 Dose: 100 mg Senna (Senna Oral Solution -) 8.8 mg PO [facility] Last Admin: 04/06/18 21:37 Dose: 5 ml Timolol Maleate (Timoptic 0.5%) 1 drop OD DAILY [facility] Last Admin: 04/06/18 09:16 Dose: 1 drop CBC, BMP 04/04/18 06:00 04/03/18 06:30 EEG-- NOTED PHYSICAL EXAM awake--comfortable cvs-s1s2 lungs-bilateral breath sounds--decreased abd-soft,nt,bs + ,peg+ LE- no edema. A/P stable s/p peg continue present care Discussed with Neurologist Dr. Street-- Requests to be seen by surgeon Before d /c discussed with nursing staff dc planning to [facility] in progress -- Anticipate later today -- After Neurosurgery f /u Will follow. Problem List - Problems (1) HTN (hypertension) Code(s): I10 - ESSENTIAL (PRIMARY) HYPERTENSION Qualifiers: Hypertension type: essential hypertension Qualified Code(s): I10 - Essential (primary) hypertension (2) Hypothyroid Code(s): E03.9 - HYPOTHYROIDISM, UNSPECIFIED Qualifiers: Hypothyroidism type: other Qualified Code(s): E03.8 - Other specified hypothyroidism (3) S/P craniotomy Code(s): Z98.890 - OTHER SPECIFIED POSTPROCEDURAL STATES (4) Subdural hemorrhage Code(s): I62.00 - NONTRAUMATIC SUBDURAL HEMORRHAGE, UNSPECIFIED (5) Hypokalemia Code(s): E87.6 - HYPOKALEMIA
--- NOTE | 2018-04-07 12:01 | PN ---
Progress Note (short form) - Note Progress Note: Patient is clear for discharge from Neurosurgery standpoint.
--- NOTE | 2018-04-07 12:34 | PN ---
Progress Note (short form) - Note Progress Note: 87 year old male had seizure after subdural hematoma evacuation .He initially came from [place] for mental status change. He has history of craniotomy and evacuation of subdural hematoma on February [address] Rad Wilson. Patient under went repeat craniotectomy and hematoma evacuation. SUBJECTIVE : he remains calm and no seizure activity identified. He had peg tube placement on april 03. NEUROLOGICAL EXAMINATION: He is remain comfortable, would open eye, non verbal and not following command opens eye spontaneously , not able to communicate and track objects no face twitching was seen pupils are small and left side there is eivdence of old surgery ? glaucoma withdraws to painful stimuli mri of brain reviewed and there is midline shift and subdural hematoma, there is edema present and no acute stroke identified Assessment- 1. 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 2. Focal seizure secondary to subdural and history of craniotectomy twice , seizure controlled , continue dilantin and keppra for now, he is on max dose of keppra. No clinical seizure or focal seizure activity noticed and eeg report reviewed. continue current dose of AED. continue supportive treatment, can be discharged back to [place] Thanking you os much Jerardo Stokes MD
--- NOTE | 2018-04-07 12:38 | DS ---
Physical Examination Vital Signs: Vital Signs Temperature 98.6 F 04/07/18 10:00 Pulse Rate 81 04/07/18 10:00 Respiratory Rate 20 04/07/18 10:00 Blood Pressure 161/72 04/07/18 10:00 O2 Sat by Pulse Oximetry (%) 100 04/07/18 10:00 Findings/Remarks: see today progress note Labs: CBC, BMP 04/04/18 06:00 04/03/18 06:30 Discharge Summary Reason For Visit: SUBDURAL HEMORRHAGE Current Active Problems Afib (Acute) Atrial flutter (Acute) Cerebrovascular accident (CVA) (Acute) Demand ischemia (Acute) Electrolyte abnormality (Acute) Focal seizures (Acute) History of craniotomy (Acute) History of endovascular stent graft for abdominal aortic aneurysm (AAA) (Acute) Hyperlipidemia (Acute) Hypokalemia (Acute) Hypokalemia (Acute) Hypokalemia (Acute) Pneumonia (Acute) Respiratory failure (Acute) S/P CABG (coronary artery bypass graft) (Acute) Hospital Course: pt well known to me from last admission In summary this visit. 87 yo man admitted for lethargy 03/16 --recent cva with hematoma evacuation 02/18, -- back with recurrent accumulation of subdural hematoma underwent burrhole and drainage of hematoma 03/18- post op complicated by respiratory failure/ pneumonia-- rll infiltrate intubated 03/19 for airway protection. treated with abx extended icu stay extubated successfully treated with abx i/d /neurology and pulmonary followed INITIALLY FED WITH NG TUBE. unable to eat/ remained lethargic Peg inserted for meds getting feeds also/ tolerating pts hcp being informed/ aware of all procedings mri brain also done-- eeg-- also done - abnormal- On Epileptic meds.. Stable for d/c to intermediate now condition remains guarded. pt is dnr/ di Time spend - examining/ documenting and coordating care-- 40 min f/u cxr in 4 weeks advised to document clearing of pneumonia Condition: Guarded - Instructions Disposition: INTERMEDIATE FACILITY - Home Medications Comprehensive Discharge Medication List: Ambulatory Orders Brimonidine Tartrate/Timolol [Combigan 0.2%-0.5% Eye Drops] 1 drop OD DAILY 01/13 Eluxadoline [Viberzi] 75 mg PO DAILY 10/01/17 Metoprolol Tartrate [Lopressor -] 25 mg PO BID #60 tablet 10/07/17 Acetaminophen [Tylenol .Regular Strength -] 650 mg PO Q6H PRN #30 tablet Amlodipine Besylate [Norvasc -] 10 mg PO DAILY #30 tablet 02/25/18 Chlorthalidone [Hygroton -] 25 mg PO DAILY #30 tablet 02/25/18 Docusate Sodium [Colace -] 100 mg PO DAILY #60 capsule 02/25/18 Gabapentin [Neurontin -] 100 mg PO TID #90 capsule 02/25/18 Potassium Chloride [K-Dur -] 20 meq PO DAILY #30 tablet.er 02/25/18 levETIRAcetam [Keppra -] 500 mg PO BID #60 tablet 02/25/18 Levothyroxine [Synthroid -] 50 mcg PO DAILY@0600 03/16/18 Atorvastatin Ca [Lipitor] 10 mg NGT HS tablet 04/07/18 Losartan Potassium [Cozaar -] 50 mg PO DAILY tablet 04/07/18 Pantoprazole Suspension [Protonix Packets For Oral Suspension -] 40 mg PEG DAILY packet 04/07/18 Phenytoin Oral Suspension [Dilantin Oral Suspension 100 MG/4 ML] 100 mg PEG TID cup 04/07/18 Timolol 0.5% [Timoptic 0.5%] 1 drop OD DAILY drops 04/07/18 levETIRAcetam [Keppra -] 1,000 mg PO BID tablet 04/07/18
--- NOTE | 2018-04-07 13:33 | PN ---
Progress Note (short form) - Note Progress Note: PULMONARY Lethargic but arousable. No fevers recorded. Vital Signs Period Temp Pulse Resp BP Sys/Michel Pulse Ox Last 24 Hr 98.4 F-99.0 F 79-89 16-20 142-164/70-94 100-100 Gen: lethargic but arousable Heart: RRR Lung: scattered rhonchi Abd: soft, nontender Ext: no edema CBC, BMP 04/04/18 06:00 04/03/18 06:30 Active Medications Acetaminophen (Ofirmev Injection -) 1,000 mg IVPB Q6H PRN PRN Reason: PAIN LEVEL 6-10 Last Admin: 03/29/18 22:29 Dose: 1,000 mg Amlodipine Besylate (Norvasc -) 10 mg PO DAILY [facility] Last Admin: 04/07/18 09:36 Dose: 10 mg Atorvastatin Calcium (Lipitor -) 10 mg NGT HS [facility] Last Admin: 04/06/18 21:37 Dose: 10 mg Brimonidine Tartrate (Alphagan 0.2% -) 1 drop OD DAILY [facility] Last Admin: 04/06/18 09:16 Dose: 1 drop Levetiracetam (Keppra Oral Solution -) 1,000 mg PEG BID [facility] Last Admin: 04/07/18 09:37 Dose: 1,000 mg Levothyroxine Sodium (Synthroid Injection -) 25 mcg IVPUSH DAILY@0700 [facility] Last Admin: 04/07/18 06:00 Dose: 25 mcg Losartan Potassium (Cozaar -) 50 mg PO DAILY [facility] Last Admin: 04/07/18 09:36 Dose: 50 mg Metoprolol Tartrate (Lopressor -) 50 mg NGT BID [facility] Pantoprazole Sodium (Protonix Packets For Oral Suspension -) 40 mg PEG DAILY [facility] Last Admin: 04/07/18 09:37 Dose: 40 mg Phenytoin Sodium (Dilantin Oral Suspension -) 100 mg PEG TID [facility] Last Admin: 04/07/18 05:40 Dose: 100 mg Senna (Senna Oral Solution -) 8.8 mg PO HS [facility] Last Admin: 04/06/18 21:37 Dose: 5 ml Timolol Maleate (Timoptic 0.5%) 1 drop OD DAILY [facility] Last Admin: 04/06/18 09:16 Dose: 1 drop A/P s/p Acute Respiratory Failure Pneumonia likely Aspiration Sepsis resolved Acute on Chronic Subdural Hematoma s/p [place] Hole/Evacuation of Hematoma Seizures +Troponins likely Demand Ischemia Atrial Fibrillation Acute Kidney Injury improved HTN CKD Hypothyroidism - O2 to keep SpO2 >90% - continue antibiotics - rate control - defer anticoagulation due to subdural hematoma - monitor urine output, creatinine - replete lytes - continue antiepileptics per neuro - mechanical DVT prophylaxis
[2018-04-07] MEDS: TIMOLOL 0.5% OPHTHALMIC SOL 5 ML BOTTLE OD SCH (13:57)
[2018-04-07] MEDS: BRIMONIDINE TARTRATE 0.2% OPHTHALMIC 5 ML BOTTLE OD SCH (13:57)
[2018-04-07] MEDS ORDERED: ATORVASTATIN CA 10 MG TABLET (FP) PEG SCH (18:09)
[2018-04-07] MEDS ORDERED: SENNOSIDES 8.8 MG/5 ML BULK BOTTLE PEG SCH (18:10)
[2018-04-07] MEDS ORDERED: amLODIPine BESYLATE 10 MG TABLET (FP) PEG SCH (18:11)
[2018-04-07] MEDS ORDERED: LOSARTAN POTASSIUM 50 MG TABLET (FP) PEG SCH (18:11)
[2018-04-07] MEDS: METOPROLOL TARTRATE 50 MG TABLET (FP) PEG SCH (21:21)
[2018-04-08] MEDS ORDERED: PT OWN MED DRAWER 7, Y5N ONE ×2 (05:30→09:43)
[2018-04-08] MEDS: PHENYTOIN 100 MG/4 ML U-D CUP PEG SCH (05:48)
[2018-04-08] MEDS ORDERED: LEVOTHYROXINE NA 50 MCG TABLET (FP) GT SCH (07:00)
--- NOTE | 2018-04-08 07:52 | PN ---
Progress Note (short form) - Note Progress Note: Chief complaint: Events noted, notes reviewed, remains non verbal, in no distress History of Present Illness: Seen and examined on telemetry. Events noted, notes reviewed, remains non verbal , in no distress Echocardiography dated 03/20/2018 revealed mild cLVH, normal LVEF 65%, normal RV size and function, mild LAE, mild MR, AR and moderate TR Allergies: NKA. Medical therapy currently includes: Current Medications Acetaminophen (Ofirmev Injection -) 1,000 mg IVPB Q6H PRN PRN Reason: PAIN LEVEL 6-10 Last Admin: 03/29/18 22:29 Dose: 1,000 mg Amlodipine Besylate (Norvasc -) 10 mg PEG DAILY [facility] Atorvastatin Calcium (Lipitor -) 10 mg PEG HS [facility] Last Admin: 04/07/18 21:21 Dose: 10 mg Brimonidine Tartrate (Alphagan 0.2% -) 1 drop OD DAILY [facility] Last Admin: 04/07/18 13:57 Dose: 1 drop Levetiracetam (Keppra Oral Solution -) 1,000 mg PEG BID [facility] Last Admin: 04/07/18 21:21 Dose: 1,000 mg Levothyroxine Sodium (Synthroid -) 50 mcg GT DAILY@0700 [facility] Last Admin: 04/08/18 06:13 Dose: 50 mcg Losartan Potassium (Cozaar -) 50 mg PEG DAILY [facility] Metoprolol Tartrate (Lopressor -) 50 mg PEG BID [facility] Last Admin: 04/07/18 21:21 Dose: 50 mg Pantoprazole Sodium (Protonix Packets For Oral Suspension -) 40 mg PEG DAILY [facility] Last Admin: 04/07/18 09:37 Dose: 40 mg Phenytoin Sodium (Dilantin Oral Suspension -) 100 mg PEG TID [facility] Last Admin: 04/08/18 05:48 Dose: 100 mg Senna (Senna Oral Solution -) 8.8 mg PEG HS [facility] Last Admin: 04/07/18 21:20 Dose: 5 ml Timolol Maleate (Timoptic 0.5%) 1 drop OD DAILY [facility] Last Admin: 04/07/18 13:57 Dose: 1 drop Review of Systems: Unable to Obtain Physical Examination: Vital Signs: Last Vital Signs Temp Pulse Resp BP Pulse Ox 98.5 F 69 18 127/62 100 04/08/18 02:00 04/08/18 02:00 04/08/18 02:00 04/08/18 02:00 04/07/18 21:00 Intake & Output 04/05/18 04/06/18 04/07/18 04/08/18 23:59 23:59 23:59 23:59 Intake Total 100 1060 1470 560 Balance 100 1060 1470 560 Neck: Supple negative JVD no bruit appreciated Heart: S1 and S2 Regular Rate and Rhythm Lungs: Diminished Breath Sounds at the Bases Bilateral Scattered Rhonchi Abdomen: Soft benign normoactive bowel sounds Extremities: Negative edema Lab Data: CBC, BMP 04/04/18 06:00 04/03/18 06:30 ASSESSMENT: 1. post Respiratory Failure referable to probable aspiration pneumonia, resolved 2. Paroxysmal atypical atrial flutter [id number] score of 5 currently on no A/ C related to subdural hematoma 3. CAD post CABG angina pectoris demand ischemic injury 4. Diastolic LV dysfunction with class 0-I NYHA classification LV failure, compensated/euvolemic 5. Acute on Chronic Subdural Hematoma post [place] Hole/Evacuation of Hematoma 6. Seizure disorder 7. HTN 8. Hypercholesterolemia 9. AAA post EVAR 10. Hypothyroidism 11. Acute on chronic kidney Injury 12. Anemia PLAN: 1. Continue Lopressor 2. Continue Cozaar 3. Continue Lipitor 4. Defer anticoagulation for atrial flutter with [id number] score of 5 due to subdural hematoma 5. Continue anti-epileptics per neuro service 6. D/C planning to shelter as per the primary team Lanre Riggs M.D.
--- NOTE | 2018-04-08 09:14 | PN ---
Progress Note (short form) - Note Progress Note: 87 year old male had seizure after subdural hematoma evacuation .He initially came from [place] for mental status change. He has history of craniotomy and evacuation of subdural hematoma on February [address] Rad Wilson. Patient under went repeat craniotectomy and hematoma evacuation. SUBJECTIVE : no acute distress, cleared from Neurosurgery point of view, there is no acute stroke on mri. Patient has stitches to be taken out before discharge from hospital NEUROLOGICAL EXAMINATION: He is remain comfortable, would open eye, non verbal and not following command opens eye spontaneously , not able to communicate and track objects no face twitching was seen pupils are small and left side there is eivdence of old surgery ? glaucoma withdraws to painful stimuli mri of brain reviewed and there is midline shift and subdural hematoma, there is edema present and no acute stroke identified Assessment- 1. 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 2. Focal seizure secondary to subdural and history of craniotectomy twice , seizure controlled , continue dilantin and keppra for now, His medication are being converted through PEG tube . He is being sent back to [place], I would see him as needed basis Thanking you os much Jerardo Stokes MD
[2018-04-08] MEDS: TIMOLOL 0.5% OPHTHALMIC SOL 5 ML BOTTLE OD SCH (10:01)
[2018-04-08] MEDS: BRIMONIDINE TARTRATE 0.2% OPHTHALMIC 5 ML BOTTLE OD SCH (10:01)
[2018-04-08] MEDS: levETIRAcetam 500 MG/5 ML ORAL SOLUTION (UNIT-DOSE CUPS) PEG SCH (10:02)
[2018-04-08] MEDS: PANTOPRAZOLE SOD 40 MG SUSPENSION PACKET PEG SCH (10:02)
[2018-04-08] MEDS: METOPROLOL TARTRATE 50 MG TABLET (FP) PEG SCH (10:02)
[2018-04-08 10:09] VITALS: BP 148/69; PULSE 85; TEMP 98.2
[2018-04-08] MEDS ORDERED: NYSTATIN 100,000 UNIT/GM TOPICAL CREAM 15 GM TUBE TP SCH (12:00)
== END 2018-04-08 13:10 | DRG 25 ==
LOC: JER 12:45 → JERBED 14:40 → JICU 18:34 → J4S 03-29 18:10
PROVIDERS: ADMIT Internal Medicine; ATTEND Internal Medicine
PROC: 30233R1 Transfusion of Nonautologous Platelets into Peripheral Vein, Percutaneous Approach (ICD-10-PCS; 2018-03-16)
PROC: 0W310ZZ Control Bleeding in Cranial Cavity, Open Approach (ICD-10-PCS; 2018-03-18)
PROC: 0WC10ZZ Extirpation of Matter from Cranial Cavity, Open Approach (ICD-10-PCS; principal; 2018-03-18 09:00)
PROC: 5A1955Z Respiratory Ventilation, Greater than 96 Consecutive Hours (ICD-10-PCS; 2018-03-19)
PROC: 0BH17EZ Insertion of Endotracheal Airway into Trachea, Via Natural or Artificial Opening (ICD-10-PCS; 2018-03-19)
PROC: 0DH63UZ Insertion of Feeding Device into Stomach, Percutaneous Approach (ICD-10-PCS; 2018-04-03)
DX: I62.01 Nontraumatic acute subdural hemorrhage (principal); J96.01 Acute respiratory failure with hypoxia; J69.0 Pneumonitis due to inhalation of food and vomit; G93.6 Cerebral edema; I24.8 Other forms of acute ischemic heart disease; Z68.1 Body mass index [BMI] 19.9 or less, adult; G97.82 Other postprocedural complications and disorders of nervous system; I48.92 Unspecified atrial flutter; N17.9 Acute kidney failure, unspecified; I13.0 Hypertensive heart and chronic kidney disease with heart failure and stage 1 through stage 4 chronic kidney disease, or unspecified chronic kidney disease; I50.30 Unspecified diastolic (congestive) heart failure; Y83.9 Surgical procedure, unspecified as the cause of abnormal reaction of the patient, or of later complication, without mention of misadventure at the time of the procedure; N18.9 Chronic kidney disease, unspecified; E87.6 Hypokalemia; E83.42 Hypomagnesemia; M62.50 Muscle wasting and atrophy, not elsewhere classified, unspecified site; R62.7 Adult failure to thrive; R56.9 Unspecified convulsions; G93.89 Other specified disorders of brain; E03.9 Hypothyroidism, unspecified; E78.5 Hyperlipidemia, unspecified; F03.90 Unspecified dementia, unspecified severity, without behavioral disturbance, psychotic disturbance, mood disturbance, and anxiety; D64.9 Anemia, unspecified; Z95.1 Presence of aortocoronary bypass graft; I25.119 Atherosclerotic heart disease of native coronary artery with unspecified angina pectoris; I48.91 Unspecified atrial fibrillation; R13.10 Dysphagia, unspecified
CPT/HCPCS: 31500; 36415; 36430; 36600; 70450-TC; 70551-TC; 71045-TC-FY; 71046-TC-FY; 80048; 80053; 82550; 82803; 83735; 84100; 84484; 85025; 85027; 85610; 85730; 86850; 86900; 86901; 87040; 87070; 87077; 87205; 93005; 93010; 93306-TC; 94002; 94640; 95816; 97161-GP; 99285-25; G0480; J0131; J3480; J7030; P9034; P9038

== ENCOUNTER 2018-04-27 16:18 | Inpatient (IN) | payer OTHER, BC ==
--- NOTE | 2018-04-27 17:04 | PDOC ---
History of Present Illness - General Chief Complaint: Seizure Stated Complaint: SEIZURE Time Seen by Provider: 04/27/18 16:41 History Source: [facility] Records Exam Limitations: Other Past History - Past Medical History Allergies/Adverse Reactions: Allergies Allergy/AdvReac Type Severity Reaction Status Date / Time No Known Allergies Allergy Verified 04/27/18 16:40 Home Medications: Ambulatory Orders Brimonidine Tartrate/Timolol [Combigan 0.2%-0.5% Eye Drops] 1 drop OD DAILY 01/13 Atorvastatin Ca [Lipitor] 10 mg NGT HS tablet 04/07/18 Pantoprazole Suspension [Protonix Packets For Oral Suspension -] 40 mg PEG DAILY packet 04/07/18 Amlodipine Besylate [Norvasc -] 10 mg PEG DAILY #30 tablet 04/08/18 Docusate Sodium [Colace -] 100 mg PEG DAILY #60 capsule 04/08/18 Levothyroxine [Synthroid -] 50 mcg PEG DAILY@0600 #0 syr 04/08/18 Losartan Potassium [Cozaar -] 50 mg PEG DAILY #30 tablet 04/08/18 Metoprolol Tartrate [Lopressor -] 50 mg PEG BID #60 tablet 04/08/18 Acetaminophen [Tylenol .Regular Strength -] 500 mg PEG BID PRN 04/27/18 Albuterol 2.5/Ipratropium 0.5 [Duoneb -] 1 neb IH QID 04/27/18 Chlorthalidone 25 mg PEG DAILY 04/27/18 Guaifenesin 400 mg NGT BID 04/27/18 Naproxen 250 mg NGT DAILY 04/27/18 Phenytoin Oral Suspension [Dilantin Oral Suspension 100 MG/4 ML] 100 mg PEG BID 04/27/18 Scopolamine 1 each TD ASDIR 04/27/18 levETIRAcetam [Keppra Oral Solution -] 500 mg PEG BID 04/27/18 Cardiac Disorders: Yes (AAA- repair september 2017, AAA repair, CABG) COPD: No GI Disorders: Yes (IBS) Disorders: Yes (prostate disease) HTN: Yes Seizures: Yes Thyroid Disease: Yes (hypothyroidism, POLYMYALGIA) - Surgical History Abdominal Surgery: Yes (UMBILICAL HERNIA REPAIR-) Cardiac Surgery: Yes (CABG) - Immunization History Immunization Up to Date: No - Suicide/Smoking/Psychosocial Hx Smoking Status: No Smoking History: Unknown if ever smoked Have you smoked in the past 12 months: No Number of Cigarettes Smoked Daily: 0 Information on smoking cessation initiated: No Hx Alcohol Use: No Drug/Substance Use Hx: No Substance Use Type: None Hx Substance Use Treatment: No Review of Systems - Review of Systems Able to Perform ROS?: No *Physical Exam - Vital Signs Last Vital Signs Temp Pulse Resp BP Pulse Ox 98.9 F 88 18 179/81 H 99 04/27/18 16:40 04/27/18 16:40 04/27/18 16:40 04/27/18 16:40 04/27/18 16:40 - Physical Exam Comments: 04/27/18 17:15 Elderly frail man lying on his R side on stretcher, non-verbal, not responsive to verbal cues but appears to grimace/open eyes w/ deep tactile stimulation General Appearance: Yes: Appropriately Dressed Neck: positive: Supple Respiratory/Chest: positive: Lungs Clear, Normal Breath Sounds. negative: Respiratory Distress Gastrointestinal/Abdominal: positive: Soft. negative: Distended Integumentary: positive: Dry, Warm Heart Score/ECG Review - ECG Intrepretation Comment:: 04/27/18 17:30 Twelve-lead EKG was performed and reviewed by me. There is normal sinus rhythm with a normal rate. The axis is normal. The intervals are normal. There are no ST or T wave abnormalities. Impression: Normal twelve-lead EKG ED Treatment Course - LABORATORY CBC & Chemistry Diagram: 04/29/18 05:30 04/29/18 05:30 Medical Decision Making - Medical Decision Making 87-year-old male, history of HTN, HLD, anemia, seizures on dilantin and keppra, s/p CVA with hematoma evacuation, 02/18/2018, s/p SDH w/ burrhole and drainage of hematoma 03/15, C/B pna/resp failure/peg placement, non-verbal, DNR/DNI, sent from [facility] for seizure today. ENT staff reported that patient had a seizure that lasted for 3 minutes. Per records, dilantin lvl drawn 04/25 was subtherapeutic at 2.7, keppra lvl within nl therapeutic range. 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 Not currently on an KI inhibitor. K within normal limits. H&H 03/21 (hgb 8-9 since 03/15). Pending CT head report, will admit 04/27/18 19:08 Patient signed out to CODEY Russell pending CT read and admission. CODEY Russell aware that if CT head is unremarkable should place consult for neuro to address possible seizure med adjustment. *DC/Admit/Observation/Transfer Diagnosis at time of Disposition: Seizure, MALINDA (acute kidney injury) - Discharge Dispostion Condition at time of disposition: Fair - Referrals - Patient Instructions - Post Discharge Activity
[2018-04-27] MEDS ORDERED: PHENYTOIN SODIUM 100 MG/2 ML VIAL IVPB ONE (17:10)
[2018-04-27] MEDS ORDERED: SODIUM CHLORIDE 500 ML IV STA (17:11)
--- NOTE | 2018-04-27 17:14 | PDOC ---
*Physical Exam - Vital Signs Last Vital Signs Temp Pulse Resp BP Pulse Ox 98.9 F 88 18 179/81 H 99 04/27/18 16:40 04/27/18 16:40 04/27/18 16:40 04/27/18 16:40 04/27/18 16:40 Medical Decision Making - Medical Decision Making 04/27/18 17:14 Vital Signs Temp Pulse Resp BP Pulse Ox 98.9 F 88 18 179/81 H 99 04/27/18 16:40 04/27/18 16:40 04/27/18 16:40 04/27/18 16:40 04/27/18 16:40 Case discussed with the PACODEY. Plan as per CODEY. *DC/Admit/Observation/Transfer - Referrals Referrals: Laura Yoder MD [Primary Care Provider] - - Patient Instructions - Post Discharge Activity
[2018-04-27 17:20] LABS: BASO % 0.2 % (0-2.0); EOS % 12.9 % (0-4.5); HEMATOCRIT 24.8 % (35.4-49); HEMOGLOBIN 8.7 GM/dL (11.7-16.9); LYMPH % 15.6 % (8-40); MCH 29.6 pg (25.7-33.7); MCHC 35.3 g/dl (32.0-35.9); MEAN CELL VOLUME 83.9 fl (80-96); MEAN PLT VOLUME 7.2 fl (7.5-11.1); MONO % 10.7 % (3.8-10.2); NEUT % 60.6 % (42.8-82.8); PLATELET COUNT 239 K/MM3 (134-434); RBC 2.96 M/mm3 (4.00-5.60); RDW 14.5 % (11.9-15.9); WHITE BLOOD COUNT 8.3 K/mm3 (4.0-10.0)
[2018-04-27 17:49] LABS: ALBUMIN 2.9 g/dl (3.4-5.0); ALK PHOS 125 U/L (45-117); ANION GAP 11 MMOL/L (8-16); BILIRUBIN,TOTAL 0.4 mg/dL (0.2-1); BLOOD UREA NITROGEN 75 mg/dL (7-18); CHLORIDE 87 mmol/L (98-107); CO2 29 mmol/L (21-32); CREATININE 4.9 mg/dL (0.55-1.3); GLUCOSE,RANDOM 87 mg/dL (74-106); POTASSIUM 3.7 mmol/L (3.5-5.1); SGOT/AST 47 U/L (15-37); SGPT/ALT 34 U/L (13-61); SODIUM 127 mmol/L (136-145); TOT PROT 6.3 g/dl (6.4-8.2)
--- NOTE | 2018-04-27 19:37 | PDOC ---
*Physical Exam - Vital Signs Last Vital Signs Temp Pulse Resp BP Pulse Ox 98.9 F 78 18 125/52 L 100 04/27/18 16:40 04/27/18 18:46 04/27/18 18:46 04/27/18 18:46 04/27/18 18:46 ED Treatment Course - LABORATORY CBC & Chemistry Diagram: 04/27/18 17:00 04/27/18 17:00 - ADDITIONAL ORDERS Additional order review: Laboratory Results 04/27/18 04/27/18 17:33 17:00 Sodium 127 L Potassium 3.7 Chloride 87 L Carbon Dioxide 29 Anion Gap 11 BUN 75 H Creatinine 4.9 H Creat Clearance w eGFR 11.29 Random Glucose 87 Calcium 8.0 L Total Bilirubin 0.4 AST 47 H ALT 34 Alkaline Phosphatase 125 H Creatine Kinase 39 Troponin I < 0.02 Total Protein 6.3 L Albumin 2.9 L Phenytoin 2.1 L 04/27/18 17:00 RBC 2.96 L MCV 83.9 MCHC 35.3 RDW 14.5 MPV 7.2 L D Neutrophils % 60.6 Lymphocytes % 15.6 Monocytes % 10.7 H Eosinophils % 12.9 H Basophils % 0.2 - Medications Given in the ED: ED Medications Discontinued Medications Generic Name Dose Route Start Last Admin Trade Name Freq PRN Reason Stop Dose Admin Sodium Chloride 500 mls @ 500 mls/hr 04/27/18 17:11 04/27/18 17:17 Normal Saline - IV 04/27/18 18:10 500 mls/hr ASDIR STA Administration Phenytoin Sodium 1,260 mg 04/27/18 17:10 04/27/18 18:28 Dilantin Injection - IVPB 04/27/18 17:11 1,260 mg ONCE ONE Administration Medical Decision Making - Medical Decision Making 04/27/18 19:36 Endorsed to me to follow CT scan and to admit the patient to the hospitalist 04/27/18 21:32 Patient Full Name: JEREMI GARCIA Patient Accession No: [id number] Patient : [id number] Reason for Exam: seizure Referring Physician: MAEVE CHANEY Patient Name: JOSE BLOOD THIS IS A PRELIMINARY REPORT FROM IMAGING FURNITURE ASSEMBLER AND INSTALLER DATE OF SERVICE: 2018-04-27 20:03:26 IMAGES: 148 EXAM: HEAD CT WITHOUT CONTRAST HISTORY: Seizure COMPARISON: A report from a prior head CT from 02/17/18 was reviewed. Images were not provided FINDINGS: There is a chronic subdural collection along the left frontal convexity measuring 1 cm in maximum thickness No acute intra-or extra-axial hemorrhage or collection No midline shift There is moderate cortical atrophy. The size of the ventricles corresponds to the degree of cortical atrophy Confluent areas of low-attenuation in the periventricular and deep white matter are compatible with chronic microvascular ischemic changes There are atherosclerotic calcifications in the cavernous carotid and vertebral arteries The visualized paranasal sinuses and mastoid air cells are clear Individualized dose optimization techniques were used for this CT. THIS DOCUMENT HAS BEEN ELECTRONICALLY SIGNED Davonte Joy MD 04/27/2018 21:23 EST MBeatrizD. Please call Imaging Wood Panel Inspector [phone] ([phone]) with questions. 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 Acentric for Keppra 500 mg IV tonight. *DC/Admit/Observation/Transfer Diagnosis at time of Disposition: Seizure, MALINDA (acute kidney injury) - Discharge Dispostion Condition at time of disposition: Fair Decision to Admit order: Yes - Referrals Referrals: Laura Yoder MD [Primary Care Provider] - - Patient Instructions - Post Discharge Activity
[2018-04-27] MEDS ORDERED: levETIRAcetam 500 MG/5 ML INJECTION VIAL IVPB ONE ×2 (22:37→23:25)
[2018-04-27] MEDS ORDERED: SODIUM CHLORIDE 1,000 ML IV SCH (22:45)
--- NOTE | 2018-04-27 23:27 | HP ---
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 Who presents to the ED for witnessed Seizure Activity lasting 3 minutes per halfway staff. Patient is non-verbal, unable to provide HPI. In the ED, Dilantin level was subtherapuetic 2.1. Loading dose of Dilantin was given in ED. Patient will be admitted for Seizure Activity. 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 No: AFIB, Aneurysm, Aortic Insufficiency, Aortic Stenosis, CHF, Deep Vein Thrombosis, [place], Mitral Insufficiency, Mitral Stenosis, Murmur, Pulmonary Hypertension Pulmonary: Yes: Pneumonia Gastrointestinal: Yes: Irritable Bowel Disease Musculoskeletal: Yes: Chronic low back pain (with radiculopathy) Rheumatology: Yes: Gout, Other (Polymyalgia Rheumatica) Endocrine: Yes: Hypothyroidism. No: [place]'s Disease, Archie's Disease, Diabetes Insipidus, Diabetes Mellitus, Hyperparathyroidism, Hyperthyroidism, Osteopenia, SIADH, Other - Past Surgical History Past Surgical History: Yes: Appendectomy, CABG ([facility]), Tonsillectomy. No: None, AAA Repair, AICD, Amputation, Arthrosocopy, AV Fistula/Graft, Bariatric Surgery , Breast Biopsy, Bypass, Carotid Endarterectomy, Cataract Removal, Cholecystectomy, Colectomy, Colonoscopy, Colostomy, Craniotomy, , Cystectomy, Hernia Repair, Hysterectomy, Ileal Conduit, Ileosotomy, Joint Replacement, Kidney Transplant, Laminectomy, Liver Transplant, Mastectomy, Nephrectomy, Oopherectomy, Orchiectomy, Permanent Pacemaker, Prostatectomy, Splenectomy, Stent, Thoracotomy, TURP, Tubal Ligation, Upper Endoscopy, Valve Replacement, Vasectomy, Vein Stripping/Ligation - Advance Directives Advance Directives: Yes: DNR - Smoking History Smoking history: Unknown if ever smoked Have you smoked in the past 12 months: No Aproximately how many cigarettes per day: 0 - Alcohol/Substance Use Hx Alcohol Use: No - Social History Usual Living Arrangement: Yes: Snf ADL: Support Services History of Recent Travel: No Home Medications - Allergies Allergies/Adverse Reactions: Allergies Allergy/AdvReac Type Severity Reaction Status Date / Time No Known Allergies Allergy Verified 04/27/18 16:40 - Home Medications Home Medications: Ambulatory Orders Brimonidine Tartrate/Timolol [Combigan 0.2%-0.5% Eye Drops] 1 drop OD DAILY 01/13 Atorvastatin Ca [Lipitor] 10 mg NGT HS tablet 04/07/18 Pantoprazole Suspension [Protonix Packets For Oral Suspension -] 40 mg PEG DAILY packet 04/07/18 Amlodipine Besylate [Norvasc -] 10 mg PEG DAILY #30 tablet 04/08/18 Docusate Sodium [Colace -] 100 mg PEG DAILY #60 capsule 04/08/18 Levothyroxine [Synthroid -] 50 mcg PEG DAILY@0600 #0 syr 04/08/18 Losartan Potassium [Cozaar -] 50 mg PEG DAILY #30 tablet 04/08/18 Metoprolol Tartrate [Lopressor -] 50 mg PEG BID #60 tablet 04/08/18 Acetaminophen [Tylenol .Regular Strength -] 500 mg PEG BID PRN 04/27/18 Albuterol 2.5/Ipratropium 0.5 [Duoneb -] 1 neb IH QID 04/27/18 Chlorthalidone 25 mg PEG DAILY 04/27/18 Guaifenesin 400 mg NGT BID 04/27/18 Naproxen 250 mg NGT DAILY 04/27/18 Phenytoin Oral Suspension [Dilantin Oral Suspension 100 MG/4 ML] 100 mg PEG BID 04/27/18 Scopolamine 1 each TD ASDIR 04/27/18 levETIRAcetam [Keppra Oral Solution -] 500 mg PEG BID 04/27/18 Family Disease History - Family Disease History Family History: Unable to Obtain Review of Systems Unable to obtain ROS, reason: Dementia- non verbal Physical Examination Vital Signs: Vital Signs Temperature 98.9 F 04/27/18 16:40 Pulse Rate 78 04/27/18 18:46 Respiratory Rate 18 04/27/18 18:46 Blood Pressure 125/52 L 04/27/18 18:46 O2 Sat by Pulse Oximetry (%) 100 04/27/18 18:46 Constitutional: Yes: No Distress, Other (non-verbal at baseline) Eyes: Yes: Conjunctiva Clear, PERRL HENT: Yes: WNL, Atraumatic, Normocephalic Neck: Yes: Supple, Trachea Midline Cardiovascular: Yes: WNL, Regular Rate and Rhythm, S1, S2 Respiratory: Yes: WNL, Regular, CTA Bilaterally Gastrointestinal: Yes: Normal Bowel Sounds, Soft, Other (G-Tube intact) Renal/: Yes: Incontinence Breast(s): Yes: WNL Extremities: Yes: Other (contractures) Peripheral Pulses WNL: Yes Integumentary: Yes: Pressure Ulcer (sacral Stage II) Labs: CBC, BMP 04/27/18 17:00 04/27/18 17:00 Laboratory Results - last 24 hr 04/27/18 04/27/18 04/27/18 17:00 17:00 17:33 WBC 8.3 RBC 2.96 L Hgb 8.7 L Hct 24.8 L MCV 83.9 MCH 29.6 MCHC 35.3 RDW 14.5 Plt Count 239 D MPV 7.2 L D Absolute Neuts (auto) 5.0 Neutrophils % 60.6 Lymphocytes % 15.6 Monocytes % 10.7 H Eosinophils % 12.9 H Basophils % 0.2 Nucleated RBC % 0 Sodium 127 L Potassium 3.7 Chloride 87 L Carbon Dioxide 29 Anion Gap 11 BUN 75 H Creatinine 4.9 H Creat Clearance w eGFR 11.29 Random Glucose 87 Calcium 8.0 L Total Bilirubin 0.4 AST 47 H ALT 34 Alkaline Phosphatase 125 H Creatine Kinase 39 Troponin I < 0.02 Total Protein 6.3 L Albumin 2.9 L Phenytoin 2.1 L Intake & Output 04/25/18 04/26/18 04/27/18 04/28/18 23:59 23:59 23:59 23:59 Weight 63.503 kg Imaging - Results Chest X-ray: Image Reviewed Cat Scan: Report Reviewed (Read by Dr. Davonte Joy- there is a chronic subdural collection along the left frontal convexity measuring 1cm in maximum thickness. No acute intra or extra axial hemorrhage or collection. No midline shift. There is moderate cortical atrophy. Chronic microvascular ischemic changes.), Image Reviewed EKG: Image Reviewed (NSR 84bpm, No ST or TWI, QT/QTc 352/415) Problem List - Problems (1) Seizure Code(s): R56.9 - UNSPECIFIED CONVULSIONS (2) MALINDA (acute kidney injury) Code(s): N17.9 - ACUTE KIDNEY FAILURE, UNSPECIFIED (3) Cerebrovascular accident (CVA) Code(s): I63.9 - CEREBRAL INFARCTION, UNSPECIFIED (4) CAD (coronary artery disease) Code(s): I25.10 - ATHSCL HEART DISEASE OF [place] CORONARY ARTERY W/O ANG PCTRS Qualifiers: [place] vs. transplanted heart: [place] heart Associated angina: without angina (5) Afib Code(s): I48.91 - UNSPECIFIED ATRIAL FIBRILLATION (6) HTN (hypertension) Code(s): I10 - ESSENTIAL (PRIMARY) HYPERTENSION Qualifiers: Hypertension type: essential hypertension Qualified Code(s): I10 - Essential (primary) hypertension (7) Hyperlipidemia Code(s): E78.5 - HYPERLIPIDEMIA, UNSPECIFIED Qualifiers: Hyperlipidemia type: pure hypercholesterolemia Qualified Code(s): E78.00 - Pure hypercholesterolemia, unspecified; E78.0 - Pure hypercholesterolemia (8) Hypothyroid Code(s): E03.9 - HYPOTHYROIDISM, UNSPECIFIED Qualifiers: Hypothyroidism type: other Qualified Code(s): E03.8 - Other specified hypothyroidism (9) Failure to thrive Code(s): MQL0623 - Qualifiers: Failure to thrive age range: in adult Qualified Code(s): R62.7 - Adult failure to thrive (10) Functional quadriplegia Code(s): R53.2 - FUNCTIONAL QUADRIPLEGIA (11) History of craniotomy Code(s): Z98.890 - OTHER SPECIFIED POSTPROCEDURAL STATES (12) History of endovascular stent graft for abdominal aortic aneurysm (AAA) Code(s): Z95.828 - PRESENCE OF OTHER VASCULAR IMPLANTS AND GRAFTS (13) S/P CABG (coronary artery bypass graft) Code(s): Z95.1 - PRESENCE OF AORTOCORONARY BYPASS GRAFT Assessment/Plan 87 y/o man with PMHx Seizure Disorder, CVA, s/p Hematoma Evacuation(02/18/18), HTN, PNA, Respiratory Failure, Prostate, Failure to Thrive, Sacral Ulcer Stage II, IBS. Admitted to Telemetry for Seizure Activity, MALINDA, Hyponatremia for further evaluation of their emergent condition. Plan: Neuro: Seizure Disorder CVA - Likely secondary to electrolyte imbalance vs subtherapuetic Dilantin level vs neurological event - Dilantin Level subtherapuetic 2.1 - Keppra level pending - Dilantin loading dose given in ED, will continue - CT Head- no acute intra or extra axial hemorrhage or collection, chronic microvascular ischemic changes - Appreciate Neurology consult - Will continue Dilantin and Keppra - Seizure Precautions - Aspiration precautions - Continue cardiac monitoring - Monitor CBC, BMP Nephro: MALINDA - Likely secondary to dehydration vs medication - Cr 4.9, baseline (0.9-2.2) - NS bolus given in ED - Will continue gentle IVF - Appreciate Nephrology consult - Consider renal US r/o stenosis - Monitor BMP - INOs Card: HTN HLD -stable - Monitor BP - Continue Norvasc, Lipitor, Lopressor with parameters - Will hold Chlorthalidone, Cozaar secondary to MALINDA - Monitor BMP - EKG reviewed- NSR no ST or TWI Endo: Failure to Thrive - continue tube feedings - Albumin 2.9 - Monitor BMP Integumentary: Sacral Stage II Decubital Ulcer - Likely secondary to immobility - Wound Care Nurse for dressing changes - Will order Allevyn and Optiform - Turn Q2 hrs Functional Quadriplegia - Complete immobility due to frailty, end-stage dementia - Requires total care - Turn Q2h - Shaw Lift as needed - Heel protectors - Fall Precautions FEN - Continue tube feeds - Monitor Na, replete as indicated DVT/GI ppx - SCDs - Heparin SQ Code Status: DNR Dispo: Requires Inpatient Care Visit type - Emergency Visit Emergency Visit: Yes ED Registration Date: 04/27/18 Care time: The patient presented to the Emergency Department on the above date and was hospitalized for further evaluation of their emergent condition. - New Patient This patient is new to me today: Yes Date on this admission: 04/27/18 - Critical Care Critical Care patient: No Hospitalist Screening - Colonoscopy Questionnaire Colonoscopy Questionnaire: Colonoscopy Questionnaire - Patient: 50 - 75 years old and never had a screening colonoscopy: Unknown History of colon or rectal polyps, or CA: Unknown History of IBD, Crohn's disease or UC: Unknown History of abdominal radiation therapy as a child: Unknown - Relative: 1 with colon or rectal CA, or polyps at age 60 or younger: Unknown Colon or rectal CA diagnosed at age 45 or younger: Unknown Multiple relatives with colon or rectal CA: Unknown - Outcome: Screening Result: Negative Screen
[2018-04-28] MEDS: LEVOTHYROXINE NA 50 MCG TABLET (FP) PEG SCH (06:41)
[2018-04-28 07:30] LABS: BASO % 0.6 % (0-2.0); EOS % 16.4 % (0-4.5); HEMATOCRIT 23.9 % (35.4-49); HEMOGLOBIN 8.2 GM/dL (11.7-16.9); MCH 29.1 pg (25.7-33.7); MCHC 34.3 g/dl (32.0-35.9); MEAN CELL VOLUME 84.8 fl (80-96); MEAN PLT VOLUME 6.8 fl (7.5-11.1); PLATELET COUNT 214 K/MM3 (134-434); RBC 2.82 M/mm3 (4.00-5.60); RDW 14.6 % (11.9-15.9); WHITE BLOOD COUNT 6.4 K/mm3 (4.0-10.0)
[2018-04-28] MEDS: ALBUTEROL SO4 2.5/IPRATROPIUM 0.5 INH SOL 3 ML VIAL.NEB. NEB SCH ×4 (08:20→20:35)
[2018-04-28 08:53] LABS: ANION GAP 10 MMOL/L (8-16); BLOOD UREA NITROGEN 76 mg/dL (7-18); CALCIUM 8.2 mg/dL (8.5-10.1); CHLORIDE 89 mmol/L (98-107); CO2 29 mmol/L (21-32); CREATININE 5.1 mg/dL (0.55-1.3); GLUCOSE,RANDOM 97 mg/dL (74-106); MAGNESIUM 2.2 mg/dL (1.8-2.4); POTASSIUM 3.9 mmol/L (3.5-5.1); SODIUM 128 mmol/L (136-145)
[2018-04-28] MEDS ORDERED: PATIENT'S OWN MEDICATION (NON-FORMULARY) (Brimonidine Tartrate/Timolol [Combigan 0.2%-0.5% OD SCH (10:00)
[2018-04-28] MEDS ORDERED: PANTOPRAZOLE SOD 40 MG SUSPENSION PACKET PEG SCH (10:00)
[2018-04-28] MEDS: PHENYTOIN 100 MG/4 ML U-D CUP PEG SCH ×2 (10:03→21:55)
[2018-04-28] MEDS: levETIRAcetam 500 MG/5 ML ORAL SOLUTION (UNIT-DOSE CUPS) PEG SCH ×2 (10:03→21:54)
[2018-04-28] MEDS: BRIMONIDINE TARTRATE 0.2% OPHTHALMIC 5 ML BOTTLE OD SCH (10:03)
[2018-04-28] MEDS: RANITIDINE HCL 150 MG/10 ML UNIT-DOSE PEG SCH ×2 (10:04→21:55)
[2018-04-28] MEDS: TIMOLOL 0.5% OPHTHALMIC SOL 5 ML BOTTLE OD SCH (10:04)
[2018-04-28] MEDS: amLODIPine BESYLATE 10 MG TABLET (FP) PEG SCH (10:04)
[2018-04-28] MEDS: METOPROLOL TARTRATE 50 MG TABLET (FP) PEG SCH ×2 (10:04→21:55)
--- NOTE | 2018-04-28 11:55 | CONSULT ---
Consult - text type - Consultation Consultation Note: Renal Consult for MALINDA This is a 87 year old male with Hx of Hemorragic CVA, Seizure disorder , Hypertension, CAD, AAA s/p repair who presnted from [place] with seizure activity and found to have MALINDA. Pt noted to have normal renal function on recent admission. Pt is not able to provide any history. Med list shows ARB, diuretics and NSAIDs. Pt seen in Tele. Non-verbal. Not making urine as per nursing staff. PMhx: as above Allergies: NKDA Family Hx: NC Social Hx: unable to obtain ROS: unable to obtain because of clinical status Home Medications Medication Instructions Recorded Brimonidine Tartrate/Timolol 1 drop OD DAILY 10/01/17 [Combigan 0.2%-0.5% Eye Drops] Atorvastatin Ca [Lipitor] 10 mg NGT HS tablet 04/07/18 Pantoprazole Suspension [Protonix 40 mg PEG DAILY packet 04/07/18 Packets For Oral Suspension -] Amlodipine Besylate [Norvasc -] 10 mg PEG DAILY #30 tablet 04/08/18 Docusate Sodium [Colace -] 100 mg PEG DAILY #60 capsule 04/08/18 Levothyroxine [Synthroid -] 50 mcg PEG DAILY@0600 #0 syr 04/08/18 Losartan Potassium [Cozaar -] 50 mg PEG DAILY #30 tablet 04/08/18 Metoprolol Tartrate [Lopressor -] 50 mg PEG BID #60 tablet 04/08/18 Acetaminophen [Tylenol .Regular 500 mg PEG BID PRN 04/27/18 Strength -] Albuterol 2.5/Ipratropium 0.5 1 neb IH QID 04/27/18 [Duoneb -] Chlorthalidone 25 mg PEG DAILY 04/27/18 Guaifenesin 400 mg NGT BID 04/27/18 Naproxen 250 mg NGT DAILY 04/27/18 Phenytoin Oral Suspension 100 mg PEG BID 04/27/18 [Dilantin Oral Suspension 100 MG/4 ML] Scopolamine 1 each TD ASDIR 04/27/18 levETIRAcetam [Keppra Oral 500 mg PEG BID 04/27/18 Solution -] Vital Signs Temperature 98.3 F 04/28/18 09:59 Pulse Rate 67 04/28/18 09:59 Respiratory Rate 20 04/28/18 10:02 Blood Pressure 154/63 04/28/18 09:59 O2 Sat by Pulse Oximetry (%) 100 04/28/18 10:02 Intake & Output 04/25/18 04/26/18 04/27/18 04/28/18 23:59 23:59 23:59 23:59 Intake Total 504 Balance 504 Weight 63.503 kg 63.503 kg NAD Non-verbal sleeping dry MM, No JVD, Neck supple RRR, No M/R CTA (anterior exam) soft, Mild distension in Abd No overt bladder distension No LE edema, clubbing or cyanosis CBC, BMP 04/28/18 07:18 04/28/18 07:18 Current Medications Albuterol/Ipratropium (Duoneb -) 1 amp NEB RQID [facility] Last Admin: 04/28/18 08:20 Dose: 1 amp Amlodipine Besylate (Norvasc -) 10 mg PEG DAILY [facility] Last Admin: 04/28/18 10:04 Dose: 10 mg Atorvastatin Calcium (Lipitor -) 10 mg NGT HS [facility] Brimonidine Tartrate (Alphagan 0.2% -) 1 drop OD DAILY [facility] Last Admin: 04/28/18 10:03 Dose: 1 drop Sodium Chloride (Normal Saline -) 1,000 mls @ 42 mls/hr IV ASDIR [facility] Last Admin: 04/27/18 22:50 Dose: 42 mls/hr Levetiracetam (Keppra Oral Solution -) 500 mg PEG BID [facility] Last Admin: 04/28/18 10:03 Dose: 500 mg Levothyroxine Sodium (Synthroid -) 50 mcg PEG DAILY@0600 [facility] Last Admin: 04/28/18 06:41 Dose: 50 mcg Metoprolol Tartrate (Lopressor -) 50 mg PEG BID [facility] Last Admin: 04/28/18 10:04 Dose: 50 mg Phenytoin Sodium (Dilantin Oral Suspension -) 100 mg PEG BID [facility] Last Admin: 04/28/18 10:03 Dose: 100 mg Ranitidine HCl (Zantac Oral Solution -) 150 mg PEG BID [facility] Last Admin: 04/28/18 10:04 Dose: 150 mg Timolol Maleate (Timoptic 0.5%) 1 drop OD DAILY [facility] Last Admin: 04/28/18 10:04 Dose: 1 drop 87 year old male with Hx of Hemorrhagic CVA, Seizure disorder, Hypertension, CAD, AAA s/p repair who presnted from [place] with seizure activity and found to have MALINDA. #Acute Kidney injury secondary to obstruction vs. Rhabdo vs. ATN from medications #Seizures #Hyponatremia in setting fo renal failure w/o overt fluid overload #Anemia Will place Penny catheter for possible retention and strict I and O Check urine studies for FeUrea, UPCR Check CK levels to r/o rhabdo Continue isotonic saline (increase rate as no signs of volume overload and last ECHO showed preserved LV/RV function Check US of kidney and bladder no need for 3% saline Check iron studies Thank you Jay Diaz DO
[2018-04-28 13:56] LABS: URINE APPEARANCE CLEAR; URINE BILIRUBIN NEGATIVE (<2.0 mg/dL); URINE COLOR LTYELLOW; URINE GLUCOSE (UA) NEGATIVE (NEGATIVE); URINE KETONE NEGATIVE (NEGATIVE); URINE LEUK ESTERASE NEGATIVE (NEGATIVE); URINE NITRITE NEGATIVE (NEGATIVE); URINE UROBILINOGEN NEGATIVE mg/dL (0.2-1.0)
[2018-04-28 13:58] LABS: URINE PROTEIN 1+ (NEGATIVE)
[2018-04-28 14:02] LABS: URINE BACTERIA RARE /hpf (NONE SEEN)
[2018-04-28 14:24] LABS: URINE CREATININE 41.8 mg/dL (2-36)
--- NOTE | 2018-04-28 14:45 | PN ---
Physical Exam: SUBJECTIVE: Patient seen and examined at bedside this morning. Patient is nonresponsive, in no acute distress. OBJECTIVE: Vital Signs Period Temp Pulse Resp BP Sys/Michel Pulse Ox Last 24 Hr 97.6 F-98.9 F 60-88 16-20 123-179/52-81 94-100 GENERAL: The patient is in no acute distress, nonverbal. HEAD: Normocephalic. Horizontal scar visualized on left side from prior surgery. EYES: Sclera anicteric, conjunctiva clear. ENT: Oropharynx with multiple erythematous lesions along roof of mouth and tongue. Dry mucous membranes. NECK: Trachea midline, supple. LUNGS: Breath sounds equal, clear to auscultation bilaterally, no wheezes, appreciated. HEART: Regular rate and rhythm, S1, S2 without murmur, rub or gallop. ABDOMEN: Soft, nondistended, normoactive bowel sounds. No hepatosplenomegaly appreciated. EXTREMITIES: 2+ radial pulses, 1+ dorslis pedis pulses b/l. SKIN: Warm, dry. 5cm x 2cm lesion noted on anterior left leg. Bandaged scratches along right leg. Stage II sacral ulcer noted. Laboratory Results - last 24 hr 04/27/18 04/27/18 04/27/18 17:00 17:00 17:33 WBC 8.3 RBC 2.96 L Hgb 8.7 L Hct 24.8 L MCV 83.9 MCH 29.6 MCHC 35.3 RDW 14.5 Plt Count 239 D MPV 7.2 L D Absolute Neuts (auto) 5.0 Neutrophils % 60.6 Lymphocytes % 15.6 Monocytes % 10.7 H Eosinophils % 12.9 H Basophils % 0.2 Nucleated RBC % 0 Sodium 127 L Potassium 3.7 Chloride 87 L Carbon Dioxide 29 Anion Gap 11 BUN 75 H Creatinine 4.9 H Creat Clearance w eGFR 11.29 Random Glucose 87 Calcium 8.0 L Phosphorus Magnesium Total Bilirubin 0.4 AST 47 H ALT 34 Alkaline Phosphatase 125 H Creatine Kinase 39 Troponin I < 0.02 Total Protein 6.3 L Albumin 2.9 L TSH Urine Color Urine Appearance Urine pH Ur Specific [place] Urine Protein Urine Glucose (UA) Urine Ketones Urine Blood Urine Nitrite Urine Bilirubin Urine Urobilinogen Ur Leukocyte Esterase Urine WBC (Auto) Urine RBC (Auto) Urine Bacteria U Random Total Protein Ur Random Sodium Ur Random Urea Nitrogn Urine Creatinine Phenytoin 2.1 L 04/28/18 04/28/18 04/28/18 07:18 07:18 07:18 WBC 6.4 RBC 2.82 L Hgb 8.2 L Hct 23.9 L MCV 84.8 MCH 29.1 MCHC 34.3 RDW 14.6 Plt Count 214 MPV 6.8 L Absolute Neuts (auto) 3.1 Neutrophils % 49.0 Lymphocytes % 20.0 D Monocytes % 14.0 H Eosinophils % 16.4 H Basophils % 0.6 Nucleated RBC % 0 Sodium 128 L Potassium 3.9 Chloride 89 L Carbon Dioxide 29 Anion Gap 10 BUN 76 H Creatinine 5.1 H Creat Clearance w eGFR 10.78 Random Glucose 97 Calcium 8.2 L Phosphorus 5.0 H Magnesium 2.2 Total Bilirubin AST ALT Alkaline Phosphatase Creatine Kinase 62 Troponin I Total Protein Albumin TSH 11.70 H Cancelled Urine Color Urine Appearance Urine pH Ur Specific [place] Urine Protein Urine Glucose (UA) Urine Ketones Urine Blood Urine Nitrite Urine Bilirubin Urine Urobilinogen Ur Leukocyte Esterase Urine WBC (Auto) Urine RBC (Auto) Urine Bacteria U Random Total Protein Ur Random Sodium Ur Random Urea Nitrogn Urine Creatinine Phenytoin 04/28/18 04/28/18 04/28/18 12:00 12:00 12:00 WBC RBC Hgb Hct MCV MCH MCHC RDW Plt Count MPV Absolute Neuts (auto) Neutrophils % Lymphocytes % Monocytes % Eosinophils % Basophils % Nucleated RBC % Sodium Potassium Chloride Carbon Dioxide Anion Gap BUN Creatinine Creat Clearance w eGFR Random Glucose Calcium Phosphorus Magnesium Total Bilirubin AST ALT Alkaline Phosphatase Creatine Kinase Troponin I Total Protein Albumin TSH Urine Color Ltyellow Urine Appearance Clear Urine pH 7.0 D Ur Specific [place] 1.009 Urine Protein 1+ H Urine Glucose (UA) Negative Urine Ketones Negative Urine Blood 2+ H Urine Nitrite Negative Urine Bilirubin Negative Urine Urobilinogen Negative Ur Leukocyte Esterase Negative Urine WBC (Auto) 1 Urine RBC (Auto) 10 Urine Bacteria Rare U Random Total Protein 17 H Ur Random Sodium 57 Ur Random Urea Nitrogn 341 L Urine Creatinine 41.8 H Cancelled Phenytoin 04/28/18 04/28/18 12:00 12:00 WBC RBC Hgb Hct MCV MCH MCHC RDW Plt Count MPV Absolute Neuts (auto) Neutrophils % Lymphocytes % Monocytes % Eosinophils % Basophils % Nucleated RBC % Sodium Potassium Chloride Carbon Dioxide Anion Gap BUN Creatinine Creat Clearance w eGFR Random Glucose Calcium Phosphorus Magnesium Total Bilirubin AST ALT Alkaline Phosphatase Creatine Kinase Troponin I Total Protein Albumin TSH Urine Color Urine Appearance Urine pH Ur Specific [place] Urine Protein Urine Glucose (UA) Urine Ketones Urine Blood Urine Nitrite Urine Bilirubin Urine Urobilinogen Ur Leukocyte Esterase Urine WBC (Auto) Urine RBC (Auto) Urine Bacteria U Random Total Protein Cancelled Ur Random Sodium Ur Random Urea Nitrogn Cancelled Urine Creatinine Phenytoin Active Medications Generic Name Dose Route Start Last Admin Trade Name Edel PRN Reason Stop Dose Admin Albuterol/Ipratropium 1 amp 04/28/18 08:00 04/28/18 10:50 Duoneb - NEB 1 amp RQID KRISTY Administration Amlodipine Besylate 10 mg 04/28/18 10:00 04/28/18 10:04 Norvasc - PEG 10 mg DAILY KRISTY Administration Atorvastatin Calcium 10 mg 04/28/18 22:00 Lipitor - NGT HS KRISTY Brimonidine Tartrate 1 drop 04/28/18 10:00 04/28/18 10:03 Alphagan 0.2% - OD 1 drop DAILY KRISTY Administration Sodium Chloride 1,000 mls @ 42 mls/hr 04/27/18 22:45 04/27/18 22:50 Normal Saline - IV 42 mls/hr ASDIR KRISTY Administration Levetiracetam 500 mg 04/28/18 10:00 04/28/18 10:03 Keppra Oral Solution - PEG 500 mg BID KRISTY Administration Levothyroxine Sodium 50 mcg 04/28/18 06:30 04/28/18 06:41 Synthroid - PEG 50 mcg DAILY@0600 KRISTY Administration Metoprolol Tartrate 50 mg 04/28/18 10:00 04/28/18 10:04 Lopressor - PEG 50 mg BID KRISTY Administration Phenytoin Sodium 100 mg 04/28/18 10:00 04/28/18 10:03 Dilantin Oral Suspension - PEG 100 mg BID KRISTY Administration Ranitidine HCl 150 mg 04/28/18 10:00 04/28/18 10:04 Zantac Oral Solution - PEG 150 mg BID KRISTY Administration Timolol Maleate 1 drop 04/28/18 10:00 04/28/18 10:04 Timoptic 0.5% OD 1 drop DAILY KRISTY Administration ASSESSMENT/PLAN: Patient is an 87 year old male from [facility] with history of seizures (on Dilantin , and Keppra) presents after witnessed seizure. Patient is nonverbal. Seizure -May be due to subtherapeutic level of anti-epileptics vs. electrolyte imbalance (hyponatremia) -CT head shows -Dilantin level subtherapeutic at 2.1 -F/U Keppra level -Dilantin 100mg PEG BID -Keppra 500mg PEG BID -F/U Neurology consult (Dr. Stokes) Altered mental status -May be secondary to hyponatremia -Rule out sepsis: F/U blood cultures F/U urine cultures Hyponatremia -Nephrology consult (Dr. Diaz) appreciated. No indicaiton for 3% sodium. Will increase rate of IV normal saline -Follow CMP Acute kidney injury -May be secondary to seizure activity (rhabdomyolisis), vs. dehydration vs anti- epileptics medication -Creatinine 5.1 -Nephrology consult (Dr. Diaz) appreciated. F/U urine studies F/U kidney, bladder ultrasound F/U strict intake and output Hypertension -Metoprolol 50mg PEG BID -Norvasc 10mg PEG daily Hyperlipidemia -Atorvastatin 10mg HS Hypothyroidism -Synthroid 50mcg PEG daily FEN -1 liter IV normal saline at 75mL/ hour -Hyponatremia. Will follow CMP -Tube feeds to be reinstated, pending emergency vehicle operations instructor recommendations. Prophylaxis SCDs b/l lower extremities Disposition Continue care in ICU Visit type - Emergency Visit Emergency Visit: Yes ED Registration Date: 04/27/18 Care time: The patient presented to the Emergency Department on the above date and was hospitalized for further evaluation of their emergent condition. - New Patient This patient is new to me today: Yes Date on this admission: 04/28/18 - Critical Care Critical Care patient: Yes Total Critical Care Time (in minutes): 35 Critical Care Statement: The care of this patient involved high complexity decision making to prevent further life threatening deterioration of the patient 's condition and/or to evaluate & treat vital organ system(s) failure or risk of failure. - Discharge Referral Referred to [facility] Med P.C.: No
[2018-04-28] MEDS ORDERED: SODIUM CHLORIDE 1,000 ML IV SCH ×2 (16:00→16:17)
--- NOTE | 2018-04-28 17:19 | PN ---
Teaching Attending Note Name of Resident: Adriano Salazar ATTENDING PHYSICIAN STATEMENT I saw and evaluated the patient. I reviewed the resident's note and discussed the case with the resident. I agree with the resident's findings and plan as documented. SUBJECTIVE: Patient is lying in bed ,just opens his eyes, otherwise nonverbal. OBJECTIVE: Vital Signs Temperature 97.6 F 04/28/18 14:00 Pulse Rate 64 04/28/18 14:00 Respiratory Rate 20 04/28/18 14:00 Blood Pressure 141/77 04/28/18 14:00 O2 Sat by Pulse Oximetry (%) 100 04/28/18 10:02 Constitutional:non-verbal at baseline Eyes: opens eyes, Conjunctiva Clear, PERRL HENT: WNL, Atraumatic, Normocephalic Neck: Supple, Trachea Midline Cardiovascular: Regular Rate and Rhythm, S1, S2 Respiratory: CTA Bilaterally Gastrointestinal:Normal Bowel Sounds, Soft, Other (G-Tube intact) Renal/: Incontinence Extremities: contractured, pulses are positive Skin: Pressure Ulcer (sacral Stage II) CBCD WBC 6.4 K/mm3 (4.0-10.0) 04/28/18 07:18 RBC 2.82 M/mm3 (4.00-5.60) L 04/28/18 07:18 Hgb 8.2 GM/dL (11.7-16.9) L 04/28/18 07:18 Hct 23.9 % (35.4-49) L 04/28/18 07:18 MCV 84.8 fl (80-96) 04/28/18 07:18 MCHC 34.3 g/dl (32.0-35.9) 04/28/18 07:18 RDW 14.6 % (11.9-15.9) 04/28/18 07:18 Plt Count 214 K/MM3 (134-434) 04/28/18 07:18 MPV 6.8 fl (7.5-11.1) L 04/28/18 07:18 CMP Sodium 128 mmol/L (136-145) L 04/28/18 07:18 Potassium 3.9 mmol/L (3.5-5.1) 04/28/18 07:18 Chloride 89 mmol/L (98-107) L 04/28/18 07:18 Carbon Dioxide 29 mmol/L (21-32) 04/28/18 07:18 Anion Gap 10 MMOL/L (8-16) 04/28/18 07:18 BUN 76 mg/dL (7-18) H 04/28/18 07:18 Creatinine 5.1 mg/dL (0.55-1.3) H 04/28/18 07:18 Creat Clearance w eGFR 10.78 (>60) 04/28/18 07:18 Random Glucose 97 mg/dL (74-106) 04/28/18 07:18 Calcium 8.2 mg/dL (8.5-10.1) L 04/28/18 07:18 Total Bilirubin 0.4 mg/dL (0.2-1) 04/27/18 17:00 AST 47 U/L (15-37) H 04/27/18 17:00 ALT 34 U/L (13-61) 04/27/18 17:00 Alkaline Phosphatase 125 U/L (45-117) H 04/27/18 17:00 Total Protein 6.3 g/dl (6.4-8.2) L 04/27/18 17:00 Albumin 2.9 g/dl (3.4-5.0) L 04/27/18 17:00 CARDIAC ENZYMES Creatine Kinase 62 IU/L (26-308) 04/28/18 07:18 Troponin I < 0.02 ng/ml (0.00-0.05) 04/27/18 17:00 Current Medications Generic Name Dose Route Start Last Admin Trade Name Freq PRN Reason Stop Dose Admin Albuterol/Ipratropium 1 amp 04/28/18 08:00 04/28/18 15:50 Duoneb - NEB 1 amp RQID KRISTY Administration Amlodipine Besylate 10 mg 04/28/18 10:00 04/28/18 10:04 Norvasc - PEG 10 mg DAILY KRISTY Administration Atorvastatin Calcium 10 mg 04/28/18 22:00 Lipitor - NGT HS [facility] Brimonidine Tartrate 1 drop 04/28/18 10:00 04/28/18 10:03 Alphagan 0.2% - OD 1 drop DAILY KRISTY Administration Sodium Chloride 1,000 mls @ 100 mls/hr 04/28/18 16:17 Normal Saline - IV 04/29/18 01:59 ASDIR KRISTY Levetiracetam 500 mg 04/28/18 10:00 04/28/18 10:03 Keppra Oral Solution - PEG 500 mg BID KRISTY Administration Levothyroxine Sodium 50 mcg 04/28/18 06:30 04/28/18 06:41 Synthroid - PEG 50 mcg DAILY@0600 KRISTY Administration Metoprolol Tartrate 50 mg 04/28/18 10:00 04/28/18 10:04 Lopressor - PEG 50 mg BID KRISTY Administration Phenytoin Sodium 100 mg 04/28/18 10:00 04/28/18 10:03 Dilantin Oral Suspension - PEG 100 mg BID KRISTY Administration Ranitidine HCl 150 mg 04/28/18 10:00 04/28/18 10:04 Zantac Oral Solution - PEG 150 mg BID [facility] Administration Timolol Maleate 1 drop 04/28/18 10:00 04/28/18 10:04 Timoptic 0.5% OD 1 drop DAILY KRISTY Administration Home Medications Medication Instructions Recorded Brimonidine Tartrate/Timolol 1 drop OD DAILY 10/01/17 [Combigan 0.2%-0.5% Eye Drops] Atorvastatin Ca [Lipitor] 10 mg NGT HS tablet 04/07/18 Pantoprazole Suspension [Protonix 40 mg PEG DAILY packet 04/07/18 Packets For Oral Suspension -] Amlodipine Besylate [Norvasc -] 10 mg PEG DAILY #30 tablet 04/08/18 Docusate Sodium [Colace -] 100 mg PEG DAILY #60 capsule 04/08/18 Levothyroxine [Synthroid -] 50 mcg PEG DAILY@0600 #0 syr 04/08/18 Losartan Potassium [Cozaar -] 50 mg PEG DAILY #30 tablet 04/08/18 Metoprolol Tartrate [Lopressor -] 50 mg PEG BID #60 tablet 04/08/18 Acetaminophen [Tylenol .Regular 500 mg PEG BID PRN 04/27/18 Strength -] Albuterol 2.5/Ipratropium 0.5 1 neb IH QID 04/27/18 [Duoneb -] Chlorthalidone 25 mg PEG DAILY 04/27/18 Guaifenesin 400 mg NGT BID 04/27/18 Naproxen 250 mg NGT DAILY 04/27/18 Phenytoin Oral Suspension 100 mg PEG BID 04/27/18 [Dilantin Oral Suspension 100 MG/4 ML] Scopolamine 1 each TD ASDIR 04/27/18 levETIRAcetam [Keppra Oral 500 mg PEG BID 04/27/18 Solution -] CT Head- no acute intra or extra axial hemorrhage or collection, chronic microvascular ischemic changes ASSESSMENT AND PLAN: Patient is a 87 year old male with Hx of Hemorrhagic CVA, Seizure disorder, Hypertension, CAD, AAA s/p repair who presented from [place] with seizure activity and found to have MALINDA. #Seizures Disorder on keppra and Phenytoin, Keppra neuro consult , Seizure Precautions, Aspiration precautions # Acute Hyponatremia ON IVF 0.9NS at 100cc/hr x 1 liter. #Acute Kidney injury secondary to obstruction vs. Rhabdo vs. 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 secondary to immobility, wound care dressing according to staging. Turn Q2 hrs. #Failure to Thrive: continue tube feeding, Low Albumin 2.9 # HLD hold Chlorthalidone, Cozaar secondary to MALINDA, continue Norvasc, Lipitor, Lopressor Fall Precautions DVT Px: SCDs, Heparin SQ Code Status: DNR
[2018-04-28 19:57] LABS: ANION GAP 10 MMOL/L (8-16); BLOOD UREA NITROGEN 59 mg/dL (7-18); CALCIUM 8.3 mg/dL (8.5-10.1); CHLORIDE 94 mmol/L (98-107); CO2 29 mmol/L (21-32); CREATININE 3.9 mg/dL (0.55-1.3); GLUCOSE,RANDOM 75 mg/dL (74-106); POTASSIUM 3.7 mmol/L (3.5-5.1); SODIUM 133 mmol/L (136-145)
[2018-04-28] MEDS: ATORVASTATIN CA 10 MG TABLET (FP) NGT SCH (21:54)
--- NOTE | 2018-04-29 02:52 | HOSP ---
Subjective - Review of Symptoms Events since last encounter: Was called to see pt because of skin changes. Pt was found to have blistering of the right shoulder and swollen RUE. pt is nonverbal. On exam, R should has several bullae on the dorsal aspect, approximately .5-1cm , slightly yellow in color. RUE size greater than LUE below the level of the elbow. No mass or fluctuance noted. No erythema. Of note, IV line is placed at RUE distinctly above the region of swelling. Unclear etiology of skin changes. Nurse to change IV to other arm. Physical Examination Vital Signs: Vital Signs Temperature 97.8 F 04/29/18 02:00 Pulse Rate 58 L 04/29/18 02:04 Respiratory Rate 12 04/29/18 02:04 Blood Pressure 138/78 04/29/18 02:04 O2 Sat by Pulse Oximetry (%) 100 04/28/18 20:14 Labs: CBC, BMP 04/28/18 07:18 04/28/18 19:05 Visit type - Emergency Visit Emergency Visit: No - New Patient This patient is new to me today: Yes Date on this admission: 04/29/18 - Critical Care Critical Care patient: Yes Total Critical Care Time (in minutes): 35 Critical Care Statement: The care of this patient involved high complexity decision making to prevent further life threatening deterioration of the patient 's condition and/or to evaluate & treat vital organ system(s) failure or risk of failure.
[2018-04-29] MEDS: LEVOTHYROXINE NA 50 MCG TABLET (FP) PEG SCH (06:26)
[2018-04-29 06:35] LABS: HEMATOCRIT 23.3 % (35.4-49); HEMOGLOBIN 8.1 GM/dL (11.7-16.9); MCH 29.7 pg (25.7-33.7); MCHC 34.9 g/dl (32.0-35.9); MEAN CELL VOLUME 85.1 fl (80-96); PLATELET COUNT 189 K/MM3 (134-434); RBC 2.74 M/mm3 (4.00-5.60); RDW 14.8 % (11.9-15.9); WHITE BLOOD COUNT 5.6 K/mm3 (4.0-10.0)
[2018-04-29 07:02] LABS: ALBUMIN 2.7 g/dl (3.4-5.0); ALK PHOS 122 U/L (45-117); ANION GAP 11 MMOL/L (8-16); BILIRUBIN,TOTAL 0.5 mg/dL (0.2-1); BLOOD UREA NITROGEN 48 mg/dL (7-18); CALCIUM 8.5 mg/dL (8.5-10.1); CHLORIDE 99 mmol/L (98-107); CO2 25 mmol/L (21-32); CREATININE 2.7 mg/dL (0.55-1.3); GLUCOSE,RANDOM 73 mg/dL (74-106); MAGNESIUM 1.7 mg/dL (1.8-2.4); PHOSPHOROUS 3.5 mg/dL (2.5-4.9); POTASSIUM 3.4 mmol/L (3.5-5.1); SGOT/AST 43 U/L (15-37); SGPT/ALT 34 U/L (13-61); SODIUM 135 mmol/L (136-145); TOT PROT 5.8 g/dl (6.4-8.2)
--- NOTE | 2018-04-29 07:57 | PN ---
Physical Exam: SUBJECTIVE: Patient seen and examined at bedside. Eyes are spontaneously open, however patient remains verbally unresponsive and does not follow commands. Patient is saturating 100% on 2L nasal canula. No acute distress, no use of accessory muscles respiration. OBJECTIVE: Vital Signs Period Temp Pulse Resp BP Sys/Michel Pulse Ox Last 24 Hr 97.6 F-98.3 F 57-71 12-20 123-154/53-80 96-100 GENERAL: The patient is in no acute distress, nonverbal. HEAD: Normocephalic. Horizontal scar visualized on left side from prior surgery. EYES: Sclera anicteric, conjunctiva clear. ENT: Oropharynx with multiple erythematous lesions along roof of mouth and tongue. Dry mucous membranes. NECK: Trachea midline, supple. LUNGS: Breath sounds equal, clear to auscultation bilaterally, no wheezes, appreciated. HEART: Regular rate and rhythm, S1, S2 without murmur, rub or gallop. ABDOMEN: Soft, nondistended, normoactive bowel sounds. No hepatosplenomegaly appreciated. EXTREMITIES: 2+ radial pulses, 1+ dorslis pedis pulses b/l. Right hand more swollen than left. IV has been changed to left arm today. SKIN: Warm, dry. 5cm x 2cm lesion noted on anterior left leg. Bandaged scratches along right leg. Stage II sacral ulcer noted. Two vesicles noted along right shoulder, nondraining. Laboratory Results - last 24 hr 04/28/18 04/28/18 04/28/18 07:18 07:18 12:00 WBC RBC Hgb Hct MCV MCH MCHC RDW Plt Count MPV Sodium 128 L Potassium 3.9 Chloride 89 L Carbon Dioxide 29 Anion Gap 10 BUN 76 H Creatinine 5.1 H Creat Clearance w eGFR 10.78 Random Glucose 97 Calcium 8.2 L Phosphorus 5.0 H Magnesium 2.2 Ferritin Total Bilirubin AST ALT Alkaline Phosphatase Creatine Kinase 62 Total Protein Albumin TSH 11.70 H Cancelled Urine Color Urine Appearance Urine pH Ur Specific [place] Urine Protein Urine Glucose (UA) Urine Ketones Urine Blood Urine Nitrite Urine Bilirubin Urine Urobilinogen Ur Leukocyte Esterase Urine WBC (Auto) Urine RBC (Auto) Urine Bacteria U Random Total Protein 17 H Ur Random Sodium 57 Ur Random Urea Nitrogn 341 L Urine Creatinine 41.8 H 04/28/18 04/28/18 04/28/18 12:00 12:00 12:00 WBC RBC Hgb Hct MCV MCH MCHC RDW Plt Count MPV Sodium Potassium Chloride Carbon Dioxide Anion Gap BUN Creatinine Creat Clearance w eGFR Random Glucose Calcium Phosphorus Magnesium Ferritin Total Bilirubin AST ALT Alkaline Phosphatase Creatine Kinase Total Protein Albumin TSH Urine Color Ltyellow Urine Appearance Clear Urine pH 7.0 D Ur Specific [place] 1.009 Urine Protein 1+ H Urine Glucose (UA) Negative Urine Ketones Negative Urine Blood 2+ H Urine Nitrite Negative Urine Bilirubin Negative Urine Urobilinogen Negative Ur Leukocyte Esterase Negative Urine WBC (Auto) 1 Urine RBC (Auto) 10 Urine Bacteria Rare U Random Total Protein Cancelled Ur Random Sodium Ur Random Urea Nitrogn Urine Creatinine Cancelled 04/28/18 04/28/18 04/29/18 12:00 19:05 05:30 WBC RBC Hgb Hct MCV MCH MCHC RDW Plt Count MPV Sodium 133 L 135 L Potassium 3.7 3.4 L Chloride 94 L 99 Carbon Dioxide 29 25 Anion Gap 10 11 BUN 59 H 48 H Creatinine 3.9 H 2.7 H Creat Clearance w eGFR 14.70 22.47 Random Glucose 75 73 L Calcium 8.3 L 8.5 Phosphorus 3.5 Magnesium 1.7 L Ferritin 508.0 H Total Bilirubin 0.5 AST 43 H ALT 34 Alkaline Phosphatase 122 H Creatine Kinase Total Protein 5.8 L Albumin 2.7 L TSH Urine Color Urine Appearance Urine pH Ur Specific [place] Urine Protein Urine Glucose (UA) Urine Ketones Urine Blood Urine Nitrite Urine Bilirubin Urine Urobilinogen Ur Leukocyte Esterase Urine WBC (Auto) Urine RBC (Auto) Urine Bacteria U Random Total Protein Ur Random Sodium Ur Random Urea Nitrogn Cancelled Urine Creatinine 04/29/18 05:30 WBC 5.6 RBC 2.74 L Hgb 8.1 L Hct 23.3 L MCV 85.1 MCH 29.7 MCHC 34.9 RDW 14.8 Plt Count 189 MPV 7.0 L Sodium Potassium Chloride Carbon Dioxide Anion Gap BUN Creatinine Creat Clearance w eGFR Random Glucose Calcium Phosphorus Magnesium Ferritin Total Bilirubin AST ALT Alkaline Phosphatase Creatine Kinase Total Protein Albumin TSH Urine Color Urine Appearance Urine pH Ur Specific [place] Urine Protein Urine Glucose (UA) Urine Ketones Urine Blood Urine Nitrite Urine Bilirubin Urine Urobilinogen Ur Leukocyte Esterase Urine WBC (Auto) Urine RBC (Auto) Urine Bacteria U Random Total Protein Ur Random Sodium Ur Random Urea Nitrogn Urine Creatinine Active Medications Generic Name Dose Route Start Last Admin Trade Name Edwarq PRN Reason Stop Dose Admin Albuterol/Ipratropium 1 amp 04/28/18 08:00 04/28/18 20:35 Duoneb - NEB 1 amp RQID KRISTY Administration Amlodipine Besylate 10 mg 04/28/18 10:00 04/28/18 10:04 Norvasc - PEG 10 mg DAILY KRISTY Administration Atorvastatin Calcium 10 mg 04/28/18 22:00 04/28/18 21:54 Lipitor - NGT 10 mg HS KRISTY Administration Brimonidine Tartrate 1 drop 04/28/18 10:00 04/28/18 10:03 Alphagan 0.2% - OD 1 drop DAILY KRISTY Administration Levetiracetam 500 mg 04/28/18 10:00 04/28/18 21:54 Keppra Oral Solution - PEG 500 mg BID KRISTY Administration Levothyroxine Sodium 50 mcg 04/28/18 06:30 04/29/18 06:26 Synthroid - PEG 50 mcg DAILY@0600 KRISTY Administration Metoprolol Tartrate 50 mg 04/28/18 10:00 04/28/18 21:55 Lopressor - PEG 50 mg BID KRISTY Administration Phenytoin Sodium 100 mg 04/28/18 10:00 04/28/18 21:55 Dilantin Oral Suspension - PEG 100 mg BID KRISTY Administration Ranitidine HCl 150 mg 04/28/18 10:00 04/28/18 21:55 Zantac Oral Solution - PEG 150 mg BID KRISTY Administration Timolol Maleate 1 drop 04/28/18 10:00 04/28/18 10:04 Timoptic 0.5% OD 1 drop DAILY KRISTY Administration IMAGING CT head shows no acute intracranial hemorrhage. Interval decrease in chronic left subdural collection with residual mass effect anterolateral left frontal lobe and 6mm right midline shift. ASSESSMENT/PLAN: Patient is an 87 year old male from [facility] with history of seizures (on Dilantin , and Keppra) presents after witnessed seizure. Patient is nonverbal. Seizure -May be due to subtherapeutic level of anti-epileptics vs. electrolyte imbalance (hyponatremia) -F/U Keppra level -Dilantin 100mg PEG BID -Keppra 500mg PEG BID -F/U Neurology consult (Dr. Stokes) Altered mental status -May be secondary to hyponatremia -Rule out sepsis: F/U blood cultures F/U urine cultures Hyponatremia -Improved. Sodium 135 today (127 upon admission) -Nephrology consult (Dr. Diaz) appreciated. No indicaiton for 3% sodium. Patient received 1L normal saline. -Follow CMP Acute kidney injury -Improving. Creatinine 2.7 (5.1 upon admission) -May be secondary to seizure activity (rhabdomyolisis), vs. dehydration vs anti- epileptics medication -Nephrology consult (Dr. Diaz) appreciated. -Urine studies show: Protein 17, Sodium 57, Urea nitrogen 341, Creatinine 41.8 -Kidney, bladder ultrasound shows atrophic right kidney, mild left hydronephrosis. Thickened bladder, with possible blood clots. Prostatic enlargement. F/U strict intake and output Hypertension -Metoprolol 50mg PEG BID -Norvasc 10mg PEG daily Hyperlipidemia -Atorvastatin 10mg HS Hypothyroidism -Synthroid 50mcg PEG daily FEN -IV normal saline at 62mL/ hour for 12 hours (approx 750mL only). -Hyponatremia. Will follow CMP -Tube feeds reinstated, per foundry operator recommendations. To be held one hour before and one hour after Dilantin. Prophylaxis SCDs b/l lower extremities Disposition Continue care in ICU Visit type - Emergency Visit Emergency Visit: Yes ED Registration Date: 04/27/18 Care time: The patient presented to the Emergency Department on the above date and was hospitalized for further evaluation of their emergent condition. - New Patient This patient is new to me today: No - Critical Care Critical Care patient: Yes Total Critical Care Time (in minutes): 35 Critical Care Statement: The care of this patient involved high complexity decision making to prevent further life threatening deterioration of the patient 's condition and/or to evaluate & treat vital organ system(s) failure or risk of failure. - Discharge Referral [facility]erred to [facility] Med P.C.: No
--- NOTE | 2018-04-29 08:05 | PN ---
Teaching Attending Note Name of Resident: Adriano Salazar ATTENDING PHYSICIAN STATEMENT I saw and evaluated the patient. I reviewed the resident's note and discussed the case with the resident. I agree with the resident's findings and plan as documented. SUBJECTIVE: Patient is better today, more awake. OBJECTIVE: Vital Signs Temperature 98.2 F 04/29/18 06:00 Pulse Rate 57 L 04/29/18 06:00 Respiratory Rate 18 04/29/18 06:00 Blood Pressure 128/53 L 04/29/18 06:00 O2 Sat by Pulse Oximetry (%) 100 04/28/18 20:14 Constitutional:non-verbal at baseline Eyes: opens eyes, Conjunctiva Clear, PERRL HENT: WNL, Atraumatic, Normocephalic Neck: Supple, Trachea Midline Cardiovascular: Regular Rate and Rhythm, S1, S2 Respiratory: CTA Bilaterally Gastrointestinal:Normal Bowel Sounds, Soft, Other (G-Tube intact) Renal/: Incontinence, gross hematuria Extremities: contractured, pulses are positive Skin: Pressure Ulcer (sacral Stage II) CBCD WBC 5.6 K/mm3 (4.0-10.0) 04/29/18 05:30 RBC 2.74 M/mm3 (4.00-5.60) L 04/29/18 05:30 Hgb 8.1 GM/dL (11.7-16.9) L 04/29/18 05:30 Hct 23.3 % (35.4-49) L 04/29/18 05:30 MCV 85.1 fl (80-96) 04/29/18 05:30 MCHC 34.9 g/dl (32.0-35.9) 04/29/18 05:30 RDW 14.8 % (11.9-15.9) 04/29/18 05:30 Plt Count 189 K/MM3 (134-434) 04/29/18 05:30 MPV 7.0 fl (7.5-11.1) L 04/29/18 05:30 CMP Sodium 135 mmol/L (136-145) L 04/29/18 05:30 Potassium 3.4 mmol/L (3.5-5.1) L 04/29/18 05:30 Chloride 99 mmol/L (98-107) 04/29/18 05:30 Carbon Dioxide 25 mmol/L (21-32) 04/29/18 05:30 Anion Gap 11 MMOL/L (8-16) 04/29/18 05:30 BUN 48 mg/dL (7-18) H 04/29/18 05:30 Creatinine 2.7 mg/dL (0.55-1.3) H 04/29/18 05:30 Creat Clearance w eGFR 22.47 (>60) 04/29/18 05:30 Random Glucose 73 mg/dL (74-106) L 04/29/18 05:30 Calcium 8.5 mg/dL (8.5-10.1) 04/29/18 05:30 Total Bilirubin 0.5 mg/dL (0.2-1) 04/29/18 05:30 AST 43 U/L (15-37) H 04/29/18 05:30 ALT 34 U/L (13-61) 04/29/18 05:30 Alkaline Phosphatase 122 U/L (45-117) H 04/29/18 05:30 Total Protein 5.8 g/dl (6.4-8.2) L 04/29/18 05:30 Albumin 2.7 g/dl (3.4-5.0) L 04/29/18 05:30 CARDIAC ENZYMES Creatine Kinase 62 IU/L (26-308) 04/28/18 07:18 Troponin I < 0.02 ng/ml (0.00-0.05) 04/27/18 17:00 Current Medications Generic Name Dose Route Start Last Admin Trade Name Freq PRN Reason Stop Dose Admin Albuterol/Ipratropium 1 amp 04/28/18 08:00 04/28/18 20:35 Duoneb - NEB 1 amp RQID KRISTY Administration Amlodipine Besylate 10 mg 04/28/18 10:00 04/28/18 10:04 Norvasc - PEG 10 mg DAILY KRISTY Administration Atorvastatin Calcium 10 mg 04/28/18 22:00 04/28/18 21:54 Lipitor - NGT 10 mg HS KRISTY Administration Brimonidine Tartrate 1 drop 04/28/18 10:00 04/28/18 10:03 Alphagan 0.2% - OD 1 drop DAILY KRISTY Administration Levetiracetam 500 mg 04/28/18 10:00 04/28/18 21:54 Keppra Oral Solution - PEG 500 mg BID KRISTY Administration Levothyroxine Sodium 50 mcg 04/28/18 06:30 04/29/18 06:26 Synthroid - PEG 50 mcg DAILY@0600 KRISTY Administration Metoprolol Tartrate 50 mg 04/28/18 10:00 04/28/18 21:55 Lopressor - PEG 50 mg BID KRISTY Administration Phenytoin Sodium 100 mg 04/28/18 10:00 04/28/18 21:55 Dilantin Oral Suspension - PEG 100 mg BID KRISTY Administration Ranitidine HCl 150 mg 04/28/18 10:00 04/28/18 21:55 Zantac Oral Solution - PEG 150 mg BID KRISTY Administration Timolol Maleate 1 drop 04/28/18 10:00 04/28/18 10:04 Timoptic 0.5% OD 1 drop DAILY KRISTY Administration Home Medications Medication Instructions Recorded Brimonidine Tartrate/Timolol 1 drop OD DAILY 10/01/17 [Combigan 0.2%-0.5% Eye Drops] Atorvastatin Ca [Lipitor] 10 mg NGT HS tablet 04/07/18 Pantoprazole Suspension [Protonix 40 mg PEG DAILY packet 04/07/18 Packets For Oral Suspension -] Amlodipine Besylate [Norvasc -] 10 mg PEG DAILY #30 tablet 04/08/18 Docusate Sodium [Colace -] 100 mg PEG DAILY #60 capsule 04/08/18 Levothyroxine [Synthroid -] 50 mcg PEG DAILY@0600 #0 syr 04/08/18 Losartan Potassium [Cozaar -] 50 mg PEG DAILY #30 tablet 04/08/18 Metoprolol Tartrate [Lopressor -] 50 mg PEG BID #60 tablet 04/08/18 Acetaminophen [Tylenol .Regular 500 mg PEG BID PRN 04/27/18 Strength -] Albuterol 2.5/Ipratropium 0.5 1 neb IH QID 04/27/18 [Duoneb -] Chlorthalidone 25 mg PEG DAILY 04/27/18 Guaifenesin 400 mg NGT BID 04/27/18 Naproxen 250 mg NGT DAILY 04/27/18 Phenytoin Oral Suspension 100 mg PEG BID 04/27/18 [Dilantin Oral Suspension 100 MG/4 ML] Scopolamine 1 each TD ASDIR 04/27/18 levETIRAcetam [Keppra Oral 500 mg PEG BID 04/27/18 Solution -] Laboratory Tests 04/28/18 04/28/18 04/29/18 07:18 19:05 05:30 Creatinine 5.1 H 3.9 H 2.7 H 04/29/18 16:[address] Head- no acute intra or extra axial hemorrhage or collection, chronic microvascular ischemic changes ASSESSMENT AND PLAN: Patient is a 87 year old male with Hx of Hemorrhagic CVA, Seizure disorder, Hypertension, CAD, AAA s/p repair who presented from [place] with seizure activity and found to have MALINDA. #Acute Kidney injury secondary to obstruction most likely , trend creatinine 5.1--->2.8 today , sotelo catheter in place with gross hematuria. Urolgy is consulted. #Seizures Disorder on keppra and as per neuro to increase the dose of Phenytoin 100mg tid liquid through Gtube, Keppra to keep the same. neuro consult ,Seizure Precautions, Aspiration precautions . as per neuro to repeat eeg . # Acute Hyponatremia ON IVF 0.9NS at 100cc/hr x 1 liter. # Hx of CVA s/p Hematoma Evacuation(02/18/18) #Functional Quadriplegia: Heel protectors, immobility , end-stage dementia #Anemia iron panel studies pending follow #Failure to Thrive: tube feed as per grocery carrier #HTN : continue Norvasc # Sacral Ulcer Stage II. secondary to immobility, wound care dressing according to staging. Turn Q2 hrs. #Failure to Thrive: continue tube feeding, Low Albumin 2.9 # HLD hold Chlorthalidone, Cozaar secondary to MALINDA, continue Norvasc, Lipitor, Lopressor DVT Px: SCDs, Heparin SQ Code Status: DNR, Fall Precautions
[2018-04-29] MEDS: ALBUTEROL SO4 2.5/IPRATROPIUM 0.5 INH SOL 3 ML VIAL.NEB. NEB SCH ×4 (08:10→21:00)
[2018-04-29] MEDS: BRIMONIDINE TARTRATE 0.2% OPHTHALMIC 5 ML BOTTLE OD SCH (09:50)
[2018-04-29] MEDS: TIMOLOL 0.5% OPHTHALMIC SOL 5 ML BOTTLE OD SCH (09:53)
[2018-04-29] MEDS: RANITIDINE HCL 150 MG/10 ML UNIT-DOSE PEG SCH ×2 (09:54→21:31)
[2018-04-29] MEDS: PHENYTOIN 100 MG/4 ML U-D CUP PEG SCH (09:54)
[2018-04-29] MEDS: levETIRAcetam 500 MG/5 ML ORAL SOLUTION (UNIT-DOSE CUPS) PEG SCH ×2 (09:54→21:27)
[2018-04-29] MEDS: amLODIPine BESYLATE 10 MG TABLET (FP) PEG SCH (09:54)
[2018-04-29] MEDS: METOPROLOL TARTRATE 50 MG TABLET (FP) PEG SCH ×2 (09:54→21:30)
--- NOTE | 2018-04-29 10:47 | EKG ---
Test Reason : Blood Pressure : / mmHG Vent. Rate : 084 BPM Atrial Rate : 084 BPM P-R Int : 182 ms QRS Dur : 074 ms QT Int : 352 ms P-R-T Axes : 000 032 036 degrees QTc Int : 415 ms NORMAL SINUS RHYTHM NORMAL ECG WHEN COMPARED WITH ECG OF 20-MAR-2018 09:19, SINUS RHYTHM HAS REPLACED ATRIAL FLUTTER ST NO LONGER DEPRESSED IN INFERIOR LEADS ST NO LONGER DEPRESSED IN ANTERIOR LEADS NONSPECIFIC T WAVE ABNORMALITY NO LONGER EVIDENT IN INFERIOR LEADS Confirmed by José Miguel Quiroga MD ([id number]) on 04/29/2018 10:47:38 AM Referred By: Confirmed By:José Miguel Quiroga MD
[2018-04-29 12:37] VITALS: BMI 23.4
--- NOTE | 2018-04-29 16:00 | PN ---
Progress Note (short form) - Note Progress Note: Renal follow up for MALINDA pt seen and examined in Tele Awake and alert has gross hematuria polyuric overnight on IVF Vital Signs Temperature 98.8 F 04/29/18 13:17 Pulse Rate 68 04/29/18 13:17 Respiratory Rate 15 04/29/18 13:17 Blood Pressure 150/56 L 04/29/18 13:17 O2 Sat by Pulse Oximetry (%) 100 04/29/18 09:00 Intake & Output 04/26/18 04/27/18 04/28/18 04/29/18 23:59 23:59 23:59 23:59 Intake Total 504 Output Total 4800 2450 Balance -4296 -2450 Weight 63.503 kg 63.503 kg 54.431 kg NAD Non-verbal dry MM, No JVD, Neck supple RRR, No M/R CTA (anterior exam) soft abd No overt bladder distension No LE edema, clubbing or cyanosis sotelo with gross hematuria CBC, BMP 04/29/18 05:30 04/29/18 05:30 Current Medications Albuterol/Ipratropium (Duoneb -) 1 amp NEB RQID [facility] Last Admin: 04/29/18 12:05 Dose: 1 amp Amlodipine Besylate (Norvasc -) 10 mg PEG DAILY [facility] Last Admin: 04/29/18 09:54 Dose: 10 mg Atorvastatin Calcium (Lipitor -) 10 mg NGT HS [facility] Last Admin: 04/28/18 21:54 Dose: 10 mg Brimonidine Tartrate (Alphagan 0.2% -) 1 drop OD DAILY [facility] Last Admin: 04/29/18 09:50 Dose: 1 drop Levetiracetam (Keppra Oral Solution -) 500 mg PEG BID [facility] Last Admin: 04/29/18 09:54 Dose: 500 mg Levothyroxine Sodium (Synthroid -) 50 mcg PEG DAILY@0600 [facility] Last Admin: 04/29/18 06:26 Dose: 50 mcg Metoprolol Tartrate (Lopressor -) 50 mg PEG BID [facility] Last Admin: 04/29/18 09:54 Dose: 50 mg Phenytoin Sodium (Dilantin Oral Suspension -) 100 mg PEG BID [facility] Last Admin: 04/29/18 09:54 Dose: 100 mg Ranitidine HCl (Zantac Oral Solution -) 150 mg PEG BID [facility] Last Admin: 04/29/18 09:54 Dose: 150 mg Timolol Maleate (Timoptic 0.5%) 1 drop OD DAILY [facility] Last Admin: 04/29/18 09:53 Dose: 1 drop 87 year old male with Hx of Hemorrhagic CVA, Seizure disorder, Hypertension, CAD, AAA s/p repair who presnted from [place] with seizure activity and found to have MALINDA. #Acute Kidney injury secondary to obstruction #Seizures #Hyponatremia in setting fo renal failure w/o overt fluid overload #Anemia Renal function improving s/p sotelo placement pt is polyuric s/p relief of obstruction continue NS but increase rate to 125cc per hour trend BMP and CBC Q12h supplement K to > 3.5 avoid nephrotoxins, IV contrast Urology consult start Flomax intermittent Sotelo clamping to prevent further bladder hemorrhage Thank you Jay Diaz DO
--- NOTE | 2018-04-29 17:08 | CON.NEURO ---
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 No: AFIB, Aneurysm, Aortic Insufficiency, Aortic Stenosis, CHF, Deep Vein Thrombosis, DC, Mitral Insufficiency, Mitral Stenosis, Murmur, Pulmonary Hypertension Pulmonary: Yes: Pneumonia Gastrointestinal: Yes: Irritable Bowel Disease Musculoskeletal: Yes: Chronic low back pain (with radiculopathy) Rheumatology: Yes: Gout, Other (Polymyalgia Rheumatica) Endocrine: Yes: Hypothyroidism. No: Brandt's Disease, Archie's Disease, Diabetes Insipidus, Diabetes Mellitus, Hyperparathyroidism, Hyperthyroidism, Osteopenia, SIADH, Other - Past Surgical History Past Surgical History: Yes: Appendectomy, CABG ([facility]), Tonsillectomy. No: None, AAA Repair, AICD, Amputation, Arthrosocopy, AV Fistula/Graft, Bariatric Surgery , Breast Biopsy, Bypass, Carotid Endarterectomy, Cataract Removal, Cholecystectomy, Colectomy, Colonoscopy, Colostomy, Craniotomy, , Cystectomy, Hernia Repair, Hysterectomy, Ileal Conduit, Ileosotomy, Joint Replacement, Kidney Transplant, Laminectomy, Liver Transplant, Mastectomy, Nephrectomy, Oopherectomy, Orchiectomy, Permanent Pacemaker, Prostatectomy, Splenectomy, Stent, Thoracotomy, TURP, Tubal Ligation, Upper Endoscopy, Valve Replacement, Vasectomy, Vein Stripping/Ligation - Alcohol/Substance Use Hx Alcohol Use: No - Smoking History Smoking history: Unknown if ever smoked Have you smoked in the past 12 months: No Aproximately how many cigarettes per day: 0 - Social History ADL: Support Services History of Recent Travel: No Home Medications - Allergies Allergies/Adverse Reactions: Allergies Allergy/AdvReac Type Severity Reaction Status Date / Time No Known Allergies Allergy Verified 04/27/18 16:40 - Home Medications Home Medications: Ambulatory Orders Brimonidine Tartrate/Timolol [Combigan 0.2%-0.5% Eye Drops] 1 drop OD DAILY 01/13 Atorvastatin Ca [Lipitor] 10 mg NGT HS tablet 04/07/18 Pantoprazole Suspension [Protonix Packets For Oral Suspension -] 40 mg PEG DAILY packet 04/07/18 Amlodipine Besylate [Norvasc -] 10 mg PEG DAILY #30 tablet 04/08/18 Docusate Sodium [Colace -] 100 mg PEG DAILY #60 capsule 04/08/18 Levothyroxine [Synthroid -] 50 mcg PEG DAILY@0600 #0 syr 04/08/18 Losartan Potassium [Cozaar -] 50 mg PEG DAILY #30 tablet 04/08/18 Metoprolol Tartrate [Lopressor -] 50 mg PEG BID #60 tablet 04/08/18 Acetaminophen [Tylenol .Regular Strength -] 500 mg PEG BID PRN 04/27/18 Albuterol 2.5/Ipratropium 0.5 [Duoneb -] 1 neb IH QID 04/27/18 Chlorthalidone 25 mg PEG DAILY 04/27/18 Guaifenesin 400 mg NGT BID 04/27/18 Naproxen 250 mg NGT DAILY 04/27/18 Phenytoin Oral Suspension [Dilantin Oral Suspension 100 MG/4 ML] 100 mg PEG BID 04/27/18 Scopolamine 1 each TD ASDIR 04/27/18 levETIRAcetam [Keppra Oral Solution -] 500 mg PEG BID 04/27/18 Physical Exam-Neuro Vital Signs: Vital Signs Temperature 98.8 F 04/29/18 13:17 Pulse Rate 68 04/29/18 13:17 Respiratory Rate 15 04/29/18 13:17 Blood Pressure 150/56 L 04/29/18 13:17 O2 Sat by Pulse Oximetry (%) 100 04/29/18 09:00 Labs: CBC, BMP 04/29/18 05:30 04/29/18 05:30 Assessment/Plan deepika Chief Complaint: Seizure Activity History of Present Illness: cc Breakthrough seizure HPI 87 year old man known to me , He has history of seizure following subdural hemato evacuation. It was evacuated twice. Patient also have history of CKD, Stroke, cabg, ibs, peg tube placement. He has breakthrough seizure and his dilantin level was low and he was given loaded dose. He appears to be in his baseline and no seizure since admission. His kidney function and Na has been improving. PMH as above ROS , FH, Surgical History Reviewed in chart NKDA Allergies Allergy/AdvReac Type Severity Reaction Status Date / Time No Known Allergies Allergy Verified 04/27/18 16:40 - Home Medications Home Medications: Ambulatory Orders Brimonidine Tartrate/Timolol [Combigan 0.2%-0.5% Eye Drops] 1 drop OD DAILY 01/13 Atorvastatin Ca [Lipitor] 10 mg NGT HS tablet 04/07/18 Pantoprazole Suspension [Protonix Packets For Oral Suspension -] 40 mg PEG DAILY packet 04/07/18 Amlodipine Besylate [Norvasc -] 10 mg PEG DAILY #30 tablet 04/08/18 Docusate Sodium [Colace -] 100 mg PEG DAILY #60 capsule 04/08/18 Levothyroxine [Synthroid -] 50 mcg PEG DAILY@0600 #0 syr 04/08/18 Losartan Potassium [Cozaar -] 50 mg PEG DAILY #30 tablet 04/08/18 Metoprolol Tartrate [Lopressor -] 50 mg PEG BID #60 tablet 04/08/18 Acetaminophen [Tylenol .Regular Strength -] 500 mg PEG BID PRN 04/27/18 Albuterol 2.5/Ipratropium 0.5 [Duoneb -] 1 neb IH QID 04/27/18 Chlorthalidone 25 mg PEG DAILY 04/27/18 Guaifenesin 400 mg NGT BID 04/27/18 Naproxen 250 mg NGT DAILY 04/27/18 Phenytoin Oral Suspension [Dilantin Oral Suspension 100 MG/4 ML] 100 mg PEG BID 04/27/18 Scopolamine 1 each TD ASDIR 04/27/18 levETIRAcetam [Keppra Oral Solution -] 500 mg PEG BID 04/27/18 NEUROLOGICAL EXAMINATION: He is remain comfortable, would open eye, non verbal and not following command, There is no twitching or seizure activity was seen He opens to pain to painful stimuli pupils are small and left side there is eivdence of old surgery ? glaucoma Ct Head is no acute findings Assessment : Breakthrough seizure seems to be induced by Hyponatremia and MALINDA, Clinically does not appears to be in status Plan: repeat eeg and increase dose of dilantin to 100 mg liquid tid, continue same dose of keppra for now Thank you so much Ashwin Stokes MD
[2018-04-29] MEDS ORDERED: POTASSIUM CHLORIDE 20 MEQ PREMIX IVPB 100 ML IVPB ONE (17:25)
[2018-04-29] MEDS ORDERED: SODIUM CHLORIDE 1,000 ML IV SCH (17:30)
[2018-04-29] MEDS: KCL 10 MEQ IVPB 10 MEQ/100 ML INFUS.BAG IVPB SCH (17:40)
[2018-04-29 17:43] LABS: BASO % 0.8 % (0-2.0); EOS % 18.3 % (0-4.5); HEMOGLOBIN 8.8 GM/dL (11.7-16.9); LYMPH % 17.9 % (8-40); MCH 29.2 pg (25.7-33.7); MONO % 11.9 % (3.8-10.2); NEUT % 51.1 % (42.8-82.8); PLATELET COUNT 234 K/MM3 (134-434); RBC 3.02 M/mm3 (4.00-5.60); RDW 14.5 % (11.9-15.9); WHITE BLOOD COUNT 7.2 K/mm3 (4.0-10.0)
[2018-04-29 18:02] LABS: ANION GAP 10 MMOL/L (8-16); BLOOD UREA NITROGEN 49 mg/dL (7-18); CALCIUM 8.1 mg/dL (8.5-10.1); CHLORIDE 99 mmol/L (98-107); CO2 27 mmol/L (21-32); CREATININE 2.8 mg/dL (0.55-1.3); GLUCOSE,RANDOM 74 mg/dL (74-106); POTASSIUM 3.5 mmol/L (3.5-5.1); SODIUM 135 mmol/L (136-145)
[2018-04-29] MEDS: PHENYTOIN ORAL SUSP 125 MG/5 ML PO SCH (21:23)
[2018-04-29] MEDS: ATORVASTATIN CA 10 MG TABLET (FP) NGT SCH (21:30)
[2018-04-30] MEDS: PHENYTOIN ORAL SUSP 125 MG/5 ML PO SCH ×3 (05:55→21:46)
[2018-04-30] MEDS: LEVOTHYROXINE NA 50 MCG TABLET (FP) PEG SCH (05:56)
[2018-04-30 06:37] LABS: HEMATOCRIT 23.9 % (35.4-49); HEMOGLOBIN 8.3 GM/dL (11.7-16.9); MCH 29.5 pg (25.7-33.7); MCHC 34.6 g/dl (32.0-35.9); MEAN CELL VOLUME 85.4 fl (80-96); PLATELET COUNT 211 K/MM3 (134-434); RDW 14.4 % (11.9-15.9); WHITE BLOOD COUNT 6.4 K/mm3 (4.0-10.0)
[2018-04-30 06:46] LABS: ALBUMIN 2.6 g/dl (3.4-5.0); ALK PHOS 116 U/L (45-117); ANION GAP 10 MMOL/L (8-16); BILIRUBIN,TOTAL 0.3 mg/dL (0.2-1); BLOOD UREA NITROGEN 39 mg/dL (7-18); CALCIUM 7.9 mg/dL (8.5-10.1); CHLORIDE 104 mmol/L (98-107); CO2 25 mmol/L (21-32); CREATININE 2.1 mg/dL (0.55-1.3); GLUCOSE,RANDOM 119 mg/dL (74-106); MAGNESIUM 1.7 mg/dL (1.8-2.4); PHOSPHOROUS 3.1 mg/dL (2.5-4.9); POTASSIUM 3.5 mmol/L (3.5-5.1); SGOT/AST 35 U/L (15-37); SGPT/ALT 30 U/L (13-61); SODIUM 139 mmol/L (136-145); TOT PROT 5.5 g/dl (6.4-8.2)
[2018-04-30] MEDS: ALBUTEROL SO4 2.5/IPRATROPIUM 0.5 INH SOL 3 ML VIAL.NEB. NEB SCH ×4 (07:45→21:00)
[2018-04-30 08:08] LABS: SERUM IRON SATURATION 36 % (15-55); TOTAL IRON BINDING CAPACITY 182 ug/dL (250-450); UIBC 117 ug/dL (111-343)
--- NOTE | 2018-04-30 08:35 | PN ---
Progress Note (short form) - Note Progress Note: 87 year old man known to me , He has history of seizure following subdural hemato evacuation. It was evacuated twice. Patient also have history of CKD, Stroke, cabg, ibs, peg tube placement. He has breakthrough seizure and his dilantin level was low and he was given loaded dose. He appears to be in his baseline and no seizure since admission. His kidney function and Na has been improving. No more seizure, since admission and he seems to brighter and opens eyes and not able to communicate NEUROLOGICAL EXAMINATION: He is remain comfortable, would open eye, would have eye contact. not able to follow command, There is no twitching or seizure activity was seen He opens to pain to painful stimuli pupils are small and left side there is eivdence of old surgery ? glaucoma Ct Head is no acute findings Assessment/PLan : Breakthrough seizure seems to be induced by Hyponatremia and MALINDA, Clinically does not appears to be in status. dilantin was increased yeterday, waiting for eeg . Continue current dose of keppra and dilantin 100 mg tid Thanking you so much, would continue to follwo with primary. Thank you so much Ashwin Stokes MD
[2018-04-30] MEDS: TIMOLOL 0.5% OPHTHALMIC SOL 5 ML BOTTLE OD SCH (10:20)
[2018-04-30] MEDS: METOPROLOL TARTRATE 50 MG TABLET (FP) PEG SCH ×3 (10:22→21:46)
[2018-04-30] MEDS: amLODIPine BESYLATE 10 MG TABLET (FP) PEG SCH (10:22)
[2018-04-30] MEDS: RANITIDINE HCL 150 MG/10 ML UNIT-DOSE PEG SCH ×2 (10:22→21:46)
[2018-04-30] MEDS: levETIRAcetam 500 MG/5 ML ORAL SOLUTION (UNIT-DOSE CUPS) PEG SCH ×2 (10:23→21:49)
[2018-04-30] MEDS: BRIMONIDINE TARTRATE 0.2% OPHTHALMIC 5 ML BOTTLE OD SCH (10:24)
--- NOTE | 2018-04-30 13:04 | PN ---
Progress Note (short form) - Note Progress Note: Renal follow up for MALINDA pt seen and examined in Tele sleeping no overnight events making urine via sotelo now less bloody Vital Signs Temperature 98.2 F 04/30/18 02:00 Pulse Rate 59 L 04/30/18 08:36 Respiratory Rate 16 04/30/18 10:00 Blood Pressure 153/59 L 04/30/18 08:36 O2 Sat by Pulse Oximetry (%) 100 04/30/18 10:00 Intake & Output 04/27/18 04/28/18 04/29/18 04/30/18 23:59 23:59 23:59 23:59 Intake Total 504 480 980 Output Total 4800 4450 400 Balance -4296 -3970 580 Weight 63.503 kg 63.503 kg 54.431 kg 54.97 kg NAD RRR, No M/R CTA (anterior exam) soft abd No overt bladder distension No LE edema, clubbing or cyanosis sotelo with some hematuria CBC, BMP 04/30/18 05:30 04/30/18 05:30 Current Medications Albuterol/Ipratropium (Duoneb -) 1 amp NEB RQID [facility] Last Admin: 04/29/18 21:00 Dose: 1 amp Amlodipine Besylate (Norvasc -) 10 mg PEG DAILY [facility] Last Admin: 04/30/18 10:22 Dose: 10 mg Atorvastatin Calcium (Lipitor -) 10 mg NGT HS [facility] Last Admin: 04/29/18 21:30 Dose: 10 mg Brimonidine Tartrate (Alphagan 0.2% -) 1 drop OD DAILY [facility] Last Admin: 04/30/18 10:24 Dose: 1 drop Levetiracetam (Keppra Oral Solution -) 500 mg PEG BID [facility] Last Admin: 04/30/18 10:23 Dose: 500 mg Levothyroxine Sodium (Synthroid -) 50 mcg PEG DAILY@0600 [facility] Last Admin: 04/30/18 05:56 Dose: 50 mcg Metoprolol Tartrate (Lopressor -) 50 mg PEG BID [facility] Last Admin: 04/30/18 10:30 Dose: Not Given Phenytoin Sodium (Dilantin Oral Suspension -) 100 mg PO TID [facility] Last Admin: 04/30/18 05:55 Dose: 100 mg Ranitidine HCl (Zantac Oral Solution -) 150 mg PEG BID [facility] Last Admin: 04/30/18 10:22 Dose: 150 mg Timolol Maleate (Timoptic 0.5%) 1 drop OD DAILY [facility] Last Admin: 04/30/18 10:20 Dose: 1 drop 87 year old male with Hx of Hemorrhagic CVA, Seizure disorder, Hypertension, CAD, AAA s/p repair who presnted from [place] with seizure activity and found to have MALINDA. #Acute Kidney injury secondary to obstruction #Seizures #Hyponatremia in setting fo renal failure w/o overt fluid overload #Anemia Renal function improving s/p sotelo placement change IVF to 1/2 NS at 83cc per hour trend Renal function, Hgb Urology consult Trend renal function and electrolytes Thank you Jay Diaz DO
[2018-04-30] MEDS: SODIUM CHLORIDE 0.45%/POT 20 MEQ/1,000 ML INFUS.BAG IV SCH (13:56)
--- NOTE | 2018-04-30 17:55 | PN ---
Physical Exam: SUBJECTIVE: Patient seen and examined at bedside. Eyes are spontaneously open, however patient remains verbally unresponsive and does not follow commands. Patient is saturating 100% on 3L nasal canula. No acute distress, no use of accessory muscles respiration. OBJECTIVE: Vital Signs Period Temp Pulse Resp BP Sys/Michel Pulse Ox Last 24 Hr 97.7 F-98.9 F 54-66 11-17 121-159/41-64 100-100 GENERAL: The patient is in no acute distress, nonverbal. HEAD: Normocephalic. Horizontal scar visualized on left side from prior surgery. EYES: Sclera anicteric, conjunctiva clear. ENT: Oropharynx with multiple erythematous lesions along roof of mouth and tongue. Dry mucous membranes. NECK: Trachea midline, supple. LUNGS: Breath sounds equal, clear to auscultation bilaterally, no wheezes, appreciated. HEART: Regular rate and rhythm, S1, S2 without murmur, rub or gallop. ABDOMEN: Soft, nondistended, normoactive bowel sounds. No hepatosplenomegaly appreciated. NEUROLOGICAL: No facial assymmetry noted. Biceps reflex 2+ left and 1+ right. Patellar reflex 2+ right, 1+ left. Increased tone with resistance ot passive movement in left upper extremity compared to right, and left lower extremity compared to left. EXTREMITIES: 2+ radial pulses, 1+ dorslis pedis pulses b/l. Right hand more swollen than left. IV has been changed to left arm today. SKIN: Warm, dry. 5cm x 2cm lesion noted on anterior left leg. Bandaged scratches along right leg. Stage II sacral ulcer noted. Two vesicles noted along right shoulder, nondraining. Laboratory Results - last 24 hr 04/27/18 04/29/18 04/29/18 17:31 05:30 16:51 WBC RBC Hgb Hct MCV MCH MCHC RDW Plt Count MPV Absolute Neuts (auto) Neutrophils % Lymphocytes % Monocytes % Eosinophils % Basophils % Nucleated RBC % Sodium 135 L Potassium 3.5 Chloride 99 Carbon Dioxide 27 Anion Gap 10 BUN 49 H Creatinine 2.8 H Creat Clearance w eGFR 21.54 Random Glucose 74 Calcium 8.1 L Phosphorus Magnesium Iron 65 TIBC 182 L Iron Saturation 36 Transferrin 136 L Ferritin Total Bilirubin AST ALT Alkaline Phosphatase Total Protein Albumin Levetiracetam 4.3 L 04/29/18 04/30/1818 16:51 05:30 05:30 WBC 7.2 6.4 RBC 3.02 L 2.80 L Hgb 8.8 L 8.3 L Hct 26.0 L 23.9 L MCV 86.0 85.4 MCH 29.2 29.5 MCHC 34.0 34.6 RDW 14.5 14.4 Plt Count 234 D 211 MPV 7.0 L 7.0 L Absolute Neuts (auto) 3.7 Neutrophils % 51.1 Lymphocytes % 17.9 Monocytes % 11.9 H Eosinophils % 18.3 H Basophils % 0.8 Nucleated RBC % 0 Sodium 139 Potassium 3.5 Chloride 104 Carbon Dioxide 25 Anion Gap 10 BUN 39 H Creatinine 2.1 H Creat Clearance w eGFR 30.02 Random Glucose 119 H Calcium 7.9 L Phosphorus 3.1 Magnesium 1.7 L Iron TIBC Iron Saturation Transferrin Ferritin 442.0 H Total Bilirubin 0.3 AST 35 ALT 30 Alkaline Phosphatase 116 Total Protein 5.5 L Albumin 2.6 L Levetiracetam 04/30/18 05:30 WBC RBC Hgb Hct MCV MCH MCHC RDW Plt Count MPV Absolute Neuts (auto) Neutrophils % Lymphocytes % Monocytes % Eosinophils % Basophils % Nucleated RBC % Sodium Potassium Chloride Carbon Dioxide Anion Gap BUN Creatinine Creat Clearance w eGFR Random Glucose Calcium Phosphorus Magnesium Iron TIBC Iron Saturation Transferrin Ferritin Cancelled Total Bilirubin AST ALT Alkaline Phosphatase Total Protein Albumin Levetiracetam Active Medications Generic Name Dose Route Start Last Admin Trade Name Freq PRN Reason Stop Dose Admin Albuterol/Ipratropium 1 amp 04/28/18 08:00 04/30/18 15:35 Duoneb - NEB 1 amp RQID KRISTY Administration Amlodipine Besylate 10 mg 04/28/18 10:00 04/30/18 10:22 Norvasc - PEG 10 mg DAILY KRISTY Administration Atorvastatin Calcium 10 mg 04/28/18 22:00 04/29/18 21:30 Lipitor - NGT 10 mg HS KRISTY Administration Brimonidine Tartrate 1 drop 04/28/18 10:00 04/30/18 10:24 Alphagan 0.2% - OD 1 drop DAILY KRISTY Administration Potassium Chloride/Sodium Chloride 20 meq in 1,000 mls @ 83 mls/hr 04/30/18 13 :15 10/03/18 13:56 1/2ns+20meq Kcl IV 83 mls/hr ASDIR KRISTY Administration Levetiracetam 500 mg 04/28/18 10:00 04/30/18 10:23 Keppra Oral Solution - PEG 500 mg BID KRISTY Administration Levothyroxine Sodium 50 mcg 04/28/18 06:30 04/30/18 05:56 Synthroid - PEG 50 mcg DAILY@0600 KRISTY Administration Metoprolol Tartrate 50 mg 04/28/18 10:00 04/30/18 10:30 Lopressor - PEG Not Given BID KRISTY Phenytoin Sodium 100 mg 04/29/18 22:00 04/30/18 13:57 Dilantin Oral Suspension - PO 100 mg TID KRISTY Administration Ranitidine HCl 150 mg 04/28/18 10:00 04/30/18 10:22 Zantac Oral Solution - PEG 150 mg BID KRISTY Administration Timolol Maleate 1 drop 04/28/18 10:00 04/30/18 10:20 Timoptic 0.5% OD 1 drop DAILY KRISTY Administration IMAGING CT head shows no acute intracranial hemorrhage. Interval decrease in chronic left subdural collection with residual mass effect anterolateral left frontal lobe and 6mm right midline shift. ASSESSMENT/PLAN: Patient is an 87 year old male from [facility] with history of seizures (on Dilantin , and Keppra) presents after witnessed seizure. Patient is nonverbal. Seizure -May be due to subtherapeutic level of anti-epileptics vs. electrolyte imbalance (hyponatremia) -F/U Keppra level -Dilantin 100mg PEG TID dose increased with Neurology recommendation. -Keppra 500mg PEG BID -Neurology consult (Dr. Stokes) appreciated: Seizure likely secondary to hyponatremia. Altered mental status -May be secondary to hyponatremia -Rule out sepsis: -Blood cultures negative for growth at 24 hours -Urine cultures negative for growth Hyponatremia -Improved. Sodium 139 today (127 upon admission) -Nephrology consult (Dr. Diaz) appreciated. No indicaiton for 3% sodium. Patient receiving half-normal saline. -Follow CMP Acute kidney injury -Improving. Creatinine 2.1 (5.1 upon admission) -May be secondary to seizure activity (rhabdomyolisis), vs. dehydration vs anti- epileptics medication -Nephrology consult (Dr. Diaz) appreciated. -Urine studies show: Protein 17, Sodium 57, Urea nitrogen 341, Creatinine 41.8 -Kidney, bladder ultrasound shows atrophic right kidney, mild left hydronephrosis. Thickened bladder, with possible blood clots. Prostatic enlargement. F/U strict intake and output Hypertension -Metoprolol 50mg PEG BID -Norvasc 10mg PEG daily Hyperlipidemia -Atorvastatin 10mg HS Hypothyroidism -Synthroid 50mcg PEG daily FEN -IV half-normal saline at 83mL/ hour -Will follow CMP -Tube feeds reinstated, per drapery head former recommendations. To be held one hour before and one hour after Dilantin. Prophylaxis SCDs b/l lower extremities Ranitidine 150mg PEG BID Disposition Continue care in ICU. Discharge pending acceptance at [facility] Visit type - Emergency Visit Emergency Visit: Yes ED Registration Date: 04/27/18 Care time: The patient presented to the Emergency Department on the above date and was hospitalized for further evaluation of their emergent condition. - New Patient This patient is new to me today: No - Critical Care Critical Care patient: Yes Total Critical Care Time (in minutes): 35 Critical Care Statement: The care of this patient involved high complexity decision making to prevent further life threatening deterioration of the patient 's condition and/or to evaluate & treat vital organ system(s) failure or risk of failure. - Discharge Referral Referred to [facility] No
--- NOTE | 2018-04-30 18:59 | PN ---
Teaching Attending Note Name of Resident: Adriano Salazar ATTENDING PHYSICIAN STATEMENT I saw and evaluated the patient. I reviewed the resident's note and discussed the case with the resident. I agree with the resident's findings and plan as documented. SUBJECTIVE: No events . non verbal OBJECTIVE NAD , L pupil is deformed and bigger than R. CV: RRr Lungs : decreased breath sounds at bases Ext : no edema skin : Stage 2 decub ulcers on R buttock . no discharge pink urine in sotelo ASSESSMENT AND PLAN: 87 y/o man with h/o dementia , non verbal, hemorrhagic CVA, seizure disorder , HTN , AAA s/p repair, and other medical problems who presented with seizure . he was found to have MALINDA due to retention 1- Seizure: cont dilantin and keppra 2- MALINDA : 2/2 obstructive uropathy . cont IVF and sotelo . hold cozaar and chlorthalidone 3- functional quadriplegia 4- HTN : cont norvasc dispo: HLOC . possible dc in 1-2 days
[2018-04-30] MEDS ORDERED: PT OWN MED DRAWER 7, Y5N ONE ×2 (20:42→22:04)
[2018-04-30] MEDS: ATORVASTATIN CA 10 MG TABLET (FP) NGT SCH (21:46)
[2018-05-01] MEDS ORDERED: PT OWN MED DRAWER 7, Y5N ONE ×2 (04:42→10:30)
[2018-05-01] MEDS: PHENYTOIN ORAL SUSP 125 MG/5 ML PO SCH ×2 (05:27→13:54)
[2018-05-01] MEDS: LEVOTHYROXINE NA 50 MCG TABLET (FP) PEG SCH (05:27)
[2018-05-01 06:37] LABS: BASO % 0.6 % (0-2.0); EOS % 18.2 % (0-4.5); HEMATOCRIT 25.4 % (35.4-49); HEMOGLOBIN 8.7 GM/dL (11.7-16.9); LYMPH % 19.5 % (8-40); MCH 29.3 pg (25.7-33.7); MCHC 34.2 g/dl (32.0-35.9); MEAN CELL VOLUME 85.6 fl (80-96); MEAN PLT VOLUME 6.5 fl (7.5-11.1); MONO % 10.3 % (3.8-10.2); NEUT % 51.4 % (42.8-82.8); PLATELET COUNT 207 K/MM3 (134-434); RBC 2.97 M/mm3 (4.00-5.60); RDW 14.7 % (11.9-15.9); WHITE BLOOD COUNT 9.1 K/mm3 (4.0-10.0)
[2018-05-01 07:03] LABS: ALBUMIN 2.8 g/dl (3.4-5.0); ALK PHOS 124 U/L (45-117); ANION GAP 9 MMOL/L (8-16); BILIRUBIN,TOTAL 0.2 mg/dL (0.2-1); BLOOD UREA NITROGEN 25 mg/dL (7-18); CALCIUM 7.9 mg/dL (8.5-10.1); CHLORIDE 100 mmol/L (98-107); CO2 29 mmol/L (21-32); CREATININE 1.4 mg/dL (0.55-1.3); GLUCOSE,RANDOM 100 mg/dL (74-106); POTASSIUM 3.4 mmol/L (3.5-5.1); SGOT/AST 34 U/L (15-37); SGPT/ALT 30 U/L (13-61); SODIUM 138 mmol/L (136-145); TOT PROT 6.1 g/dl (6.4-8.2)
[2018-05-01] MEDS ORDERED: KCL 10 MEQ IVPB 10 MEQ/100 ML INFUS.BAG IVPB SCH (07:30)
[2018-05-01] MEDS: ALBUTEROL SO4 2.5/IPRATROPIUM 0.5 INH SOL 3 ML VIAL.NEB. NEB SCH ×2 (08:00→11:30)
--- NOTE | 2018-05-01 09:02 | PN ---
Progress Note (short form) - Note Progress Note: Mr Donta Kamara , 87 year old man known to me , He has history of seizure following subdural hemato evacuation. It was evacuated twice. Patient also have history of CKD,Stroke, cabg, ibs, peg tube placement. He has breakthrough seizure and his dilantin level was low and he was given loaded dose. He appears to be in his baseline and no seizure since admission. His kidney function and Na has been improving. He seems to be more alert and try to talk NEUROLOGICAL EXAMINATION: He is remain comfortable, would open eye, would have eye contact. He is trying ot talk , There is no twitching or seizure activity was seen pupils are small and left side there is eivdence of old surgery ? glaucoma Ct Head is no acute findings Assessment/PLan : Breakthrough seizure seems to be induced by Hyponatremia and MALINDA, C dilantin was increased yeterday, waiting for eeg . Continue current dose of keppra and dilantin 100 mg tid Continue current dose, and waiting for EEG Thank you so much Ashwin Stokes MD
[2018-05-01] MEDS: BRIMONIDINE TARTRATE 0.2% OPHTHALMIC 5 ML BOTTLE OD SCH (10:31)
[2018-05-01] MEDS: METOPROLOL TARTRATE 50 MG TABLET (FP) PEG SCH (10:33)
[2018-05-01] MEDS: levETIRAcetam 500 MG/5 ML ORAL SOLUTION (UNIT-DOSE CUPS) PEG SCH (10:33)
[2018-05-01] MEDS: TIMOLOL 0.5% OPHTHALMIC SOL 5 ML BOTTLE OD SCH (10:34)
[2018-05-01] MEDS: amLODIPine BESYLATE 10 MG TABLET (FP) PEG SCH (10:34)
[2018-05-01] MEDS: RANITIDINE HCL 150 MG/10 ML UNIT-DOSE PEG SCH (10:35)
[2018-05-01 13:33] VITALS: BP 108/78; PULSE 72; TEMP 97.8
--- NOTE | 2018-05-01 13:35 | PN ---
Teaching Attending Note Name of Resident: Adriano Salazar ATTENDING PHYSICIAN STATEMENT I saw and evaluated the patient. I reviewed the resident's note and discussed the case with the resident. I agree with the resident's findings and plan as documented. SUBJECTIVE: No events over night OBJECTIVE: NAD , L pupil is deformed and bigger than R. CV: RRR Lungs : decreased breath sounds at bases Ext : no edema skin : Stage 2 decub ulcers on R buttock . no discharge yellow urine in sotelo ASSESSMENT AND PLAN: 87 y/o man with h/o dementia , non verbal, hemorrhagic CVA, seizure disorder , HTN , AAA s/p repair, and other medical problems who presented with seizure . he was found to have MALINDA due to retention 1- Seizure: cont dilantin and keppra 2- MALINDA : 2/2 obstructive uropathy . cont sotelo . Cr improved hold cozaar and chlorthalidone 3- functional quadriplegia 4- HTN : cont norvasc dispo: dc is pending insurance auth
[2018-05-01] MEDS: SODIUM CHLORIDE 0.45%/POT 20 MEQ/1,000 ML INFUS.BAG IV SCH (13:53)
--- NOTE | 2018-05-01 14:26 | PN ---
Progress Note (short form) - Note Progress Note: Renal follow up for MALINDA pt seen and examined in Tele awake but non-verbal no overnight events making urine via sotelo Vital Signs Temperature 97.8 F 05/01/18 13:32 Pulse Rate 72 05/01/18 13:32 Respiratory Rate 15 05/01/18 13:32 Blood Pressure 108/78 05/01/18 13:32 O2 Sat by Pulse Oximetry (%) 100 05/01/18 09:00 Intake & Output 04/28/18 04/29/18 04/30/18 05/01/18 23:59 23:59 23:59 23:59 Intake Total 458 552 9221 790 Output Total 4800 4450 2500 1400 Balance -4296 -3970 677 -610 Weight 63.503 kg 54.431 kg 54.97 kg 53.388 kg NAD soft abd sotelo with yellow urine CBC, BMP 05/01/18 05:30 05/01/18 05:30 Current Medications Albuterol/Ipratropium (Duoneb -) 1 amp NEB RQID [facility] Last Admin: 05/01/18 11:30 Dose: 1 amp Amlodipine Besylate (Norvasc -) 10 mg PEG DAILY [facility] Last Admin: 05/01/18 10:34 Dose: 10 mg Atorvastatin Calcium (Lipitor -) 10 mg NGT HS [facility] Last Admin: 04/30/18 21:46 Dose: 10 mg Brimonidine Tartrate (Alphagan 0.2% -) 1 drop OD DAILY [facility] Last Admin: 05/01/18 10:31 Dose: 1 drop Potassium Chloride/Sodium Chloride (1/2ns+20meq Kcl) 20 meq in 1,000 mls @ 83 mls/hr IV ASDIR [facility] Last Admin: 05/01/18 13:53 Dose: 83 mls/hr Levetiracetam (Keppra Oral Solution -) 500 mg PEG BID [facility] Last Admin: 05/01/18 10:33 Dose: 500 mg Levothyroxine Sodium (Synthroid -) 50 mcg PEG DAILY@0600 [facility] Last Admin: 05/01/18 05:27 Dose: 50 mcg Metoprolol Tartrate (Lopressor -) 50 mg PEG BID [facility] Last Admin: 05/01/18 10:33 Dose: 50 mg Phenytoin Sodium (Dilantin Oral Suspension -) 100 mg PO TID [facility] Last Admin: 05/01/18 13:54 Dose: 100 mg Ranitidine HCl (Zantac Oral Solution -) 150 mg PEG BID [facility] Last Admin: 05/01/18 10:35 Dose: 150 mg Timolol Maleate (Timoptic 0.5%) 1 drop OD DAILY [facility] Last Admin: 05/01/18 10:34 Dose: 1 drop 87 year old male with Hx of Hemorrhagic CVA, Seizure disorder, Hypertension, CAD, AAA s/p repair who presnted from [place] with seizure activity and found to have MALINDA. #Acute Kidney injury secondary to obstruction #Seizures #Hyponatremia in setting fo renal failure w/o overt fluid overload #Anemia Renal function improved pt is no longer polyuric, can d/c IVF Maintain sotelo, urology consult regarding plan for Sotelo management vs. TRUP as outpatient start flomax once daily supplament K as needed no acute indication for transfusion serum Na improved to WNL Thank you Jay Diaz DO
[2018-05-01] MEDS ORDERED: TAMSULOSIN HCL 0.4 MG CAP.ER.24H (FP) PO SCH (14:29)
--- NOTE | 2018-05-01 17:12 | DS ---
Physical Exam: SUBJECTIVE: Patient seen and examined at bedside. Eyes are spontaneously open, however patient remains verbally unresponsive and does not follow commands. Patient is saturating 100% on 3L nasal canula. No acute distress, no use of accessory muscles respiration. OBJECTIVE: Vital Signs Period Temp Pulse Resp BP Sys/Michel Pulse Ox Last 24 Hr 97.8 F-98.9 F 66-72 15-18 108-162/43-78 98-100 PHYSICAL EXAM GENERAL: The patient is in no acute distress, nonverbal. HEAD: Normocephalic. Horizontal scar visualized on left side from prior surgery. EYES: Sclera anicteric, conjunctiva clear. ENT: Oropharynx with multiple erythematous lesions along roof of mouth and tongue. Dry mucous membranes. NECK: Trachea midline, supple. LUNGS: Breath sounds equal, clear to auscultation bilaterally, no wheezes, appreciated. HEART: Regular rate and rhythm, S1, S2 without murmur, rub or gallop. ABDOMEN: Soft, nondistended, normoactive bowel sounds. No hepatosplenomegaly appreciated. NEUROLOGICAL: No facial assymmetry noted. Biceps reflex 2+ left and 1+ right. Patellar reflex 2+ right, 1+ left. Increased tone with resistance to passive movement in left upper extremity compared to right, and left lower extremity compared to left. EXTREMITIES: 2+ radial pulses, 1+ dorslis pedis pulses b/l. Right hand more swollen than left. IV has been changed to left arm today. SKIN: Warm, dry. 5cm x 2cm lesion noted on anterior left leg. Bandaged scratches along right leg. Stage II sacral ulcer noted. Two vesicles noted along right shoulder, nondraining. LABS Laboratory Results - last 24 hr 05/01/18 05/01/18 05:30 05:30 WBC 9.1 RBC 2.97 L Hgb 8.7 L Hct 25.4 L MCV 85.6 MCH 29.3 MCHC 34.2 RDW 14.7 Plt Count 207 MPV 6.5 L Absolute Neuts (auto) 4.7 Neutrophils % 51.4 Lymphocytes % 19.5 Monocytes % 10.3 H Eosinophils % 18.2 H Basophils % 0.6 Nucleated RBC % 0 Sodium 138 Potassium 3.4 L Chloride 100 Carbon Dioxide 29 Anion Gap 9 BUN 25 H Creatinine 1.4 H Creat Clearance w eGFR 47.94 Random Glucose 100 Calcium 7.9 L Total Bilirubin 0.2 AST 34 ALT 30 Alkaline Phosphatase 124 H Total Protein 6.1 L Albumin 2.8 L HOSPITAL COURSE: Date of Admission:04/27/18 Date of Discharge: 05/01/18 Patient is an 87 year old male from [facility] with history of seizures (on Dilantin , and Keppra) presents after witnessed seizure. Patient is nonverbal. He presented with hyponatremia of 127 , Cr of 4.9 peaked at 5.1 before trending downwards. Neurology consult discussed seizure likely due to hyponatremia. Corrected slowly with normal saline per nephrology consult. MALINDA also improved with hydration. Initially was passing bloody urine, likely secondary to traumatic sotelo catheter insertion. Resolved, and patient was passing clear- light yelow urine. Urology follow up was recommended. Dilantin dosage was increased per neurology recommendation. Patient did not have any seizures while admitted. Discharged to [facility] to follow up with primary care physician, neurology, and urology within one week of discharge. Dilantin increased to 100mg Q8H, Keppra remains same dosage at 500mg BID. Minutes to complete discharge: 45 Discharge Summary Reason For Visit: ACUTE KIDNEY INJURY/SEIZURE Current Active Problems MALINDA (acute kidney injury) (Acute) Seizure (Acute) Functional quadriplegia (Chronic) Condition: Stable - Instructions Diet, Activity, Other Instructions: You were admitted for a seizure. On labs, you were noted to have low sodium (127), which we corrected slowly with intravenous fluids. The neurologist examined you, and increased the dosage of Dilantin to 100mg every 8 hours. You dosage of Keppra remains the same at 500mg every 12 hours. The asphalt roller operator also examined you for kidney injury which has resolved with intravenous fluid hydration. You have been started on Flomax 0.4mg daily. Continue taking your medications as directed, with exception of Dilantin which has been changed to 100mg every 8 hours, and addition of Flomax 0.4mg daily It is important that you follow up with your primary care physician within one week of discharge. Follow up with the neurologist Dr. Stokes within one week of discharge. You may need a follow-up EEG done after that appointment. Please return the the nearest emergency department if you experience any fevers , seizures, falls, loss of consciousness, chest pain, palpitations, abdominal pain, vomiting. Need blood work ( CBC, BMP in 1 week ) Need follow up with urology for urinary retention. and evacuation for TURP . continue sotelo until follow up with urology, in 1 week . ( important ) Referrals: Ashwin Stokes MD [Staff Physician] - 2 Weeks Laura Yoder MD [Primary Care Provider] - Beto Alonso MD [Staff Physician] - 1 Week Disposition: LONG-TERM FACILITY - Home Medications Comprehensive Discharge Medication List: Ambulatory Orders Brimonidine Tartrate/Timolol [Combigan 0.2%-0.5% Eye Drops] 1 drop OD DAILY 01/13 Atorvastatin Ca [Lipitor] 10 mg NGT HS tablet 04/07/18 Pantoprazole Suspension [Protonix Packets For Oral Suspension -] 40 mg PEG DAILY packet 04/07/18 Amlodipine Besylate [Norvasc -] 10 mg PEG DAILY #30 tablet 04/08/18 Docusate Sodium [Colace -] 100 mg PEG DAILY #60 capsule 04/08/18 Levothyroxine [Synthroid -] 50 mcg PEG DAILY@0600 #0 syr 04/08/18 Metoprolol Tartrate [Lopressor -] 50 mg PEG BID #60 tablet 04/08/18 Albuterol 2.5/Ipratropium 0.5 [Duoneb -] 1 neb IH QID 04/27/18 Guaifenesin 400 mg NGT BID 04/27/18 Scopolamine 1 each TD ASDIR 04/27/18 levETIRAcetam [Keppra Oral Solution -] 500 mg PEG BID 04/27/18 Brimonidine Tartrate [Alphagan 0.2% -] 1 drop OD DAILY drops 05/01/18 Phenytoin Oral Suspension [Dilantin Oral Suspension 100 MG/4 ML] 100 mg GT Q8H 30 Days cup 05/01/18 Tamsulosin HCl [Flomax] 0.4 mg PO DAILY 30 Days #30 cap.er.24h 05/01/18 This patient is new to me today: No Emergency Visit: Yes ED Registration Date: 04/27/18 Care time: The patient presented to the Emergency Department on the above date and was hospitalized for further evaluation of their emergent condition. Critical Care patient: Yes Total Critical Care Time (in minutes): 45 Critical Care Statement: The care of this patient involved high complexity decision making to prevent further life threatening deterioration of the patient 's condition and/or to evaluate & treat vital organ system(s) failure or risk of failure. - Discharge Referral Referred to [facility] No
== END 2018-05-01 19:00 | DRG 682 ==
LOC: JER 16:18 → JERBED 22:41 → J2W 04-28 09:44
PROVIDERS: ADMIT Internal Medicine; ATTEND Internal Medicine
DX: N17.9 Acute kidney failure, unspecified (principal); R53.2 Functional quadriplegia; E87.1 Hypo-osmolality and hyponatremia; N13.30 Unspecified hydronephrosis; R56.9 Unspecified convulsions; R62.7 Adult failure to thrive; L89.152 Pressure ulcer of sacral region, stage 2; D64.9 Anemia, unspecified; Z93.1 Gastrostomy status; N28.89 Other specified disorders of kidney and ureter; N13.9 Obstructive and reflux uropathy, unspecified; Z95.1 Presence of aortocoronary bypass graft; E03.9 Hypothyroidism, unspecified; M35.3 Polymyalgia rheumatica; E78.5 Hyperlipidemia, unspecified; Z86.73 Personal history of transient ischemic attack (TIA), and cerebral infarction without residual deficits; Z66 Do not resuscitate; M62.49 Contracture of muscle, multiple sites; M54.5 Low back pain; M54.16 Radiculopathy, lumbar region; I25.10 Atherosclerotic heart disease of native coronary artery without angina pectoris; K58.9 Irritable bowel syndrome, unspecified; E86.0 Dehydration; E87.6 Hypokalemia; R31.0 Gross hematuria; E87.70 Fluid overload, unspecified; I12.9 Hypertensive chronic kidney disease with stage 1 through stage 4 chronic kidney disease, or unspecified chronic kidney disease; N18.9 Chronic kidney disease, unspecified; N40.1 Benign prostatic hyperplasia with lower urinary tract symptoms; N39.498 Other specified urinary incontinence
CPT/HCPCS: 36415; 70450-TC; 71045-TC-FY; 76775-TC; 76856-TC; 80048; 80053; 80185; 81003; 81015; 82550; 82570; 82728; 83540; 83550; 83735; 84100; 84156; 84300; 84443; 84466; 84484; 84540; 85025; 85027; 87040; 87086; 93005; 93010; 94640; 95816; 99284-25; J3480; J7030; J7620

== ENCOUNTER 2018-05-25 04:23 | Inpatient (IN) | payer OTHER, BC ==
[2018-05-25] MEDS ORDERED: SODIUM CHLORIDE 0.9% 1000 ML INFUS.BAG IV STA (05:01)
[2018-05-25] MEDS ORDERED: PIPERACILLIN/TAZOB 3.375 GM 3.375 GM in DEXTROSE 5%-WATER - 50 ML IVPB ONE (05:02)
[2018-05-25] MEDS ORDERED: VANCOMYCIN 1 GRAM (PRE-DOCKED) 1,000 MG/250 ML BAG IVPB ONE ×2 (05:02→06:16)
[2018-05-25] MEDS ORDERED: ACETAMINOPHEN 1000 MG/100 ML VIAL (NON FORMULARY) IVPB ONE (05:04)
--- NOTE | 2018-05-25 05:12 | PDOC ---
History of Present Illness - General Chief Complaint: Nausea/Vomiting Stated Complaint: VOMITING Time Seen by Provider: 05/25/18 04:54 History Source: [facility] Records Exam Limitations: Clinical Condition, Dementia - History of Present Illness Initial Comments: 05/25/18 05:07 Patient is an 87M with history of seizure, HTN, CAD, AAA s/p repair, CAD s/p CABG, CVA, Respiratory failure, G-tube placement here today complaining of vomiting up the contents of his G tube. Patient is non-communicative at baseline per jail and EMS report. EMS reports the jail sent him in for evaluation of him having "curd-like" vomitus after g-tube feeds. penitentiary paperwork indicates DNR, no mention of DNI. Past History - Past Medical History Allergies/Adverse Reactions: Allergies Allergy/AdvReac Type Severity Reaction Status Date / Time No Known Allergies Allergy Verified 04/27/18 16:40 Home Medications: Ambulatory Orders Brimonidine Tartrate/Timolol [Combigan 0.2%-0.5% Eye Drops] 1 drop OD DAILY 01/13 Atorvastatin Ca [Lipitor] 10 mg NGT HS tablet 04/07/18 Pantoprazole Suspension [Protonix Packets For Oral Suspension -] 40 mg PEG DAILY packet 04/07/18 Amlodipine Besylate [Norvasc -] 10 mg PEG DAILY #30 tablet 04/08/18 Docusate Sodium [Colace -] 100 mg PEG DAILY #60 capsule 04/08/18 Levothyroxine [Synthroid -] 50 mcg PEG DAILY@0600 #0 syr 04/08/18 Metoprolol Tartrate [Lopressor -] 50 mg PEG BID #60 tablet 04/08/18 Albuterol 2.5/Ipratropium 0.5 [Duoneb -] 1 neb IH QID 04/27/18 Guaifenesin 400 mg NGT BID 04/27/18 Scopolamine 1 each TD ASDIR 04/27/18 levETIRAcetam [Keppra Oral Solution -] 500 mg PEG BID 04/27/18 Brimonidine Tartrate [Alphagan 0.2% -] 1 drop OD DAILY drops 05/01/18 Phenytoin Oral Suspension [Dilantin Oral Suspension 100 MG/4 ML] 100 mg GT Q8H 30 Days cup 05/01/18 Tamsulosin HCl [Flomax] 0.4 mg PO DAILY 30 Days #30 cap.er.24h 05/01/18 Cardiac Disorders: Yes (AAA- repair september 2017, AAA repair, CABG) COPD: No Dementia: Yes GI Disorders: Yes (IBS) Disorders: Yes (prostate disease) HTN: Yes Seizures: Yes Thyroid Disease: Yes (hypothyroidism, POLYMYALGIA) - Surgical History Abdominal Surgery: Yes (UMBILICAL HERNIA REPAIR-) Cardiac Surgery: Yes (CABG) - Immunization History Immunization Up to Date: No - Suicide/Smoking/Psychosocial Hx Smoking Status: No Smoking History: Unknown if ever smoked Have you smoked in the past 12 months: No Number of Cigarettes Smoked Daily: 0 Information on smoking cessation initiated: No Hx Alcohol Use: No Drug/Substance Use Hx: No Substance Use Type: None Hx Substance Use Treatment: No Review of Systems - Review of Systems Able to Perform ROS?: No *Physical Exam - Vital Signs Last Vital Signs Temp Pulse Resp BP Pulse Ox 101 F H 124 H 22 H 125/76 96 05/25/18 04:25 05/25/18 04:25 05/25/18 04:25 05/25/18 04:25 05/25/18 04:25 - Physical Exam Comments: 05/25/18 05:10 GENERAL: Awake, alert, nonverbal HEAD: No signs of trauma, normocephalic, atraumatic EYES: PERRLA, EOMI, sclera anicteric, conjunctiva clear ENT: Auricles normal inspection, hearing grossly normal, nares patent, oropharynx clear without exudates. Moist mucosa NECK: Normal ROM, supple, no lymphadenopathy, JVD, or masses LUNGS: No distress, decreased breath sounds on left HEART: Tachycardic, normal S1 and S2, no murmurs, rubs or gallops, peripheral pulses normal and equal bilaterally. ABDOMEN: Soft, nontender, g tube in palce normoactive bowel sounds. No guarding , no rebound. No masses. Stool in diaper EXTREMITIES: Normal inspection, Normal range of motion, no edema. No clubbing or cyanosis. NEUROLOGICAL: Cranial nerves II through XII grossly intact. Exam limited by patient not complying with instruction. Moving all extremities. SKIN: Warm, Dry, normal turgor, no rashes or lesions noted. ED Treatment Course - LABORATORY CBC & Chemistry Diagram: 05/25/18 05:25 05/25/18 05:25 - RADIOLOGY Radiology Studies Ordered: Category Date Time Status CHEST X-RAY PORTABLE* [RAD] Stat Radiology 05/25/18 05:01 Ordered Medical Decision Making - Medical Decision Making 05/25/18 05:12 Patient is 87M with extensive medical history here today with vomiting, decreased breath sounds on left, fever, tachycardia. BPs stable. Patient is septic. DDx includes, but is not limited to: pneumonia, UTI, intra-abdominal infection. Obstruction considered, but patient had bowel movement in ED. Suspect aspiration. Septic workup initiated, will cover with vanc/zosyn, 1.5L fluids given. 05/25/18 06:13 EKG shows sinus tachycardia with rate of 127. No st elevations. ST depressions in V4-V6. Normal axis. Normal intervals. No significant t wave abnormalities. 05/25/18 07:00 Laboratory Tests 05/25/18 05/25/18 05/25/18 05:25 05:25 05:25 WBC 8.5 Hgb 10.6 L Plt Count 405 D Neutrophils % 90.9 H VBG pH 7.47 H POC VBG pCO2 45.6 BUN 60 H Creatinine 2.4 H Random Glucose 127 H Troponin I 05/25/18 05:25 WBC Hgb Plt Count Neutrophils % VBG pH POC VBG pCO2 BUN Creatinine Random Glucose Troponin I < 0.02 CBC normal. VBG shows slight alkalosis. CMP shows MALINDA. Troponin undetectable. Lactic acid pending. CXR pending. 05/25/18 07:[address] Cruz. *DC/Admit/Observation/Transfer Diagnosis at time of Disposition: Sepsis - Discharge Dispostion Condition at time of disposition: Stable - Referrals Referrals: Laura oYder MD [Primary Care Provider] - - Patient Instructions - Post Discharge Activity
[2018-05-25 05:42] LABS: VENOUS PC02 45.6 mmHg (38-52); VENOUS PH 7.47 (7.32-7.42); VENOUS PO2 36.7 mmHg (28-48)
[2018-05-25 05:43] LABS: BASO % 1.6 % (0-2.0); EOS % 0.5 % (0-4.5); HEMATOCRIT 31.3 % (35.4-49); HEMOGLOBIN 10.6 GM/dL (11.7-16.9); LYMPH % 3.9 % (8-40); MCH 29.9 pg (25.7-33.7); MCHC 33.9 g/dl (32.0-35.9); MEAN CELL VOLUME 88.2 fl (80-96); MEAN PLT VOLUME 6.7 fl (7.5-11.1); MONO % 3.1 % (3.8-10.2); NEUT % 90.9 % (42.8-82.8); PLATELET COUNT 405 K/MM3 (134-434); RBC 3.55 M/mm3 (4.00-5.60); RDW 14.7 % (11.9-15.9); WHITE BLOOD COUNT 8.5 K/mm3 (4.0-10.0)
[2018-05-25 06:01] LABS: INR 1.27 (0.83-1.09)
[2018-05-25 06:04] LABS: ACTIVATED PTT 25.1 SECONDS (25.2-36.5)
--- NOTE | 2018-05-25 06:11 | PDOC ---
Attending Attestation - Resident Resident Name: Beto Montiel - ED Attending Attestation I have performed the following: I have examined & evaluated the patient, The case was reviewed & discussed with the resident, I agree w/resident's findings & plan - HPI HPI: 05/25/18 06:11 Pt comes with aspiration pneumonia. - Physicial Exam PE: 05/25/18 06:48 Agree with resident exam. - Medical Decision Making 05/25/18 06:49 Pt will be admitted once he gets CXR and rest of results back Heart Score/ECG Review - History History: Slightly suspicious - Electrocardiogram EKG: Normal - Age Age: >/= 65
[2018-05-25 06:13] LABS: ALBUMIN 3.2 g/dl (3.4-5.0); ALK PHOS 184 U/L (45-117); ANION GAP 15 MMOL/L (8-16); BILIRUBIN,TOTAL 0.6 mg/dL (0.2-1); BLOOD UREA NITROGEN 60 mg/dL (7-18); CALCIUM 9.1 mg/dL (8.5-10.1); CHLORIDE 95 mmol/L (98-107); CO2 32 mmol/L (21-32); CREATININE 2.4 mg/dL (0.55-1.3); GLUCOSE,RANDOM 127 mg/dL (74-106); POTASSIUM 3.7 mmol/L (3.5-5.1); SGOT/AST 72 U/L (15-37); SGPT/ALT 69 U/L (13-61); SODIUM 142 mmol/L (136-145); TOT PROT 7.2 g/dl (6.4-8.2)
[2018-05-25] MEDS ORDERED: PIPERACILLIN/TAZOB 3.375 GM 3.375 GM/50 ML BAG IVPB ONE (06:16)
--- NOTE | 2018-05-25 07:20 | PDOC ---
*Physical Exam - Vital Signs Last Vital Signs Temp Pulse Resp BP Pulse Ox 101 F H 119 H 19 136/74 98 05/25/18 04:25 05/25/18 07:10 05/25/18 07:10 05/25/18 07:10 05/25/18 07:10 - Physical Exam Comments: General: Sleeping comfortably Cards: Mildly tachycardic Pulm: Comfortable on O2 by NC. Productive cough Abd: Soft, nontender, nondistended. G tube in place. Ext: Can move all extremities. R hand swollen, in brace. Vasc: Extremities WWP. Skin: Normal color, no rashes or lesions Neuro: Nonverbal. No focal deficits ED Treatment Course - LABORATORY CBC & Chemistry Diagram: 05/25/18 05:25 05/25/18 05:25 - ADDITIONAL ORDERS Additional order review: Laboratory Results 05/25/18 05/25/18 05/25/18 05:25 05:25 05:25 PT with INR INR PTT (Actin FS) VBG pH POC VBG pCO2 POC VBG pO2 Mixed VBG HCO3 Sodium 142 Potassium 3.7 Chloride 95 L Carbon Dioxide 32 Anion Gap 15 BUN 60 H Creatinine 2.4 H Creat Clearance w eGFR 25.74 Random Glucose 127 H Calcium 9.1 Total Bilirubin 0.6 AST 72 H ALT 69 H Alkaline Phosphatase 184 H Troponin I < 0.02 Total Protein 7.2 Albumin 3.2 L Lipase 172 05/25/18 05/25/18 05:25 05:25 PT with INR 15.00 H INR 1.27 H PTT (Actin FS) 25.1 L VBG pH 7.47 H POC VBG pCO2 45.6 POC VBG pO2 36.7 Mixed VBG HCO3 33.1 H Sodium Potassium Chloride Carbon Dioxide Anion Gap BUN Creatinine Creat Clearance w eGFR Random Glucose Calcium Total Bilirubin AST ALT Alkaline Phosphatase Troponin I Total Protein Albumin Lipase 05/25/18 06:11 Influenza Types A,B Antigen - Preliminary Nasopharyngeal Swab - Preliminary 05/25/18 05:25 RBC 3.55 L MCV 88.2 MCHC 33.9 RDW 14.7 MPV 6.7 L Neutrophils % 90.9 H Lymphocytes % 3.9 L D Monocytes % 3.1 L Eosinophils % 0.5 D Basophils % 1.6 - RADIOLOGY Radiology Studies Ordered: Category Date Time Status ABDOMEN & PELVIS CT W/O CONTR [CT] Stat CT Scan 05/25/18 07:17 Ordered - Medications Given in the ED: ED Medications Discontinued Medications Generic Name Dose Route Start Last Admin Trade Name Edel PRN Reason Stop Dose Admin Acetaminophen 1,000 mg 05/25/18 05:04 05/25/18 06:20 Ofirmev Injection - IVPB 05/25/18 05:05 1,000 mg ONCE ONE Administration Piperacillin Sod/Tazobactam 50 mls @ 100 mls/hr 05/25/18 05:02 05/25/18 06:20 Sod 3.375 gm/ Dextrose IVPB 05/25/18 05:31 100 mls/hr ONCE ONE Administration Protocol Sodium Chloride 1,429 ml 05/25/18 05:01 05/25/18 06:00 Normal Saline - 30 ml/kg (1429 ml) 05/25/18 05:02 1,429 ml IV Administration ONCE STA Vancomycin HCl 1,000 mg 05/25/18 05:02 05/25/18 06:15 Vancomycin (Pre-Docked) IVPB 05/25/18 05:03 1,000 mg ONCE ONE Administration Protocol Medical Decision Making - Medical Decision Making 05/25/18 07:30 Donta Kamara is an 87yo man with a [facility] seizure disoder, HTN, CAD s/p CABG, AAA s/p repair, previous CVA, chronic respiratory failure, nonverbal at baseline , s/p g-tube placement who presented from a SNF with complaint of vomiting after tube feeds. He was noted to be tachycardic to 127, febrile to 101 and tachypnic to 22 on arrival. - labs notable for MALINDA with Cr to 2.4 from previous 1.4 - LFTs mildly elevated - 1.5L fluid bolus given - Vanc/zosyn started for sepsis 05/25/18 07:32 - Lactate elevated to 4.6 - CXR pending - CT abd/pelvis to rule out partial obstruction. Pt had soft bowel movement in ED but no clear cause of sepsis at this time 05/25/18 08:32 - CXR with b/l basilar infiltrates - Microblog to hospitalist team for admission 05/25/18 11:05 - Spoke to Dr Burks regarding admission - Admitted to Dr Marie Discussed with Dr Alford. Liane Cruz PGY1 *DC/Admit/Observation/Transfer Diagnosis at time of Disposition: Sepsis - Discharge Dispostion Condition at time of disposition: Stable Decision to Admit order: Yes - Referrals Referrals: Laura Yoder MD [Primary Care Provider] - - Patient Instructions - Post Discharge Activity
[2018-05-25 09:23] LABS: ANISOCYTOSIS 1+; MACROCYTOSIS 0; PLATELET ESTIMATE NORMAL
--- NOTE | 2018-05-25 11:48 | HP ---
CHIEF COMPLAINT: Vomiting PCP: [facility] HISTORY OF PRESENT ILLNESS: 87 year-old male with a PMH significant for HTN, CAD s/p CABG, CVA, CKD, AAA s/ p repair, seizure disorder, chronic respiratory failure, G-tube, dementia, and BPH. Sent from [place] for vomiting contents of his G-tube. Patient is nonverbal at baseline and unable to provide any history. ER course was notable for: (1) T 101, p124 (2) CXR: bibasilar infiltrates (3) BUN/Cr 60/2.4 Recent Travel: No PAST MEDICAL HISTORY: Hypertension Coronary artery disease CVA AAA Seizure disorder Chronic respiratory failure IBS Gout Hypothyroidism Dementia CKD BPH PAST SURGICAL HISTORY: Coronary bypass AAA repair G-tube Hernia repair Subdural hematoma evacuation x 2 Social History: Smoking: Alcohol: Drugs: Family History: Allergies No Known Allergies Allergy (Verified 04/27/18 16:40) HOME MEDICATIONS: Home Medications Medication Instructions Recorded Brimonidine Tartrate/Timolol 1 drop OD DAILY 10/01/17 [Combigan 0.2%-0.5% Eye Drops] Atorvastatin Ca [Lipitor] 10 mg NGT HS tablet 04/07/18 Pantoprazole Suspension [Protonix 40 mg PEG DAILY packet 04/07/18 Packets For Oral Suspension -] Amlodipine Besylate [Norvasc -] 10 mg PEG DAILY #30 tablet 04/08/18 Docusate Sodium [Colace -] 100 mg PEG DAILY #60 capsule 04/08/18 Levothyroxine [Synthroid -] 50 mcg PEG DAILY@0600 #0 syr 04/08/18 Metoprolol Tartrate [Lopressor -] 50 mg PEG BID #60 tablet 04/08/18 Albuterol 2.5/Ipratropium 0.5 1 neb IH QID 04/27/18 [Duoneb -] Guaifenesin 400 mg NGT BID 04/27/18 Scopolamine 1 each TD ASDIR 04/27/18 levETIRAcetam [Keppra Oral 500 mg PEG BID 04/27/18 Solution -] Brimonidine Tartrate [Alphagan 1 drop OD DAILY drops 05/01/18 0.2% -] Phenytoin Oral Suspension 100 mg GT Q8H 30 Days cup 05/01/18 [Dilantin Oral Suspension 100 MG/4 ML] Tamsulosin HCl [Flomax] 0.4 mg PO DAILY 30 Days #30 05/01/18 cap.er.24h REVIEW OF SYSTEMS: unable to obtain; patient nonverbal PHYSICAL EXAMINATION Vital Signs - 24 hr 05/25/18 05/25/18 05/25/18 04:25 07:10 07:30 Temperature 101 F H Pulse Rate 124 H 119 H Pulse Rate [ 119 H Left Radial] Respiratory 22 H 19 Rate Blood Pressure 125/76 136/74 Blood Pressure 136/74 [Right Arm] O2 Sat by Pulse 96 98 93 L Oximetry (%) GENERAL/NEURO: Awake, responds to physical stimuli, non-verbal. HEAD: Normal with no signs of trauma. EYES: Pupils equal, round and reactive to light, sclera anicteric, conjunctiva clear. EARS, NOSE, THROAT: dried vomitus on teeth, lips, mouth LUNGS: Diffuse rhonchi HEART: Regular rate and rhythm, S1 and S2 ABDOMEN: Soft, nontender, not distended, G-tube, surrounding skin intact UPPER EXTREMITIES: 2+ pulses, warm, well-perfused. No cyanosis. No clubbing. No peripheral edema. LOWER EXTREMITIES: 2+ pulses, warm, well-perfused. No calf tenderness. No peripheral edema. Laboratory Results - last 24 hr 05/25/18 05/25/18 05/25/18 05:20 05:25 05:25 WBC 8.5 RBC 3.55 L Hgb 10.6 L Hct 31.3 L D MCV 88.2 MCH 29.9 MCHC 33.9 RDW 14.7 Plt Count 405 D MPV 6.7 L Absolute Neuts (auto) 7.7 Neutrophils % 90.9 H Neutrophils % (Manual) 71.4 Band Neutrophils % 14.3 Lymphocytes % 3.9 L D Lymphocytes % (Manual) 7.2 L D Monocytes % 3.1 L Monocytes % (Manual) 0 L D Eosinophils % 0.5 D Eosinophils % (Manual) 2.0 Basophils % 1.6 Basophils % (Manual) 0.0 Myelocytes % (Man) 0 Promyelocytes % (Man) 0 Blast Cells % (Manual) 0 Nucleated RBC % 0 Metamyelocytes 0 Hypochromia 0 Platelet Estimate Normal Polychromasia 0 Poikilocytosis 2+ Anisocytosis 1+ Microcytosis 0 Macrocytosis 0 PT with INR 15.00 H INR 1.27 H PTT (Actin FS) 25.1 L VBG pH POC VBG pCO2 POC VBG pO2 Mixed VBG HCO3 Sodium Potassium Chloride Carbon Dioxide Anion Gap BUN Creatinine Creat Clearance w eGFR Random Glucose Lactic Acid 4.7 H* Calcium Total Bilirubin AST ALT Alkaline Phosphatase Troponin I Total Protein Albumin Lipase 05/25/18 05/25/18 05/25/18 05:25 05:25 05:25 WBC RBC Hgb Hct MCV MCH MCHC RDW Plt Count MPV Absolute Neuts (auto) Neutrophils % Neutrophils % (Manual) Band Neutrophils % Lymphocytes % Lymphocytes % (Manual) Monocytes % Monocytes % (Manual) Eosinophils % Eosinophils % (Manual) Basophils % Basophils % (Manual) Myelocytes % (Man) Promyelocytes % (Man) Blast Cells % (Manual) Nucleated RBC % Metamyelocytes Hypochromia Platelet Estimate Polychromasia Poikilocytosis Anisocytosis Microcytosis Macrocytosis PT with INR INR PTT (Actin FS) VBG pH 7.47 H POC VBG pCO2 45.6 POC VBG pO2 36.7 Mixed VBG HCO3 33.1 H Sodium 142 Potassium 3.7 Chloride 95 L Carbon Dioxide 32 Anion Gap 15 BUN 60 H Creatinine 2.4 H Creat Clearance w eGFR 25.74 Random Glucose 127 H Lactic Acid Calcium 9.1 Total Bilirubin 0.6 AST 72 H ALT 69 H Alkaline Phosphatase 184 H Troponin I < 0.02 Total Protein 7.2 Albumin 3.2 L Lipase 05/25/18 05/25/18 05:25 07:41 WBC RBC Hgb Hct MCV MCH MCHC RDW Plt Count MPV Absolute Neuts (auto) Neutrophils % Neutrophils % (Manual) Band Neutrophils % Lymphocytes % Lymphocytes % (Manual) Monocytes % Monocytes % (Manual) Eosinophils % Eosinophils % (Manual) Basophils % Basophils % (Manual) Myelocytes % (Man) Promyelocytes % (Man) Blast Cells % (Manual) Nucleated RBC % Metamyelocytes Hypochromia Platelet Estimate Polychromasia Poikilocytosis Anisocytosis Microcytosis Macrocytosis PT with INR INR PTT (Actin FS) VBG pH POC VBG pCO2 POC VBG pO2 Mixed VBG HCO3 Sodium Potassium Chloride Carbon Dioxide Anion Gap BUN Creatinine Creat Clearance w eGFR Random Glucose Lactic Acid 4.5 H* Calcium Total Bilirubin AST ALT Alkaline Phosphatase Troponin I Total Protein Albumin Lipase 172 ASSESSMENT/PLAN: 87 year-old male with a PMH significant for HTN, CAD s/p CABG, CVA, CKD, AAA s/ p repair, seizure disorder, chronic respiratory failure, G-tube, dementia, and BPH. Admitted for severe sepsis secondary to pneumonia and MALINDA. Severe sepsis secondary to pneumonia --likely secondary to aspiration --T 101, p 124, CXR with bilateral infiltrates, lactic acid 4.7 on admission --fluid reuscitated in ED, BP stable --Zosyn --ID following Acute on chronic kidney disease Azotemia --Cr 2.4 on admission, baseline 1.1 --IV fluids Hypertension --hold antihypertensives due to sepsis Coronary artery disease Seizure disorder --continue Keppra, dilantin Chronic respiratory failure BPH --continue tamsulosin Hypothyroidism --continue levothyroxine FEN Fluids: NS @ 50mL/hr Electrolytes: replete as indicated Nutrition: hold tube feeds for ow DVT prophylaxis: subq heparin Visit type - Emergency Visit Emergency Visit: Yes ED Registration Date: 05/25/18 Care time: The patient presented to the Emergency Department on the above date and was hospitalized for further evaluation of their emergent condition. - New Patient This patient is new to me today: Yes Date on this admission: 05/26/18 - Critical Care Critical Care patient: No
[2018-05-25] MEDS ORDERED: SODIUM CHLORIDE 1,000 ML IV SCH (12:15)
[2018-05-25] MEDS ORDERED: SCOPOLAMINE HYDROBROMIDE 1 PATCH PATCH.TD72 TD SCH (12:45)
--- NOTE | 2018-05-25 12:59 | CON.ID ---
Consult - History of Present Illness History of Present Illness: This is an 87 y.o. male with PMH of CVA, dysphagia s/p peg placement, CAD s/p CABG, AAA s/p repair, seizure d.o. , HTN, hypothyroidism presenting to the ER due to vomiting of peg feeds. Pt is lethargic (baseline mental status unclear) and was noted to have fever (101F) upon presentation as well as tachycardia and tachypnea. His Lactic Acid level >4 with Chest imaging revealing b/l Lower lobe infiltrates. Also of note pt with significantly elevated BUN/Creatinine with evidence of Lt hydronephrosis. He is currently nonverbal, grimacing on examination but without acute distress. 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 No: AFIB, Aneurysm, Aortic Insufficiency, Aortic Stenosis, CHF, Deep Vein Thrombosis, NE, Mitral Insufficiency, Mitral Stenosis, Murmur, Pulmonary Hypertension Pulmonary: Yes: Pneumonia Gastrointestinal: Yes: Irritable Bowel Disease Musculoskeletal: Yes: Chronic low back pain (with radiculopathy) Rheumatology: Yes: Gout, Other (Polymyalgia Rheumatica) Endocrine: Yes: Hypothyroidism. No: [place]'s Disease, [place]'s Disease, Diabetes Insipidus, Diabetes Mellitus, Hyperparathyroidism, Hyperthyroidism, Osteopenia, SIADH, Other - Past Surgical History Past Surgical History: Yes: AAA Repair, Appendectomy, CABG ([facility]), Tonsillectomy. No: None, AICD, Amputation, Arthrosocopy, AV Fistula/Graft, Bariatric Surgery, Breast Biopsy, Bypass, Carotid Endarterectomy, Cataract Removal, Cholecystectomy, Colectomy, Colonoscopy, Colostomy, Craniotomy, C- Section, Cystectomy, Hernia Repair, Hysterectomy, Ileal Conduit, Ileosotomy, Joint Replacement, Kidney Transplant, Laminectomy, Liver Transplant, Mastectomy , Nephrectomy, Oopherectomy, Orchiectomy, Permanent Pacemaker, Prostatectomy, Splenectomy, Stent, Thoracotomy, TURP, Tubal Ligation, Upper Endoscopy, Valve Replacement, Vasectomy, Vein Stripping/Ligation - Alcohol/Substance Use Hx Alcohol Use: No - Smoking History Smoking history: Unknown if ever smoked Have you smoked in the past 12 months: No Aproximately how many cigarettes per day: 0 - Social History ADL: Support Services History of Recent Travel: No Home Medications - Allergies Allergies/Adverse Reactions: Allergies Allergy/AdvReac Type Severity Reaction Status Date / Time No Known Allergies Allergy Verified 04/27/18 16:40 - Home Medications Home Medications: Ambulatory Orders Brimonidine Tartrate/Timolol [Combigan 0.2%-0.5% Eye Drops] 1 drop OD DAILY 01/13 Atorvastatin Ca [Lipitor] 10 mg NGT HS tablet 04/07/18 Pantoprazole Suspension [Protonix Packets For Oral Suspension -] 40 mg PEG DAILY packet 04/07/18 Amlodipine Besylate [Norvasc -] 10 mg PEG DAILY #30 tablet 04/08/18 Docusate Sodium [Colace -] 100 mg PEG DAILY #60 capsule 04/08/18 Levothyroxine [Synthroid -] 50 mcg PEG DAILY@0600 #0 syr 04/08/18 Metoprolol Tartrate [Lopressor -] 50 mg PEG BID #60 tablet 04/08/18 Albuterol 2.5/Ipratropium 0.5 [Duoneb -] 1 neb IH QID 04/27/18 Guaifenesin 400 mg NGT BID 04/27/18 Scopolamine 1 each TD ASDIR 04/27/18 levETIRAcetam [Keppra Oral Solution -] 500 mg PEG BID 04/27/18 Brimonidine Tartrate [Alphagan 0.2% -] 1 drop OD DAILY drops 05/01/18 Phenytoin Oral Suspension [Dilantin Oral Suspension 100 MG/4 ML] 100 mg GT Q8H 30 Days cup 05/01/18 Tamsulosin HCl [Flomax] 0.4 mg PO DAILY 30 Days #30 cap.er.24h 05/01/18 Review of Systems - Review of Systems Constitutional: reports: Fever, Lethargy Cardiovascular: reports: Shortness of Breath Gastrointestinal: reports: Vomiting Integumentary: reports: Other Physical Exam Vital Signs: Vital Signs Temperature 98.8 F 05/25/18 11:40 Pulse Rate 104 H 05/25/18 11:28 Respiratory Rate 20 05/25/18 11:28 Blood Pressure 141/96 05/25/18 11:28 O2 Sat by Pulse Oximetry (%) 93 L 05/25/18 11:28 Constitutional: Yes: No Distress Eyes: Yes: Conjunctiva Clear Cardiovascular: Yes: Tachycardia Respiratory: Yes: Diminished (bibasilar) Gastrointestinal: Yes: Normal Bowel Sounds, Soft, Other (GT) Extremities: Yes: Other (Rt hand mild edema, no erythema/wound) Neurological: Yes: Lethargy Labs: CBC, BMP 05/25/18 05:25 05/25/18 05:25 Laboratory Tests 05/25/18 05/25/18 05/25/18 05:20 05:25 05:25 WBC 8.5 RBC 3.55 L Hgb 10.6 L Hct 31.3 L D MCV 88.2 MCH 29.9 MCHC 33.9 RDW 14.7 Plt Count 405 D MPV 6.7 L Absolute Neuts (auto) 7.7 Neutrophils % 90.9 H Neutrophils % (Manual) 71.4 Band Neutrophils % 14.3 Lymphocytes % 3.9 L D Lymphocytes % (Manual) 7.2 L D Monocytes % 3.1 L Monocytes % (Manual) 0 L D Eosinophils % 0.5 D Eosinophils % (Manual) 2.0 Basophils % 1.6 Basophils % (Manual) 0.0 Myelocytes % (Man) 0 Promyelocytes % (Man) 0 Blast Cells % (Manual) 0 Nucleated RBC % 0 Metamyelocytes 0 Hypochromia 0 Platelet Estimate Normal Polychromasia 0 Poikilocytosis 2+ Anisocytosis 1+ Microcytosis 0 Macrocytosis 0 PT with INR 15.00 H INR 1.27 H PTT (Actin FS) 25.1 L VBG pH POC VBG pCO2 POC VBG pO2 Mixed VBG HCO3 Sodium Potassium Chloride Carbon Dioxide Anion Gap BUN Creatinine Creat Clearance w eGFR Random Glucose Lactic Acid 4.7 H* Calcium Total Bilirubin AST ALT Alkaline Phosphatase Troponin I Total Protein Albumin Lipase 05/25/18 05/25/18 05/25/18 05:25 05:25 05:25 WBC RBC Hgb Hct MCV MCH MCHC RDW Plt Count MPV Absolute Neuts (auto) Neutrophils % Neutrophils % (Manual) Band Neutrophils % Lymphocytes % Lymphocytes % (Manual) Monocytes % Monocytes % (Manual) Eosinophils % Eosinophils % (Manual) Basophils % Basophils % (Manual) Myelocytes % (Man) Promyelocytes % (Man) Blast Cells % (Manual) Nucleated RBC % Metamyelocytes Hypochromia Platelet Estimate Polychromasia Poikilocytosis Anisocytosis Microcytosis Macrocytosis PT with INR INR PTT (Actin FS) VBG pH 7.47 H POC VBG pCO2 45.6 POC VBG pO2 36.7 Mixed VBG HCO3 33.1 H Sodium 142 Potassium 3.7 Chloride 95 L Carbon Dioxide 32 Anion Gap 15 BUN 60 H Creatinine 2.4 H Creat Clearance w eGFR 25.74 Random Glucose 127 H Lactic Acid Calcium 9.1 Total Bilirubin 0.6 AST 72 H ALT 69 H Alkaline Phosphatase 184 H Troponin I < 0.02 Total Protein 7.2 Albumin 3.2 L Lipase 05/25/18 05/25/18 05:25 07:41 WBC RBC Hgb Hct MCV MCH MCHC RDW Plt Count MPV Absolute Neuts (auto) Neutrophils % Neutrophils % (Manual) Band Neutrophils % Lymphocytes % Lymphocytes % (Manual) Monocytes % Monocytes % (Manual) Eosinophils % Eosinophils % (Manual) Basophils % Basophils % (Manual) Myelocytes % (Man) Promyelocytes % (Man) Blast Cells % (Manual) Nucleated RBC % Metamyelocytes Hypochromia Platelet Estimate Polychromasia Poikilocytosis Anisocytosis Microcytosis Macrocytosis PT with INR INR PTT (Actin FS) VBG pH POC VBG pCO2 POC VBG pO2 Mixed VBG HCO3 Sodium Potassium Chloride Carbon Dioxide Anion Gap BUN Creatinine Creat Clearance w eGFR Random Glucose Lactic Acid 4.5 H* Calcium Total Bilirubin AST ALT Alkaline Phosphatase Troponin I Total Protein Albumin Lipase 172 Imaging - Results Chest X-ray: Report Reviewed Cat Scan: Report Reviewed Problem List - Problems (1) Sepsis Code(s): A41.9 - SEPSIS, UNSPECIFIED ORGANISM (2) MALINDA (acute kidney injury) Code(s): N17.9 - ACUTE KIDNEY FAILURE, UNSPECIFIED (3) Aneurysm of infrarenal abdominal aorta Code(s): I71.4 - ABDOMINAL AORTIC ANEURYSM, WITHOUT RUPTURE (4) CAD (coronary artery disease) Code(s): I25.10 - ATHSCL HEART DISEASE OF [place] CORONARY ARTERY W/O ANG PCTRS Qualifiers: [place] vs. transplanted heart: [place] heart Associated angina: without angina (5) Cerebrovascular accident (CVA) Code(s): I63.9 - CEREBRAL INFARCTION, UNSPECIFIED (6) HTN (hypertension) Code(s): I10 - ESSENTIAL (PRIMARY) HYPERTENSION Qualifiers: Hypertension type: essential hypertension Qualified Code(s): I10 - Essential (primary) hypertension (7) History of endovascular stent graft for abdominal aortic aneurysm (AAA) Code(s): Z95.828 - PRESENCE OF OTHER VASCULAR IMPLANTS AND GRAFTS (8) Hyperlipidemia Code(s): E78.5 - HYPERLIPIDEMIA, UNSPECIFIED Qualifiers: Hyperlipidemia type: pure hypercholesterolemia Qualified Code(s): E78.00 - Pure hypercholesterolemia, unspecified; E78.0 - Pure hypercholesterolemia (9) Pneumonia Code(s): J18.9 - PNEUMONIA, UNSPECIFIED ORGANISM Qualifiers: Pneumonia type: aspiration pneumonia (10) Respiratory failure Code(s): J96.90 - RESPIRATORY FAILURE, UNSP, UNSP W HYPOXIA OR HYPERCAPNIA (11) S/P CABG (coronary artery bypass graft) Code(s): Z95.1 - PRESENCE OF AORTOCORONARY BYPASS GRAFT (12) Functional quadriplegia Code(s): R53.2 - FUNCTIONAL QUADRIPLEGIA Assessment/Plan 87 y.o. male with PMH of CVA, dysphagia s/p peg placement, CAD s/p CABG, AAA s/ p repair, seizure d.o. , HTN, and hypothyroidism presenting for vomiting of peg feeds Sepsis PNA - likely aspiration Respiratory distress MALINDA Lt hydronephrosis Fever CAD s/p CABG AAA repair CVA with dysphagia -- continue Zosyn empirically -- f/u blood and urine culture results -- repeat lactate, trend -- monitor vitals closely -- suggest urology evaluation -- aspiration precautions will follow Thank you
[2018-05-25 13:24] VITALS: BMI 20.3
--- NOTE | 2018-05-25 13:56 | EKG ---
Test Reason : Blood Pressure : / mmHG Vent. Rate : 127 BPM Atrial Rate : 127 BPM P-R Int : 170 ms QRS Dur : 082 ms QT Int : 296 ms P-R-T Axes : 055 035 055 degrees QTc Int : 430 ms SINUS TACHYCARDIA NONSPECIFIC ST ABNORMALITY ABNORMAL ECG WHEN COMPARED WITH ECG OF 27-APR-2018 16:43, VENT. RATE HAS INCREASED BY 43 BPM Confirmed by MD Raven, Akash ([id number]) on 05/25/2018 1:55:56 PM Referred By: Confirmed By:Akash Carbajal MD
[2018-05-25] MEDS: ALBUTEROL SO4 2.5/IPRATROPIUM 0.5 INH SOL 3 ML VIAL.NEB. NEB SCH ×2 (16:20→20:35)
[2018-05-25] MEDS ORDERED: PT OWN MED DRAWER 7, Y5N ONE (16:22)
[2018-05-25] MEDS: PHENYTOIN 100 MG/4 ML U-D CUP GT SCH ×2 (16:38→20:33)
[2018-05-25] MEDS: TIMOLOL 0.5% OPHTHALMIC SOL 5 ML BOTTLE OD SCH (16:39)
[2018-05-25] MEDS: BRIMONIDINE TARTRATE 0.2% OPHTHALMIC 5 ML BOTTLE OD SCH (16:39)
[2018-05-25] MEDS ORDERED: PIPERACILLIN/TAZOBACTAM 2.25 GM VIAL IVPB ONE ×2 (16:50→16:52)
[2018-05-25] MEDS ORDERED: DEXTROSE 5%-WATER - 50 ML IVPB ONE ×2 (16:51→16:52)
[2018-05-25] MEDS: TAMSULOSIN HCL 0.4 MG CAP PO SCH (16:56)
[2018-05-25] MEDS: PANTOPRAZOLE SOD 40 MG SUSPENSION PACKET PEG SCH (17:00)
[2018-05-25] MEDS: LEVOTHYROXINE NA 50 MCG TABLET (FP) PEG SCH (17:01)
[2018-05-25] MEDS: levETIRAcetam 500 MG/5 ML ORAL SOLUTION (UNIT-DOSE CUPS) PEG SCH ×2 (17:01→22:40)
[2018-05-25] MEDS: PIPERACILLIN/TAZOB 2.25 GM 2.25 GM in DEXTROSE 5%-WATER - 50 ML IVPB SCH ×2 (17:01→17:03)
[2018-05-25] MEDS: HEPARIN NA (PORCINE) 5,000 UNITS/ML 1ML VIAL SQ SCH (22:40)
[2018-05-26] MEDS ORDERED: DEXTROSE 5%-WATER - 50 ML IVPB ONE ×3 (01:24→17:47)
[2018-05-26] MEDS ORDERED: PIPERACILLIN/TAZOBACTAM 2.25 GM VIAL IVPB ONE ×3 (01:24→17:47)
[2018-05-26] MEDS: PIPERACILLIN/TAZOB 2.25 GM 2.25 GM in DEXTROSE 5%-WATER - 50 ML IVPB SCH ×3 (01:39→17:54)
[2018-05-26] MEDS: LEVOTHYROXINE NA 50 MCG TABLET (FP) PEG SCH (05:18)
[2018-05-26] MEDS: PHENYTOIN 100 MG/4 ML U-D CUP GT SCH ×3 (05:19→22:06)
[2018-05-26 06:19] LABS: BASO % 0.3 % (0-2.0); HEMATOCRIT 22.6 % (35.4-49); HEMOGLOBIN 7.8 GM/dL (11.7-16.9); LYMPH % 7.9 % (8-40); MCH 30.9 pg (25.7-33.7); MCHC 34.4 g/dl (32.0-35.9); MEAN CELL VOLUME 89.9 fl (80-96); MEAN PLT VOLUME 6.8 fl (7.5-11.1); MONO % 5.9 % (3.8-10.2); NEUT % 83.9 % (42.8-82.8); PLATELET COUNT 248 K/MM3 (134-434); RBC 2.51 M/mm3 (4.00-5.60); RDW 14.6 % (11.9-15.9); WHITE BLOOD COUNT 10.6 K/mm3 (4.0-10.0)
[2018-05-26 06:52] LABS: ALBUMIN 2.4 g/dl (3.4-5.0); ALK PHOS 117 U/L (45-117); ANION GAP 5 MMOL/L (8-16); BILIRUBIN,TOTAL 0.6 mg/dL (0.2-1); BLOOD UREA NITROGEN 59 mg/dL (7-18); CALCIUM 8.3 mg/dL (8.5-10.1); CHLORIDE 103 mmol/L (98-107); CO2 32 mmol/L (21-32); CREATININE 2.4 mg/dL (0.55-1.3); GLUCOSE,RANDOM 103 mg/dL (74-106); MAGNESIUM 2.2 mg/dL (1.8-2.4); PHOSPHOROUS 3.1 mg/dL (2.5-4.9); POTASSIUM 3.1 mmol/L (3.5-5.1); SGOT/AST 42 U/L (15-37); SGPT/ALT 44 U/L (13-61); SODIUM 140 mmol/L (136-145); TOT PROT 5.7 g/dl (6.4-8.2)
[2018-05-26] MEDS: ALBUTEROL SO4 2.5/IPRATROPIUM 0.5 INH SOL 3 ML VIAL.NEB. NEB SCH ×4 (08:00→15:55)
[2018-05-26] MEDS ORDERED: LIDOCAINE HCL 2% 100 MG/5 ML DISP.SYRIN IVPUSH ONE (10:00)
--- NOTE | 2018-05-26 10:32 | PN ---
Physical Exam: SUBJECTIVE: Patient seen and examined in his room, girlfriend Brandy Moss present. Ms. Moss reporting patient has been overly sedated since starting antiepilepics. OBJECTIVE: Vital Signs Period Temp Pulse Resp BP Sys/Michel Pulse Ox Last 24 Hr 98 F-99.6 F 99-105 20-20 123-153/63-96 93-95 GENERAL: Frail, awake, non-verbal in no acute distress. HEAD: Normal with no signs of trauma. EYES: Irregularly shaped pupil OS,sclera anicteric, conjunctiva clear. No ptosis. ENT: nares patent, oropharynx clear without exudates, dry mucous membranes NECK: Trachea midline, full range of motion, supple. LUNGS: Roncherous breath sounds, mouth breathing HEART: Tachycardia rate regular rhythm, S1, S2 without murmur, rub or gallop. ABDOMEN: +G tube upper abdomen, surrounding tissue without erythema, soft, nontender, nondistended, normoactive bowel sounds, no guarding, no rebound, no hepatosplenomegaly, no masses. : +Coudet catheter, bag with cloudy yellow urine EXTREMITIES: 2+ pulses, warm, well-perfused, MS: Right hand edematous dorsal surface, facial grimace with flexion and extension of fingers NEUROLOGICAL: Aphasia, no facial droop, tongue midline PSYCH: Normal mood, normal affect. SKIN: Warm, dry, normal turgor, no rashes or lesions noted Laboratory Results - last 24 hr 05/25/18 05/26/18 05/26/18 12:45 05:30 05:30 WBC 10.6 H RBC 2.51 L Hgb 7.8 L Hct 22.6 L D MCV 89.9 MCH 30.9 MCHC 34.4 RDW 14.6 Plt Count 248 D MPV 6.8 L Absolute Neuts (auto) 8.9 H Neutrophils % 83.9 H Lymphocytes % 7.9 L D Monocytes % 5.9 D Eosinophils % 2.0 D Basophils % 0.3 Nucleated RBC % 0 Sodium 140 Potassium 3.1 L Chloride 103 Carbon Dioxide 32 Anion Gap 5 L BUN 59 H Creatinine 2.4 H Creat Clearance w eGFR 25.74 Random Glucose 103 Lactic Acid 4.7 H* Calcium 8.3 L Phosphorus 3.1 Magnesium 2.2 Total Bilirubin 0.6 AST 42 H ALT 44 Alkaline Phosphatase 117 Total Protein 5.7 L Albumin 2.4 L Active Medications Generic Name Dose Route Start Last Admin Trade Name Freq PRN Reason Stop Dose Admin Acetaminophen 650 mg 05/25/18 12:01 Tylenol - PO Q6H PRN FEVER Albuterol/Ipratropium 1 amp 05/25/18 16:00 05/26/18 08:00 Duoneb - NEB 1 amp RQID KRISTY Administration Brimonidine Tartrate 1 drop 05/25/18 12:45 05/25/18 16:39 Alphagan 0.2% - OD 1 drop DAILY KRISTY Administration Heparin Sodium (Porcine) 5,000 unit 05/25/18 22:00 05/25/18 22:40 Heparin - SQ 5,000 unit BID KRISTY Administration Sodium Chloride 1,000 mls @ 50 mls/hr 05/25/18 12:15 05/25/18 16:44 Normal Saline - IV 05/26/18 12:04 50 mls/hr ASDIR KRISTY Administration Piperacillin Sod/Tazobactam 50 mls @ 100 mls/hr 05/25/18 14:00 05/26/18 01:39 Sod 2.25 gm/ Dextrose IVPB 100 mls/hr Q8H-IV KRISTY Administration Protocol Levetiracetam 500 mg 05/25/18 12:45 05/25/18 22:40 Keppra Oral Solution - PEG 500 mg BID KRISTY Administration Levothyroxine Sodium 50 mcg 05/25/18 12:45 05/26/18 05:18 Synthroid - PEG 50 mcg DAILY@0600 KRISTY Administration Pantoprazole Sodium 40 mg 05/25/18 12:45 05/25/18 17:00 Protonix Packets For Oral Suspension - PEG 40 mg DAILY KRISTY Administration Phenytoin Sodium 100 mg 05/26/18 06:00 05/26/18 05:19 Dilantin Oral Suspension - GT 100 mg TID KRISTY Administration Potassium Chloride 40 meq 05/26/18 10:00 K-Dur - PO 05/26/18 22:01 Q6H KRISTY Tamsulosin HCl 0.4 mg 05/25/18 12:30 05/25/18 16:56 Flomax - PO 0.4 mg DAILY@0830 KRISTY Administration Timolol Maleate 1 drop 05/25/18 12:15 05/25/18 16:39 Timoptic 0.5% OD 1 drop DAILY KRISTY Administration ASSESSMENT/PLAN: 87 year-old male with a PMH significant for HTN, CAD s/p CABG, CVA, CKD, AAA s/ p repair, seizure disorder, chronic respiratory failure, G-tube, dementia, and BPH. Admitted for severe sepsis secondary to pneumonia and MALINDA. Severe sepsis secondary to pneumonia --likely secondary to aspiration from G-tube --T 101, p 124, CXR with bilateral infiltrates --lactic acid 4.7 on admission, stat lactic acid ordered --WBC 8.5 -> 106 --BC negative --Continue Zosyn --ID Dr. Duncan following UTI -UA: 3+ Esterase, WBC 1280 -Patient on Zosyn -UC pending Acute on chronic kidney disease Azotemia -Left hydronephrosis visualized on abdominal CT -Cr remains 2.4, baseline 1.1 -14f Coudet catheter, yellow urine return inserted today -1,000 cc output. -IV fluids Hypertension --hold antihypertensives due to sepsis Seizure disorder --continue Gabi Franks --Consult with neurology ordered for reports of over-sedation. Chronic respiratory failure -Duonebs QID BPH --continue tamsulosin Hypothyroidism --continue levothyroxine Glaucoma --Continue Timolol and Alphagan gtts GI phrophylaxis -Protonix FEN Fluids: NS @ 50mL/hr Electrolytes: KCL 40 mg qday Nutrition: hold tube feeds for ow DVT Prophylaxis --Heparin SQ Dispo: pt currently requires further inpatient care. FULL CODE Visit type - Emergency Visit Emergency Visit: No - New Patient This patient is new to me today: Yes Date on this admission: 05/27/18 - Critical Care Critical Care patient: No
[2018-05-26] MEDS ORDERED: PT OWN MED DRAWER 7, Y5N ONE ×3 (10:43→21:53)
--- NOTE | 2018-05-26 11:20 | PROC ---
Procedure Note Procedure: Adhering to sterile technique, inserted a 14f coudet catheter, yellow urine return.
[2018-05-26] MEDS: HEPARIN NA (PORCINE) 5,000 UNITS/ML 1ML VIAL SQ SCH ×2 (11:28→22:03)
[2018-05-26] MEDS: PANTOPRAZOLE SOD 40 MG SUSPENSION PACKET PEG SCH (11:28)
[2018-05-26] MEDS: POTASSIUM CHLORIDE TABS 20 MEQ TABLET.ER (FP) PO SCH ×3 (11:28→22:03)
[2018-05-26] MEDS: TAMSULOSIN HCL 0.4 MG CAP PO SCH (11:28)
[2018-05-26] MEDS: TIMOLOL 0.5% OPHTHALMIC SOL 5 ML BOTTLE OD SCH (11:36)
[2018-05-26] MEDS: levETIRAcetam 500 MG/5 ML ORAL SOLUTION (UNIT-DOSE CUPS) PEG SCH ×2 (11:36→22:04)
[2018-05-26] MEDS: BRIMONIDINE TARTRATE 0.2% OPHTHALMIC 5 ML BOTTLE OD SCH (11:36)
--- NOTE | 2018-05-26 11:49 | PN ---
Progress Note, Physician History of Present Illness: lethargic non responsive remaining afebrile - Current Medication List Current Medications: Active Medications Acetaminophen (Tylenol -) 650 mg PO Q6H PRN PRN Reason: FEVER Albuterol/Ipratropium (Duoneb -) 1 amp NEB RQID [facility] Last Admin: 05/26/18 08:00 Dose: 1 amp Brimonidine Tartrate (Alphagan 0.2% -) 1 drop OD DAILY [facility] Last Admin: 05/26/18 11:36 Dose: 1 drop Heparin Sodium (Porcine) (Heparin -) 5,000 unit SQ BID [facility] Last Admin: 05/26/18 11:28 Dose: 5,000 unit Sodium Chloride (Normal Saline -) 1,000 mls @ 50 mls/hr IV ASDIR [facility] Stop: 05/26/18 12:04 Last Admin: 05/25/18 16:44 Dose: 50 mls/hr Piperacillin Sod/Tazobactam (Sod 2.25 gm/ Dextrose) 50 mls @ 100 mls/hr IVPB Q8H-IV KRISTY; Protocol Last Admin: 05/26/18 11:29 Dose: 100 mls/hr Levetiracetam (Keppra Oral Solution -) 500 mg PEG BID [facility] Last Admin: 05/26/18 11:36 Dose: 500 mg Levothyroxine Sodium (Synthroid -) 50 mcg PEG DAILY@0600 [facility] Last Admin: 05/26/18 05:18 Dose: 50 mcg Pantoprazole Sodium (Protonix Packets For Oral Suspension -) 40 mg PEG DAILY [facility] Last Admin: 05/26/18 11:28 Dose: 40 mg Phenytoin Sodium (Dilantin Oral Suspension -) 100 mg GT TID [facility] Last Admin: 05/26/18 05:19 Dose: 100 mg Potassium Chloride (K-Dur -) 40 meq PO Q6H [facility] Stop: 05/26/18 22:01 Last Admin: 05/26/18 11:28 Dose: 40 meq Tamsulosin HCl (Flomax -) 0.4 mg PO DAILY@0830 [facility] Last Admin: 05/26/18 11:28 Dose: 0.4 mg Timolol Maleate (Timoptic 0.5%) 1 drop OD DAILY [facility] Last Admin: 05/26/18 11:36 Dose: 1 drop - Objective Vital Signs: Vital Signs Temperature 98.2 F 05/26/18 06:00 Pulse Rate 103 H 05/26/18 06:00 Respiratory Rate 20 05/26/18 06:00 Blood Pressure 136/74 05/26/18 06:00 O2 Sat by Pulse Oximetry (%) 95 05/25/18 21:00 Constitutional: Yes: Calm Eyes: Yes: Conjunctiva Clear Neck: Yes: Supple, Trachea Midline Cardiovascular: Yes: Regular Rate and Rhythm Respiratory: Yes: Regular, CTA Bilaterally Gastrointestinal: Yes: Normal Bowel Sounds, Soft, Other (peg in place) Musculoskeletal: Yes: WNL Extremities: Yes: WNL Neurological: Yes: Lethargy Psychiatric: Yes: Other Labs: CBC, BMP 05/26/18 05:30 05/26/18 05:30 INR, PTT INR 1.27 (0.83-1.09) H 05/25/18 05:25 Assessment/Plan Problem List - Problems (1) Sepsis Code(s): A41.9 - SEPSIS, UNSPECIFIED ORGANISM (2) MALINDA (acute kidney injury) Code(s): N17.9 - ACUTE KIDNEY FAILURE, UNSPECIFIED (3) Aneurysm of infrarenal abdominal aorta Code(s): I71.4 - ABDOMINAL AORTIC ANEURYSM, WITHOUT RUPTURE (4) CAD (coronary artery disease) Code(s): I25.10 - ATHSCL HEART DISEASE OF [place] CORONARY ARTERY W/O ANG PCTRS Qualifiers: [place] vs. transplanted heart: [place] heart Associated angina: without angina (5) Cerebrovascular accident (CVA) Code(s): I63.9 - CEREBRAL INFARCTION, UNSPECIFIED (6) HTN (hypertension) Code(s): I10 - ESSENTIAL (PRIMARY) HYPERTENSION Qualifiers: Hypertension type: essential hypertension Qualified Code(s): I10 - Essential (primary) hypertension (7) History of endovascular stent graft for abdominal aortic aneurysm (AAA) Code(s): Z95.828 - PRESENCE OF OTHER VASCULAR IMPLANTS AND GRAFTS (8) Hyperlipidemia Code(s): E78.5 - HYPERLIPIDEMIA, UNSPECIFIED Qualifiers: Hyperlipidemia type: pure hypercholesterolemia Qualified Code(s): E78.00 - Pure hypercholesterolemia, unspecified; E78.0 - Pure hypercholesterolemia (9) Pneumonia Code(s): J18.9 - PNEUMONIA, UNSPECIFIED ORGANISM Qualifiers: Pneumonia type: aspiration pneumonia (10) Respiratory failure Code(s): J96.90 - RESPIRATORY FAILURE, UNSP, UNSP W HYPOXIA OR HYPERCAPNIA (11) S/P CABG (coronary artery bypass graft) Code(s): Z95.1 - PRESENCE OF AORTOCORONARY BYPASS GRAFT (12) Functional quadriplegia Code(s): R53.2 - FUNCTIONAL QUADRIPLEGIA Assessment/Plan 87 y.o. male with PMH of CVA, dysphagia s/p peg placement, CAD s/p CABG, AAA s/ p repair, seizure d.o. , HTN, and hypothyroidism presenting for vomiting of peg feeds Sepsis PNA - likely aspiration Respiratory distress MALINDA Lt hydronephrosis Fever CAD s/p CABG AAA repair CVA with dysphagia plan continue zosyn hydration rest as per the team monitor lactic acid
[2018-05-26 13:10] LABS: URINE APPEARANCE TURBID; URINE BILIRUBIN NEGATIVE (<2.0 mg/dL); URINE COLOR DKYELLOW; URINE GLUCOSE (UA) NEGATIVE (NEGATIVE); URINE KETONE NEGATIVE (NEGATIVE); URINE LEUK ESTERASE 3+ (NEGATIVE); URINE NITRITE NEGATIVE (NEGATIVE); URINE PROTEIN 2+ (NEGATIVE); URINE UROBILINOGEN NEGATIVE mg/dL (0.2-1.0)
[2018-05-26 13:20] LABS: YEAST MODERATE
--- NOTE | 2018-05-26 21:12 | CON.NEURO ---
Consult - Past Medical History SODA TESTER: Yes: Dementia Cardio/Vascular: Yes: CAD (CABG- 2004), HTN, Hyperlipdemia, Other (infrarenal AAA 4.7cm (November 2014)). No: AFIB, Aneurysm, Aortic Insufficiency, Aortic Stenosis, CHF, Deep Vein Thrombosis, HI, Mitral Insufficiency, Mitral Stenosis, Murmur, Pulmonary Hypertension Pulmonary: Yes: Pneumonia Gastrointestinal: Yes: Irritable Bowel Disease Musculoskeletal: Yes: Chronic low back pain (with radiculopathy) Rheumatology: Yes: Gout, Other (Polymyalgia Rheumatica) Endocrine: Yes: Hypothyroidism. No: Brandt's Disease, Archie's Disease, Diabetes Insipidus, Diabetes Mellitus, Hyperparathyroidism, Hyperthyroidism, Osteopenia, SIADH, Other - Past Surgical History Past Surgical History: Yes: AAA Repair, Appendectomy, CABG ([facility]), Tonsillectomy. No: None, AICD, Amputation, Arthrosocopy, AV Fistula/Graft, Bariatric Surgery, Breast Biopsy, Bypass, Carotid Endarterectomy, Cataract Removal, Cholecystectomy, Colectomy, Colonoscopy, Colostomy, Craniotomy, C- Section, Cystectomy, Hernia Repair, Hysterectomy, Ileal Conduit, Ileosotomy, Joint Replacement, Kidney Transplant, Laminectomy, Liver Transplant, Mastectomy , Nephrectomy, Oopherectomy, Orchiectomy, Permanent Pacemaker, Prostatectomy, Splenectomy, Stent, Thoracotomy, TURP, Tubal Ligation, Upper Endoscopy, Valve Replacement, Vasectomy, Vein Stripping/Ligation - Alcohol/Substance Use Hx Alcohol Use: No - Smoking History Smoking history: Unknown if ever smoked Have you smoked in the past 12 months: No Aproximately how many cigarettes per day: 0 - Social History ADL: Support Services History of Recent Travel: No Home Medications - Allergies Allergies/Adverse Reactions: Allergies Allergy/AdvReac Type Severity Reaction Status Date / Time No Known Allergies Allergy Verified 05/25/18 13:10 - Home Medications Home Medications: Ambulatory Orders Brimonidine Tartrate/Timolol [Combigan 0.2%-0.5% Eye Drops] 1 drop OD DAILY 01/13 Atorvastatin Ca [Lipitor] 10 mg NGT HS tablet 04/07/18 Pantoprazole Suspension [Protonix Packets For Oral Suspension -] 40 mg PEG DAILY packet 04/07/18 Amlodipine Besylate [Norvasc -] 10 mg PEG DAILY #30 tablet 04/08/18 Docusate Sodium [Colace -] 100 mg PEG DAILY #60 capsule 04/08/18 Levothyroxine [Synthroid -] 50 mcg PEG DAILY@0600 #0 syr 04/08/18 Metoprolol Tartrate [Lopressor -] 50 mg PEG BID #60 tablet 04/08/18 Albuterol 2.5/Ipratropium 0.5 [Duoneb -] 1 neb IH QID 04/27/18 Guaifenesin 400 mg NGT BID 04/27/18 Scopolamine 1 each TD ASDIR 04/27/18 levETIRAcetam [Keppra Oral Solution -] 500 mg PEG BID 04/27/18 Brimonidine Tartrate [Alphagan 0.2% -] 1 drop OD DAILY drops 05/01/18 Phenytoin Oral Suspension [Dilantin Oral Suspension 100 MG/4 ML] 100 mg GT Q8H 30 Days cup 05/01/18 Tamsulosin HCl [Flomax] 0.4 mg PO DAILY 30 Days #30 cap.er.24h 05/01/18 Physical Exam-Neuro Vital Signs: Vital Signs Temperature 99.9 F H 05/26/18 16:30 Pulse Rate 95 H 05/26/18 16:30 Respiratory Rate 18 05/26/18 16:30 Blood Pressure 127/62 05/26/18 16:30 O2 Sat by Pulse Oximetry (%) 94 L 05/26/18 09:00 Labs: CBC, BMP 05/26/18 05:30 05/26/18 05:30 INR, PTT INR 1.27 (0.83-1.09) H 05/25/18 05:25 Assessment/Plan cc History of Subdural hematoma, and family is concern about getting too much AED HPI cc 87 year old man known to me , He has history of seizure following subdural hemato evacuation. It was evacuated twice. Patient also have history of CKD, Stroke, cabg, ibs, peg tube placement. He appears to be in his baseline and no seizure since admission, He was brought to hospital for pneumonia , fever . There is no change in his mental status or seizure like activity. ROS , FH, Surgical History Reviewed in chart Allergies Allergy/AdvReac Type Severity Reaction Status Date / Time No Known Allergies Allergy Verified 04/27/18 16:40 Medication Keppra 500 mg bid DIlantin 100 mg tid NEUROLOGICAL EXAMINATION: He is remain comfortable, would open eye, non verbal and on asking how is he doing? he was trying to say but no clear words coming out. He seems to comprehend. There is no twitching or seizure activity was seen Left isde is moving more than right side pupils are small and left side there is eivdence of old surgery ? glaucoma Ct no ct head done this time Assessment : 87 year old male with multiple medical problem had subdural hematoma and has evacuation done by dr guerra twice. He is non verbal as baseline. Girl friend seems to think that his mental status is due to high dose of AED. He has not had any seizure recently. Plan: reduce dilantin to 100 mg bid and continue same dose of keppra - continue to treat pneumonia as per primary team - would follow with primary Thanking you so much Ashwin Stokes MD
[2018-05-27] MEDS ORDERED: PIPERACILLIN/TAZOBACTAM 2.25 GM VIAL IVPB ONE ×3 (01:09→17:37)
[2018-05-27] MEDS ORDERED: DEXTROSE 5%-WATER - 50 ML IVPB ONE ×3 (01:09→17:38)
[2018-05-27] MEDS: PIPERACILLIN/TAZOB 2.25 GM 2.25 GM in DEXTROSE 5%-WATER - 50 ML IVPB SCH ×3 (01:18→18:17)
[2018-05-27] MEDS: LEVOTHYROXINE NA 50 MCG TABLET (FP) PEG SCH (05:25)
[2018-05-27] MEDS: ALBUTEROL SO4 2.5/IPRATROPIUM 0.5 INH SOL 3 ML VIAL.NEB. NEB SCH ×4 (08:58→20:10)
[2018-05-27] MEDS ORDERED: PT OWN MED DRAWER 7, Y5N ONE ×3 (10:56→21:56)
[2018-05-27] MEDS: PHENYTOIN 100 MG/4 ML U-D CUP GT SCH ×2 (11:00→21:58)
[2018-05-27] MEDS: TAMSULOSIN HCL 0.4 MG CAP PO SCH (11:14)
[2018-05-27] MEDS: BRIMONIDINE TARTRATE 0.2% OPHTHALMIC 5 ML BOTTLE OD SCH (11:17)
[2018-05-27] MEDS: HEPARIN NA (PORCINE) 5,000 UNITS/ML 1ML VIAL SQ SCH ×2 (11:18→21:53)
[2018-05-27] MEDS: TIMOLOL 0.5% OPHTHALMIC SOL 5 ML BOTTLE OD SCH (11:19)
[2018-05-27] MEDS: levETIRAcetam 500 MG/5 ML ORAL SOLUTION (UNIT-DOSE CUPS) PEG SCH ×2 (11:19→21:54)
[2018-05-27] MEDS: PANTOPRAZOLE SOD 40 MG SUSPENSION PACKET PEG SCH (11:19)
--- NOTE | 2018-05-27 11:45 | PN ---
Progress Note, Physician History of Present Illness: patient looking much more awake and alert smiling looks in no discomfort - Current Medication List Current Medications: Active Medications Acetaminophen (Tylenol -) 650 mg PO Q6H PRN PRN Reason: FEVER Albuterol/Ipratropium (Duoneb -) 1 amp NEB RQID [facility] Last Admin: 05/27/18 08:58 Dose: 1 amp Brimonidine Tartrate (Alphagan 0.2% -) 1 drop OD DAILY [facility] Last Admin: 05/27/18 11:17 Dose: 1 drop Heparin Sodium (Porcine) (Heparin -) 5,000 unit SQ BID [facility] Last Admin: 05/27/18 11:18 Dose: 5,000 unit Piperacillin Sod/Tazobactam (Sod 2.25 gm/ Dextrose) 50 mls @ 100 mls/hr IVPB Q8H-IV [facility]; Protocol Last Admin: 05/27/18 11:21 Dose: 100 mls/hr Levetiracetam (Keppra Oral Solution -) 500 mg PEG BID [facility] Last Admin: 05/27/18 11:19 Dose: 500 mg Levothyroxine Sodium (Synthroid -) 50 mcg PEG DAILY@0600 [facility] Last Admin: 05/27/18 05:25 Dose: 50 mcg Pantoprazole Sodium (Protonix Packets For Oral Suspension -) 40 mg PEG DAILY [facility] Last Admin: 05/27/18 11:19 Dose: 40 mg Phenytoin Sodium (Dilantin Oral Suspension -) 100 mg GT BID [facility] Last Admin: 05/26/18 22:06 Dose: 100 mg Tamsulosin HCl (Flomax -) 0.4 mg PO DAILY@0830 [facility] Last Admin: 05/27/18 11:14 Dose: 0.4 mg Timolol Maleate (Timoptic 0.5%) 1 drop OD DAILY [facility] Last Admin: 05/27/18 11:19 Dose: 1 drop - Objective Vital Signs: Vital Signs Temperature 99.2 F 05/27/18 05:52 Pulse Rate 90 05/27/18 05:52 Respiratory Rate 20 05/27/18 05:52 Blood Pressure 149/76 05/27/18 05:52 O2 Sat by Pulse Oximetry (%) 94 L 05/26/18 21:00 Constitutional: Yes: No Distress, Calm, Thin Cardiovascular: Yes: Regular Rate and Rhythm Respiratory: Yes: Regular, CTA Bilaterally Gastrointestinal: Yes: Normal Bowel Sounds, Soft Musculoskeletal: Yes: WNL Extremities: Yes: WNL Neurological: Yes: Other (dementia) Psychiatric: Yes: Other Labs: CBC, BMP 05/26/18 05:30 05/26/18 05:30 INR, PTT INR 1.27 (0.83-1.09) H 05/25/18 05:25 Assessment/Plan Problem List - Problems (1) Sepsis Code(s): A41.9 - SEPSIS, UNSPECIFIED ORGANISM (2) MALINDA (acute kidney injury) Code(s): N17.9 - ACUTE KIDNEY FAILURE, UNSPECIFIED (3) Aneurysm of infrarenal abdominal aorta Code(s): I71.4 - ABDOMINAL AORTIC ANEURYSM, WITHOUT RUPTURE (4) CAD (coronary artery disease) Code(s): I25.10 - ATHSCL HEART DISEASE OF [place] CORONARY ARTERY W/O ANG PCTRS Qualifiers: [place] vs. transplanted heart: [place] heart Associated angina: without angina (5) Cerebrovascular accident (CVA) Code(s): I63.9 - CEREBRAL INFARCTION, UNSPECIFIED (6) HTN (hypertension) Code(s): I10 - ESSENTIAL (PRIMARY) HYPERTENSION Qualifiers: Hypertension type: essential hypertension Qualified Code(s): I10 - Essential (primary) hypertension (7) History of endovascular stent graft for abdominal aortic aneurysm (AAA) Code(s): Z95.828 - PRESENCE OF OTHER VASCULAR IMPLANTS AND GRAFTS (8) Hyperlipidemia Code(s): E78.5 - HYPERLIPIDEMIA, UNSPECIFIED Qualifiers: Hyperlipidemia type: pure hypercholesterolemia Qualified Code(s): E78.00 - Pure hypercholesterolemia, unspecified; E78.0 - Pure hypercholesterolemia (9) Pneumonia Code(s): J18.9 - PNEUMONIA, UNSPECIFIED ORGANISM Qualifiers: Pneumonia type: aspiration pneumonia (10) Respiratory failure Code(s): J96.90 - RESPIRATORY FAILURE, UNSP, UNSP W HYPOXIA OR HYPERCAPNIA (11) S/P CABG (coronary artery bypass graft) Code(s): Z95.1 - PRESENCE OF AORTOCORONARY BYPASS GRAFT (12) Functional quadriplegia Code(s): R53.2 - FUNCTIONAL QUADRIPLEGIA 13 gm positive bacteria 14 uti Assessment/Plan 87 y.o. male with PMH of CVA, dysphagia s/p peg placement, CAD s/p CABG, AAA s/ p repair, seizure d.o. , HTN, and hypothyroidism presenting for vomiting of peg feeds Sepsis PNA - likely aspiration Respiratory distress MALINDA Lt hydronephrosis Fever CAD s/p CABG AAA repair CVA with dysphagia blood and urine cx noted i think this might be a false positive plan continue current mgmt await for identification of the species will recheck blood cx rest as per the team
[2018-05-27 12:22] LABS: BASO % 0.4 % (0-2.0); EOS % 3.9 % (0-4.5); HEMATOCRIT 23.3 % (35.4-49); HEMOGLOBIN 7.8 GM/dL (11.7-16.9); MCH 29.9 pg (25.7-33.7); MCHC 33.5 g/dl (32.0-35.9); MEAN CELL VOLUME 89.2 fl (80-96); MEAN PLT VOLUME 7.1 fl (7.5-11.1); MONO % 6.5 % (3.8-10.2); NEUT % 80.2 % (42.8-82.8); PLATELET COUNT 266 K/MM3 (134-434); RBC 2.62 M/mm3 (4.00-5.60); RDW 14.2 % (11.9-15.9); WHITE BLOOD COUNT 9.1 K/mm3 (4.0-10.0)
--- NOTE | 2018-05-27 12:39 | PN ---
Physical Exam: SUBJECTIVE: Patient seen and examined in his room. OBJECTIVE: Vital Signs Period Temp Pulse Resp BP Sys/Michel Pulse Ox Last 24 Hr 98.2 F-99.9 F 87-103 18-20 113-149/62-76 94 GENERAL: Appears more alert than yesterday, frail, thin, non-verbal in no acute distress. HEAD: Normal with no signs of trauma. EYES: Irregularly shaped left pupil, extraocular movements intact, sclera anicteric, conjunctiva clear. No ptosis. ENT: +NC, nares patent, oropharynx clear without exudates, dry mucus membranes. NECK: Trachea midline, full range of motion, supple. LUNGS: Breath sounds equal, clear to auscultation bilaterally, no wheezes, no crackles, no accessory muscle use. HEART: Rapid rate and regular rhythm, S1, S2 without murmur, rub or gallop. ABDOMEN: +PEG in mid upper abdomen, no erythema to surrounding tissue, soft, nontender, nondistended, normoactive bowel sounds, no guarding, no rebound, no hepatosplenomegaly, no masses. : +Coudet catheter draining cloudy yellow urine EXTREMITIES: 2+ pulses, warm, well-perfused, no edema. NEUROLOGICAL: Aphasia PSYCH: Normal mood, normal affect. SKIN: Warm, dry, normal turgor, no rashes or lesions noted Laboratory Results - last 24 hr 05/25/18 05/26/18 05/26/18 05:25 12:30 15:10 WBC RBC Hgb Hct MCV MCH MCHC RDW Plt Count MPV Absolute Neuts (auto) Neutrophils % Lymphocytes % Monocytes % Eosinophils % Basophils % Nucleated RBC % VBG pH 7.47 H POC VBG pCO2 45.6 POC VBG pO2 36.7 Mixed VBG HCO3 33.1 H Lactic Acid 1.6 Urine Color Dkyellow Urine Appearance Turbid Urine pH 7.0 Ur Specific [place] 1.013 Urine Protein 2+ H Urine Glucose (UA) Negative Urine Ketones Negative Urine Blood 1+ H Urine Nitrite Negative Urine Bilirubin Negative Urine Urobilinogen Negative Ur Leukocyte Esterase 3+ H Urine WBC (Auto) 1280 Urine RBC (Auto) 20 Urine Yeast Moderate 05/27/18 11:50 WBC 9.1 RBC 2.62 L Hgb 7.8 L Hct 23.3 L MCV 89.2 MCH 29.9 MCHC 33.5 RDW 14.2 Plt Count 266 MPV 7.1 L Absolute Neuts (auto) 7.3 Neutrophils % 80.2 Lymphocytes % 9.0 Monocytes % 6.5 Eosinophils % 3.9 D Basophils % 0.4 Nucleated RBC % 0 VBG pH POC VBG pCO2 POC VBG pO2 Mixed VBG HCO3 Lactic Acid Urine Color Urine Appearance Urine pH Ur Specific [place] Urine Protein Urine Glucose (UA) Urine Ketones Urine Blood Urine Nitrite Urine Bilirubin Urine Urobilinogen Ur Leukocyte Esterase Urine WBC (Auto) Urine RBC (Auto) Urine Yeast Active Medications Generic Name Dose Route Start Last Admin Trade Name Freq PRN Reason Stop Dose Admin Acetaminophen 650 mg 05/25/18 12:01 Tylenol - PO Q6H PRN FEVER Albuterol/Ipratropium 1 amp 05/25/18 16:00 05/27/18 08:58 Duoneb - NEB 1 amp RQID KRISTY Administration Brimonidine Tartrate 1 drop 05/25/18 12:45 05/27/18 11:17 Alphagan 0.2% - OD 1 drop DAILY KRISTY Administration Heparin Sodium (Porcine) 5,000 unit 05/25/18 22:00 05/27/18 11:18 Heparin - SQ 5,000 unit BID KRISTY Administration Piperacillin Sod/Tazobactam 50 mls @ 100 mls/hr 05/25/18 14:00 05/27/18 11:21 Sod 2.25 gm/ Dextrose IVPB 100 mls/hr Q8H-IV KRISTY Administration Protocol Sodium Chloride 1,000 mls @ 75 mls/hr 05/27/18 12:00 Normal Saline - IV ASDIR KRISTY Levetiracetam 500 mg 05/25/18 12:45 05/27/18 11:19 Keppra Oral Solution - PEG 500 mg BID KRISTY Administration Levothyroxine Sodium 50 mcg 05/25/18 12:45 05/27/18 05:25 Synthroid - PEG 50 mcg DAILY@0600 KRISTY Administration Pantoprazole Sodium 40 mg 05/25/18 12:45 05/27/18 11:19 Protonix Packets For Oral Suspension - PEG 40 mg DAILY KRISTY Administration Phenytoin Sodium 100 mg 05/26/18 22:00 05/26/18 22:06 Dilantin Oral Suspension - GT 100 mg BID KRISTY Administration Tamsulosin HCl 0.4 mg 05/25/18 12:30 05/27/18 11:14 Flomax - PO 0.4 mg DAILY@0830 KRISTY Administration Timolol Maleate 1 drop 05/25/18 12:15 05/27/18 11:19 Timoptic 0.5% OD 1 drop DAILY KRISTY Administration ASSESSMENT/PLAN: ASSESSMENT/PLAN: 87 year-old male with a PMH significant for HTN, CAD s/p CABG, CVA, CKD, AAA s/ p repair, seizure disorder, chronic respiratory failure, G-tube, dementia, and BPH. Admitted for severe sepsis secondary to pneumonia and MALINDA. Severe sepsis secondary to pneumonia --likely secondary to aspiration from G-tube --CXR with bilateral infiltrates --lactic acid 4.7 -> 1.6 --WBC 8.5 -> 10.6 -> 8.4 --Patient still with elevated temp today, 99.2 --Preliminary Cultures: Urine: group D strep or entero coccus, Blood - no growth -New BC ordered --Continue Zosyn --ID Dr. Duncan following UTI -UA: 3+ Esterase, WBC 1280 -Patient on Zosyn Acute on chronic kidney disease Azotemia -Left hydronephrosis visualized on abdominal CT -Cr remains 2.4, baseline 1.1, CMP pending -14f Coudet catheter, yellow urine return inserted yesterday, draining well -IV fluids Hypertension --hold antihypertensives due to sepsis Seizure disorder --Seen by neurologist Dr. Stokes --continue current dose of Keppra --Reduce dilantin to 100 mg TID to BID Chronic respiratory failure -Improved compared to yesterday, less labored, no ronchi -Duphan QID -O2 @ 2LPM BPH --Continue tamsulosin Hypothyroidism --Continue levothyroxine Glaucoma --Continue Timolol and Alphagan gtts GI phrophylaxis --Protonix FEN Fluids: NS @ 50mL/hr Electrolytes: KCL 40 mg qday Nutrition: hold tube feeds for now DVT Prophylaxis --Heparin SQ Dispo: pt currently requires further inpatient care. DNR Visit type - Emergency Visit Emergency Visit: No - New Patient This patient is new to me today: No - Critical Care Critical Care patient: No
[2018-05-27 13:00] LABS: BASO % 0.4 % (0-2.0); EOS % 4.5 % (0-4.5); HEMATOCRIT 21.4 % (35.4-49); HEMOGLOBIN 7.3 GM/dL (11.7-16.9); LYMPH % 9.4 % (8-40); MCH 30.1 pg (25.7-33.7); MEAN CELL VOLUME 88.6 fl (80-96); MONO % 7.1 % (3.8-10.2); NEUT % 78.6 % (42.8-82.8); PLATELET COUNT 252 K/MM3 (134-434); RBC 2.41 M/mm3 (4.00-5.60); RDW 14.4 % (11.9-15.9); WHITE BLOOD COUNT 8.4 K/mm3 (4.0-10.0)
[2018-05-27 13:08] LABS: ALBUMIN 2.5 g/dl (3.4-5.0); ALK PHOS 122 U/L (45-117); ANION GAP 11 MMOL/L (8-16); BILIRUBIN,TOTAL 0.5 mg/dL (0.2-1); BLOOD UREA NITROGEN 49 mg/dL (7-18); CALCIUM 8.6 mg/dL (8.5-10.1); CHLORIDE 110 mmol/L (98-107); CO2 27 mmol/L (21-32); GLUCOSE,RANDOM 98 mg/dL (74-106); POTASSIUM 3.5 mmol/L (3.5-5.1); SGOT/AST 42 U/L (15-37); SGPT/ALT 44 U/L (13-61); SODIUM 148 mmol/L (136-145)
[2018-05-27 13:29] LABS: ALBUMIN 2.3 g/dl (3.4-5.0); ALK PHOS 118 U/L (45-117); ANION GAP 10 MMOL/L (8-16); BILIRUBIN,TOTAL 0.4 mg/dL (0.2-1); BLOOD UREA NITROGEN 48 mg/dL (7-18); CALCIUM 8.3 mg/dL (8.5-10.1); CHLORIDE 110 mmol/L (98-107); CO2 28 mmol/L (21-32); GLUCOSE,RANDOM 134 mg/dL (74-106); POTASSIUM 3.3 mmol/L (3.5-5.1); SGOT/AST 43 U/L (15-37); SGPT/ALT 39 U/L (13-61); SODIUM 147 mmol/L (136-145); TOT PROT 5.7 g/dl (6.4-8.2)
[2018-05-27] MEDS: SODIUM CHLORIDE 1,000 ML IV SCH (14:44)
[2018-05-28] MEDS ORDERED: PIPERACILLIN/TAZOBACTAM 2.25 GM VIAL IVPB ONE ×3 (01:03→17:09)
[2018-05-28] MEDS ORDERED: DEXTROSE 5%-WATER - 50 ML IVPB ONE ×3 (01:04→17:10)
[2018-05-28] MEDS: PIPERACILLIN/TAZOB 2.25 GM 2.25 GM in DEXTROSE 5%-WATER - 50 ML IVPB SCH ×3 (01:09→17:18)
[2018-05-28] MEDS: LEVOTHYROXINE NA 50 MCG TABLET (FP) PEG SCH (05:35)
[2018-05-28] MEDS: SODIUM CHLORIDE 1,000 ML IV SCH ×2 (05:36→18:27)
[2018-05-28] MEDS: ALBUTEROL SO4 2.5/IPRATROPIUM 0.5 INH SOL 3 ML VIAL.NEB. NEB SCH ×3 (08:00→22:00)
[2018-05-28 08:28] LABS: HEMATOCRIT 25.9 % (35.4-49); HEMOGLOBIN 8.8 GM/dL (11.7-16.9); MCH 30.2 pg (25.7-33.7); MCHC 33.8 g/dl (32.0-35.9); MEAN CELL VOLUME 89.3 fl (80-96); MEAN PLT VOLUME 7.5 fl (7.5-11.1); PLATELET COUNT 299 K/MM3 (134-434); RDW 14.3 % (11.9-15.9); WHITE BLOOD COUNT 7.1 K/mm3 (4.0-10.0)
[2018-05-28 08:48] LABS: ANION GAP 11 MMOL/L (8-16); BLOOD UREA NITROGEN 38 mg/dL (7-18); CALCIUM 8.6 mg/dL (8.5-10.1); CHLORIDE 111 mmol/L (98-107); CO2 26 mmol/L (21-32); CREATININE 1.7 mg/dL (0.55-1.3); GLUCOSE,RANDOM 75 mg/dL (74-106); POTASSIUM 3.1 mmol/L (3.5-5.1); SODIUM 148 mmol/L (136-145)
[2018-05-28] MEDS ORDERED: PT OWN MED DRAWER 7, Y5N ONE ×2 (09:14→20:45)
[2018-05-28] MEDS: HEPARIN NA (PORCINE) 5,000 UNITS/ML 1ML VIAL SQ SCH ×2 (09:16→21:44)
[2018-05-28] MEDS: TIMOLOL 0.5% OPHTHALMIC SOL 5 ML BOTTLE OD SCH (09:17)
[2018-05-28] MEDS: PANTOPRAZOLE SOD 40 MG SUSPENSION PACKET PEG SCH (09:17)
[2018-05-28] MEDS: BRIMONIDINE TARTRATE 0.2% OPHTHALMIC 5 ML BOTTLE OD SCH (09:17)
[2018-05-28] MEDS: TAMSULOSIN HCL 0.4 MG CAP PO SCH (09:17)
[2018-05-28] MEDS: levETIRAcetam 500 MG/5 ML ORAL SOLUTION (UNIT-DOSE CUPS) PEG SCH ×2 (09:17→21:20)
[2018-05-28] MEDS: PHENYTOIN 100 MG/4 ML U-D CUP GT SCH ×2 (09:18→21:19)
--- NOTE | 2018-05-28 09:45 | PN ---
Progress Note, Physician History of Present Illness: patient doing well more awake and alert - Current Medication List Current Medications: Active Medications Acetaminophen (Tylenol -) 650 mg PO Q6H PRN PRN Reason: FEVER Albuterol/Ipratropium (Duoneb -) 1 amp NEB RQID [facility] Last Admin: 05/28/18 08:00 Dose: 1 amp Brimonidine Tartrate (Alphagan 0.2% -) 1 drop OD DAILY [facility] Last Admin: 05/28/18 09:17 Dose: 1 drop Heparin Sodium (Porcine) (Heparin -) 5,000 unit SQ BID [facility] Last Admin: 05/28/18 09:16 Dose: 5,000 unit Piperacillin Sod/Tazobactam (Sod 2.25 gm/ Dextrose) 50 mls @ 100 mls/hr IVPB Q8H-IV [facility]; Protocol Last Admin: 05/28/18 09:17 Dose: 100 mls/hr Sodium Chloride (Normal Saline -) 1,000 mls @ 75 mls/hr IV ASDIR [facility] Last Admin: 05/28/18 05:36 Dose: 75 mls/hr Levetiracetam (Keppra Oral Solution -) 500 mg PEG BID [facility] Last Admin: 05/28/18 09:17 Dose: 500 mg Levothyroxine Sodium (Synthroid -) 50 mcg PEG DAILY@0600 [facility] Last Admin: 05/28/18 05:35 Dose: 50 mcg Pantoprazole Sodium (Protonix Packets For Oral Suspension -) 40 mg PEG DAILY [facility] Last Admin: 05/28/18 09:17 Dose: 40 mg Phenytoin Sodium (Dilantin Oral Suspension -) 100 mg GT BID [facility] Last Admin: 05/28/18 09:18 Dose: 100 mg Tamsulosin HCl (Flomax -) 0.4 mg PO DAILY@0830 [facility] Last Admin: 05/28/18 09:17 Dose: 0.4 mg Timolol Maleate (Timoptic 0.5%) 1 drop OD DAILY [facility] Last Admin: 05/28/18 09:17 Dose: 1 drop - Objective Vital Signs: Vital Signs Temperature 98 F 05/28/18 05:55 Pulse Rate 90 05/28/18 05:55 Respiratory Rate 18 05/28/18 05:55 Blood Pressure 159/84 05/28/18 05:55 O2 Sat by Pulse Oximetry (%) 96 05/27/18 21:00 Constitutional: Yes: No Distress, Calm Cardiovascular: Yes: Regular Rate and Rhythm Respiratory: Yes: Regular, CTA Bilaterally Gastrointestinal: Yes: Normal Bowel Sounds, Soft Musculoskeletal: Yes: WNL Extremities: Yes: WNL Neurological: Yes: Alert Psychiatric: Yes: Alert Labs: CBC, BMP 05/28/18 05:30 05/28/18 05:30 INR, PTT INR 1.27 (0.83-1.09) H 05/25/18 05:25 Assessment/Plan Problem List - Problems (1) Sepsis Code(s): A41.9 - SEPSIS, UNSPECIFIED ORGANISM (2) MALINDA (acute kidney injury) Code(s): N17.9 - ACUTE KIDNEY FAILURE, UNSPECIFIED (3) Aneurysm of infrarenal abdominal aorta Code(s): I71.4 - ABDOMINAL AORTIC ANEURYSM, WITHOUT RUPTURE (4) CAD (coronary artery disease) Code(s): I25.10 - ATHSCL HEART DISEASE OF [place] CORONARY ARTERY W/O ANG PCTRS Qualifiers: [place] vs. transplanted heart: [place] heart Associated angina: without angina (5) Cerebrovascular accident (CVA) Code(s): I63.9 - CEREBRAL INFARCTION, UNSPECIFIED (6) HTN (hypertension) Code(s): I10 - ESSENTIAL (PRIMARY) HYPERTENSION Qualifiers: Hypertension type: essential hypertension Qualified Code(s): I10 - Essential (primary) hypertension (7) History of endovascular stent graft for abdominal aortic aneurysm (AAA) Code(s): Z95.828 - PRESENCE OF OTHER VASCULAR IMPLANTS AND GRAFTS (8) Hyperlipidemia Code(s): E78.5 - HYPERLIPIDEMIA, UNSPECIFIED Qualifiers: Hyperlipidemia type: pure hypercholesterolemia Qualified Code(s): E78.00 - Pure hypercholesterolemia, unspecified; E78.0 - Pure hypercholesterolemia (9) Pneumonia Code(s): J18.9 - PNEUMONIA, UNSPECIFIED ORGANISM Qualifiers: Pneumonia type: aspiration pneumonia (10) Respiratory failure Code(s): J96.90 - RESPIRATORY FAILURE, UNSP, UNSP W HYPOXIA OR HYPERCAPNIA (11) S/P CABG (coronary artery bypass graft) Code(s): Z95.1 - PRESENCE OF AORTOCORONARY BYPASS GRAFT (12) Functional quadriplegia Code(s): R53.2 - FUNCTIONAL QUADRIPLEGIA 13 gm positive bacteria 14 uti Assessment/Plan 87 y.o. male with PMH of CVA, dysphagia s/p peg placement, CAD s/p CABG, AAA s/ p repair, seizure d.o. , HTN, and hypothyroidism presenting for vomiting of peg feeds Sepsis PNA - likely aspiration Respiratory distress MALINDA Lt hydronephrosis Fever CAD s/p CABG AAA repair CVA with dysphagia plan await for cx report urine cx report and sensitivity noted continue iv abx for now once patient starts eating then will decide final plan
--- NOTE | 2018-05-28 10:58 | PN ---
Physical Exam: SUBJECTIVE: Patient seen and examined in his room OBJECTIVE: Vital Signs Period Temp Pulse Resp BP Sys/Michel Pulse Ox Last 24 Hr 96.6 F-100.4 F 84-93 16-36 136-159/70-89 96 GENERAL: Appears more alert than admission, frail, thin, non-verbal, smiling, in no acute distress. HEAD: Normal with no signs of trauma. EYES: Irregularly shaped left pupil, extraocular movements intact, sclera anicteric, conjunctiva clear. No ptosis. ENT: +NC, nares patent, oropharynx clear without exudates, dry mucus membranes. NECK: Trachea midline, full range of motion, supple. LUNGS: Breath sounds equal, clear to auscultation bilaterally, no wheezes, no crackles, no accessory muscle use. HEART: Rapid rate and regular rhythm, S1, S2 without murmur, rub or gallop. ABDOMEN: +PEG in mid upper abdomen, no erythema to surrounding tissue, soft, nontender, nondistended, normoactive bowel sounds, no guarding, no rebound, no hepatosplenomegaly, no masses. : +Coudet catheter draining cloudy yellow urine EXTREMITIES: 2+ pulses, warm, well-perfused, no edema. NEUROLOGICAL: Aphasia PSYCH: Normal mood, normal affect. SKIN: Warm, dry, normal turgor, no rashes or lesions noted Laboratory Results - last 24 hr 05/27/18 05/27/18 05/27/18 11:50 11:50 12:52 WBC 9.1 8.4 RBC 2.62 L 2.41 L Hgb 7.8 L 7.3 L Hct 23.3 L 21.4 L MCV 89.2 88.6 MCH 29.9 30.1 MCHC 33.5 34.0 RDW 14.2 14.4 Plt Count 266 252 MPV 7.1 L 7.0 L Absolute Neuts (auto) 7.3 6.7 Neutrophils % 80.2 78.6 Lymphocytes % 9.0 9.4 Monocytes % 6.5 7.1 Eosinophils % 3.9 D 4.5 Basophils % 0.4 0.4 Nucleated RBC % 0 0 Sodium 148 H Potassium 3.5 Chloride 110 H Carbon Dioxide 27 Anion Gap 11 BUN 49 H Creatinine 2.0 H Creat Clearance w eGFR 31.76 Random Glucose 98 Calcium 8.6 Magnesium Total Bilirubin 0.5 AST 42 H ALT 44 Alkaline Phosphatase 122 H Total Protein 6.0 L Albumin 2.5 L 05/27/18 05/28/18 05/28/18 12:52 05:30 05:30 WBC 7.1 RBC 2.90 L Hgb 8.8 L Hct 25.9 L D MCV 89.3 MCH 30.2 MCHC 33.8 RDW 14.3 Plt Count 299 MPV 7.5 Absolute Neuts (auto) Neutrophils % Lymphocytes % Monocytes % Eosinophils % Basophils % Nucleated RBC % Sodium 147 H 148 H Potassium 3.3 L 3.1 L Chloride 110 H 111 H Carbon Dioxide 28 26 Anion Gap 10 11 BUN 48 H 38 H Creatinine 2.0 H 1.7 H Creat Clearance w eGFR 31.76 38.32 Random Glucose 134 H 75 Calcium 8.3 L 8.6 Magnesium 2.0 Total Bilirubin 0.4 AST 43 H ALT 39 Alkaline Phosphatase 118 H Total Protein 5.7 L Albumin 2.3 L Active Medications Generic Name Dose Route Start Last Admin Trade Name Freq PRN Reason Stop Dose Admin Acetaminophen 650 mg 05/25/18 12:01 Tylenol - PO Q6H PRN FEVER Albuterol/Ipratropium 1 amp 05/25/18 16:00 05/28/18 08:00 Duoneb - NEB 1 amp RQID KRISTY Administration Brimonidine Tartrate 1 drop 05/25/18 12:45 05/28/18 09:17 Alphagan 0.2% - OD 1 drop DAILY KRISTY Administration Heparin Sodium (Porcine) 5,000 unit 05/25/18 22:00 05/28/18 09:16 Heparin - SQ 5,000 unit BID KRISTY Administration Piperacillin Sod/Tazobactam 50 mls @ 100 mls/hr 05/25/18 14:00 05/28/18 09:17 Sod 2.25 gm/ Dextrose IVPB 100 mls/hr Q8H-IV KRISTY Administration Protocol Sodium Chloride 1,000 mls @ 75 mls/hr 05/27/18 12:00 05/28/18 05:36 Normal Saline - IV 75 mls/hr ASDIR KRISTY Administration Levetiracetam 500 mg 05/25/18 12:45 05/28/18 09:17 Keppra Oral Solution - PEG 500 mg BID KRISTY Administration Levothyroxine Sodium 50 mcg 05/25/18 12:45 10/31/18 05:35 Synthroid - PEG 50 mcg DAILY@0600 KRISTY Administration Pantoprazole Sodium 40 mg 05/25/18 12:45 05/28/18 09:17 Protonix Packets For Oral Suspension - PEG 40 mg DAILY KRISTY Administration Phenytoin Sodium 100 mg 05/26/18 22:00 05/28/18 09:18 Dilantin Oral Suspension - GT 100 mg BID KRISTY Administration Tamsulosin HCl 0.4 mg 05/25/18 12:30 05/28/18 09:17 Flomax - PO 0.4 mg DAILY@0830 KRISTY Administration Timolol Maleate 1 drop 05/25/18 12:15 05/28/18 09:17 Timoptic 0.5% OD 1 drop DAILY KRISTY Administration ASSESSMENT/PLAN: 87 year-old male with a PMH significant for HTN, CAD s/p CABG, CVA, CKD, AAA s/ p repair, seizure disorder, chronic respiratory failure, G-tube, dementia, and BPH. Admitted for severe sepsis secondary to pneumonia and MALINDA. Severe sepsis secondary to pneumonia --likely secondary to aspiration from G-tube --CXR with bilateral infiltrates --lactic acid 4.7 -> 1.6 --WBC 8.5 -> 10.6 -> 8.4 --Afebrile today (elevated temp yesterday 99.2) -- --Blood Culture: S. epidermis -New BC pending --Continue Zosyn --ID Dr. Perla godoy --Palliative care team consult ordered UTI -UA: 3+ Esterase, WBC 1280 -Preliminary Culture: Urine: group D strep or entero coccus -Urine less cloudy today -Patient on Zosyn Acute on chronic kidney disease Azotemia -Left hydronephrosis visualized on abdominal CT -Cr improving, 2.4 upon admission, 1.7 today (baseline 1.1) -14f Coudet catheter, inserted Saturday day, draining well -IV fluids Hypertension --hold antihypertensives due to sepsis Seizure disorder --Seen by neurologist Dr. Stokes --continue current dose of Keppra --Reduce dilantin to 100 mg TID to BID Chronic respiratory failure -Improved compared to admission, lung sounds clear -Duonebs QID -O2 @ 2LPM BPH --Continue tamsulosin Hypothyroidism --Continue levothyroxine Glaucoma --Continue Timolol and Alphagan gtts GI phrophylaxis --Protonix FEN Fluids: NS @ 42mL/hr Electrolytes: KCL 40 mg qday Nutrition: Re-start Jevity 1.5 @20 cc/hr, increase by 10 cc/hr q6 hrs for goal rate of 50 cc/hr DVT Prophylaxis --Heparin SQ Dispo: pt currently requires further inpatient care. DNR Visit type - Emergency Visit Emergency Visit: No - New Patient This patient is new to me today: No - Critical Care Critical Care patient: No
--- NOTE | 2018-05-28 23:51 | PN ---
Progress Note (short form) - Note Progress Note: 87 year old man known to me , He has history of seizure following subdural hemato evacuation. It was evacuated twice. Patient also have history of CKD, Stroke, cabg, ibs, peg tube placement. He appears to be in his baseline and no seizure since admission, He was brought to hospital for pneumonia , fever . There is no change in his mental status or seizure like activity. Mentation remain unchanged. NEUROLOGICAL EXAMINATION: He is remain comfortable, would open eye, non verbal and on asking how is he doing? he was trying to say but no clear words coming out. He seems to comprehend. There is no twitching or seizure activity was seen Left isde is moving more than right side pupils are small and left side there is eivdence of old surgery ? glaucoma Ct no ct head done this time Assessment : 87 year old male with multiple medical problem had subdural hematoma and has evacuation done by dr guerra twice. He is non verbal as baseline. Neurologically he is stable, unchanged . There is no seizure Plan: continue keppra same dose of 500 mg bid and dilantin was reduced to 100 mg po bid , observe for three days - continue to treat pneumonia as per primary team - would follow with primary Thanking you so much Ashwin Stokes MD
[2018-05-29] MEDS ORDERED: DEXTROSE 5%-WATER - 50 ML IVPB ONE ×3 (02:04→16:24)
[2018-05-29] MEDS ORDERED: PIPERACILLIN/TAZOBACTAM 2.25 GM VIAL IVPB ONE ×3 (02:04→16:23)
[2018-05-29] MEDS: PIPERACILLIN/TAZOB 2.25 GM 2.25 GM in DEXTROSE 5%-WATER - 50 ML IVPB SCH ×3 (02:16→17:02)
[2018-05-29] MEDS: LEVOTHYROXINE NA 50 MCG TABLET (FP) PEG SCH (05:25)
[2018-05-29] MEDS: ALBUTEROL SO4 2.5/IPRATROPIUM 0.5 INH SOL 3 ML VIAL.NEB. NEB SCH ×4 (08:16→20:46)
[2018-05-29] MEDS: TAMSULOSIN HCL 0.4 MG CAP PO SCH (08:19)
--- NOTE | 2018-05-29 08:40 | PN ---
Progress Note, Physician History of Present Illness: patient has coughing producing yellowish sputum lot of secretions still congested - Current Medication List Current Medications: Active Medications Acetaminophen (Tylenol -) 650 mg PO Q6H PRN PRN Reason: FEVER Albuterol/Ipratropium (Duoneb -) 1 amp NEB RQID [facility] Last Admin: 05/29/18 08:16 Dose: 1 amp Brimonidine Tartrate (Alphagan 0.2% -) 1 drop OD DAILY [facility] Last Admin: 05/28/18 09:17 Dose: 1 drop Heparin Sodium (Porcine) (Heparin -) 5,000 unit SQ BID [facility] Last Admin: 05/28/18 21:44 Dose: 5,000 unit Piperacillin Sod/Tazobactam (Sod 2.25 gm/ Dextrose) 50 mls @ 100 mls/hr IVPB Q8H-IV [facility]; Protocol Last Admin: 05/29/18 02:16 Dose: 100 mls/hr Sodium Chloride (Normal Saline -) 1,000 mls @ 42 mls/hr IV ASDIR [facility] Last Admin: 05/28/18 18:27 Dose: Not Given Levetiracetam (Keppra Oral Solution -) 500 mg PEG BID [facility] Last Admin: 05/28/18 21:20 Dose: 500 mg Levothyroxine Sodium (Synthroid -) 50 mcg PEG DAILY@0600 [facility] Last Admin: 05/29/18 05:25 Dose: 50 mcg Pantoprazole Sodium (Protonix Packets For Oral Suspension -) 40 mg PEG DAILY [facility] Last Admin: 05/28/18 09:17 Dose: 40 mg Phenytoin Sodium (Dilantin Oral Suspension -) 100 mg GT BID [facility] Last Admin: 05/28/18 21:19 Dose: 100 mg Tamsulosin HCl (Flomax -) 0.4 mg PO DAILY@0830 [facility] Last Admin: 05/29/18 08:19 Dose: 0.4 mg Timolol Maleate (Timoptic 0.5%) 1 drop OD DAILY [facility] Last Admin: 05/28/18 09:17 Dose: 1 drop - Objective Vital Signs: Vital Signs Temperature 98.1 F 05/29/18 06:00 Pulse Rate 90 05/29/18 06:00 Respiratory Rate 20 05/29/18 06:00 Blood Pressure 161/78 05/29/18 06:00 O2 Sat by Pulse Oximetry (%) 96 05/28/18 21:00 Constitutional: Yes: No Distress, Calm, Thin Cardiovascular: Yes: Regular Rate and Rhythm Respiratory: Yes: Regular, Rhonchi, Other (secretions) Gastrointestinal: Yes: Normal Bowel Sounds, Soft Musculoskeletal: Yes: WNL Extremities: Yes: WNL Neurological: Yes: Alert, Other Psychiatric: Yes: Other Labs: CBC, BMP 05/28/18 05:30 05/28/18 05:30 INR, PTT INR 1.27 (0.83-1.09) H 05/25/18 05:25 Assessment/Plan Problem List - Problems (1) Sepsis Code(s): A41.9 - SEPSIS, UNSPECIFIED ORGANISM (2) MALINDA (acute kidney injury) Code(s): N17.9 - ACUTE KIDNEY FAILURE, UNSPECIFIED (3) Aneurysm of infrarenal abdominal aorta Code(s): I71.4 - ABDOMINAL AORTIC ANEURYSM, WITHOUT RUPTURE (4) CAD (coronary artery disease) Code(s): I25.10 - ATHSCL HEART DISEASE OF [place] CORONARY ARTERY W/O ANG PCTRS Qualifiers: [place] vs. transplanted heart: [place] heart Associated angina: without angina (5) Cerebrovascular accident (CVA) Code(s): I63.9 - CEREBRAL INFARCTION, UNSPECIFIED (6) HTN (hypertension) Code(s): I10 - ESSENTIAL (PRIMARY) HYPERTENSION Qualifiers: Hypertension type: essential hypertension Qualified Code(s): I10 - Essential (primary) hypertension (7) History of endovascular stent graft for abdominal aortic aneurysm (AAA) Code(s): Z95.828 - PRESENCE OF OTHER VASCULAR IMPLANTS AND GRAFTS (8) Hyperlipidemia Code(s): E78.5 - HYPERLIPIDEMIA, UNSPECIFIED Qualifiers: Hyperlipidemia type: pure hypercholesterolemia Qualified Code(s): E78.00 - Pure hypercholesterolemia, unspecified; E78.0 - Pure hypercholesterolemia (9) Pneumonia Code(s): J18.9 - PNEUMONIA, UNSPECIFIED ORGANISM Qualifiers: Pneumonia type: aspiration pneumonia (10) Respiratory failure Code(s): J96.90 - RESPIRATORY FAILURE, UNSP, UNSP W HYPOXIA OR HYPERCAPNIA (11) S/P CABG (coronary artery bypass graft) Code(s): Z95.1 - PRESENCE OF AORTOCORONARY BYPASS GRAFT (12) Functional quadriplegia Code(s): R53.2 - FUNCTIONAL QUADRIPLEGIA 13 gm positive bacteria 14 uti Assessment/Plan 87 y.o. male with PMH of CVA, dysphagia s/p peg placement, CAD s/p CABG, AAA s/ p repair, seizure d.o. , HTN, and hypothyroidism presenting for vomiting of peg feeds Sepsis PNA - likely aspiration Respiratory distress MALINDA Lt hydronephrosis Fever CAD s/p CABG AAA repair CVA with dysphagia patient still with lung symptoms,aspiration risk lot of secretions plan continue suctioning continue abx rest as per the team will d/w the team chest physio
[2018-05-29] MEDS ORDERED: PT OWN MED DRAWER 7, Y5N ONE (08:59)
[2018-05-29] MEDS: BRIMONIDINE TARTRATE 0.2% OPHTHALMIC 5 ML BOTTLE OD SCH (09:23)
[2018-05-29] MEDS: PHENYTOIN 100 MG/4 ML U-D CUP GT SCH ×2 (09:23→21:11)
[2018-05-29] MEDS: levETIRAcetam 500 MG/5 ML ORAL SOLUTION (UNIT-DOSE CUPS) PEG SCH ×2 (09:24→21:11)
[2018-05-29] MEDS: TIMOLOL 0.5% OPHTHALMIC SOL 5 ML BOTTLE OD SCH (09:24)
[2018-05-29] MEDS: HEPARIN NA (PORCINE) 5,000 UNITS/ML 1ML VIAL SQ SCH ×2 (09:24→21:17)
[2018-05-29] MEDS: PANTOPRAZOLE SOD 40 MG SUSPENSION PACKET PEG SCH (09:24)
[2018-05-29] MEDS ORDERED: SODIUM CHLORIDE 1,000 ML IV SCH (11:15)
--- NOTE | 2018-05-29 11:15 | PN ---
Physical Exam: SUBJECTIVE: Patient seen and examined OBJECTIVE: Vital Signs Period Temp Pulse Resp BP Sys/Michel Pulse Ox Last 24 Hr 97.7 F-98.9 F 83-90 18-35 138-161/73-82 96-98 GENERAL: Asleep, frail, thin, non-verbal, in no acute distress. HEAD: Normal with no signs of trauma. EYES: Irregularly shaped left pupil, extraocular movements intact, sclera anicteric, conjunctiva clear. No ptosis. ENT: +NC, nares patent, oropharynx clear without exudates, dry mucus membranes. NECK: Trachea midline, full range of motion, supple. LUNGS: Ronchi b/l, somewhat labored respiratory effort. HEART: Rapid rate and regular rhythm, S1, S2 without murmur, rub or gallop. ABDOMEN: +PEG in mid upper abdomen, no erythema to surrounding tissue, soft, nontender, nondistended, normoactive bowel sounds, no guarding, no rebound, no hepatosplenomegaly, no masses. : +Coudet catheter draining cloudy yellow urine EXTREMITIES: 2+ pulses, warm, well-perfused, no edema. NEUROLOGICAL: Aphasia PSYCH: Normal mood, normal affect. SKIN: Warm, dry, normal turgor, no rashes or lesions noted Active Medications Generic Name Dose Route Start Last Admin Trade Name Freq PRN Reason Stop Dose Admin Acetaminophen 650 mg 05/25/18 12:01 Tylenol - PO Q6H PRN FEVER Albuterol/Ipratropium 1 amp 05/25/18 16:00 05/29/18 08:16 Duoneb - NEB 1 amp RQID KRISTY Administration Brimonidine Tartrate 1 drop 05/25/18 12:45 05/29/18 09:23 Alphagan 0.2% - OD 1 drop DAILY KRISTY Administration Heparin Sodium (Porcine) 5,000 unit 05/25/18 22:00 05/29/18 09:24 Heparin - SQ 5,000 unit BID KRISTY Administration Piperacillin Sod/Tazobactam 50 mls @ 100 mls/hr 05/25/18 14:00 05/29/18 09:22 Sod 2.25 gm/ Dextrose IVPB 100 mls/hr Q8H-IV KRISTY Administration Protocol Sodium Chloride 1,000 mls @ 42 mls/hr 05/28/18 10:58 05/28/18 18:27 Normal Saline - IV Not Given ASDIR KRISTY Sodium Chloride 1,000 mls @ 75 mls/hr 05/29/18 11:15 Normal Saline - IV ASDIR KRISTY Levetiracetam 500 mg 05/25/18 12:45 05/29/18 09:24 Keppra Oral Solution - PEG 500 mg BID KRISTY Administration Levothyroxine Sodium 50 mcg 05/25/18 12:45 05/29/18 05:25 Synthroid - PEG 50 mcg DAILY@0600 KRISTY Administration Pantoprazole Sodium 40 mg 05/25/18 12:45 05/29/18 09:24 Protonix Packets For Oral Suspension - PEG 40 mg DAILY KRISTY Administration Phenytoin Sodium 100 mg 05/26/18 22:00 05/29/18 09:23 Dilantin Oral Suspension - GT 100 mg BID KRISTY Administration Tamsulosin HCl 0.4 mg 05/25/18 12:30 05/29/18 08:19 Flomax - PO 0.4 mg DAILY@0830 KRISTY Administration Timolol Maleate 1 drop 05/25/18 12:15 05/29/18 09:24 Timoptic 0.5% OD 1 drop DAILY KRISTY Administration ASSESSMENT/PLAN: 87 year-old male with a PMH significant for HTN, CAD s/p CABG, CVA, CKD, AAA s/ p repair, seizure disorder, chronic respiratory failure, G-tube, dementia, and BPH. Admitted for severe sepsis secondary to pneumonia and MALINDA. Severe sepsis secondary to pneumonia --More congested today, re-started tube feed yesterday, will stop feed for now. --CXR with bilateral infiltrates --lactic acid 4.7 -> 1.6 --WBC 8.5 -> 10.6 -> 8.4 -> 7.1 --Afebrile --Blood Culture: S. epidermis -No growth on repeat preliminary BC --Continue Zosyn -HOB at 45 degrees -repeat CXR ordered -ID Dr. Duncan following -Palliative care team consult ordered UTI -UA: 3+ Esterase, WBC 1280 -Culture: Urine: E. faecalis -Patient on Zosyn Acute on chronic kidney disease Azotemia -Left hydronephrosis visualized on abdominal CT -Cr improving, 2.4 upon admission, now 1.7 (baseline 1.1) -14f Coudet catheter, inserted Saturday, draining well -IV fluids Hypertension --hold antihypertensives due to sepsis Seizure disorder --Seen by neurologist Dr. Stokes --continue current dose of Keppra --Dilantin 100 mg BID Chronic respiratory failure -More -Duonebs QID -O2 @ 2LPM BPH --Continue tamsulosin Hypothyroidism --Continue Levothyroxine Glaucoma --Continue Timolol and Alphagan gtts GI phrophylaxis --Protonix FEN Fluids: NS @ 50mL/hr Electrolytes: KCL 40 mg qday Nutrition: Stopped Jeveity for now. DVT Prophylaxis --Heparin SQ Dispo: pt currently requires further inpatient care. DNR Visit type - Emergency Visit Emergency Visit: No - New Patient This patient is new to me today: No - Critical Care Critical Care patient: No
[2018-05-29] MEDS: SODIUM CHLORIDE 1,000 ML IV SCH ×2 (13:31→15:56)
[2018-05-29] MEDS: amLODIPine BESYLATE 5 MG TABLET (FP) PEG SCH (16:00)
--- NOTE | 2018-05-29 17:30 | PN ---
Progress Note (short form) - Note Progress Note: 87 year old man known to me , He has history of seizure following subdural hemato evacuation. It was evacuated twice. Patient also have history of CKD, Stroke, cabg, ibs, peg tube placement. He appears to be in his baseline and no seizure since admission, He was brought to hospital for pneumonia , fever . There is no change in his mental status or seizure like activity. Mentation remain unchanged. after dilantin being reduced , there has not been much change in his mental status NEUROLOGICAL EXAMINATION: He is remain comfortable, would open eye, non verbal and on asking how is he doing? He is coughing and seems his chest is congested. There is no twitching or seizure activity was seen Left isde is moving more than right side pupils are small and left side there is eivdence of old surgery ? glaucoma Ct no ct head done this time Assessment : 87 year old male with multiple medical problem had subdural hematoma and has evacuation done by dr guerra twice. He is non verbal as baseline. Neurologically he is stable, unchanged . There is no seizure . There has not been much improvement in his mental status after reducing dilantin Plan: continue keppra same dose of 500 mg bid and dilantin was reduced to 100 mg po bid , observe for three days - continue to treat pneumonia as per primary team - would follow with primary Thanking you so much Ashwin Stokes MD
[2018-05-29] MEDS: METOPROLOL TARTRATE 50 MG TABLET (FP) PEG SCH (21:11)
[2018-05-30] MEDS ORDERED: PIPERACILLIN/TAZOBACTAM 2.25 GM VIAL IVPB ONE ×3 (00:22→17:17)
[2018-05-30] MEDS ORDERED: DEXTROSE 5%-WATER - 50 ML IVPB ONE ×3 (00:23→17:18)
[2018-05-30] MEDS: PIPERACILLIN/TAZOB 2.25 GM 2.25 GM in DEXTROSE 5%-WATER - 50 ML IVPB SCH ×3 (01:25→18:05)
[2018-05-30] MEDS: SODIUM CHLORIDE 1,000 ML IV SCH ×2 (01:51→21:32)
[2018-05-30] MEDS: LEVOTHYROXINE NA 50 MCG TABLET (FP) PEG SCH (05:59)
[2018-05-30] MEDS: ALBUTEROL SO4 2.5/IPRATROPIUM 0.5 INH SOL 3 ML VIAL.NEB. NEB SCH ×2 (07:35→11:24)
[2018-05-30 08:37] LABS: ANION GAP 10 MMOL/L (8-16); BLOOD UREA NITROGEN 24 mg/dL (7-18); CALCIUM 8.2 mg/dL (8.5-10.1); CHLORIDE 112 mmol/L (98-107); CO2 27 mmol/L (21-32); CREATININE 1.4 mg/dL (0.55-1.3); GLUCOSE,RANDOM 84 mg/dL (74-106); SODIUM 148 mmol/L (136-145)
[2018-05-30 08:54] LABS: POTASSIUM 2.8 mmol/L (3.5-5.1)
[2018-05-30] MEDS ORDERED: PT OWN MED DRAWER 7, Y5N ONE (09:15)
--- NOTE | 2018-05-30 09:29 | PN ---
Progress Note (short form) - Note Progress Note: 87 year old man known to me , He has history of seizure following subdural hemato evacuation. It was evacuated twice. Patient also have history of CKD, Stroke, cabg, ibs, peg tube placement. He appears to be worse today morning, he spiked fever and his mental status is worse , no seizure NEUROLOGICAL EXAMINATION: He is breathing heavy, and he has been npo, and opens his eye but not responding to verbal command. There is no twitching or seizure activity was seen Left isde is moving more than right side pupils are small and left side there is eivdence of old surgery ? glaucoma Ct no ct head done this time Would repeat ct on saturday at request of her girlfriend Assessment : 87 year old male with multiple medical problem had subdural hematoma and has evacuation done by dr guerra twice. He is non verbal as baseline. He seems to be worse as he spiked fever today. Plan: continue keppra same dose of 500 mg bid and dilantin was reduced to 100 mg po bid , o - Spoke to his girl friend, Brandy. I would repeat ct head on saturday, at request of his girl friend and further consider reducing dilantin - would follow with primary Thanking you so much Ashwin Stokes MD
[2018-05-30] MEDS: amLODIPine BESYLATE 5 MG TABLET (FP) PEG SCH (09:43)
[2018-05-30] MEDS: TAMSULOSIN HCL 0.4 MG CAP PO SCH (09:43)
[2018-05-30] MEDS: PANTOPRAZOLE SOD 40 MG SUSPENSION PACKET PEG SCH (09:43)
[2018-05-30] MEDS: ACETAMINOPHEN 325 MG TABLET (FP) PO PRN (09:43)
[2018-05-30] MEDS: METOPROLOL TARTRATE 50 MG TABLET (FP) PEG SCH ×2 (09:43→21:31)
[2018-05-30] MEDS: TIMOLOL 0.5% OPHTHALMIC SOL 5 ML BOTTLE OD SCH (09:44)
[2018-05-30] MEDS: levETIRAcetam 500 MG/5 ML ORAL SOLUTION (UNIT-DOSE CUPS) PEG SCH ×2 (09:44→21:31)
[2018-05-30] MEDS: BRIMONIDINE TARTRATE 0.2% OPHTHALMIC 5 ML BOTTLE OD SCH (09:44)
[2018-05-30] MEDS: PHENYTOIN 100 MG/4 ML U-D CUP GT SCH ×2 (09:44→21:31)
[2018-05-30] MEDS: HEPARIN NA (PORCINE) 5,000 UNITS/ML 1ML VIAL SQ SCH ×2 (09:45→21:31)
[2018-05-30 09:55] LABS: BASO % 0.5 % (0-2.0); EOS % 14.4 % (0-4.5); HEMATOCRIT 25.2 % (35.4-49); HEMOGLOBIN 8.4 GM/dL (11.7-16.9); LYMPH % 17.7 % (8-40); MCH 29.9 pg (25.7-33.7); MCHC 33.5 g/dl (32.0-35.9); MEAN CELL VOLUME 89.4 fl (80-96); MEAN PLT VOLUME 7.3 fl (7.5-11.1); MONO % 9.3 % (3.8-10.2); NEUT % 58.1 % (42.8-82.8); PLATELET COUNT 313 K/MM3 (134-434); RBC 2.82 M/mm3 (4.00-5.60); RDW 14.5 % (11.9-15.9); WHITE BLOOD COUNT 7.2 K/mm3 (4.0-10.0)
[2018-05-30] MEDS ORDERED: methylPREDNISolone NA SUCC 40 MG/1 ML VIAL IVPB ONE (10:06)
--- NOTE | 2018-05-30 11:04 | PN ---
Progress Note, Physician History of Present Illness: patient sounds much better comfortable awake alert dementia had low grade temp - Current Medication List Current Medications: Active Medications Acetaminophen (Tylenol -) 650 mg PO Q6H PRN PRN Reason: FEVER Last Admin: 05/30/18 09:43 Dose: 650 mg Albuterol/Ipratropium (Duoneb -) 1 amp NEB RQID [facility] Last Admin: 05/30/18 07:35 Dose: 1 amp Amlodipine Besylate (Norvasc -) 10 mg PEG DAILY [facility] Last Admin: 05/30/18 09:43 Dose: 10 mg Brimonidine Tartrate (Alphagan 0.2% -) 1 drop OD DAILY [facility] Last Admin: 05/30/18 09:44 Dose: 1 drop Heparin Sodium (Porcine) (Heparin -) 5,000 unit SQ BID [facility] Last Admin: 05/30/18 09:45 Dose: 5,000 unit Piperacillin Sod/Tazobactam (Sod 2.25 gm/ Dextrose) 50 mls @ 100 mls/hr IVPB Q8H-IV [facility]; Protocol Last Admin: 05/30/18 09:43 Dose: 100 mls/hr Sodium Chloride (Normal Saline -) 1,000 mls @ 50 mls/hr IV ASDIR [facility] Last Admin: 05/30/18 01:51 Dose: 50 mls/hr Potassium Chloride (Potassium Chloride 10 Meq Premix Ivpb -) 10 meq in 100 mls @ 100 mls/hr IVPB Q60M [facility] Stop: 05/30/18 12:59 Levetiracetam (Keppra Oral Solution -) 500 mg PEG BID [facility] Last Admin: 05/30/18 09:44 Dose: 500 mg Levothyroxine Sodium (Synthroid -) 50 mcg PEG DAILY@0600 [facility] Last Admin: 05/30/18 05:59 Dose: 50 mcg Metoprolol Tartrate (Lopressor -) 50 mg PEG BID [facility] Last Admin: 05/30/18 09:43 Dose: 50 mg Pantoprazole Sodium (Protonix Packets For Oral Suspension -) 40 mg PEG DAILY [facility] Last Admin: 05/30/18 09:43 Dose: 40 mg Phenytoin Sodium (Dilantin Oral Suspension -) 100 mg GT BID [facility] Last Admin: 05/30/18 09:44 Dose: 100 mg Tamsulosin HCl (Flomax -) 0.4 mg PO DAILY@0830 [facility] Last Admin: 05/30/18 09:43 Dose: 0.4 mg Timolol Maleate (Timoptic 0.5%) 1 drop OD DAILY [facility] Last Admin: 05/30/18 09:44 Dose: 1 drop - Objective Vital Signs: Vital Signs Temperature 98.8 F 05/30/18 06:00 Pulse Rate 80 05/30/18 06:00 Respiratory Rate 20 05/30/18 06:00 Blood Pressure 145/80 05/30/18 06:00 O2 Sat by Pulse Oximetry (%) 97 05/29/18 21:00 Constitutional: Yes: No Distress, Calm Cardiovascular: Yes: Regular Rate and Rhythm Respiratory: Yes: Regular, CTA Bilaterally Gastrointestinal: Yes: Normal Bowel Sounds, Soft Genitourinary: Yes: Penny Present Musculoskeletal: Yes: WNL Extremities: Yes: WNL Neurological: Yes: Alert, Other Psychiatric: Yes: Alert Labs: CBC, BMP 05/30/18 06:30 05/30/18 06:30 INR, PTT INR 1.27 (0.83-1.09) H 05/25/18 05:25 Assessment/Plan Problem List - Problems (1) Sepsis Code(s): A41.9 - SEPSIS, UNSPECIFIED ORGANISM (2) MALINDA (acute kidney injury) Code(s): N17.9 - ACUTE KIDNEY FAILURE, UNSPECIFIED (3) Aneurysm of infrarenal abdominal aorta Code(s): I71.4 - ABDOMINAL AORTIC ANEURYSM, WITHOUT RUPTURE (4) CAD (coronary artery disease) Code(s): I25.10 - ATHSCL HEART DISEASE OF [place] CORONARY ARTERY W/O ANG PCTRS Qualifiers: [place] vs. transplanted heart: [place] heart Associated angina: without angina (5) Cerebrovascular accident (CVA) Code(s): I63.9 - CEREBRAL INFARCTION, UNSPECIFIED (6) HTN (hypertension) Code(s): I10 - ESSENTIAL (PRIMARY) HYPERTENSION Qualifiers: Hypertension type: essential hypertension Qualified Code(s): I10 - Essential (primary) hypertension (7) History of endovascular stent graft for abdominal aortic aneurysm (AAA) Code(s): Z95.828 - PRESENCE OF OTHER VASCULAR IMPLANTS AND GRAFTS (8) Hyperlipidemia Code(s): E78.5 - HYPERLIPIDEMIA, UNSPECIFIED Qualifiers: Hyperlipidemia type: pure hypercholesterolemia Qualified Code(s): E78.00 - Pure hypercholesterolemia, unspecified; E78.0 - Pure hypercholesterolemia (9) Pneumonia Code(s): J18.9 - PNEUMONIA, UNSPECIFIED ORGANISM Qualifiers: Pneumonia type: aspiration pneumonia (10) Respiratory failure Code(s): J96.90 - RESPIRATORY FAILURE, UNSP, UNSP W HYPOXIA OR HYPERCAPNIA (11) S/P CABG (coronary artery bypass graft) Code(s): Z95.1 - PRESENCE OF AORTOCORONARY BYPASS GRAFT (12) Functional quadriplegia Code(s): R53.2 - FUNCTIONAL QUADRIPLEGIA 13 gm positive bacteria 14 uti Assessment/Plan 87 y.o. male with PMH of CVA, dysphagia s/p peg placement, CAD s/p CABG, AAA s/ p repair, seizure d.o. , HTN, and hypothyroidism presenting for vomiting of peg feeds Sepsis PNA - likely aspiration Respiratory distress MALINDA Lt hydronephrosis Fever CAD s/p CABG AAA repair CVA with dysphagia patient still with lung symptoms,aspiration risk lot of secretions plan continue suctioning continue abx plan about nutrition to be mad once we have that will deescalte the abx
[2018-05-30] MEDS: KCL 10 MEQ IVPB 10 MEQ/100 ML INFUS.BAG IVPB SCH ×3 (11:30→16:26)
--- NOTE | 2018-05-30 12:59 | PN ---
Teaching Attending Note Name of Resident: Jarrod Lopez ATTENDING PHYSICIAN STATEMENT I saw and evaluated the patient. I reviewed the resident's note and discussed the case with the resident. I agree with the resident's findings and plan as documented. PULMONARY IMP RESPIRATORY DISTRESS BILATERAL PNEUMONIA LIKELY ASPIRATION H/O SUBDURAL HEMATOMA DEMENTIA ACUTE ON CHRONIC KIDNEY INJURY PLAN IV ABX INHALED BRONCHODILATORS O2 F/U CHEST -RAYS ORAL-PHARYNGEAL SUCTIONING CULTURES MONITOR LYTES,CBC,RENAL FUNCTION IVF REPLETE K DR GONSALES Problem List - Problems (1) CAD (coronary artery disease) Code(s): I25.10 - ATHSCL HEART DISEASE OF [place] CORONARY ARTERY W/O ANG PCTRS Qualifiers: [place] vs. transplanted heart: [place] heart Associated angina: without angina (2) Cerebrovascular accident (CVA) Code(s): I63.9 - CEREBRAL INFARCTION, UNSPECIFIED (3) Electrolyte abnormality Code(s): E87.8 - OTH DISORDERS OF ELECTROLYTE AND FLUID BALANCE, NEC (4) HTN (hypertension) Code(s): I10 - ESSENTIAL (PRIMARY) HYPERTENSION Qualifiers: Hypertension type: essential hypertension Qualified Code(s): I10 - Essential (primary) hypertension (5) History of craniotomy Code(s): Z98.890 - OTHER SPECIFIED POSTPROCEDURAL STATES (6) History of endovascular stent graft for abdominal aortic aneurysm (AAA) Code(s): Z95.828 - PRESENCE OF OTHER VASCULAR IMPLANTS AND GRAFTS (7) Hypokalemia Code(s): E87.6 - HYPOKALEMIA (8) Pneumonia Code(s): J18.9 - PNEUMONIA, UNSPECIFIED ORGANISM Qualifiers: Pneumonia type: aspiration pneumonia (9) S/P CABG (coronary artery bypass graft) Code(s): Z95.1 - PRESENCE OF AORTOCORONARY BYPASS GRAFT (10) Subdural hemorrhage Code(s): I62.00 - NONTRAUMATIC SUBDURAL HEMORRHAGE, UNSPECIFIED (11) MALINDA (acute kidney injury) Code(s): N17.9 - ACUTE KIDNEY FAILURE, UNSPECIFIED
--- NOTE | 2018-05-30 14:23 | CONSULT ---
Consultation: REQUESTING PROVIDER: THERESA Acosta CONSULT REQUEST: We have been asked to medically evaluate this patient for pulmonology evaluation. HISTORY OF PRESENT ILLNESS: 87 yo male with PMH of HTN, HLD, CAD s/p CABG, CVA, CKD, Seizures, Subdural Hematoma s/p craniotomy, Dimentia, nonverbal, admitted from care home after vomiting his G-tube feed. He does not take any food by mouth and solely uses the G-tube for feeds. He also has a cough and some pulmonary congestion. We were asked to evaluate as his pneumonia has not been improving over the last few days on Zosyn. REVIEW OF SYSTEMS: Unable to obtain PHYSICAL EXAMINATION Vital Signs - 24 hr 05/29/18 05/29/18 05/29/18 15:39 16:30 21:00 Temperature 99.2 F 99.2 F Pulse Rate 86 87 Respiratory 18 18 18 Rate Blood Pressure 153/83 158/80 O2 Sat by Pulse 97 Oximetry (%) 05/29/18 05/30/18 05/30/18 22:00 06:00 10:00 Temperature 98.8 F 98.8 F 100.8 F H Pulse Rate 90 80 80 Respiratory 20 20 18 Rate Blood Pressure 151/77 145/80 163/84 O2 Sat by Pulse Oximetry (%) GENERAL: nonverbal, responsive to pain, no acute distress HEAD: Normocephalic, atraumatic. EYES: PERRL, no scleral icterus EARS, NOSE, THROAT: oropharynx clear without exudates. Dry mucous membranes. NECK: supple without lymphadenopathy LUNGS: Diffuse rhonchi noted HEART: Regular rate and rhythm, normal S1 and S2 without murmur ABDOMEN: Soft, nontender to palpation, normoactive bowel sounds EXTREMITIES: 2+ pulses, warm, well-perfused. No peripheral edema. Laboratory Results - last 24 hr 05/30/18 05/30/18 06:30 06:30 WBC 7.2 RBC 2.82 L Hgb 8.4 L Hct 25.2 L MCV 89.4 MCH 29.9 MCHC 33.5 RDW 14.5 Plt Count 313 MPV 7.3 L Absolute Neuts (auto) 4.2 Neutrophils % 58.1 D Lymphocytes % 17.7 D Monocytes % 9.3 Eosinophils % 14.4 H D Basophils % 0.5 Nucleated RBC % 0 Sodium 148 H Potassium 2.8 L* Chloride 112 H Carbon Dioxide 27 Anion Gap 10 BUN 24 H Creatinine 1.4 H Creat Clearance w eGFR 47.94 Random Glucose 84 Calcium 8.2 L Active Medications Generic Name Dose Route Start Last Admin Trade Name Freq PRN Reason Stop Dose Admin Acetaminophen 650 mg 05/25/18 12:01 05/30/18 09:43 Tylenol - PO 650 mg Q6H PRN Administration FEVER Albuterol/Ipratropium 1 amp 05/25/18 16:00 05/30/18 11:24 Duoneb - NEB 1 amp RQID KRISTY Administration Amlodipine Besylate 10 mg 05/29/18 15:45 05/30/18 09:43 Norvasc - PEG 10 mg DAILY KRISTY Administration Brimonidine Tartrate 1 drop 05/25/18 12:45 05/30/18 09:44 Alphagan 0.2% - OD 1 drop DAILY KRISTY Administration Heparin Sodium (Porcine) 5,000 unit 05/25/18 22:00 05/30/18 09:45 Heparin - SQ 5,000 unit BID KRISTY Administration Piperacillin Sod/Tazobactam 50 mls @ 100 mls/hr 05/25/18 14:00 05/30/18 09:43 Sod 2.25 gm/ Dextrose IVPB 100 mls/hr Q8H-IV KRISTY Administration Protocol Sodium Chloride 1,000 mls @ 50 mls/hr 05/29/18 15:42 05/30/18 01:51 Normal Saline - IV 50 mls/hr ASDIR KRISTY Administration Levetiracetam 500 mg 05/25/18 12:45 05/30/18 09:44 Keppra Oral Solution - PEG 500 mg BID KRISTY Administration Levothyroxine Sodium 50 mcg 05/25/18 12:45 05/30/18 05:59 Synthroid - PEG 50 mcg DAILY@0600 KRISTY Administration Metoprolol Tartrate 50 mg 05/29/18 22:00 05/30/18 09:43 Lopressor - PEG 50 mg BID KRISTY Administration Pantoprazole Sodium 40 mg 05/25/18 12:45 05/30/18 09:43 Protonix Packets For Oral Suspension - PEG 40 mg DAILY KRISTY Administration Phenytoin Sodium 100 mg 05/26/18 22:00 05/30/18 09:44 Dilantin Oral Suspension - GT 100 mg BID KRISTY Administration Tamsulosin HCl 0.4 mg 10/28/18 12:30 05/30/18 09:43 Flomax - PO 0.4 mg DAILY@0830 KRISTY Administration Timolol Maleate 1 drop 05/25/18 12:15 05/30/18 09:44 Timoptic 0.5% OD 1 drop DAILY KRISTY Administration ASSESSMENT/PLAN: 87 yo male with PMH of HTN, HLD, CAD s/p CABG, CVA, CKD, Seizures, Subdural Hematoma s/p craniotomy, Dimentia, nonverbal, admitted from care home after vomiting his G-tube feed. Healthcare associated Pneumonia -Likely aspiration pneumonia with history of vomiting G-tube feeds -ID Consult noted -Continue Zosyn -Hold feeds until improving and can tolerate -Aspiration precautions, elevate head of bed -Frequent suctioning -Continue DuoNebs QID UTI -UA noted with 3+ LE and 1280 WBCs -Being treated on Zosyn as above Seizures -Neurology consult noted -Continue current management DVT Prophylaxis -Heparin 5000 units SQ BID FEN -Fluids: NS @ 50 cc/hr -Electrolytes: No electrolyte abnormalities, BMP in AM -Nutrition: None Dispo: We will continue to follow the patient. Thank you for this consultative opportunity. Visit type - Emergency Visit Emergency Visit: Yes ED Registration Date: 05/25/18 Care time: The patient presented to the Emergency Department on the above date and was hospitalized for further evaluation of their emergent condition. - New Patient This patient is new to me today: Yes Date on this admission: 05/30/18 - Critical Care Critical Care patient: No
--- NOTE | 2018-05-30 15:59 | PN ---
Physical Exam: SUBJECTIVE: Patient seen and examined OBJECTIVE: Vital Signs Period Temp Pulse Resp BP Sys/Michel Pulse Ox Last 24 Hr 97.8 F-100.8 F 74-90 18-20 140-163/77-84 97 GENERAL: Asleep, frail, thin, non-verbal, in no acute distress. HEAD: Normal with no signs of trauma. EYES: Irregularly shaped left pupil, extraocular movements intact, sclera anicteric, conjunctiva clear. No ptosis. ENT: +NC, nares patent, oropharynx clear without exudates, dry mucus membranes. NECK: Trachea midline, full range of motion, supple. LUNGS: Ronchi b/l, somewhat labored respiratory effort. HEART: Rapid rate and regular rhythm, S1, S2 without murmur, rub or gallop. ABDOMEN: +PEG in mid upper abdomen, no erythema to surrounding tissue, soft, nontender, nondistended, normoactive bowel sounds, no guarding, no rebound, no hepatosplenomegaly, no masses. : +Coudet catheter draining cloudy yellow urine EXTREMITIES: 2+ pulses, warm, well-perfused, no edema. NEUROLOGICAL: Aphasia PSYCH: Normal mood, normal affect. SKIN: Warm, dry, normal turgor, no rashes or lesions noted Laboratory Results - last 24 hr 05/30/18 05/30/18 06:30 06:30 WBC 7.2 RBC 2.82 L Hgb 8.4 L Hct 25.2 L MCV 89.4 MCH 29.9 MCHC 33.5 RDW 14.5 Plt Count 313 MPV 7.3 L Absolute Neuts (auto) 4.2 Neutrophils % 58.1 D Lymphocytes % 17.7 D Monocytes % 9.3 Eosinophils % 14.4 H D Basophils % 0.5 Nucleated RBC % 0 Sodium 148 H Potassium 2.8 L* Chloride 112 H Carbon Dioxide 27 Anion Gap 10 BUN 24 H Creatinine 1.4 H Creat Clearance w eGFR 47.94 Random Glucose 84 Calcium 8.2 L Active Medications Generic Name Dose Route Start Last Admin Trade Name Freq PRN Reason Stop Dose Admin Acetaminophen 650 mg 05/25/18 12:01 05/30/18 09:43 Tylenol - PO 650 mg Q6H PRN Administration FEVER Albuterol/Ipratropium 1 amp 05/25/18 16:00 05/30/18 11:24 Duoneb - NEB 1 amp RQID KRISTY Administration Amlodipine Besylate 10 mg 05/29/18 15:45 05/30/18 09:43 Norvasc - PEG 10 mg DAILY KRISTY Administration Brimonidine Tartrate 1 drop 05/25/18 12:45 05/30/18 09:44 Alphagan 0.2% - OD 1 drop DAILY KRISTY Administration Heparin Sodium (Porcine) 5,000 unit 05/25/18 22:00 05/30/18 09:45 Heparin - SQ 5,000 unit BID KRISTY Administration Piperacillin Sod/Tazobactam 50 mls @ 100 mls/hr 05/25/18 14:00 05/30/18 09:43 Sod 2.25 gm/ Dextrose IVPB 100 mls/hr Q8H-IV KRISTY Administration Protocol Sodium Chloride 1,000 mls @ 50 mls/hr 05/29/18 15:42 05/30/18 01:51 Normal Saline - IV 50 mls/hr ASDIR KRISTY Administration Levetiracetam 500 mg 05/25/18 12:45 05/30/18 09:44 Keppra Oral Solution - PEG 500 mg BID KRISTY Administration Levothyroxine Sodium 50 mcg 05/25/18 12:45 05/30/18 05:59 Synthroid - PEG 50 mcg DAILY@0600 KRISTY Administration Metoprolol Tartrate 50 mg 05/29/18 22:00 05/30/18 09:43 Lopressor - PEG 50 mg BID KRISTY Administration Pantoprazole Sodium 40 mg 05/25/18 12:45 05/30/18 09:43 Protonix Packets For Oral Suspension - PEG 40 mg DAILY KRISTY Administration Phenytoin Sodium 100 mg 05/26/18 22:00 05/30/18 09:44 Dilantin Oral Suspension - GT 100 mg BID KRISTY Administration Tamsulosin HCl 0.4 mg 05/25/18 12:30 05/30/18 09:43 Flomax - PO 0.4 mg DAILY@0830 KRISTY Administration Timolol Maleate 1 drop 05/25/18 12:15 05/30/18 09:44 Timoptic 0.5% OD 1 drop DAILY KRISTY Administration ASSESSMENT/PLAN: 87 year-old male with a PMH significant for HTN, CAD s/p CABG, CVA, CKD, AAA s/ p repair, seizure disorder, chronic respiratory failure, G-tube, dementia, and BPH. Admitted for severe sepsis secondary to pneumonia and MALINDA. Severe sepsis secondary to pneumonia --Less congested today after stopping Jevity feeds -Surgical consult ordered re: switching G-tube to PEG tube d/t concern for aspiration. --CXR with bilateral infiltrates 05/25/18 -repeat from 05/29/18: right base inflitrate persists, left base improved. -Elevated temp this AM of 100.8, now afebrile --Blood Culture: S. epidermis -No growth on repeat BC -Continue Zosyn, will d/c soon as this is day 5 -HOB at 45 degrees -repeat CXR ordered -ID Dr. Duncan following -Palliative care team consult ordered UTI -UA: 3+ Esterase, WBC 1280 -Culture: Urine: E. faecalis -Patient on Zosyn Acute on chronic kidney disease Azotemia -Left hydronephrosis visualized on abdominal CT -Cr improving, 2.4 upon admission, now 1.4 (baseline 1.1) -14f Coudet catheter, inserted Saturday day, draining well -IV fluids Hypokalemia -2.8 today -given K 10 MEQ iv -Monitor BMP Hypertension -Continue home medications -Amlodipine -Metoprolol Seizure disorder -Hx of subdural hematoma, [address] Marlow. -Seen by neurologist Dr. Stokes -continue current dose of Keppra -Dilantin 100 mg BID -Head CT ordered for Saturday at the request of girlfriend Brnady Moss, will consider further reducing dilantin dose b/c concern for sedation Chronic respiratory failure -Duonebs QID -O2 @ 2LPM -Seen by dealer sales manager Dr. Redmond BPH -Continue tamsulosin Hypothyroidism -Continue Levothyroxine Glaucoma -Continue Timolol and Alphagan gtts GI phrophylaxis -Protonix FEN Fluids: NS @ 50mL/hr Electrolytes: replete as indicated Nutrition: Osmolite 1.2 DVT Prophylaxis -Heparin SQ Dispo: pt currently requires further inpatient care. DNR Visit type - Emergency Visit Emergency Visit: No - New Patient This patient is new to me today: No - Critical Care Critical Care patient: No
[2018-05-31] MEDS ORDERED: PIPERACILLIN/TAZOBACTAM 2.25 GM VIAL IVPB ONE ×3 (00:16→17:18)
[2018-05-31] MEDS ORDERED: DEXTROSE 5%-WATER - 50 ML IVPB ONE ×3 (00:16→17:18)
[2018-05-31] MEDS: PIPERACILLIN/TAZOB 2.25 GM 2.25 GM in DEXTROSE 5%-WATER - 50 ML IVPB SCH ×3 (01:40→17:31)
[2018-05-31] MEDS: SODIUM CHLORIDE 1,000 ML IV SCH (01:42)
[2018-05-31] MEDS: LEVOTHYROXINE NA 50 MCG TABLET (FP) PEG SCH (05:56)
[2018-05-31 08:02] LABS: HEMATOCRIT 23.2 % (35.4-49); HEMOGLOBIN 8.3 GM/dL (11.7-16.9); MCH 31.8 pg (25.7-33.7); MEAN CELL VOLUME 88.4 fl (80-96); MEAN PLT VOLUME 7.1 fl (7.5-11.1); PLATELET COUNT 310 K/MM3 (134-434); RBC 2.62 M/mm3 (4.00-5.60); RDW 13.8 % (11.9-15.9); WHITE BLOOD COUNT 7.1 K/mm3 (4.0-10.0)
--- NOTE | 2018-05-31 08:20 | PN ---
Physical Exam: SUBJECTIVE: Patient seen and examined at the bedside. OBJECTIVE More awake and alert, attempts to say his name, but speech is garbled. Please keep HOB @ 45degrees when being fed, stop feeds with cares. pt high aspiration risk. called patient's designated agent: Brandy Moss [phone] @ 0845. awaiting call back. Period Temp Pulse Resp BP Sys/Michel Pulse Ox Last 24 Hr 97.8 F-100.8 F 74-80 18-20 140-163/70-84 97-97 GENERAL: The patient is awake, more alert, no acute distress, attempts to say his name, but speech is incomprehensible. appears comfortable at rest. cachectic, protruding clavicles, easily palpable chest bones HEAD: Normal with no signs of trauma. EYES: PERRL, extraocular movements intact, sclera anicteric, conjunctiva clear. No ptosis. ENT: Ears normal, nares patent, oropharynx clear without exudates, moist mucous membranes. NECK: Trachea midline, full range of motion, supple. LUNGS: diminished bilaterally, breathing less labored. HEART: Regular rate and rhythm ABDOMEN: Soft, nontender, nondistended, normoactive bowel sounds, +g tube EXTREMITIES: 2+ pulses, warm, well-perfused, no edema. NEUROLOGICAL: garbled speech, facial symmetry PSYCH: calm Laboratory Results - last 24 hr 05/30/18 05/30/18 05/30/18 06:30 06:30 19:00 WBC 7.2 RBC 2.82 L Hgb 8.4 L Hct 25.2 L MCV 89.4 MCH 29.9 MCHC 33.5 RDW 14.5 Plt Count 313 MPV 7.3 L Absolute Neuts (auto) 4.2 Neutrophils % 58.1 D Lymphocytes % 17.7 D Monocytes % 9.3 Eosinophils % 14.4 H D Basophils % 0.5 Nucleated RBC % 0 Sodium 148 H Potassium 2.8 L* 3.3 L Chloride 112 H Carbon Dioxide 27 Anion Gap 10 BUN 24 H Creatinine 1.4 H Creat Clearance w eGFR 47.94 Random Glucose 84 Calcium 8.2 L 05/31/18 06:40 WBC 7.1 RBC 2.62 L Hgb 8.3 L Hct 23.2 L MCV 88.4 MCH 31.8 MCHC 36.0 H RDW 13.8 Plt Count 310 MPV 7.1 L Absolute Neuts (auto) Neutrophils % Lymphocytes % Monocytes % Eosinophils % Basophils % Nucleated RBC % Sodium Potassium Chloride Carbon Dioxide Anion Gap BUN Creatinine Creat Clearance w eGFR Random Glucose Calcium Active Medications Generic Name Dose Route Start Last Admin Trade Name Freq PRN Reason Stop Dose Admin Acetaminophen 650 mg 05/25/18 12:01 05/30/18 09:43 Tylenol - PO 650 mg Q6H PRN Administration FEVER Amlodipine Besylate 10 mg 05/29/18 15:45 05/30/18 09:43 Norvasc - PEG 10 mg DAILY KRISTY Administration Brimonidine Tartrate 1 drop 05/25/18 12:45 05/30/18 09:44 Alphagan 0.2% - OD 1 drop DAILY KRISTY Administration Heparin Sodium (Porcine) 5,000 unit 05/25/18 22:00 05/30/18 21:31 Heparin - SQ 5,000 unit BID KRISTY Administration Piperacillin Sod/Tazobactam 50 mls @ 100 mls/hr 05/25/18 14:00 05/31/18 01:40 Sod 2.25 gm/ Dextrose IVPB 100 mls/hr Q8H-IV KRISTY Administration Protocol Sodium Chloride 1,000 mls @ 50 mls/hr 05/29/18 15:42 05/31/18 01:42 Normal Saline - IV 50 mls/hr ASDIR KRISTY Administration Levetiracetam 500 mg 05/25/18 12:45 05/30/18 21:31 Keppra Oral Solution - PEG 500 mg BID KRISTY Administration Levothyroxine Sodium 50 mcg 05/25/18 12:45 05/31/18 05:56 Synthroid - PEG 50 mcg DAILY@0600 KRISTY Administration Metoprolol Tartrate 50 mg 05/29/18 22:00 05/30/18 21:31 Lopressor - PEG 50 mg BID KRISTY Administration Pantoprazole Sodium 40 mg 05/25/18 12:45 05/30/18 09:43 Protonix Packets For Oral Suspension - PEG 40 mg DAILY KRISTY Administration Phenytoin Sodium 100 mg 05/26/18 22:00 05/30/18 21:31 Dilantin Oral Suspension - GT 100 mg BID KRISTY Administration Tamsulosin HCl 0.4 mg 05/25/18 12:30 05/30/18 09:43 Flomax - PO 0.4 mg DAILY@0830 KRISTY Administration Timolol Maleate 1 drop 05/25/18 12:15 05/30/18 09:44 Timoptic 0.5% OD 1 drop DAILY KRISTY Administration ASSESSMENT/PLAN: Patient is an 87 year-old male with a past medical history as noted below. He is from [facility] and comes to [facility] on 05/25/2018 for severe sepsis secondary to pneumonia and MALINDA. problem list: Severe sepsis secondary to pneumonia UTI Acute on chronic kidney disease Azotemia Hypokalemia Hypertension Seizure disorder Chronic respiratory failure BPH Hypothyroidism Glaucoma Cachexia MALINDA ID/Pulm. Sepsis/pneumonia Chronic respiratory failure lung sounds improving. given sterioids x 1 on 05/30/18 On Zosyn day#6. duonebs. airway support possible switch of feeding tube from g tube to G/J tube to minimize risk of aspiration chest xray with right base infiltrates on oxygen therapy @ 2 liters with stable saturations Pulm following +Blood culture (staph epi), repeat with no growth to date Please keep HOB no lower than 45 degrees as it minimizes the risk of aspiration. ID following : UTI: + ua, elevated wbc, + leuks. On zosyn coverage BPH. on flomax left hydronephrosis seen on CT imaging. urology consulted. Renal: Acute on chronic kidney disease/Azotemia left hydro on abd ct. creat improving. 14f cath sotelo on ivf w/K Hypokalemia. K dropped again today > on NS with K, given 1 K rider. repeat K this afternoon. monitor daily bmps card: Hypertension: controlled. on amlodipine, metoprolol. Neuro: Seizure disorder. hx of subdural hematoma, 2 evacuations. followed by neuro. On dilantin 100mg bid. head ct for saturday as per neuro. Endocrine: Hypothyroidism. on Levothyroxine fen on ns/10meq @ 75 hypokalemia, repleted. repeat today osmolite tube feeds 24 hours continuous prophy protonix disposition: dnr based on non hospital form. hcp given molst form to sign. She wants his acute issues treated but no chest compressions. Visit type - Emergency Visit Emergency Visit: Yes ED Registration Date: 05/25/18 Care time: The patient presented to the Emergency Department on the above date and was hospitalized for further evaluation of their emergent condition. - New Patient This patient is new to me today: Yes Date on this admission: 05/31/18 - Critical Care Critical Care patient: No - Discharge Referral Referred to [facility] No
[2018-05-31 09:08] LABS: ANION GAP 8 MMOL/L (8-16); BLOOD UREA NITROGEN 26 mg/dL (7-18); CHLORIDE 112 mmol/L (98-107); CO2 27 mmol/L (21-32); CREATININE 1.4 mg/dL (0.55-1.3); GLUCOSE,RANDOM 106 mg/dL (74-106); SODIUM 147 mmol/L (136-145)
--- NOTE | 2018-05-31 09:14 | PN ---
Progress Note, Physician History of Present Illness: looking much better more awake and alert responding - Current Medication List Current Medications: Active Medications Acetaminophen (Tylenol -) 650 mg PO Q6H PRN PRN Reason: FEVER Last Admin: 05/30/18 09:43 Dose: 650 mg Amlodipine Besylate (Norvasc -) 10 mg PEG DAILY [facility] Last Admin: 05/30/18 09:43 Dose: 10 mg Brimonidine Tartrate (Alphagan 0.2% -) 1 drop OD DAILY [facility] Last Admin: 05/30/18 09:44 Dose: 1 drop Heparin Sodium (Porcine) (Heparin -) 5,000 unit SQ BID [facility] Last Admin: 05/30/18 21:31 Dose: 5,000 unit Piperacillin Sod/Tazobactam (Sod 2.25 gm/ Dextrose) 50 mls @ 100 mls/hr IVPB Q8H-IV [facility]; Protocol Last Admin: 05/31/18 01:40 Dose: 100 mls/hr Sodium Chloride (Normal Saline -) 1,000 mls @ 50 mls/hr IV ASDIR [facility] Last Admin: 05/31/18 01:42 Dose: 50 mls/hr Levetiracetam (Keppra Oral Solution -) 500 mg PEG BID [facility] Last Admin: 05/30/18 21:31 Dose: 500 mg Levothyroxine Sodium (Synthroid -) 50 mcg PEG DAILY@0600 [facility] Last Admin: 05/31/18 05:56 Dose: 50 mcg Metoprolol Tartrate (Lopressor -) 50 mg PEG BID [facility] Last Admin: 05/30/18 21:31 Dose: 50 mg Pantoprazole Sodium (Protonix Packets For Oral Suspension -) 40 mg PEG DAILY [facility] Last Admin: 05/30/18 09:43 Dose: 40 mg Phenytoin Sodium (Dilantin Oral Suspension -) 100 mg GT BID [facility] Last Admin: 05/30/18 21:31 Dose: 100 mg Tamsulosin HCl (Flomax -) 0.4 mg PO DAILY@0830 [facility] Last Admin: 05/30/18 09:43 Dose: 0.4 mg Timolol Maleate (Timoptic 0.5%) 1 drop OD DAILY [facility] Last Admin: 05/30/18 09:44 Dose: 1 drop - Objective Vital Signs: Vital Signs Temperature 98.6 F 05/31/18 06:03 Pulse Rate 75 05/31/18 06:03 Respiratory Rate 20 05/31/18 06:03 Blood Pressure 151/78 05/31/18 06:03 O2 Sat by Pulse Oximetry (%) 97 05/30/18 21:00 Constitutional: Yes: No Distress, Calm Cardiovascular: Yes: Regular Rate and Rhythm Respiratory: Yes: Regular, CTA Bilaterally Gastrointestinal: Yes: Normal Bowel Sounds, Soft Genitourinary: Yes: Penny Present Musculoskeletal: Yes: WNL Extremities: Yes: WNL Neurological: Yes: Alert Psychiatric: Yes: Other Labs: CBC, BMP 05/31/18 06:40 05/31/18 06:40 INR, PTT INR 1.27 (0.83-1.09) H 05/25/18 05:25 Assessment/Plan Problem List - Problems (1) Sepsis Code(s): A41.9 - SEPSIS, UNSPECIFIED ORGANISM (2) MALINDA (acute kidney injury) Code(s): N17.9 - ACUTE KIDNEY FAILURE, UNSPECIFIED (3) Aneurysm of infrarenal abdominal aorta Code(s): I71.4 - ABDOMINAL AORTIC ANEURYSM, WITHOUT RUPTURE (4) CAD (coronary artery disease) Code(s): I25.10 - ATHSCL HEART DISEASE OF [place] CORONARY ARTERY W/O ANG PCTRS Qualifiers: [place] vs. transplanted heart: [place] heart Associated angina: without angina (5) Cerebrovascular accident (CVA) Code(s): I63.9 - CEREBRAL INFARCTION, UNSPECIFIED (6) HTN (hypertension) Code(s): I10 - ESSENTIAL (PRIMARY) HYPERTENSION Qualifiers: Hypertension type: essential hypertension Qualified Code(s): I10 - Essential (primary) hypertension (7) History of endovascular stent graft for abdominal aortic aneurysm (AAA) Code(s): Z95.828 - PRESENCE OF OTHER VASCULAR IMPLANTS AND GRAFTS (8) Hyperlipidemia Code(s): E78.5 - HYPERLIPIDEMIA, UNSPECIFIED Qualifiers: Hyperlipidemia type: pure hypercholesterolemia Qualified Code(s): E78.00 - Pure hypercholesterolemia, unspecified; E78.0 - Pure hypercholesterolemia (9) Pneumonia Code(s): J18.9 - PNEUMONIA, UNSPECIFIED ORGANISM Qualifiers: Pneumonia type: aspiration pneumonia (10) Respiratory failure Code(s): J96.90 - RESPIRATORY FAILURE, UNSP, UNSP W HYPOXIA OR HYPERCAPNIA (11) S/P CABG (coronary artery bypass graft) Code(s): Z95.1 - PRESENCE OF AORTOCORONARY BYPASS GRAFT (12) Functional quadriplegia Code(s): R53.2 - FUNCTIONAL QUADRIPLEGIA 13 gm positive bacteria 14 uti Assessment/Plan 87 y.o. male with PMH of CVA, dysphagia s/p peg placement, CAD s/p CABG, AAA s/ p repair, seizure d.o. , HTN, and hypothyroidism presenting for vomiting of peg feeds Sepsis PNA - likely aspiration Respiratory distress MALINDA Lt hydronephrosis Fever CAD s/p CABG AAA repair CVA with dysphagia patient still with lung symptoms,aspiration risk lot of secretions plan continue suctioning continue abx nutrition asp precautions will deescalate abx tomorrow if patient remains stable probably needs peg tube
[2018-05-31 09:17] LABS: POTASSIUM 2.8 mmol/L (3.5-5.1)
[2018-05-31] MEDS ORDERED: KCL 10 MEQ IVPB 10 MEQ/100 ML INFUS.BAG IVPB SCH ×2 (09:30→15:30)
[2018-05-31] MEDS ORDERED: PT OWN MED DRAWER 7, Y5N ONE ×2 (09:34→21:08)
[2018-05-31] MEDS: PANTOPRAZOLE SOD 40 MG SUSPENSION PACKET PEG SCH (09:48)
[2018-05-31] MEDS: amLODIPine BESYLATE 5 MG TABLET (FP) PEG SCH (09:48)
[2018-05-31] MEDS: TAMSULOSIN HCL 0.4 MG CAP PO SCH (09:48)
[2018-05-31] MEDS: HEPARIN NA (PORCINE) 5,000 UNITS/ML 1ML VIAL SQ SCH (09:48)
[2018-05-31] MEDS: METOPROLOL TARTRATE 50 MG TABLET (FP) PEG SCH ×2 (09:48→22:28)
[2018-05-31] MEDS: levETIRAcetam 500 MG/5 ML ORAL SOLUTION (UNIT-DOSE CUPS) PEG SCH ×2 (09:49→22:28)
[2018-05-31] MEDS: BRIMONIDINE TARTRATE 0.2% OPHTHALMIC 5 ML BOTTLE OD SCH (09:49)
[2018-05-31] MEDS: PHENYTOIN 100 MG/4 ML U-D CUP GT SCH ×2 (09:49→22:28)
[2018-05-31] MEDS: TIMOLOL 0.5% OPHTHALMIC SOL 5 ML BOTTLE OD SCH (09:49)
[2018-05-31] MEDS: POTASSIUM CHLORIDE 10 MEQ in SODIUM CHLORIDE 1,000 ML IVPB SCH (10:33)
[2018-05-31 10:54] LABS: MAGNESIUM 1.6 mg/dL (1.8-2.4)
--- NOTE | 2018-05-31 11:57 | PN ---
Progress Note (short form) - Note Progress Note: 87 year old man known to me , He has history of seizure following subdural hemato evacuation. It was evacuated twice. Patient also have history of CKD, Stroke, cabg, ibs, peg tube placement. He appears bright and was seen with his girl friend and AIR TRAFFIC CONTROL OPERATOR at the bed side. There is plan to review his peg tube placement. p NEUROLOGICAL EXAMINATION: He is breathing heavy, and he has been npo, and opens his eye but not responding to verbal command. There is no twitching or seizure activity was seen Left isde is moving more than right side pupils are small and left side there is eivdence of old surgery ? glaucoma Ct no ct head done this time Would repeat ct on saturday at request of her girlfriend on saturday am Assessment : 87 year old male with multiple medical problem had subdural hematoma and has evacuation done by dr guerra twice. He is non verbal as baseline. He appears bright and attempting to talk and able to follow simple command Plan: continue keppra same dose of 500 mg bid and dilantin was reduced to 100 mg po bid , repeat ct head on saturday morning and consider reducing dilantin further and may add low dose lamictal to cover for dilantin. - would follow with primary Thanking you so much Ashwin Stokes MD
--- NOTE | 2018-05-31 12:32 | PN ---
Progress Note (short form) - Note Progress Note: PULMONARY AFEBRILE HYPOKALEMIC DYSARTHRIC DIMINISHED WITH SCATTERED RHONCHI S1S2 PEG NO EDEMA LABS/MEDS/NOTES/IMAGES REVIEWED IMP RESPIRATORY DISTRESS BILATERAL PNEUMONIA LIKELY ASPIRATION H/O SUBDURAL HEMATOMA DEMENTIA ACUTE ON CHRONIC KIDNEY INJURY PLAN IV ABX INHALED BRONCHODILATORS O2 F/U CHEST -RAYS ORAL-PHARYNGEAL SUCTIONING CULTURES MONITOR LYTES,CBC,RENAL FUNCTION IVF REPLETE Lorraine SANTOS MD
[2018-05-31] MEDS ORDERED: MAGNESIUM SULF 50% (8.12 MEQ/2 ML-1 GM VIAL) IVPB ONE (13:06)
[2018-06-01] MEDS ORDERED: DEXTROSE 5%-WATER - 50 ML IVPB ONE ×2 (01:03→11:51)
[2018-06-01] MEDS ORDERED: PIPERACILLIN/TAZOBACTAM 2.25 GM VIAL IVPB ONE ×2 (01:03→11:50)
[2018-06-01] MEDS: PIPERACILLIN/TAZOB 2.25 GM 2.25 GM in DEXTROSE 5%-WATER - 50 ML IVPB SCH (02:30)
[2018-06-01] MEDS: LEVOTHYROXINE NA 50 MCG TABLET (FP) PEG SCH (05:55)
[2018-06-01] MEDS: POTASSIUM CHLORIDE 10 MEQ in SODIUM CHLORIDE 1,000 ML IVPB SCH ×2 (06:20→11:27)
[2018-06-01 09:15] LABS: BASO % 0.5 % (0-2.0); EOS % 18.5 % (0-4.5); HEMATOCRIT 24.4 % (35.4-49); HEMOGLOBIN 8.8 GM/dL (11.7-16.9); MCH 31.7 pg (25.7-33.7); MCHC 35.9 g/dl (32.0-35.9); MEAN CELL VOLUME 88.2 fl (80-96); MEAN PLT VOLUME 6.9 fl (7.5-11.1); MONO % 10.3 % (3.8-10.2); NEUT % 53.7 % (42.8-82.8); PLATELET COUNT 312 K/MM3 (134-434); RBC 2.76 M/mm3 (4.00-5.60); RDW 14.3 % (11.9-15.9); WHITE BLOOD COUNT 7.9 K/mm3 (4.0-10.0)
[2018-06-01 09:38] LABS: ALBUMIN 2.1 g/dl (3.4-5.0); ALK PHOS 131 U/L (45-117); ANION GAP 9 MMOL/L (8-16); BILIRUBIN,TOTAL 0.3 mg/dL (0.2-1); BLOOD UREA NITROGEN 20 mg/dL (7-18); CALCIUM 7.3 mg/dL (8.5-10.1); CHLORIDE 113 mmol/L (98-107); CO2 24 mmol/L (21-32); CREATININE 1.2 mg/dL (0.55-1.3); GLUCOSE,RANDOM 132 mg/dL (74-106); MAGNESIUM 1.5 mg/dL (1.8-2.4); SGOT/AST 32 U/L (15-37); SGPT/ALT 37 U/L (13-61); SODIUM 147 mmol/L (136-145); TOT PROT 5.5 g/dl (6.4-8.2)
[2018-06-01 09:42] LABS: POTASSIUM 2.8 mmol/L (3.5-5.1)
--- NOTE | 2018-06-01 10:47 | PN ---
Progress Note, Physician History of Present Illness: patient with failure to thrive aspiration risk stable no new issues - Current Medication List Current Medications: Active Medications Acetaminophen (Tylenol -) 650 mg PO Q6H PRN PRN Reason: FEVER Last Admin: 05/30/18 09:43 Dose: 650 mg Amlodipine Besylate (Norvasc -) 10 mg PEG DAILY [facility] Last Admin: 05/31/18 09:48 Dose: 10 mg Brimonidine Tartrate (Alphagan 0.2% -) 1 drop OD DAILY [facility] Last Admin: 05/31/18 09:49 Dose: 1 drop Piperacillin Sod/Tazobactam (Sod 2.25 gm/ Dextrose) 50 mls @ 100 mls/hr IVPB Q8H-IV [facility]; Protocol Last Admin: 06/01/18 02:30 Dose: 100 mls/hr Potassium Chloride 10 meq/ (Sodium Chloride) 1,005 mls @ 75 mls/hr IVPB ASDIR [facility] Last Admin: 06/01/18 06:20 Dose: 75 mls/hr Potassium Chloride (Potassium Chloride 10 Meq Premix Ivpb -) 10 meq in 100 mls @ 100 mls/hr IVPB Q60M [facility] Stop: 06/01/18 11:59 Levetiracetam (Keppra Oral Solution -) 500 mg PEG BID [facility] Last Admin: 05/31/18 22:28 Dose: 500 mg Levothyroxine Sodium (Synthroid -) 50 mcg PEG DAILY@0600 [facility] Last Admin: 06/01/18 05:55 Dose: 50 mcg Metoprolol Tartrate (Lopressor -) 50 mg PEG BID [facility] Last Admin: 05/31/18 22:28 Dose: 50 mg Pantoprazole Sodium (Protonix Packets For Oral Suspension -) 40 mg PEG DAILY [facility] Last Admin: 05/31/18 09:48 Dose: 40 mg Phenytoin Sodium (Dilantin Oral Suspension -) 100 mg GT BID [facility] Last Admin: 05/31/18 22:28 Dose: 100 mg Tamsulosin HCl (Flomax -) 0.4 mg PO DAILY@0830 [facility] Last Admin: 05/31/18 09:48 Dose: 0.4 mg Timolol Maleate (Timoptic 0.5%) 1 drop OD DAILY [facility] Last Admin: 05/31/18 09:49 Dose: 1 drop - Objective Vital Signs: Vital Signs Temperature 98.1 F 11/03/18 21:00 Pulse Rate 65 05/31/18 21:00 Respiratory Rate 18 05/31/18 21:00 Blood Pressure 132/61 05/31/18 21:00 O2 Sat by Pulse Oximetry (%) 97 05/31/18 21:00 Constitutional: Yes: No Distress, Calm Cardiovascular: Yes: Regular Rate and Rhythm Respiratory: Yes: Poor Air Entry (bases), Other Gastrointestinal: Yes: Normal Bowel Sounds, Soft Genitourinary: Yes: Penny Present Musculoskeletal: Yes: WNL Extremities: Yes: WNL Neurological: Yes: Alert, Other Psychiatric: Yes: Alert Labs: CBC, BMP 06/01/18 08:41 06/01/18 08:44 INR, PTT INR 1.27 (0.83-1.09) H 05/25/18 05:25 Assessment/Plan Problem List - Problems (1) Sepsis Code(s): A41.9 - SEPSIS, UNSPECIFIED ORGANISM (2) MALINDA (acute kidney injury) Code(s): N17.9 - ACUTE KIDNEY FAILURE, UNSPECIFIED (3) Aneurysm of infrarenal abdominal aorta Code(s): I71.4 - ABDOMINAL AORTIC ANEURYSM, WITHOUT RUPTURE (4) CAD (coronary artery disease) Code(s): I25.10 - ATHSCL HEART DISEASE OF [place] CORONARY ARTERY W/O ANG PCTRS Qualifiers: [place] vs. transplanted heart: [place] heart Associated angina: without angina (5) Cerebrovascular accident (CVA) Code(s): I63.9 - CEREBRAL INFARCTION, UNSPECIFIED (6) HTN (hypertension) Code(s): I10 - ESSENTIAL (PRIMARY) HYPERTENSION Qualifiers: Hypertension type: essential hypertension Qualified Code(s): I10 - Essential (primary) hypertension (7) History of endovascular stent graft for abdominal aortic aneurysm (AAA) Code(s): Z95.828 - PRESENCE OF OTHER VASCULAR IMPLANTS AND GRAFTS (8) Hyperlipidemia Code(s): E78.5 - HYPERLIPIDEMIA, UNSPECIFIED Qualifiers: Hyperlipidemia type: pure hypercholesterolemia Qualified Code(s): E78.00 - Pure hypercholesterolemia, unspecified; E78.0 - Pure hypercholesterolemia (9) Pneumonia Code(s): J18.9 - PNEUMONIA, UNSPECIFIED ORGANISM Qualifiers: Pneumonia type: aspiration pneumonia (10) Respiratory failure Code(s): J96.90 - RESPIRATORY FAILURE, UNSP, UNSP W HYPOXIA OR HYPERCAPNIA (11) S/P CABG (coronary artery bypass graft) Code(s): Z95.1 - PRESENCE OF AORTOCORONARY BYPASS GRAFT (12) Functional quadriplegia Code(s): R53.2 - FUNCTIONAL QUADRIPLEGIA 13 gm positive bacteria 14 uti Assessment/Plan 87 y.o. male with PMH of CVA, dysphagia s/p peg placement, CAD s/p CABG, AAA s/ p repair, seizure d.o. , HTN, and hypothyroidism presenting for vomiting of peg feeds Sepsis PNA - likely aspiration Respiratory distress MALINDA Lt hydronephrosis Fever CAD s/p CABG AAA repair CVA with dysphagia patient still with lung symptoms,aspiration risk lot of secretions plan continue suctioning will stop abx nutrition asp precautions consider peg
[2018-06-01] MEDS: amLODIPine BESYLATE 5 MG TABLET (FP) PEG SCH (11:26)
[2018-06-01] MEDS: PANTOPRAZOLE SOD 40 MG SUSPENSION PACKET PEG SCH (11:26)
[2018-06-01] MEDS: METOPROLOL TARTRATE 50 MG TABLET (FP) PEG SCH ×2 (11:27→21:20)
[2018-06-01] MEDS: PHENYTOIN 100 MG/4 ML U-D CUP GT SCH ×2 (11:27→21:21)
[2018-06-01] MEDS: TAMSULOSIN HCL 0.4 MG CAP PO SCH (11:27)
[2018-06-01] MEDS: TIMOLOL 0.5% OPHTHALMIC SOL 5 ML BOTTLE OD SCH (11:28)
[2018-06-01] MEDS: BRIMONIDINE TARTRATE 0.2% OPHTHALMIC 5 ML BOTTLE OD SCH (11:29)
[2018-06-01] MEDS: levETIRAcetam 500 MG/5 ML ORAL SOLUTION (UNIT-DOSE CUPS) PEG SCH ×2 (11:29→21:21)
[2018-06-01] MEDS: KCL 10 MEQ IVPB 10 MEQ/100 ML INFUS.BAG IVPB SCH ×3 (11:30→13:02)
--- NOTE | 2018-06-01 13:23 | PN ---
Progress Note (short form) - Note Progress Note: PULMONARY AFEBRILE HYPOKALEMIC 2.8 DYSARTHRIC DIMINISHED WITH SCATTERED RHONCHI S1S2 PEG NO EDEMA LABS/MEDS/NOTES/IMAGES REVIEWED IMP RESPIRATORY DISTRESS BILATERAL PNEUMONIA LIKELY ASPIRATION H/O SUBDURAL HEMATOMA DEMENTIA ACUTE ON CHRONIC KIDNEY INJURY PLAN IV ABX INHALED BRONCHODILATORS O2 F/U CHEST -RAYS ORAL-PHARYNGEAL SUCTIONING CULTURES MONITOR LYTES,CBC,RENAL FUNCTION IVF REPLETE Lorraine SANTOS MD
--- NOTE | 2018-06-01 16:12 | PN ---
Progress Note (short form) - Note Progress Note: 87 year old man known to me , He has history of seizure following subdural hemato evacuation. It was evacuated twice. Patient also have history of CKD, Stroke, cabg, ibs, peg tube placement. He is sleepy,no acute seizure . is due for repeat ct head tomorrow NEUROLOGICAL EXAMINATION: He is breathing heavy, and he has been npo, and opens his eye but not responding to verbal command. There is no twitching or seizure activity was seen Left isde is moving more than right side pupils are small and left side there is eivdence of old surgery ? glaucoma Ct no ct head done this time Would repeat ct on saturday at request of her girlfriend on saturday am Assessment : 87 year old male with multiple medical problem had subdural hematoma and has evacuation done by dr guerra twice. He is non verbal as baseline. He appears bright and attempting to talk and able to follow simple command Plan: continue keppra same dose of 500 mg bid and dilantin was reduced to 100 mg po bid , repeat ct head tomorrow am, and consider reducing dilnatin further - would follow with primary Thanking you so much Ashwin Stokes MD
--- NOTE | 2018-06-01 17:37 | PN ---
Physical Exam: SUBJECTIVE: Patient seen and examined at the bedside. OBJECTIVE: Vital Signs Period Temp Pulse Resp BP Sys/Michel Pulse Ox Last 24 Hr 97.3 F-98.1 F 65-75 18-18 132-164/61-85 97 GENERAL: The patient is awake, lethargic at times. attempts to say his name, but speech is incomprehensible. appears comfortable at rest. cachectic, protruding clavicles, easily palpable chest bones HEAD: Normal with no signs of trauma. EYES: PERRL, extraocular movements intact, sclera anicteric, conjunctiva clear. No ptosis. ENT: Ears normal, nares patent, oropharynx clear without exudates, moist mucous membranes. NECK: Trachea midline, full range of motion, supple. LUNGS: diminished bilaterally, breathing less labored. HEART: Regular rate and rhythm ABDOMEN: Soft, nontender, nondistended, normoactive bowel sounds, +g tube EXTREMITIES: 2+ pulses, warm, well-perfused, no edema. NEUROLOGICAL: garbled speech, facial symmetry PSYCH: calm Laboratory Results - last 24 hr 06/01/18 06/01/18 08:41 08:44 WBC 7.9 RBC 2.76 L Hgb 8.8 L Hct 24.4 L MCV 88.2 MCH 31.7 MCHC 35.9 RDW 14.3 Plt Count 312 MPV 6.9 L Absolute Neuts (auto) 4.2 Neutrophils % 53.7 Lymphocytes % 17.0 Monocytes % 10.3 H Eosinophils % 18.5 H Basophils % 0.5 Nucleated RBC % 0 Sodium 147 H Potassium 2.8 L* Chloride 113 H Carbon Dioxide 24 Anion Gap 9 BUN 20 H Creatinine 1.2 Creat Clearance w eGFR 57.27 Random Glucose 132 H Calcium 7.3 L Magnesium 1.5 L Total Bilirubin 0.3 AST 32 ALT 37 Alkaline Phosphatase 131 H Total Protein 5.5 L Albumin 2.1 L Active Medications Generic Name Dose Route Start Last Admin Trade Name Freq PRN Reason Stop Dose Admin Acetaminophen 650 mg 05/25/18 12:01 05/30/18 09:43 Tylenol - PO 650 mg Q6H PRN Administration FEVER Amlodipine Besylate 10 mg 05/29/18 15:45 06/01/18 11:26 Norvasc - PEG 10 mg DAILY [facility] Administration Brimonidine Tartrate 1 drop 05/25/18 12:45 06/01/18 11:29 Alphagan 0.2% - OD 1 drop DAILY [facility] Administration Potassium Chloride 10 meq/ 1,005 mls @ 75 mls/hr 05/31/18 09:30 06/01/18 11: 27 Sodium Chloride IVPB 75 mls/hr ASDIR [facility]STY Administration Levetiracetam 500 mg 05/25/18 12:45 06/01/18 11:29 Keppra Oral Solution - PEG 500 mg BID [facility] Administration Levothyroxine Sodium 50 mcg 05/25/18 12:45 06/01/18 05:55 Synthroid - PEG 50 mcg DAILY@0600 [facility] Administration Metoprolol Tartrate 50 mg 05/29/18 22:00 06/01/18 11:27 Lopressor - PEG 50 mg BID [facility] Administration Pantoprazole Sodium 40 mg 05/25/18 12:45 06/01/18 11:26 Protonix Packets For Oral Suspension - PEG 40 mg DAILY [facility] Administration Phenytoin Sodium 100 mg 05/26/18 22:00 06/01/18 11:27 Dilantin Oral Suspension - GT 100 mg BID [facility] Administration Tamsulosin HCl 0.4 mg 05/25/18 12:30 06/01/18 11:27 Flomax - PO 0.4 mg DAILY@0830 [facility] Administration Timolol Maleate 1 drop 05/25/18 12:15 06/01/18 11:28 Timoptic 0.5% OD 1 drop DAILY [facility] Administration ASSESSMENT/PLAN: Patient is an 87 year-old male with a past medical history as noted below. He is from [facility] and comes to [facility] on 05/25/2018 for severe sepsis secondary to pneumonia and MALINDA. problem list: Severe sepsis secondary to pneumonia UTI Acute on chronic kidney disease Azotemia Hypokalemia Hypertension Seizure disorder Chronic respiratory failure BPH Hypothyroidism Glaucoma Cachexia MALINDA ID/Pulm. Sepsis/pneumonia Chronic respiratory failure lung sounds improving. given sterioids x 1 on 05/30/18 On Zosyn day#7. duonebs. airway support possible switch of feeding tube from g tube to G/J tube to minimize risk of aspiration, IR consult chest xray with right base infiltrates on oxygen therapy @ 2 liters with stable saturations Pulm following +Blood culture (staph epi), repeat with no growth to date Please keep HOB no lower than 45 degrees as it minimizes the risk of aspiration. ID following : UTI: + ua, elevated wbc, + leuks. On zosyn coverage BPH. on flomax left hydronephrosis seen on CT imaging. urology consulted. Renal: Acute on chronic kidney disease/Azotemia left hydro on abd ct. creat improving. 14f cath sotelo on ivf w/K Hypokalemia. K dropped again today > on NS with K, given 2 K rider. repeat K this afternoon. monitor daily bmps card: Hypertension: controlled. on amlodipine, metoprolol. Neuro: Seizure disorder. hx of subdural hematoma, 2 evacuations. followed by neuro. On dilantin 100mg bid. head ct for saturday as per neuro. Endocrine: Hypothyroidism. on Levothyroxine fen on ns/20meq @ 75 hypokalemia, repleted. repeat today osmolite tube feeds 24 hours continuous prophy protonix disposition: dnr based on non hospital form. molst form signed. Visit type - Emergency Visit Emergency Visit: Yes ED Registration Date: 05/25/18 Care time: The patient presented to the Emergency Department on the above date and was hospitalized for further evaluation of their emergent condition. - New Patient This patient is new to me today: No - Critical Care Critical Care patient: No - Discharge Referral Referred to [facility] Med P.C.: No
[2018-06-01] MEDS: SODIUM CHLORIDE 0.9%/KCL 20 MEQ/1,000 ML INFUS.BAG IV SCH (17:45)
--- NOTE | 2018-06-01 17:53 | CON.GU ---
Consult - History of Present Illness History of Present Illness: 87 yo male with multiple medical problems, including BPH. On CT noted to have distended bladder and left hydronephrosis to the level of the bladder. 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 No: AFIB, Aneurysm, Aortic Insufficiency, Aortic Stenosis, CHF, Deep Vein Thrombosis, [place], Mitral Insufficiency, Mitral Stenosis, Murmur, Pulmonary Hypertension Pulmonary: Yes: Pneumonia Gastrointestinal: Yes: Irritable Bowel Disease Musculoskeletal: Yes: Chronic low back pain (with radiculopathy) Rheumatology: Yes: Gout, Other (Polymyalgia Rheumatica) Endocrine: Yes: Hypothyroidism. No: [place]'s Disease, [place]'s Disease, Diabetes Insipidus, Diabetes Mellitus, Hyperparathyroidism, Hyperthyroidism, Osteopenia, SIADH, Other - Past Surgical History Past Surgical History: Yes: AAA Repair, Appendectomy, CABG ([facility]), Tonsillectomy. No: None, AICD, Amputation, Arthrosocopy, AV Fistula/Graft, Bariatric Surgery, Breast Biopsy, Bypass, Carotid Endarterectomy, Cataract Removal, Cholecystectomy, Colectomy, Colonoscopy, Colostomy, Craniotomy, C- Section, Cystectomy, Hernia Repair, Hysterectomy, Ileal Conduit, Ileosotomy, Joint Replacement, Kidney Transplant, Laminectomy, Liver Transplant, Mastectomy , Nephrectomy, Oopherectomy, Orchiectomy, Permanent Pacemaker, Prostatectomy, Splenectomy, Stent, Thoracotomy, TURP, Tubal Ligation, Upper Endoscopy, Valve Replacement, Vasectomy, Vein Stripping/Ligation - Alcohol/Substance Use Hx Alcohol Use: No - Smoking History Smoking history: Unknown if ever smoked Have you smoked in the past 12 months: No Aproximately how many cigarettes per day: 0 - Social History ADL: Support Services History of Recent Travel: No Home Medications - Allergies Allergies/Adverse Reactions: Allergies Allergy/AdvReac Type Severity Reaction Status Date / Time No Known Allergies Allergy Verified 05/25/18 13:10 - Home Medications Home Medications: Ambulatory Orders Brimonidine Tartrate/Timolol [Combigan 0.2%-0.5% Eye Drops] 1 drop OD DAILY 01/13 Atorvastatin Ca [Lipitor] 10 mg NGT HS tablet 04/07/18 Pantoprazole Suspension [Protonix Packets For Oral Suspension -] 40 mg PEG DAILY packet 04/07/18 Amlodipine Besylate [Norvasc -] 10 mg PEG DAILY #30 tablet 04/08/18 Docusate Sodium [Colace -] 100 mg PEG DAILY #60 capsule 04/08/18 Levothyroxine [Synthroid -] 50 mcg PEG DAILY@0600 #0 syr 04/08/18 Metoprolol Tartrate [Lopressor -] 50 mg PEG BID #60 tablet 04/08/18 Albuterol 2.5/Ipratropium 0.5 [Duoneb -] 1 neb IH QID 04/27/18 Guaifenesin 400 mg NGT BID 04/27/18 Scopolamine 1 each TD ASDIR 04/27/18 levETIRAcetam [Keppra Oral Solution -] 500 mg PEG BID 04/27/18 Brimonidine Tartrate [Alphagan 0.2% -] 1 drop OD DAILY drops 05/01/18 Phenytoin Oral Suspension [Dilantin Oral Suspension 100 MG/4 ML] 100 mg GT Q8H 30 Days cup 05/01/18 Tamsulosin HCl [Flomax] 0.4 mg PO DAILY 30 Days #30 cap.er.24h 05/01/18 Physical Exam- Vital Signs: Vital Signs Temperature 97.3 F L 06/01/18 16:30 Pulse Rate 75 06/01/18 16:30 Respiratory Rate 18 06/01/18 16:30 Blood Pressure 164/85 06/01/18 16:30 O2 Sat by Pulse Oximetry (%) 97 05/31/18 21:00 Renal/: Yes: Bladder Distention Labs: CBC, BMP 06/01/18 08:41 06/01/18 08:44 Imaging - Results Cat Scan: Report Reviewed Problem List - Problems (1) Hydronephrosis, left Assessment/Plan: the left hydronephrosis is the result of incomplete bladder emptying. would increase dose of flomax Code(s): N13.30 - UNSPECIFIED HYDRONEPHROSIS
[2018-06-01] MEDS ORDERED: PT OWN MED DRAWER 7, Y5N ONE (22:07)
[2018-06-02] MEDS: LEVOTHYROXINE NA 50 MCG TABLET (FP) PEG SCH (05:41)
--- NOTE | 2018-06-02 08:39 | PN ---
Progress Note (short form) - Note Progress Note: 87 year old man known to me , He has history of seizure following subdural hemato evacuation. It was evacuated twice. Patient also have history of CKD, Stroke, cabg, ibs, peg tube placement. He was admitted to hospital for pneumonia. He seems to be awake today and following simple command, no spntaneous speech Medication : Keppra 500 mg bid and dilantin 100 mg bid NEUROLOGICAL EXAMINATION: He is alert and able to follow command There is no twitching or seizure activity was seen Left isde is moving more than right side pupils are small and left side there is eivdence of old surgery ? glaucoma Ct no ct head done this time ct head schedule for today Assessment : 87 year old male with multiple medical problem had subdural hematoma and has evacuation done by dr guerra twice. He is aphasic as baseline He appears bright and attempting to talk and able to follow simple command Plan: continue keppra and dilantin at same dos e follow up on ct head would follow with primary Thanking you so much Ashwin Stokes MD
[2018-06-02] MEDS: TAMSULOSIN HCL 0.4 MG CAP PO SCH (08:52)
--- NOTE | 2018-06-02 10:02 | PN ---
Progress Note (short form) - Note Progress Note: PULMONARY Somnolent but arousable. No fevers recorded. Vital Signs Period Temp Pulse Resp BP Sys/Michel Pulse Ox Last 24 Hr 97.3 F-98.8 F 66-76 18-20 148-164/72-85 97 Gen: somnolent Heart: RRR Lung: decreased breath sounds at the bases Abd: soft, nontender Ext: no edema CBC, BMP 06/01/18 08:41 06/01/18 08:44 Active Medications Acetaminophen (Tylenol -) 650 mg PO Q6H PRN PRN Reason: FEVER Last Admin: 05/30/18 09:43 Dose: 650 mg Amlodipine Besylate (Norvasc -) 10 mg PEG DAILY [facility] BEDS AT [facility] Last Admin: 06/01/18 11:26 Dose: 10 mg Brimonidine Tartrate (Alphagan 0.2% -) 1 drop OD DAILY [facility] 234 BEDS [facility] Last Admin: 06/01/18 11:29 Dose: 1 drop Potassium Chloride/Sodium Chloride (Ns+20 Meq Kcl -) 20 meq in 1,000 mls @ 75 mls/hr IV ASDIR COUNTS [facility]CLUDE 234 BEDS AT [facility] Last Admin: 06/01/18 17:45 Dose: 75 mls/hr Levetiracetam (Keppra Oral Solution -) 500 mg PEG BID [facility]CLUDE 234 BEDS AT [facility] Last Admin: 06/01/18 21:21 Dose: 500 mg Levothyroxine Sodium (Synthroid -) 50 mcg PEG DAILY@0600 [facility]S [facility]CLUDE 234 BEDS AT [facility] Last Admin: 06/02/18 05:41 Dose: 50 mcg Metoprolol Tartrate (Lopressor -) 50 mg PEG BID [facility]CLUDE 234 BEDS AT [facility] Last Admin: 06/01/18 21:20 Dose: 50 mg Pantoprazole Sodium (Protonix Packets For Oral Suspension -) 40 mg PEG DAILY [facility]CLUDE 234 BEDS AT [facility] Last Admin: 06/01/18 11:26 Dose: 40 mg Phenytoin Sodium (Dilantin Oral Suspension -) 100 mg GT BID [facility]S [facility]CLUDE 234 BEDS AT [facility] Last Admin: 06/01/18 21:21 Dose: 100 mg Tamsulosin HCl (Flomax -) 0.8 mg PO DAILY@0830 [facility]S [facility]CLUDE 234 BEDS AT [facility] Last Admin: 06/02/18 08:52 Dose: 0.8 mg Timolol Maleate (Timoptic 0.5%) 1 drop OD DAILY [facility]CLUDE 234 BEDS AT [facility] Last Admin: 06/01/18 11:28 Dose: 1 drop A/P Pneumonia likely Aspiration Sepsis Acute on Chronic Renal Failure improving h/o Subdural Hematoma Hypothyroidism HTN Dementia - continue antibiotics - replete lytes - o2 to keep SpO2 >90% - aspiration precautions - DVT prophylaxis
[2018-06-02] MEDS ORDERED: PT OWN MED DRAWER 7, Y5N ONE ×3 (10:37→21:22)
[2018-06-02] MEDS: amLODIPine BESYLATE 5 MG TABLET (FP) PEG SCH (10:53)
[2018-06-02] MEDS: PANTOPRAZOLE SOD 40 MG SUSPENSION PACKET PEG SCH (10:53)
[2018-06-02] MEDS: levETIRAcetam 500 MG/5 ML ORAL SOLUTION (UNIT-DOSE CUPS) PEG SCH ×2 (10:53→22:28)
[2018-06-02] MEDS: METOPROLOL TARTRATE 50 MG TABLET (FP) PEG SCH ×2 (10:53→22:28)
[2018-06-02] MEDS: PHENYTOIN 100 MG/4 ML U-D CUP GT SCH ×2 (10:54→22:28)
[2018-06-02] MEDS: TIMOLOL 0.5% OPHTHALMIC SOL 5 ML BOTTLE OD SCH (11:00)
[2018-06-02] MEDS: BRIMONIDINE TARTRATE 0.2% OPHTHALMIC 5 ML BOTTLE OD SCH (11:00)
--- NOTE | 2018-06-02 11:27 | PN ---
Progress Note, Physician History of Present Illness: stable peg in place plan to change it patient awake and alert - Current Medication List Current Medications: Active Medications Acetaminophen (Tylenol -) 650 mg PO Q6H PRN PRN Reason: FEVER Last Admin: 05/30/18 09:43 Dose: 650 mg Amlodipine Besylate (Norvasc -) 10 mg PEG DAILY [facility] Last Admin: 06/02/18 10:53 Dose: 10 mg Brimonidine Tartrate (Alphagan 0.2% -) 1 drop OD DAILY [facility] Last Admin: 06/02/18 11:00 Dose: 1 drop Potassium Chloride/Sodium Chloride (Ns+20 Meq Kcl -) 20 meq in 1,000 mls @ 75 mls/hr IV ASDIR [facility] Last Admin: 06/01/18 17:45 Dose: 75 mls/hr Levetiracetam (Keppra Oral Solution -) 500 mg PEG BID [facility] Last Admin: 06/02/18 10:53 Dose: 500 mg Levothyroxine Sodium (Synthroid -) 50 mcg PEG DAILY@0600 [facility] Last Admin: 06/02/18 05:41 Dose: 50 mcg Metoprolol Tartrate (Lopressor -) 50 mg PEG BID [facility] Last Admin: 06/02/18 10:53 Dose: 50 mg Pantoprazole Sodium (Protonix Packets For Oral Suspension -) 40 mg PEG DAILY [facility] Last Admin: 06/02/18 10:53 Dose: 40 mg Phenytoin Sodium (Dilantin Oral Suspension -) 100 mg GT BID [facility] Last Admin: 06/02/18 10:54 Dose: 100 mg Tamsulosin HCl (Flomax -) 0.8 mg PO DAILY@0830 [facility] Last Admin: 06/02/18 08:52 Dose: 0.8 mg Timolol Maleate (Timoptic 0.5%) 1 drop OD DAILY [facility] Last Admin: 06/02/18 11:00 Dose: 1 drop - Objective Vital Signs: Vital Signs Temperature 98.4 F 06/02/18 07:07 Pulse Rate 76 06/02/18 07:07 Respiratory Rate 20 06/02/18 07:07 Blood Pressure 152/72 06/02/18 07:07 O2 Sat by Pulse Oximetry (%) 97 06/01/18 21:00 Constitutional: Yes: No Distress, Calm Cardiovascular: Yes: Regular Rate and Rhythm Respiratory: Yes: Regular, Poor Air Entry Gastrointestinal: Yes: Normal Bowel Sounds, Soft, Other (peg) Musculoskeletal: Yes: WNL Extremities: Yes: WNL Neurological: Yes: Alert, Other Psychiatric: Yes: Other Labs: CBC, BMP 06/01/18 08:41 06/01/18 08:44 INR, PTT INR 1.27 (0.83-1.09) H 05/25/18 05:25 Assessment/Plan Problem List - Problems (1) Sepsis Code(s): A41.9 - SEPSIS, UNSPECIFIED ORGANISM (2) MALINDA (acute kidney injury) Code(s): N17.9 - ACUTE KIDNEY FAILURE, UNSPECIFIED (3) Aneurysm of infrarenal abdominal aorta Code(s): I71.4 - ABDOMINAL AORTIC ANEURYSM, WITHOUT RUPTURE (4) CAD (coronary artery disease) Code(s): I25.10 - ATHSCL HEART DISEASE OF [place] CORONARY ARTERY W/O ANG PCTRS Qualifiers: [place] vs. transplanted heart: [place] heart Associated angina: without angina (5) Cerebrovascular accident (CVA) Code(s): I63.9 - CEREBRAL INFARCTION, UNSPECIFIED (6) HTN (hypertension) Code(s): I10 - ESSENTIAL (PRIMARY) HYPERTENSION Qualifiers: Hypertension type: essential hypertension Qualified Code(s): I10 - Essential (primary) hypertension (7) History of endovascular stent graft for abdominal aortic aneurysm (AAA) Code(s): Z95.828 - PRESENCE OF OTHER VASCULAR IMPLANTS AND GRAFTS (8) Hyperlipidemia Code(s): E78.5 - HYPERLIPIDEMIA, UNSPECIFIED Qualifiers: Hyperlipidemia type: pure hypercholesterolemia Qualified Code(s): E78.00 - Pure hypercholesterolemia, unspecified; E78.0 - Pure hypercholesterolemia (9) Pneumonia Code(s): J18.9 - PNEUMONIA, UNSPECIFIED ORGANISM Qualifiers: Pneumonia type: aspiration pneumonia (10) Respiratory failure Code(s): J96.90 - RESPIRATORY FAILURE, UNSP, UNSP W HYPOXIA OR HYPERCAPNIA (11) S/P CABG (coronary artery bypass graft) Code(s): Z95.1 - PRESENCE OF AORTOCORONARY BYPASS GRAFT (12) Functional quadriplegia Code(s): R53.2 - FUNCTIONAL QUADRIPLEGIA 13 gm positive bacteria 14 uti Assessment/Plan 87 y.o. male with PMH of CVA, dysphagia s/p peg placement, CAD s/p CABG, AAA s/ p repair, seizure d.o. , HTN, and hypothyroidism presenting for vomiting of peg feeds Sepsis PNA - likely aspiration Respiratory distress MALINDA Lt hydronephrosis Fever CAD s/p CABG AAA repair CVA with dysphagia plan if patient tolerating tube feed then stop iv fluids rest continue current mgmt
--- NOTE | 2018-06-02 12:24 | PN ---
Physical Exam: SUBJECTIVE: Patient seen and examined at the bedside. arousable, lethargic at times. OBJECTIVE: npo for G/J tube exchange tomorrow repeat labs pending head ct pending Vital Signs Period Temp Pulse Resp BP Sys/Michel Pulse Ox Last 24 Hr 97.3 F-98.8 F 66-76 18-20 148-164/72-85 97 GENERAL: The patient is awake, lethargic at times. attempts to say his name, but speech is incomprehensible. appears comfortable at rest. cachectic, protruding clavicles, easily palpable chest bones HEAD: Normal with no signs of trauma. EYES: PERRL, extraocular movements intact, sclera anicteric, conjunctiva clear. No ptosis. ENT: Ears normal, nares patent, oropharynx clear without exudates, moist mucous membranes. NECK: Trachea midline, full range of motion, supple. LUNGS: diminished bilaterally, breathing less labored. HEART: Regular rate and rhythm ABDOMEN: Soft, nontender, nondistended, normoactive bowel sounds, +g tube EXTREMITIES: 2+ pulses, warm, well-perfused, no edema. NEUROLOGICAL: garbled speech, facial symmetry PSYCH: calm Active Medications Generic Name Dose Route Start Last Admin Trade Name Freq PRN Reason Stop Dose Admin Acetaminophen 650 mg 05/25/18 12:01 05/30/18 09:43 Tylenol - PO 650 mg Q6H PRN Administration FEVER Amlodipine Besylate 10 mg 05/29/18 15:45 06/02/18 10:53 Norvasc - PEG 10 mg DAILY KRISTY Administration Brimonidine Tartrate 1 drop 05/25/18 12:45 06/02/18 11:00 Alphagan 0.2% - OD 1 drop DAILY KRISTY Administration Potassium Chloride/Sodium Chloride 20 meq in 1,000 mls @ 75 mls/hr 06/01/18 17 :45 06/01/18 17:45 Ns+20 Meq Kcl - IV 75 mls/hr ASDIR KRISTY Administration Levetiracetam 500 mg 05/25/18 12:45 06/02/18 10:53 Keppra Oral Solution - PEG 500 mg BID KRISTY Administration Levothyroxine Sodium 50 mcg 05/25/18 12:45 06/02/18 05:41 Synthroid - PEG 50 mcg DAILY@0600 KRISTY Administration Metoprolol Tartrate 50 mg 05/29/18 22:00 06/02/18 10:53 Lopressor - PEG 50 mg BID KRISYT Administration Pantoprazole Sodium 40 mg 05/25/18 12:45 06/02/18 10:53 Protonix Packets For Oral Suspension - PEG 40 mg DAILY KRISTY Administration Phenytoin Sodium 100 mg 05/26/18 22:00 06/02/18 10:54 Dilantin Oral Suspension - GT 100 mg BID KRISTY Administration Tamsulosin HCl 0.8 mg 06/01/18 17:54 06/02/18 08:52 Flomax - PO 0.8 mg DAILY@0830 KRITSY Administration Timolol Maleate 1 drop 05/25/18 12:15 06/02/18 11:00 Timoptic 0.5% OD 1 drop DAILY KRISTY Administration ASSESSMENT/PLAN: Patient is an 87 year-old male with a past medical history as noted below. He is from [facility] and comes to [facility] on 05/25/2018 for severe sepsis secondary to aspiration pneumonia and MALINDA. problem list: Severe sepsis secondary to pneumonia UTI Acute on chronic kidney disease Azotemia Hypokalemia Hypertension Seizure disorder Chronic respiratory failure BPH Hypothyroidism Glaucoma Cachexia MALINDA ID/Pulm. Sepsis 2/2 aspiration pneumonia. sepsis resolved. wbc stable, afebrile, vitals stable. Treated with IV Zosyn x 7 days during hospitalization. Chronic respiratory failure: on 2 liters of nasal cannula, continously lung sounds improving. given sterioids x 1 on 05/30/18 Maintain oxygen saturations above 90% on 2 liters switch of feeding tube from g tube to G/J anticipated to minimize the risk of aspiration. on 06/03/18. NPO at midnight. consent to be obtained by IR chest xray with right base infiltrates Pulm following +Blood culture (staph epi), repeat with no growth to date Please keep HOB no lower than 45 degrees as it minimizes the risk of aspiration. ID following : UTI: + ua, elevated wbc, + leuks. BPH. on flomax left hydronephrosis seen on CT imaging. urology saw patient and increased flomax. Patient to be discharged with sotelo catheter. Renal: Acute on chronic kidney disease/Azotemia left hydro on abd ct. creat improving. Hypokalemia. repleted. awaiting today's labs monitor daily bmps card: Hypertension: controlled. on amlodipine, metoprolol. Neuro: Seizure disorder. hx of subdural hematoma, 2 evacuations. followed by neuro. On dilantin 100mg bid. head ct for today as per neuro. Endocrine: Hypothyroidism. on Levothyroxine fen on ns/20meq @ 75 hypokalemia, repleted. repeat today osmolite tube feeds 24 hours continuous prophy protonix disposition: molst form signed and in chart. discharge back to [facility] after G/ J tube placement. dnr Visit type - Emergency Visit Emergency Visit: Yes ED Registration Date: 05/25/18 Care time: The patient presented to the Emergency Department on the above date and was hospitalized for further evaluation of their emergent condition. - New Patient This patient is new to me today: No - Critical Care Critical Care patient: No - Discharge Referral Referred to [facility] Med P.C.: No
[2018-06-02 18:31] LABS: BASO % 0.4 % (0-2.0); EOS % 14.6 % (0-4.5); HEMOGLOBIN 9.2 GM/dL (11.7-16.9); LYMPH % 15.8 % (8-40); MCH 31.4 pg (25.7-33.7); MCHC 35.3 g/dl (32.0-35.9); MEAN CELL VOLUME 88.9 fl (80-96); NEUT % 61.2 % (42.8-82.8); PLATELET COUNT 330 K/MM3 (134-434); RBC 2.93 M/mm3 (4.00-5.60); RDW 14.9 % (11.9-15.9); WHITE BLOOD COUNT 8.2 K/mm3 (4.0-10.0)
[2018-06-02 19:02] LABS: ALBUMIN 2.1 g/dl (3.4-5.0); ALK PHOS 124 U/L (45-117); ANION GAP 8 MMOL/L (8-16); BILIRUBIN,TOTAL 0.2 mg/dL (0.2-1); BLOOD UREA NITROGEN 20 mg/dL (7-18); CHLORIDE 114 mmol/L (98-107); CO2 24 mmol/L (21-32); CREATININE 0.9 mg/dL (0.55-1.3); GLUCOSE,RANDOM 100 mg/dL (74-106); POTASSIUM 3.4 mmol/L (3.5-5.1); SGOT/AST 38 U/L (15-37); SGPT/ALT 38 U/L (13-61); SODIUM 145 mmol/L (136-145); TOT PROT 5.4 g/dl (6.4-8.2)
[2018-06-02] MEDS ORDERED: MAGNESIUM SULF 50% (8.12 MEQ/2 ML-1 GM VIAL) IVPB ONE (19:04)
[2018-06-02] MEDS ORDERED: POTASSIUM CHLORIDE ORAL LIQUID 20 MEQ/15 ML PO ONE (21:56)
[2018-06-02] MEDS: ACETAMINOPHEN 325 MG TABLET (FP) PO PRN (22:37)
[2018-06-03] MEDS: SODIUM CHLORIDE 0.9%/KCL 20 MEQ/1,000 ML INFUS.BAG IV SCH (00:03)
[2018-06-03] MEDS: LEVOTHYROXINE NA 50 MCG TABLET (FP) PEG SCH (06:18)
[2018-06-03 08:50] LABS: BASO % 0.4 % (0-2.0); EOS % 15.2 % (0-4.5); HEMATOCRIT 24.7 % (35.4-49); HEMOGLOBIN 8.8 GM/dL (11.7-16.9); MCH 31.9 pg (25.7-33.7); MCHC 35.6 g/dl (32.0-35.9); MEAN CELL VOLUME 89.4 fl (80-96); MEAN PLT VOLUME 6.8 fl (7.5-11.1); MONO % 8.9 % (3.8-10.2); NEUT % 58.5 % (42.8-82.8); PLATELET COUNT 334 K/MM3 (134-434); RBC 2.77 M/mm3 (4.00-5.60); RDW 14.8 % (11.9-15.9); WHITE BLOOD COUNT 10.2 K/mm3 (4.0-10.0)
[2018-06-03] MEDS: PIPERACILLIN/TAZOB 2.25 GM 2.25 GM in DEXTROSE 5%-WATER - 50 ML IVPB SCH (09:14)
[2018-06-03] MEDS: KCL 10 MEQ IVPB 10 MEQ/100 ML INFUS.BAG IVPB SCH (09:14)
[2018-06-03 09:27] LABS: ALK PHOS 122 U/L (45-117); ANION GAP 8 MMOL/L (8-16); BILIRUBIN,TOTAL 0.3 mg/dL (0.2-1); BLOOD UREA NITROGEN 18 mg/dL (7-18); CALCIUM 7.1 mg/dL (8.5-10.1); CHLORIDE 114 mmol/L (98-107); CO2 23 mmol/L (21-32); CREATININE 0.9 mg/dL (0.55-1.3); GLUCOSE,RANDOM 93 mg/dL (74-106); MAGNESIUM 1.8 mg/dL (1.8-2.4); POTASSIUM 3.7 mmol/L (3.5-5.1); SGOT/AST 34 U/L (15-37); SGPT/ALT 34 U/L (13-61); SODIUM 145 mmol/L (136-145); TOT PROT 5.3 g/dl (6.4-8.2)
--- NOTE | 2018-06-03 09:28 | PN ---
Progress Note (short form) - Note Progress Note: PULMONARY Somnolent but arousable. Not speaking. No fevers recorded. Vital Signs Period Temp Pulse Resp BP Sys/Michel Pulse Ox Last 24 Hr 97.7 F-99.2 F 73-87 18-22 132-156/66-89 96 Gen: mildly tachypneic at rest Heart: RRR Lung: decreased breath sounds at the bases Abd: soft, nontender Ext: no edema CBC, BMP 06/03/18 08:30 06/03/18 08:30 Active Medications Acetaminophen (Tylenol -) 650 mg PO Q6H PRN PRN Reason: FEVER Last Admin: 06/02/18 22:37 Dose: 650 mg Amlodipine Besylate (Norvasc -) 10 mg PEG DAILY [facility] Last Admin: 06/02/18 10:53 Dose: 10 mg Brimonidine Tartrate (Alphagan 0.2% -) 1 drop OD DAILY [facility] Last Admin: 06/02/18 11:00 Dose: 1 drop Potassium Chloride/Sodium Chloride (Ns+20 Meq Kcl -) 20 meq in 1,000 mls @ 75 mls/hr IV ASDIR [facility] Last Admin: 06/03/18 00:03 Dose: 75 mls/hr Levetiracetam (Keppra Oral Solution -) 500 mg PEG BID [facility] Last Admin: 06/02/18 22:28 Dose: 500 mg Levothyroxine Sodium (Synthroid -) 50 mcg PEG DAILY@0600 [facility] Last Admin: 06/03/18 06:18 Dose: 50 mcg Metoprolol Tartrate (Lopressor -) 50 mg PEG BID [facility] Last Admin: 06/02/18 22:28 Dose: 50 mg Pantoprazole Sodium (Protonix Packets For Oral Suspension -) 40 mg PEG DAILY [facility] Last Admin: 06/02/18 10:53 Dose: 40 mg Phenytoin Sodium (Dilantin Oral Suspension -) 100 mg GT BID [facility] Last Admin: 06/02/18 22:28 Dose: 100 mg Tamsulosin HCl (Flomax -) 0.8 mg PO DAILY@0830 [facility] Last Admin: 06/02/18 08:52 Dose: 0.8 mg Timolol Maleate (Timoptic 0.5%) 1 drop OD DAILY [facility] Last Admin: 06/02/18 11:00 Dose: 1 drop A/P Pneumonia likely Aspiration Sepsis Acute on Chronic Renal Failure improving h/o Subdural Hematoma Hypothyroidism HTN Dementia - continue antibiotics - replete lytes - o2 to keep SpO2 >90% - aspiration precautions - for G-J tube exchange - DVT prophylaxis
--- NOTE | 2018-06-03 11:19 | PN ---
Progress Note (short form) - Note Progress Note: 87 year old man known to me , He has history of seizure following subdural hemato evacuation. It was evacuated twice. Patient also have history of CKD, Stroke, cabg, ibs, peg tube placement. He was admitted to hospital for pneumonia. He has repeat ct head and is it unchanged and he is sleepy today. Medication : Keppra 500 mg bid and dilantin 100 mg bid NEUROLOGICAL EXAMINATION: He is quite sleepy this morning There is no twitching or seizure activity was seen Left isde is moving more than right side pupils are small and left side there is eivdence of old surgery ? glaucoma repeat ct head done on June 02 was unchanged and looks better Assessment : 87 year old male with multiple medical problem had subdural hematoma and has evacuation done by dr guerra twice. He is aphasic as baseline He is sleepy today and schedule for g tube revision. Plan: continue keppra and dilantin at same dose for now would follow with primary Thanking you so much Ashwin Stokes MD
--- NOTE | 2018-06-03 11:31 | PN ---
Progress Note, Physician History of Present Illness: stable no new issues j tube - Current Medication List Current Medications: Active Medications Acetaminophen (Tylenol -) 650 mg PO Q6H PRN PRN Reason: FEVER Last Admin: 06/02/18 22:37 Dose: 650 mg Amlodipine Besylate (Norvasc -) 10 mg PEG DAILY [facility] Last Admin: 06/02/18 10:53 Dose: 10 mg Brimonidine Tartrate (Alphagan 0.2% -) 1 drop OD DAILY [facility] Last Admin: 06/02/18 11:00 Dose: 1 drop Potassium Chloride/Sodium Chloride (Ns+20 Meq Kcl -) 20 meq in 1,000 mls @ 75 mls/hr IV ASDIR [facility] Last Admin: 06/03/18 00:03 Dose: 75 mls/hr Levetiracetam (Keppra Oral Solution -) 500 mg PEG BID [facility] Last Admin: 06/02/18 22:28 Dose: 500 mg Levothyroxine Sodium (Synthroid -) 50 mcg PEG DAILY@0600 [facility] Last Admin: 06/03/18 06:18 Dose: 50 mcg Metoprolol Tartrate (Lopressor -) 50 mg PEG BID [facility] Last Admin: 06/02/18 22:28 Dose: 50 mg Pantoprazole Sodium (Protonix Packets For Oral Suspension -) 40 mg PEG DAILY [facility] Last Admin: 06/02/18 10:53 Dose: 40 mg Phenytoin Sodium (Dilantin Oral Suspension -) 100 mg GT BID [facility] Last Admin: 06/02/18 22:28 Dose: 100 mg Tamsulosin HCl (Flomax -) 0.8 mg PO DAILY@0830 [facility] Last Admin: 06/02/18 08:52 Dose: 0.8 mg Timolol Maleate (Timoptic 0.5%) 1 drop OD DAILY [facility] Last Admin: 06/02/18 11:00 Dose: 1 drop - Objective Vital Signs: Vital Signs Temperature 98.2 F 06/03/18 07:01 Pulse Rate 87 06/03/18 07:01 Respiratory Rate 20 06/03/18 07:01 Blood Pressure 156/73 06/03/18 07:01 O2 Sat by Pulse Oximetry (%) 96 06/02/18 22:00 Constitutional: Yes: No Distress, Calm Cardiovascular: Yes: Regular Rate and Rhythm Respiratory: Yes: Regular, CTA Bilaterally Gastrointestinal: Yes: Normal Bowel Sounds, Soft, Other Musculoskeletal: Yes: WNL Extremities: Yes: WNL Neurological: Yes: Alert, Other Labs: CBC, BMP 06/03/18 08:30 06/03/18 08:30 INR, PTT INR 1.27 (0.83-1.09) H 05/25/18 05:25 Assessment/Plan Problem List - Problems (1) Sepsis Code(s): A41.9 - SEPSIS, UNSPECIFIED ORGANISM (2) MALINDA (acute kidney injury) Code(s): N17.9 - ACUTE KIDNEY FAILURE, UNSPECIFIED (3) Aneurysm of infrarenal abdominal aorta Code(s): I71.4 - ABDOMINAL AORTIC ANEURYSM, WITHOUT RUPTURE (4) CAD (coronary artery disease) Code(s): I25.10 - ATHSCL HEART DISEASE OF [place] CORONARY ARTERY W/O ANG PCTRS Qualifiers: [place] vs. transplanted heart: [place] heart Associated angina: without angina (5) Cerebrovascular accident (CVA) Code(s): I63.9 - CEREBRAL INFARCTION, UNSPECIFIED (6) HTN (hypertension) Code(s): I10 - ESSENTIAL (PRIMARY) HYPERTENSION Qualifiers: Hypertension type: essential hypertension Qualified Code(s): I10 - Essential (primary) hypertension (7) History of endovascular stent graft for abdominal aortic aneurysm (AAA) Code(s): Z95.828 - PRESENCE OF OTHER VASCULAR IMPLANTS AND GRAFTS (8) Hyperlipidemia Code(s): E78.5 - HYPERLIPIDEMIA, UNSPECIFIED Qualifiers: Hyperlipidemia type: pure hypercholesterolemia Qualified Code(s): E78.00 - Pure hypercholesterolemia, unspecified; E78.0 - Pure hypercholesterolemia (9) Pneumonia Code(s): J18.9 - PNEUMONIA, UNSPECIFIED ORGANISM Qualifiers: Pneumonia type: aspiration pneumonia (10) Respiratory failure Code(s): J96.90 - RESPIRATORY FAILURE, UNSP, UNSP W HYPOXIA OR HYPERCAPNIA (11) S/P CABG (coronary artery bypass graft) Code(s): Z95.1 - PRESENCE OF AORTOCORONARY BYPASS GRAFT (12) Functional quadriplegia Code(s): R53.2 - FUNCTIONAL QUADRIPLEGIA 13 gm positive bacteria 14 uti Assessment/Plan 87 y.o. male with PMH of CVA, dysphagia s/p peg placement, CAD s/p CABG, AAA s/ p repair, seizure d.o. , HTN, and hypothyroidism presenting for vomiting of peg feeds Sepsis PNA - likely aspiration Respiratory distress MALINDA Lt hydronephrosis Fever CAD s/p CABG AAA repair CVA with dysphagia plan plan for j tube rest continue current mgmt patient stab;e
--- NOTE | 2018-06-03 12:19 | DS ---
Physical Exam: SUBJECTIVE: Patient seen and examined; no events overnight. Being DC'd back to his NH ([facility]) post IR tube placement. Meds reconciled. No events overnight and hemodynamics stable. He still has a sotelo in and I confirmed with nursing he can do a voiding trial at [facility]. 10 sys ROS couldn't be reliably completed OBJECTIVE: Vital Signs Period Temp Pulse Resp BP Sys/Michel Pulse Ox Last 24 Hr 97.7 F-99.2 F 73-87 18-22 144-156/66-89 96 PHYSICAL EXAM GENERAL: The patient is awake, alert, AAOx1 but poor speech pattern makes it hard to discuss HEAD: Normal with no signs of trauma. EYES: PERRL, extraocular movements intact, sclera anicteric ENT: Ears normal, nares patent, oropharynx clear without exudates NECK: Trachea midline, full range of motion, supple. LUNGS: Breath sounds equal, clear to auscultation bilaterally HEART: Regular rate and rhythm, S1, S2 without murmur, rub or gallop. ABDOMEN: Soft, nontender, nondistended, normoactive bowel sounds, no guarding, no rebound EXTREMITIES: 2+ pulses, warm, well-perfused, no edema. NEUROLOGICAL: Cranial nerves II through XII grossly intact. Poor speech. Aparently at neuro baseline; appears sleepy PSYCH: Normal mood, normal affect. SKIN: Warm, dry, normal turgor, no rashes or lesions noted. LABS Laboratory Results - last 24 hr 06/02/18 06/02/18 06/02/18 17:35 17:35 17:35 WBC 8.2 RBC 2.93 L Hgb 9.2 L Hct 26.0 L MCV 88.9 MCH 31.4 MCHC 35.3 RDW 14.9 Plt Count 330 MPV 7.0 L Absolute Neuts (auto) 5.0 Neutrophils % 61.2 Lymphocytes % 15.8 Monocytes % 8.0 Eosinophils % 14.6 H Basophils % 0.4 Nucleated RBC % 0 Sodium 145 Potassium 3.4 L Chloride 114 H Carbon Dioxide 24 Anion Gap 8 BUN 20 H Creatinine 0.9 Creat Clearance w eGFR > 60 Random Glucose 100 Calcium 7.0 L Magnesium 1.4 L Total Bilirubin 0.2 AST 38 H ALT 38 Alkaline Phosphatase 124 H Total Protein 5.4 L Albumin 2.1 L 06/03/18 06/03/18 08:30 08:30 WBC 10.2 H RBC 2.77 L Hgb 8.8 L Hct 24.7 L MCV 89.4 MCH 31.9 MCHC 35.6 RDW 14.8 Plt Count 334 MPV 6.8 L Absolute Neuts (auto) 5.9 Neutrophils % 58.5 Lymphocytes % 17.0 Monocytes % 8.9 Eosinophils % 15.2 H Basophils % 0.4 Nucleated RBC % 0 Sodium 145 Potassium 3.7 Chloride 114 H Carbon Dioxide 23 Anion Gap 8 BUN 18 Creatinine 0.9 Creat Clearance w eGFR > 60 Random Glucose 93 Calcium 7.1 L Magnesium 1.8 Total Bilirubin 0.3 AST 34 ALT 34 Alkaline Phosphatase 122 H Total Protein 5.3 L Albumin 2.0 L HOSPITAL COURSE: Date of Admission:05/25/18 Date of Discharge: 06/03/18 Minutes to complete discharge: 45 Discharge Summary Reason For Visit: SEPSIS Current Active Problems Hydronephrosis, left (Acute) Sepsis (Acute) MALINDA Sepsis 2/2 aspiration PNA SDH (unchanged) Hospital Course: Patient is an 87 year-old male with a past medical history as noted below. He is from [facility] and comes to [facility] on 05/25/2018 for severe sepsis secondary to aspiration pneumonia and MALINDA. problem list: Severe sepsis secondary to pneumonia UTI Acute on chronic kidney disease Azotemia Hypokalemia Hypertension Seizure disorder Chronic respiratory failure BPH Hypothyroidism Glaucoma Cachexia MALINDA ID/Pulm. Sepsis 2/2 aspiration pneumonia. sepsis resolved. wbc stable, afebrile, vitals stable. Treated with IV Zosyn x 7 days during hospitalization. Chronic respiratory failure: on 2 liters of nasal cannula Maintain oxygen saturations above 90% on 2 liters switch of feeding tube from g tube to G/J anticipated to minimize the risk of aspiration; returning to [facility] post procedure Please keep HOB no lower than 45 degrees as it minimizes the risk of aspiration. Followup with PCP and ID; PCP 3-5 days, ID 2-4 weeks : BPH: Flomax increased to 0.8 due to L-hydro per urology; followup US 1 week OP and voiding trial within 24 hours of transfer to [facility]. FU with as directed. left hydronephrosis seen on CT imaging. urology saw patient and increased flomax. [place] that this was due to Patient to be discharged with sotelo catheter. Renal: Acute on chronic kidney disease/Azotemia resolved with hydration BMP in 3 days; forward results to PCP Hypokalemia. resolved post repletion card: Hypertension: controlled. on amlodipine, metoprolol. CAD: Continue home meds with avoidance of anticoag given SDH Neuro: SDH and resulting seizures Seizure disorder. hx of subdural hematoma, 2 evacuations. Seen by neurology here. On dilantin 100mg bid and keppra BID; no new changes and discharging on current regimine. Endocrine: Hypothyroidism. on Levothyroxine. Followup OP TSH disposition: molst form signed and in chart. discharge back to [facility] after G/ J tube placement. DNR TO FOLLOW: -voiding trial -Repeat Renal US -Repeat BMP 3 days Condition: Fair - Instructions Diet, Activity, Other Instructions: Resume prior feed schedule without changes Resume prior level of activity Aspiration precautions to be done around the clock Please complete voiding trial within 24 hours of arrival at [facility] Followup with: -ID 2 weeks -PCP 3-5 days - 2-4 weeks -Neurology 2-3 weeks Referrals: Laura Yoder MD [Primary Care Provider] - Disposition: TRANSFER ACUTE CARE/OTHER HOSP - Home Medications Comprehensive Discharge Medication List: Ambulatory Orders Brimonidine Tartrate/Timolol [Combigan 0.2%-0.5% Eye Drops] 1 drop OD DAILY 01/13 Atorvastatin Ca [Lipitor] 10 mg NGT HS tablet 04/07/18 Pantoprazole Suspension [Protonix Packets For Oral Suspension -] 40 mg PEG DAILY packet 04/07/18 Amlodipine Besylate [Norvasc -] 10 mg PEG DAILY #30 tablet 04/08/18 Docusate Sodium [Colace -] 100 mg PEG DAILY #60 capsule 04/08/18 Levothyroxine [Synthroid -] 50 mcg PEG DAILY@0600 #0 syr 04/08/18 Metoprolol Tartrate [Lopressor -] 50 mg PEG BID #60 tablet 04/08/18 Albuterol 2.5/Ipratropium 0.5 [Duoneb -] 1 neb IH QID 04/27/18 Guaifenesin 400 mg NGT BID 04/27/18 Scopolamine 1 each TD ASDIR 04/27/18 levETIRAcetam [Keppra Oral Solution -] 500 mg PEG BID 04/27/18 Brimonidine Tartrate [Alphagan 0.2% -] 1 drop OD DAILY drops 05/01/18 Acetaminophen [Tylenol .Regular Strength -] 650 mg PO Q6H PRN tablet 06/03/18 Phenytoin Oral Suspension [Dilantin Oral Suspension 100 MG/4 ML] 100 mg GT BID cup 06/03/18 Tamsulosin HCl [Flomax -] 0.8 mg PO DAILY@0830 #30 cap.er.24h 06/03/18 This patient is new to me today: Yes Date on this admission: 06/03/18 Emergency Visit: No Critical Care patient: No - Discharge Referral Referred to [facility] No
[2018-06-03] MEDS: TAMSULOSIN HCL 0.4 MG CAP PO SCH (13:42)
[2018-06-03] MEDS ORDERED: PT OWN MED DRAWER 7, Y5N ONE (14:12)
[2018-06-03] MEDS: PANTOPRAZOLE SOD 40 MG SUSPENSION PACKET PEG SCH (14:18)
[2018-06-03] MEDS: ACETAMINOPHEN 325 MG TABLET (FP) PO PRN (14:18)
[2018-06-03] MEDS: METOPROLOL TARTRATE 50 MG TABLET (FP) PEG SCH (14:19)
[2018-06-03] MEDS: amLODIPine BESYLATE 5 MG TABLET (FP) PEG SCH (14:19)
[2018-06-03] MEDS: PHENYTOIN 100 MG/4 ML U-D CUP GT SCH (14:20)
[2018-06-03] MEDS: BRIMONIDINE TARTRATE 0.2% OPHTHALMIC 5 ML BOTTLE OD SCH (14:20)
[2018-06-03] MEDS: levETIRAcetam 500 MG/5 ML ORAL SOLUTION (UNIT-DOSE CUPS) PEG SCH (14:20)
[2018-06-03] MEDS: TIMOLOL 0.5% OPHTHALMIC SOL 5 ML BOTTLE OD SCH (14:21)
[2018-06-03 17:51] VITALS: BP 133/69; PULSE 57; TEMP 97.5
[2018-06-03] MEDS ORDERED: DOXAZOSIN MESYLATE 4 MG TABLET PO SCH (22:00)
== END 2018-06-03 18:24 | DRG 871 ==
LOC: JER 04:23 → JERBED 11:04 → J8W 12:18
PROVIDERS: ADMIT Internal Medicine; ATTEND Internal Medicine
DX: A41.9 Sepsis, unspecified organism (principal); J69.0 Pneumonitis due to inhalation of food and vomit; R53.2 Functional quadriplegia; J96.10 Chronic respiratory failure, unspecified whether with hypoxia or hypercapnia; N13.30 Unspecified hydronephrosis; N17.9 Acute kidney failure, unspecified; R64 Cachexia; N39.0 Urinary tract infection, site not specified; I25.10 Atherosclerotic heart disease of native coronary artery without angina pectoris; Z95.1 Presence of aortocoronary bypass graft; I12.9 Hypertensive chronic kidney disease with stage 1 through stage 4 chronic kidney disease, or unspecified chronic kidney disease; N18.9 Chronic kidney disease, unspecified; G40.909 Epilepsy, unspecified, not intractable, without status epilepticus; N40.0 Benign prostatic hyperplasia without lower urinary tract symptoms; E03.9 Hypothyroidism, unspecified; H40.9 Unspecified glaucoma; Z68.20 Body mass index [BMI] 20.0-20.9, adult; E87.6 Hypokalemia; E78.5 Hyperlipidemia, unspecified; I69.391 Dysphagia following cerebral infarction; R13.10 Dysphagia, unspecified; F03.90 Unspecified dementia, unspecified severity, without behavioral disturbance, psychotic disturbance, mood disturbance, and anxiety
CPT/HCPCS: 36415; 49440; 70450-TC; 71045-TC-FY; 73110-TC-RT-FY; 74176-TC; 80048; 80053; 81003; 81015; 82803; 83605; 83690; 83735; 84100; 84132; 84484; 85025; 85027; 85610; 85730; 87040; 87086; 87186; 87804; 93005; 93010; 94640; 99285-25; C1769; J0131; J1644; J7030

== ENCOUNTER 2018-06-12 12:45 | Inpatient (IN) | payer OTHER, BC ==
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
[2018-06-12 16:16] LABS: BASO % 0.9 % (0-2.0); EOS % 11.5 % (0-4.5); HEMATOCRIT 26.2 % (35.4-49); HEMOGLOBIN 9.2 GM/dL (11.7-16.9); LYMPH % 16.2 % (8-40); MCH 31.5 pg (25.7-33.7); MCHC 35.1 g/dl (32.0-35.9); MEAN CELL VOLUME 89.7 fl (80-96); MEAN PLT VOLUME 6.7 fl (7.5-11.1); MONO % 15.5 % (3.8-10.2); NEUT % 55.9 % (42.8-82.8); PLATELET COUNT 370 K/MM3 (134-434); RBC 2.92 M/mm3 (4.00-5.60); RDW 16.4 % (11.9-15.9); WHITE BLOOD COUNT 9.5 K/mm3 (4.0-10.0)
[2018-06-12 17:42] LABS: ALBUMIN 2.7 g/dl (3.4-5.0); ALK PHOS 166 U/L (45-117); ANION GAP 9 MMOL/L (8-16); BILIRUBIN,TOTAL 0.4 mg/dL (0.2-1); BLOOD UREA NITROGEN 26 mg/dL (7-18); CALCIUM 8.4 mg/dL (8.5-10.1); CHLORIDE 102 mmol/L (98-107); CO2 25 mmol/L (21-32); CREATININE 1.3 mg/dL (0.55-1.3); GLUCOSE,RANDOM 89 mg/dL (74-106); POTASSIUM 3.8 mmol/L (3.5-5.1); SGOT/AST 27 U/L (15-37); SGPT/ALT 23 U/L (13-61); SODIUM 137 mmol/L (136-145); TOT PROT 6.3 g/dl (6.4-8.2)
[2018-06-12] MEDS ORDERED: LIDOCAINE HCL 2% JELLY 10 ML CARTRIDGE ONE (18:29)
[2018-06-12] MEDS ORDERED: CEFTRIAXONE 1 GM in DEXTROSE 5%-WATER - 100 ML IVPB ONE (20:26)
[2018-06-12] MEDS ORDERED: SODIUM CHLORIDE 0.9% 1000 ML INFUS.BAG IV ONE (20:27)
[2018-06-12 20:38] LABS: URINE APPEARANCE CLOUDY; URINE BILIRUBIN NEGATIVE (<2.0 mg/dL); URINE COLOR YELLOW; URINE GLUCOSE (UA) NEGATIVE (NEGATIVE); URINE KETONE NEGATIVE (NEGATIVE); URINE LEUK ESTERASE 3+ (NEGATIVE); URINE NITRITE NEGATIVE (NEGATIVE); URINE PROTEIN 2+ (NEGATIVE); URINE UROBILINOGEN NEGATIVE mg/dL (0.2-1.0)
[2018-06-12 20:45] LABS: URINE BACTERIA RARE /hpf (NONE SEEN); URINE MUCUS RARE
[2018-06-12] MEDS ORDERED: ACETAMINOPHEN 1000 MG/100 ML VIAL (NON FORMULARY) IVPB ONE (20:49)
[2018-06-12] MEDS ORDERED: ACETAMINOPHEN INJECTION 100 ML IVPB ONE (20:51)
[2018-06-12] MEDS ORDERED: CEFTRIAXONE 1 GM/50 ML BAG ONE (20:51)
[2018-06-12] MEDS ORDERED: VANCOMYCIN 1,000 MG in DEXTROSE 5%-WATER - 250 ML IVPB ONE (20:55)
[2018-06-12] MEDS ORDERED: PIPERACILLIN/TAZOB 4.5 GM 4.5 GM in DEXTROSE 5%-WATER 100 ML IVPB ONE (20:55)
--- NOTE | 2018-06-12 21:03 | HP ---
CHIEF COMPLAINT: [facility]ed [facility]elo [facility] in jail PCP: Dr Pino HISTORY OF PRESENT ILLNESS: Pt nonresponsive. Unable to obtain HPI. Information obtained from previous ED and previous medical records. Pt is an 87 y/o M with a significant past medical history of HTN, CAD s/p CABG, CVA, CKD, AAA s/p repair, seizure disorder, chronic respiratory failure, G-tube, dementia, subdural hematoma evacuated x 2, and BPH. Pt presented to our ED this evening from [facility] after nursing staff observed that he pulled out his sotelo catheter. Multiple attempts to re-insert sotelo were unsuccessful by jail staff; pt subsequently referred to our ED. Urology unable to come in due to inclement weather. Needle decompression successful in ED. ROS unable to be obtained due to pt's mental status. ER course was notable for: (1) needle decompression of bladder (2) Leuk ESt 3+ (3) Zosyn 4.5/Vanc 1 gm in ED Recent Travel: PAST MEDICAL HISTORY: HTN, CAD s/p CABG, CVA, CKD, AAA s/p repair, seizure disorder, chronic respiratory failure, G-tube, dementia, and BPH PAST SURGICAL HISTORY: Coronary bypass, AAA repair, G-tube, Hernia repair, Subdural hematoma evacuation x 2, Appendectomy, tonsillectomy Social History: Smoking: negative Alcohol:negative Drugs: negative Family History: Allergies NKDA No Known Allergies Allergy (Verified 06/12/18 18:44) HOME MEDICATIONS: Home Medications Medication Instructions Recorded Brimonidine Tartrate/Timolol 1 drop OD DAILY 10/01/17 [Combigan 0.2%-0.5% Eye Drops] Pantoprazole Suspension [Protonix 40 mg PEG DAILY packet 04/07/18 Packets For Oral Suspension -] Amlodipine Besylate [Norvasc -] 10 mg PEG DAILY #30 tablet 04/08/18 Docusate Sodium [Colace -] 100 mg PEG DAILY #60 capsule 04/08/18 Levothyroxine [Synthroid -] 50 mcg PEG DAILY@0600 #0 syr 04/08/18 Metoprolol Tartrate [Lopressor -] 50 mg PEG BID #60 tablet 04/08/18 Albuterol 2.5/Ipratropium 0.5 1 neb IH QID 04/27/18 [Duoneb -] Guaifenesin 400 mg NGT BID 04/27/18 Scopolamine 1 each TD ASDIR 04/27/18 levETIRAcetam [Keppra Oral 500 mg PEG BID 04/27/18 Solution -] Brimonidine Tartrate [Alphagan 1 drop OD DAILY drops 05/01/18 0.2% -] Doxazosin Mesylate [Cardura] 4 mg PEG HS #30 tablet 06/03/18 Phenytoin Oral Suspension 100 mg GT BID cup 06/03/18 [Dilantin Oral Suspension 100 MG/4 ML] Acetaminophen [Tylenol .Regular 650 mg GT Q6H PRN 06/12/18 Strength -] Atorvastatin Ca [Lipitor] 10 mg GT HS 06/12/18 REVIEW OF SYSTEMS Unable to obtain-pt obtunded nonresponsive PHYSICAL EXAMINATION Vital Signs - 24 hr 06/12/18 13:28 Temperature 99.7 F H Pulse Rate 72 Respiratory 18 Rate Blood Pressure 126/59 L O2 Sat by Pulse 100 Oximetry (%) GENERAL: Nonresponsive, facial grimacing HEAD: NC/AT EYES: LEFT pupil dilated nonreactive, Right pupil constricted EARS, NOSE, THROAT: Mucous observed in mouth, poor oral hygiene NECK: No JVD, Trachea midline LUNGS: Scattered Rhonchi HEART: RRR ABDOMEN:J-Tube in place, NDNT, No HSM UPPER EXTREMITIES: Frail, muscle atrophy, cachexia LOWER EXTREMITIES: Frail, muscle atrophy, cachexia. : Suprapubic drainage tube in place. SKIN: No rashes or lesions appreciated Laboratory Results - last 24 hr 06/12/18 06/12/18 06/12/18 15:15 15:15 16:30 WBC 9.5 RBC 2.92 L Hgb 9.2 L Hct 26.2 L MCV 89.7 MCH 31.5 MCHC 35.1 RDW 16.4 H Plt Count 370 MPV 6.7 L Absolute Neuts (auto) 5.3 Neutrophils % 55.9 Lymphocytes % 16.2 Monocytes % 15.5 H Eosinophils % 11.5 H Basophils % 0.9 Nucleated RBC % 0 Sodium Cancelled 137 Potassium Cancelled 3.8 Chloride Cancelled 102 Carbon Dioxide Cancelled 25 Anion Gap Cancelled 9 BUN Cancelled 26 H Creatinine Cancelled 1.3 Creat Clearance w eGFR Cancelled 52.22 Random Glucose Cancelled 89 Calcium Cancelled 8.4 L Total Bilirubin Cancelled 0.4 AST Cancelled 27 ALT Cancelled 23 Alkaline Phosphatase Cancelled 166 H Total Protein Cancelled 6.3 L Albumin Cancelled 2.7 L Urine Color Urine Appearance Urine pH Ur Specific [place] Urine Protein Urine Glucose (UA) Urine Ketones Urine Blood Urine Nitrite Urine Bilirubin Urine Urobilinogen Ur Leukocyte Esterase Urine WBC (Auto) Urine RBC (Auto) Urine Bacteria Urine Mucus 06/12/18 20:12 WBC RBC Hgb Hct MCV MCH MCHC RDW Plt Count MPV Absolute Neuts (auto) Neutrophils % Lymphocytes % Monocytes % Eosinophils % Basophils % Nucleated RBC % Sodium Potassium Chloride Carbon Dioxide Anion Gap BUN Creatinine Creat Clearance w eGFR Random Glucose Calcium Total Bilirubin AST ALT Alkaline Phosphatase Total Protein Albumin Urine Color Yellow Urine Appearance Cloudy Urine pH 7.0 Ur Specific [place] 1.009 L Urine Protein 2+ H Urine Glucose (UA) Negative Urine Ketones Negative Urine Blood 2+ H Urine Nitrite Negative Urine Bilirubin Negative Urine Urobilinogen Negative Ur Leukocyte Esterase 3+ H Urine WBC (Auto) 583 Urine RBC (Auto) 24 Urine Bacteria Rare Urine Mucus Rare ASSESSMENT/PLAN: Patient is a 87 y/o CM presenting with acute urinary retention due to self- removal of sotelo; s/p suprapubic aspiration of bladder. # Acute Urinary Retention 2/2 sotelo removal. H/o BPH -SP needle decompression in ED. Dr Lovell on board. Suprapubic vs. sotelo. Given pt's mental status and need for chronic catheterization, it is recommended for a suprapubic cystotomy with catheter placement. Less risk of infection compared to chronic indwelling catheter and avoidance of urethral meatus erosion 2/2 chronic irritation from sotelo. -Tamsulosin for BPH -Leukocyte Esterase 3+. -Received Zosyn/Vanc in ED -Bedside US demonstrates distended bladder with approximately 750 ccs of retained urine - Using seldinger technique, an A line catheter was placed for further drainage throughout the night under ultrasound guidance and sterile technique. -Awaiting Urology evaluation in AM # H/O L-hydronephrosis -Renal sonogram L side to evaluate # History of SDH s/p evac x2- Dr Rad Nolasco -Avoid AC for px -Fall precautions; nonacute. No neuro changes from prior encounters. # HTN -Day team to Reconcile meds in AM #CAD s/p CABG -Avoid AC in light of SDH history. # History of seizures -contine home seizure meds. Day team to reconcile meds # Dysphagia s/p J-tube -Continue feeds from the NH on old schedule; given his hypoalbuminemia consider nutrition consult as OP # Hypothyroidism -FU TSH OP -Resume home meds. Day team to reconcile FEN No Fluids Monitor Electrolytes NPO DVT ppx: SCD's Dispo Med Surg Visit type - Emergency Visit Emergency Visit: Yes ED Registration Date: 06/12/18 Care time: The patient presented to the Emergency Department on the above date and was hospitalized for further evaluation of their emergent condition. - New Patient This patient is new to me today: Yes Date on this admission: 06/12/18 - Critical Care Critical Care patient: No
--- NOTE | 2018-06-12 21:11 | PN ---
Teaching Attending Note Name of Resident: Ann Castillo ATTENDING PHYSICIAN STATEMENT I saw and evaluated the patient. I reviewed the resident's note and discussed the case with the resident. I agree with the resident's findings and plan as documented. SUBJECTIVE: Seen and examined; he is a 87 y/o CM with a PMH of multiple medical comorbidities; he requires help in all ADLs and IADLs and is resident of care facility due to his medical issues. He has SDH s/p 2x evacuation with multiple seizures on multiple AEDs, CVA, dysphagia with resulting aspiration pna's due to this s/p J tube placement, recent urinary retention resulting in sotelo placement and L-sided hydro 2/2 BPH, chronic respiratory failure, AAA s/p repair , CKD, CAD s/p CABG, HTN. He has been to the hospital every month since January of this year and based on his chart seems to have had interval decline. I did see him on his day of DC last time. He presents to the hospital due to urinary retention due to pulling out his sotelo catheter. He was discharged with a sotelo ~2 weeks ago and there were plans to do a voiding trial at [email or web address]] which he aparently failed given that he still had the sotelo. He pulled his catheter out at 3AM and developed distended bladder which was needle decompressed in the ER after multiple attempts to place sotelo. Due to inclement weather urology unable to come in tonight per ER documentation; he will be placed on medicine and have uro consultation. Couldn't reliably obtain 10 sys ROS due to baseline mentation PMH and PSH as per chart FH could not be confirmed with patient and is likely noncontributory Social hx is signficant for resident of nursing facility with no EtOH/tobacco abuse currently. He has had increasing number of admits, etc. over the past year. OBJECTIVE: VS, labs, and imaging reviewed NAD, AAOx3, cachectic, contracted, chronically ill appearing and not communicating meaningfull but will localize verbal stimuli, etc. RRR s1/2 no mgr Bladder not palpable, SP drained by ER, no blood at the meatus at this juncture NT ND +BS J-tube in place CN2-12 grossly intact, no fnd but reduced funcional status and slow to respond but not altered from the baseline previously seen at. Essentially unchanged neuro exam from prior admit. Pupils unchanged from prior visit. Cannot assess psych fully but not agitated and cooperative Labs show CBC at his baseline with all values but a persistent Eosinophilia that has been present for 1 month. UA shows 2+ blood, 3+ LE, Negative nitrate, WBC 583 (were 1000-range earlier in the month). BMP is unremarkable. Chronically elevated Alk Phos with chronically low albumin. ASSESSMENT AND PLAN: Patient is a 87 y/o CM presenting with acute urinary retention due to self- removal of sotelo; s/p suprapubic aspiration of bladder. 1) Acute Urinary Retention due to sotelo removal in the setting of BPH +/- Acute complicated UTI associated with sotelo use -SP drain inserted with line supervising airplane pilot on it and taped in place. Tomorrow urology consult to determine if the patient needs SPT vs. sotelo. Further management per urology. -Flomax dose increased last time he was here; continue. -Difficult to say with certainty if this patient actually has a UTI but am suspecting. Cannot tell us if he has sx; likely chronically colonized given prior UTIs growing EF but as the sotelo use for >7 days in a facility is at risk for cystitis. As he was febrile when he came in but without a white count will elect to treat. Given prior sensitivities will cover with Ceftriaxone and treat for complicated UTI and followup blood and urine cultures 2) H/O L-hydronephrosis -Seen on last visit; needed FU renal US to elucidate if any resolution. As it has been nearly 2 weeks can recheck here. 3) History of SDH s/p evac x2 -Avoid AC for px -Fall precautions; nonacute. No neuro changes from prior encounters. 4) Eosinophilia -Seen since 05/30; recommend outpatient referral for complete followup but it is trending p slightly. Will trend CBC, followup peripheral smear, check B12 level (which could be elevated if any underlying ALPS) while inpatient. As this isn't necessarily acute nor is it the reason for admission and can be followed with results outpatient, can check Strongyloides titer and O and P. If basic workup non-revealing and persisting with eosinophilia, consider flow cytometry for lymphocyte subsets (may show clonality in lymphocytic hypereosinophilic syndrome, etc.) 5) HTN -No acute issues, continue home meds 6) CAD s/p CABG -Continue home meds; nonacute. Avoid AC given SDA 7) History of seizures -No seizures; place him on seizure precautions and continue home medications. 8) AAA s/p repair -Nonacute; followup OP 9) Dysphagia s/p J-tube -Continue feeds from the NH on old schedule; given his hypoalbuminemia consider nutrition consult as OP 10) Chronic Respiratory Failure -Speaking to the NH to determine his O2 requirements over the past few weeks; not acutely SOB. Poor lung exam. Saturating mid 90s on 2L O2. 11) Hypothyroidism -FU TSH OP; no acute issues. Continue prior approach. 12) CKD -Monitor BMP and UOP; no acute issues 13) Hypoalbuminemia -Per #9 14) Poor functional status/Dementia -Cannot provide history, tube feed dependent, contracted with low albumin and very poor functional status with ADLs and IADLs -Should discuss goals of care with family Consultants: Urology
[2018-06-12] MEDS ORDERED: VANCOMYCIN 1 GRAM (PRE-DOCKED) 1,000 MG/250 ML BAG IVPB ONE (21:41)
[2018-06-12] MEDS ORDERED: PIPERACILLIN/TAZOB 4.5 GM 4.5 GM/100 ML BAG IVPB ONE (21:41)
[2018-06-12 22:04] LABS: VENOUS PC02 36.5 mmHg (38-52); VENOUS PH 7.46 (7.32-7.42); VENOUS PO2 44.3 mmHg (28-48)
[2018-06-12 22:12] LABS: INR 1.38 (0.83-1.09); PROTHROMBIN TIME (PATIENT) 16.3 SEC (9.7-13.0)
[2018-06-13] MEDS ORDERED: CEFTRIAXONE 1 GM in DEXTROSE 5%-WATER - 50 ML IVPB ONE (05:45)
[2018-06-13] MEDS ORDERED: cefTRIAXone SODIUM 1 GM VIAL ONE (06:05)
[2018-06-13] MEDS ORDERED: DEXTROSE 5%-WATER - 50 ML IVPB ONE (06:05)
[2018-06-13 07:54] LABS: BASO % 0.8 % (0-2.0); EOS % 7.5 % (0-4.5); HEMOGLOBIN 9.9 GM/dL (11.7-16.9); LYMPH % 10.4 % (8-40); MCH 30.8 pg (25.7-33.7); MCHC 34.1 g/dl (32.0-35.9); MEAN CELL VOLUME 90.4 fl (80-96); MEAN PLT VOLUME 6.6 fl (7.5-11.1); MONO % 14.4 % (3.8-10.2); NEUT % 66.9 % (42.8-82.8); PLATELET COUNT 341 K/MM3 (134-434); RBC 3.21 M/mm3 (4.00-5.60); RDW 15.7 % (11.9-15.9); WHITE BLOOD COUNT 8.3 K/mm3 (4.0-10.0)
[2018-06-13 08:05] LABS: ANION GAP 9 MMOL/L (8-16); BLOOD UREA NITROGEN 27 mg/dL (7-18); CALCIUM 8.5 mg/dL (8.5-10.1); CHLORIDE 101 mmol/L (98-107); CO2 26 mmol/L (21-32); CREATININE 1.5 mg/dL (0.55-1.3); GLUCOSE,RANDOM 85 mg/dL (74-106); MAGNESIUM 1.8 mg/dL (1.8-2.4); PHOSPHOROUS 3.1 mg/dL (2.5-4.9); POTASSIUM 3.6 mmol/L (3.5-5.1); SODIUM 136 mmol/L (136-145)
[2018-06-13 08:23] LABS: INR 1.41 (0.83-1.09); PROTHROMBIN TIME (PATIENT) 16.7 SEC (9.7-13.0)
[2018-06-13 08:25] LABS: ACTIVATED PTT 31.4 SECONDS (25.2-36.5)
[2018-06-13] MEDS ORDERED: PROMETHAZINE HCL 25 MG/1 ML VIAL IVPUSH PRN (08:45)
[2018-06-13] MEDS ORDERED: LACTATED RINGERS SOLUTION 1,000 ML IV SCH ×2 (08:45→10:09)
[2018-06-13] MEDS ORDERED: ONDANSETRON 4 MG/2 ML VIAL IVPUSH PRN (08:45)
--- NOTE | 2018-06-13 08:57 | CON.GU ---
Consult - History of Present Illness History of Present Illness: 87 yo male with sotelo who pulled it out at [place], now could not be replaced. Have suprapubic bladder drainage in ER last night. I am unable to place sotelo at bedside - Past Medical History [employer]: Yes: Dementia Cardio/Vascular: Yes: CAD (CABG- 2004), HTN, Hyperlipdemia, Other (infrarenal AAA 4.7cm (November 2014)). No: AFIB, Aneurysm, Aortic Insufficiency, Aortic Stenosis, CHF, Deep Vein Thrombosis, NM, Mitral Insufficiency, Mitral Stenosis, Murmur, Pulmonary Hypertension Pulmonary: Yes: Pneumonia Gastrointestinal: Yes: Irritable Bowel Disease Musculoskeletal: Yes: Chronic low back pain (with radiculopathy) Rheumatology: Yes: Gout, Other (Polymyalgia Rheumatica) Endocrine: Yes: Hypothyroidism. No: Bossier's Disease, Archie's Disease, Diabetes Insipidus, Diabetes Mellitus, Hyperparathyroidism, Hyperthyroidism, Osteopenia, SIADH, Other - Past Surgical History Past Surgical History: Yes: AAA Repair, Appendectomy, CABG ([facility]), Tonsillectomy. No: None, AICD, Amputation, Arthrosocopy, AV Fistula/Graft, Bariatric Surgery, Breast Biopsy, Bypass, Carotid Endarterectomy, Cataract Removal, Cholecystectomy, Colectomy, Colonoscopy, Colostomy, Craniotomy, C- Section, Cystectomy, Hernia Repair, Hysterectomy, Ileal Conduit, Ileosotomy, Joint Replacement, Kidney Transplant, Laminectomy, Liver Transplant, Mastectomy , Nephrectomy, Oopherectomy, Orchiectomy, Permanent Pacemaker, Prostatectomy, Splenectomy, Stent, Thoracotomy, TURP, Tubal Ligation, Upper Endoscopy, Valve Replacement, Vasectomy, Vein Stripping/Ligation - Alcohol/Substance Use Hx Alcohol Use: No - Smoking History Smoking history: Unknown if ever smoked Have you smoked in the past 12 months: No Aproximately how many cigarettes per day: 0 - Social History ADL: Support Services History of Recent Travel: No Home Medications - Allergies Allergies/Adverse Reactions: Allergies Allergy/AdvReac Type Severity Reaction Status Date / Time No Known Allergies Allergy Verified 06/12/18 18:44 - Home Medications Home Medications: Ambulatory Orders Brimonidine Tartrate/Timolol [Combigan 0.2%-0.5% Eye Drops] 1 drop OD DAILY 01/13 Pantoprazole Suspension [Protonix Packets For Oral Suspension -] 40 mg PEG DAILY packet 04/07/18 Amlodipine Besylate [Norvasc -] 10 mg PEG DAILY #30 tablet 04/08/18 Docusate Sodium [Colace -] 100 mg PEG DAILY #60 capsule 04/08/18 Levothyroxine [Synthroid -] 50 mcg PEG DAILY@0600 #0 syr 04/08/18 Metoprolol Tartrate [Lopressor -] 50 mg PEG BID #60 tablet 04/08/18 Albuterol 2.5/Ipratropium 0.5 [Duoneb -] 1 neb IH QID 04/27/18 Guaifenesin 400 mg NGT BID 04/27/18 Scopolamine 1 each TD ASDIR 04/27/18 levETIRAcetam [Keppra Oral Solution -] 500 mg PEG BID 04/27/18 Brimonidine Tartrate [Alphagan 0.2% -] 1 drop OD DAILY drops 05/01/18 Doxazosin Mesylate [Cardura] 4 mg PEG HS #30 tablet 06/03/18 Phenytoin Oral Suspension [Dilantin Oral Suspension 100 MG/4 ML] 100 mg GT BID cup 06/03/18 Acetaminophen [Tylenol .Regular Strength -] 650 mg GT Q6H PRN 06/12/18 Atorvastatin Ca [Lipitor] 10 mg GT HS 06/12/18 Physical Exam- Vital Signs: Vital Signs Temperature 98.2 F 06/13/18 06:16 Pulse Rate 80 06/13/18 06:16 Respiratory Rate 20 06/13/18 06:18 Blood Pressure 150/70 06/13/18 06:16 O2 Sat by Pulse Oximetry (%) 95 06/13/18 06:18 Labs: CBC, BMP 06/13/18 06:45 06/13/18 06:45 Problem List - Problems (1) Urinary retention Assessment/Plan: will take to OR emergently for cysto/sotelo, poss SPT. R/B/A discussed and consent obatined from Ms Mclaughlin ([facility]) Code(s): R33.9 - RETENTION OF URINE, UNSPECIFIED
[2018-06-13] MEDS ORDERED: PROPOFOL 20 ML ONE ×2 (09:11)
[2018-06-13] MEDS ORDERED: LIDOCAINE HCL/PF 2% SDV 5ML VIAL ONE (09:17)
[2018-06-13] MEDS ORDERED: MIDAZOLAM HCL 2 MG/2 ML SINGLE DOSE VIAL ONE (09:21)
[2018-06-13] MEDS ORDERED: DEXAMETHASONE SOD PHOSPHATE 4 MG/1 ML VIAL ONE (09:21)
--- NOTE | 2018-06-13 09:39 | OP ---
Operative Note - Note: Operative Date: 06/13/18 Pre-Operative Diagnosis: retention Operation: cysto/dilation/sotelo insertion Post-Operative Diagnosis: Same as Pre-op Anesthesia: General Estimated Blood Loss (mls): 0 Operative Report Dictated: Yes
--- NOTE | 2018-06-13 11:15 | OP ---
DATE OF OPERATION: DATE OF DICTATION: 06/13/2018 PREOPERATIVE DIAGNOSIS: Urinary retention. POSTOPERATIVE DIAGNOSIS: Urinary retention and urethral stricture. PROCEDURE: Cystoscopy, dilation of stricture, Penny insertion. SURGEON: Bobby Bui MD INDICATIONS: Patient is an 87-year-old male, a residential patient, who pulled out his Penny catheter, and Pneny could not be reinserted by any of the ER staff, this was including myself. He had immediate drainage suprapubically as a temporary fix, but he needed more of a long-term plan. Prior to this, he had been managed with a Penny catheter. After informed consent obtained with his health care proxy, Ms. Moss, he was taken to the OR for cystoscopy, Penny insertion, and possible suprapubic if necessary. Once in the OR, patient was placed supine on the OR table. After cardiac monitoring administered and general anesthesia established, the penis and groin were prepped and draped in standard surgical fashion. A flexible cystoscope was inserted into the urethra without difficulty. Anterior urethra was normal. Bulbar urethra revealed false passage with some stricture. A guidewire advanced through that area of narrowing and was dilated to 20-[place]oc[place]. Over a wire, an 18-[place]-tip catheter was advanced and clear urine was received and wire removed. Patient was then awoken from anesthesia and transferred to recovery room in stable condition. There were no complications. There was no blood loss. BOBBY BUI M.D. [id number]
[2018-06-13] MEDS ORDERED: ACETAMINOPHEN 325 MG TABLET (FP) PO PRN (11:37)
[2018-06-13] MEDS ORDERED: ALBUTEROL SO4 2.5/IPRATROPIUM 0.5 INH SOL 3 ML VIAL.NEB. NEB PRN (11:45)
[2018-06-13] MEDS ORDERED: SODIUM CHLORIDE 1,000 ML IV SCH (12:00)
[2018-06-13] MEDS ORDERED: PATIENT'S OWN MEDICATION (NON-FORMULARY) (Brimonidine Tartrate/Timolol [Combigan 0.2%-0.5% OD SCH (12:00)
[2018-06-13] MEDS: LACTATED RINGERS SOLUTION 1,000 ML/1,000 ML INFUS.BAG IV SCH (13:35)
[2018-06-13] MEDS: METOPROLOL TARTRATE 50 MG TABLET (FP) PEG SCH ×2 (13:36→21:43)
[2018-06-13] MEDS: amLODIPine BESYLATE 5 MG TABLET (FP) PEG SCH (13:36)
[2018-06-13] MEDS: PANTOPRAZOLE SOD 40 MG SUSPENSION PACKET PEG SCH (13:36)
--- NOTE | 2018-06-13 13:49 | PN ---
Physical Exam: SUBJECTIVE: Patient seen and examined at the bedside. OBJECTIVE: Vital Signs Period Temp Pulse Resp BP Sys/Michel Pulse Ox Last 24 Hr 97.6 F-102 F 80-125 16-30 131-152/65-86 95-100 GENERAL: The patient is awake, lethargic at times. appears comfortable at rest. cachectic, protruding clavicles, easily palpable chest bones HEAD: Normal with no signs of trauma. EYES: PERRL, extraocular movements intact, sclera anicteric, conjunctiva clear. No ptosis. ENT: Ears normal, nares patent, oropharynx clear without exudates, moist mucous membranes. NECK: Trachea midline, full range of motion, supple. LUNGS: diminished bilaterally, breathing less labored. HEART: Regular rate and rhythm ABDOMEN: Soft, nontender, nondistended, normoactive bowel sounds, +g/j tube EXTREMITIES: 2+ pulses, warm, well-perfused, no edema. NEUROLOGICAL: garbled speech, facial symmetry PSYCH: calm Laboratory Results - last 24 hr 06/12/18 06/12/18 06/12/18 15:15 15:15 16:30 WBC 9.5 RBC 2.92 L Hgb 9.2 L Hct 26.2 L MCV 89.7 MCH 31.5 MCHC 35.1 RDW 16.4 H Plt Count 370 MPV 6.7 L Absolute Neuts (auto) 5.3 Neutrophils % 55.9 Lymphocytes % 16.2 Monocytes % 15.5 H Eosinophils % 11.5 H Basophils % 0.9 Nucleated RBC % 0 PT with INR INR PTT (Actin FS) VBG pH POC VBG pCO2 POC VBG pO2 Mixed VBG HCO3 Sodium Cancelled 137 Potassium Cancelled 3.8 Chloride Cancelled 102 Carbon Dioxide Cancelled 25 Anion Gap Cancelled 9 BUN Cancelled 26 H Creatinine Cancelled 1.3 Creat Clearance w eGFR Cancelled 52.22 Random Glucose Cancelled 89 Lactic Acid Calcium Cancelled 8.4 L Phosphorus Magnesium Total Bilirubin Cancelled 0.4 AST Cancelled 27 ALT Cancelled 23 Alkaline Phosphatase Cancelled 166 H Total Protein Cancelled 6.3 L Albumin Cancelled 2.7 L Vitamin B12 Urine Color Urine Appearance Urine pH Ur Specific [place] Urine Protein Urine Glucose (UA) Urine Ketones Urine Blood Urine Nitrite Urine Bilirubin Urine Urobilinogen Ur Leukocyte Esterase Urine WBC (Auto) Urine RBC (Auto) Urine Bacteria Urine Mucus 06/12/18 06/12/18 06/12/18 20:12 20:55 21:30 WBC RBC Hgb Hct MCV MCH MCHC RDW Plt Count MPV Absolute Neuts (auto) Neutrophils % Lymphocytes % Monocytes % Eosinophils % Basophils % Nucleated RBC % PT with INR 16.30 H INR 1.38 H PTT (Actin FS) VBG pH POC VBG pCO2 POC VBG pO2 Mixed VBG HCO3 Sodium Potassium Chloride Carbon Dioxide Anion Gap BUN Creatinine Creat Clearance w eGFR Random Glucose Lactic Acid 1.5 Calcium Phosphorus Magnesium Total Bilirubin AST ALT Alkaline Phosphatase Total Protein Albumin Vitamin B12 Urine Color Yellow Urine Appearance Cloudy Urine pH 7.0 Ur Specific [place] 1.009 L Urine Protein 2+ H Urine Glucose (UA) Negative Urine Ketones Negative Urine Blood 2+ H Urine Nitrite Negative Urine Bilirubin Negative Urine Urobilinogen Negative Ur Leukocyte Esterase 3+ H Urine WBC (Auto) 583 Urine RBC (Auto) 24 Urine Bacteria Rare Urine Mucus Rare 06/12/18 06/12/18 06/12/18 21:30 22:45 22:48 WBC RBC Hgb Hct MCV MCH MCHC RDW Plt Count MPV Absolute Neuts (auto) Neutrophils % Lymphocytes % Monocytes % Eosinophils % Basophils % Nucleated RBC % PT with INR INR PTT (Actin FS) VBG pH 7.46 H POC VBG pCO2 36.5 L POC VBG pO2 44.3 D Mixed VBG HCO3 25.3 H Sodium Potassium Chloride Carbon Dioxide Anion Gap BUN Creatinine Creat Clearance w eGFR Random Glucose Lactic Acid 0.8 Calcium Phosphorus Magnesium Total Bilirubin AST ALT Alkaline Phosphatase Total Protein Albumin Vitamin B12 1039 H Urine Color Urine Appearance Urine pH Ur Specific [place] Urine Protein Urine Glucose (UA) Urine Ketones Urine Blood Urine Nitrite Urine Bilirubin Urine Urobilinogen Ur Leukocyte Esterase Urine WBC (Auto) Urine RBC (Auto) Urine Bacteria Urine Mucus 06/13/18 06/13/18 06/13/18 06:45 06:45 06:45 WBC 8.3 RBC 3.21 L Hgb 9.9 L Hct 29.0 L MCV 90.4 MCH 30.8 MCHC 34.1 RDW 15.7 Plt Count 341 MPV 6.6 L Absolute Neuts (auto) 5.5 Neutrophils % 66.9 Lymphocytes % 10.4 D Monocytes % 14.4 H Eosinophils % 7.5 H Basophils % 0.8 Nucleated RBC % 0 PT with INR 16.70 H INR 1.41 H PTT (Actin FS) 31.4 VBG pH POC VBG pCO2 POC VBG pO2 Mixed VBG HCO3 Sodium 136 Potassium 3.6 Chloride 101 Carbon Dioxide 26 Anion Gap 9 BUN 27 H Creatinine 1.5 H Creat Clearance w eGFR 44.27 Random Glucose 85 Lactic Acid Calcium 8.5 Phosphorus 3.1 Magnesium 1.8 Total Bilirubin AST ALT Alkaline Phosphatase Total Protein Albumin Vitamin B12 Urine Color Urine Appearance Urine pH Ur Specific [place] Urine Protein Urine Glucose (UA) Urine Ketones Urine Blood Urine Nitrite Urine Bilirubin Urine Urobilinogen Ur Leukocyte Esterase Urine WBC (Auto) Urine RBC (Auto) Urine Bacteria Urine Mucus Active Medications Generic Name Dose Route Start Last Admin Trade Name Freq PRN Reason Stop Dose Admin Acetaminophen 650 mg 06/13/18 11:37 Tylenol - PO Q6H PRN FEVER Albuterol/Ipratropium 1 amp 06/13/18 11:45 Duoneb - NEB Q6H PRN SHORT OF BREATH/WHEEZING Amlodipine Besylate 10 mg 06/13/18 11:45 06/13/18 13:36 Norvasc - PEG 10 mg DAILY KRISTY Administration Doxazosin Mesylate 4 mg 06/13/18 22:00 Cardura - PEG HS KRISTY Lactated Ringer's 1,000 ml in 1,000 mls @ 42 mls/hr 06/13/18 12:00 06/13/18 13:35 Lactated Ringers Solution IV 42 mls/hr ASDIR KRISTY Administration Levetiracetam 500 mg 06/13/18 11:45 Keppra Oral Solution - PEG BID KRISTY Metoprolol Tartrate 50 mg 06/13/18 12:00 06/13/18 13:36 Lopressor - PEG 50 mg BID KRISTY Administration Non-Formulary Medication 1 drop 06/13/18 12:00 Brimonidine Tartrate/Timolol [Combigan 0.2%-0.5% Eye Drops] OD DAILY KRISTY Non-Formulary Medication 400 mg 06/13/18 22:00 Guaifenesin [Guaifenesin] NGT BID KRISTY Pantoprazole Sodium 40 mg 06/13/18 12:00 06/13/18 13:36 Protonix Packets For Oral Suspension - PEG 40 mg DAILY KRISTY Administration Phenytoin Sodium 100 mg 06/13/18 12:00 Dilantin Oral Suspension - GT BID KRISTY Scopolamine HBr 1 patch 06/13/18 11:45 Transderm-Scop - TD ASDIR [facility] ASSESSMENT/PLAN: Patient is an 87 year-old male with a past medical history as noted below. He is from [facility] and comes to [facility] with acute urinary retention due to self- removal of sotelo. He is s/p suprapubic aspiration of bladder. Had a cysto with sotelo placement in the OR on 06/13/2018. : Acute Urinary Retention BPH hx of hydronephrosis s/p needle decompression in ED. patient in the OR today s/p cysto/dilation/sotelo insertion. monitor output. urine cultures pending on ceftrixone for +ua On Flomax left hydronephrosis seen on CT imaging. urology following. on flomax. Renal: Acute on chronic kidney disease/Azotemia left hydro on abd ct. creat above baseline. continue to hydrate. card: Hypertension: controlled. on amlodipine, metoprolol. Neuro: Seizure disorder. hx of subdural hematoma, 2 evacuations. followed by neuro. On dilantin 100mg bid. Endocrine: Hypothyroidism. on Levothyroxine fen LR @ 75 monitor labs osmolite tube feeds 24 hours continuous prophy protonix disposition: molst form signed and in chart. discharge back to [facility] likely tomorrow. Visit type - Emergency Visit Emergency Visit: Yes ED Registration Date: 06/12/18 Care time: The patient presented to the Emergency Department on the above date and was hospitalized for further evaluation of their emergent condition. - New Patient This patient is new to me today: No - Critical Care Critical Care patient: No - Discharge Referral Referred to [facility] No
[2018-06-13 17:25] VITALS: BMI 22.1
[2018-06-13] MEDS: PHENYTOIN 100 MG/4 ML U-D CUP GT SCH ×2 (17:53→21:43)
[2018-06-13] MEDS: levETIRAcetam 500 MG/5 ML ORAL SOLUTION (UNIT-DOSE CUPS) PEG SCH ×2 (17:54→21:43)
[2018-06-13] MEDS ORDERED: SODIUM CHLORIDE 500 ML IV STA (18:17)
[2018-06-13] MEDS ORDERED: PT OWN MED DRAWER 7, Y5N ONE ×2 (18:25→21:45)
[2018-06-13] MEDS: SCOPOLAMINE HYDROBROMIDE 1 PATCH PATCH.TD72 TD SCH (20:17)
[2018-06-13] MEDS: guaiFENesin 200 MG/10 ML 10 ML UNIT-DOSE CUPS NGT SCH (21:43)
[2018-06-13] MEDS: DOXAZOSIN MESYLATE 4 MG TABLET PEG SCH (21:43)
[2018-06-14] MEDS ORDERED: PT OWN MED DRAWER 7, Y5N ONE ×3 (07:10→22:18)
[2018-06-14 07:47] LABS: EOS % 9.7 % (0-4.5); HEMATOCRIT 23.1 % (35.4-49); HEMOGLOBIN 7.7 GM/dL (11.7-16.9); LYMPH % 19.3 % (8-40); MCH 29.9 pg (25.7-33.7); MCHC 33.2 g/dl (32.0-35.9); MEAN CELL VOLUME 90.2 fl (80-96); MEAN PLT VOLUME 6.9 fl (7.5-11.1); MONO % 14.3 % (3.8-10.2); NEUT % 55.7 % (42.8-82.8); PLATELET COUNT 249 K/MM3 (134-434); RBC 2.56 M/mm3 (4.00-5.60); RDW 15.8 % (11.9-15.9); WHITE BLOOD COUNT 6.5 K/mm3 (4.0-10.0)
[2018-06-14 07:56] LABS: ALBUMIN 2.3 g/dl (3.4-5.0); ALK PHOS 127 U/L (45-117); ANION GAP 9 MMOL/L (8-16); BILIRUBIN,TOTAL 0.3 mg/dL (0.2-1); BLOOD UREA NITROGEN 27 mg/dL (7-18); CALCIUM 8.1 mg/dL (8.5-10.1); CHLORIDE 104 mmol/L (98-107); CO2 26 mmol/L (21-32); CREATININE 1.5 mg/dL (0.55-1.3); GLUCOSE,RANDOM 111 mg/dL (74-106); MAGNESIUM 1.6 mg/dL (1.8-2.4); POTASSIUM 3.3 mmol/L (3.5-5.1); SGOT/AST 18 U/L (15-37); SGPT/ALT 18 U/L (13-61); SODIUM 139 mmol/L (136-145); TOT PROT 5.4 g/dl (6.4-8.2)
--- NOTE | 2018-06-14 09:41 | PN ---
Progress Note, Physician Chief Complaint: day 1 s/p urethral dilation under GA - Current Medication List Current Medications: Active Medications Acetaminophen (Tylenol -) 650 mg PO Q6H PRN PRN Reason: FEVER Albuterol/Ipratropium (Duoneb -) 1 amp NEB Q6H PRN PRN Reason: SHORT OF BREATH/WHEEZING Amlodipine Besylate (Norvasc -) 10 mg PEG DAILY [facility] Last Admin: 06/13/18 13:36 Dose: 10 mg Dorzolamide HCl (Trusopt 2%) 1 drop OD DAILY [facility] Doxazosin Mesylate (Cardura -) 4 mg PEG HS [facility] Last Admin: 06/13/18 21:43 Dose: 4 mg Guaifenesin (Robitussin -) 20 ml NGT BID [facility] Last Admin: 06/13/18 21:43 Dose: 20 ml Lactated Ringer's (Lactated Ringers Solution) 1,000 ml in 1,000 mls @ 42 mls/ hr IV ASDIR [facility] Last Admin: 06/13/18 13:35 Dose: 42 mls/hr Ceftriaxone Sodium 1 gm/ (Dextrose) 50 mls @ 100 mls/hr IVPB DAILY [facility]; Protocol Levetiracetam (Keppra Oral Solution -) 500 mg PEG BID [facility] Last Admin: 06/13/18 21:43 Dose: 500 mg Metoprolol Tartrate (Lopressor -) 50 mg PEG BID [facility] Last Admin: 06/13/18 21:43 Dose: 50 mg Pantoprazole Sodium (Protonix Packets For Oral Suspension -) 40 mg PEG DAILY [facility] Last Admin: 06/13/18 13:36 Dose: 40 mg Phenytoin Sodium (Dilantin Oral Suspension -) 100 mg GT BID [facility] Last Admin: 06/13/18 21:43 Dose: 100 mg Scopolamine HBr (Transderm-Scop -) 1 patch TD Q3D@1000 [facility] Last Admin: 06/13/18 20:17 Dose: 1 patch Timolol Maleate (Timoptic 0.5%) 1 drop OD DAILY [facility] - Objective Vital Signs: Vital Signs Temperature 98.2 F 06/14/18 07:00 Pulse Rate 75 06/14/18 07:00 Respiratory Rate 18 06/14/18 07:00 Blood Pressure 128/50 L 06/14/18 07:00 O2 Sat by Pulse Oximetry (%) 100 06/13/18 21:00 Labs: CBC, BMP 06/14/18 06:10 06/14/18 06:10 INR, PTT INR 1.41 (0.83-1.09) H 06/13/18 06:45 Assessment/Plan Pt sleepy/somewhat lethargic, which is apparently his baseline. No pain reported; no other anesthetic issues/complications
[2018-06-14] MEDS ORDERED: DEXTROSE 5%-WATER - 50 ML IVPB ONE (10:33)
[2018-06-14] MEDS ORDERED: cefTRIAXone SODIUM 1 GM VIAL ONE (10:33)
[2018-06-14] MEDS: guaiFENesin 200 MG/10 ML 10 ML UNIT-DOSE CUPS NGT SCH ×2 (10:36→21:22)
[2018-06-14] MEDS: CEFTRIAXONE 1 GM in DEXTROSE 5%-WATER - 50 ML IVPB SCH (10:37)
[2018-06-14] MEDS: PANTOPRAZOLE SOD 40 MG SUSPENSION PACKET PEG SCH (10:37)
[2018-06-14] MEDS: PHENYTOIN 100 MG/4 ML U-D CUP GT SCH ×2 (10:38→21:22)
[2018-06-14] MEDS: levETIRAcetam 500 MG/5 ML ORAL SOLUTION (UNIT-DOSE CUPS) PEG SCH ×2 (10:38→21:23)
[2018-06-14] MEDS: METOPROLOL TARTRATE 50 MG TABLET (FP) PEG SCH ×2 (10:39→21:22)
[2018-06-14] MEDS: amLODIPine BESYLATE 5 MG TABLET (FP) PEG SCH (10:39)
[2018-06-14] MEDS: TIMOLOL 0.5% OPHTHALMIC SOL 5 ML BOTTLE OD SCH (10:40)
[2018-06-14] MEDS: DORZOLAMIDE 2% HCL OPHTHALMIC SOLUTION 10 ML BOTTLE OD SCH (10:40)
--- NOTE | 2018-06-14 11:25 | PN ---
Progress Note (short form) - Note Progress Note: sotelo in place urine clear malaika sotelo Problem List - Problems (1) Urinary retention Code(s): R33.9 - RETENTION OF URINE, UNSPECIFIED
[2018-06-14] MEDS ORDERED: MAGNESIUM SULF 50% (8.12 MEQ/2 ML-1 GM VIAL) IVPB ONE (11:39)
[2018-06-14] MEDS ORDERED: POTASSIUM CHLORIDE ORAL LIQUID 20 MEQ/15 ML GT ONE (11:40)
[2018-06-14 13:04] LABS: BASO % 0.7 % (0-2.0); EOS % 13.4 % (0-4.5); HEMATOCRIT 22.3 % (35.4-49); HEMOGLOBIN 7.5 GM/dL (11.7-16.9); LYMPH % 16.9 % (8-40); MCH 30.3 pg (25.7-33.7); MCHC 33.7 g/dl (32.0-35.9); MEAN PLT VOLUME 6.6 fl (7.5-11.1); MONO % 14.8 % (3.8-10.2); NEUT % 54.2 % (42.8-82.8); PLATELET COUNT 263 K/MM3 (134-434); RBC 2.48 M/mm3 (4.00-5.60); WHITE BLOOD COUNT 6.2 K/mm3 (4.0-10.0)
--- NOTE | 2018-06-14 15:49 | PN ---
Physical Exam: SUBJECTIVE: Patient seen and examined at the bedside. awake, smiling. comfortable at rest. OBJECTIVE: hmg dipped post procedure but above 7. discharge back to [facility] tomorrow. to have repeat cbc and repeat labs at [facility] with clear yellow urine Vital Signs Period Temp Pulse Resp BP Sys/Michel Pulse Ox Last 24 Hr 97.4 F-98.4 F 61-86 18-18 117-133/50-69 100 GENERAL: The patient is awake, lethargic at times. appears comfortable at rest. cachectic, protruding clavicles, easily palpable chest bones HEAD: Normal with no signs of trauma. EYES: PERRL, extraocular movements intact, sclera anicteric, conjunctiva clear. No ptosis. ENT: Ears normal, nares patent, oropharynx clear without exudates, moist mucous membranes. NECK: Trachea midline, full range of motion, supple. LUNGS: diminished bilaterally, breathing less labored. HEART: Regular rate and rhythm ABDOMEN: Soft, nontender, nondistended, normoactive bowel sounds, +g/j tube EXTREMITIES: 2+ pulses, warm, well-perfused, no edema. NEUROLOGICAL: garbled speech, facial symmetry Laboratory Results - last 24 hr 06/14/18 06/14/18 06/14/18 06:10 06:10 12:49 WBC 6.5 6.2 RBC 2.56 L 2.48 L Hgb 7.7 L 7.5 L Hct 23.1 L D 22.3 L MCV 90.2 90.0 MCH 29.9 30.3 MCHC 33.2 33.7 RDW 15.8 16.0 H Plt Count 249 D 263 MPV 6.9 L 6.6 L Absolute Neuts (auto) 3.6 3.4 Neutrophils % 55.7 54.2 Lymphocytes % 19.3 D 16.9 Monocytes % 14.3 H 14.8 H Eosinophils % 9.7 H 13.4 H Basophils % 1.0 0.7 Nucleated RBC % 0 0 Sodium 139 Potassium 3.3 L Chloride 104 Carbon Dioxide 26 Anion Gap 9 BUN 27 H Creatinine 1.5 H Creat Clearance w eGFR 44.27 Random Glucose 111 H Calcium 8.1 L Magnesium 1.6 L Total Bilirubin 0.3 AST 18 ALT 18 Alkaline Phosphatase 127 H Total Protein 5.4 L Albumin 2.3 L Active Medications Generic Name Dose Route Start Last Admin Trade Name Freq PRN Reason Stop Dose Admin Acetaminophen 650 mg 06/13/18 11:37 Tylenol - PO Q6H PRN FEVER Albuterol/Ipratropium 1 amp 06/13/18 11:45 Duoneb - NEB Q6H PRN SHORT OF BREATH/WHEEZING Amlodipine Besylate 10 mg 06/13/18 11:45 06/14/18 10:39 Norvasc - PEG 10 mg DAILY KRISTY Administration Dorzolamide HCl 1 drop 06/14/18 10:00 06/14/18 10:40 Trusopt 2% OD 1 drop DAILY KRISTY Administration Doxazosin Mesylate 4 mg 06/13/18 22:00 06/13/18 21:43 Cardura - PEG 4 mg HS KRISTY Administration Guaifenesin 20 ml 06/13/18 22:00 06/14/18 10:36 Robitussin - NGT 20 ml BID KRISTY Administration Lactated Ringer's 1,000 ml in 1,000 mls @ 42 mls/hr 06/13/18 12:00 06/13/18 13:35 Lactated Ringers Solution IV 42 mls/hr ASDIR KRISTY Administration Ceftriaxone Sodium 1 gm/ 50 mls @ 100 mls/hr 06/14/18 10:00 06/14/18 10:37 Dextrose IVPB 100 mls/hr DAILY KRISTY Administration Protocol Levetiracetam 500 mg 06/13/18 11:45 06/14/18 10:38 Keppra Oral Solution - PEG 500 mg BID KRISTY Administration Metoprolol Tartrate 50 mg 06/13/18 12:00 06/14/18 10:39 Lopressor - PEG 50 mg BID KRISTY Administration Pantoprazole Sodium 40 mg 06/13/18 12:00 06/14/18 10:37 Protonix Packets For Oral Suspension - PEG 40 mg DAILY KRISTY Administration Phenytoin Sodium 100 mg 06/13/18 12:00 06/14/18 10:38 Dilantin Oral Suspension - GT 100 mg BID KRISTY Administration Scopolamine HBr 1 patch 06/13/18 17:15 06/13/18 20:17 Transderm-Scop - TD 1 patch Q3D@1000 KRISTY Administration Timolol Maleate 1 drop 06/14/18 10:00 06/14/18 10:40 Timoptic 0.5% OD 1 drop DAILY KRISTY Administration ASSESSMENT/PLAN: Patient is an 87 year-old male with a past medical history as noted below. He is from [facility] and comes to [facility] with acute urinary retention due to self- removal of sotelo. He is s/p suprapubic aspiration of bladder. Had a cysto with sotelo placement in the OR on 06/13/2018. : Acute Urinary Retention, resolved s/p sotelo placement in the OR on 06/13/2018 (s /p cysto/dilation/sotelo insertion). BPH/hx of hydronephrosis s/p needle decompression in ED. patient in the OR today monitor output. urine cultures pending on ceftrixone for +ua, convert to GT antibiotics prior to d/c left hydronephrosis seen on CT imaging. urology following. on flomax. Renal: Acute on chronic kidney disease/Azotemia left hydro on abd ct. creat above baseline. continue to gently hydrate. card: Hypertension: controlled. on amlodipine, metoprolol. Neuro: Seizure disorder. hx of subdural hematoma, 2 evacuations. followed by neuro. On dilantin 100mg bid. Endocrine: Hypothyroidism. on Levothyroxine fen LR @ 50 monitor labs osmolite tube feeds 24 hours continuous prophy protonix disposition: molst form signed and in chart. discharge back to [facility] likely tomorrow. Visit type - Emergency Visit Emergency Visit: Yes ED Registration Date: 06/12/18 Care time: The patient presented to the Emergency Department on the above date and was hospitalized for further evaluation of their emergent condition. - New Patient This patient is new to me today: No - Critical Care Critical Care patient: No - Discharge Referral Referred to [facility] No
[2018-06-14] MEDS: LACTATED RINGERS SOLUTION 1,000 ML/1,000 ML INFUS.BAG IV SCH (17:05)
[2018-06-14] MEDS: DOXAZOSIN MESYLATE 4 MG TABLET PEG SCH (21:22)
[2018-06-15 09:38] LABS: BASO % 0.8 % (0-2.0); EOS % 16.6 % (0-4.5); HEMATOCRIT 25.7 % (35.4-49); HEMOGLOBIN 8.4 GM/dL (11.7-16.9); LYMPH % 19.6 % (8-40); MCH 30.2 pg (25.7-33.7); MCHC 32.8 g/dl (32.0-35.9); MEAN CELL VOLUME 92.1 fl (80-96); MEAN PLT VOLUME 6.8 fl (7.5-11.1); MONO % 11.8 % (3.8-10.2); NEUT % 51.2 % (42.8-82.8); PLATELET COUNT 251 K/MM3 (134-434); RBC 2.79 M/mm3 (4.00-5.60); RDW 16.3 % (11.9-15.9)
[2018-06-15 09:57] LABS: ALBUMIN 2.3 g/dl (3.4-5.0); ALK PHOS 126 U/L (45-117); ANION GAP 5 MMOL/L (8-16); BILIRUBIN,TOTAL 0.2 mg/dL (0.2-1); BLOOD UREA NITROGEN 22 mg/dL (7-18); CALCIUM 7.9 mg/dL (8.5-10.1); CHLORIDE 107 mmol/L (98-107); CO2 26 mmol/L (21-32); CREATININE 1.3 mg/dL (0.55-1.3); GLUCOSE,RANDOM 114 mg/dL (74-106); MAGNESIUM 1.8 mg/dL (1.8-2.4); POTASSIUM 3.3 mmol/L (3.5-5.1); SGOT/AST 32 U/L (15-37); SGPT/ALT 22 U/L (13-61); SODIUM 139 mmol/L (136-145); TOT PROT 5.4 g/dl (6.4-8.2)
[2018-06-15] MEDS ORDERED: PT OWN MED DRAWER 7, Y5N ONE (10:09)
[2018-06-15] MEDS ORDERED: cefTRIAXone SODIUM 1 GM VIAL ONE (10:10)
[2018-06-15] MEDS ORDERED: DEXTROSE 5%-WATER - 50 ML IVPB ONE (10:10)
[2018-06-15] MEDS ORDERED: POTASSIUM CHLORIDE ORAL LIQUID 20 MEQ/15 ML GT ONE (10:15)
[2018-06-15] MEDS: CEFTRIAXONE 1 GM in DEXTROSE 5%-WATER - 50 ML IVPB SCH (10:15)
[2018-06-15] MEDS: guaiFENesin 200 MG/10 ML 10 ML UNIT-DOSE CUPS NGT SCH ×2 (10:16→22:05)
[2018-06-15] MEDS: PANTOPRAZOLE SOD 40 MG SUSPENSION PACKET PEG SCH (10:17)
[2018-06-15] MEDS: METOPROLOL TARTRATE 50 MG TABLET (FP) PEG SCH ×2 (10:17→22:05)
[2018-06-15] MEDS: PHENYTOIN 100 MG/4 ML U-D CUP GT SCH ×2 (10:17→22:05)
[2018-06-15] MEDS: amLODIPine BESYLATE 5 MG TABLET (FP) PEG SCH (10:17)
[2018-06-15] MEDS: DORZOLAMIDE 2% HCL OPHTHALMIC SOLUTION 10 ML BOTTLE OD SCH (10:18)
[2018-06-15] MEDS: levETIRAcetam 500 MG/5 ML ORAL SOLUTION (UNIT-DOSE CUPS) PEG SCH ×2 (10:18→22:06)
[2018-06-15] MEDS: TIMOLOL 0.5% OPHTHALMIC SOL 5 ML BOTTLE OD SCH (10:20)
--- NOTE | 2018-06-15 10:31 | DS ---
Physical Exam: SUBJECTIVE: Patient seen and examined at the bedside. patient appears well, at his baseline. urine clear. OBJECTIVE: urine sensitivities, noted start on levaquin Vital Signs Period Temp Pulse Resp BP Sys/Michel Pulse Ox Last 24 Hr 97.9 F-98.4 F 61-70 18-18 130-147/58-73 99 PHYSICAL EXAM GENERAL: The patient is awake, lethargic at times. appears comfortable at rest. cachectic, protruding clavicles, easily palpable chest bones HEAD: Normal with no signs of trauma. EYES: PERRL, extraocular movements intact, sclera anicteric, conjunctiva clear. No ptosis. ENT: Ears normal, nares patent, oropharynx clear without exudates, moist mucous membranes. NECK: Trachea midline, full range of motion, supple. LUNGS: diminished bilaterally, breathing less labored. HEART: Regular rate and rhythm ABDOMEN: Soft, nontender, nondistended, normoactive bowel sounds, +g/j tube EXTREMITIES: 2+ pulses, warm, well-perfused, no edema. NEUROLOGICAL: garbled speech, facial symmetry LABS Laboratory Results - last 24 hr 06/14/18 06/15/18 06/15/18 12:49 08:55 08:55 WBC 6.2 6.0 RBC 2.48 L 2.79 L Hgb 7.5 L 8.4 L Hct 22.3 L 25.7 L D MCV 90.0 92.1 MCH 30.3 30.2 MCHC 33.7 32.8 RDW 16.0 H 16.3 H Plt Count 263 251 MPV 6.6 L 6.8 L Absolute Neuts (auto) 3.4 3.1 Neutrophils % 54.2 51.2 Lymphocytes % 16.9 19.6 Monocytes % 14.8 H 11.8 H Eosinophils % 13.4 H 16.6 H Basophils % 0.7 0.8 Nucleated RBC % 0 0 Sodium 139 Potassium 3.3 L Chloride 107 Carbon Dioxide 26 Anion Gap 5 L BUN 22 H Creatinine 1.3 Creat Clearance w eGFR 52.22 Random Glucose 114 H Calcium 7.9 L Magnesium 1.8 Total Bilirubin 0.2 AST 32 ALT 22 Alkaline Phosphatase 126 H Total Protein 5.4 L Albumin 2.3 L HOSPITAL COURSE: Patient is an 87 year-old male with a past medical history as noted below. He is from [facility] and comes to [facility] with acute urinary retention due to self- removal of sotelo. He is s/p suprapubic aspiration of bladder. Had a cysto with sotelo placement in the OR on 06/13/2018. : Acute Urinary Retention, resolved s/p sotelo placement in the OR on 06/13/2018 (s /p cysto/dilation/sotelo insertion). BPH/hx of hydronephrosis s/p needle decompression in ED. urine cultures shows bacterial sensitivity to Levaquin (acinetobacter baumannii haemol). Will change from Ceftriaxone (intermediate sensitivity) to Levaquin (sensitivity ) x 5 more days Renal: Acute on chronic kidney disease/Azotemia left hydro on abd ct. creatinine now within normal limits. card: Hypertension: controlled. on amlodipine, metoprolol. Neuro: Seizure disorder. hx of subdural hematoma, 2 evacuations. followed by neuro. On dilantin 100mg bid. Endocrine: Hypothyroidism. on Levothyroxine disposition: molst form signed and in chart. discharge back to [facility] today. Date of Admission:06/12/18 Date of Discharge: 06/16/18 Minutes to complete discharge: 60 Discharge Summary Reason For Visit: UTI Condition: Improved - Instructions Diet, Activity, Other Instructions: Mr Lutz/facility staff: You were admitted to [facility] on 06/12/2018 for UTI and replacement of your sotelo catheter. You had a cystoscopy and a new sotelo inserted on 06/13/2018. Here are our recommendations: Acute Urinary Retention patient went to the OR on 06/13/2018 for cystoscopy, dilation and sotelo insertion. Please monitor output daily. Please call urology and follow up outpatient. (urology referral is discharge packet). UTI Urinary tract infection. You were started on Ceftriaxone IV since admission. Your urine culture shows sensitivities to Levaquin. Please continue Levaquin 250mg daily for 5 more days. Please have a repeat urine culture upon completion of the antibiotics to assure that your infection has cleared. continue all other medications as outlined in your discharge instructions. I am available for questions. Thank you for allowing us to care for you. [facility] [phone] Referrals: Sathish Manuel MD [Staff Physician] - Disposition: HALFWAY FACILITY - Home Medications Comprehensive Discharge Medication List: Ambulatory Orders Brimonidine Tartrate/Timolol [Combigan 0.2%-0.5% Eye Drops] 1 drop OD DAILY 01/13 Pantoprazole Suspension [Protonix Packets For Oral Suspension -] 40 mg PEG DAILY packet 04/07/18 Amlodipine Besylate [Norvasc -] 10 mg PEG DAILY #30 tablet 04/08/18 Docusate Sodium [Colace -] 100 mg PEG DAILY #60 capsule 04/08/18 Levothyroxine [Synthroid -] 50 mcg PEG DAILY@0600 #0 syr 04/08/18 Metoprolol Tartrate [Lopressor -] 50 mg PEG BID #60 tablet 04/08/18 Albuterol 2.5/Ipratropium 0.5 [Duoneb -] 1 neb IH QID 04/27/18 Guaifenesin 400 mg NGT BID 04/27/18 Scopolamine 1 each TD ASDIR 04/27/18 levETIRAcetam [Keppra Oral Solution -] 500 mg PEG BID 04/27/18 Brimonidine Tartrate [Alphagan 0.2% -] 1 drop OD DAILY drops 05/01/18 Doxazosin Mesylate [Cardura] 4 mg PEG HS #30 tablet 06/03/18 Phenytoin Oral Suspension [Dilantin Oral Suspension 100 MG/4 ML] 100 mg GT BID cup 06/03/18 Acetaminophen [Tylenol .Regular Strength -] 650 mg GT Q6H PRN 06/12/18 Atorvastatin Ca [Lipitor] 10 mg GT HS 06/12/18 Cefuroxime Axetil Suspension [Ceftin Oral Suspension -] 500 mg GT BID 4 Days # 200 ml 06/15/18 Dorzolamide HCl [Trusopt 2% -] 1 drop OD DAILY drops 06/15/18 Timolol 0.5% [Timoptic 0.5%] 1 drop OD DAILY drops 06/15/18 This patient is new to me today: No Emergency Visit: Yes ED Registration Date: 06/12/18 Care time: The patient presented to the Emergency Department on the above date and was hospitalized for further evaluation of their emergent condition. Critical Care patient: No - Discharge Referral Referred to [facility] No
[2018-06-15] MEDS ORDERED: CEFUROXIME AXETIL 250 MG/5 ML BOTTLE GT SCH (22:00)
[2018-06-15] MEDS: DOXAZOSIN MESYLATE 4 MG TABLET PEG SCH (22:05)
[2018-06-16] MEDS ORDERED: PT OWN MED DRAWER 7, Y5N ONE (08:47)
[2018-06-16] MEDS: guaiFENesin 200 MG/10 ML 10 ML UNIT-DOSE CUPS NGT SCH (09:08)
[2018-06-16] MEDS: amLODIPine BESYLATE 5 MG TABLET (FP) PEG SCH (09:09)
[2018-06-16] MEDS: PANTOPRAZOLE SOD 40 MG SUSPENSION PACKET PEG SCH (09:09)
[2018-06-16] MEDS: levETIRAcetam 500 MG/5 ML ORAL SOLUTION (UNIT-DOSE CUPS) PEG SCH (09:10)
[2018-06-16] MEDS: METOPROLOL TARTRATE 50 MG TABLET (FP) PEG SCH (09:10)
[2018-06-16] MEDS: PHENYTOIN 100 MG/4 ML U-D CUP GT SCH (09:10)
[2018-06-16] MEDS: SCOPOLAMINE HYDROBROMIDE 1 PATCH PATCH.TD72 TD SCH (09:11)
[2018-06-16] MEDS: TIMOLOL 0.5% OPHTHALMIC SOL 5 ML BOTTLE OD SCH (09:11)
[2018-06-16] MEDS: DORZOLAMIDE 2% HCL OPHTHALMIC SOLUTION 10 ML BOTTLE OD SCH (09:12)
[2018-06-16 09:41] VITALS: BP 146/82; PULSE 76; TEMP 97.7
== END 2018-06-16 11:43 | DRG 698 ==
LOC: JER 12:45 → JERBED 23:58 → J5S 06-13 05:08
PROVIDERS: ADMIT Internal Medicine; ATTEND Nurse Practitioner Family
PROC: 0WHR8YZ Insertion of Other Device into Genitourinary Tract, Via Natural or Artificial Opening Endoscopic (ICD-10-PCS; 2018-06-13)
PROC: 3E0H76Z Introduction of Nutritional Substance into Lower GI, Via Natural or Artificial Opening (ICD-10-PCS; 2018-06-13)
PROC: 0T7D8DZ Dilation of Urethra with Intraluminal Device, Via Natural or Artificial Opening Endoscopic (ICD-10-PCS; principal; 2018-06-13 08:30)
DX: T83.511A Infection and inflammatory reaction due to indwelling urethral catheter, initial encounter (principal); R53.2 Functional quadriplegia; R64 Cachexia; J96.10 Chronic respiratory failure, unspecified whether with hypoxia or hypercapnia; N17.9 Acute kidney failure, unspecified; N13.6 Pyonephrosis; Y84.9 Medical procedure, unspecified as the cause of abnormal reaction of the patient, or of later complication, without mention of misadventure at the time of the procedure; Z68.22 Body mass index [BMI] 22.0-22.9, adult; I25.10 Atherosclerotic heart disease of native coronary artery without angina pectoris; I12.9 Hypertensive chronic kidney disease with stage 1 through stage 4 chronic kidney disease, or unspecified chronic kidney disease; N18.9 Chronic kidney disease, unspecified; G40.909 Epilepsy, unspecified, not intractable, without status epilepticus; F03.90 Unspecified dementia, unspecified severity, without behavioral disturbance, psychotic disturbance, mood disturbance, and anxiety; N40.1 Benign prostatic hyperplasia with lower urinary tract symptoms; M35.3 Polymyalgia rheumatica; M54.10 Radiculopathy, site unspecified; R33.8 Other retention of urine; D72.1 Eosinophilia; M54.5 Low back pain; K58.9 Irritable bowel syndrome, unspecified; E03.9 Hypothyroidism, unspecified; E88.09 Other disorders of plasma-protein metabolism, not elsewhere classified; R13.10 Dysphagia, unspecified; Z95.1 Presence of aortocoronary bypass graft; Z74.01 Bed confinement status; Z86.73 Personal history of transient ischemic attack (TIA), and cerebral infarction without residual deficits; Z93.1 Gastrostomy status
CPT/HCPCS: 36415; 80048; 80053; 81003; 81015; 82607; 82803; 83605; 83735; 84100; 85025; 85610; 85730; 86682; 87040; 87086; 87186; 94760; 97162-GP; 99284-25; J0131; J7030